=== PATIENT | male | born 1940 | race Caucasian/White ===

== ENCOUNTER → 2021-01-11 14:00 | Outpatient (CLI) | payer MEDICARE, SELFPAY ==
[2021-01-11 14:35] LABS: Chloride 104 mmol/L (98-107)
[2021-01-11 14:36] LABS: Potassium 4.8 mmoL/L (3.5-5.1); Sodium 139 mmol/L (136-145)
[2021-01-11 14:38] LABS: Blood Urea Nitrogen 13 mg/dl (9-20); Estimated Glomerular Filt Rate 81 ml/min (>60); GFR (African American) 98 ML/MIN (>60)
[2021-01-11 14:39] LABS: Alanine Aminotransferase 22 U/L (12-78); Albumin Level 3.8 g/dl (3.5-5.0); Albumin/Globulin Ratio 1.5 (1.1-1.8); Alkaline Phosphatase 86 U/L (38-126); Anion Gap 11.8 mEq/L (5-15); Aspartate Amino Transferase 26 U/L (17-59); Bilirubin,Total 0.4 mg/dl (0.2-1.3); Calcium 9.1 mg/dl (8.4-10.2); Carbon Dioxide 28 mmol/L (22.0-30.0); Chol/HDL Ratio 2.3 (1-3.5); Cholesterol 136 mg/dl (140-200); Globulin 2.6 g/dL (1.3-3.2); Glucose 73 mg/dl (74-100); HDL Cholesterol 58 mg/dl (40-60); Total Protein,Serum 6.4 g/dl (6.3-8.2); Triglycerides 132 mg/dl (30-150); VLDL Cholesterol 26 mg/dL (0-40)
[2021-01-11 14:56] LABS: Direct LDL Cholesterol 49.86 mg/dL (100-129)
[2021-01-11 21:39] LABS: Prostate Specific Ag Screen 2.4 ng/ml (0.0-4.0)
== END ==
PROVIDERS: Visit Provider Family Medicine
DX: I10 Essential (primary) hypertension (principal); Z12.5 Encounter for screening for malignant neoplasm of prostate; E78.5 Hyperlipidemia, unspecified
CPT/HCPCS: 80053; 80061; G0103

== ENCOUNTER → 2023-01-29 12:22 | Outpatient (CLI) | payer MEDICARE, SELFPAY ==
[2023-01-29 19:05] LABS: Alanine Aminotransferase 30 U/L (12-78); Albumin/Globulin Ratio 1.4 (1.1-1.8); Alkaline Phosphatase 110 U/L (38-126); Aspartate Amino Transferase 37 U/L (17-59); Bilirubin,Total 0.3 mg/dl (0.2-1.3); Blood Urea Nitrogen 18 mg/dl (9-20); Calcium 8.7 mg/dl (8.4-10.2); Carbon Dioxide 25 mmol/L (22.0-30.0); Chloride 106 mmol/L (98-107); Chol/HDL Ratio 3.3 (1-3.5); Cholesterol 163 mg/dl (140-200); Estimated Glomerular Filt Rate 64 ml/min (>60); GFR (African American) 78 ML/MIN (>60); Globulin 2.8 g/dL (1.3-3.2); Glucose 88 mg/dl (74-100); HDL Cholesterol 49 mg/dl (40-60); Sodium 139 mmol/L (136-145); Total Protein,Serum 6.8 g/dl (6.3-8.2); Triglycerides 258 mg/dl (30-150); VLDL Cholesterol 52 mg/dL (0-40)
[2023-01-29 19:16] LABS: Direct LDL Cholesterol 73.91 mg/dL (100-129)
[2023-01-29 19:36] LABS: Prostate Specific Ag Screen 2.3 ng/ml (0.0-4.0)
== END ==
PROVIDERS: PCP Family Medicine; Visit Provider Family Medicine
DX: E78.5 Hyperlipidemia, unspecified (principal); I10 Essential (primary) hypertension; Z12.5 Encounter for screening for malignant neoplasm of prostate
CPT/HCPCS: 80053; 80061; G0103

== ENCOUNTER 2023-09-13 11:32 | Outpatient (CLI) | payer MEDICARE, SELFPAY ==
--- NOTE | 2023-09-13 11:35 | XR_ITS ---
FINAL REPORT CLINICAL HISTORY: SOB FINDINGS: 2 views of the chest were obtained . The heart is normal in size. The mediastinum is within normal limits. The lungs are hyperexpanded consistent with COPD. There is mild bibasilar atelectasis.. There is no pneumothorax. Osseous structures are unremarkable. IMPRESSION: COPD with mild bibasilar atelectasis. Reviewed, Interpreted and Dictated by Stanford Grigsby III, MD Transcribed by Leticia Hale Authenticated and [facility]
== END 2023-09-13 23:59 | disposition home or self-care (01) ==
LOC: RAD 11:34
PROVIDERS: PCP Family Medicine; Visit Provider Internal Medicine Pulmonary Disease
DX: R09.02 Hypoxemia (principal)
CPT/HCPCS: 71046

== ENCOUNTER 2023-10-02 08:51 | Outpatient (CLI) | payer MEDICARE, SELFPAY ==
--- NOTE | 2023-10-02 08:52 | CT_ITS ---
FINAL REPORT TECHNIQUE: Axial images were obtained from the lung apex to the mid abdomen by computed tomography. Coronal reformatted images were obtained. This study was performed with techniques to keep radiation doses as low as reasonably achievable, (ALARA). Individualized dose reduction techniques using automated exposure control or adjustment of mA and/or kV according to the patient''s size were employed. CLINICAL HISTORY: SOB COMPARISON: None FINDINGS: There is advanced emphysema. Scattered scarring is noted. There is no acute lung disease. Incidental note is made of a left lower lobe nodule on image 49 measuring 6 mm. No pleural or pericardial effusion is seen. No adenopathy is present. There is soft tissue asymmetry in the left piriform sinus. Recommend correlation with direct visualization. This could be related to cervical esophageal effacing the piriform sinus. IMPRESSION: No findings to account for patient's symptoms. 6 mm left lower lobe nodule. 6-month follow-up recommended. Soft tissue asymmetry left piriform sinus. Recommend correlation with direct visualization. Reviewed, Interpreted and Dictated by Jesus Nolasco MD Transcribed by Rowena Harley Authenticated and [facility]
[2023-10-02] MEDS: ALBUTEROL 0.083% 2.5 MG/3 ML NEB IH (10:26)
--- NOTE | 2023-10-02 10:26 | PC.NURSE ---
PFT complete weaned to Pre and Post Spirometry due to PT unable to complete a full loop efficiently, Pt gave best effort he is capable of. Albuterol 0.083% given via HHN, per written protocol, Pt tolerated tx well. 6 Minute Walk test completed.
== END 2023-10-02 23:59 | disposition home or self-care (01) ==
LOC: RAD 08:52
PROVIDERS: PCP Family Medicine; Visit Provider Internal Medicine Pulmonary Disease
DX: R91.8 Other nonspecific abnormal finding of lung field (principal); R07.89 Other chest pain; J44.1 Chronic obstructive pulmonary disease with (acute) exacerbation; R09.02 Hypoxemia; Z87.891 Personal history of nicotine dependence; R06.09 Other forms of dyspnea
CPT/HCPCS: 71250; 94060; 94618; J7613

== ENCOUNTER 2023-11-09 12:50 | Outpatient (CLI) | payer MEDICARE, SELFPAY ==
--- NOTE | 2023-11-09 12:50 | CT_ITS ---
FINAL REPORT TECHNIQUE: Thin section axial CT images with coronal and sagittal reformats were performed through the neck. This study was performed with techniques to keep radiation doses as low as reasonably achievable (ALARA). Individualized dose reduction techniques using automated exposure control or adjustment of mA and/or kV according to the patient''s size were employed. CLINICAL HISTORY: recurrent sinus infections, nasal congestion FINDINGS: There is abnormal loss of height throughout the cervical discs with prominent anterior osteophyte formation at C5-6. The paranasal sinuses are well aerated. No air-fluid levels are identified. There is dense vascular calcification of the carotid bifurcation. There are moderate changes of centrilobular emphysema. IMPRESSION: Degenerative disc disease as above. Reviewed, Interpreted and Dictated by Larry Camacho MD Transcribed by Jenny Chavez Authenticated and [facility]
== END 2023-11-09 23:59 | disposition home or self-care (01) ==
LOC: RAD 12:50
PROVIDERS: PCP Family Medicine; Visit Provider Nurse Practitioner
DX: J34.89 Other specified disorders of nose and nasal sinuses (principal); J32.9 Chronic sinusitis, unspecified; Z87.891 Personal history of nicotine dependence
CPT/HCPCS: 70490

== ENCOUNTER 2024-05-08 10:59 | Outpatient (CLI) | payer MEDICARE, SELFPAY ==
--- NOTE | 2024-05-08 11:12 | XR_ITS ---
FINAL REPORT TECHNIQUE: Chest PA & Lateral CLINICAL HISTORY: SOB COMPARISON: 09/13/2023 FINDINGS: 2 views of the chest were performed. The heart size is normal. The mediastinum is within normal limits. The lungs are hyperinflated. Chronic changes are noted at the bases. There are no pleural effusions. There is no pneumothorax. There appears to be a new 6.0 x 4.5 cm mass in the posterior right hemithorax, best seen on the lateral view. IMPRESSION: New right hemithorax mass. Recommend infused thoracic CT for further evaluation. Reviewed, Interpreted and Dictated by Larry Camacho MD Transcribed by Bernie Doe Authenticated and [facility]
== END 2024-05-08 23:59 | disposition home or self-care (01) ==
LOC: RAD 11:01
PROVIDERS: PCP Family Medicine; Visit Provider Internal Medicine Pulmonary Disease
DX: R06.02 Shortness of breath (principal)
CPT/HCPCS: 71046

== ENCOUNTER 2024-05-12 12:00 | Outpatient (CLI) | payer MEDICARE, SELFPAY ==
--- NOTE | 2024-05-12 12:01 | CT_ITS ---
FINAL REPORT TECHNIQUE: Axial images were obtained through the chest without contrast. Coronal and sagittal images were obtained and reviewed. This study was performed with techniques to keep radiation doses as low as reasonably achievable, (ALARA). Individualized dose reduction techniques using automated exposure control or adjustment of mA and/or kV according to the patient's size were employed. CLINICAL HISTORY: Pulm normal chest x-ray concerning for lung mass COMPARISON: Chest x-ray 05/08/[address] chest 10/01/2024 FINDINGS: There are few small scattered mediastinal lymph nodes. The heart size is normal. There is no pericardial or pleural effusion. Limited images of the upper abdomen demonstrate benign-appearing cysts in both kidneys. Right cyst measures 6.4 cm in greatest dimension. There is a new mass in the superior segment of the right lower lobe measuring 5.1 x 4.4 cm. There may be a few air bronchograms of the periphery of the mass. No other mass identified. There are moderate changes of centrilobular emphysema. IMPRESSION: Mass superior segment right lower lobe, new from prior. This could be inflammatory or neoplastic. PET-CT and/or tissue sampling recommended. Reviewed, Interpreted and Dictated by Larry Camacho MD Transcribed by Rowena Harley Authenticated and [facility]
== END 2024-05-12 23:59 | disposition home or self-care (01) ==
LOC: RAD 12:01
PROVIDERS: PCP Family Medicine; Visit Provider Internal Medicine Pulmonary Disease
DX: R91.8 Other nonspecific abnormal finding of lung field (principal)
CPT/HCPCS: 71250

== ENCOUNTER 2024-05-20 07:10 | Outpatient (CLI) | payer MEDICARE, SELFPAY ==
[2024-05-20] VITALS (13 sets, daily range): BP systolic 110–154; BP diastolic 55–84; PULSE 54–69; RESP 16–20; TEMP 36.6; O2SAT 91–98
--- NOTE | 2024-05-20 07:11 | CT_ITS ---
FINAL REPORT CLINICAL HISTORY: Lung Mass - RLL FINDINGS: CT GUIDED LUNG CORE BIOPSY. HISTORY: Right lower lobe mass ATTENDING PHYSICIAN: Dr. Nolasco PHYSICIAN LUMBER SALES SUPERVISOR: Delvis Jesus PA-C PROCEDURE: After informed consent was obtained and a timeout was performed, the patient was prepped and draped in usual sterile fashion over the posterior chest. Utilizing local anesthesia and sterile technique with a coaxial system, access to lesion was obtained under direct CT guidance. A total of 3 separate 18-gauge core biopsies were obtained. Post biopsy films demonstrate a small postprocedural pneumothorax. The patient received moderate procedural sedation. The patient tolerated the procedure well and left the department in good condition. PROCEDURAL SEDATION: 2 mg of IV Versed and 50 mcg of Fentanyl were administered. Continuous vital sign monitoring was used. An RN was present during the sedation process. Overall sedation time was 30 minutes. IMPRESSION: Status post CT guided core biopsy of right lower lobe mass without immediate significant complication. Films reviewed , interpreted and dictated by Dr. Nolasco. Transcribed by Delvis Villalta PA-C. Reviewed, Interpreted and Dictated by Jesus Nolasco MD Transcribed by KIM Jennings Authenticated and [facility]
[2024-05-20 07:48] LABS: Basophils % 0.3 % (0.1-2.0); Eosinophils # 0.2 K/mm3 (0.0-0.4); Eosinophils % 2.3 % (0.1-12.0); Hematocrit 40.8 % (42.0-52.0); Hemoglobin 13.2 g/dL (14.1-18.0); Lymphocytes # 1.9 K/mm3 (0.7-4.5); Lymphocytes % 21.3 % (10-50); Mean Corpuscular HGB Conc 32.4 g/dL (31.8-35.4); Mean Corpuscular Hemoglobin 29.2 pg (27.0-31.2); Mean Corpuscular Volume 90.3 fl (80-94); Monocytes # 1.2 K/mm3 (0.1-1.0); Monocytes % 13.6 % (1.7-9.3); Neutrophils # 5.5 K/mm3 (1.8-7.8); Neutrophils % 61.6 % (37.0-80.0); Platelet Count 274 K/mm3 (142-424); Red Blood Count 4.52 M/mm3 (4.60-6.20)
[2024-05-20 08:01] LABS: INR 0.85 (0.9-1.1); Prothrombin Time 9.5 seconds (9.2-12.1)
--- NOTE | 2024-05-20 08:47 | XR_ITS ---
FINAL REPORT CLINICAL HISTORY: POST BIOPSY COMPARISON: 05/08/2024 FINDINGS: Mild right basilar atelectasis is noted. The known right lung mass is not readily apparent on this portable view. There is no evidence of effusion or pneumothorax. Mediastinum is unremarkable. Heart size is normal. IMPRESSION: No pneumothorax postbiopsy. Reviewed, Interpreted and Dictated by Jesus Nolasco MD Transcribed by Rowena Harley Authenticated and [facility]
--- NOTE | 2024-05-20 11:53 | XR_ITS ---
FINAL REPORT CLINICAL HISTORY: 2HR FILM POST LUNG BX, shortness of breath COMPARISON: Chest x-ray 2 hours prior FINDINGS: There is no evidence of right-sided pneumothorax following right lung biopsy. The known right lung mass not evident on chest radiography. There is no evidence of pleural effusion. IMPRESSION: No evidence of pneumothorax. Reviewed, Interpreted and Dictated by Jesus Nolasco MD Transcribed by Bernie Doe Authenticated and [facility]
== END 2024-05-20 12:31 | disposition home or self-care (01) ==
PROVIDERS: PCP Family Medicine; Visit Provider Internal Medicine Pulmonary Disease
DX: R91.1 Solitary pulmonary nodule (principal)
CPT/HCPCS: 71045; 77012; 85025; 85610; 88305; 88312; 94762; J2250; J3010

== ENCOUNTER 2024-06-27 09:59 | Day surgery (SDC) | payer MEDICARE, SELFPAY ==
[2024-06-27 10:09] VITALS: BP 137/65; PULSE 78; RESP 22; TEMP 36.2; O2SAT 94; BMI 33.0
[2024-06-27] MEDS: 0.9 % SODIUM CHLORIDE 500 ML 25 ML IV (10:32)
[2024-06-27 10:35] VITALS: BP 145/75; PULSE 74; RESP 18; TEMP 36.4; O2SAT 93
--- NOTE | 2024-06-27 10:36 | HMH.PROCNOTE ---
[facility] Procedure Note Date: 06/27/24 Time: 10:37 Procedure Note:: Chart review: The patient is here for evaluation of intermittent bouts of gross hematuria. He is status post a prior TUR prostate. He says that he is happy how he urinates at home. He is on Proscar and Flomax. He had a CT scan on 07/01 that suggested a bladder mass. He has bilateral renal cysts at 8.5 cm. He has severe right renal atrophy. He also has a 2 cm right adrenal mass. Preop diagnosis: Hematuria Postop diagnosis: Hematuria; prostatic urethritis; erythematous patch right lateral bladder wall Operative note: The patient was brought to the cystoscopy suite. He is prepped and draped using a 6 standard technique. He underwent flexible cystoscopy. The anterior urethra is unremarkable. The posterior urethra from the level of the verumontanum has erythematous changes and tends to be hemorrhagic to touch. At the bladder neck the patient has had prior TUR prostate that remains open. The patient's bladder has a somewhat raised patch on the right lateral bladder wall. I hold somewhat concerning for bladder lesion right lateral wall but a raised area that may need biopsy considerations. For hematuria he might need retrogrades as well and/or uretersocopy. I will consult urology. We just do not want to miss carcinoma. I will submit a urine cytology today. He very well may need fulguration of the prostatic urethra because that seems to be a bleeding source. He is already on Proscar. I am going to recommend consultation at to see if the biopsy or fulguration of the posterior urethra is warranted..
== END 2024-06-27 10:53 | disposition home or self-care (01) ==
PROVIDERS: PCP Family Medicine; Visit Provider Urology
PROC: 0TJB8ZZ Inspection of Bladder, Via Natural or Artificial Opening Endoscopic (ICD-10-PCS; CPT 52000; principal; 2024-06-27 11:15)
DX: N34.2 Other urethritis (principal); L53.9 Erythematous condition, unspecified; R31.0 Gross hematuria
CPT/HCPCS: 52000

== ENCOUNTER 2024-08-19 10:41 | Outpatient (CLI) | payer MEDICARE, SELFPAY ==
--- OUTSIDE RECORDS SUMMARY | 2024-08-19 10:44 | XMS_ITS | Data Portability ---
Author Organization [place] - [facility] - [facility] Address [address] [place] [id number] Assessment Encounter Date Assessment Date Assessment LastModified by Organization Details LastModified Time 02/01/2022 02/01/2022 Patient Educatio n was printed, I have reviewed the Past Medical, Family, and Social Histories along with ROS and all orders in today's record, and have noted any changes. Medications, charts and records reviewed in full today. . Blood pressure 108/60, heart rate 59, weight 211.6 lb. . PFT: 01/2022 revealed severe obstruction with marked improvement post bronchodilators. LAST ECHO: 06/2021 LVEF of 60% to 70%. LAST ISCHEMIC EVAL: None on file. LAST HEART CATH: 06/2021 mild diffuse coronary artery disease. LAST LDL: None on file. Followed by PCP. LAST CNI: 06/2021 bilateral 1% to 39% ICA stenosis. PAST LHC: None on file. . Plan: Offered pulmonology referral. Offered electrophysiology referral. After discussion of potential benefits of subspecialty referral, the patient and his daughter wished to declined at this time. 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 EKG at follow-up. Follow-up in 3 to 4 months. . -Continue other current medications. -Continue aggressive risk factor modification. -Recommend LDL less than 70. -Encouraged regular exercise and activity. . . . . This note was dictated using Platogo software. If something is unclear, or does not make sense, please do not hesitate to contact our office at [phone] for clarification. . Not available 02/01/2022 14:30:18 05/29/2022 05/29/2022 Patient Educatio n was printed, I have reviewed the Past Medical, Family, and Social Histories along with ROS and all orders in today's record, and have noted any changes. Medications, charts and records reviewed in full today. . Blood pressure 130/62, heart rate 71, weight 223 lb. EKG today reveals sinus rhythm with a rate of 71, low voltage throughout, possible chronic pulmonary pattern, abnormal EKG. . PFT: 01/2022 revealed severe obstruction with marked improvement post bronchodilators. LAST ECHO: 06/2021 LVEF of 60% to 70%. LAST ISCHEMIC EVAL: None on file. LAST HEART CATH: 06/2021 mild diffuse coronary artery disease. LAST LDL: None on file. Followed by PCP. LAST CNI: 06/2021 bilateral 1% to 39% ICA stenosis. PAST LHC: None on file. . Plan: Restart Plavix. Recommend laboratory studies in the next few weeks. Monitor CBC. No other changes from a cardiovascular standpoint. EKG at follow-up. Follow-up in 3 to 4 months. . -Continue other current medications. -Continue aggressive risk factor modification. -Recommend LDL less than 70. -Encouraged regular exercise and activity. . . . . This note was dictated using Platogo software. If something is unclear, or does not make sense, please do not hesitate to contact our office at [phone] for clarification. . Not available 05/29/2022 15:52:26 Plan of Treatment Reminders Order Date Submit Date Provider Last Modified By Organization Details Last Modified Time Details Appointments None recorded. Lab T4, free, serum 2021 022 [email or web address] 1 [facility] (Centralized Scheduling), [place] [place], [address], 10:48:15 TSH, serum or plasma 2021 022 [email or web address] 1 [facility] (Centralized Scheduling), [place], [address], 10/05/202 2 10:48:16 CMP, serum or plasma 2021 022 ZAK Jenkins (Centralized Scheduling), [address] [place] [address] [place], [address], 2 15:37:51 Referral None recorded. Procedures None recorded. Surgeries None recorded. Imaging electrocard [facility]ogram 2022 023 [email or web address], [address] [place] [address] [address], [place], [address], 3 14:29:09 PFT, complete 2021 022 [email or web address] 1 [facility] (Centralized Scheduling), [place], [address], 2 10:48:28 CT, chest, w/o contrast 2021 022 [email or web address] 1 [facility] (Centralized Scheduling), [facility] [place] [address] [place], [address], 2 10:48:28 electrocard iogram [email or web address], [address] [place] [address] [address], [place], [address], 2 13:55:51 Medication Orders amiodarone 200 mg tablet 2021 [email or web address], [address], 2 11:11:21 Patient TargetsNo targets recorded. Patient InstructionsNo instructions recorded. Reason for Referral None Reported. Results Created Date Observation Date Name Description Value Unit Range Abnormal Flag Note LastModifiedBy Organization Detail LastModifiedTime 01/10/20 22 01/09/2022 COMP METAB OLIC PANEL note See Note Order ing Provi amy: Delbert Padilla is ENDOSCOPE TECHNICIAN Not Available [address] [place], [address], 01/09/2022 15:37:51 01/10/20 22 01/09/2022 COMP METAB OLIC PANEL sodium 138 mmol/ L 136-14 5 normal Not Available [address] , [place], [address], 01/09/2022 15:37:51 01/10/20 22 01/09/2022 COMP METAB OLIC PANEL potassium 4.8 mmol/ L 3.5-5. 1 normal Not Available [address] Tianna Rose, [place], [address], 01/09/2022 15:37:51 01/10/20 22 01/09/2022 COMP METAB OLIC PANEL chloride 104 mmol/ L 98-107 normal Not Available [address] Tianna Rose, [place], [address], 01/09/2022 15:37:51 01/10/20 22 01/09/2022 COMP METAB OLIC PANEL carbon dioxide 25 mmol/ L 24-33 normal Not Available [address] Tianna Rose, [place], [address], 01/09/2022 15:37:51 01/10/20 22 01/09/2022 COMP METAB OLIC PANEL anion gap 13.8 mmol/ L 10-20 normal Not Available [address] Tianna Rose, [place], [address], 01/09/2022 15:37:51 01/10/20 22 01/09/2022 COMP METAB OLIC PANEL glucose 86 mg/dL 70-99 normal Not Available [address] Tianna Rose, [place], [address], 01/09/2022 15:37:51 01/10/20 22 01/09/2022 COMP METAB OLIC PANEL blood urea nitrogen 21 mg/dL 7-18 high Not Available [address] , [place], [address], 01/09/2022 15:37:51 01/10/20 22 01/09/2022 COMP METAB OLIC PANEL creatinine 1.19 mg/dL 0.70-1 .30 normal Not Available [address] , [place], [address], 01/09/2022 15:37:51 01/10/20 22 01/09/2022 COMP METAB OLIC PANEL BUN/creatini ne ratio 17 12-20 normal Not Available [address] , [place], [address], 01/09/2022 15:37:51 01/10/20 22 01/09/2022 COMP METAB OLIC PANEL total protein 6.3 g/dL 6.4-8. 2 low Not Available [address] Tianna Rose, [place], [address], 01/09/2022 15:37:51 01/10/20 22 01/09/2022 COMP METAB OLIC PANEL albumin 3.0 g/dL 3.4-5. 0 low Not Available [address] , [place], [address], 01/09/2022 15:37:51 01/10/20 22 01/09/2022 COMP METAB OLIC PANEL globulin 3.3 g/dL 1.5-4. 0 normal Not Available [address] , [place], [address], 01/09/2022 15:37:51 01/10/20 22 01/09/2022 COMP METAB OLIC PANEL albumin/glob ulin ratio 0.9 0.5-2. 0 normal Not Available [address] , [place], [address], 01/09/2022 15:37:51 01/10/20 22 01/09/2022 COMP METAB OLIC PANEL calcium 8.3 mg/dL 8.5-10 .1 low Not Available [address] , [place], [address], 01/09/2022 15:37:51 01/10/20 22 01/09/2022 COMP METAB OLIC PANEL osmolality serum calculated 277 mOsm/ kg 272-28 8 normal Not Available [address] , [place], [address], 01/09/2022 15:37:51 01/10/2001/09/2022 COMP METAB OLIC PANEL glom filtr rate (estimated) 59 mL/mi n >60 low Not Available [address] [place], [address], 01/09/2022 15:37:51 01/10/20 22 01/09/2022 COMP METAB OLIC PANEL GFR est (if -amer ican) > 60 mL/mi n >60 normal Not Available [address] , [place], [address], 01/09/2022 15:37:51 01/10/20 22 01/09/2022 COMP METAB OLIC PANEL bilirubin total 0.2 mg/dL 0.2-1. 0 normal Use of this assay is not recom charlee d for patie nts under going treat ment with Eltro mbopa g due to the poten tial for false ly eleva germán resul ts. Not Available [address] [place], [address], 01/09/2022 15:37:51 01/10/20 22 01/09/2022 COMP METAB OLIC PANEL SGOT/AST 15 U/L 15-37 normal Not Available [address] , [place], [address], 01/09/2022 15:37:51 01/10/20 22 01/09/2022 COMP METAB OLIC PANEL SGPT/ALT 25 U/L 16-63 normal Not Available [address] , [place], [address], 01/09/2022 15:37:51 01/10/20 22 01/09/2022 COMP METAB OLIC PANEL alkaline phosphatase total 108 U/L 46-116 normal Not Available [address] , [place], [address], 01/09/2022 15:37:51 01/10/20 22 01/09/2022 COMP METAB OLIC PANEL performing lab see note - [facility] R [address] [facility] [address] Not Available [address] , [place], [address], 01/09/2022 15:37:51 01/10/20 22 01/09/2022 THYRO ID PANEL W/TSH note See Note Order ing Provi amy: Delbert Padilla is ENDOSCOPE TECHNICIAN Not Available [address] , [place], [address], 01/09/2022 15:37:51 01/10/20 22 01/09/2022 THYRO ID PANEL W/TSH T4 free 1.24 NG/dL 0.76-1 .46 normal This test may be affec germán by high level s of bioti n, found in some presc ripti on and over- the-c ounte r suppl ement s. [facility], patie nts glenys luna disco ntinu e bioti n 3 days befor e testi ng. Resul ts obtai ryan after recen t bioti n inges tion glenys luna be inter prete d with cauti on. Not Available [address] , [place], [address], 01/09/2022 15:37:51 10/03/20 22 01/09/2022 THYRO ID PANEL W/TSH thyroid stimulating hormone 2.02 uIU/m L 0.36-3 .74 normal This test may be affec germán by high level s of bioti n, found in some [facility] ripti on and over- the-c ounte r suppl ement s. [facility], patie nts shoul d disco ntinu e bioti n 3 days befor e testi ng. Resul ts obtai ryan after recen t bioti n inges tion shoul d be inter prete d with cauti on. Not Available [address] , [place], [address], 01/09/2022 15:37:51 01/10/2001/09/2022 THYRO ID PANEL W/TSH performing lab see note - [facility] [address] [facility] [address] Not Available [address] , [place], [address], 01/09/2022 15:37:51 12/29/19 elect rocar diogr am No observ ation record ed. [email or web address] [address], [place], [address], 12/28/2021 10:08:38 05/29/19 23 elect rocar diogr am No observ ation record ed. [email or web address] [address], [place], [address], 05/29/2022 12:55:00 05/29/19 23 05/29/2022 elect rocar diogr am No observ ation record ed. [email or web address] Not Available 2022 12:56:00 Result Notes None recorded. Problems Name Problem SNOMED Code Status Onset Date Resolution Date Notes Provider Name and Address Organization Details Recorded Time Essential hypertension 63158610 Active 2021 PINEDA Jacome - [place] [facility] & [place] 2 10:21:35 Coronary atherosclerosi s 185380515 Active 2021 Ester lynn null, [place] - [facility] - [place] & [place] 2 10:21:35 Ventricular tachycardia 28135671 Active 2021 Ester lynn null, [place] - [facility] [place] [facility] [place] 2 10:21:35 Bilateral stenosis of carotid arteries 490330092 Active 2021 Ester lynn null, [place] - [facility] [place] [facility] [place] 2 10:21:35 Hyperlipidemia 04803510 Active 2021 Ester lynn null, [place] - [facility] - [place] & [place] 2 10:21:35 Problem Notes None recorded. Procedures Surgical History Date Name Laterality Status Provider Name and Address Organization Details Recorded Time 022 Cardiac Catheterization completed Beverley Sal[place] - [facility] - [place] & [place] 09/26/2022 10:54:11 Colonoscopy completed Talya Blunt [place] - L [facility] - [place] & [place] 05/29/2022 12:54:29 prostatectomy completed Ester Valentin [place] - [facility] - [place] & [place] 12/28/2021 10:22:14 Imaging Results Imaging Date Name Status LastModified by Organization Details LastModified Time 12/28/2021 electrocardiogram completed [email or web address] [address], [place], [address], 12/28/2021 10:08:38 05/29/2022 electrocardiogram completed [email or web address] Mv [address], [place], [address], 05/29/2022 12:55:00 05/29/2022 electrocardiogram completed [email or web address] Informa tion not available 05/29/2022 12:56:00 Procedure Notes None recorded. Medical Equipment None Reported. Allergies Allergen ID Allergen Name Allergen Category Reaction Reaction Severity Criticality Documentation Date Start Date Code Code System Note Provider Name and Address Organization Details Recorded Time 67567 Product containin g penicilli n (product) medicatio n Not available Not available Not available 05/28/2022 04943 8001 SNOMED Ester Samara lynn null, [place] - [facility] & [place] 3 19:00:46 Medications Name Sig Start Date Stop Date Status Note LastModified by Organization Details LastModified Time atorvastati n 20 mg tablet TAKE ONE (1) TABLET BY MOUTH EVERY DAY active Not Available Not Available No t Available amiodarone 200 mg tablet Take 0.5 tablets every day by oral route for 30 days. 2021 active SW Not Available Not Available Not Avai lable clopidogrel 75 mg tablet TAKE 1 TABLET BY MOUTH EVERY DAY active Not Available Not Available No t Available aspirin 81 mg tablet,mary yed release 1 tablet Orally Once a day for 90 days active SW Not Available Not Available No t Available metoprolol succinate ER 25 mg tablet,exte nded release 24 hr TAKE ONE (1) TABLET BY MOUTH EVERY DAY 2023 active Not Available Not Available Not Avai lable Ventolin HFA 90 mcg/actuati on aerosol inhaler TWO (2) PUFF INHALED FOUR TIMES A DAY NEEDED FOR SHORTNESS OF BREATH OR WHEEZING 12/28 completed Not Available Not Available Not Available amlodipine 10 mg-benazepr il 20 mg capsule TAKE 1 CAPSULE BY MOUTH EVERY DAY active Not Available Not Available No t Available ezetimibe 10 mg tablet TAKE 1 TABLET BY MOUTH EVERY DAY active Not Available Not Available No t Available dutasteride 0.5 mg-tamsulos in ER 0.4 mg capsule ext.release 24hr mphas TAKE 1 CAPSULE BY MOUTH EVERY DAY active Not Available Not Available No t Available Vitals Date Recorded Body height Body weight Oxygen saturation Oxygen saturation in Arterial blood by Pulse oximetry Heart rate Systolic blood pressure Diastolic blood pressure Provider Name and Address Organization Details Last Updated DateTime 2 162.56 cm 33914.4 4 g 92 % 92 % 61 /min 122 mm[Hg] 82 mm[Hg] Ester lynn [place] - [facility] & [place] 2 10:19:12 Date Recorded Body height Body mass index (BMI) Body weight Oxygen saturation Oxygen saturation in Arterial blood by Pulse oximetry Heart rate Systolic blood pressure Diastolic blood pressure Provider Name and Address Organization Details Last Updated DateTime 3 175.26 cm 32.9 kg/m2 978779. 1 g 93 % 93 % 71 /min 130 mm[Hg] 62 mm[Hg] Talya SUNG [facility] & [place] 3 12:53:19 Date Recorded Body height Body mass index (BMI) Body weight Oxygen saturation Oxygen saturation in Arterial blood by Pulse oximetry Heart rate Systolic blood pressure Diastolic blood pressure Provider Name and Address Organization Details Last Updated DateTime 2 162.56 cm 36.3 kg/m2 16702.1 5 g 93 % 93 % 59 /min 108 mm[Hg] 60 mm[Hg] Ester Pascual leah [facility] & [place] 2 15:44:18 Social History Question Answer Notes LastModified by [employer] Details LastModified Time Tobacco Smoking Status Former Smoker Talya Blunt [facility] & [place] 05/29/2022 12:54:17 What Is Your Level Of Caffeine Consumption? None [email or web address] Information not available 12/28/2021 Sex: Unknown Functional Status Question Answer Note LastModified by [employer] Details LastModified Time Do you use any illicit or recreational drugs? No [email or web address] Information not available 12/28/2021 What is your level of alcohol consumption? None [email or web address] Information not available 12/28/2021 Mental Status None recorded. Family History Relationship Description Onset Age of this Age Resolved Age Notes LastModified by Organization Details LastModified Time Father No current problems or disability [email or web address] Not available 0 12/28/2021 10:21:47 Mother No current problems or disability [email or web address] Not available 0 12/28/2021 10:21:47 Medical History Condition Response Coronary Artery Disease Y Hyperlipidemia Y Hypertension Y High Cholesterol Y Past Encounters Encounter ID Performer Location Encounter Start Date Encounter Closed Date Diagnosis/Indication Diagnosis SNOMED-CT Code Diagnosis ICD10 Code Diagnosis Note [id number] Liang Vidal MD [address] [place] [id number] 12/28/2021 09:14:51 12/28/2021 09:48:17 Coronary atherosclerosis 106558106 I25.10 Essential hypertension 14204313 I10 Patient Education was printed, I have reviewed the Past Medical, Family, and Social Histories along with ROS and all orders in today's record, and have noted any changes.Me dications, charts and records reviewed in full today. EKG today reveals sinus rhythm with first-degr ee AV block, rate of 61 beats per minute, poor R-wave progressio n, nonspecifi c T-wave abnormalit y, abnormal EKG. LAST ECHO: 06/2021 LVEF of 60% to 70%. LAST ISCHEMIC EVAL: None on file. LAST HEART CATH: 06/2021 mild diffuse coronary artery disease. LAST LDL: None on file. Followed by PCP. LAST CNI: 06/2021 bilateral 1% to 39% ICA stenosis.* * PAST LHC: None on file..Plan :It is unlikely that the patient's amiodarone therapy has caused significan t structural pulmonary changes due to the relatively recent addition of this medication . It is far more likely that the patient's shortness of breath is a consequenc e of long-term tobacco abuse. We will decrease the patient's amiodarone 100 mg once daily. We will screen for pulmonary fibrosis as well as perform laboratory studies and pulmonary function test.Pulmo nary function test.Labor atory studies.Hi gh-resolut ion CT chest.Decr ease amiodarone 100 mg once daily.Foll ow-up in 4 to 5 weeks.-Con tinue other current medication s.-Continu e aggressive risk factor modificati on.-Recomm end LDL less than 70.-Encour aged regular exercise and activity.. .Ru Chisholm APRN, am scribing for, and in the presence of, Liang Vidal MD...Liang Chisholm M.D. performed the services as described in this documentat ion, as scribed by Ru Younger APRN in my presence, and it is both accurate and complete.. .This note was dictated using Platogo software. If something is unclear, or does not make sense, please do not hesitate to contact our office at [phone] for clarificat ion.. 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 [id number] RU YOUNGER NP, S [address] [place] [address] 6 02/01/2022 13:14:50 02/01/2022 14:24:29 Coronary atherosclerosis 678668961 I25.10 Essential hypertension 82173364 I10 Hyperlipidemia 80397125 E78.5 Ventricula r tachycardia 13251551 I47.20 Bilateral stenosis of carotid arteries 799660883 I65.23 Long-term current use of amiodarone 7818639975 04493 Z79.899 Dyspnea on exertion 6084 5006 R06.09 Tobacco de pendence syndrome 24844743 F17.200 [id number] Liang Vidal MD [address] [place] [address] 6 05/29/2022 08:20:08 05/29/2022 09:16:37 Coronary atherosclerosis 513683972 I25.10 Essential hypertension 75718038 I10 Hyperlipidemia 86820114 E78.5 Ventricula r tachycardia 17163753 I47.20 Bilateral stenosis of carotid arteries 237733910 I65.23 Long-term current use of amiodarone 5528866599 94837 Z79.899 Dyspnea on exertion 6084 5006 R06.09 Tobacco de pendence syndrome 53767660 F17.200 Health Concerns Section Related Observation LastModified by Organization Detai ls LastModified Time None Recorded Concern Status LastModified by Organization Details LastModified Time None Recorded Advance Directives Directive None Recorded Payers Insurance Date Sequence Insurance Name Policy Number Policy Baron Covered Member ID Baron Member ID Guarantor Name 09/26/2022 1 [employer] (MEDICARE REPLACEMENT/A DVANTAGE - PPO) Celestino Lundy [id number] Celestino Lundy Notes Date Note Type Note Provider Name and Address Organization Details Recorded Time 12/28/2021 text/html Celestino is an 81-y ear-old male who is seen today in follow-up. The patient has a history significant for paroxysmal ventricular tachycardia, hypertension, hyperlipidemia, coronary artery disease, carotid artery stenosis. The patient reports that he has had an apparent worsening of his shortness of breath with an increase in frequency, now occurring with less exertion. The patient's family physician is concerned that this may be related to his amiodarone. No other cardiovascular or cardiopulmonary complaints. RU YOUNGER NP, S [address] [place] [address],[address], [place], [address], [facility] 12/28/2021 13:10:44 02/01/2022 text/html Celestino is an 81-y ear-old male who is seen today in follow-up. The patient has a history significant for paroxysmal ventricular tachycardia, hypertension, hyperlipidemia, coronary artery disease, carotid artery stenosis.Since our last visit, the patient had pulmonary function testing which revealed severe obstruction with marked improvement post bronchodilators. The patient indicates that his breathing has improved substantially. The patient has an albuterol inhaler from his primary care provider. The patient had his amiodarone decreased from 200 mg once daily to 100 mg once daily at our last visit. The patient reports that overall he is feeling much better. No other complaints. The patient was unable to get his CT of the chest as he had a CT of the chest earlier this year. RU YOUNGER NP, S [address] [place] [address],[address], [place], [address], [facility] & [place] 02/01/2022 16:05:31 05/29/2022 text/html Celestino is an 81-y ear-old male who is seen today in follow-up. The patient has a history significant for paroxysmal ventricular tachycardia, hypertension, hyperlipidemia, coronary artery disease, carotid artery stenosis.Since our last visit, the patient reports that he has been doing well. The patient did have two colonoscopies with polypectomies on multiple polyps over the last month. The patient had some bleeding was taken off Plavix. The patient is no longer taking aspirin. The patient was told by his dry cell tester that he can start Plavix again today. The patient has no cardiovascular or cardiopulmonary complaints. RU YOUNGER NP, S [address] [place] [address],[address], [place], [address], [place] - [facility] - [place] & [place] 05/29/2022 15:53:27
--- NOTE | 2024-08-19 11:00 | CT_ITS ---
PROCEDURE INFORMATION: Exam: CT Chest Without Contrast; Diagnostic Exam date and time: 08/19/2024 10:44 AM Age: 83 years old Clinical indication: Condition or disease; Lung condition and disease; Other: Mass; Additional info: 3-month follow-up TECHNIQUE: Imaging protocol: Diagnostic computed tomography of the chest without contrast. Radiation optimization: All CT scans at this facility use at least one of these dose optimization techniques: automated exposure control; mA and/or kV adjustment per patient size (includes targeted exams where dose is matched to clinical indication); or iterative reconstruction. COMPARISON: CT CHEST WO CON 05/12/2024 12:01 PM FINDINGS: Lungs: There is significant decrease in size of mass within the superior segment right lower lobe favoring benign inflammatory etiology. There is sessile shape. Consolidation remaining at this area whichr in the sagittal plane measures 3 x 1 cm. There are scattered upper lobe emphysematous changes and mild bibasilar interstitial lung changes, stable. There is also some scattered linear atelectasis at the lung bases unchanged. Pleural spaces: Unremarkable. No pneumothorax. No pleural effusion. Heart: Heart is not significantly enlarged. There are moderate calcifications of the coronary arteries. No significant pericardial effusion. Lymph nodes: Scattered small mediastinal lymph nodes unchanged and likely benign by size criteria. Vasculature: There are diffuse atherosclerotic changes throughout the thoracic aorta. There is no aortic aneurysm. Kidneys: Multiple bilateral renal cysts partially visualized redemonstrated. Bones/joints: Multilevel bridging anterolateral endplate osteophytes throughout the thoracic spine redemonstrated than 80 secondary to DISH or ankylosing spondylitis. No acute bony abnormalities detected. Soft tissues: Mild bilateral gynecomastia unchanged. IMPRESSION: Significant decrease in size of right lower lobe lung mass now measuring 3 x 1 cm presumed inflammatory nature. Recommend additional three-month follow-up study continued surveillance.
== END 2024-08-19 23:59 | disposition home or self-care (01) ==
LOC: RAD 10:42
PROVIDERS: PCP Family Medicine; Visit Provider Internal Medicine Pulmonary Disease
DX: R91.8 Other nonspecific abnormal finding of lung field (principal)
CPT/HCPCS: 71250

== ENCOUNTER 2024-10-13 13:19 | Outpatient (CLI) | payer MEDICARE, SELFPAY ==
--- OUTSIDE RECORDS SUMMARY | 2024-08-11 11:15 | XMS_ITS | Encounter Summary ---
Author Organization Healthcare Address [address] [place] [address] Care Team Providers Care Kiln Transfer Operator Name Role Phone Ronny Belle MD Primary Care Provider Reason for Referral * (Routine) - Incomplete Specialty Diagnoses / Procedures Referred By Contarlin t Referred To Contact Diagnoses Prostate mass Procedures Cysto- Urology Ben Harman MD [address] [address] Phone: tel: fax: Referral ID Status Reason Start Date Expiration Date V isits Requested Visits Authorized [id number] Incomplete 08/11/2024 02/10/2026 1 1 Reason for Visit * Reason Comments Advice Only Encounter Details Date Type Department Care Team ([facility] [address] Contact Info) Description 08/11/2024 11:15 AM EDT Consult Medical Office Building Urology [address], [address] [place] [address] Ben Harman MD [id number] [place] [address] Prostate mass (Primary Dx) Social History Tobacco Use Types Packs/Day Years Used Date Smoking Tobacco: Former Cigarettes Smokeless Tobacco: Never Tobacco Cessation:Counseling Given: Not Answered Alcohol Use Standard Drinks/Week Comments Never 0 (1 standard drink = 0.6 oz pur e alcohol) PHQ-2 Answer Date Recorded Patient Health Questionnaire-2 Score 0 08/11/2024 CAGE ASSESSMENT Answer Date Recorded Cage unable to access Not on file 08/22/2024 Cage max number of drinks Not on file 2024 Cage Beverages a week Not on file 08/22/2024 Have you ever felt you should CUT down on your d rinking? 0 08/22/2024 Have you been ANNOYED by people criticizing your drinking? 0 08/22/2024 Have you felt GUILTY about your drinking? 0 08/22/2024 Have you had a drink first t hreminio in the morning (EYE-LAP MACHINE OPERATOR) to steady your nerves or to get rid of a hangover? 0 08/22/2024 CAGE Questionnaire Score 0 025 Sex and Gender Information Value Date Recorded Sex Assigned at Male 08/22/2024 8:21 AM EDT Legal Sex Male 2:04 PM EDT Gender Identity Not on file Sexual Orientation Not on file documented as of this encounter Last Filed Vital Signs Vital Sign Reading Time Taken Comments Blood Pressure 124/63 08/11/2024 10:38 AM EDT Pulse 73 08/11/2024 10:38 AM EDT Temperature - - Respiratory Rate - - Oxygen Saturation 91% 08/11/2024 10:38 AM EDT Inhaled Oxygen Concentration - - Weight 108 kg (238 lb 1.6 oz) 08/11/2024 10:38 A M EDT Height 177.8 cm (5' 10 ) 08/11/2024 10:38 AM EDT Body Mass Index 34.16 08/11/2024 10:38 AM EDT documented in this encounter Functional Status * Over the past 2 weeks, how often have you been bothered by any of the following problems? Question Answer Date of Assessment Author Little interest or pleasure in doing things Not at all 08/11/2024 10:46 AM EDT Susan Arreola Feeling down, depressed, or hopeless Not at all 08/11/2024 10:46 AM EDT Susan Arreola Patient Health Questionnaire -2 Score 0 08/11/2024 10:46 AM EDT Susan Arreola * Calculated C-SSRS Risk Score (Lifetime/Recent) Answer Date of Assessment Author No Risk Indicated 08/23/2024 6:00 AM EDT Jeffrey Alcazar * Question Answer Date of Assessment Author 1. Wish to be (Past 1 Month) No 025 6:00 AM EDT Micha Alcazar 2. Non-Specific Active Suici joyce Thoughts (Past 1 Month) No 08/23/2024 6:00 AM EDT Micha Alcazar 6. Suicidal Behavior (Lifetime) No 6:00 AM EDT Micha Alcazar documented as of this encounter Miscellaneous Notes * Progress Notes - Windy Zuniga MD - 08/11/2024 11:15 AM EDTAssociated Order(s): Cysto- Urology Post-Procedure Diagnose(s): Prostate mass Urology Consult Note Assessment and Plan: Celestino Lundy is a 83yo male with enlarged prostate s/p TURP (2000) who presents today with CT findings concerning for bladder mass, right adrenal mass, bilateral renal cysts discovered on CT imaging after versus hematuria. Patient had a cystoscopy by an outside urologist Dr. Chavez, which are risks concern for bladder tumor. 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 The patient is having obstructive lower urinary tract symptoms and hematuria. We will proceed to the operating room for TURP and histologic evaluation. The patient has bilateral simple appearing multifocal renal cysts as well as small adrenal adenomas with no obvious functional component based on symptomatology. Windy Zuniga MD General surgery preliminary PGY [address] Ben Harman Chief Complaint: CT findings of bladder mass, R adrenal mass, bilateral renal cysts Referring Provider: Dr. Chavez History of Present Illness: Celestino Lundy is a 83yo male who presents for evaluation of bladder mass, R adrenal mass, bilateral renal cysts seen on imaging. Patient states that in June of this year he had sudden onset of gross hematuria. Patient states that his hematuria lasted for a couple of days, was seen by his primary carephysician who ordered a CT scan. This demonstrated a bladder mass, right adrenal mass, bilateral renal cyst for which she was referred here. Patient denies any other symptoms. He states that if it were not for the hematuria he would have no idea that this was occurring. Patient denies any dysuria, incontinence, increased frequency, flank or abdominal pain. Patient states that Dr. Chavez performeda cystoscopy in clinic in June 2024 which he was concerned about a potential bladder tumor. I personally reviewed and updated the patient's past medical, surgical, social, and family histories Pertinent medical history includes HTN, HLD, enlarged prostate s/p TURP (2000). Pertinent surgicalhistory includes TURP 2000. The patient's last colonoscopy was in 2022 during which multiple polypswere resected. The patient states that he has had multiple family members including his mother, father, sister from cancer of unknown etiology. [facility] Review of Systems: A complete 14 point ROS was performed and reviewed- please see HPI and scanned/signed intake form. Medical History[1] Surgical History[2] Family History[3] Social History Socioeconomic History Marital status: Spouse name: Not on file Number of children: Not on file Years of education: Not on file Highest education level: Not on file Occupational History Not on file Tobacco Use Smoking status: Former Types: Cigarettes Smokeless tobacco: Never Vaping Use Vaping status: Never Used Substance and Sexual Activity Alcohol use: Never Drug use: Never Sexual activity: Not on file Other Topics Concern Not on file Social History Narrative Not on file Social Drivers of Health Financial Resource Strain: Not on file Food Insecurity: Not on file Transportation Needs: Not on file Physical Activity: Not on file Stress: Not on file Social Connections: Not on file Intimate Partner Violence: Not on file Housing Stability: Not on file Current Medications[4] Allergies[5] Physical Exam: GEN: NAD EYES: EOMI Ears/Nose/Mouth/Throat: No obvious drainage per ears or nose CV: well perfused, pulse regular PULM: No audible wheezing or stridor, non-labored respirations ABD: soft, NT, ND : No CVA tenderness, bladder not palpable, normal appearing circumcised penis with no lesions, bilateral testes palpable without masses MS: normal ROM of UEs Skin: No obvious rashes or open sores Neuro: CN 2-12 grossly intact Psych: Answered questions appropriately with normal affect Heme/Lymph/Immunologic: No obvious bruises or sites of spontaneous bleeding Records Review: I personally reviewed I personally reviewed outside institution and internal imaging studies, imaging reports, labs, and provider notes as noted below and in the assessment and plan. Patient ID: Celestino Lundy is a 83 y.o. male. No diagnosis found. Cysto- Urology Date/Time: 08/11/2024 2:08 PM Performed by: Ben Harman MD Authorized by: Ben Harman MD Procedure discussed: discussed risks, benefits and alternatives Tank Builder Supervisor present: yes Timeout: timeout called immediately prior to procedure Prep: patient was prepped and draped in usual sterile fashion Procedure Details Cystoscope type: flexible Cystoscopy route: transurethral Irrigation used: saline Urethra Urethra: normal Prostate Prostate comment: Large partially necrotic mass extending from the bladder neck asymmetrically, possible median lobe Bladder Bladder comment: Diffusely trabeculated with multifocal diverticuli. No concerning erythematous or papillary lesions Post-Procedure Details Outcome: patient tolerated procedure well with no complications Post-procedure interventions: post-procedure instructions given Disposition: discharged home in satisfactory condition [1] Past Medical History: Diagnosis Date High cholesterol Hypertension [2] Past Surgical History: Procedure Laterality Date PROSTATE SURGERY [3] History reviewed. No pertinent family history. [4] Current Outpatient Medications Medication Sig Dispense Refill amLODIPine-benazepril (Lotrel) 10-20 MG capsule Take 1 capsule by mouth daily. atorvastatin (Lipitor) 20 MG tablet Take 1 tablet by mouth. Dutasteride-Tamsulosin HCl 0.5-0.4 MG capsule Take 1 capsule by mouth daily. ezetimibe (Zetia) 10 MG tablet Take 1 tablet by mouth. Trelegy Ellipta 200-62.5-25 MCG/ACT aerosol powder inhale one (1) puff daily Current Facility-Administered Medications Medication Dose Route Frequency Provider Last Rate Last Admin lidocaine (Uro-Jet) 2 % gel - Pyxis Override Pull [5] Allergies Allergen Reactions Penicillins Swelling Cosigned by Ben Harman MD at 08/28/2024 3:03 PM EDT Associated attestation - Ben Harman MD - 08/28/2024 3:03 PM EDT I saw and evaluated the patient with the resident/fellow. I discussed the case with the resident/fellow and agree with the findings and plan as documented. and I was present for the entirety of the procedure(s). documented in this encounter Plan of Treatment Upcoming Encounters Date Type Department Care Team (Late st Contact Info) Description 12/09/2024 1:40 PM EDT Office Visit [facility] [address] [place] [address] Carrie James PA [address] [place] [address] documented as of this encounter Procedures Procedure Name Priority Date/Time Associated Diagnosis Comments CYSTO- UROLOGY Routine 08/11/2024 2:08 PM EDT Prostate mass documented in this encounter Results * CYSTO- UROLOGY (08/11/2024 2:08 PM EDT) Narrative Ben Harman MD - 08/11/2024 2:08 PM EDT Ben Harman MD 08/28/2024 3:03 PM Cysto- Urology Date/Time: 08/11/2024 2:08 PM Performed by: Ben Harman MD Authorized by: Ben Harman MD Procedure discussed: discussed risks, benefits and alternatives Tank Builder Supervisor present: yes Timeout: timeout called immediately prior to procedure Prep: patient was prepped and draped in usual sterile fashion Procedure Details Cystoscope type: flexible Cystoscopy route: transurethral Irrigation used: saline Urethra Urethra: normal Prostate Prostate comment: Large partially necrotic mass extending from the bladder neck asymmetrically, possible median lobe Bladder Bladder comment: Diffusely trabeculated with multifocal diverticuli. No concerning erythematous or papillary lesions Post-Procedure Details Outcome: patient tolerated procedure well with no complications Post-procedure interventions: post-procedure instructions given Disposition: discharged home in satisfactory condition us Ben Harman MD UROLOGY ORDERABLES Final Re sult documented in this encounter Visit Diagnoses Diagnosis Prostate mass- Primary Unspecified disorder of prostate documented in this encounter Additional Health Concerns Assessment Noted Time A fall risk assessment has been complete d for the patient 08/11/2024 10:45 AM EDT A Body Mass Index follow-up plan has been documented for the patient 08/11/2024 2:10 PM EDT documented as of this encounter Care Teams Kiln Transfer Operator Relationship Specialty Start Date End Date Ronny Belle MD [id number] PCP - General 07/01/24 documented as of this encounter
--- OUTSIDE RECORDS SUMMARY | 2024-08-21 23:48 | XMS_ITS | Encounter Summary ---
Author Organization Healthcare Address [address] [place] [address] Care Team Providers Care Parts Fabricator Name Role Phone Ronny Belle MD Primary Care Provider [phone] Reason for Visit * Reason Comments Hematuria * Auth/Cert (Routine) Specialty Diagnoses / Procedures Referred By Contac t Referred To Contact Diagnoses Urinary retention Acute UTI (urinary tract infection) Hematuria, unspecified type Gross hematuria Ben Harman MD [address] [facility] [address] [place] [address] Phone: tel: fax: [facility]patient [address] [place] [address] Phone: tel: Referral ID Status Reason Start Date Expiration Date Visits Re quested Visits Authorized [id number] 1 1 Encounter Details Date Type Department Care Team (Late st Contact Info) Description 08/21/2024 11:48 PM EDT - 08/23/2024 4:02 PM EDT Hospital Encounter [facility] [address] [place] [address] Jay Salvador MD [address] [place] [address] Luciano Amador MD [address] [place] [address] Kyaw Malik MD [address] [place] [address] Ben Harman MD [address] [place] [id number] Hematuria, unspecified type (Primary Dx); Urinary retention; Acute UTI (urinary tract infection) Discharge Disposition: Home or Self Care Social History Tobacco Use Types Packs/Day Years Used Date Smoking Tobacco: Former Cigarettes Smokeless Tobacco: Never Alcohol Use Standard Drinks/Week Comments Never 0 (1 standard drink = 0.6 oz pur e alcohol) PHQ-2 Answer Date Recorded Patient Health Questionnaire-2 Score 0 09/02/2024 CAGE ASSESSMENT Answer Date Recorded Cage unable [...] drink first t herminio in the morning ([employer] SAL[employer]ERSON) to steady your nerves or to get [...] Sign Reading Time Taken Comments Blood Pressure 158/82 08/23/2024 11:47 AM EDT Pulse 65 08/23/2024 11:47 AM EDT Temperature 36.6 C (97.9 F) 08/23/2024 11:47 AM EDT Respiratory Rate 16 08/23/2024 7:21 AM EDT Oxygen Saturation 95% 08/23/2024 11:47 AM EDT Inhaled Oxygen Concentration - - Weight 108 kg (238 lb 1.6 oz) 08/23/2024 5:00 AM EDT Height 175.3 cm (5' 9 ) 08/22/2024 7:56 PM EDT Body Mass Index 35.16 08/22/2024 7:56 PM EDT documented in this encounter Functional Status * Calculated C-SSRS Risk Score (Lifetime/Recent) Answer [...] Micha Alcazar documented as of this encounter Discharge Instructions * Discharge Instructions* Figueroa Dobbs MD - 08/22/2024 10:59 AM EDT Medications: - You should take 500mg Tylenol every 6 hours for mild - moderate pain. You may take up to 1000mg every 6 hours but do not take more than 4000mg in a day. - You have been prescribed a short course of antibiotics. Please ensure that you complete this course. - You may resume your previous medications unless otherwise instructed. Nutrition: - You may resume your normal diet as tolerated, focusing on liquids to keep yourself hydrated. Activity: - You may resume your normal activity as tolerated. Catheter: - You have been discharged with a seals catheter. Please keep careful attention to location of seals catheter and avoid any inadvertent tugging on catheter. Catheter to remain in place until 08/25/24 at which point it can be removed at home. If seals catheter stops draining, please contact us. Potential Issues: - It is normal to have some blood in the urine after the procedure. Drink plenty of water and it should clear up. Contact the office if you are passing large clots or unable to urinate. - Call the office if you have a fever greater than 101 F - Call the office if you have severe abdominal discomfort, nausea and vomiting, or feeling unwell Follow Up: - You will be contacted by by Dr. Harman to discuss the pathology results and coordinate further follow up. Questions or Concerns and Appointments (physicians work at both clinics so confirm your location ahead of your appointment) [facility] Urology Department Clinic at [facility] [address], [address], [address] [place] [address] Clinic After Hours [facility] Urology Clinic [address] [place] [address] Clinic After Hours [facility] Multidisciplinary Urology Clinic [address] [place] [address] Clinic documented in this encounter Medications at Time of Discharge acetaminophen (Tylenol) 325 MG tablet Take 2 tablets by mouth every 6 hours as needed for headaches, pain or fever. Under [place] law, monthly prescriptions (30 days) can be refilled at 25 days and three-month prescriptions (90 days) at 80 days. Please contact the insurance company with questions if refills are denied. 100 tablet 08/23/2024 albuterol 108 (90 Base) MCG/ACT inhaler 2 puffs as needed for shortness of breath or wheezing. 09/13/2023 amLODIPine-benaz epril (Lotrel) 10-20 MG capsule Take 1 capsule by mouth daily. atorvastatin (Lipitor) 20 MG tablet Take 1 tablet by mouth. Dutasteride-Tams ulosin HCl 0.5-0.4 MG capsule Take 1 capsule by mouth daily. ezetimibe (Zetia) 10 MG tablet Take 1 tablet by mouth. Trelegy Ellipta 200-62.5-25 MCG/ACT aerosol powder inhale one (1) puff daily 07/21/2024 sulfamethoxazole -trimethoprim (Bactrim DS) 800-160 MG tabletIndication s:Acute UTI (urinary tract infection) Take 1 tablet by mouth 2 times a day for 4 days. 8 tablet 08/23/2024 5 documented as of this encounter Miscellaneous Notes * Shahzad Mills, RN - 08/23/2024 2:17 PM EDT Images from the original note were not included. [id number] Transurethral Resection of the Prostate (TURP): Home Recovery Take it easy for the first month or so while you heal after transurethral resection of the prostate. During the first few weeks, you may feel burning when you pass urine. You may also feel like you have to urinate often. These sensations will go away. If your urine becomes bright red, it means thatthe treated area is bleeding. This may happen on and off for a month or so after a TURP. If this occurs, rest and drink plenty of fluids until the bleeding stops. While you are healing To help prevent problems during the first month after your surgery, follow these tips: ?? Drink plenty of fluids. ?? Don't do strenuous exercise. ?? Don?t lift anything over 10 pounds. ?? Don't have sex. ?? Don't strain at passing stool. If you are constipated, take stool softeners or laxatives for a few days. ?? Talk with your healthcare provider about when you can return to work. ?? Ask your healthcare provider when you can start driving again. ?? Don?t sit for more than 60 minutes without getting up. ?? Check with your healthcare provider before taking vvlz-led-hmulqsf pain relievers. These includeaspirin, ibuprofen, and naproxen. Follow-up care You will visit your healthcare provider to make sure you are healing without problems. If tests were done on your prostate tissue your healthcare provider will discuss the results with you. When to call your healthcare provider Call your healthcare provider right away if any of the following occur: ?? You?re not able to urinate, or notice a decrease in urine flow ?? You have a fever of 100.4??F ( 38??C) or higher, or as directed by your healthcare provider ?? You have severe pain that is not relieved by prescription pain medicine ?? You have bleeding that doesn?t stop within 12 hours ?? You have bleeding with clots, or blood plugs up the catheter. (A little blood in the urine is normal.) ?? The catheter falls out Getting back to sex BPH and its treatments rarely cause problems with sex. Even if you have retrograde ejaculation, your erection or orgasm shouldn?t feel any different than it used to. Retrograde ejaculation can resultin infertility, as the semen will not come out of the penis. If you notice any problems with sex, talk to your healthcare provider. Help may be available. Trouble controlling your urine Some men will have trouble controlling their urine (urinary incontinence) after this surgery. This may last for a few days, weeks, or months, but it will improve with time. You may also pass your urine more often (urinary frequency), like you did before the surgery. This will also improve as you start to heal. Last Reviewed Date: 2022 00:00:00 ?? [id number] [employer]. All rights reserved. This information is not intended as a substitute for professional medical care. Always follow your healthcare professional's instructions. * [facility] - Shahzad Barrett RN - 08/23/2024 2:17 PM EDT Images from the original note were not included. 564 When your loved one has a urinary catheter What you need to know We have inserted a small tube into your loved one?s bladder. This is called a urinary catheter or ?Seals? catheter. The tube collects urine and drains it into a bag. This catheter is an important part of your loved one?s treatment. But the catheter can also be a way for infection to enter the body. The risk of infection is higher when the catheter is left in for more than three days. If your loved one?s catheter has been in place for more than two days, ask the doctor or nurse when it will be removed. How you can help prevent infection Your loved one?s health care providers will take steps to prevent infection. Here are some ways youcan help. Don?t be afraid to speak up! ?? Make sure doctors and nurses wash their hands before and after they touch the catheter. They should also wear gloves. ?? Ask the nurse if the area around the catheter was cleaned during your loved one?s daily bath. ?? Tell the nurse if there is a kink in the catheter tube. ?? Make sure the drainage bag is hanging below the level of the patient but not touching the floor. ?? Remind the nurse to empty the catheter bag before the patient is moved to other parts of the hospital. To learn about how catheters and urinary tract infections, speak with your loved one?s nurse or doctor. * Discharge Summary - Figueroa Dobbs MD - 08/23/2024 12:38 PM EDT Hospitalization Admit Date/Time: 08/21/2024 11:48 PM Admitting Attending: Ben Harman Discharge Date: 08/23/2024 Discharge Attending Physician: Ben Harman MD PCP name and Address: Ronny Belle MD [address] [place] [address] Referring provider name and address: No referring provider defined for this encounter. Chief Concern, Brief History of Present Illness, and Hospital Course Celestino Lundy is a 83 y.o. male with PMH of hypertension and hyperlipidemia who presented to on 08/21/24 with gross hematuria and passage of clots. Patient had elevated postvoid residual at presentation and urinalysis with blood and leukocytes, positive bacteria, nitrite positive concerning for UTI.Bedside cystoscopy was performed to place a 22 Fr Roz 3-way catheter over a wire into the patient's bladder. He was started on CBI after irrigation of clots from the bladder. He continued to have significant hematuria and elected to proceed to the OR for further evaluation and management. Patient was taken to the operating on 08/22/2024 for Transurethral resection of prostate. The patient tolerated the procedure well and was subsequently extubated and transferred to the PACU/ for recovery. After recovery, the patient was transferred to the floor. The patient's hospital course was uncomplicated and it was felt that the patient had reached maximal benefit from hospitalization. They were deemed appropriate for discharge to home. On the day of discharge the patient's pain was controlled on oral medications, they were ambulating, passing flatus, and tolerating oral intake. The patient was discharged on 08/23/24 to home and will be called by Dr. Harman to discuss his pathology and coordinate follow up. The patient will remove his seals catheter at home on Sunday08/25/24. Surgeries and Procedures Procedures performed in this encounter Procedures Case Request Operating Room: TURBT, TURP, USING BIPOLAR CAUTERY PROBE, WITH SALINE IRRIGATION TURBT, TURP, USING BIPOLAR CAUTERY PROBE, WITH SALINE IRRIGATION (N/A) Medication List .. acetaminophen 325 MG tablet Commonly known as: Tylenol Take 2 tablets by mouth every 6 hours as needed for headaches, pain or fever. Under [place] law, monthly prescriptions (30 days) can be refilled at 25 days and three-month prescriptions (90 days) at80 days. Please contact the insurance company with questions if refills are denied. amLODIPine-benazepril 10-20 MG capsule Commonly known as: Lotrel Take 1 capsule by mouth daily. atorvastatin 20 MG tablet Commonly known as: Lipitor Take 1 tablet by mouth. Dutasteride-Tamsulosin HCl 0.5-0.4 MG capsule Take 1 capsule by mouth daily. ezetimibe 10 MG tablet Commonly known as: Zetia Take 1 tablet by mouth. sulfamethoxazole-trimethoprim 800-160 MG tablet Commonly known as: Bactrim DS Take 1 tablet by mouth 2 times a day for 4 days. Trelegy Ellipta 200-62.5-25 MCG/ACT aerosol powder Generic drug: Zddbknhuydz-Rprqorgkq-Agxdsy inhale one (1) puff daily Where to Get Your Medications These medications were sent to [facility] - [place], [place] - [address] [facility] [address] acetaminophen 325 MG tablet sulfamethoxazole-trimethoprim 800-160 MG tablet Discharge Diagnosis Medical Problems Active and Resolved Hospital Problems Hospital Hematuria Urinary retention * (Principal) Gross hematuria Post Discharge Instructions Medications: - You should take 500mg Tylenol every 6 hours for mild - moderate pain. You may take up to 1000mg every 6 hours but do not take more than 4000mg in a day. - You have been prescribed a short course of antibiotics. Please ensure that you complete this course. - You may resume your previous medications unless otherwise instructed. Nutrition: - You may resume your normal diet as tolerated, focusing on liquids to keep yourself hydrated. Activity: - You may resume your normal activity as tolerated. Catheter: - You have been discharged with a seals catheter. Please keep careful attention to location of seals catheter and avoid any inadvertent tugging on catheter. Catheter to remain in place until 08/25/24 at which point it can be removed at home. If seals catheter stops draining, please contact us. Potential Issues: - It is normal to have some blood in the urine after the procedure. Drink plenty of water and it should clear up. Contact the office if you are passing large clots or unable to urinate. - Call the office if you have a fever greater than 101 F - Call the office if you have severe abdominal discomfort, nausea and vomiting, or feeling unwell Follow Up: - You will be contacted by by Dr. Harman to discuss the pathology results and coordinate further follow up. Questions or Concerns and Appointments (physicians work at both clinics so confirm your location ahead of your appointment) [facility] Urology Department Clinic at [facility] [address], [facility] [place] [address] Clinic After Hours [facility] Building Urology Clinic [address] [facility] [place] [address] Clinic After Hours [facility] Multidisciplinary Urology Clinic [address] [facility] 1st [place] [address] Clinic Outpatient Follow-Up Future Appointments Date Time Provider Department Center 08/27/2024 11:00 AM PRE-ADMISS[facility] TESTING - [facility] Test Results Pending At Discharge Pending Labs Order Current Status Surgical Pathology Exam In process Pertinent Physical Exam At Time of Discharge GEN: NAD HEENT: NCAT, EOMI RESP: Equal bilateral chest rise, normal work of breathing CV: RRR, appears well perfused ABD: Soft, nontender, nondistended : seals catheter in place, draining pink tinged urine EXT: No gross deformities MSK: Full ROM in BL UE NEURO: No focal deficits, AOx3 PSYCH: Normal mood and affect Discharge Disposition/Condition Disposition: Home Condition: Stable (s/sx potential problems absent or manageable) I spent >30 minutes of patient care and instruction time in preparation for this discharge. Cosigned by Hugo León MD at 08/24/2024 9:50 AM EDT * Hospital Course - Figueroa Dobbs MD - 08/23/2024 12:15 PM EDT Celestino Lundy is a 83 y.o. male with PMH of hypertension and hyperlipidemia who presented to on 08/21/24 with gross hematuria and passage of clots. Patient had elevated postvoid residual at presentation and urinalysis with blood and leukocytes, positive bacteria, nitrite positive concerning for UTI.Bedside cystoscopy was performed to place a 22 Fr Roz 3-way catheter over a wire into the patient's bladder. He was started on CBI after irrigation of clots from the bladder. He continued to have significant hematuria and elected to proceed to the OR for further evaluation and management. Patient was taken to the operating on 08/22/2024 for Transurethral resection of prostate. The patient tolerated the procedure well and was subsequently extubated and transferred to the PACU/ for recovery. After recovery, the patient was transferred to the floor. The patient's hospital course was uncomplicated and it was felt that the patient had reached maximal benefit from hospitalization. They were deemed appropriate for discharge to home. On the day of discharge the patient's pain was controlled on oral medications, they were ambulating, passing flatus, and tolerating oral intake. The patient was discharged on 08/23/24 to home and will be called by Dr. Harman to discuss his pathology and coordinate follow up. The patient will remove his seals catheter at home on Sunday08/25/24. * Care Plan - Micha Alcazar - 08/23/2024 5:47 AM EDT Problem: Adult Inpatient Plan of Care Goal: Plan of Care Review Outcome: Ongoing, Progressing Flowsheets (Taken 08/23/2024 0546) Progress: improving Outcome Evaluation: Participated in ADLs and walked Plan of Care Reviewed With: patient Goal: Patient-Specific Goal (Individualized) Outcome: Ongoing, Progressing Goal: Absence of Hospital-Acquired Illness or Injury Outcome: Ongoing, Progressing Goal: Optimal Comfort and Wellbeing Outcome: Ongoing, Progressing Goal: Readiness for Transition of Care Outcome: Ongoing, Progressing Problem: Infection Goal: Absence of Infection Signs and Symptoms Outcome: Ongoing, Progressing * Anesthesia PACU Signout - Naida Zacarias DO - 08/22/2024 3:17 PM EDT Patient: Celestino Lundy Anesthesia Type: general Vitals Value Taken Time BP 149/79 08/22/24 15:00 Temp 36.9 ??C (98.4 ??F) 08/22/24 14:00 Pulse 75 08/22/24 15:16 Resp 18 08/22/24 15:16 SpO2 94 % 08/22/24 15:16 Vitals shown include unfiled device data. Anesthesia PACU Signout Patient location during evaluation: PACU Patient participation: complete - patient participated Level of consciousness: baseline and awake Pain management: adequate (pain score 0-3) Airway patency: natural airway Hydration status: stable PONV: none Cardiovascular status: hemodynamically stable and blood pressure returned to baseline Respiratory status: spontaneous ventilation, unassisted, nonlabored ventilation and nasal cannula (2L) Comments: Disposition: extended recovery in the PACU Cosigned by Lang Gore MD at 08/22/2024 6:29 PM EDT Associated attestation - Lang Gore MD - 08/22/2024 6:29 PM EDT Agree with above assessment and evaluation from resident/REAL ESTATE RENTAL AGENT. * Op Note - Ben Harman MD - 08/22/2024 12:36 PM EDT PATIENT NAME: Celestino Lundy : 1940 DATE OF SURGERY: 08/22/24 PROCEDURES PERFORMED: Transurethral resection of prostate PREOPERATIVE DIAGNOSIS: BPH and gross hematuria POSTOPERATIVE DIAGNOSIS: Same SURGEON: Ben Harman MD URBAN PLANNER SURGEON(S): Luciano Patricia DO INTRAOPERATIVE FINDINGS: 1) Cystoscopy revealed bleeding from the prostatic urethra with a small posterior mucosal tear, as well as massive prostatic regrowth. Bilateral ureteral orifices in orthotopic position 2) Prostate had massive regrowth with several large obstructing nodules. These areas were resected from the bladder neck to just proximal to the verumontanum from the 4 o'clock position to the 8 o'clock position. 3) Appropriate hemostasis achieved at the conclusion of the case. 4) Bilateral ureteral orifices and verumontanum were noted throughout case and spared INDICATIONS: Celestino Lundy is a 83 y.o. male with pmhx HTN and HLD who presents to ED with gross hematuria and passage of clots. He has a necrotic bladder neck mass seen on cystoscopy 08/11 and is scheduled for TURP on 09/[address] Harman. We initially placed a hematuria catheter and irrigated out his clots. He continued to have significant hematuria, so after discussion he elected to proceed with TURP. ANESTHESIA: General COMPLICATIONS: None DRAINS: 24 Fr 2-way seals catheter SPECIMEN: Prostate chips EBL: 100cc PROCEDURE IN DETAIL: After informed consent was obtained, the patient was brought into the surgical suite. The patient was placed in supine position and general anesthesia was administered. The patient was then placed inthe dorsal lithotomy position. They were then prepped and draped in the usual and sterile fashion. A preoperative timeout was performed verifying the correct patient, procedure, and administration ofpreoperative antibiotics prior to the start of the case. The 26 O[place]i resectoscope was inserted into the patient's bladder per urethra. Cystoscopy revealeda mildly trabeculated bladder with some clots in the bladder. Clots were evacuated with a Tumey syringe. There was massive regrowth of his prostate with visual obstruction. Bilateral ureteral orifices were noted in their correct orthotopic position. There were no bladder masses. A thick bipolar prostate loop was then attached to the Aprmar working element. Resection began atthe median lobe. This was taken down from the bladder neck to level just proximal to the verumontanum. We resected from the 8 o'clock position to the 4 o'clock position from the bladder neck to the level just proximal to the verumontanum. The prostate chips were then evacuated using a UroVac. Electrocautery was used to fulgurate any residual areas of bleeding. Appropriate hemostasis was noted. The bladder neck was inspected from the level of the verumontanum and was noted to be widely patent. The bilateral ureteral orifices and verumontanum were noted at the conclusion of the case to be spared. A [address] catheter was then advanced in the patient's bladder. Return of light pink effluent confirmed appropriate position. 30 cc of sterile water was used to inflate the balloon and the catheter was connected to a drainage bag and secured to the patient's thigh. The patient tolerated the procedure well. POSTOPERATIVE PLAN: - The patient will be taken to PACU for recovery and be admitted to the urology service overnight - Tentative plan for discharge tomorrow if urine continues to drain well - Patient will remove his catheter at home on Sunday, 08/25 Kvng Patricia DO PGY-3, Department of Urology Pager: [phone] * Progress Notes - Anthony Mohr DO - 08/22/2024 11:22 AM EDT Images from the original note were not included. ED TRANSFER OF CARE NOTE Due to continued bleeding despite continuous bladder irrigation, patient will be admitted to Urology to go to the OR for clot evac, TURP, and TURBT. Patient has remained afebrile, hemodynamically stable, in no acute distress. Ultimately, this patient Was admitted (Admission) The primary encounter diagnosis was Hematuria, unspecified type. Diagnoses of Urinary retention and Acute UTI (urinary tract infection) were also pertinent to this visit.. Patient believed to require admission for the listed diagnoses. The urology service was consulted for admission andwas agreeable to admit to Acute Floor (Med/Surg). ED Prescriptions Medication Sig Dispense Start Date End Date Auth. Provider cefpodoxime (Vantin) 200 MG tablet Take 1 tablet by mouth 2 times a day for 10 days. 20 tablet 08/22/2024 09/01/2024 Anthony Mohr DO Discharge Instructions Please take cefpodoxime as instructed. Disposition Admit Provider Care Team: YOVANNY HARDIN ADULT [[id number]] Are they the primary team?: Yes [1] - Anthony Mohr DO Cosigned by Kyaw Malik MD at 08/22/2024 1:43 PM EDT Associated attestation - Kyaw Malik MD - 08/22/2024 1:43 PM EDT I saw and evaluated the patient with the resident/fellow. I discussed the case with the resident/fellow and agree with the findings and plan as documented. * Significant Event - Luciano Patricia DO - 08/22/2024 11:20 AM EDT Patient continues to have significant hematuria. After discussion of his options, he agree to proceed to OR today for TURBT and TURP. - No other significant change in HPI - Risks and benefits were discussed with the patient including but not limited to bleeding, infection, damage to surrounding structures, need for further procedures, anesthesia risks, blood clot, embolism, stroke, and heart attack. - Patient verbally expressed agreement. E-consent obtained and placed in the patient's chart - NPO since midnight Kvng Patricia DO PGY-3, Department of Urology Pager: [phone] * H&P - FaniAnthony, DO - 08/22/2024 8:05 AM EDT Images from the original note were not included. Chief Concern & History Of Present Illness Celestino Lundy is a 83 y.o. male presenting with hematuria. 83 y.o. male with pmhx HTN and HLD who presented to ED with gross hematuria and passage of clots. He states hematuria started yesterday morning and began passing a couple quarter sized clots. He was worried because blood was not clearing upso he came to ED to be evaluated. He is still urinating. Bladder scan initially in 600s mL and PVR was 365mL. He is not currently uncomfortable. He denies any fevers, chills, nausea, or vomiting. He was recently seen in clinic with Dr. 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 He is scheduled for a TURP on 09/12 with urology. Urology was consulted in the emergency department. No acute intervention on their end. They are recommending antibiotics for presumed UTI. Patientreceived ceftriaxone in the emergency department. With Urology at bedside, they introduced a 17 fr cystoscope into the patient's urethral meatus. There was significant blood in the urethra. They wereable to negotiate the scope into the patient's bladder where some clots were noted. They advanced asensor wire into the bladder and advanced a 22 [place] Roz three-way catheter over the wire with return of bloody urine. They irrigated with 1.5 L of sterile water with return of approximately 150 cc of clot. At the conclusion of irrigation, the patient's urine was clear. He was started on a slowdrip CBI. ED observation consulted. The plan will be to wean the CBI as able. Anticipated discharge today with antibiotics. Past Medical History He has a past medical history of High cholesterol and Hypertension. Surgical History He has a past surgical history that includes Prostate surgery. Family History Family History[1] Social History He reports that he has quit smoking. His smoking use included cigarettes. He has never used smokeless tobacco. He reports that he does not drink alcohol and does not use drugs. Occupational History Occupational history[2] Employer: No address on file. Travel History Relevant International Travel History: Travel Screening Question Response Have you been in contact with someone who was sick? No / Unsure Do you have any of the following new or worsening symptoms? None of these Have you traveled internationally or domestically in the last month? No Travel History Travel since 07/23/24 No documented travel since 07/23/24 VACCINE/DOSE Flu Tetanus Pneumovax Shingles Allergies Penicillins Medications Current Medications[3] Review of Systems Physical Exam Constitutional: General: He is not in acute distress. HENT: Head: Normocephalic. Comments: No facial swelling Mouth/Throat: Mouth: Mucous membranes are moist. Pharynx: Oropharynx is clear. Cardiovascular: Rate and Rhythm: Normal rate. Pulmonary: Effort: Pulmonary effort is normal. No respiratory distress. Breath sounds: Normal air entry. Comments: Speaking full sentences. Symmetric chest rise Abdominal: General: There is no distension. Genitourinary: Comments: CBI in place. Gross hematuria noted. Musculoskeletal: General: No deformity. Normal range of motion. Cervical back: Normal range of motion. Comments: Atraumatic, moves all extremities spontaneously Neurological: Mental Status: He is alert. Mental status is at baseline. Comments: Awake Psychiatric: Behavior: Behavior normal. Last Recorded Vitals Blood pressure 134/69, pulse 71, temperature 36.6 ??C (97.9 ??F), temperature source Oral, resp. rate 16, weight 108 kg (238 lb), SpO2 93%. Relevant Results UA shows large amounts of blood, large amounts of leukocytes, positive nitrites, and bacteria CT abdomen IMPRESSION: 1. Vascular structures are unremarkable. 2. Increased clot burden within the bladder. No evidence of active arterial extravasation. 3. Severe prostatomegaly. Cystoscopy could be considered for further evaluation for known necrotic bladder neck mass. Assessment/Plan Active Problems: There are no active Hospital Problems. Gross hematuria, UTI -received ceftriaxone, send home on oral antibiotics -wean CBI as able, urology following -likely discharge today pending urology recommendations Medically Ready for Discharge:Anticipated Today [1] No family history on file. [2] [3] No current facility-administered medications for this encounter. Current Outpatient Medications Medication Sig Dispense Refill amLODIPine-benazepril (Lotrel) 10-20 MG capsule Take 1 capsule by mouth daily. atorvastatin (Lipitor) 20 MG tablet Take 1 tablet by mouth. Dutasteride-Tamsulosin HCl 0.5-0.4 MG capsule Take 1 capsule by mouth daily. ezetimibe (Zetia) 10 MG tablet Take 1 tablet by mouth. Trelegy Ellipta 200-62.5-25 MCG/ACT aerosol powder inhale one (1) puff daily Cosigned by Kyaw Malik MD at 08/22/2024 10:09 AM EDT Associated attestation - Kyaw Malik MD - 08/22/2024 10:09 AM EDT I saw and evaluated the patient with the resident/fellow. I discussed the case with the resident/fellow and agree with the findings and plan as documented. I personally spent a total of 31 minutes on this encounter. This time includes face to face with patient, counseling, and discussion and/or coordination of care. * Significant Event - Luciano Patricia DO - 08/22/2024 7:43 AM EDT At bedside, after consent was obtained, I prepped and draped the patient in the usual sterile fashion. A 17 fr cystoscope was introduced into the patient's urethral meatus. There was significant blood in the urethra. I was able to negotiate the scope into the patient's bladder where some clots werenoted. I advanced a sensor wire into the bladder and advanced a 22 [place] Roz three-way catheter over the wire with return of bloody urine. I irrigated with 1.5 L of sterile water with return of approximately 150 cc of clot. At the conclusion of irrigation, the patient's urine was clear. He was started on a slow drip CBI. Recommendations: - Wean CBI as able - Observe in the ED for a few hours, likely discharge later today Kvng Patricia DO PGY-3, Department of Urology Pager: [phone] * ED Notes - Rodriguez Ferrer - 08/22/2024 4:42 AM EDT Assumed care of pt at this time. Pt is AAOX4, on CCM, VS stable and WNL. Pt denies pain at this time. Urinal placed at bedside, explained plan of care. All questions answered. Side rails up x2, call light within reach. No needs expressed/identified at this time. Family member at [facility]. Rodriguez Ferrer 08/22/24 0452 * ED Notes - Maria Victoria Wong MD - 08/22/2024 4:11 AM EDT 49/urology Maria Victoria Wong MD Resident 08/22/24 0411 * Consults - Tre Maldonado MD - 08/22/2024 2:55 AM EDTAssociated Order(s): Consult to Urology Consult to Urology Consult performed by: Tre Maldonado MD Consult ordered by: Jay Salvador MD Reason for consult: hematuria concern for clot retention [facility] Urology Consult Note 08/22/24 Service Requesting Consultation: Emergency Medicine CC: hematuria concern for clot retention HPI: Celestino Lundy is a 83 y.o. male with pmhx HTN and HLD who presents to ED with gross hematuria and passage of clots. He states hematuria started yesterday morning and began passing a couple quarter sized clots. He was worried because blood was not clearing up so he came to ED to be evaluated. He is still urinating. Bladder scan initially in 600s mL and PVR was 365mL. HE is not currently uncomfortable. He denies any fevers, chills, nausea, or vomiting. He was recently seen in clinic with Dr. 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 He is scheduled for a TURP on 09/12. Past Medical History: reviewed Medical History[1] Past Surgical History: reviewed Surgical History[2] Family History: reviewed Family History[3] Social History: reviewed Social History[4] Outpatient Medications: Current Outpatient Medications Medication Instructions amLODIPine-benazepril (Lotrel) 10-20 MG capsule 1 capsule, Daily atorvastatin (LIPITOR) 20 mg Dutasteride-Tamsulosin HCl 0.5-0.4 MG capsule 1 capsule, Daily ezetimibe (ZETIA) 10 mg Trelegy Ellipta 200-62.5-25 MCG/ACT aerosol powder inhale one (1) puff daily ROS: Review of Systems All other systems reviewed and are negative. PHYSICAL EXAM: Temp: [36.4 ??C (97.5 ??F)-36.6 ??C (97.8 ??F)] 36.6 ??C (97.8 ??F) Heart Rate: [67-77] 67 Resp: [18-19] 19 BP: (130-153)/(64-69) 130/64 SpO2: [88 %-94 %] 94 % GEN: NAD HEENT: NCAT, EOMI RESP: Equal bilateral chest rise, normal work of breathing, NC in place CV: Regular rate, appears well perfused ABD: Nondistended : no suprapubic tenderness to palpation. Bladder not readily palpable but patient has large body habitus. EXT: No gross deformities MSK: Full ROM in BL UE NEURO: No focal deficits, alert and oriented PSYCH: Normal mood and affect LABS: Results from last 7 days Lab Units 08/22/24 0126 WBC 10*3/uL 9.33 HEMOGLOBIN g/dL 12.9* HEMATOCRIT % 40.1 PLATELETS 10*3/uL 352 Results from last 7 days Lab Units 08/22/24 0126 SODIUM mmol/L 142 POTASSIUM mmol/L 4.2 CHLORIDE mmol/L 107 CO2 mmol/L 21* BUN mg/dL 18 CREATININE mg/dL 1.27* EGFR mL/min/1.73m*2 56.1 GLUCOSE mg/dL 93 CALCIUM mg/dL 9.2 Results from last 7 days Lab Units 08/22/24 0141 COLOR UA Red SPEC GRAV U 1.015 PH UA 6.5 PROTEIN UR mg/dL >=300* GLUCOSE UA mg/dL 100* KETONES UA mg/dL 15* LEUKOCYTES UA Large* NITRITE UA Positive* RBC, URINE /HPF >50* WBC, URINE /HPF Unable to estimate due to obscuring RBC's (UNERBC) SQUAMOUS /HPF Unable to estimate due to obscuring RBC's (UNERBC) BACTERIA UR HPF Present Imaging: I have personally reviewed the imaging below: No new relevant imaging for review Hospital Problem List: Active Problems: There are no active Hospital Problems. Assessment: Celestino Lundy is a 83 y.o. male with pmhx HTN and HLD who presents to ED with gross hematuria and passage of clots. He has a necrotic bladder neck mass seen on cystoscopy 08/11 and is scheduled for TURP on 09/[address] Harman. He is able to void and bladder scan dropped to 365mL from 600s. He is AF and HDS. WBC stable 9.3. Hgb stable 12.9. creatinine 1.27, unknown baseline. UA with glucose, bilirubin, ketones, protein, blood, leukocytes, Bacteria present and nitrite positive confounded by hematuria but concern for possible UTI. I had a discussion with the patient about placing a catheter drain bladder and irrigate clot. He states he feels ok right now and would like ot avoid a catheter. I offered observation with serial PVRs to ensure he is emptying bladder. However, ED provider did not feel this was appropriate and suggested patient be discharged with return precautions rather than observation. As a compromise they will be obtaining a CTA a/p and repeat PVR with next void.If PVR remains elevated plan to anchor seals. Plan: - no acute urologic intervention - f/u CT scan - f/u PVR - recommend antibiotics for presumed UTI - encourage hydration - urology available for questions and concerns. Please notify urology supervisor train operations of PVRs. Tre Maldonado MD [1] Past Medical History: Diagnosis Date High cholesterol Hypertension [2] Past Surgical History: Procedure Laterality Date PROSTATE SURGERY [3] No family history on file. [4] Social History Tobacco Use Smoking status: Former Types: Cigarettes Smokeless tobacco: Never Vaping Use Vaping status: Never Used Substance Use Topics Alcohol use: Never Drug use: Never Cosigned by Belen Kaplan MD at 08/22/2024 1:48 PM EDT * ED Provider Notes - Maria Victoria Wong MD - 08/21/2024 11:27 PM EDT - HPI Chief Complaint Patient presents with Hematuria HPI Patient is an 83-year-old with past medical history significant for necrotizing bladder tumor presents to the emergency department with difficulty urinating. Patient developed large red clots today with worsening difficulty peeing. Is scheduled to have a TURP in September. No fevers or chills. No discomfort of the abdomen. No blood thinners Patient History Medical History[1] Surgical History[2] Family History[3] Social History[4] Allergies: Allergies[5] Physical Exam ED Triage Vitals [08/21/24 2332] Temp Heart Rate Resp BP 36.4 ??C (97.5 ??F) 77 18 (!) 153/69 SpO2 Temp Source Heart Rate Source Patient Position (!) 88 % Oral Monitor Sitting BP Location FiO2 (%) Right arm -- Physical Exam Vitals and nursing note reviewed. Constitutional: General: He is not in acute distress. HENT: Head: Normocephalic. Right Ear: External ear normal. Left Ear: External ear normal. Nose: Nose normal. Mouth/Throat: Mouth: Mucous membranes are moist. Eyes: Extraocular Movements: Extraocular movements intact. Conjunctiva/sclera: Conjunctivae normal. Cardiovascular: Rate and Rhythm: Normal rate and regular rhythm. Pulses: Normal pulses. Pulmonary: Effort: Pulmonary effort is normal. No respiratory distress. Abdominal: General: Abdomen is flat. There is no distension. Tenderness: There is abdominal tenderness (suprapubic). There is no right CVA tenderness or left CVA tenderness. Musculoskeletal: General: No deformity. Cervical back: Normal range of motion. Skin: General: Skin is warm and dry. Capillary Refill: Capillary refill takes less than 2 seconds. Coloration: Skin is not jaundiced or pale. Neurological: General: No focal deficit present. Mental Status: He is alert and oriented to person, place, and time. EASI ?? Total Score: 0 Maria Isabel Coma Scale Score: 15 ED Course & MDM - Assessment: 83 y.o. male presents to ED with complaint of hematuria. It should be noted that the chronic conditions includes bladder mass, which currently is not at goal therapy. This complicates the clinical picture because it Comorbidities: may be exacerbating symptoms Upon presentation patient is hemodynamically stable saturating appropriately on room air afebrile in no acute distress. Differential Diagnosis: Malignancy bladder outlet obstruction acute urinary retention hydronephrosis pyelonephritis urinary tract infection urolithiasis In order to fully explore the differential diagnosis the following treatments and tests were ordered: ED Medication Administration from 08/21/2024 2327 to 08/22/2024 0417 Date/Time Order Dose Route Action 08/22/2024 0258 EDT cefTRIAXone (Rocephin) 2 g in sodium chloride 0.9% 100 mL IVPB (vial adapter required) 2 g Intravenous New Bag 08/22/2024 0407 EDT cefTRIAXone (Rocephin) 2 g in sodium chloride 0.9% 100 mL IVPB (vial adapter required) 0 g Intravenous Stopped 08/22/2024 0410 EDT lactated Ringer's infusion 1,000 mL 1,000 mL Intravenous New Bag All Other Orders Ordered Status Ordering Provider 08/22/24 0301 Urine Culture Once In process MARIA VICTORIA WONG 08/22/24 0301 SEND SAURAV MESSAGE Once Final result MARIA VICTORIA WONG 08/22/24 0220 Consult to Urology Once Specialty: Urology Provider: (Not yet assigned) Completed MARIA VICTORIA WONG 08/22/24 0202 Urinalysis Microscopic Examination Once Final result MARIA VICTORIA WONG 08/22/24 011 Hepatitis C Antibody - ED Once Final result MARIA VICTORIA WONG 08/22/24 011 ED Protocol - HIV 1/2 Antibody/Antigen Screen Once Final result MARIA VICTORIA WONG 08/22/24 011 ED HIV 1/2 Antibody/Antigen Screen w/Reflex to HIV 1/2 Differentiation PROCEDURE ONCE Final result MARIA VICTORIA WONG 08/22/24112 CBC w/diff STAT Final result MARIA VICTORIA WONG 08/22/24112 CMP STAT Final result MARIA VICTORIA WONG 08/22/24112 Type and screen Start now Final result MARIA VICTORIA WONG 08/22/24 011 PT-INR STAT Final result MARIA VICTORIA WONG 08/22/24 011 Urinalysis with reflex microscopic AND reflex culture (IF UTI SUSPECTED) STAT Final result MARIA VICTORIA WONG 08/22/24 011 Bladder scan Once Comments: Post void residual Acknowledged MARIA VICTORIA WONG 08/22/[address] Angio Abdomen Pelvis Once Acknowledged MARIA VICTORIA WONG 08/22/24 011 Urinalysis with reflex microscopic (Culture NOT Included) PROCEDURE ONCE Final result MARIA VICTORIA WONG 08/22/24 011 Urine Fischer Panel PROCEDURE ONCE Final result MARIA VICTORIA WONG ED Course as of 08/22/24 0652 SunAugust 22, 2024 0419 Nitrite, Urine(!): Positive We will treat with ceftriaxone for urinary tract infection no flank pain [ROBIN] 0420 I had a interactive conversation with Urology with recommendations pending at transfer of care[ROBIN] 0555 CT Angio Abdomen Pelvis Significant clot burden within the bladder [ROBIN] ED Course User Index [ROBIN] Maria Victoria Wong MD Clinical Impressions as of 08/22/24 0652 Hematuria, unspecified type Social Determinates of Health Risks (including Economic Stability, Education and level of understanding, Healthcare access and quality and concerning social factors): Social factors impacting patient's psychosocial well-being Ultimately, this patient was was signed out to the [facility] (Signed Out) Patient care assumed by [facility] [facility], Martínez, at shift change, tentative plan at the time of sign-out was fu Urology recs. ED Prescriptions None - [1] Past Medical History: Diagnosis Date High cholesterol Hypertension [2] Past Surgical History: Procedure Laterality Date PROSTATE SURGERY [3] No family history on file. [4] Tobacco Use Smoking status: Former Types: Cigarettes Smokeless tobacco: Never Vaping Use Vaping status: Never Used Substance Use Topics Alcohol use: Never Drug use: Never [5] Allergies Allergen Reactions Penicillins Swelling Maria Victoria Wong MD Resident 08/22/24 06 Cosigned by Jay Salvador MD at 08/26/2024 11:21 PM EDT Associated attestation - Jay Salvador MD - 08/26/2024 11:21 PM EDT I saw and evaluated the patient with the resident/fellow. I discussed the case with the resident/fellow and agree with the findings and plan as documented. * ED Triage Notes - Shahnaz Rodney RN - 08/21/2024 11:27 PM EDT Pt c/o hematuria x 1 day. Pt states he is scheduled for prostate surgery in September * Progress Notes - Chris Soliz MD - 08/21/2024 11:27 PM EDT I received sign-out and accepted care of this patient from the departing resident physician. Pleasesee the primary providers??? note for complete elements of the history, physical exam, and ED course. Illness Severity: Stable Patient Summary: Celestino Lundy is a 83 y.o. male with a PMHx of Medical History[1] presented to the ED with Hematuria. Most recent vital signs: Visit Vitals BP 134/69 (BP Location: Left arm, Patient Position: Lying) Pulse 71 Temp 36.6 ??C (97.9 ??F) (Oral) Resp 16 Wt 108 kg (238 lb) SpO2 93% BMI 34.15 kg/m?? Smoking Status Former BSA 2.31 m?? Room/Bed: 49/49 Brief Hx: Hx bladder outlet tumor. UTI. Urinary retention (275 ml) and gross hematuria. MDM: Approximately 6:45 AM, I assumed care of this patient from the previous resident on service. Upon my assumption of care patient is stable, workup was reviewed by me and thus far remarkable as noted in ED course below. Urology eval/recs was/were pending. ED Course as of 08/22/24 0805 SunAugust 22, 2024 0419 Nitrite, Urine(!): Positive We will treat with ceftriaxone for urinary tract infection no flank pain [ROBIN] 0420 I had a interactive conversation with Urology with recommendations pending at transfer of care[ROBIN] 0555 CT Angio Abdomen Pelvis Significant clot burden within the bladder [ROBIN] 0804 Urology stated that they placed a Seals catheter and we would like to re- evaluate the patient after the 1st surgical case this morning. Stated that he would be appropriate for discharge with scheduled TURP after a recheck. Patient was ultimately placed in ED observation status pending recheck by Urology [AC] ED Course User Index [AC] Chris Soliz MD [ROBIN] Maria Victoria Wong MD Clinical Impressions as of 08/22/24 0805 Hematuria, unspecified type Urinary retention Placed in ED OBS. The following procedures were performed: Procedures The following providers were documented as assigned to this patient during this visit: Sincerely, Jay Salvador MD Dejohn, Jodi M, MD Chavez, Andrew R, MD Sign Off Checklist Clinical Impression: Complete ED Disposition: ED OBS [1] Past Medical History: Diagnosis Date ??? High cholesterol ??? Hypertension Cosigned by Luciano Amador MD at 08/22/2024 8:49 AM EDT Associated attestation - Luciano Amador MD - 08/22/2024 8:49 AM EDT I saw and evaluated the patient with the resident/fellow. I discussed the case with the resident/fellow and agree with the findings and plan as documented. documented in this encounter Plan of Treatment Upcoming Encounters Date Type Department Care Team (Late st Contact Info) Description 12/09/2024 1:40 PM EDT Office Visit [facility] [address] [place] [address] Carrie James PA [address] [place] [address] documented as of this encounter Procedures Procedure Name Priority Date/Time Associated Diagnosis Comments CBC W/O DIFFERENTIAL Pending Discharge 08/23/2024 4:12 AM EDT BASIC METABOLIC PANEL, PLASMA Pending Discharge 08/23/2024 4:12 AM EDT SURGICAL PATHOLOGY EXAM Routine 08/22/2024 1:41 PM EDT Hematuria, unspecified type Urinary retention TURBT, USING BIPOLAR CAUTERY PROBE, WITH SALINE IRRIGATION 08/22/2024 11:58 AM EDT Hematuria, unspecified type Urinary retention CT ANGIO ABDOMEN PELVIS STAT 08/22/2024 5:12 AM EDT SEND SAURAV MESSAGE STAT 08/22/2024 1: 41 AM EDT URINALYSIS WITH REFLEX MICROSCOPIC AND CULTURE STAT 08/22/2024 1:41 AM EDT URINE FISCHER PANEL STAT 08/22/2024 1:41 AM EDT URINALYSIS MICROSCOPIC FOR UA REFLEX STAT 08/22/2024 1:41 AM EDT URINALYSIS WITH REFLEX MICROSCOPIC STAT 08/22/2024 1:41 AM EDT URINE CULTURE STAT 08/22/2024 1:41 AM EDT ED HIV 1/2 ANTIBODY/ANTIGEN SCREEN WITH REFLEX TO HIV I/II DIFFERENTIATION STAT 08/22/2024 1:26 AM EDT ED PROTOCOL HIV 1/2 ANTIBODY/ANTIGEN SCREEN W/REFLEX TO HIV 1/2 ANTIBODY DIFFERENTIATION STAT 08/22/2024 1:26 AM EDT HEPATITIS C ANTIBODY - ED W/REFLEX TO HCV QUANT PCR STAT 08/22/2024 1:26 AM EDT PROTHROMBIN TIME(PT) / INR STAT 08/22/2024 1:26 AM EDT CBC WITH AUTO DIFFERENTIAL STAT 08/22/2024 1:26 AM EDT TYPE AND SCREEN STAT 08/22/2024 1:26 AM EDT COMPREHENSIVE METABOLIC PANEL, PLASMA STAT 08/22/2024 1:26 AM EDT documented in this encounter Results * (ABNORMAL) CBC W/O Differential (08/23/2024 4:12 AM EDT) WBC Count 11.72(H) 3.70 - 10.30 10*3/uL LAB HEMATOLOGY METHOD 08/23/2024 4:[address] [facility] RBC Count 4.13(L) 4.60 - 6.10 10*6/uL LAB HEMATOLOGY METHOD 08/23/2024 4:[address] [facility] HGB 12.1(L) 13.7 - 17.5 g/dL LAB HEMATOLOGY METHOD 08/23/2024 4:[address] [facility] HCT 37.0(L) 40.0 - 51.0 % LAB HEMATOLOGY METHOD 08/23/2024 4:[address] [facility] Platelet Count 365 155 - 369 10*3/uL LAB HEMATOLOGY METHOD 08/23/2024 4:[address] [facility] MCV 90 79 - 98 fL LAB HEMATOLOGY METHOD 08/23/2024 4:[address] [facility] MCH 29.3 26.0 - 32.0 pg LAB HEMATOLOGY METHOD 08/23/2024 4:[address] [facility] MCHC 32.7 30.7 - 35.5 g/dL LAB HEMATOLOGY METHOD 08/23/2024 4:[address] [facility] RDW 14.9(H) 11.5 - 14.5 % LAB HEMATOLOGY METHOD 08/23/2024 4:[address] [facility] MPV 9.8 8.8 - 12.5 fL LAB HEMATOLOGY METHOD 08/23/2024 4:[address] [facility] nRBC 0.0 <=0.0 per 100 WBCs LAB HEMATOLOGY METHOD 08/23/2024 4:[address] [facility] Blood Venous blood specimen / Unknown Venipuncture / Unknown 08/23/2024 4:12 AM EDT 08/23/2024 4:21 AM EDT us Ben Harman MD LAB BLOOD ORDERABLES Final Result [facility] [address] [place] [address] * (ABNORMAL) Basic Metabolic Panel, Plasma (08/23/2024 4:12 AM EDT) Glucose, Plasma 105(H) 74 - 99 mg/dL 08/23/2024 4:[address] [facility] BUN, Plasma 13 8 - 23 mg/dL 08/23/2024 4:[address] [facility] Creatinine, Plasma 1.13 0.70 - 1.20 mg/dL 08/23/2024 4:[address] [facility] BUN/Creatinine Ratio 12 08/23/2024 4:[address] [facility] Sodium, Plasma 139 136 - 145 mmol/L 08/23/2024 4:[address] [facility] Potassium, Plasma 4.7 3.6 - 4.9 mmol/L 08/23/2024 4:[address] [facility] Chloride, Plasma 107 97 - 107 mmol/L 08/23/2024 4:[address] [facility] CO2, Plasma 21(L) 22 - 29 mmol/L 08/23/2024 4:[address] [facility] Anion Gap 11 6 - 16 mmol/L 08/23/2024 4:[address] [facility] Total Calcium, Plasma 8.5(L) 8.9 - 10.2 mg/dL 08/23/2024 4:[address] [facility] eGFRcr 64.5 mL/min/1.7 3m*2 08/23/2024 4:[address] [facility] Comment:Reported eGFRcr in m L/min/1.73m2 is based the CKD-EPI 2020 equation that does not use a race coefficient. Blood Venous blood specimen / Unknown Venipuncture / Unknown 08/23/2024 4:12 AM EDT 08/23/2024 4:22 AM EDT us Ben Harman MD LAB BLOOD ORDERABLES Final Result [facility] [address] [place] [address] * Surgical Pathology Exam (08/22/2024 1:41 PM EDT) Case Report Surgical Pathology Case: [id number] Authorizing Provider: Ben Harman MD Collected: 08/22/2024 1341 Ordering Location: [facility] Received: 08/22/2024 1431 Pathologist: Bola Harrison MD Specimen: Prostate, Prostate Chips 08/26/2024 1:[address] 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 at 1343 EDT Clinical Information Hematuria, unspecified type [R31.9] Urinary retention [R33.9] 08/26/2024 1:[address] [facility] Gross Description A. PROSTATE CHIPS Received in formalin labeled prostate chips are multiple pieces of pink-cherry soft tissue admixed with red-brown hemorrhagic material measuring 9.0 x 6.0 x 0.8 cm in aggregate and weighing 23.8 g. Measurement Operator sections are submitted in cassettes A1-A8. Cold Time: 10m Ciarra Gallegos 08/26/2024 1:[address] [facility] Note: A resident was involved in the service. I attest I examined the relevant preparations for the specimens and confirmed the diagnosis or interpretation. 08/26/2024 1:[address] [facility] Tissue Prostate / Unknown 08/22/2024 1:41 PM EDT 08/22/2024 2:31 PM EDT Comment:Pre-op diagnosis: Hematuria, unspecified type [R31.9] Urinary retention [R33.9] us Ben Harman MD LAB PATHOLOGY ORDERABLES Fi nal Result [facility] [address] [place] [address] * CT Angio Abdomen Pelvis (08/22/2024 5:12 AM EDT) Anatomical Region Laterality Modality Abdomen, Pelvis Computed Tomogra phy Impressions 08/22/2024 5:49 AM EDT 1. Vascular structures are unremarkable. 2. Increased clot burden within the bladder. No evidence of active arterial extravasation. 3. Severe prostatomegaly. Cystoscopy could be considered for further evaluation for known necrotic bladder neck mass. CRITICAL RESULT: No. COMMUNICATION: Per this written report. Preliminary report signed by Alan Carvalho MD on 08/22/2024 5:46 AM By electronically signing this report, I, the attending physician, attest that I have personally reviewed the images/data for the above examination(s) and agree with the final edited report. Drafted by Alan Carvalho MD on 08/22/2024 5:26 AM Final report signed by Nya Johnson MD on 08/22/2024 5:49 AM Narrative 08/22/2024 5:49 AM EDT CLINICAL INDICATION: bleeding bladder mass, assess for arterial extravasation TECHNIQUE: Imaging of the abdomen and pelvis was performed, from lower chest through pubic symphysis, using spiral technique, following administration of IV contrast, Omnipaque 350, 100 mL according to the CTA Abdomen/Pelvis protocol. Reformatted images in the coronal, sagittal, and oblique planes were generated from the axial data set to facilitate diagnostic accuracy. In addition, 3D images were created and reviewed. Total DLP (Dose-Length Product): 2324.11 mGy.cm. Please note: The reported value represents the total of one or more individual components during the CT acquisition on this date and at this time, and as such, the same value may appear in more than one CT report depending on the interpreting/reporting physicians. COMPARISON: Outside CT abdomen pelvis 06/09/2024 FINDINGS: Vessels: The abdominal aorta and its major branches demonstrate severe atherosclerotic calcifications. Lung Bases: Bibasilar atelectasis or scarring. Cyst within the right lower lobe. Mitral annular calcifications. Liver/Gallbladder/Biliary System: Unchanged subcentimeter hepatic hypoattenuating foci, too small to characterize. Normal Gallbladder. No intra- or extra-hepatic biliary ductal dilatation. Spleen: The spleen enhances homogeneously. Pancreas: The pancreas enhances homogeneously. Adrenals: Unchanged bilateral adrenal nodules. Kidneys: End-stage right multicystic kidney. Multicystic left kidney. The kidneys demonstrate symmetric nephrogram and excretion. No renal or ureteral calculi. No hydronephrosis. Bowel/Mesentery: Small hiatal hernia. Duodenal diverticulum. The small bowel loops are not dilated. The large bowel loops are not dilated. The appendix is visualized and normal. Diverticulosis without evidence of acute diverticulitis. Lymph Nodes: No lymphadenopathy within the abdomen or pelvis. Fluid Survey: No free fluid in the abdomen. No free fluid in the pelvis. Pelvis: Severe prostatomegaly. Diverticulum from the left side of the dome of the bladder is not significantly changed. Increased amount of hyperattenuating material within the latter, possibly representing clot. No evidence of active arterial extravasation. Body Wall: No acute findings. Bones: No acute fracture within the abdomen or pelvis. Procedure Note Nya Johnson MD - 08/22/2024 CLINICAL INDICATION: bleeding bladder mass, assess for arterial extravasation TECHNIQUE: Imaging of the abdomen and pelvis was performed, from lower chest throughpubic symphysis, using spiral technique, following administration of IVcontrast, Omnipaque 350, 100 mL according to the CTA Abdomen/Pelvisprotocol. Reformatted images in the coronal, sagittal, and oblique planeswere generated from the axial data set to facilitate diagnostic accuracy.In addition, 3D images were created and reviewed. Total DLP (Dose-Length Product): 2324.11 mGy.cm. Please note: The reportedvalue represents the total of one or more individual components during theCT acquisition on this date and at this time, and as such, the same valuemay appear in more than one CT report depending on theinterpreting/reporting physicians. COMPARISON: Outside CT abdomen pelvis 06/09/2024 FINDINGS: Vessels: The abdominal aorta and its major branches demonstrate severeatherosclerotic calcifications. Lung Bases: Bibasilar atelectasis or scarring. Cyst within the right lowerlobe. Mitral annular calcifications. Liver/Gallbladder/Biliary System: Unchanged subcentimeter hepatichypoattenuating foci, too small to characterize. Normal Gallbladder. Nointra- or extra-hepatic biliary ductal dilatation. Spleen: The spleen enhances homogeneously. Pancreas: The pancreas enhances homogeneously. Adrenals: Unchanged bilateral adrenal nodules. Kidneys: End-stage right multicystic kidney. Multicystic left kidney. Thekidneys demonstrate symmetric nephrogram and excretion. No renal orureteral calculi. No hydronephrosis. Bowel/Mesentery: Small hiatal hernia. Duodenal diverticulum. The smallbowel loops are not dilated. The large bowel loops are not dilated. Theappendix is visualized and normal. Diverticulosis without evidence ofacute diverticulitis. Lymph Nodes: No lymphadenopathy within the abdomen or pelvis. Fluid Survey: No free fluid in the abdomen. No free fluid in the pelvis. Pelvis: Severe prostatomegaly. Diverticulum from the left side of the domeof the bladder is not significantly changed. Increased amount ofhyperattenuating material within the latter, possibly representing clot.No evidence of active arterial extravasation. Body Wall: No acute findings. Bones: No acute fracture within the abdomen or pelvis. IMPRESSION: 1. Vascular structures are unremarkable. 2. Increased clot burden within the bladder. No evidence of activearterial extravasation. 3. Severe prostatomegaly. Cystoscopy could be considered for furtherevaluation for known necrotic bladder neck mass. CRITICAL RESULT: No. COMMUNICATION: Per this written report. Preliminary report signed by Alan Carvalho MD on 08/22/2024 5:46 AM By electronically signing this report, I, the attending physician, attestthat I have personally reviewed the images/data for the aboveexamination(s) and agree with the final edited report. Drafted by Alan Carvalho MD on 08/22/2024 5:26 AM Final report signed by Nya Johnson MD on 08/22/2024 5:49 AM us Jay Salvador MD IMG CT PROCEDURES Final Resul t * SEND SAURAV MESSAGE (08/22/2024 1:41 AM EDT) Urine Urine specimen obtained by clean catch procedure / Unknown Non-blood Collection / Unknown 08/22/2024 1:41 AM EDT 08/22/2024 1:58 AM EDT us Jay Salvador MD LAB URINE ORDERABLES Final Re sult Performing Organization Address [facility] [place] [address] * (ABNORMAL) Urine Culture (08/22/2024 1:41 AM EDT) Culture <10,000 CFU/mL Staphylococcus coagulase negative(A) 08/23/2024 8:[address] [facility] Urine Urine specimen obtained by clean catch procedure / Unknown Non-blood Collection / Unknown 08/22/2024 1:41 AM EDT 08/22/2024 1:58 AM EDT us Jay Salvador MD LAB MICROBIOLOGY - GENERAL OR DERABLES Final Result Performing Organization Address City/[facility] [place] [address] * Urinalysis Microscopic Examination (08/22/2024 1:41 AM EDT) Urine Urine specimen obtained by clean catch procedure / Unknown Non-blood Collection / Unknown 08/22/2024 1:41 AM EDT 08/22/2024 1:52 AM EDT Result Thuy Salvador MD LAB URINE ORDERABLES Final Re sult Performing Organization Address City/[facility] Co de Phone Number [facility] [address] [place] [address] * Urine Fischer Panel (08/22/2024 1:41 AM EDT) Extra Sent for Culture 08/22/2024 3:[address] [facility] Urine Urine specimen obtained by clean catch procedure / Unknown Non-blood Collection / Unknown 08/22/2024 1:41 AM EDT 08/22/2024 1:58 AM EDT us Jay Salvador MD LAB URINE ORDERABLES Final Re sult [facility] [address] [place] [address] * (ABNORMAL) Urinalysis with reflex microscopic (Culture NOT Included) (08/22/2024 1:41 AM EDT) Color, Urine Red LAB URINALYSIS - AUTOMATED METHOD 08/22/2024 2:[address] [facility] Clarity, Urine Cloudy LAB URINALYSIS - AUTOMATED METHOD 08/22/2024 2:[address] [facility] Spec Rush, Urine 1.015 1.005 - 1.030 LAB URINALYSIS - AUTOMATED METHOD 08/22/2024 2:[address] [facility] pH, Urine 6.5 5.0 - 8.0 LAB URINALYSIS - AUTOMATED METHOD 08/22/2024 2:[address] [facility] Protein, Urine >=300(A) Negative mg/dL LAB URINALYSIS - AUTOMATED METHOD 08/22/2024 2:[address] [facility] Glucose, Urine 100(A) Negative mg/dL LAB URINALYSIS - AUTOMATED METHOD 08/22/2024 2:[address] [facility] Ketones, Urine 15(A) Negative mg/dL LAB URINALYSIS - AUTOMATED METHOD 08/22/2024 2:[address] [facility] Blood, Urine Large(A) Negative LAB URINALYSIS - AUTOMATED METHOD 08/22/2024 2:[address] [facility] Bilirubin, Urine Large(A) Negative LAB URINALYSIS - AUTOMATED METHOD 08/22/2024 2:[address] [facility] Urobilinogen, Urine >=8.0(A) 0.2 to 1.0 mg/dL LAB URINALYSIS - AUTOMATED METHOD 08/22/2024 2:[address] [facility] Leukocytes, Urine Large(A) Negative LAB URINALYSIS - AUTOMATED METHOD 08/22/2024 2:[address] [facility] Nitrite, Urine Positive(A) Negative LAB URINALYSIS - AUTOMATED METHOD 08/22/2024 2:[address] [facility] RBC, Urine >50(A) 0 to 3 /HPF 08/22/2024 2:[address] [facility] Comment:This result was prev iously suppressed from the chart. WBC, Urine Unable to estimate due to obscuring RBC's (UNERBC) 0 to 5 /HPF 08/22/2024 2:[address] [facility] Comment:This result was prev iously suppressed from the chart. Squamous Epithelial Cells Unable to estimate due to obscuring RBC's (UNERBC) 0 to 5 /HPF 08/22/2024 2:[address] [facility] Comment:This result was prev iously suppressed from the chart. Hyaline Casts Unable to estimate due to obscuring RBC's (UNERBC) 0 to 5 /LPF 08/22/2024 2:[address] [facility] Comment:This result was prev iously suppressed from the chart. Bacteria, Urine Present Negative 08/22/2024 2:[address] [facility] Comment:This result was prev iously suppressed from the chart. Urine Urine specimen obtained by clean catch procedure / Unknown Non-blood Collection / Unknown 08/22/2024 1:41 AM EDT 08/22/2024 1:[address] [facility] - 08/22/2024 2:37 AM EDT Urinalysis dipstick results may be inaccurate due to specimen color or an interfering substance in the specimen. Performed by manual method us Jay Salvador MD LAB URINE ORDERABLES Final Re sult [facility] [address] [place] [address] * ED HIV 1/2 Antibody/Antigen Screen w/Reflex to HIV 1/2 Differentiation (08/22/2024 1:26 AM EDT) HIV 1 & 2 Antibody/Antigen Screen Non Reactive Non Reactive 08/22/2024 2:[address] [facility] Comment:Screening for HIV 1 & 2 antibodies, and P24 antigen is NONREACTIVE. No confirmatory testing is required. Blood Venous blood specimen / Unknown Venipuncture / Unknown 08/22/2024 1:26 AM EDT 08/22/2024 1:34 AM EDT us Jay Salvador MD LAB BLOOD ORDERABLES Final Re sult Performing Organization Address [facility] Co de Phone Number [facility] [address] [place] [address] * Hepatitis C Antibody - ED (08/22/2024 1:26 AM EDT) Pathologist [facility] Hepatitis C Antibody Negative Negative 08/22/2024 2:[address] [facility] Blood Venous blood specimen / Unknown Venipuncture / Unknown 08/22/2024 1:26 AM EDT 08/22/2024 1:34 AM EDT us Jay Salvador MD LAB BLOOD ORDERABLES Final Re sult Performing Organization Address [facility] de Phone Number [facility] [address] [place] [address] * PT-INR (08/22/2024 1:26 AM EDT) Pathologist [facility] Prothrombin Time 12.8 12.0 - 14.3 sec 08/22/2024 1:[address] [facility] INR 1.0 0.9 - 1.1 08/22/2024 1:[address] [facility] Blood Venous blood specimen / Unknown Venipuncture / Unknown 08/22/2024 1:26 AM EDT 08/22/2024 1:[address] [facility] - 08/22/2024 1:58 AM EDT OPTIMAL INR RANGES FOR PATIENT ON ORAL ANTICOAGULANT THERAPY Prevention of venous thromboembolism INR 2.0 to 3.0 In patients with heart disease: Atrial fibrillation INR 2.0 to 3.0 Valvular heart disease INR 2.0 to 3.0 Tissue heart valves INR 2.0 to 3.0 Mechanical prosthetic valves INR 2.5 to 3.5 Prevention of recurrent GA INR 2.5 to 3.5 us Jay Salvador MD LAB BLOOD ORDERABLES Final Re sult Performing Organization Address City/[facility]/ZIP Co de Phone Number [facility] [address] [place] [address] * Type and screen (08/22/2024 1:26 AM EDT) ABO/Rh O Positive 08/22/2024 1:13 AM EDT BLOOD BANK Antibody Screen Negative 08/22/2024 1:13 AM EDT BLOOD BANK Specimen Expiration 08/25/2024 23:59 08/22/2024 1:13 AM EDT BLOOD BANK Blood Venous blood specimen / Unknown Venipuncture / Unknown 08/22/2024 1:26 AM EDT 08/22/2024 1:29 AM EDT us Jay Salvador MD LAB BLOOD BANK TEST ORDERABLE S Final Result Performing Organization Address [facility] Co de Phone Number BLOOD BANK [address] [place] [address], * (ABNORMAL) CMP (08/22/2024 1:26 AM EDT) Glucose, Plasma 93 74 - 99 mg/dL 08/22/2024 2:[address] [facility] BUN, Plasma 18 8 - 23 mg/dL 08/22/2024 2:[address] [facility] Creatinine, Plasma 1.27(H) 0.70 - 1.20 mg/dL 08/22/2024 2:[address] [facility] BUN/Creatinine Ratio 14 08/22/2024 2:[address] [facility] Sodium, Plasma 142 136 - 145 mmol/L 08/22/2024 2:[address] [facility] Potassium, Plasma 4.2 3.6 - 4.9 mmol/L 08/22/2024 2:[address] [facility] Chloride, Plasma 107 97 - 107 mmol/L 08/22/2024 2:[address] [facility] CO2, Plasma 21(L) 22 - 29 mmol/L 08/22/2024 2:[address] [facility] Anion Gap 14 6 - 16 mmol/L 08/22/2024 2:[address] [facility] Total Calcium, Plasma 9.2 8.9 - 10.2 mg/dL 08/22/2024 2:[address] [facility] Total Protein 6.7 6.3 - 7.9 g/dL 08/22/2024 2:[address] [facility] Albumin, Plasma 3.8 3.5 - 5.2 g/dL 08/22/2024 2:[address] [facility] AST, Plasma 21 10 - 50 U/L 08/22/2024 2:[address] [facility] ALT, Plasma 19 10 - 50 U/L 08/22/2024 2:[address] [facility] Alkaline Phosphatase, Plasma 91 40 - 115 U/L 08/22/2024 2:[address] [facility] Total Bilirubin, Plasma 0.3 0.2 - 1.1 mg/dL 08/22/2024 2:[address] [facility] eGFRcr 56.1 mL/min/1.7 3m*2 08/22/2024 2:[address] [facility] Comment:Reported eGFRcr in m L/min/1.73m2 is based the CKD-EPI 2020 equation that does not use a race coefficient. Blood Venous blood specimen / Unknown Venipuncture / Unknown 08/22/2024 1:26 AM EDT 08/22/2024 1:33 AM EDT us Jay Salvador MD LAB BLOOD ORDERABLES Final Re sult [facility] [address] [place] [address] * (ABNORMAL) CBC w/diff (08/22/2024 1:26 AM EDT) WBC Count 9.33 3.70 - 10.30 10*3/uL LAB HEMATOLOGY METHOD 08/22/2024 1:[address] [facility] RBC Count 4.39(L) 4.60 - 6.10 10*6/uL LAB HEMATOLOGY METHOD 08/22/2024 1:[address] [facility] HGB 12.9(L) 13.7 - 17.5 g/dL LAB HEMATOLOGY METHOD 08/22/2024 1:[address] [facility] HCT 40.1 40.0 - 51.0 % LAB HEMATOLOGY METHOD 08/22/2024 1:[address] [facility] Platelet Count 352 155 - 369 10*3/uL LAB HEMATOLOGY METHOD 08/22/2024 1:[address] [facility] MCV 91 79 - 98 fL LAB HEMATOLOGY METHOD 08/22/2024 1:[address] [facility] MCH 29.4 26.0 - 32.0 pg LAB HEMATOLOGY METHOD 08/22/2024 1:[address] [facility] MCHC 32.2 30.7 - 35.5 g/dL LAB HEMATOLOGY METHOD 08/22/2024 1:[address] [facility] RDW 15.0(H) 11.5 - 14.5 % LAB HEMATOLOGY METHOD 08/22/2024 1:[address] [facility] MPV 9.9 8.8 - 12.5 fL LAB HEMATOLOGY METHOD 08/22/2024 1:[address] [facility] nRBC 0.0 <=0.0 per 100 WBCs LAB HEMATOLOGY METHOD 08/22/2024 1:[address] [facility] Differential Type Automated LAB HEMATOLOGY METHOD 08/22/2024 1:[address] [facility] Neutrophils % 66 % LAB HEMATOLOGY METHOD 08/22/2024 1:[address] [facility] Lymphocytes % 21 % LAB HEMATOLOGY METHOD 08/22/2024 1:[address] [facility] Monocytes % 11 % LAB HEMATOLOGY METHOD 08/22/2024 1:[address] [facility] Eosinophils % 1 % LAB HEMATOLOGY METHOD 08/22/2024 1:[address] [facility] Basophils % 0 % LAB HEMATOLOGY METHOD 08/22/2024 1:[address] [facility] Immature Granulocytes % 1 % LAB HEMATOLOGY METHOD 08/22/2024 1:[address] [facility] Neutrophils Absolute 6.13(H) 1.60 - 6.10 10*3/uL LAB HEMATOLOGY METHOD 08/22/2024 1:[address] [facility] Lymphocytes Absolute 1.97 1.20 - 3.90 10*3/uL LAB HEMATOLOGY METHOD 08/22/2024 1:[address] [facility] Monocytes Absolute 1.01(H) 0.30 - 0.90 10*3/uL LAB HEMATOLOGY METHOD 08/22/2024 1:[address] [facility] Eosinophils Absolute 0.12 0.00 - 0.50 10*3/uL LAB HEMATOLOGY METHOD 08/22/2024 1:[address] [facility] Basophils Absolute 0.04 0.00 - 0.10 10*3/uL LAB HEMATOLOGY METHOD 08/22/2024 1:[address] [facility] Immature Granulocytes Absolute 0.06 0.00 - 0.06 10*3/uL LAB HEMATOLOGY METHOD 08/22/2024 1:[address] [facility] Blood Venous blood specimen / Unknown Venipuncture / Unknown 08/22/2024 1:26 AM EDT 08/22/2024 1:33 AM EDT Narrative [facility] - 08/22/2024 1:35 AM EDT Therapeutic decision making should be based on absolute values, rather than percentages. Jay Salvador MD LAB BLOOD ORDERABLES Final Re sult [facility] [address] [place] [address] documented in this encounter Visit Diagnoses Diagnosis Gross hematuria- Primary Hematuria, unspecified type Urinary retention Unspecified retention of urine Acute UTI (urinary tract infection) Hematuria Hematuria, unspecified Urinary retention Unspecified retention of urine documented in this encounter Admitting Diagnoses Diagnosis Hematuria Hematuria, unspecified Urinary retention Unspecified retention of urine Gross hematuria documented in this encounter Administered Medications Inactive Administered Medications - up to 3 most recent administrations Medication Order MAR Action Action Date Dose Rate Site acetaminophen (Tylenol) tablet 650 mg 650 mg, Oral, Every 6 hours PRN, Starting on Sun08/22/24 at 1619, Until 08/23/24 at 1802, Routine, Recovery(Phase II-Outpatient)/On Unit(Inpatient), mild pain, moderate pain atorvastatin (Lipitor) tablet 20 mg 20 mg, Oral, Daily, First dose on Sun08/22/24 at 1715, Until Discontinued, Recovery(Phase II-Outpatient)/On Unit(Inpatient) Given 08/23/2024 9:08 AM EDT 20 mg Given 08/22/2024 5:00 PM EDT 20 mg cefTRIAXone (Rocephin) 2 g in sodium chloride 0.9% 100 mL IVPB (vial adapter required) 2 g, Intravenous, Once, 1 dose, On Sun08/22/24 at 0220, STAT New Bag 08/22/2024 2:58 AM EDT 2 g 220 m L/hr cefTRIAXone (Rocephin) 2 g in sodium chloride 0.9% 100 mL IVPB (vial adapter required) 2 g, Intravenous, Every 24 hours, First dose on Sun08/23/24 at 0200, Until Discontinued, Routine New Bag 08/23/2024 1:05 AM EDT 2 g 220 mL/hr docusate sodium (Colace) capsule 100 mg 100 mg, Oral, 2 times daily, First dose on Sun08/22/24 at 2100, Until Discontinued, Routine, Recovery(Phase II-Outpatient)/On Unit(Inpatient) Given 08/23/2024 9:08 AM EDT 100 mg Given 08/22/2024 8:46 PM EDT 100 mg finasteride (Proscar) tablet 5 mg 5 mg, Oral, Daily, First dose on Sun08/22/24 at 1715, Until Discontinued, Routine, Recovery(Phase II-Outpatient)/On Unit(Inpatient) Given 08/23/2024 9:08 AM EDT 5 mg Given 08/22/2024 5:00 PM EDT 5 mg gentamicin (Garamycin) 440 mg in sodium chloride 0.9 % 100 mL IVPB 440 mg (rounded from 435 mg = 5 mg/kg 87 kg Adjusted weight), Intravenous, Once, 1 dose, On Sun08/22/24 at 1215, Routine, Holding - Preprocedure New Bag 08/22/2024 11:41 AM EDT 440 mg 242 mL/hr heparin (porcine) injection 5,000 Units 5,000 Units, Subcutaneous, Every 8 hours scheduled, First dose on Sun08/22/24 at 1800, Until Discontinued, Routine, Recovery(Phase II-Outpatient)/On Unit(Inpatient)Indication s:Prophylaxis of Venous Thromboembolism Given 08/23/2024 5:15 AM EDT 5,000 Units Left Lower Abdomen Given 08/22/2024 5:00 PM EDT 5,000 Units R ight Upper Abdomen ibuprofen tablet 400 mg 400 mg, Oral, Every 6 hours PRN, Starting on Sun08/22/24 at 1619, Until 08/23/24 at 1802, Routine, Recovery(Phase II-Outpatient)/On Unit(Inpatient), mild pain iohexol (OMNIPaque) 350 MG/ML injection 200 mL 200 mL, Intravenous, Once in imaging, 1 dose, Starting on Sun08/22/24 at 0426, Until Sun08/22/24 at 0457, Routine, Imaging Protocol Orders Given 08/22/2024 4:57 AM EDT 100 mL lactated Ringer's infusion 1,000 mL 1,000 mL, Intravenous, Once, 1 dose, On Sun08/22/24 at 0305, STAT New Bag 08/22/2024 4:10 AM EDT 1,000 mL lactated Ringer's infusion 75 mL/hr, Intravenous, Once, 1 dose, On Sun08/22/24 at 1215, Routine New Bag 08/22/2024 11:41 AM EDT 75 mL/hr 75 mL/hr lactated Ringer's infusion 84 mL/hr, Intravenous, Continuous, Starting on Sun08/22/24 at 1715, Until Sun08/23/24 at 0821, Routine New Bag 08/22/2024 4:40 PM EDT 84 mL/hr 84 mL/ hr mometasone-formoterol (Dulera 200) 200-5 MCG/ACT inhaler 2 puff 2 puff, Inhalation, 2 times daily, First dose on Sun08/22/24 at 2100, Until Discontinued, Recovery(Phase II-Outpatient)/On Unit(Inpatient) Given 08/23/2024 9:07 AM EDT 2 puffs Given 08/22/2024 9:23 PM EDT 2 puffs mupirocin (Bactroban) 2 % ointment 1 Application Each Nostril, 2 times daily, 10 doses, First dose on Sun08/22/24 at 2100, Last dose on Sun08/27/24 at 0900, Routine Given 08/23/2024 9:07 AM EDT 1 Application Given 08/22/2024 8:46 PM EDT 1 Application ondansetron (Zofran) injection 4 mg 4 mg, Intravenous, Every 6 hours PRN, Starting on Sun08/22/24 at 1619, Until 08/23/24 at 1802, Routine, Recovery(Phase II-Outpatient)/On Unit(Inpatient), nausea, vomiting oxyCODONE (Roxicodone) immediate release tablet 5 mg 5 mg, Oral, Once as needed, 2 doses, Starting on Sun08/22/24 at 1416, Until Sun08/22/24 at 1947, Routine, Recovery (Phase I only), pain score of 3-5 out of 10 Given 08/22/2024 2:45 PM EDT 5 mg Povidone-Iodine 5 % swab solution 1 Application Nasal, Once, 1 dose, On Sun08/22/24 at 1215, Routine Given 08/22/2024 11:40 AM EDT 1 Application sodium chloride 0.9 % flush 10 mL 10 mL, Intravenous, Every 12 hours, First dose on Sun08/22/24 at 1215, Until Discontinued, Routine, Holding - Preprocedure Given 08/22/2024 11:41 AM EDT 10 mL sodium chloride 0.9 % flush 10 mL 10 mL, Intravenous, Every 12 hours, First dose on Sun08/22/24 at 1715, Until Discontinued, Routine, Recovery(Phase II-Outpatient)/On Unit(Inpatient) sodium chloride 0.9 % flush 10 mL 10 mL, Intravenous, As needed, Starting on Sun08/22/24 at 1617, Until 08/23/24 at 1802, Routine, Recovery(Phase II-Outpatient)/On Unit(Inpatient), line care tamsulosin (Flomax) 24 hr capsule 0.4 mg 0.4 mg, Oral, Nightly, First dose on Sun08/22/24 at 2100, Until Discontinued, Routine, Recovery(Phase II-Outpatient)/On Unit(Inpatient) Given 08/22/2024 8:46 PM EDT 0.4 mg Tiotropium Rosholt Monohydrate (Spiriva Respimat) 2.5 MCG/ACT inhaler 2 puff 2 puff, Inhalation, Daily, First dose on Sun08/22/24 at 1715, Until Discontinued, Recovery(Phase II-Outpatient)/On Unit(Inpatient) Given 08/23/2024 9:15 AM EDT 2 puffs Given 08/22/2024 6:39 PM EDT 2 puffs documented in this encounter Active and Recently Administered Medications Times are shown in EDT. Scheduled Medication Order 08/21/2024 08/22/2024 08/23/2024 atorvastatin (Lipitor) tablet 20 mg 20 mg, Oral, Daily, First dose on Sun08/22/24 at 1715, Until Discontinued, Recovery(Phase II-Outpatient)/On Unit(Inpatient) 1700 (Given - Provider: Stephania Elaine, RN) 0908 (Given - Provider: Shahzad Barrett, ABI) cefTRIAXone (Rocephin) 2 g in sodium chloride 0.9% 100 mL IVPB (vial adapter required) (COMPLETED) 2 g, Intravenous, Once, 1 dose, On Sun08/22/24 at 0220, STAT 0258 (New Bag - Provider: Lilia Romano RN)0407 (Stopped - Provider: Zayda Alexander RN) cefTRIAXone (Rocephin) 2 g in sodium chloride 0.9% 100 mL IVPB (vial adapter required) 2 g, Intravenous, Every 24 hours, First dose on Sun08/23/24 at 0200, Until Discontinued, Routine 0105 (New Bag - Prov ider: Micha Alcazar) docusate sodium (Colace) capsule 100 mg 100 mg, Oral, 2 times daily, First dose on Sun08/22/24 at 2100, Until Discontinued, Routine, Recovery(Phase II-Outpatient)/On Unit(Inpatient) 2045 (Given - Provider: Micha Alcazar) 0908 (Given - Provider: Shahzad Barrett RN) finasteride (Proscar) tablet 5 mg 5 mg, Oral, Daily, First dose on Sun08/22/24 at 1715, Until Discontinued, Routine, Recovery(Phase II-Outpatient)/On Unit(Inpatient) 1700 (Given - Provider: Stephania Elaine RN) 0908 (Given - Provider: Shahzad Barrett RN) gentamicin (Garamycin) 440 mg in sodium chloride 0.9 % 100 mL IVPB (COMPLETED) 440 mg (rounded from 435 mg = 5 mg/kg 87 kg Adjusted weight), Intravenous, Once, 1 dose, On Sun08/22/24 at 1215, Routine, Holding - Preprocedure 1141 (New Bag - Provider: Chanell Denise, ABI) heparin (porcine) injection 5,000 Units 5,000 Units, Subcutaneous, Every 8 hours scheduled, First dose on Sun08/22/24 at 1800, Until Discontinued, Routine, Recovery(Phase II-Outpatient)/On Unit(Inpatient) 1700 (Given - Provider: Stephania Elaine RN) 0515 (Given - Provider: Micha Alcazar)1420 (Not Given - Provider: Shahzad Barrett RN - Reason: Patient/family refused) iohexol (OMNIPaque) 350 MG/ML injection 200 mL (COMPLETED) 200 mL, Intravenous, Once in imaging, 1 dose, Starting on Sun08/22/24 at 0426, Until Sun08/22/24 at 0457, Routine, Imaging Protocol Orders 0457 (Given - Provider: Billy Wiley) lactated Ringer's infusion 1,000 mL (COMPLETED) 1,000 mL, Intravenous, Once, 1 dose, On Sun08/22/24 at 0305, STAT 0410 (New Bag - Provider: Zayda Alexander RN)0440 (Stopped - Provider: Rodriguez Ferrer) lactated Ringer's infusion (COMPLETED) 75 mL/hr, Intravenous, Once, 1 dose, On Sun08/22/24 at 1215, Routine 1141 (New Bag - Provider: Chanell Denise RN) mometasone-formoterol (Dulera 200) 200-5 MCG/ACT inhaler 2 puff(Linked Group 1) 2 puff, Inhalation, 2 times daily, First dose on Sun08/22/24 at 2100, Until Discontinued, Recovery(Phase II-Outpatient)/On Unit(Inpatient) 2122 (Given - Provider: Micha Alcazar) 0907 (Given - Provider: Shahzad Barrett, ABI) mupirocin (Bactroban) 2 % ointment 1 Application Each Nostril, 2 times daily, 10 doses, First dose on Sun08/22/24 at 2100, Last dose on Sun08/27/24 at 0900, Routine 204 (Given - Provider: Micha Alcazar) 0907 (Given - Provider: Shahzad Barrett, ABI) Povidone-Iodine 5 % swab solution 1 Application (COMPLETED) Nasal, Once, 1 dose, On Sun08/22/24 at 1215, Routine 1140 (Given - Provider: Chanell Denise, ABI) sodium chloride 0.9 % flush 10 mL (CANCELED)(Linked Group 2) 10 mL, Intravenous, Every 12 hours, First dose on Sun08/22/24 at 1215, Until Discontinued, Routine, Holding - Preprocedure 1141 (Given - Provider: Chanell Denise, RN) sodium chloride 0.9 % flush 10 mL(Linked Group 3) 10 mL, Intravenous, Every 12 hours, First dose on Sun08/22/24 at 1715, Until Discontinued, Routine, Recovery(Phase II-Outpatient)/On Unit(Inpatient) 171 (Canceled Entry - Provider: Automatic Discharge Provider - Comment: Automatically canceled at discontinue of medication order) 0523 (Not Given - Provider: Micha Alcazar - Reason: Order parameters not met - Comment: IVF infusing)1715 (Canceled Entry - Provider: Automatic Discharge Provider - Comment: Automatically canceled at discontinue of medication order) tamsulosin (Flomax) 24 hr capsule 0.4 mg 0.4 mg, Oral, Nightly, First dose on Sun08/22/24 at 2100, Until Discontinued, Routine, Recovery(Phase II-Outpatient)/On Unit(Inpatient) 2045 (Given - Provider: Micha Alcazar) Tiotropium Rosholt Monohydrate (Spiriva Respimat) 2.5 MCG/ACT inhaler 2 puff(Linked Group 1) 2 puff, Inhalation, Daily, First dose on Sun08/22/24 at 1715, Until Discontinued, Recovery(Phase II-Outpatient)/On Unit(Inpatient) 1839 (Given - Provider: Elissa King, RN) 0915 (Given - Provider: Shahzad Barrett RN) Continuous Medication Order 08/21/2024 08/22/2024 08/23/2024 lactated Ringer's infusion (CANCELED) 84 mL/hr, Intravenous, Continuous, Starting on Sun08/22/24 at 1715, Until 08/23/24 at 0821, Routine 1640 (New Bag - Provider: Stephania Elaine, ABI) PRN Medication Order 08/21/2024 08/22/2024 08/23/2024 acetaminophen (Tylenol) tablet 650 mg 650 mg, Oral, Every 6 hours PRN, Starting on Sun08/22/24 at 1619, Until 08/23/24 at 1802, Routine, Recovery(Phase II-Outpatient)/On Unit(Inpatient), mild pain, moderate pain ibuprofen tablet 400 mg 400 mg, Oral, Every 6 hours PRN, Starting on Sun08/22/24 at 1619, Until 08/23/24 at 1802, Routine, Recovery(Phase II-Outpatient)/On Unit(Inpatient), mild pain ondansetron (Zofran) injection 4 mg 4 mg, Intravenous, Every 6 hours PRN, Starting on Sun08/22/24 at 1619, Until 08/23/24 at 1802, Routine, Recovery(Phase II-Outpatient)/On Unit(Inpatient), nausea, vomiting oxyCODONE (Roxicodone) immediate release tablet 5 mg (CANCELED)(Linked Group 4) 5 mg, Oral, Once as needed, 2 doses, Starting on Sun08/22/24 at 1416, Until Sun08/22/24 at 1947, Routine, Recovery (Phase I only), pain score of 3-5 out of 10 1445 (Given - Provider: Stephania Elaine RN) sodium chloride 0.9 % flush 10 mL(Linked Group 3) 10 mL, Intravenous, As needed, Starting on Sun08/22/24 at 1617, Until 08/23/24 at 1802, Routine, Recovery(Phase II-Outpatient)/On Unit(Inpatient), line care Linked Groups Order Group 1: Tiotropium Rosholt Monohydrate (Spiriva Respimat) 2.5 MCG/ACT inhaler 2 puffJump to med 2 puff, Inhalation, Daily, First dose on Sun08/22/24 at 1715, Until Discontinued, Recovery(Phase II-Outpatient)/On Unit(Inpatient) And mometasone-formoterol (Dulera 200) 200-5 MCG/ACT inhaler 2 puffJump to med 2 puff, Inhalation, 2 times daily, First dose on Sun08/22/24 at 2100, Until Discontinued, Recovery(Phase II-Outpatient)/On Unit(Inpatient) Group 2: Insert peripheral IV (CANCELED) Once, On Sun08/22/24 at 1127, For 1 occurrence, Holding - Preprocedure And Saline lock IV (CANCELED) Once, On Sun08/22/24 at 1127, For 1 occurrence, Holding - Preprocedure And sodium chloride 0.9 % flush 10 mL (CANCELED)Jump to med 10 mL, Intravenous, Every 12 hours, First dose on Sun08/22/24 at 1215, Until Discontinued, Routine, Holding - Preprocedure And sodium chloride 0.9 % flush 10 mL (CANCELED) 10 mL, Intravenous, As needed, Starting on Sun08/22/24 at 1126, Until Sun08/22/24 at 1947, Routine, Holding - Preprocedure, line care Group 3: Insert peripheral IV (CANCELED) Once, On Sun08/22/24 at 1618, For 1 occurrence, Recovery(Phase II-Outpatient)/On Unit(Inpatient) And Saline lock IV (CANCELED) Once, On Sun08/22/24 at 1618, For 1 occurrence, Recovery(Phase II-Outpatient)/On Unit(Inpatient) And sodium chloride 0.9 % flush 10 mLJump to med 10 mL, Intravenous, Every 12 hours, First dose on Sun08/22/24 at 1715, Until Discontinued, Routine, Recovery(Phase II-Outpatient)/On Unit(Inpatient) And sodium chloride 0.9 % flush 10 mLJump to med 10 mL, Intravenous, As needed, Starting on Sun08/22/24 at 1617, Until Sun08/23/24 at 1802, Routine, Recovery(Phase II-Outpatient)/On Unit(Inpatient), line care Group 4: oxyCODONE (Roxicodone) immediate release tablet 5 mg (CANCELED)Jump to med 5 mg, Oral, Once as needed, 2 doses, Starting on Sun08/22/24 at 1416, Until Sun08/22/24 at 1947, Routine, Recovery (Phase I only), pain score of 3-5 out of 10 Or oxyCODONE (Roxicodone) immediate release tablet 10 mg (CANCELED) 10 mg, Oral, Once as needed, 2 doses, Starting on Sun08/22/24 at 1416, Until Sun08/22/24 at 1947, Routine, Recovery (Phase I only), pain score of 6-8 out of 10 documented in this encounter Additional Health Concerns Assessment Noted Time A fall risk assessment has been complete d for the patient 08/11/2024 10:45 AM EDT A Body Mass Index follow-up plan has been documented for the patient 08/23/2024 2:19 PM EDT documented as of this encounter Care Teams [employer] Relationship Specialty Start Date End Date Ronny Belle MD [address] [place] [address] PCP - General 07/01/24 documented as of this encounter
--- OUTSIDE RECORDS SUMMARY | 2024-08-22 11:42 | XMS_ITS | Encounter Summary ---
Author Organization Healthcare Address [address] [place] [address] Care Team Providers Care Transportation Department Head Name Role Phone Ronny Belle MD Primary Care Provider [phone] Reason for Visit * Reason Comments Hematuria * Auth/Cert (Routine) Specialty Diagnoses / Procedures Referred By Contac t Referred To Contact Diagnoses Urinary retention Acute UTI (urinary tract infection) Hematuria, unspecified type Gross hematuria Ben Harman MD [address] [address] Phone: tel: fax: [facility] A Inpatient [address] [place] [address] Phone: tel: Referral ID Status Reason Start Date Expiration Date Visits Re quested Visits Authorized [id number] 1 1 Encounter Details Date Type Department Care Team (Late st Contact Info) Description 08/22/2024 11:42 AM EDT - 08/22/2024 1:32 PM EDT Surgery [facility] A OPERATING ROOM [address] [place] [id number] Ben Harman MD [address] [address] TURBT, TURP, USING BIPOLAR CAUTERY PROBE, WITH SALINE IRRIGATION Surgery Details Date/Time Status Location OR Service Patient Class Case Cl ass Case Type Trauma Case? 08/22/2024 11:42 AM Posted [facility] OR 2OR [facility] Emergency B-Urgent: to be done within 4 hours Panel 1 Procedure LRB Anes Op Region Wound Class Comments TURBT, TURP, USING BIPOLAR CAUTERY PROBE, WITH SALINE IRRIGATION N/A General Ureter Class II/ Clean Contaminated Surgeon Surgeon Role Service Panel Ben Harman MD Primary Urology 1 Luciano Patricia DO Resident - Assisting 1 documented in this encounter Social History Tobacco Use Types Packs/Day Years [...] drink first t herminio in the morning (EYE-REMOTE SENSING ENGINEER) to steady your nerves or to get [...] Sign Reading Time Taken Comments Blood Pressure 149/77 08/22/2024 11:31 AM EDT Pulse 83 08/22/2024 11:31 AM EDT Temperature 36.7 C (98 F) 08/22/2024 11:31 AM EDT Respiratory Rate 18 08/22/2024 11:31 AM EDT Oxygen Saturation 91% 08/22/2024 11:31 AM EDT Inhaled Oxygen Concentration - - Weight 108 kg (238 lb) 08/22/2024 11:27 AM EDT Height - - Body Mass Index 35.16 08/22/2024 7:56 PM EDT documented in this encounter Functional Status * Calculated C-SSRS Risk Score (Lifetime/Recent) Answer Date of Assessment Author No Risk Indicated 08/22/2024 12:01 AM EDT Zayda Calixto, RN * Question Answer Date of Assessment Author 1. Wish to be (Past 1 Month) No 025 12:01 AM EDT Zayda Alexander, RN 2. Non-Specific Active Suici joyce Thoughts (Past 1 Month) No 08/22/2024 12:01 AM EDT Makenzie Alexander, RN 6. Suicidal Behavior (Lifetime) No 12:01 AM EDT Zayda Alexander, RN documented as of this encounter Discharge Instructions [...] confirm your location ahead of your appointment) [facility] Urology Department Clinic at [place] [address] [facility], 2nd Floor, [facility], [address] [place] [address] Clinic After Hours [facility] [address] [place] [address] Clinic After Hours [facility] Multidisciplinary Urology Clinic [address]st [place] [address] Clinic documented in this encounter Medications at Time of Discharge acetaminophen (Tylenol) 325 MG tablet Take 2 tablets by mouth every 6 hours as needed for headaches, pain or fever. Under [place] law, monthly prescriptions (30 days) can be [...] day for 4 days. 8 tablet 08/23/2024 documented as of this encounter Miscellaneous Notes * Shahzad Mills, ABI - 08/23/2024 2:17 PM EDT Images from the original note were not included. [id number] Transurethral Resection of the Prostate (TURP): Home [...] Check with your healthcare provider before taking nbkp-unn-kqfaoim pain relievers. These includeaspirin, ibuprofen, and naproxen. [...] heal. Last Reviewed Date: 2022 00:00:00 ?? [id number] [employer]. All rights reserved. This information is not intended as a substitute for professional medical care. Always follow your healthcare professional's instructions. * Christa DerasLILIAN - Shahzad Barrett RN - 08/23/2024 2:17 [...] PCP name and Address: Ronny Belle MD [address] [place] [address] Referring provider name and address: No referring [...] needed for headaches, pain or fever. Under [place] law, monthly prescriptions (30 days) can be [...] Ellipta 200-62.5-25 MCG/ACT aerosol powder Generic drug: Hlvnytoodpf-Gettbhiuq-Xqzeda inhale one (1) puff daily Where to Get Your Medications These medications were sent to [facility] - [place], [place] - [address] [facility] [address] [facility] [address] acetaminophen 325 MG tablet sulfamethoxazole-trimethoprim 800-160 MG [...] confirm your location ahead of your appointment) [facility] Urology Department Clinic [facility] [address] [facility], 2nd Floor, [place] [address], [address] [place] [address] Clinic After Hours [facility] 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 * Op Note - Ben Harman MD - 08/22/2024 12:36 PM EDT PATIENT NAME: Celestino Lundy : 1940 DATE OF SURGERY: 08/22/24 PROCEDURES PERFORMED: Transurethral resection of prostate PREOPERATIVE DIAGNOSIS: BPH and gross hematuria POSTOPERATIVE DIAGNOSIS: Same SURGEON: Ben Harman MD MATHEMATICS FACULTY MEMBER SURGEON(S): Luciano Patricia DO INTRAOPERATIVE FINDINGS: 1) [...] the start of the case. The 26 Lithuanian resectoscope was inserted into the patient's bladder [...] Patricia DO PGY-3, Department of Urology Pager: [phone] * Progress Notes - Anthony Mohr DO [...] 08/22/2024 1:43 PM EDT Associated attestation - Kywa Malik MD - 08/22/2024 1:43 PM EDT [...] Patricia DO PGY-3, Department of Urology Pager: [phone] * H&P - Anthony Mohr DO - 08/22/2024 8:05 AM EDT Images [...] into the bladder and advanced a 22 Lithuanian Roz three-way catheter over the wire with return of bloody urine. They irrigated with 1.5 L of sterile water with return of approximately 150 cc of clot. At the conclusion of irrigation, the patient's urine was clear. He was started on a slow drip CBI. ED observation consulted. The plan will [...] into the bladder and advanced a 22 Lithuanian Roz three-way catheter over the wire with [...] Patricia DO PGY-3, Department of Urology Pager: [phone] * ED Notes - Rodriguez Ferrer - 08/22/2024 4:42 AM EDT Assumed care of pt at this time. Pt is AAOX4, on CCM, VS stable and WNL. Pt denies pain at this time. Urinal placed at bedside, explained plan of care. All questions answered. Side rails up x2, call light within reach. No needs expressed/identified at this time. Family member at [facility]. Rodriguez Ferrer 08/22/24 0452 * ED Notes - Maria Victoria Wong MD - 08/22/2024 4:11 AM EDT 49/urology Maria Victoria Wong MD Resident 08/22/24 0411 * Consults - Tre Maldonado MD - 08/22/2024 2:55 AM EDTAssociated Order(s): Consult to Urology Consult to Urology Consult performed by: Tre Maldonado MD Consult ordered by: Jay Salvador MD Reason for consult: hematuria concern for clot retention [facility] Urology Consult Note 08/22/24 Service [...] for questions and concerns. Please notify urology chain person of PVRs. Tre Maldonado MD [1] Past [...] and time. EASI ?? Total Score: 0 [place]pton Coma Scale Score: 15 ED Course & [...] w/diff STAT Final result MARIA VICTORIA WONG 08/22/24 011 CMP STAT Final result MARIA VICTORIA WONG 08/22/24112 Type and screen Start now Final result MARIA VICTORIA WONG 08/22/24112 PT-INR STAT Final result MARIA VICTORIA WONG 05/112 Urinalysis with reflex microscopic AND reflex culture [...] patient was was signed out to the oncoming provider (Signed Out) Patient care assumed by oncoming provider, Martínez, at shift change, tentative plan [...] Swelling Maria Victoria Wong MD Resident 08/22/24 0653 Cosigned by Jay Salvador MD at 08/26/2024 [...] Description 12/09/2024 1:40 PM EDT Office Visit [facility] Urology [address], [address]nd [place] [address] Carrie James PA [address] [place] [address] documented as of this encounter Procedures Procedure [...] CBC W/O Differential (08/23/2024 4:12 AM EDT) [facility] Signature WBC Count 11.72(H) 3.70 - 10.30 10*3/uL LAB HEMATOLOGY METHOD 08/23/2024 4:32 AM EDT [facility] RBC Count 4.13(L) 4.60 - 6.10 10*6/uL LAB HEMATOLOGY METHOD 08/23/2024 4:32 AM EDT [facility] HGB 12.1(L) 13.7 - 17.5 g/dL LAB HEMATOLOGY METHOD 08/23/2024 4:32 AM EDT [facility] HCT 37.0(L) 40.0 - 51.0 % LAB HEMATOLOGY METHOD 08/23/2024 4:32 AM EDT [facility] Platelet Count 365 155 - 369 10*3/uL LAB HEMATOLOGY METHOD 08/23/2024 4:32 AM EDT [facility] MCV 90 79 - 98 fL LAB HEMATOLOGY METHOD 08/23/2024 4:32 AM EDT [facility] MCH 29.3 26.0 - 32.0 pg LAB HEMATOLOGY METHOD 08/23/2024 4:32 AM EDT [facility] MCHC 32.7 30.7 - 35.5 g/dL LAB HEMATOLOGY METHOD 08/23/2024 4:32 AM EDT [facility] RDW 14.9(H) 11.5 - 14.5 % LAB HEMATOLOGY METHOD 08/23/2024 4:32 AM EDT [facility] MPV 9.8 8.8 - 12.5 fL LAB HEMATOLOGY METHOD 08/23/2024 4:32 AM EDT [facility] nRBC 0.0 <=0.0 per 100 WBCs LAB HEMATOLOGY METHOD 08/23/2024 4:32 AM EDT [facility] Blood Venous blood specimen / Unknown Venipuncture / Unknown 08/23/2024 4:12 AM EDT 08/23/2024 4:21 AM EDT us Ben Harman MD LAB BLOOD ORDERABLES Final Result [facility] [address] [place] [address] * (ABNORMAL) Basic Metabolic Panel, Plasma (08/23/2024 4:12 AM EDT) Glucose, Plasma 105(H) 74 - 99 mg/dL 08/23/2024 4:52 AM EDT [facility] BUN, Plasma 13 8 - 23 mg/dL 08/23/2024 4:52 AM EDT [facility] Creatinine, Plasma 1.13 0.70 - 1.20 mg/dL 08/23/2024 4:52 AM EDT [facility] BUN/Creatinine Ratio 12 08/23/2024 4:52 AM EDT [facility] Sodium, Plasma 139 136 - 145 mmol/L 08/23/2024 4:52 AM EDT [facility] Potassium, Plasma 4.7 3.6 - 4.9 mmol/L 08/23/2024 4:52 AM EDT [facility] Chloride, Plasma 107 97 - 107 mmol/L 08/23/2024 4:52 AM EDT [facility] CO2, Plasma 21(L) 22 - 29 mmol/L 08/23/2024 4:52 AM EDT [facility] Anion Gap 11 6 - 16 mmol/L 08/23/2024 4:52 AM EDT [facility] Total Calcium, Plasma 8.5(L) 8.9 - 10.2 mg/dL 08/23/2024 4:52 AM EDT [facility] eGFRcr 64.5 mL/min/1.7 3m*2 08/23/2024 4:52 AM EDT [facility] Comment:Reported eGFRcr in m L/min/1.73m2 is based the CKD-EPI 2020 equation that does not use a race coefficient. Blood Venous blood specimen / Unknown Venipuncture / Unknown 08/23/2024 4:12 AM EDT 08/23/2024 4:22 AM EDT us Ben Harman MD LAB BLOOD ORDERABLES Final Result Performing Organization Address City/[facility]/ZIP Co de Phone Number [facility] [address] [place] [address] * Surgical Pathology Exam (08/22/2024 1:41 PM EDT) Case Report Surgical Pathology Case: [id number] Authorizing Provider: Ben Harman MD Collected: 08/22/2024 1341 Ordering Location: [facility] OPERATING ROOM Received: 08/22/2024 1431 Pathologist: Bola Harrison MD Specimen: Prostate, Prostate Chips 08/26/2024 1:43 PM EDT [facility] Final Diagnosis PROSTATE, TRANSURETHRAL RESECTION OF PROSTATE: - PROSTATIC STROMAL AND GLANDULAR HYPERPLASIA - ACUTE PROSTATITIS 08/26/2024 1:43 PM EDT [facility] at 1343 EDT Clinical Information Hematuria, unspecified type [R31.9] Urinary retention [R33.9] 08/26/2024 1:43 PM EDT [facility] Gross Description A. PROSTATE CHIPS Received in formalin labeled prostate chips are multiple pieces of pink-cherry soft tissue admixed with red-brown hemorrhagic material measuring 9.0 x 6.0 x 0.8 cm in aggregate and weighing 23.8 g. Blasting Cap Assembler sections are submitted in cassettes A1-A8. Cold Time: 10m Ciarra Gallegos 08/26/2024 1:43 PM EDT [facility] Note: A resident was involved in the service. I attest I examined the relevant preparations for the specimens and confirmed the diagnosis or interpretation. 08/26/2024 1:43 PM EDT [facility] Tissue Prostate / Unknown 08/22/2024 1:41 PM EDT 08/22/2024 2:31 PM EDT Comment:Pre-op diagnosis: Hematuria, unspecified type [R31.9] Urinary retention [R33.9] us Ben Harman MD LAB PATHOLOGY ORDERABLES Fi nal Result Performing Organization Address City/[facility]/ZIP Co de Phone Number [facility] [address] [place] [address] * CT Angio Abdomen Pelvis (08/22/2024 5:12 [...] Nya Johnson MD on 08/22/2024 5:49 AM Jay Salvador MD IMG CT PROCEDURES Final Resul t * SEND SAURAV MESSAGE (08/22/2024 1:41 AM EDT) Urine Urine specimen obtained by clean catch procedure / Unknown Non-blood Collection / Unknown 08/22/2024 1:41 AM EDT 08/22/2024 1:58 AM EDT us Jay Salvador MD LAB URINE ORDERABLES Final Re sult Performing Organization Address [facility] Co de Phone Number [facility] [address] [place] [address] * (ABNORMAL) Urine Culture (08/22/2024 1:41 AM EDT) Culture <10,000 CFU/mL Staphylococcus coagulase negative(A) 08/23/2024 8:16 AM EDT [facility] Urine Urine specimen obtained by clean catch procedure / Unknown Non-blood Collection / Unknown 08/22/2024 1:41 AM EDT 08/22/2024 1:58 AM EDT us Jay Salvador MD LAB MICROBIOLOGY - GENERAL OR DERABLES Final Result Performing Organization Address [facility] [place] [address] * Urinalysis Microscopic Examination (08/22/2024 1:41 AM EDT) Urine Urine specimen obtained by clean catch procedure / Unknown Non-blood Collection / Unknown 08/22/2024 1:41 AM EDT 08/22/2024 1:52 AM EDT us Jay Salvador MD LAB URINE ORDERABLES Final Re sult Performing Organization Address [facility] [place] [address] * Urine Fischer Panel (08/22/2024 1:41 AM EDT) Extra Sent for Culture 08/22/2024 3:01 AM EDT [facility] Urine Urine specimen obtained by clean catch procedure / Unknown Non-blood Collection / Unknown 08/22/2024 1:41 AM EDT 08/22/2024 1:58 AM EDT us Jay Salvador MD LAB URINE ORDERABLES Final Re sult Performing Organization Address [facility] Co de Phone Number [facility] [address] [place] [address] * (ABNORMAL) Urinalysis with reflex microscopic (Culture NOT Included) (08/22/2024 1:41 AM EDT) Color, Urine Red LAB URINALYSIS - AUTOMATED METHOD 08/22/2024 2:37 AM EDT [facility] Clarity, Urine Cloudy LAB URINALYSIS - AUTOMATED METHOD 08/22/2024 2:37 AM EDT [facility] Spec [place], Urine 1.015 1.005 - 1.030 LAB URINALYSIS - AUTOMATED METHOD 08/22/2024 2:37 AM EDT [facility] pH, Urine 6.5 5.0 - 8.0 LAB URINALYSIS - AUTOMATED METHOD 08/22/2024 2:37 AM T [facility] Protein, Urine >=300(A) Negative mg/dL LAB URINALYSIS - AUTOMATED METHOD 08/22/2024 2:37 AM EDT [facility] Glucose, Urine 100(A) Negative mg/dL LAB URINALYSIS - AUTOMATED METHOD 08/22/2024 2:37 AM EDT [facility] Ketones, Urine 15(A) Negative mg/dL LAB URINALYSIS - AUTOMATED METHOD 08/22/2024 2:37 AM EDT [facility] Blood, Urine Large(A) Negative LAB URINALYSIS - AUTOMATED METHOD 08/22/2024 2:37 AM EDT [facility] Bilirubin, Urine Large(A) Negative LAB URINALYSIS - AUTOMATED METHOD 08/22/2024 2:37 AM EDT [facility] Urobilinogen, Urine >=8.0(A) 0.2 to 1.0 mg/dL LAB URINALYSIS - AUTOMATED METHOD 08/22/2024 2:37 AM EDT [facility] Leukocytes, Urine Large(A) Negative LAB URINALYSIS - AUTOMATED METHOD 08/22/2024 2:37 AM EDT [facility] Nitrite, Urine Positive(A) Negative LAB URINALYSIS - AUTOMATED METHOD 08/22/2024 2:37 AM EDT [facility] RBC, Urine >50(A) 0 to 3 /HPF 08/22/2024 2:37 AM EDT [facility] Comment:This result was prev iously suppressed from the chart. WBC, Urine Unable to estimate due to obscuring RBC's (UNERBC) 0 to 5 /HPF 08/22/2024 2:37 AM EDT [facility] Comment:This result was prev iously suppressed from the chart. Squamous Epithelial Cells Unable to estimate due to obscuring RBC's (UNERBC) 0 to 5 /HPF 08/22/2024 2:37 AM EDT [facility] Comment:This result was prev iously suppressed from the chart. Hyaline Casts Unable to estimate due to obscuring RBC's (UNERBC) 0 to 5 /LPF 08/22/2024 2:37 AM EDT [facility] Comment:This result was prev iously suppressed from the chart. Bacteria, Urine Present Negative 08/22/2024 2:37 AM EDT [facility] Comment:This result was prev iously suppressed from the chart. Urine Urine specimen obtained by clean catch procedure / Unknown Non-blood Collection / Unknown 08/22/2024 1:41 AM EDT 08/22/2024 1:52 AM EDT Narrative [facility] - 08/22/2024 2:37 AM EDT Urinalysis dipstick results may be inaccurate due to specimen color or an interfering substance in the specimen. Performed by manual method us Jya Salvador MD LAB URINE ORDERABLES Final Re sult [facility] [address] [place] [address] * ED HIV 1/2 Antibody/Antigen Screen w/Reflex to HIV 1/2 Differentiation (08/22/2024 1:26 AM EDT) HIV 1 & 2 Antibody/Antigen Screen Non Reactive Non Reactive 08/22/2024 2:15 AM EDT [facility] Comment:Screening for HIV 1 & 2 antibodies, and P24 antigen is NONREACTIVE. No confirmatory testing is required. Blood Venous blood specimen / Unknown Venipuncture / Unknown 08/22/2024 1:26 AM EDT 08/22/2024 1:34 AM EDT us Jay Salvador MD LAB BLOOD [place] [address] * Hepatitis C Antibody - ED (08/22/2024 1:26 AM EDT) Pathologist [facility] Hepatitis C Antibody Negative Negative 08/22/2024 2:15 AM EDT [facility] Blood Venous blood specimen / Unknown Venipuncture / Unknown 08/22/2024 1:26 AM EDT 08/22/2024 1:34 AM EDT us Jay Salvador MD LAB BLOOD ORDERABLES Final Re sult Performing Organization Address [facility] [place] [address] * PT-INR (08/22/2024 1:26 AM EDT) Pathologist [facility] Prothrombin Time 12.8 12.0 - 14.3 sec 08/22/2024 1:58 AM EDT [facility] INR 1.0 0.9 - 1.1 08/22/2024 1:58 AM EDT [facility] Blood Venous blood specimen / Unknown Venipuncture / Unknown 08/22/2024 1:26 AM EDT 08/22/2024 1:33 AM EDT Narrative [facility] - 08/22/2024 1:58 AM EDT OPTIMAL INR RANGES FOR PATIENT ON ORAL ANTICOAGULANT THERAPY Prevention of venous thromboembolism INR 2.0 to 3.0 In patients with heart disease: Atrial fibrillation INR 2.0 to 3.0 Valvular heart disease INR 2.0 to 3.0 Tissue heart valves INR 2.0 to 3.0 Mechanical prosthetic valves INR 2.5 to 3.5 Prevention of recurrent ME INR 2.5 to 3.5 us Jay Salvador MD LAB BLOOD ORDERABLES Final Re sult Performing Organization Address City/[facility]/[place] [address] * Type and screen (08/22/2024 1:26 AM [...] BLOOD BANK TEST ORDERABLE S Final Result BLOOD BANK [address] [place] [address], * (ABNORMAL) CMP (08/22/2024 1:26 AM EDT) Glucose, Plasma 93 74 - 99 mg/dL 08/22/2024 2:07 AM EDT [facility] BUN, Plasma 18 8 - 23 mg/dL 08/22/2024 2:07 AM EDT [facility] Creatinine, Plasma 1.27(H) 0.70 - 1.20 mg/dL 08/22/2024 2:07 AM EDT [facility] BUN/Creatinine Ratio 14 08/22/2024 2:07 AM EDT [facility] Sodium, Plasma 142 136 - 145 mmol/L 08/22/2024 2:07 AM EDT [facility] Potassium, Plasma 4.2 3.6 - 4.9 mmol/L 08/22/2024 2:07 AM EDT [facility] Chloride, Plasma 107 97 - 107 mmol/L 08/22/2024 2:07 AM EDT [facility] CO2, Plasma 21(L) 22 - 29 mmol/L 08/22/2024 2:07 AM EDT [facility] Anion Gap 14 6 - 16 mmol/L 08/22/2024 2:07 AM EDT [facility] Total Calcium, Plasma 9.2 8.9 - 10.2 mg/dL 08/22/2024 2:07 AM EDT [facility] Total Protein 6.7 6.3 - 7.9 g/dL 08/22/2024 2:07 AM EDT [facility] Albumin, Plasma 3.8 3.5 - 5.2 g/dL 08/22/2024 2:07 AM EDT [facility] AST, Plasma 21 10 - 50 U/L 08/22/2024 2:07 AM EDT [facility] ALT, Plasma 19 10 - 50 U/L 08/22/2024 2:07 AM EDT [facility] Alkaline Phosphatase, Plasma 91 40 - 115 U/L 08/22/2024 2:07 AM EDT [facility] Total Bilirubin, Plasma 0.3 0.2 - 1.1 mg/dL 08/22/2024 2:07 AM EDT [facility] eGFRcr 56.1 mL/min/1.7 3m*2 08/22/2024 2:07 AM EDT [facility] Comment:Reported eGFRcr in m L/min/1.73m2 is based the CKD-EPI 2020 equation that does not use a race coefficient. Blood Venous blood specimen / Unknown Venipuncture / Unknown 08/22/2024 1:26 AM EDT 08/22/2024 1:33 AM EDT us Jay Salvador MD LAB BLOOD ORDERABLES Final Re sult [facility] [address] [place] [address] * (ABNORMAL) CBC w/diff (08/22/2024 1:26 AM EDT) WBC Count 9.33 3.70 - 10.30 10*3/uL LAB HEMATOLOGY METHOD 08/22/2024 1:35 AM EDT [facility] RBC Count 4.39(L) 4.60 - 6.10 10*6/uL LAB HEMATOLOGY METHOD 08/22/2024 1:35 AM EDT [facility] HGB 12.9(L) 13.7 - 17.5 g/dL LAB HEMATOLOGY METHOD 08/22/2024 1:35 AM EDT [facility] HCT 40.1 40.0 - 51.0 % LAB HEMATOLOGY METHOD 08/22/2024 1:35 AM EDT [facility] Platelet Count 352 155 - 369 10*3/uL LAB HEMATOLOGY METHOD 08/22/2024 1:35 AM EDT [facility] MCV 91 79 - 98 fL LAB HEMATOLOGY METHOD 08/22/2024 1:35 AM EDT [facility] MCH 29.4 26.0 - 32.0 pg LAB HEMATOLOGY METHOD 08/22/2024 1:35 AM EDT [facility] MCHC 32.2 30.7 - 35.5 g/dL LAB HEMATOLOGY METHOD 08/22/2024 1:35 AM EDT [facility] RDW 15.0(H) 11.5 - 14.5 % LAB HEMATOLOGY METHOD 08/22/2024 1:35 AM EDT [facility] MPV 9.9 8.8 - 12.5 fL LAB HEMATOLOGY METHOD 08/22/2024 1:35 AM EDT [facility] nRBC 0.0 <=0.0 per 100 WBCs LAB HEMATOLOGY METHOD 08/22/2024 1:35 AM EDT [facility] Differential Type Automated LAB HEMATOLOGY METHOD 08/22/2024 1:35 AM EDT [facility] Neutrophils % 66 % LAB HEMATOLOGY METHOD 08/22/2024 1:35 AM EDT [facility] Lymphocytes % 21 % LAB HEMATOLOGY METHOD 08/22/2024 1:35 AM EDT [facility] Monocytes % 11 % LAB HEMATOLOGY METHOD 08/22/2024 1:35 AM EDT [facility] Eosinophils % 1 % LAB HEMATOLOGY METHOD 08/22/2024 1:35 AM EDT [facility] Basophils % 0 % LAB HEMATOLOGY METHOD 08/22/2024 1:35 AM EDT [facility] Immature Granulocytes % 1 % LAB HEMATOLOGY METHOD 08/22/2024 1:35 AM EDT [facility] Neutrophils Absolute 6.13(H) 1.60 - 6.10 10*3/uL LAB HEMATOLOGY METHOD 08/22/2024 1:35 AM EDT [facility] Lymphocytes Absolute 1.97 1.20 - 3.90 10*3/uL LAB HEMATOLOGY METHOD 08/22/2024 1:35 AM EDT [facility] Monocytes Absolute 1.01(H) 0.30 - 0.90 10*3/uL LAB HEMATOLOGY METHOD 08/22/2024 1:35 AM EDT [facility] Eosinophils Absolute 0.12 0.00 - 0.50 10*3/uL LAB HEMATOLOGY METHOD 08/22/2024 1:35 AM EDT [facility] Basophils Absolute 0.04 0.00 - 0.10 10*3/uL LAB HEMATOLOGY METHOD 08/22/2024 1:35 AM EDT [facility] Immature Granulocytes Absolute 0.06 0.00 - 0.06 10*3/uL LAB HEMATOLOGY METHOD 08/22/2024 1:35 AM EDT [facility] Blood Venous blood specimen / Unknown Venipuncture / Unknown 08/22/2024 1:26 AM EDT 08/22/2024 1:33 AM EDT N[facility]ative [facility] - 08/22/2024 1:35 AM EDT Therapeutic decision making should be based on absolute values, rather than percentages. us Jay Salvador MD LAB BLOOD ORDERABLES Final Re sult [facility] [address] [place] [address] documented in this encounter Visit Diagnoses Diagnosis Hematuria, unspecified type Urinary retention Unspecified retention of urine Acute UTI (urinary tract infection) Hematuria Hematuria, unspecified Urinary retention Unspecified retention of urine Hematuria, unspecified type Urinary retention Unspecified retention of urine documented [...] at 1715, Until 08/23/24 at 0821, Routine New Bag 08/22/2024 4:40 [...] 08/22/2024 8:46 PM EDT 0.4 mg Tiotropium [place] Monohydrate (Spiriva Respimat) 2.5 MCG/ACT inhaler 2 [...] Elaine, RN) 0908 (Given - Provider: Shahzad Barrett RN) cefTRIAXone (Rocephin) 2 g in sodium [...] 0105 (New Bag - Prov ider: Micha Ottoniel) docusate sodium (Colace) capsule 100 mg 100 mg, Oral, 2 times daily, First dose on Sun08/22/24 at 2100, Until Discontinued, Routine, Recovery(Phase II-Outpatient)/On Unit(Inpatient) 204 (Given - Provider: Micha Ottoniel) 0908 (Given - Provider: Shahzad Barrett, ABI) finasteride (Proscar) tablet 5 mg 5 mg, Oral, Daily, First dose on Sun08/22/24 at 1715, Until Discontinued, Routine, Recovery(Phase II-Outpatient)/On Unit(Inpatient) 1700 (Given - Provider: Stephania Elaine, ABI) 0908 (Given - Provider: Shahzad Barrett RN) gentamicin (Garamycin) 440 mg in sodium chloride 0.9 % 100 mL IVPB (COMPLETED) 440 mg (rounded from 435 mg = 5 mg/kg 87 kg Adjusted weight), Intravenous, Once, 1 dose, On Sun08/22/24 at 1215, Routine, Holding - Preprocedure 1141 (New Bag - Provider: Chanell Denise RN) heparin (porcine) injection 5,000 Units 5,000 Units, Subcutaneous, Every 8 hours scheduled, First dose on Sun08/22/24 at 1800, Until Discontinued, Routine, Recovery(Phase II-Outpatient)/On Unit(Inpatient) 1700 (Given - Provider: Stephania Elaine RN) 0515 (Given - Provider: Micha Alcazar)1420 (Not Given - Provider: Shahzad Barrett, ABI - Reason: Patient/family refused) iohexol (OMNIPaque) 350 [...] Routine 1141 (New Bag - Provider: Chanell Denise, ABI) mometasone-formoterol (Dulera 200) 200-5 MCG/ACT inhaler 2 [...] Micha Alcazar) 0907 (Given - Provider: Shahzad Barrett RN) Povidone-Iodine 5 % swab solution 1 Application (COMPLETED) Nasal, Once, 1 dose, On Sun08/22/24 at 1215, Routine 1140 (Given - Provider: Chanell Denise RN) sodium chloride 0.9 % flush 10 mL (CANCELED)(Linked Group 2) 10 mL, Intravenous, Every 12 hours, First dose on Sun08/22/24 at 1215, Until Discontinued, Routine, Holding - Preprocedure 1141 (Given - Provider: Chanell Denise, ABI) sodium chloride 0.9 % flush 10 mL(Linked [...] 2100, Until Discontinued, Routine, Recovery(Phase II-Outpatient)/On Unit(Inpatient) 2046 (Given - Provider: Micha Alcazar) Tiotropium [place] Monohydrate (Spiriva Respimat) 2.5 MCG/ACT inhaler 2 puff(Linked Group 1) 2 puff, Inhalation, Daily, First dose on Sun08/22/24 at 1715, Until Discontinued, Recovery(Phase II-Outpatient)/On Unit(Inpatient) 1839 (Given - Provider: Elissa King, ABI) 0915 (Given - Provider: Shahzad Barrett RN) [...] care Linked Groups Order Group 1: Tiotropium [place] Monohydrate (Spiriva Respimat) 2.5 MCG/ACT inhaler 2 [...] documented as of this encounter Care Teams Transportation Department Head Relationship Specialty Start Date End Date Ronny Belle MD [facility] [place] [address] PCP - General 07/01/24 documented as of this encounter
--- OUTSIDE RECORDS SUMMARY | 2024-08-22 12:09 | XMS_ITS | Encounter Summary ---
Author Organization [facility] Address [address] [place] [address] Care Team Providers Care Equine Pharmacology Technician Name Role Phone Ronny Belle MD Primary Care Provider [phone] Reason for Visit * Auth/Cert (Routine) Specialty Diagnoses / Procedures Referred By Contac t Referred To Contact Diagnoses Urinary retention Acute UTI (urinary tract infection) Hematuria, unspecified type Gross hematuria Ben Harman MD [address] [facility] [address] [place] [address] Phone: tel: fax: PAV A Inpatient [address] [place] [address] Phone: tel: Referral ID Status Reason Start Date Expiration Date Visits Re quested Visits Authorized [id number] 1 1 Encounter Details Date Type Department Care Team (Late st Contact Info) Description 08/22/2024 12:09 PM EDT Anesthesia Event PAV A OPERATING ROOM [address] [place] [address] Jordan Reaves DO [address] [place] [address] Mamadou Donohue CRNA [address] [place] [address] Anesthesia Record Procedure Summary Procedure [...] No change to dentition. ; Placed by: CUSTOMER LIAISON; Removal Date: 08/22/24; Removal Time: 1351 08/22/24 [...] drink first t herminio in the morning (EYE-SERVICE CLERK) to steady your nerves or to get [...] and Staff Patient location during procedure: OR CUSTOMER LIAISON: Mamadou Donohue CRNA Performed: CUSTOMER LIAISON Patient Condition Indications for airway management: anesthesia [...] CAUTERY PROBE, WITH SALINE IRRIGATION (Ureter) Location: [facility] Surgeons: Ben Harman [...] ABG No results found for: PHART , QTU8CXA , PO2ART , SO2ART , BEART , ZAY8OTS , HCTART , SODIUMART , POTASSIUMART , POCTCL , POCGLU , IONCALART , LACTATE Lab Results Component Value Date NA 142 08/22/2024 EKG No results found for this or any previous visit (from the past 4464 hours). ECHO No echocardiogram results found for the past 12 months PFTs No results found for: SPF4GNQ , RCK5OWGL , NBY3RSC , FVCPRED Anesthesia Evaluation Physical Exam Airway Mallampati: II Mouth opening: normal TM distance: >3 FB Neck ROM: full Cardiovascular Rhythm: regular Rate: normal Dental (+) edentulous Pulmonary Breath sounds clear to auscultation Neurological Skin Musculoskeletal Extremities Anesthesia Plan ASA 3 - emergent Plan was reviewed with: CUSTOMER LIAISON Anesthesia technique(s) discussed with the patient/family: general [...] Description 12/09/2024 1:40 PM EDT Office Visit [facility] Urology [address] [place] [address] Carrie James PA [address] [place] [address] documented as of this encounter Procedures Procedure Name Priority Date/Time Associated Diagnosis Comments PB ANESTHESIA PLACEHOLDER Routine 08/22/2024 12:25 PM EDT UT AN ELECTIVE ENDOTRACHEAL AIRWAY Routine 08/22/2024 12:25 PM EDT documented in this encounter Results * UT AN ELECTIVE ENDOTRACHEAL AIRWAY, PB ANESTHESIA PLACEHOLDER (08/22/2024 12:25 PM EDT) Narrative Mamadou Donohue CRNA - 08/22/2024 12:25 PM EDT Mamadou Donohue CRNA 08/22/2024 12:40 PM Airway Date/Time: 08/22/2024 12:25 PM Reason: elective Airway not difficult General Information and Staff Patient location during procedure: OR CUSTOMER LIAISON: Mamadou Donohue CRNA Performed: CUSTOMER LIAISON Patient Condition Indications for airway management: anesthesia [...] documented as of this encounter Care Teams Equine Pharmacology Technician Relationship Specialty Start Date End Date Ronny Belle MD [address] [place] [address] PCP - General 07/01/24 documented as of this encounter
--- OUTSIDE RECORDS SUMMARY | 2024-08-26 11:00 | XMS_ITS | Encounter Summary ---
Author Organization Healthcare Address [address] [place] [address] Care Team Providers Care Supervisor Grower Name Role Phone Ronny Belle MD Primary Care Provider [phone] Reason for Visit * Reason Comments urine retention Encounter Details Date Type Department Care Team (Latest Contact Info) Description 08/26/2024 11:00 AM EDT Clinical Support [facility] [address], [address] [place] [address] Robyn Ferguson, RN Urine retention [...] drink first t herminio in the morning (EYE-FERRY ENGINEER) to steady your nerves or to [...] portions of the procedure(s) and immediately available [facility] services the entire duration. See resident note for details. documented in this encounter Plan of Treatment Upcoming Encounters Date Type Department Care Team (Late st Contact Info) Description 12/09/2024 1:40 PM EDT Office Visit [facility] [address], [address] [place] [address] Carrie James PA [address] [place] [address] documented as of this encounter Procedures Procedure [...] documented as of this encounter Care Teams Supervisor Grower Relationship Specialty Start Date End Date Ronny Belle MD [address] [place] [address] PCP - General 07/01/24 documented as of this encounter
--- OUTSIDE RECORDS SUMMARY | 2024-09-02 13:30 | XMS_ITS | Encounter Summary ---
Author Organization Healthcare Address [address] [place] [address] Care Team Providers Care Psychologist Clinical Name Role Phone Ronny Belle MD Primary Care Provider [phone] Reason for Visit * Reason Comments void trial Encounter Details Date Type Department Care Team (Latest Contact Info) Description 09/02/2024 1:30 PM EDT Clinical Support [facility] [address], [address] [place] [address] Robyn Ferguson, RN Urinary retention [R33.9] (Primary Dx) Social History Tobacco Use Types Packs/Day Years Used Date Smoking Tobacco: Former Cigarettes 3 67 1 5 - 2021 Smokeless Tobacco: Never Alcohol Use Standard Drinks/Week [...] drink first t herminio in the morning (EYE-OVEN BAKER) to steady your nerves or to get [...] Sign Reading Time Taken Comments Blood Pressure 136/67 09/02/2024 1:46 PM EDT Pulse 69 09/02/2024 1:36 PM EDT Temperature 36.6 C (97.8 F) 09/02/2024 1:36 PM EDT Respiratory Rate - - Oxygen Saturation 93% 09/02/2024 1:36 PM EDT Inhaled Oxygen Concentration - - Weight 105 kg (231 lb 0.7 oz) 09/02/2024 1:36 PM EDT Height - - Body Mass Index 34.12 08/22/2024 7:56 PM EDT documented in this encounter Functional Status * Over the past 2 weeks, how often have you been bothered by any of the following problems? Question Answer Date of Assessment Author Little interest or pleasure in doing things Not at all 09/02/2024 1:40 PM EDT Robyn Ferguson RN Feeling down, depressed, or hopeless Not at all 09/02/2024 1:40 PM EDT Robyn Ferguson RN Patient Health Questionnaire -2 Score 0 09/02/2024 1:40 PM EDT Robyn Ferguson RN documented as of this encounter Miscellaneous Notes * Progress Notes - Robyn Ferguson RN - 09/02/2024 1:30 PM EDT Celestino Lundy presents to clinic today with daughter for voiding trial. Patient had TURP/TURBT w/ Dr. Harman 08/22/24. Patient developed urinary retention after removing catheter at home as instructed on 08/25/24. Catheter was reinserted in the clinic 08/26/24. Procedure: Voiding trial and catheter removal procedures were discussed with the patient and daughter as well as possibility for catheter replacement if unable to void. Patient verbalized understanding and gaveverbal consent for the procedure. Utilizing the 16 Fr latex coude catheter already in place, sterile water was slowly instilled into the bladder using a tipped syringe. The patient stated a strong urge to urinate after 420 mL had been instilled. The seals catheter was removed after deflating the seals balloon of 25 ml of clear fluid. The patient stood up and successfully voided 410 mL of clear, orange urine into urinal . Plan: The patient verbalized understanding to go to the Emergency Department if unable to void within 12 hours after the appointment. Patient was instructed to call the clinic with any questions or concerns at [phone]. documented in this encounter Plan of Treatment Upcoming Encounters Date Type Department Care Team (Late st Contact Info) Description 12/09/2024 1:40 PM EDT Office Visit [facility] [address], [address] [place] [address] Carrie James PA [address] [place] [address] documented as of this encounter Visit Diagnoses Diagnosis Urinary retention [R33.9]- Primary Unspecified retention of urine documented in this encounter Additional Health Concerns Assessment Noted Time A fall risk assessment has been complete d for the patient 09/02/2024 1:40 PM EDT A Body Mass Index follow-up plan has been documented for the patient 09/02/2024 3:48 PM EDT documented as of this encounter Care Teams Psychologist Clinical Relationship Specialty Start Date End Date Ronny Belle MD [facility] [place] [address] PCP - General 07/01/24 documented as of this encounter
--- OUTSIDE RECORDS SUMMARY | 2024-10-13 13:21 | XMS_ITS | Encounter Summary ---
Author Organization Healthcare Address [address] [place] [address] Care Team Providers Care Generation Manager Name Role Phone Ronny Belle MD Primary Care Provider [phone] Encounter Details Date Type Department Care Team (Latest Contact Info) Description 08/21/2024 Travel Social History Tobacco Use Types Packs/Day Years [...] drink first t herminio in the morning (EYE-ADOLESCENT COORDINATOR) to steady your nerves or to get rid of a hangover? 0 08/22/2024 CAGE Questionnaire Score 0 025 Sex and Gender Information Value Date Recorded Sex Assigned at Male 08/22/2024 8:21 AM EDT Legal Sex Male 2:04 PM EDT Gender Identity Not on file Sexual Orientation Not on file documented as of this encounter Plan of Treatment Upcoming Encounters Date Type Department Care Team (Late Contact Info) Description 12/09/2024 1:40 PM EDT Office Visit [facility] [address], [address] [place] [address] Carrie James PA [address] [place] [address] documented as of this encounter Visit Diagnoses Not on filedocumented in this encounter Additional Health Concerns Assessment Noted Time A fall risk assessment has been complete d for the patient 08/11/2024 10:45 AM EDT A Body Mass Index follow-up plan has been documented for the patient 08/23/2024 2:19 PM EDT documented as of this encounter Care Teams Generation Manager Relationship Specialty Start Date End Date Ronny Belle MD [facility] [place] [address] PCP - General 07/01/24 documented as of this encounter
--- OUTSIDE RECORDS SUMMARY | 2024-10-13 13:21 | XMS_ITS | Clinical Summary ---
Author Organization [facility] Address [address] [place] [address] Care Team Providers Care Architecture Manager Name Role Phone Ronny Belle MD Primary Care Provider [phone] Allergies Active Allergy Reactions Criticality Noted Date Comments Penicillins 05/18/2022 Medications ezetimibe (ZETIA) 10 MG tablet Take 10 mg by mouth daily Active atorvastatin (LIPITOR) 20 MG tablet Take 20 mg by mouth daily Active dutasteride-mcdaniel sulosin 0.5-0.4 MG CAPS Take by mouth daily Active amLODIPine-toby zepril (LOTREL) 10-20 MG per capsule Take 1 capsule by mouth daily Active amiodarone (CORDARONE) 200 MG tablet Take 200 mg by mouth daily Active Metoprolol Succinate 25 MG CS24 Take by mouth daily Active clopidogrel (PLAVIX) 75 MG tablet Take 75 mg by mouth daily Active Family History Medical History Relation Name Comments Diabetes Father Cancer Mother lung Relation Name Status Comments Father Mother Social History Tobacco Use Types Packs/Day Years Used Date Smoking Tobacco: Former Cigarettes Q uit: 05/10/2021 Smokeless Tobacco: Never Tobacco Cessation:Counseling Given: Not Answered Alcohol Use Standard Drinks/Week Comments Not Currently 0 (1 standard drink = 0.6 oz pur e alcohol) Sex and Gender Information Value Date Recorded Sex Assigned at Not on file Legal Sex Male 9:34 AM EST Gender Identity Not on file Sexual Orientation Not on file Last Filed Vital Signs Vital Sign Reading Time Taken Comments Blood Pressure 140/66 05/23/2022 2:13 PM EST Pulse 56 05/23/2022 2:13 PM EST Temperature 36.1 C (97 F) 05/23/2022 1:53 PM EST Respiratory Rate 15 05/23/2022 2:13 PM EST Oxygen Saturation 96% 05/23/2022 2:13 PM EST Inhaled Oxygen Concentration - - Weight 97.5 kg (215 lb) 05/18/2022 9:45 AM EST Height 175.3 cm (5' 9 ) 05/18/2022 9:45 AM EST Body Mass Index 31.75 05/18/2022 9:45 AM EST Plan of Treatment Health Maintenance Due Date Last Done Comments DTaP/Tdap/Td vaccine (1 - Tdap) 10/29/1959 Respiratory Syncytial Virus (RSV) or age 60 yrs+ (1 - 1-dose 75+ series) 10/29/2015 COVID-19 Vaccine (2023-2 5 season) 2023 Flu vaccine (#1) 11/07/2024 Polio vaccine Aged Out No longer elig ible based on patient's age to complete this topic Insurance MEDICARE Care Teams Architecture Manager Relationship Specialty Start Date End Date Ronny Belle MD [address] [place] [address] PCP - General Family Medicine 04/27/22
--- OUTSIDE RECORDS SUMMARY | 2024-10-13 13:21 | XMS_ITS | Clinical Summary ---
Author Organization [facility] Address [address] [place] [address] Care Team Providers Care Engineering Design Supervisor Name Role Phone Ronny Belle MD Primary Care Provider [phone] Allergies No known active allergies Social History Tobacco Use Types Packs/Day Years Used Date Smoking Tobacco: Former Cigarettes Q uit: 08/2021 Smokeless Tobacco: Never Tobacco Cessation:Counseling Given: Not Answered Alcohol Use Standard Drinks/Week Comments Never 0 (1 standard drink = 0.6 oz pur e alcohol) Sex and Gender Information Value Date Recorded Sex Assigned at Not on file Legal Sex Male 5:34 PM EST Gender Identity Not on file Sexual Orientation Not on file Last Filed Vital Signs Vital Sign Reading Time Taken Comments Blood Pressure 123/70 04/13/2022 1:00 PM EST Pulse 69 04/13/2022 1:00 PM EST Temperature 36.8 C (98.2 F) 04/13/2022 9:53 AM EST Respiratory Rate 17 04/13/2022 1:00 PM EST Oxygen Saturation 94% 04/13/2022 1:00 PM EST Inhaled Oxygen Concentration - - Weight - - Height - - Body Mass Index - - Plan of Treatment Health Maintenance Due Date Last Done Comments Lipid Screening 1958 Tetanus Vaccination (Every 10 Years) 1958 Pneumococcal Vaccine: 50+ Years (1 of 1 - PCV) 991 Zoster-RZV(Shingrix) (1 of 2) 1990 Fall Risk Assessment 2005 RSV Vaccines (1 - 1-dose 75+ series) 10/29/2015 COVID-19 Vaccine ( season) 2023 Advance Care Planning 04/09/2024 Depression Screening 04/09/2024 Influenza Vaccination (#1) 2024 Insurance [employer] MEDICARE Care Teams Engineering Design Supervisor Relationship Specialty Start Date End Date Ronny Belle MD [address] [place], [place] [id number] PCP - General Family Medicine 04/13/22
--- OUTSIDE RECORDS SUMMARY | 2024-10-13 13:21 | XMS_ITS | Encounter Summary ---
Author Organization Healthcare Address [address] [place] [address] Care Team Providers Care Wheel Grinder Name Role Phone Ronny Belle MD Primary Care Provider [phone] Encounter Details Date Type Department Care Team ([facility] st Contact Info) Description 08/22/2024 Orders Only External Location [address] [place] [address] Provider, External Social History Tobacco Use Types Packs/Day Years [...] drink first t herminio in the morning (EYE-WARHEAD MAINTENANCE SPECIALIST) to steady your nerves or to get [...] Micha Alcazar documented as of this encounter Plan of Treatment Upcoming Encounters Date Type Department Care Team (Late st Contact Info) Description 12/09/2024 1:40 PM EDT Office Visit [facility] [address], [address] [place] [address] Carrie James PA [address] [place] [address] documented as of this encounter Procedures Procedure Name Priority Date/Time Associated Diagnosis Comments POC ULTRASOUND 08/22/2024 documented in this encounter Results * POC Imaging (08/22/2024) Anatomical Region Laterality Modality Pelvis Other 08/22/2024 us External Provider IMG POINT OF CARE ULTRASOUND F inal Result documented in this encounter Visit Diagnoses Not on filedocumented in this encounter Additional Health Concerns Assessment Noted Time A fall risk assessment has been complete d for the patient 08/11/2024 10:45 AM EDT A Body Mass Index follow-up plan has been documented for the patient 08/23/2024 2:19 PM EDT documented as of this encounter Care Teams Wheel Grinder Relationship Specialty Start Date End Date Ronny Belle MD [facility] [place] [address] PCP - General 07/01/24 documented as of this encounter
--- NOTE | 2024-10-13 13:22 | XR_ITS ---
FINAL REPORT TECHNIQUE: Chest PA & Lateral CLINICAL HISTORY: BLE edema, cough COMPARISON: 05/20/2024 FINDINGS: 2 views of the chest were performed. The heart size is normal. The mediastinum is within normal limits. There is scarring noted at the lung bases. The lungs are better inflated than on previous exam. There are no new infiltrates. There are no pleural effusions. There is no pneumothorax. The bony thorax appears intact. IMPRESSION: Improvement in inflammation, no new infiltrate identified. Reviewed, Interpreted and Dictated by Larry Camacho MD Transcribed by Bernie Doe Authenticated and [facility]
--- OUTSIDE RECORDS SUMMARY | 2024-10-13 13:22 | XMS_ITS | Encounter Summary ---
Author Organization Healthcare Address [address] [place] [address] Care Team Providers Care Warranty Coordinator Name Role Phone Ronny Belle MD Primary Care Provider [phone] Encounter Details Date Type Department Care Team (Late st Contact Info) Description 09/04/2024 Results Follow-Up [facility] [address] [place] [address] Ben Harman MD [address] [place] [address] Social History Tobacco Use Types Packs/Day Years Used Date Smoking Tobacco: Former Cigarettes 3 67 1 955 - 2021 Smokeless Tobacco: Never Alcohol Use [...] drink first t herminio in the morning (EYE-INTERACTIVE GRAPHIC DESIGNER) to steady your nerves or to get rid of a hangover? 0 08/22/2024 CAGE Questionnaire Score 0 025 Sex and Gender Information Value Date Recorded Sex Assigned at Male 08/22/2024 8:21 AM EDT Legal Sex Male 2:04 PM EDT Gender Identity Not on file Sexual Orientation Not on file documented as of this encounter Miscellaneous Notes * Telephone Encounter - Ben Harman MD - 09/04/2024 1:21 PM EDT Images from the original note were not included. I spoke to the patient's daughter. He has successfully passed a voiding trial. He follows closely with Dr. Chavez. He will follow up with us as needed Surgical Pathology Exam: [id number] Order: [id number] Status: Final result Dx: Hematuria, unspecified type; Urinary ... 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 documented in this encounter Plan of Treatment Upcoming Encounters Date Type Department Care Team (Late st Contact Info) Description 12/09/2024 1:40 PM EDT Office Visit [facility] [address] [place] [address] Carrie James PA [address] [place] [address] documented as of this encounter Visit Diagnoses Not on filedocumented in this encounter Additional Health Concerns Assessment Noted Time A fall risk assessment has been complete d for the patient 09/02/2024 1:40 PM EDT A Body Mass Index follow-up plan has been documented for the patient 09/02/2024 3:48 PM EDT documented as of this encounter Care Teams Warranty Coordinator Relationship Specialty Start Date End Date Ronny Belle MD [address] [place] [address] PCP - General 07/01/24 documented as of this encounter
--- OUTSIDE RECORDS SUMMARY | 2024-10-13 13:22 | XMS_ITS | Encounter Summary ---
Author Organization Healthcare Address [address] [place] [address] Care Team Providers Care Oyster Culturist Name Role Phone Ronny Belle MD Primary Care Provider [phone] Encounter Details Date Type Department Care Team (Latest Contact Info) Description 08/26/2024 Travel Social History Tobacco Use Types Packs/Day Years Used Date Smoking Tobacco: Former Cigarettes 3 67 9 299 - 2021 Smokeless Tobacco: Never Alcohol Use [...] drink first t herminio in the morning (EYE-AUTOMATION CONTROLS ENGINEER) to steady your nerves or to [...] Description 12/09/2024 1:40 PM EDT Office Visit [facility] [address], [address] [place] [address] Carrie James PA [address] [place] [address] documented as of this encounter Visit Diagnoses Not on filedocumented in this encounter Additional Health Concerns Assessment Noted Time A fall risk assessment has been complete d for the patient 08/11/2024 10:45 AM EDT A Body Mass Index follow-up plan has been documented for the patient 08/23/2024 2:19 PM EDT documented as of this encounter Care Teams Oyster Culturist Relationship Specialty Start Date End Date Ronny Belle MD [address] [place] [address] PCP - General 07/01/24 documented as of this encounter
--- OUTSIDE RECORDS SUMMARY | 2024-10-13 13:22 | XMS_ITS | Encounter Summary ---
Author Organization Healthcare Address [address] [place] [address] Care Team Providers Care Outbound Telemarketer Name Role Phone Ronny Belle MD Primary Care Provider Encounter Details Date Type Department Care Team (Latest Contact Info) Description 08/22/2024 Travel Social History Tobacco Use Types Packs/Day [...] drink first t herminio in the morning (EYE-DIESEL ENGINE INSPECTOR) to steady your nerves or to get [...] of Assessment Author No Risk Indicated 08/22/2024 10:00 PM EDT Elena Alcazar * Question Answer Date of Assessment Author 1. Wish to be (Past 1 Month) No 025 10:00 PM EDT Micha Alcazar 2. Non-Specific Active Suici joyce Thoughts (Past 1 Month) No 08/22/2024 10:00 PM EDT Micha Alcazar 6. Suicidal Behavior (Lifetime) No 10:00 PM EDT Micha Alcazar documented as of this encounter Plan of Treatment Upcoming Encounters Date Type Department Care Team (Late st Contact Info) Description 12/09/2024 1:40 PM EDT Office Visit [facility] [address], [address] [place] [address] Carrie James PA [address] [place] [address] documented as of this encounter Visit Diagnoses Not on filedocumented in this encounter Additional Health Concerns Assessment Noted Time A fall risk assessment has been complete d for the patient 08/11/2024 10:45 AM EDT A Body Mass Index follow-up plan has been documented for the patient 08/23/2024 2:19 PM EDT documented as of this encounter Care Teams Outbound Telemarketer Relationship Specialty Start Date End Date Ronny Belle MD [facility] [place] [address] PCP - General 07/01/24 documented as of this encounter
--- OUTSIDE RECORDS SUMMARY | 2024-10-13 13:22 | XMS_ITS | Clinical Summary ---
Author Organization Healthcare Address [address] [place] [address] Care Team Providers Care Circulation Tender Name Role Phone Ronny Belle MD Primary Care Provider [phone] Allergies Active Allergy Reactions Criticality Noted Date Comments Penicillins Swelling High 07/06/2021 Medications Dutasteride-Ta msulosin HCl 0.5-0.4 MG capsule Take 1 capsule by mouth daily. Active amLODIPine-velia azepril (Lotrel) 10-20 MG capsule Take 1 capsule by mouth daily. Active atorvastatin (Lipitor) 20 MG tablet Take 1 tablet by mouth. Active ezetimibe (Zetia) 10 MG tablet Take 1 tablet by mouth. Active Trelegy Ellipta 200-62.5-25 MCG/ACT aerosol powder inhale one (1) puff daily 5 Active acetaminophen (Tylenol) 325 MG tablet Take 2 tablets by mouth every 6 hours as needed for headaches, pain or fever. Under [facility] law, monthly prescriptions (30 days) can be refilled at 25 days and three-month prescriptions (90 days) at 80 days. Please contact the insurance company with questions if refills are denied. 100 tablet 5 Active albuterol 108 (90 Base) MCG/ACT inhaler 2 puffs as needed for shortness of breath or wheezing. 4 Active Active Problems Problem Noted Date Diagnosed Date Gross hematuria 08/22/2024 Hematuria 08/21/2024 Urinary retention 08/21/2024 Prostate mass 08/11/2024 Encounters Date Type Department Care Team Description 09/04/2024 Results Follow-Up [facility] Urology [address] [place] [address] Ben Harman MD 09/02/2024 1:30 PM EDT Clinical Support [facility] Urology [address], [facility] [place] [address] Robyn Ferguson RN Urinary retention [R33.9] (Primary Dx) 09/02/2024 Travel 08/26/2024 11:00 AM EDT Clinical Support [facility] Urology [address], [facility] [place] [address] Robyn Ferguson RN Urine retention (Primary Dx) 08/26/2024 Travel 08/26/2024 Telephone [facility] Urology 0 [facility], [address] [place] [phone] Ben Harman MD 08/22/2024 12:09 PM EDT Anesthesia Event [facility] [address] [place] [address] Jordan Reaves DO Gordon, Mark W, OFE 08/22/2024 11:42 AM EDT - 08/22/2024 1:32 PM EDT Surgery [facility] [address] [place] [phone] Ben Harman MD TURBT, TURP, USING BIPOLAR CAUTERY PROBE, WITH SALINE IRRIGATION 08/22/2024 Travel 08/22/2024 Orders Only External Location [address] [place] [address] Provider, External 08/21/2024 11:48 PM EDT - 08/23/2024 4:02 PM EDT Hospital Encounter [facility] Inpatient [address] [place] [address] Jay Salvador MD Belcher, Christopher N, MD Desai, Sameer M, MD Hensley, Patrick J, MD Hematuria, unspecified type (Primary Dx); Urinary retention; Acute UTI (urinary tract infection) Discharge Disposition: Home or Self Care 08/21/2024 Travel 08/12/2024 Telephone [facility] Urology [address], [address] [place] [address] Ben Harman MD 08/11/2024 11:15 AM EDT Consult Medical Office Building Urology [address] [facility], [address] [place] [address] Ben Harman MD Prostate mass (Primary Dx) 08/11/2024 Telephone [facility] Pre-op Clinic [address], [address] [place] [address] Hugo Menchaca MD 08/11/2024 Travel from Last 3 Months Social History Tobacco Use Types Packs/Day Years Used Date Smoking Tobacco: Former Cigarettes 3 67 1 5 - 2021 Smokeless Tobacco: Never Tobacco Cessation:Counseling [...] drink first t herminio in the morning (EYE-SCREEN PRINTER) to steady your nerves or to get [...] F) 09/02/2024 1:36 PM EDT Respiratory Rate 16 08/23/2024 7:21 AM EDT Oxygen Saturation 93% 09/02/2024 1:36 PM EDT Inhaled Oxygen Concentration - - Weight 105 kg (231 lb 0.7 oz) 09/02/2024 1:36 PM EDT Height 175.3 cm (5' 9 ) 08/22/2024 7:56 PM EDT Body Mass Index 34.12 08/22/2024 7:56 PM EDT Plan of Treatment Upcoming Encounters Date Type Department Care Team (Late st Contact Info) Description 12/09/2024 1:40 PM EDT Office Visit [facility] Urology [address], [address] [place] [address] Carrie James PA [address] [place] [address] Health Maintenance Due Date Last Done Comments [facility]-Medicare Annual Wellness (AWV) 1940 [facility]-/Child/Adol SDOH Screenings 1940 [facility]- SDOH Screenings 1958 [facility]-Adult SDOH Screenings 1958 [facility]-DTaP,Tdap,and Td Vaccines (1 - Tdap) 10/29/1959 [facility]-Pneumococcal Vaccine: 50+ Years (1 of 1 - PCV) 1990 [facility]-Zoster Vaccines (1 of 2) 1990 [facility]-RSV Vaccine: 60+ Years or (1 - 1-dose 75+ series) 10/29/2015 [id number] Vaccine ( - season) 2023 01/25/2022, 02/09/2021, 07/01/2020, Additional history exists [facility]-Influenza Vaccine (#1) 2024 [facility]-Depression Screening 09/02/2025 09/02/2024 [facility]-Obesity Intervention Completed 025, 08/21/2024, 08/21/2024, Additional history exists HPV Vaccines Aged Out No longer eligi ble based on patient's age to complete this topic [facility]-HIB Vaccines Aged Out No longer e ligible based on patient's age to complete this topic [facility]-Hepatitis A Vaccines Aged Out No longer eligible based on patient's age to complete this topic [facility]-IPV Vaccines Aged Out No longer e ligible based on patient's age to complete this topic [facility]-Rotavirus Vaccines Aged Out No lo nger eligible based on patient's age to complete this topic Procedures Procedure Name Priority Date/Time Associated Diagnosis Comments POC US BLADDER SCAN FOR VOLUME Routine 08/26/2024 11:15 AM EDT Urine retention CBC W/O DIFFERENTIAL Pending Discharge 08/23/2024 4:12 AM EDT BASIC METABOLIC PANEL, PLASMA Pending Discharge 08/23/2024 4:12 AM EDT SURGICAL PATHOLOGY EXAM Routine 08/22/2024 1:41 PM EDT Hematuria, unspecified type Urinary retention PB ANESTHESIA PLACEHOLDER Routine 08/22/2024 12:25 PM EDT IN AN ELECTIVE ENDOTRACHEAL AIRWAY Routine 08/22/2024 12:25 PM EDT TURBT, USING BIPOLAR CAUTERY PROBE, WITH SALINE IRRIGATION 08/22/2024 11:58 AM EDT Hematuria, unspecified type Urinary retention CT ANGIO ABDOMEN PELVIS STAT 08/22/2024 5:12 AM EDT SEND SAURAV MESSAGE STAT 08/22/2024 1: 41 AM EDT URINALYSIS MICROSCOPIC FOR UA REFLEX STAT 08/22/2024 1:41 AM EDT URINE FISCHER PANEL STAT 08/22/2024 1:41 AM EDT URINALYSIS WITH REFLEX MICROSCOPIC STAT 08/22/2024 1:41 AM EDT URINALYSIS WITH REFLEX MICROSCOPIC AND CULTURE STAT 08/22/2024 1:41 AM EDT URINE CULTURE [...] / INR STAT 08/22/2024 1:26 AM EDT TYPE AND SCREEN STAT 08/22/2024 1:26 AM EDT COMPREHENSIVE METABOLIC PANEL, PLASMA STAT 08/22/2024 1:26 AM EDT CBC WITH AUTO DIFFERENTIAL STAT 08/22/2024 1:26 AM EDT POC ULTRASOUND 08/22/2024 [facility]- UROLOGY Routine 08/11/2024 2:08 PM EDT Prostate mass from Last 3 Months Results * POC US Bladder Volume (08/26/2024 11:15 AM EDT) Pathologist [facility] Urine, Volume 616 mL IMAGING Anatomical Region Laterality Modality Other Carrie ALVAREZ IMG POINT OF CARE ULTRASOUN D Final Result * (ABNORMAL) CBC W/O Differential (08/23/2024 4:12 AM EDT) WBC Count 11.72(H) 3.70 - 10.30 10*3/uL LAB HEMATOLOGY METHOD 08/23/2024 4:32 AM EDT [facility] RBC Count 4.13(L) 4.60 - 6.10 10*6/uL LAB HEMATOLOGY METHOD 08/23/2024 4:32 AM EDT [facility] HGB 12.1(L) 13.7 - 17.5 g/dL LAB HEMATOLOGY METHOD 08/23/2024 4:32 AM EDT [facility] HCT 37.0(L) 40.0 - 51.0 % LAB HEMATOLOGY METHOD 08/23/2024 4:32 AM EDT [facility] Platelet Count 365 155 - 369 10*3/uL LAB HEMATOLOGY METHOD 08/23/2024 4:32 AM EDT [facility] MCV 90 79 - 98 fL LAB HEMATOLOGY METHOD 08/23/2024 4:32 AM EDT [facility] MCH 29.3 26.0 - 32.0 pg LAB HEMATOLOGY METHOD 08/23/2024 4:32 AM EDT [facility] MCHC 32.7 30.7 - 35.5 g/dL LAB HEMATOLOGY METHOD 08/23/2024 4:32 AM EDT [facility] RDW 14.9(H) 11.5 - 14.5 % LAB HEMATOLOGY METHOD 08/23/2024 4:32 AM EDT [facility] MPV 9.8 8.8 - 12.5 fL LAB HEMATOLOGY METHOD 08/23/2024 4:32 AM EDT [facility] nRBC 0.0 <=0.0 per 100 WBCs LAB HEMATOLOGY METHOD 08/23/2024 4:32 AM EDT [facility] Blood Venous blood specimen / Unknown Venipuncture / Unknown 08/23/2024 4:12 AM EDT 08/23/2024 4:21 AM EDT us Ben Harman MD LAB BLOOD ORDERABLES Final Result Performing Organization Address City/State/[facility] Co de Phone Number [facility] [address] [place] [address] * (ABNORMAL) Basic Metabolic Panel, Plasma (08/23/2024 4:12 AM EDT) Glucose, Plasma 105(H) 74 - 99 mg/dL 08/23/2024 4:52 AM EDT [facility] BUN, Plasma 13 8 - 23 mg/dL 08/23/2024 4:52 AM EDT [facility] Creatinine, Plasma 1.13 0.70 - 1.20 mg/dL 08/23/2024 4:52 AM EDT [facility] BUN/Creatinine Ratio 12 08/23/2024 4:52 AM EDT [facility] Sodium, Plasma 139 136 - 145 mmol/L 08/23/2024 4:52 AM EDT [facility] Potassium, Plasma 4.7 3.6 - 4.9 mmol/L 08/23/2024 4:52 AM EDT [facility] Chloride, Plasma 107 97 - 107 mmol/L 08/23/2024 4:52 AM EDT [facility] CO2, Plasma 21(L) 22 - 29 mmol/L 08/23/2024 4:52 AM EDT [facility] Anion Gap 11 6 - 16 mmol/L 08/23/2024 4:52 AM EDT [facility] Total Calcium, Plasma 8.5(L) 8.9 - 10.2 mg/dL 08/23/2024 4:52 AM EDT [facility] eGFRcr 64.5 mL/min/1.7 3m*2 08/23/2024 4:52 AM EDT [facility] Comment:Reported eGFRcr in m L/min/1.73m2 is based the CKD-EPI 2020 equation that does not use a race coefficient. Blood Venous blood specimen / Unknown Venipuncture / Unknown 08/23/2024 4:12 AM EDT 08/23/2024 4:22 AM EDT us Ben Harman MD LAB BLOOD ORDERABLES Final Result [facility] [address] [place] [address] * Surgical Pathology Exam (08/22/2024 1:41 PM EDT) Case Report Surgical Pathology Case: [id number] Authorizing Provider: Ben Harman MD Collected: 08/22/2024 1341 Ordering Location: [facility] A OPERATING ROOM Received: 08/22/2024 1431 Pathologist: Bola Harrison MD Specimen: Prostate, Prostate Chips 08/26/2024 1:43 PM EDT [facility] Final Diagnosis PROSTATE, TRANSURETHRAL RESECTION OF PROSTATE: - 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 PROSTATE CHIPS Received in formalin labeled prostate chips are multiple pieces of pink-cherry soft tissue admixed with red-brown hemorrhagic material measuring 9.0 x 6.0 x 0.8 cm in aggregate and weighing 23.8 g. Quality Assurance Monitor sections are submitted in cassettes A1-A8. Cold Time: 10m Ciarra Aayush Rosy 08/26/2024 1:43 PM EDT [facility] Note: A resident was involved in the service. I attest I examined the relevant preparations for the specimens and confirmed the diagnosis or interpretation. 08/26/2024 1:43 PM EDT [facility] Tissue Prostate / Unknown 08/22/2024 1:41 PM EDT 08/22/2024 2:31 PM EDT Comment:Pre-op diagnosis: Hematuria, unspecified type [R31.9] Urinary retention [R33.9] us Ben Harman MD LAB PATHOLOGY ORDERABLES Fi nal Result [facility] [address] [place] [address] * IN AN ELECTIVE ENDOTRACHEAL AIRWAY, PB ANESTHESIA PLACEHOLDER (08/22/2024 12:25 PM EDT) Narrative Mamdaou Donohue CRNA - 08/22/2024 12:25 PM EDT Mamadou Donohue CRNA 08/22/2024 12:40 PM Airway Date/Time: 08/22/2024 12:25 PM Reason: elective Airway not difficult General Information and Staff Patient location during procedure: OR POST ANESTHESIA ROOM NURSE: Mamadou Donohue CRNA Performed: POST ANESTHESIA ROOM NURSE Patient Condition Indications for airway management: anesthesia [...] Additional Comments Atraumatic. No change to dentition. us Jordan Kash Jelly PERERA ANESTHESIA ORDERABLES Final Result * CT Angio Abdomen Pelvis (08/22/2024 5:12 [...] ORDERABLES Final Re sult Performing Organization Address [facility] Co de Phone Number [facility] [address] [place] [address] * Urine Fischer Panel (08/22/2024 1:41 AM EDT) Extra Sent for Culture 08/22/2024 3:01 AM EDT [facility] Urine Urine specimen obtained by clean catch procedure / Unknown Non-blood Collection / Unknown 08/22/2024 1:41 AM EDT 08/22/2024 1:58 AM EDT us Jay Salvador MD LAB URINE ORDERABLES Final Re sult Performing Organization Address [facility] Co de Phone Number [facility] [address] [place] [address] * Urinalysis Microscopic Examination (08/22/2024 1:41 AM EDT) Urine Urine specimen obtained by clean catch procedure / Unknown Non-blood Collection / Unknown 08/22/2024 1:41 AM EDT 08/22/2024 1:52 AM EDT us Jay Salvador MD LAB URINE ORDERABLES Final Re sult Performing Organization Address [facility] de Phone Number [facility] [address] [place] [address] * (ABNORMAL) Urinalysis with reflex microscopic (Culture NOT Included) (08/22/2024 1:41 AM EDT) Color, Urine Red LAB URINALYSIS - AUTOMATED METHOD 08/22/2024 2:37 AM EDT [facility] Clarity, Urine Cloudy LAB URINALYSIS - AUTOMATED METHOD 08/22/2024 2:37 AM EDT [facility] Spec [place], Urine 1.015 1.005 - 1.030 LAB URINALYSIS - AUTOMATED METHOD 08/22/2024 2:37 AM EDT [facility] pH, Urine 6.5 5.0 - 8.0 LAB URINALYSIS - AUTOMATED METHOD 08/22/2024 2:37 AM EDT [facility] Protein, Urine >=300(A) Negative mg/dL LAB URINALYSIS - AUTOMATED METHOD 08/22/2024 2:37 AM EDT [facility] Glucose, Urine 100(A) Negative mg/dL LAB URINALYSIS - AUTOMATED METHOD 08/22/2024 2:37 AM EDT [facility] Ketones, Urine 15(A) Negative mg/dL LAB URINALYSIS - AUTOMATED METHOD 08/22/2024 2:37 AM EDT [facility] Blood, Urine Large(A) Negative LAB URINALYSIS - AUTOMATED METHOD 08/22/2024 2:37 AM EDT [facility] Bilirubin, Urine Large(A) Negative LAB URINALYSIS - AUTOMATED METHOD 08/22/2024 2:37 AM EDT [facility] Urobilinogen, Urine >=8.0(A) 0.2 to 1.0 mg/dL LAB URINALYSIS - AUTOMATED METHOD 08/22/2024 2:37 AM EDT [facility] Leukocytes, Urine Large(A) Negative LAB URINALYSIS - AUTOMATED METHOD 08/22/2024 2:37 AM EDT [facility] Nitrite, Urine Positive(A) Negative LAB URINALYSIS - AUTOMATED METHOD 08/22/2024 2:37 AM EDT [facility] RBC, Urine >50(A) 0 to 3 /HPF 08/22/2024 2:37 AM EDT [facility] Comment:This result was prev iously suppressed from the chart. WBC, Urine Unable to estimate due to obscuring RBC's (UNERBC) 0 to 5 /HPF 08/22/2024 2:37 AM EDT [facility] Comment:This result was prev iously suppressed from the chart. Squamous Epithelial Cells Unable to estimate due to obscuring RBC's (UNERBC) 0 to 5 /HPF 08/22/2024 2:37 AM EDT [facility] Comment:This result was prev iously suppressed from the chart. Hyaline Casts Unable to estimate due to obscuring RBC's (UNERBC) 0 to 5 /LPF 08/22/2024 2:37 AM EDT [facility] Comment:This result was prev iously suppressed from the chart. Bacteria, Urine Present Negative 08/22/2024 2:37 AM EDT [facility] Comment:This result was prev iously suppressed from the chart. Urine Urine specimen obtained by clean catch procedure / Unknown Non-blood Collection / Unknown 08/22/2024 1:41 AM EDT 08/22/2024 1:52 AM EDT Narrative [facility] - 08/22/2024 2:37 AM EDT Urinalysis dipstick results may be inaccurate due to specimen color or an interfering substance in the specimen. Performed by manual method us Jay Salvador MD LAB URINE ORDERABLES Final Re sult Performing Organization Address City/[facility]/ZIP Co de Phone Number [facility] [address] [place] [address] * (ABNORMAL) Urine Culture (08/22/2024 1:41 AM EDT) Pathologist [facility] Culture <10,000 CFU/mL Staphylococcus coagulase negative(A) 08/23/2024 8:16 AM EDT [facility] Urine Urine specimen obtained by clean catch procedure / Unknown Non-blood Collection / Unknown 08/22/2024 1:41 AM EDT 08/22/2024 1:58 AM EDT us Jay Salvador MD LAB MICROBIOLOGY - GENERAL OR DERABLES Final Result Performing Organization Address [facility]/ZIP Co de Phone Number [facility] [address] [place] [address] * ED HIV 1/2 Antibody/Antigen Screen w/Reflex to HIV 1/2 Differentiation (08/22/2024 1:26 AM EDT) HIV 1 & 2 Antibody/Antigen Screen Non Reactive Non Reactive 08/22/2024 2:15 AM EDT [facility] Comment:Screening for HIV 1 & 2 antibodies, and P24 antigen is NONREACTIVE. No confirmatory testing is required. Blood Venous blood specimen / Unknown Venipuncture / Unknown 08/22/2024 1:26 AM EDT 08/22/2024 1:34 AM EDT us Jay Salvador MD LAB BLOOD ORDERABLES Final Re sult Performing Organization Address [facility] Co de Phone Number [facility] [address] [place] [address] * Hepatitis C Antibody - ED (08/22/2024 1:26 AM EDT) Hepatitis C Antibody Negative Negative 08/22/2024 2:15 AM EDT [facility] Blood Venous blood specimen / Unknown Venipuncture / Unknown 08/22/2024 1:26 AM EDT 08/22/2024 1:34 AM EDT Jay Salvador MD LAB BLOOD ORDERABLES Final Re sult Performing Organization Address [facility] de Phone Number [facility] [address] [place] [address] * PT-INR (08/22/2024 1:26 AM EDT) Pathologist [facility] Prothrombin Time 12.8 12.0 - 14.3 sec 08/22/2024 1:58 AM EDT [facility] INR 1.0 0.9 - 1.1 08/22/2024 1:58 AM EDT [facility] Blood Venous blood specimen / Unknown Venipuncture / Unknown 08/22/2024 1:26 AM EDT 08/22/2024 1:33 AM EDT Narrative [facility] - 08/22/2024 1:58 AM EDT OPTIMAL INR RANGES FOR PATIENT ON ORAL ANTICOAGULANT THERAPY Prevention of venous thromboembolism INR 2.0 to 3.0 In patients with heart disease: Atrial fibrillation INR 2.0 to 3.0 Valvular heart disease INR 2.0 to 3.0 Tissue heart valves INR 2.0 to 3.0 Mechanical prosthetic valves INR 2.5 to 3.5 Prevention of recurrent IL INR 2.5 to 3.5 us Jay Salvador MD LAB BLOOD ORDERABLES Final Re sult [facility] [address] [place] [address] * (ABNORMAL) CBC w/diff (08/22/2024 1:26 AM EDT) WBC Count 9.33 3.70 - 10.30 10*3/uL LAB HEMATOLOGY METHOD 08/22/2024 1:35 AM EDT [facility] RBC Count 4.39(L) 4.60 - 6.10 10*6/uL LAB HEMATOLOGY METHOD 08/22/2024 1:35 AM EDT [facility] HGB 12.9(L) 13.7 - 17.5 g/dL LAB HEMATOLOGY METHOD 08/22/2024 1:35 AM EDT [facility] HCT 40.1 40.0 - 51.0 % LAB HEMATOLOGY METHOD 08/22/2024 1:35 AM EDT [facility] Platelet Count 352 155 - 369 10*3/uL LAB HEMATOLOGY METHOD 08/22/2024 1:35 AM EDT [facility] MCV 91 79 - 98 fL LAB HEMATOLOGY METHOD 08/22/2024 1:35 AM EDT [facility] MCH 29.4 26.0 - 32.0 pg LAB HEMATOLOGY METHOD 08/22/2024 1:35 AM EDT [facility] MCHC 32.2 30.7 - 35.5 g/dL LAB HEMATOLOGY METHOD 08/22/2024 1:35 AM EDT [facility] RDW 15.0(H) 11.5 - 14.5 % LAB HEMATOLOGY METHOD 08/22/2024 1:35 AM EDT [facility] MPV 9.9 8.8 - 12.5 fL LAB HEMATOLOGY METHOD 08/22/2024 1:35 AM EDT [facility] nRBC 0.0 <=0.0 per 100 WBCs LAB HEMATOLOGY METHOD 08/22/2024 1:35 AM EDT [facility] Differential Type Automated LAB HEMATOLOGY METHOD 08/22/2024 1:35 AM EDT [facility] Neutrophils % 66 % LAB HEMATOLOGY METHOD 08/22/2024 1:35 AM EDT [facility] Lymphocytes % 21 % LAB HEMATOLOGY METHOD 08/22/2024 1:35 AM EDT [facility] Monocytes % 11 % LAB HEMATOLOGY METHOD 08/22/2024 1:35 AM EDT [facility] Eosinophils % 1 % LAB HEMATOLOGY METHOD 08/22/2024 1:35 AM EDT [facility] Basophils % 0 % LAB HEMATOLOGY METHOD 08/22/2024 1:35 AM EDT [facility] Immature Granulocytes % 1 % LAB HEMATOLOGY METHOD 08/22/2024 1:35 AM EDT [facility] Neutrophils Absolute 6.13(H) 1.60 - 6.10 10*3/uL LAB HEMATOLOGY METHOD 08/22/2024 1:35 AM EDT [facility] Lymphocytes Absolute 1.97 1.20 - 3.90 10*3/uL LAB HEMATOLOGY METHOD 08/22/2024 1:35 AM EDT [facility] Monocytes Absolute 1.01(H) 0.30 - 0.90 10*3/uL LAB HEMATOLOGY METHOD 08/22/2024 1:35 AM EDT [facility] Eosinophils Absolute 0.12 0.00 - 0.50 10*3/uL LAB HEMATOLOGY METHOD 08/22/2024 1:35 AM EDT [facility] Basophils Absolute 0.04 0.00 - 0.10 10*3/uL LAB HEMATOLOGY METHOD 08/22/2024 1:35 AM EDT [facility] Immature Granulocytes Absolute 0.06 0.00 - 0.06 10*3/uL LAB HEMATOLOGY METHOD 08/22/2024 1:35 AM EDT [facility] Blood Venous blood specimen / Unknown Venipuncture / Unknown 08/22/2024 1:26 AM EDT 08/22/2024 1:33 AM EDT [facility] - 08/22/2024 1:35 AM EDT Therapeutic decision making should be based on absolute values, rather than percentages. us Jay Salvador MD LAB BLOOD ORDERABLES Final Re sult [facility] [address] [place] [address] * Type and screen (08/22/2024 1:26 AM [...] ORDERABLE S Final Result BLOOD BANK [address] [place] [address], [place] * (ABNORMAL) CMP (08/22/2024 1:26 AM EDT) Glucose, Plasma 93 74 - 99 mg/dL 08/22/2024 2:07 AM EDT [facility] BUN, Plasma 18 8 - 23 mg/dL 08/22/2024 2:07 AM EDT [facility] Creatinine, Plasma 1.27(H) 0.70 - 1.20 mg/dL 08/22/2024 2:07 AM EDT [facility] BUN/Creatinine Ratio 14 08/22/2024 2:07 AM EDT [facility] Sodium, Plasma 142 136 - 145 mmol/L 08/22/2024 2:07 AM EDT [facility] Potassium, Plasma 4.2 3.6 - 4.9 mmol/L 08/22/2024 2:07 AM EDT [facility] Chloride, Plasma 107 97 - 107 mmol/L 08/22/2024 2:07 AM EDT [facility] CO2, Plasma 21(L) 22 - 29 mmol/L 08/22/2024 2:07 AM EDT [facility] Anion Gap 14 6 - 16 mmol/L 08/22/2024 2:07 AM EDT [facility] Total Calcium, Plasma 9.2 8.9 - 10.2 mg/dL 08/22/2024 2:07 AM EDT [facility] Total Protein 6.7 6.3 - 7.9 g/dL 08/22/2024 2:07 AM EDT [facility] Albumin, Plasma 3.8 3.5 - 5.2 g/dL 08/22/2024 2:07 AM EDT [facility] AST, Plasma 21 10 - 50 U/L 08/22/2024 2:07 AM EDT [facility] ALT, Plasma 19 10 - 50 U/L 08/22/2024 2:07 AM EDT [facility] Alkaline Phosphatase, Plasma 91 40 - 115 U/L 08/22/2024 2:07 AM EDT [facility] Total Bilirubin, Plasma 0.3 0.2 - 1.1 mg/dL 08/22/2024 2:07 AM EDT [facility] eGFRcr 56.1 mL/min/1.7 3m*2 08/22/2024 2:07 AM EDT [facility] Comment:Reported eGFRcr in m L/min/1.73m2 is based the CKD-EPI 2020 equation that does not use a race coefficient. Blood Venous blood specimen / Unknown Venipuncture / Unknown 08/22/2024 1:26 AM EDT 08/22/2024 1:33 AM EDT us Jay Salvador MD LAB BLOOD ORDERABLES Final Re sult [facility] [address] [place] [address] * POC Imaging (08/22/2024) Anatomical Region Laterality Modality Pelvis Other 08/22/2024 us External Provider IMG POINT OF CARE ULTRASOUND F inal Result * [facility]- UROLOGY (08/11/2024 2:08 PM EDT) Narrative Ben Harman MD - 08/11/2024 2:08 PM EDT Ben Harman MD 08/28/2024 3:03 PM Cysto- Urology Date/Time: 08/11/2024 2:08 PM Performed by: Ben Harman MD Authorized by: Ben Harman MD Procedure discussed: discussed risks, benefits and alternatives Drill Operator present: yes Timeout: timeout called immediately prior [...] given Disposition: discharged home in satisfactory condition Ben Harman MD UROLOGY ORDERABLES Final Re sult from Last 3 Months Insurance [employer] MEDICARE Advance Directives * Full Code (Latest Code Status on File) Date Activated Date Inactivated Comments 08/22/2024 4:19 PM 08/23/2024 6:07 PM Question Answer Comments I have reviewed the capacity from the link above and, if needed, have updated to appropriate status: Yes Care Teams Circulation Tender Relationship Specialty Start Date End Date Ronny Belle MD [address] [place] [id number] PCP - General 07/01/24
--- OUTSIDE RECORDS SUMMARY | 2024-10-13 13:22 | XMS_ITS | Clinical Summary ---
Author Organization [facility] [place] [address] Care Team Providers Care Hand Plug Shaper Name Role Phone Unavailable Primary Care Provider Unavailabl e Social History Tobacco Use Types Packs/Day Years Used Date Smoking Tobacco: Never Assessed Sex and Gender Information Value Date Recorded Sex Assigned at Not on file Legal Sex Male 3:41 AM EDT Gender Identity Not on file Sexual Orientation Not on file Plan of Treatment Health Maintenance Due Date Last Done Comments Annual Wellness Exam 10/29/1943 DTaP/TDaP/Td (1 - Tdap) 10/29/1959 Pneumococcal Vaccine 50+ (1 of 1 - PCV) 1990 Zoster (1 of 2) 1990 RSV or 60+ (1 - 1-d ose 75+ series) 10/29/2015 COVID-19 Vaccine ( - 2023-2 5 season) 2023 Influenza Vaccine (#1) 2024 Hepatitis B Vaccine Aged Out No longe r eligible based on patient's age to complete this topic Meningococcal B Vaccine Aged Out No l onger eligible based on patient's age to complete this topic
--- OUTSIDE RECORDS SUMMARY | 2024-10-13 13:22 | XMS_ITS | Encounter Summary ---
Author Organization Healthcare Address [address] [place] [address] Care Team Providers Care Coremaker Experimental Name Role Phone Ronny Belle MD Primary Care Provider [phone] Encounter Details Date Type Department Care Team (Late st Contact Info) Description 08/26/2024 Telephone [facility] [address] [place] [address] Ben Harman MD [address] [place] [address] Social History Tobacco Use Types [...] drink first t herminio in the morning (EYE-PROPERTY DISPOSAL OFFICER) to steady your nerves or to get rid of a hangover? 0 08/22/2024 CAGE Questionnaire Score 0 05/16/2 025 Sex and Gender Information Value Date Recorded Sex Assigned at Male 08/22/2024 8:21 AM EDT Legal Sex Male 2:04 PM EDT Gender Identity Not on file Sexual Orientation Not on file documented as of this encounter Functional Status * Over the [...] encounter Miscellaneous Notes * Telephone Encounter - Robyn Ferguson RN - 08/26/2024 8:26 AM EDT Patient had TURBT/TURP w/ Dr. Harman 08/22/24. Spoke with patient's daughter, Lia, who states patient removed catheter 08/25/24 as instructed per discharge notes but has only urinated small amounts since then, voiding about every 30 minutes, despite drinking plenty of fluids. Patient denies blood in the urine, feeling uncomfortably full of urine, or noting any distension to abdomen. Spoke w/ APPs in the clinic who recommended patient be evaluated either in the clinic or at a local ED. Daughterstates she would like to bring patient in to be evaluated in the clinic. Nurse visit added for 1100. Address for [facility] parking garage and instructions for how to get to the clinic from the garage provided. documented in this encounter Plan of Treatment Upcoming Encounters Date Type Department Care Team (Late st Contact Info) Description 12/09/2024 1:40 PM EDT Office Visit [facility] Urology [address] [place] [address] Carrie James PA [address] [place] [address] documented as of this encounter Visit Diagnoses Not on filedocumented in this encounter Additional Health Concerns Assessment Noted Time A fall risk assessment has been complete d for the patient 08/11/2024 10:45 AM EDT A Body Mass Index follow-up plan has been documented for the patient 08/23/2024 2:19 PM EDT documented as of this encounter Care Teams Coremaker Experimental Relationship Specialty Start Date End Date Ronny Belle MD [address] [place] [address] PCP - General 07/01/24 documented as of this encounter
--- OUTSIDE RECORDS SUMMARY | 2024-10-13 13:22 | XMS_ITS | Encounter Summary ---
Author Organization Healthcare Address [address] [place] [address] Care Team Providers Care Frame Coverer Name Role Phone Ronny Belle MD Primary Care Provider [phone] Encounter Details Date Type Department Care Team (Late st Contact Info) Description 06/09/2024 Orders Only External Location [address] [place] [address] Provider, External Social History Tobacco Use Types [...] Description 12/09/2024 1:40 PM EDT Office Visit [facility] [address] [place] [address] Carrie James PA [address] [place] [address] documented as of this encounter Procedures Procedure Name Priority Date/Time Associated Diagnosis Comments CT ABDOMEN OUTSIDE IMAGES 06/09/2024 5:56 PM EST documented in this encounter Results * CT ABDOMEN OUTSIDE IMAGES (06/09/2024 5:56 PM EST) Anatomical Region Laterality Modality Computed Tomogra phy 06/09/2024 5:56 PM EST us External Provider IMG CT PROCEDURES Final Result documented in this encounter Visit Diagnoses Not on filedocumented in this encounter Care Teams Frame Coverer Relationship Specialty Start Date End Date Ronny Belle MD [facility] [place] [address] PCP - General 07/01/24 documented as of this encounter
--- OUTSIDE RECORDS SUMMARY | 2024-10-13 13:22 | XMS_ITS | Encounter Summary ---
Author Organization Healthcare Address [address] [place] [address] Care Team Providers Care Blood Bank Calendar Control Clerk Name Role Phone Ronny Belle MD Primary Care Provider [phone] Encounter Details Date Type Department Care Team (Latest Contact Info) Description 09/02/2024 Travel Social History Tobacco Use Types Packs/Day Years Used Date Smoking Tobacco: Former Cigarettes 3 [phone] - 2021 Smokeless Tobacco: Never Alcohol Use [...] drink first t herminio in the morning (EYE-PRINTED CIRCUIT BOARDS LAMINATOR) to steady your nerves or to get [...] Ferguson RN documented as of this encounter Plan of Treatment Upcoming Encounters Date Type Department Care Team (Late st Contact Info) Description 12/09/2024 1:40 PM EDT Office Visit [facility] [address] [place] [address] Carrie James PA [address] [place] [address] documented as of this encounter Visit Diagnoses Not on filedocumented in this encounter Additional Health Concerns Assessment Noted Time A fall risk assessment has been complete d for the patient 09/02/2024 1:40 PM EDT A Body Mass Index follow-up plan has been documented for the patient 09/02/2024 3:48 PM EDT documented as of this encounter Care Teams Blood Bank Calendar Control Clerk Relationship Specialty Start Date End Date Ronny Belle MD [address] [place] [address] PCP - General 07/01/24 documented as of this encounter
[2024-10-13 13:53] LABS: Hematocrit 35.5 % (42.0-52.0); Hemoglobin 11.3 g/dL (14.1-18.0); Immature Granulocytes % 1.3 %; Mean Corpuscular HGB Conc 31.8 g/dL (31.8-35.4); Mean Corpuscular Hemoglobin 28.8 pg (27.0-31.2); Mean Corpuscular Volume 90.6 fl (80-94); Nucleated Red Blood Cells % 0 %; Platelet Count 456 K/mm3 (142-424); Red Blood Count 3.92 M/mm3 (4.60-6.20); Red Cell Distribution Width-SD 48.1 fL; White Blood Count 13.6 K/mm3 (4.8-10.8)
[2024-10-13 14:29] LABS: Alanine Aminotransferase 50 U/L (12-78); Albumin Level 3.2 g/dl (3.5-5.0); Albumin/Globulin Ratio 1.1 (1.1-1.8); Alkaline Phosphatase 97 U/L (38-126); Anion Gap 18.2 mEq/L (5-15); Aspartate Amino Transferase 63 U/L (17-59); Bilirubin,Total 0.3 mg/dl (0.2-1.3); Blood Urea Nitrogen 23 mg/dl (9-20); Calcium 8.5 mg/dl (8.4-10.2); Carbon Dioxide 24 mmol/L (22.0-30.0); Chloride 99 mmol/L (98-107); Creatinine,Serum 1.40 mg/dl (0.66-1.25); Estimated Glomerular Filt Rate 48 ml/min (>60); GFR (African American) 59 ML/MIN (>60); Globulin 2.8 g/dL (1.3-3.2); Glucose 119 mg/dl (74-100); Potassium 5.2 mmoL/L (3.5-5.1); Sodium 136 mmol/L (136-145); Total Protein,Serum 6.0 g/dl (6.3-8.2)
[2024-10-13 14:38] LABS: NT Pro Brain Natriuretic Pep. 589 pg/mL (0-450)
== END 2024-10-13 23:59 | disposition home or self-care (01) ==
LOC: LAB 13:20
PROVIDERS: PCP Nurse Practitioner; Visit Provider Nurse Practitioner
DX: R60.0 Localized edema (principal); R05.9 Cough, unspecified; M79.89 Other specified soft tissue disorders
CPT/HCPCS: 36415; 71046; 80053; 83880; 85025; 87086

== ENCOUNTER 2024-10-16 09:21 | Observation (INO) | payer MEDICARE, SELFPAY ==
--- OUTSIDE RECORDS SUMMARY | 2024-08-11 11:15 | XMS_ITS | Encounter Summary ---
Author Organization Healthcare Address [address] [place] [address] Care Team Providers Care Curator Of Photography And Prints Name Role Phone Ronny Belle MD Primary Care Provider Reason for Referral * (Routine) - Incomplete Specialty Diagnoses / Procedures Referred By Contarlin t Referred To Contact Diagnoses Prostate mass Procedures Cysto- Urology Ben Harman MD [address] [address] Phone: tel: fax: Referral ID Status Reason Start Date Expiration Date V isits Requested Visits Authorized [id number] Incomplete 08/11/2024 02/10/2026 1 1 Reason for Visit * Reason Comments Advice Only Encounter Details Date Type Department Care Team ([facility] Contact Info) Description 08/11/2024 11:15 AM EDT Consult Medical Office Building Urology [address], [address] [place] [address] Ben Harman MD [id number] [place] [address] Prostate mass (Primary Dx) Social [...] Have you had a drink first t herminio in the morning (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 [facility] Review of Systems: A complete 14 point [...] Procedure discussed: discussed risks, benefits and alternatives District Attorney present: yes Timeout: timeout called immediately prior [...] Description 12/09/2024 1:40 PM EDT Office Visit [facility] [address] [place] [address] Carrie James PA [address] [place] [address] documented as of this encounter [...] Procedure discussed: discussed risks, benefits and alternatives District Attorney present: yes Timeout: timeout called immediately prior [...] documented as of this encounter Care Teams Curator Of Photography And Prints Relationship Specialty Start Date End Date Ronny Belle MD [id number] PCP - General 07/01/24 documented as of this encounter
--- OUTSIDE RECORDS SUMMARY | 2024-08-21 23:48 | XMS_ITS | Encounter Summary ---
Author Organization Healthcare Address [address] [place] [address] Care Team Providers Care Manager Regional Sales Name Role Phone Ronny Belle MD Primary Care Provider [phone] Reason for Visit * Reason Comments Hematuria * Auth/Cert (Routine) Specialty Diagnoses / Procedures Referred By Contac t Referred To Contact Diagnoses Urinary retention Acute UTI (urinary tract infection) Hematuria, unspecified type Gross hematuria Ben Harman MD [address] [facility] [address] [place] [address] Phone: tel: fax: [facility] [address] [place] [address] Phone: tel: Referral ID Status Reason Start Date Expiration Date Visits Re quested Visits Authorized [id number] 1 1 Encounter Details Date Type Department Care Team (Late st Contact Info) Description 08/21/2024 11:48 PM EDT - 08/23/2024 4:02 PM EDT Hospital Encounter [facility] [address] [place] [address] Jay Salvador MD [address] [place] [address] Luciano Amador MD [address] [place] [address] Kyaw Malik MD [address] [place] [address] Ben Harman MD [address] [facility] [place] [id number] Hematuria, unspecified type (Primary Dx); Urinary retention; [...] drink first t herminio in the morning (EYE-ACCOUNTS PAYABLE COORDINATOR) to steady your nerves or to get [...] 1 Month) No 08/23/2024 6:00 AM EDT Mciha Alcazar 6. Suicidal Behavior (Lifetime) No 6:00 [...] confirm your location ahead of your appointment) [facility] Urology Department Clinic at [facility] [address], [address], [address] [place] [address] Clinic After Hours [facility] Medical Office Building Urology Clinic [address] [place] [address] Clinic After Hours [facility] Multidisciplinary Urology Clinic [address] 1st [place] [address] Clinic documented in this encounter Medications at Time of Discharge acetaminophen (Tylenol) 325 MG tablet Take 2 tablets by mouth every 6 hours as needed for headaches, pain or fever. Under [place] law, monthly prescriptions (30 days) can be [...] from the original note were not included. [id number] Transurethral Resection of the Prostate (TURP): Home [...] Check with your healthcare provider before taking evud-ihn-yranbzs pain relievers. These includeaspirin, ibuprofen, and naproxen. [...] heal. Last Reviewed Date: 2022 00:00:00 ?? [id number] [employer]. All rights reserved. This information is not intended as a substitute for professional medical care. Always follow your healthcare professional's instructions. * [facility] Shahzad Barrett RN - 08/23/2024 2:17 [...] PCP name and Address: Ronny Belle MD [address] [place] [address] Referring provider name and address: No referring [...] needed for headaches, pain or fever. Under [place] law, monthly prescriptions (30 days) can be [...] Ellipta 200-62.5-25 MCG/ACT aerosol powder Generic drug: Cbecntafhiq-Gbrulxkxg-Lqqjtw inhale one (1) puff daily Where to Get Your Medications These medications were sent to [facility] [place], [place] - [address] [facility] [address] acetaminophen 325 MG tablet sulfamethoxazole-trimethoprim 800-160 MG [...] confirm your location ahead of your appointment) [facility] Urology Department Clinic at [facility] [address] [facility] [address] [facility] [place] [address] Clinic After Hours [facility] Medical Office Building Urology Clinic [address] [facility] [place] [address] Clinic After Hours [facility] Multidisciplinary Urology Clinic [address] [facility] 1st [place] [address] Clinic Outpatient Follow-Up Future Appointments Date Time Provider Department Center 08/27/2024 11:00 AM [facility] Test Results Pending At Discharge Pending [...] Agree with above assessment and evaluation from resident/SHOE SPRAYER. * Op Note - Ben Harman MD - 08/22/2024 12:36 PM EDT PATIENT NAME: Celestino Lundy : 1940 DATE OF SURGERY: 08/22/24 PROCEDURES PERFORMED: Transurethral resection of prostate PREOPERATIVE DIAGNOSIS: BPH and gross hematuria POSTOPERATIVE DIAGNOSIS: Same SURGEON: Ben Harman MD SCCM ADMINISTRATOR SURGEON(S): Luciano Patricia DO INTRAOPERATIVE FINDINGS: 1) [...] the start of the case. The 26 Austrian resectoscope was inserted into the patient's bladder per urethra. Cystoscopy revealeda mildly trabeculated bladder with some clots in the bladder. Clots were evacuated with a Tumey syringe. There was massive regrowth of his prostate with visual obstruction. Bilateral ureteral orifices were noted in their correct orthotopic position. There were no bladder masses. A thick bipolar prostate loop was then attached to the Parmar working element. Resection began atthe median lobe. [...] Patricia DO PGY-3, Department of Urology Pager: [phone] * Progress Notes - Anthony Mohr DO [...] Patricia DO PGY-3, Department of Urology Pager: [phone] * H&P - FaniAnthony, DO - 08/22/2024 [...] into the bladder and advanced a 22 Austrian Roz three-way catheter over the wire with [...] into the bladder and advanced a 22 Austrian Roz three-way catheter over the wire with [...] Patricia DO PGY-3, Department of Urology Pager: [phone] * ED Notes - Rodriguez Ferrer - 08/22/2024 4:42 AM EDT Assumed care of pt at this time. Pt is AAOX4, on CCM, VS stable and WNL. Pt denies pain at this time. Urinal placed at bedside, explained plan of care. All questions answered. Side rails up x2, call light within reach. No needs expressed/identified at this time. Family member at [facility]. Rodriguez Ferrer 08/22/24 0452 * ED Notes - Maria Victoria Wong MD - 08/22/2024 4:11 AM EDT 49/urology Maria Victoria Wong MD Resident 08/22/24 0411 * Consults - Tre Maldonado MD - 08/22/2024 2:55 AM EDTAssociated Order(s): Consult to Urology Consult to Urology Consult performed by: Tre Maldonado MD Consult ordered by: Jay Salvador MD Reason for consult: hematuria concern for clot retention [facility] Urology Consult Note 08/22/24 Service Requesting [...] for questions and concerns. Please notify urology truer pinion and wheel of PVRs. Tre Maldonado MD [1] Past [...] and time. EASI ?? Total Score: 0 [place] Coma Scale Score: 15 ED Course & [...] patient was was signed out to the [facility] (Signed Out) Patient care assumed by [facility], Martínez, at shift change, tentative plan [...] Description 12/09/2024 1:40 PM EDT Office Visit [facility] Urology [address] [place] [address] Carrie James PA [address] [place] [address] documented as of this encounter [...] LAB HEMATOLOGY METHOD 08/23/2024 4:32 AM EDT [facility] RBC Count 4.13(L) 4.60 - 6.10 10*6/uL LAB HEMATOLOGY METHOD 08/23/2024 4:32 AM EDT [facility] HGB 12.1(L) 13.7 - 17.5 g/dL LAB HEMATOLOGY METHOD 08/23/2024 4:32 AM EDT [facility] HCT 37.0(L) 40.0 - 51.0 % LAB HEMATOLOGY METHOD 08/23/2024 4:32 AM EDT [facility] Platelet Count 365 155 - 369 10*3/uL LAB HEMATOLOGY METHOD 08/23/2024 4:32 AM EDT [facility] MCV 90 79 - 98 fL LAB HEMATOLOGY METHOD 08/23/2024 4:32 AM EDT [facility] MCH 29.3 26.0 - 32.0 pg LAB HEMATOLOGY METHOD 08/23/2024 4:32 AM EDT [facility] MCHC 32.7 30.7 - 35.5 g/dL LAB HEMATOLOGY METHOD 08/23/2024 4:32 AM EDT [facility] RDW 14.9(H) 11.5 - 14.5 % LAB HEMATOLOGY METHOD 08/23/2024 4:32 AM EDT [facility] MPV 9.8 8.8 - 12.5 fL LAB HEMATOLOGY METHOD 08/23/2024 4:32 AM EDT [facility] nRBC 0.0 <=0.0 per 100 WBCs LAB HEMATOLOGY METHOD 08/23/2024 4:32 AM EDT [facility] Blood Venous blood specimen / Unknown Venipuncture / Unknown 08/23/2024 4:12 AM EDT 08/23/2024 4:21 AM EDT us Ben Harman MD LAB BLOOD ORDERABLES Final Result [facility] [address] [place] [address] * (ABNORMAL) Basic Metabolic Panel, Plasma (08/23/2024 4:12 AM EDT) Glucose, Plasma 105(H) 74 - 99 mg/dL 08/23/2024 4:52 AM EDT [facility] BUN, Plasma 13 8 - 23 mg/dL 08/23/2024 4:52 AM EDT [facility] Creatinine, Plasma 1.13 0.70 - 1.20 mg/dL 08/23/2024 4:52 AM EDT [facility] BUN/Creatinine Ratio 12 08/23/2024 4:52 AM EDT [facility] Sodium, Plasma 139 136 - 145 mmol/L 08/23/2024 4:52 AM EDT [facility] Potassium, Plasma 4.7 3.6 - 4.9 mmol/L 08/23/2024 4:52 AM EDT [facility] Chloride, Plasma 107 97 - 107 mmol/L 08/23/2024 4:52 AM EDT [facility] CO2, Plasma 21(L) 22 - 29 mmol/L 08/23/2024 4:52 AM EDT [facility] Anion Gap 11 6 - 16 mmol/L 08/23/2024 4:52 AM EDT [facility] Total Calcium, Plasma 8.5(L) 8.9 - 10.2 mg/dL 08/23/2024 4:52 AM EDT [facility] eGFRcr 64.5 mL/min/1.7 3m*2 08/23/2024 4:52 AM EDT [facility] Comment:Reported eGFRcr in m L/min/1.73m2 is based the CKD-EPI 2020 equation that does not use a race coefficient. Blood Venous blood specimen / Unknown Venipuncture / Unknown 08/23/2024 4:12 AM EDT 08/23/2024 4:22 AM EDT us Ben Harman MD LAB BLOOD ORDERABLES Final Result [facility] [address] [place] [address] * Surgical Pathology Exam (08/22/2024 1:41 PM EDT) Case Report Surgical Pathology Case: [id number] Authorizing Provider: Ben Harman MD Collected: 08/22/2024 1341 Ordering Location: [facility] OPERATING ROOM Received: 08/22/2024 1431 Pathologist: Bola Harrison MD Specimen: Prostate, Prostate Chips 08/26/2024 1:43 PM EDT [facility] Final Diagnosis PROSTATE, TRANSURETHRAL RESECTION OF PROSTATE: - PROSTATIC STROMAL AND GLANDULAR HYPERPLASIA - ACUTE PROSTATITIS 08/26/2024 1:43 PM EDT [facility] at 1343 EDT Clinical Information Hematuria, unspecified type [R31.9] Urinary retention [R33.9] 08/26/2024 1:43 PM EDT [facility] Gross Description A. PROSTATE CHIPS Received in formalin labeled prostate chips are multiple pieces of pink-cherry soft tissue admixed with red-brown hemorrhagic material measuring 9.0 x 6.0 x 0.8 cm in aggregate and weighing 23.8 g. Technical Operations Specialist sections are submitted in cassettes A1-A8. Cold Time: 10m Ciarra Gallegos 08/26/2024 1:43 PM EDT [facility] Note: A resident was involved in the service. I attest I examined the relevant preparations for the specimens and confirmed the diagnosis or interpretation. 08/26/2024 1:43 PM EDT [facility] Tissue Prostate / Unknown 08/22/2024 1:41 PM EDT 08/22/2024 2:31 PM EDT Comment:Pre-op diagnosis: Hematuria, unspecified type [R31.9] Urinary retention [R33.9] us Ben Harman MD LAB PATHOLOGY ORDERABLES Fi nal Result [facility] [address] [place] [address] * CT Angio Abdomen Pelvis (08/22/2024 5:12 [...] ORDERABLES Final Re sult Performing Organization Address [facility] [place] [address] * (ABNORMAL) Urine Culture (08/22/2024 1:41 AM EDT) Culture <10,000 CFU/mL Staphylococcus coagulase negative(A) 08/23/2024 8:16 AM EDT [facility] Urine Urine specimen obtained by clean catch procedure / Unknown Non-blood Collection / Unknown 08/22/2024 1:41 AM EDT 08/22/2024 1:58 AM EDT us Jay Salvador MD LAB MICROBIOLOGY - GENERAL OR DERABLES Final Result Performing Organization Address City/[facility] [place] [address] * Urinalysis Microscopic Examination (08/22/2024 1:41 AM EDT) Urine Urine specimen obtained by clean catch procedure / Unknown Non-blood Collection / Unknown 08/22/2024 1:41 AM EDT 08/22/2024 1:52 AM EDT Result Thuy Salvador MD LAB URINE ORDERABLES Final Re sult Performing Organization Address City/[facility] Co de Phone Number [facility] [address] [place] [address] * Urine Fischer Panel (08/22/2024 1:41 AM EDT) Extra Sent for Culture 08/22/2024 3:[address] [facility] Urine Urine specimen obtained by clean catch procedure / Unknown Non-blood Collection / Unknown 08/22/2024 1:41 AM EDT 08/22/2024 1:58 AM EDT us Jay Salvador MD LAB URINE ORDERABLES Final Re sult [facility] [address] [place] [address] * (ABNORMAL) Urinalysis with reflex microscopic (Culture NOT Included) (08/22/2024 1:41 AM EDT) Color, Urine Red LAB URINALYSIS - AUTOMATED METHOD 08/22/2024 2:37 AM EDT [facility] Clarity, Urine Cloudy LAB URINALYSIS - AUTOMATED METHOD 08/22/2024 2:37 AM EDT [facility] Spec [facility], Urine 1.015 1.005 - 1.030 LAB URINALYSIS - AUTOMATED METHOD 08/22/2024 2:37 AM EDT [facility] pH, Urine 6.5 5.0 - 8.0 LAB URINALYSIS - AUTOMATED METHOD 08/22/2024 2:37 AM EDT [facility] Protein, Urine >=300(A) Negative mg/dL LAB URINALYSIS - AUTOMATED METHOD 08/22/2024 2:37 AM EDT [facility] Glucose, Urine 100(A) Negative mg/dL LAB URINALYSIS - AUTOMATED METHOD 08/22/2024 2:37 AM EDT [facility] Ketones, Urine 15(A) Negative mg/dL LAB URINALYSIS - AUTOMATED METHOD 08/22/2024 2:37 AM EDT [facility] Blood, Urine Large(A) Negative LAB URINALYSIS - AUTOMATED METHOD 08/22/2024 2:37 AM EDT [facility] Bilirubin, Urine Large(A) Negative LAB URINALYSIS - AUTOMATED METHOD 08/22/2024 2:37 AM EDT [facility] Urobilinogen, Urine >=8.0(A) 0.2 to 1.0 mg/dL LAB URINALYSIS - AUTOMATED METHOD 08/22/2024 2:37 AM EDT [facility] Leukocytes, Urine Large(A) Negative LAB URINALYSIS - AUTOMATED METHOD 08/22/2024 2:37 AM EDT [facility] Nitrite, Urine Positive(A) Negative LAB URINALYSIS - AUTOMATED METHOD 08/22/2024 2:37 AM EDT [facility] RBC, Urine >50(A) 0 to 3 /HPF 08/22/2024 2:37 AM EDT [facility] Comment:This result was prev iously suppressed from the chart. WBC, Urine Unable to estimate due to obscuring RBC's (UNERBC) 0 to 5 /HPF 08/22/2024 2:37 AM EDT [facility] Comment:This result was prev iously suppressed from the chart. Squamous Epithelial Cells Unable to estimate due to obscuring RBC's (UNERBC) 0 to 5 /HPF 08/22/2024 2:37 AM EDT [facility] Comment:This result was prev iously suppressed from the chart. Hyaline Casts Unable to estimate due to obscuring RBC's (UNERBC) 0 to 5 /LPF 08/22/2024 2:37 AM EDT [facility] Comment:This result was prev iously suppressed from the chart. Bacteria, Urine Present Negative 08/22/2024 2:37 AM EDT [facility] Comment:This result was prev iously suppressed from the chart. Urine Urine specimen obtained by clean catch procedure / Unknown Non-blood Collection / Unknown 08/22/2024 1:41 AM EDT 08/22/2024 1:52 AM EDT Narrative [facility] - 08/22/2024 2:37 AM EDT Urinalysis dipstick results may be inaccurate due to specimen color or an interfering substance in the specimen. Performed by manual method us Jay Salvador MD LAB URINE ORDERABLES Final Re sult [facility] [address] [place] [address] * ED HIV 1/2 Antibody/Antigen Screen w/Reflex to HIV 1/2 Differentiation (08/22/2024 1:26 AM EDT) HIV 1 & 2 Antibody/Antigen Screen Non Reactive Non Reactive 08/22/2024 2:15 AM EDT [facility] Comment:Screening for HIV 1 & 2 antibodies, and P24 antigen is NONREACTIVE. No confirmatory testing is required. Blood Venous blood specimen / Unknown Venipuncture / Unknown 08/22/2024 1:26 AM EDT 08/22/2024 1:34 AM EDT us Jay Salvador MD LAB BLOOD ORDERABLES Final Re sult Performing Organization Address [facility] Co de Phone Number [facility] [address] [place] [address] * Hepatitis C Antibody - ED (08/22/2024 1:26 AM EDT) Pathologist [facility] Hepatitis C Antibody Negative Negative 08/22/2024 2:[address] [facility] Blood Venous blood specimen / Unknown Venipuncture / Unknown 08/22/2024 1:26 AM EDT 08/22/2024 1:34 AM EDT us Jay Salvador MD LAB BLOOD ORDERABLES Final Re sult Performing Organization Address [facility] de Phone Number [facility] [address] [place] [address] * PT-INR (08/22/2024 1:26 AM EDT) Pathologist [facility] Prothrombin Time 12.8 12.0 - 14.3 sec 08/22/2024 1:58 AM EDT [facility] INR 1.0 0.9 - 1.1 08/22/2024 1:58 AM EDT [facility] Blood Venous blood specimen / Unknown Venipuncture / Unknown 08/22/2024 1:26 AM EDT 08/22/2024 1:33 AM EDT Narrative [facility] - 08/22/2024 1:58 AM EDT OPTIMAL INR RANGES FOR PATIENT ON ORAL ANTICOAGULANT THERAPY Prevention of venous thromboembolism INR 2.0 to 3.0 In patients with heart disease: Atrial fibrillation INR 2.0 to 3.0 Valvular heart disease INR 2.0 to 3.0 Tissue heart valves INR 2.0 to 3.0 Mechanical prosthetic valves INR 2.5 to 3.5 Prevention of recurrent LA INR 2.5 to 3.5 us Jay Salvador MD LAB BLOOD ORDERABLES Final Re sult Performing Organization Address City/[facility]/ZIP Co de Phone Number [facility] [address] [place] [address] * Type and screen (08/22/2024 1:26 AM [...] ORDERABLE S Final Result Performing Organization Address [facility] Co de Phone Number BLOOD BANK [address] [place] [address], * (ABNORMAL) CMP (08/22/2024 1:26 AM EDT) Glucose, Plasma 93 74 - 99 mg/dL 08/22/2024 2:07 AM EDT [facility] BUN, Plasma 18 8 - 23 mg/dL 08/22/2024 2:07 AM EDT [facility] Creatinine, Plasma 1.27(H) 0.70 - 1.20 mg/dL 08/22/2024 2:07 AM EDT [facility] BUN/Creatinine Ratio 14 08/22/2024 2:07 AM EDT [facility] Sodium, Plasma 142 136 - 145 mmol/L 08/22/2024 2:07 AM EDT [facility] Potassium, Plasma 4.2 3.6 - 4.9 mmol/L 08/22/2024 2:07 AM EDT [facility] Chloride, Plasma 107 97 - 107 mmol/L 08/22/2024 2:07 AM EDT [facility] CO2, Plasma 21(L) 22 - 29 mmol/L 08/22/2024 2:07 AM EDT [facility] Anion Gap 14 6 - 16 mmol/L 08/22/2024 2:07 AM EDT [facility] Total Calcium, Plasma 9.2 8.9 - 10.2 mg/dL 08/22/2024 2:07 AM EDT [facility] Total Protein 6.7 6.3 - 7.9 g/dL 08/22/2024 2:07 AM EDT [facility] Albumin, Plasma 3.8 3.5 - 5.2 g/dL 08/22/2024 2:07 AM EDT [facility] AST, Plasma 21 10 - 50 U/L 08/22/2024 2:07 AM EDT [facility] ALT, Plasma 19 10 - 50 U/L 08/22/2024 2:07 AM EDT [facility] Alkaline Phosphatase, Plasma 91 40 - 115 U/L 08/22/2024 2:07 AM EDT [facility] Total Bilirubin, Plasma 0.3 0.2 - 1.1 mg/dL 08/22/2024 2:07 AM EDT [facility] eGFRcr 56.1 mL/min/1.7 3m*2 08/22/2024 2:07 AM EDT [facility] Comment:Reported eGFRcr in m L/min/1.73m2 is based the CKD-EPI 2020 equation that does not use a race coefficient. Blood Venous blood specimen / Unknown Venipuncture / Unknown 08/22/2024 1:26 AM EDT 08/22/2024 1:33 AM EDT us Jay Salvador MD LAB BLOOD ORDERABLES Final Re sult [facility] [address] [place] [address] * (ABNORMAL) CBC w/diff (08/22/2024 1:26 AM EDT) WBC Count 9.33 3.70 - 10.30 10*3/uL LAB HEMATOLOGY METHOD 08/22/2024 1:35 AM EDT [facility] RBC Count 4.39(L) 4.60 - 6.10 10*6/uL LAB HEMATOLOGY METHOD 08/22/2024 1:35 AM EDT [facility] HGB 12.9(L) 13.7 - 17.5 g/dL LAB HEMATOLOGY METHOD 08/22/2024 1:35 AM EDT [facility] HCT 40.1 40.0 - 51.0 % LAB HEMATOLOGY METHOD 08/22/2024 1:35 AM EDT [facility] Platelet Count 352 155 - 369 10*3/uL LAB HEMATOLOGY METHOD 08/22/2024 1:35 AM EDT [facility] MCV 91 79 - 98 fL LAB HEMATOLOGY METHOD 08/22/2024 1:35 AM EDT [facility] MCH 29.4 26.0 - 32.0 pg LAB HEMATOLOGY METHOD 08/22/2024 1:35 AM EDT [facility] MCHC 32.2 30.7 - 35.5 g/dL LAB HEMATOLOGY METHOD 08/22/2024 1:35 AM EDT [facility] RDW 15.0(H) 11.5 - 14.5 % LAB HEMATOLOGY METHOD 08/22/2024 1:35 AM EDT [facility] MPV 9.9 8.8 - 12.5 fL LAB HEMATOLOGY METHOD 08/22/2024 1:35 AM EDT [facility] nRBC 0.0 <=0.0 per 100 WBCs LAB HEMATOLOGY METHOD 08/22/2024 1:35 AM EDT [facility] Differential Type Automated LAB HEMATOLOGY METHOD 08/22/2024 1:35 AM EDT [facility] Neutrophils % 66 % LAB HEMATOLOGY METHOD 08/22/2024 1:35 AM EDT [facility] Lymphocytes % 21 % LAB HEMATOLOGY METHOD 08/22/2024 1:35 AM EDT [facility] Monocytes % 11 % LAB HEMATOLOGY METHOD 08/22/2024 1:35 AM EDT [facility] Eosinophils % 1 % LAB HEMATOLOGY METHOD 08/22/2024 1:35 AM EDT [facility] Basophils % 0 % LAB HEMATOLOGY METHOD 08/22/2024 1:35 AM EDT [facility] Immature Granulocytes % 1 % LAB HEMATOLOGY METHOD 08/22/2024 1:35 AM EDT [facility] Neutrophils Absolute 6.13(H) 1.60 - 6.10 10*3/uL LAB HEMATOLOGY METHOD 08/22/2024 1:35 AM EDT [facility] Lymphocytes Absolute 1.97 1.20 - 3.90 10*3/uL LAB HEMATOLOGY METHOD 08/22/2024 1:35 AM EDT [facility] Monocytes Absolute 1.01(H) 0.30 - 0.90 10*3/uL LAB HEMATOLOGY METHOD 08/22/2024 1:35 AM EDT [facility] Eosinophils Absolute 0.12 0.00 - 0.50 10*3/uL LAB HEMATOLOGY METHOD 08/22/2024 1:35 AM EDT [facility] Basophils Absolute 0.04 0.00 - 0.10 10*3/uL LAB HEMATOLOGY METHOD 08/22/2024 1:35 AM EDT [facility] Immature Granulocytes Absolute 0.06 0.00 - 0.06 10*3/uL LAB HEMATOLOGY METHOD 08/22/2024 1:35 AM EDT [facility] Blood Venous blood specimen / Unknown Venipuncture / Unknown 08/22/2024 1:26 AM EDT 08/22/2024 1:33 AM EDT Narrative [facility] - 08/22/2024 1:35 AM EDT Therapeutic decision making should be based on absolute values, rather than percentages. Jay Salvador MD LAB BLOOD ORDERABLES Final Re sult [facility] [address] [place] [address] documented in this encounter Visit Diagnoses Diagnosis [...] 08/22/2024 8:46 PM EDT 0.4 mg Tiotropium [place] Monohydrate (Spiriva Respimat) 2.5 MCG/ACT inhaler 2 [...] 2045 (Given - Provider: Micha Alcazar) Tiotropium [place] Monohydrate (Spiriva Respimat) 2.5 MCG/ACT inhaler 2 [...] care Linked Groups Order Group 1: Tiotropium [place] Monohydrate (Spiriva Respimat) 2.5 MCG/ACT inhaler 2 [...] documented as of this encounter Care Teams Manager Regional Sales Relationship Specialty Start Date End Date Ronny Belle MD [address] [place] [address] PCP - General 07/01/24 documented as of this encounter
--- OUTSIDE RECORDS SUMMARY | 2024-08-22 11:42 | XMS_ITS | Encounter Summary ---
Author Organization Healthcare Address [address] [place] [address] Care Team Providers Care Employment And Claims Aide Name Role Phone Ronny Belle MD Primary Care Provider [phone] Reason for Visit * Reason Comments Hematuria * Auth/Cert (Routine) Specialty Diagnoses / Procedures Referred By Contac t Referred To Contact Diagnoses Urinary retention Acute UTI (urinary tract infection) Hematuria, unspecified type Gross hematuria Ben Harman MD [address] ([place]: [place]) [address] [address] Phone: tel: fax: PAV A Inpatient [address] [place] [address] Phone: tel: Referral ID Status Reason Start Date Expiration Date Visits Re quested Visits Authorized [id number] 1 1 Encounter Details Date Type Department Care Team (Late st Contact Info) Description 08/22/2024 11:42 AM EDT - 08/22/2024 1:32 PM EDT Surgery [facility] A OPERATING ROOM [address] [place] [id number] Ben Harman MD [address] ([place]: [place]) [address] [address] TURBT, TURP, USING BIPOLAR CAUTERY [...] drink first t herminio in the morning (EYE-TEST DRIVER) to steady your nerves or to get [...] confirm your location ahead of your appointment) [facility] Urology Department Clinic at [place] [address] [address], [facility], [address] [place] [address] Clinic After Hours [facility] Medical Office Building Urology Clinic [address] [place] [address] Clinic After Hours [facility] Multidisciplinary Urology Clinic [address]st [place] [address] Clinic documented in this encounter Medications at Time of Discharge acetaminophen (Tylenol) 325 MG tablet Take 2 tablets by mouth every 6 hours as needed for headaches, pain or fever. Under [place] law, monthly prescriptions (30 days) can be [...] from the original note were not included. [id number] Transurethral Resection of the Prostate (TURP): Home [...] Check with your healthcare provider before taking dbpn-vrc-davrplq pain relievers. These includeaspirin, ibuprofen, and naproxen. [...] heal. Last Reviewed Date: 2022 00:00:00 ?? [id number] [employer]. All rights reserved. This information is not [...] PCP name and Address: Ronny Belle MD [address] [place] [address] Referring provider name and address: No referring [...] needed for headaches, pain or fever. Under [place] law, monthly prescriptions (30 days) can be [...] Ellipta 200-62.5-25 MCG/ACT aerosol powder Generic drug: Qlvygisacgi-Ipetqeouq-Przfse inhale one (1) puff daily Where to Get Your Medications These medications were sent to [facility] [place], [place] - [address] [facility] [address] acetaminophen 325 MG tablet sulfamethoxazole-trimethoprim 800-160 MG [...] confirm your location ahead of your appointment) [facility] Urology Department Clinic [facility] [address], [place], [address] [place] [address] Clinic After Hours [facility] Medical Office Building Urology Clinic [address] [place] [address] Clinic After Hours [facility] Multidisciplinary Urology Clinic [address] [facility] 1st [place] [address] Clinic Outpatient Follow-Up Future Appointments Date Time Provider Department Center 08/27/2024 11:00 AM PRE-ADMISSION TESTING [facility] - [place] [facility] Results Pending At Discharge [...] Agree with above assessment and evaluation from resident/DROP HAMMER MECHANIC. * Op Note - Ben Harman MD - 08/22/2024 12:36 PM EDT PATIENT NAME: Celestino Lundy : 1940 DATE OF SURGERY: 08/22/24 PROCEDURES PERFORMED: Transurethral resection of prostate PREOPERATIVE DIAGNOSIS: BPH and gross hematuria POSTOPERATIVE DIAGNOSIS: Same SURGEON: Ben Harman MD CUSHION FORMER SURGEON(S): Luciano Patricia DO INTRAOPERATIVE FINDINGS: 1) [...] the start of the case. The 26 Icelandic resectoscope was inserted into the patient's bladder [...] Patricia DO PGY-3, Department of Urology Pager: [phone] * Progress Notes - Anthony Mohr DO [...] Patricia DO PGY-3, Department of Urology Pager: [phone] * H&P - Anthony Mohr DO - [...] into the bladder and advanced a 22 Icelandic Roz three-way catheter over the wire with [...] into the bladder and advanced a 22 Icelandic Roz three-way catheter over the wire with [...] Patricia DO PGY-3, Department of Urology Pager: [phone] * ED Notes - Rodriguez Ferrer - 08/22/2024 4:42 AM EDT Assumed care of pt at this time. Pt is AAOX4, on CCM, VS stable and WNL. Pt denies pain at this time. Urinal placed at bedside, explained plan of care. All questions answered. Side rails up x2, call light within reach. No needs expressed/identified at this time. Family member at [facility]. Rodriguez Ferrer 08/22/24 0452 * ED Notes - Maria Victoria Wong MD - 08/22/2024 4:11 AM EDT 49/urology Maria Victoria Wong MD Resident 08/22/24 0411 * Consults - Tre Maldonado MD - 08/22/2024 2:55 AM EDTAssociated Order(s): Consult to Urology Consult to Urology Consult performed by: Tre Maldonado MD Consult ordered by: Jay Salvador MD Reason for consult: hematuria concern for clot retention [facility] Urology Consult Note 08/22/24 Service Requesting [...] for questions and concerns. Please notify urology environmental issues instructor of PVRs. Tre Maldonado MD [1] Past [...] and time. EASI ?? Total Score: 0 [place] Coma Scale Score: 15 ED Course & [...] Description 12/09/2024 1:40 PM EDT Office Visit [facility] Urology [address], [address] [place] [address] Carrie James PA [address] [place] [address] documented as of this encounter Procedures Procedure [...] CBC W/O Differential (08/23/2024 4:12 AM EDT) [facility] Signature WBC Count 11.72(H) 3.70 - 10.30 10*3/uL LAB HEMATOLOGY METHOD 08/23/2024 4:32 AM EDT [facility] RBC Count 4.13(L) 4.60 - 6.10 10*6/uL LAB HEMATOLOGY METHOD 08/23/2024 4:32 AM EDT [facility] HGB 12.1(L) 13.7 - 17.5 g/dL LAB HEMATOLOGY METHOD 08/23/2024 4:32 AM EDT [facility] HCT 37.0(L) 40.0 - 51.0 % LAB HEMATOLOGY METHOD 08/23/2024 4:32 AM EDT [facility] Platelet Count 365 155 - 369 10*3/uL LAB HEMATOLOGY METHOD 08/23/2024 4:32 AM EDT [facility] MCV 90 79 - 98 fL LAB HEMATOLOGY METHOD 08/23/2024 4:32 AM EDT [facility] MCH 29.3 26.0 - 32.0 pg LAB HEMATOLOGY METHOD 08/23/2024 4:32 AM EDT [facility] MCHC 32.7 30.7 - 35.5 g/dL LAB HEMATOLOGY METHOD 08/23/2024 4:32 AM EDT [facility] RDW 14.9(H) 11.5 - 14.5 % LAB HEMATOLOGY METHOD 08/23/2024 4:32 AM EDT [facility] MPV 9.8 8.8 - 12.5 fL LAB HEMATOLOGY METHOD 08/23/2024 4:32 AM EDT [facility] nRBC 0.0 <=0.0 per 100 WBCs LAB HEMATOLOGY METHOD 08/23/2024 4:32 AM EDT [facility] Blood Venous blood specimen / Unknown Venipuncture / Unknown 08/23/2024 4:12 AM EDT 08/23/2024 4:21 AM EDT us Ben Harman MD LAB BLOOD ORDERABLES Final Result [facility] [address] [place] [address] * (ABNORMAL) Basic Metabolic Panel, Plasma (08/23/2024 4:12 AM EDT) Glucose, Plasma 105(H) 74 - 99 mg/dL 08/23/2024 4:52 AM EDT [facility] BUN, Plasma 13 8 - 23 mg/dL 08/23/2024 4:52 AM EDT [facility] Creatinine, Plasma 1.13 0.70 - 1.20 mg/dL 08/23/2024 4:52 AM EDT [facility] BUN/Creatinine Ratio 12 08/23/2024 4:52 AM EDT [facility] Sodium, Plasma 139 136 - 145 mmol/L 08/23/2024 4:52 AM EDT [facility] Potassium, Plasma 4.7 3.6 - 4.9 mmol/L 08/23/2024 4:52 AM EDT [facility] Chloride, Plasma 107 97 - 107 mmol/L 08/23/2024 4:52 AM EDT [facility] CO2, Plasma 21(L) 22 - 29 mmol/L 08/23/2024 4:52 AM EDT [facility] Anion Gap 11 6 - 16 mmol/L 08/23/2024 4:52 AM EDT [facility] Total Calcium, Plasma 8.5(L) 8.9 - 10.2 mg/dL 08/23/2024 4:52 AM EDT [facility] eGFRcr 64.5 mL/min/1.7 3m*2 08/23/2024 4:52 AM EDT [facility] Comment:Reported eGFRcr in m L/min/1.73m2 is based the CKD-EPI 2020 equation that does not use a race coefficient. Blood Venous blood specimen / Unknown Venipuncture / Unknown 08/23/2024 4:12 AM EDT 08/23/2024 4:22 AM EDT us Ben Harman MD LAB BLOOD ORDERABLES Final Result Performing Organization Address City/[facility]/ZIP Co de Phone Number [facility] [address] [place] [address] * Surgical Pathology Exam (08/22/2024 1:41 PM EDT) Case Report Surgical Pathology Case: [id number] Authorizing Provider: Ben Harman MD Collected: 08/22/2024 1341 Ordering Location: [facility] A OPERATING ROOM Received: 08/22/2024 1431 Pathologist: Bola Harrison MD Specimen: Prostate, Prostate Chips 08/26/2024 1:43 PM EDT [facility] Final Diagnosis PROSTATE, TRANSURETHRAL RESECTION OF PROSTATE: - PROSTATIC STROMAL AND GLANDULAR HYPERPLASIA - ACUTE PROSTATITIS 08/26/2024 1:43 PM EDT [facility] at 1343 EDT Clinical Information Hematuria, unspecified type [R31.9] Urinary retention [R33.9] 08/26/2024 1:43 PM EDT [facility] Gross Description A. PROSTATE CHIPS Received in formalin labeled prostate chips are multiple pieces of pink-cherry soft tissue admixed with red-brown hemorrhagic material measuring 9.0 x 6.0 x 0.8 cm in aggregate and weighing 23.8 g. Warehouser sections are submitted in cassettes A1-A8. Cold Time: 10m Ciarra Gallegos 08/26/2024 1:43 PM EDT [facility] Note: A resident was involved in the service. I attest I examined the relevant preparations for the specimens and confirmed the diagnosis or interpretation. 08/26/2024 1:43 PM EDT [facility] Tissue Prostate / Unknown 08/22/2024 1:41 PM EDT 08/22/2024 2:31 PM EDT Comment:Pre-op diagnosis: Hematuria, unspecified type [R31.9] Urinary retention [R33.9] us Ben Harman MD LAB PATHOLOGY ORDERABLES Fi nal Result Performing Organization Address City/[facility]/ZIP Co de Phone Number [facility] [address] [place] [address] * CT Angio Abdomen Pelvis (08/22/2024 5:12 [...] ORDERABLES Final Re sult Performing Organization Address [facility] Co de Phone Number [facility] [address] [place] [address] * (ABNORMAL) Urine Culture (08/22/2024 1:41 AM EDT) Culture <10,000 CFU/mL Staphylococcus coagulase negative(A) 08/23/2024 8:16 AM EDT [facility] Urine Urine specimen obtained by clean catch procedure / Unknown Non-blood Collection / Unknown 08/22/2024 1:41 AM EDT 08/22/2024 1:58 AM EDT us Jay Salvador MD LAB MICROBIOLOGY - GENERAL OR DERABLES Final Result Performing Organization Address [facility] [place] [address] * Urinalysis Microscopic Examination (08/22/2024 1:41 AM EDT) Urine Urine specimen obtained by clean catch procedure / Unknown Non-blood Collection / Unknown 08/22/2024 1:41 AM EDT 08/22/2024 1:52 AM EDT us Jay Salvador MD LAB URINE ORDERABLES Final Re sult Performing Organization Address [facility] [place] [address] * Urine Fischer Panel (08/22/2024 1:41 AM EDT) Extra Sent for Culture 08/22/2024 3:01 AM EDT [facility] Urine Urine specimen obtained by clean catch procedure / Unknown Non-blood Collection / Unknown 08/22/2024 1:41 AM EDT 08/22/2024 1:58 AM EDT us Jay Salvador MD LAB URINE ORDERABLES Final Re sult Performing Organization Address [facility] Co de Phone Number [facility] [address] [place] [address] * (ABNORMAL) Urinalysis with reflex microscopic (Culture NOT Included) (08/22/2024 1:41 AM EDT) Color, Urine Red LAB URINALYSIS - AUTOMATED METHOD 08/22/2024 2:37 AM EDT [facility] Clarity, Urine Cloudy LAB URINALYSIS - AUTOMATED METHOD 08/22/2024 2:37 AM EDT [facility] Spec [place], Urine 1.015 1.005 - 1.030 LAB URINALYSIS - AUTOMATED METHOD 08/22/2024 2:37 AM EDT [facility] pH, Urine 6.5 5.0 - 8.0 LAB URINALYSIS - AUTOMATED METHOD 08/22/2024 2:37 AM T [facility] Protein, Urine >=300(A) Negative mg/dL LAB URINALYSIS - AUTOMATED METHOD 08/22/2024 2:37 AM EDT [facility] Glucose, Urine 100(A) Negative mg/dL LAB URINALYSIS - AUTOMATED METHOD 08/22/2024 2:37 AM EDT [facility] Ketones, Urine 15(A) Negative mg/dL LAB URINALYSIS - AUTOMATED METHOD 08/22/2024 2:37 AM EDT [facility] Blood, Urine Large(A) Negative LAB URINALYSIS - AUTOMATED METHOD 08/22/2024 2:37 AM EDT [facility] Bilirubin, Urine Large(A) Negative LAB URINALYSIS - AUTOMATED METHOD 08/22/2024 2:37 AM EDT [facility] Urobilinogen, Urine >=8.0(A) 0.2 to 1.0 mg/dL LAB URINALYSIS - AUTOMATED METHOD 08/22/2024 2:37 AM EDT [facility] Leukocytes, Urine Large(A) Negative LAB URINALYSIS - AUTOMATED METHOD 08/22/2024 2:37 AM EDT [facility] Nitrite, Urine Positive(A) Negative LAB URINALYSIS - AUTOMATED METHOD 08/22/2024 2:37 AM EDT [facility] RBC, Urine >50(A) 0 to 3 /HPF 08/22/2024 2:37 AM EDT [facility] Comment:This result was prev iously suppressed from the chart. WBC, Urine Unable to estimate due to obscuring RBC's (UNERBC) 0 to 5 /HPF 08/22/2024 2:37 AM EDT [facility] Comment:This result was prev iously suppressed from the chart. Squamous Epithelial Cells Unable to estimate due to obscuring RBC's (UNERBC) 0 to 5 /HPF 08/22/2024 2:37 AM EDT [facility] Comment:This result was prev iously suppressed from the chart. Hyaline Casts Unable to estimate due to obscuring RBC's (UNERBC) 0 to 5 /LPF 08/22/2024 2:37 AM EDT [facility] Comment:This result was prev iously suppressed from the chart. Bacteria, Urine Present Negative 08/22/2024 2:37 AM EDT [facility] Comment:This result was prev iously suppressed from the chart. Urine Urine specimen obtained by clean catch procedure / Unknown Non-blood Collection / Unknown 08/22/2024 1:41 AM EDT 08/22/2024 1:52 AM EDT Narrative [facility] - 08/22/2024 2:37 AM EDT Urinalysis dipstick results may be inaccurate due to specimen color or an interfering substance in the specimen. Performed by manual method us Jay Salvador MD LAB URINE ORDERABLES Final Re sult [facility] [address] [place] [address] * ED HIV 1/2 Antibody/Antigen Screen w/Reflex to HIV 1/2 Differentiation (08/22/2024 1:26 AM EDT) HIV 1 & 2 Antibody/Antigen Screen Non Reactive Non Reactive 08/22/2024 2:15 AM EDT [facility] Comment:Screening for HIV 1 & 2 antibodies, and P24 antigen is NONREACTIVE. No confirmatory testing is required. Blood Venous blood specimen / Unknown Venipuncture / Unknown 08/22/2024 1:26 AM EDT 08/22/2024 1:34 AM EDT us Jay Salvador MD LAB BLOOD [place] [address] * Hepatitis C Antibody - ED (08/22/2024 1:26 AM EDT) Pathologist [facility] [place] Hepatitis C Antibody Negative Negative 08/22/2024 2:15 AM EDT [facility] Blood Venous blood specimen / Unknown Venipuncture / Unknown 08/22/2024 1:26 AM EDT 08/22/2024 1:34 AM EDT us Jay Salvador MD LAB BLOOD ORDERABLES Final Re sult Performing Organization Address [facility] [place] [address] * PT-INR (08/22/2024 1:26 AM EDT) Pathologist [facility] Prothrombin Time 12.8 12.0 - 14.3 sec 08/22/2024 1:58 AM EDT [facility] INR 1.0 0.9 - 1.1 08/22/2024 1:58 AM EDT [facility] Blood Venous blood specimen / Unknown Venipuncture / Unknown 08/22/2024 1:26 AM EDT 08/22/2024 1:33 AM EDT Narrative [facility] - 08/22/2024 1:58 AM [...] ORDERABLES Final Re sult Performing Organization Address City/[facility]/[place] [address] * Type and screen (08/22/2024 1:26 AM [...] ORDERABLE S Final Result BLOOD BANK [address] [place] [address], * (ABNORMAL) CMP (08/22/2024 1:26 AM EDT) Glucose, Plasma 93 74 - 99 mg/dL 08/22/2024 2:07 AM EDT [facility] BUN, Plasma 18 8 - 23 mg/dL 08/22/2024 2:07 AM EDT [facility] Creatinine, Plasma 1.27(H) 0.70 - 1.20 mg/dL 08/22/2024 2:07 AM EDT [facility] BUN/Creatinine Ratio 14 08/22/2024 2:07 AM EDT [facility] Sodium, Plasma 142 136 - 145 mmol/L 08/22/2024 2:07 AM EDT [facility] Potassium, Plasma 4.2 3.6 - 4.9 mmol/L 08/22/2024 2:07 AM EDT [facility] Chloride, Plasma 107 97 - 107 mmol/L 08/22/2024 2:07 AM EDT [facility] CO2, Plasma 21(L) 22 - 29 mmol/L 08/22/2024 2:07 AM EDT [facility] Anion Gap 14 6 - 16 mmol/L 08/22/2024 2:07 AM EDT [facility] Total Calcium, Plasma 9.2 8.9 - 10.2 mg/dL 08/22/2024 2:07 AM EDT [facility] Total Protein 6.7 6.3 - 7.9 g/dL 08/22/2024 2:07 AM EDT [facility] Albumin, Plasma 3.8 3.5 - 5.2 g/dL 08/22/2024 2:07 AM EDT [facility] AST, Plasma 21 10 - 50 U/L 08/22/2024 2:07 AM EDT [facility] ALT, Plasma 19 10 - 50 U/L 08/22/2024 2:07 AM EDT [facility] Alkaline Phosphatase, Plasma 91 40 - 115 U/L 08/22/2024 2:07 AM EDT [facility] Total Bilirubin, Plasma 0.3 0.2 - 1.1 mg/dL 08/22/2024 2:07 AM EDT [facility] eGFRcr 56.1 mL/min/1.7 3m*2 08/22/2024 2:07 AM EDT [facility] Comment:Reported eGFRcr in m L/min/1.73m2 is based the CKD-EPI 2020 equation that does not use a race coefficient. Blood Venous blood specimen / Unknown Venipuncture / Unknown 08/22/2024 1:26 AM EDT 08/22/2024 1:33 AM EDT us Jay Salvador MD LAB BLOOD ORDERABLES Final Re sult [facility] [address] [place] [address] * (ABNORMAL) CBC w/diff (08/22/2024 1:26 AM EDT) WBC Count 9.33 3.70 - 10.30 10*3/uL LAB HEMATOLOGY METHOD 08/22/2024 1:35 AM EDT [facility] RBC Count 4.39(L) 4.60 - 6.10 10*6/uL LAB HEMATOLOGY METHOD 08/22/2024 1:35 AM EDT [facility] HGB 12.9(L) 13.7 - 17.5 g/dL LAB HEMATOLOGY METHOD 08/22/2024 1:35 AM EDT [facility] HCT 40.1 40.0 - 51.0 % LAB HEMATOLOGY METHOD 08/22/2024 1:35 AM EDT [facility] Platelet Count 352 155 - 369 10*3/uL LAB HEMATOLOGY METHOD 08/22/2024 1:35 AM EDT [facility] MCV 91 79 - 98 fL LAB HEMATOLOGY METHOD 08/22/2024 1:35 AM EDT [facility] MCH 29.4 26.0 - 32.0 pg LAB HEMATOLOGY METHOD 08/22/2024 1:35 AM EDT [facility] MCHC 32.2 30.7 - 35.5 g/dL LAB HEMATOLOGY METHOD 08/22/2024 1:35 AM EDT [facility] RDW 15.0(H) 11.5 - 14.5 % LAB HEMATOLOGY METHOD 08/22/2024 1:35 AM EDT [facility] MPV 9.9 8.8 - 12.5 fL LAB HEMATOLOGY METHOD 08/22/2024 1:35 AM EDT [facility] nRBC 0.0 <=0.0 per 100 WBCs LAB HEMATOLOGY METHOD 08/22/2024 1:35 AM EDT [facility] Differential Type Automated LAB HEMATOLOGY METHOD 08/22/2024 1:35 AM EDT [facility] Neutrophils % 66 % LAB HEMATOLOGY METHOD 08/22/2024 1:35 AM EDT [facility] Lymphocytes % 21 % LAB HEMATOLOGY METHOD 08/22/2024 1:35 AM EDT [facility] Monocytes % 11 % LAB HEMATOLOGY METHOD 08/22/2024 1:35 AM EDT [facility] Eosinophils % 1 % LAB HEMATOLOGY METHOD 08/22/2024 1:35 AM EDT [facility] Basophils % 0 % LAB HEMATOLOGY METHOD 08/22/2024 1:35 AM EDT [facility] Immature Granulocytes % 1 % LAB HEMATOLOGY METHOD 08/22/2024 1:35 AM EDT [facility] Neutrophils Absolute 6.13(H) 1.60 - 6.10 10*3/uL LAB HEMATOLOGY METHOD 08/22/2024 1:35 AM EDT [facility] Lymphocytes Absolute 1.97 1.20 - 3.90 10*3/uL LAB HEMATOLOGY METHOD 08/22/2024 1:35 AM EDT [facility] Monocytes Absolute 1.01(H) 0.30 - 0.90 10*3/uL LAB HEMATOLOGY METHOD 08/22/2024 1:35 AM EDT [facility] Eosinophils Absolute 0.12 0.00 - 0.50 10*3/uL LAB HEMATOLOGY METHOD 08/22/2024 1:35 AM EDT [facility] Basophils Absolute 0.04 0.00 - 0.10 10*3/uL LAB HEMATOLOGY METHOD 08/22/2024 1:35 AM EDT [facility] Immature Granulocytes Absolute 0.06 0.00 - 0.06 10*3/uL LAB HEMATOLOGY METHOD 08/22/2024 1:35 AM EDT [facility] Blood Venous blood specimen / Unknown Venipuncture / Unknown 08/22/2024 1:26 AM EDT 08/22/2024 1:33 AM EDT Narrative [facility] - 08/22/2024 1:35 AM EDT Therapeutic decision making should be based on absolute values, rather than percentages. us Jay Salvador MD LAB BLOOD ORDERABLES Final Re sult [facility] [address] [place] [address] documented in this encounter Visit Diagnoses Diagnosis [...] 08/22/2024 8:46 PM EDT 0.4 mg Tiotropium [place] Monohydrate (Spiriva Respimat) 2.5 MCG/ACT inhaler 2 [...] 2046 (Given - Provider: Micha Alcazar) Tiotropium [place] Monohydrate (Spiriva Respimat) 2.5 MCG/ACT inhaler 2 [...] care Linked Groups Order Group 1: Tiotropium [place] Monohydrate (Spiriva Respimat) 2.5 MCG/ACT inhaler 2 [...] documented as of this encounter Care Teams Employment And Claims Aide Relationship Specialty Start Date End Date Ronny Belle MD [facility] [place] [address] PCP - General 07/01/24 documented as of this encounter
--- OUTSIDE RECORDS SUMMARY | 2024-08-22 12:09 | XMS_ITS | Encounter Summary ---
Author Organization [facility] Address [address] [place] [address] Care Team Providers Care Janitorial Assistant Name Role Phone Ronny Belle MD Primary Care Provider [phone] Reason for Visit * Auth/Cert (Routine) Specialty Diagnoses / Procedures Referred By Contac t Referred To Contact Diagnoses Urinary retention Acute UTI (urinary tract infection) Hematuria, unspecified type Gross hematuria Ben Harman MD [address] [facility] [address] [place] [address] Phone: tel: fax: PAV A Inpatient [address] [place] [address] Phone: tel: Referral ID Status Reason Start Date Expiration Date Visits Re quested Visits Authorized [id number] 1 1 Encounter Details Date Type Department Care Team (Late st Contact Info) Description 08/22/2024 12:09 PM EDT Anesthesia Event PAV A OPERATING ROOM [address] [place] [address] Jordan Reaves DO [address] [place] [address] Mamadou Donohue CRNA [address] [place] [address] Anesthesia Record Procedure Summary Procedure Name Responsible Anesthesiologist Anesthesia Start Time Anesthesia Stop Time TURBT, TURP, USING BIPOLAR CAUTERY PROBE, WITH SALINE IRRIGATION (Ureter) Jordan Reaves DO 08/22/24 1209 08/22/24 1404 Events Date Time Event Comment 08/22/2024 1146 1209 An Start The patient was reevaluated immediately before sedation and remains eligible for anesthesia plan. 1213 An Start Data 1213 In Room 1223 An Induction The patient was reevaluated immediately before moderate or deep sedation use and before anesthesia induction. 1225 An Intubation 1226 Anesthesia Ready 1236 Proc Start 1348 Proc Fin 1351 An Extubation 1354 an stop data 1355 Out of Room 1402 Handoff to Receiving I compl eted my handoff to the receiving clinician during which we: 1. Identified the patient 2. Identified the responsible provider 3. Reviewed the pertinent medical history 4. Discussed the surgical course 5. Reviewed intra-op anesthesia management and issues during anesthesia 6. Set expectations for post-procedure period 7. Allowed opportunity for questions and acknowledgement of understanding. 1404 An Stop Meds Name Total fentaNYL (Sublimaze) injection 50 mcg/mL 150 mcg lidocaine PF (Xylocaine-MPF) 2% 80 mg propofol (Diprivan) injection 10 mg/mL 2 00 mg rocuronium (ZeMuron) injection 10 mg/mL 60 mg dexamethasone (Decadron) injection 4 mg/ mL 4 mg ondansetron (Zofran) injection 2 mg/mL 4 mg sugammadex (Bridion) injection 100 mg/mL 100 mg lactated Ringer's infusion 1,100 mL * Agents Name O2 N2O Air Sevoflurane Desflurane Inspired Desflurane Inspired Sevoflurane N2O Inspired N2O * Blood No blood administrations on file. Lines, Drains, and Airways Type Details Placement Removal Urethral Catheter Placement Date: 08/22/24; Placement Time: 07; Inserted by: Urology; Existing LDA Placed by: Other (Comment) ( Urology); Type: Non-latex (3-way seals); Balloon Size: 10 mL 08/22/24 0705 by Hugo Cameron RN Peripheral IV Placement Date: 08/22/24; Placement Time: 113; Catheter Size: 20 G; Orientation: Right, Lateral; Location: Wrist; Inserted by: Laurita phan; Removal Date: 08/23/24; Removal Time: 133; Removal Reason: Discharge 08/22/24 1138 by Chanell Denise RN 08/23/24 133 by Shahzad Barrett RN ETT Placement Date: 08/22/24; Placement Time: 1225 (created via procedure documentation); Mask Ventilation: 2; Technique: Direct laryngoscopy; Type: ETT - single; Single Lumen Tube Size: 7.5 mm; Cuffed: Yes; Laryngoscope: Lisseth; Blade Size: 4; Location: Oral; Grade View: Grade I; Insertion Attempts: 1; Placement Verification: Auscultation, Capnometry; Airway Comments: Atraumatic. No change to dentition. ; Placed by: TIRE BALANCER; Removal Date: 08/22/24; Removal Time: 1351 08/22/24 1225 by Mamadou Donohue CRNA 08/22/24 1351 by Mamadou Donohue CRNA documented in this encounter Social History Tobacco [...] drink first t herminio in the morning (EYE-RADIO BOARD OPERATOR ANNOUNCER) to steady your nerves or to get rid of a hangover? 0 08/22/2024 CAGE Questionnaire Score 0 025 Sex and Gender Information Value Date Recorded Sex Assigned at Male 08/22/2024 8:21 AM EDT Legal Sex Male 2:04 PM EDT Gender Identity Not on file Sexual Orientation Not on file documented as of this encounter Functional Status * Calculated C-SSRS Risk Score (Lifetime/Recent) Answer Date of Assessment Author No Risk Indicated 08/23/2024 6:00 AM EDT Jeffrey Alcazar * Question Answer Date of Assessment Author 1. Wish to be (Past 1 Month) No 025 6:00 AM EDT Ottoniel, Malerie 2. Non-Specific Active Suici joyce Thoughts (Past 1 Month) No 08/23/2024 6:00 AM EDT Ray Alcazarrie 6. Suicidal Behavior (Lifetime) No 6:00 AM EDT Micha Alcazar documented as of this encounter Miscellaneous Notes * Anesthesia Postprocedure Evaluation - Mamadou Donohue CRNA - 08/22/2024 2:09 PM EDT Patient: Celestino Lundy Anesthesia Type: general Vitals Value Taken Time BP 140/71 08/22/24 14:05 Temp 36.9 ??C (98.4 ??F) 08/22/24 14:00 Pulse 85 08/22/24 14:08 Resp 17 08/22/24 14:08 SpO2 92 % 08/22/24 14:08 Vitals shown include unfiled device data. Anesthesia Post Evaluation Patient location during evaluation: PACU Patient participation: complete - patient participated Level of consciousness: awake Pain management: adequate (pain score 0-3) Airway patency: natural airway Cardiovascular status: acceptable and hemodynamically stable Respiratory status: acceptable, face mask, nonlabored ventilation, spontaneous ventilation and unassisted Hydration status: stable Nausea/Vomiting: No No notable events documented. * Anesthesia Procedure Notes - Mamadou Donohue CRNA - 08/22/2024 12:39 PM EDT Associated Order(s): Airway Airway Date/Time: 08/22/2024 12:25 PM Reason: elective Airway not difficult General Information and Staff Patient location during procedure: OR TIRE BALANCER: Mamadou Donohue CRNA Performed: TIRE BALANCER Patient Condition Indications for airway management: anesthesia Patient position: sniffing Final Airway Details Final airway type: endotracheal airway Successful airway: ETT Cuffed: yes Successful intubation technique: direct laryngoscopy Adjuncts used in placement: intubating stylet Endotracheal tube insertion site: oral Blade: Lisseth Blade size: #4 ETT size (mm): 7.5 Cormack-Lehane Classification: grade I - full view of glottis Placement verified by: chest auscultation and capnometry Cuff volume (mL): 7 Measured from: lips ETT to lips (cm): 23 Additional Comments Atraumatic. No change to dentition. * Anesthesia Preprocedure Evaluation - Jordan Reaves DO - 08/22/2024 11:44 AM EDT Patient: Celestino Lundy Procedure Information Date/Time: 08/22/24 1142 Procedure: TURBT, TURP, USING BIPOLAR CAUTERY PROBE, WITH SALINE IRRIGATION (Ureter) Location: [facility] Surgeons: Ben Harman MD No anesthesia staff entered. HPI Celestino Lundy is a 83 y.o. male who presents for TURBT, TURP, USING BIPOLAR CAUTERY PROBE, WITH SALINEIRRIGATION (N/A) in setting of new onset hematuria. PMH significant for HTN, HLD, CKD (Cr-1.27/eGFR-56) and prostate mass. Allergies to PCN-swelling. Most recent HCT-40.7. Denies any pre-syncope/dizziness, palpitations, chest pain, dyspnea. Prior anesthetics without apparent complications. NPO to solids >8 hours, clears >2 hours. ALLERGIES Allergies[1] NPO STATUS AIRWAY HISTORY Medical History[2] MEDICATIONS Outpatient Prescriptions Prior to Admission[3] Current Outpatient Medications Medication Instructions ??? amLODIPine-benazepril (Lotrel) 10-20 MG capsule 1 capsule, Daily ??? atorvastatin (LIPITOR) 20 mg ??? cefpodoxime (VANTIN) 200 mg, Oral, 2 times daily ??? Dutasteride-Tamsulosin HCl 0.5-0.4 MG capsule 1 capsule, Daily ??? ezetimibe (ZETIA) 10 mg ??? Trelegy Ellipta 200-62.5-25 MCG/ACT aerosol powder inhale one (1) puff daily Scheduled ??? gentamicin, 5 mg/kg (Adjusted), Intravenous, Once ??? Insert peripheral IV, , , Once AND Saline lock IV, , , Once AND sodium chloride, 10 mL,Intravenous, q12h AND sodium chloride, 10 mL, Intravenous, PRN PRNs PRN medications: lidocaine, Insert peripheral IV AND Saline lock IV AND sodium chloride AND sodium chloride SURGICAL HX: Surgical History[4] FUNCTIONAL CAPACITY SOCIAL HX: Social History[5] OBJECTIVE DATA LABS Type and Screen ABO/Rh Date Value Ref Range Status 08/22/2024 O Positive Final COVID No results found for: SARSCOV2 Lab Results Component Value Date WBC 9.33 08/22/2024 HGB 12.9 (L) 08/22/2024 HCT 40.1 08/22/2024 MCV 91 08/22/2024 PLT 352 08/22/2024 Lab Results Component Value Date GLUCOSE 93 08/22/2024 CALCIUM 9.2 08/22/2024 NA 142 08/22/2024 K 4.2 08/22/2024 CO2 21 (L) 08/22/2024 CL 107 08/22/2024 BUN 18 08/22/2024 CREATININE 1.27 (H) 08/22/2024 Results from last 7 days Lab Units 08/22/24 0126 INR 1.0 Diabetic Labs No results found for: HGBA1C No results found for: HGBA1C , PGLU ABG No results found for: PHART , IUZ4EEE , PO2ART , SO2ART , BEART , WGD6DBB , HCTART , SODIUMART , POTASSIUMART , POCTCL , POCGLU , IONCALART , LACTATE Lab Results Component Value Date NA 142 08/22/2024 EKG No results found for this or any previous visit (from the past 4464 hours). ECHO No echocardiogram results found for the past 12 months PFTs No results found for: FTZ4DHN , QXL6BAXN , PHO0TOF , FVCPRED Anesthesia Evaluation Physical Exam Airway Mallampati: II Mouth opening: normal TM distance: >3 FB Neck ROM: full Cardiovascular Rhythm: regular Rate: normal Dental (+) edentulous Pulmonary Breath sounds clear to auscultation Neurological Skin Musculoskeletal Extremities Anesthesia Plan ASA 3 - emergent Plan was reviewed with: TIRE BALANCER Anesthesia technique(s) discussed with the patient/family: general Anesthesia plan agreed upon was: general Anesthetic plan and risks discussed with patient. Use of blood products discussed with patient who consented to blood products. Additional Equipment Requests [1] Allergies Allergen Reactions ??? Penicillins Swelling [2] Past Medical History: Diagnosis Date ??? High cholesterol ??? Hypertension [3] Medications Prior to Admission Medication Sig Dispense Refill Last Dose/Taking ??? amLODIPine-benazepril (Lotrel) 10-20 MG capsule Take 1 capsule by mouth daily. ??? atorvastatin (Lipitor) 20 MG tablet Take 1 tablet by mouth. ??? Dutasteride-Tamsulosin HCl 0.5-0.4 MG capsule Take 1 capsule by mouth daily. ??? ezetimibe (Zetia) 10 MG tablet Take 1 tablet by mouth. ??? Trelegy Ellipta 200-62.5-25 MCG/ACT aerosol powder inhale one (1) puff daily [4] Past Surgical History: Procedure Laterality Date ??? PROSTATE SURGERY [5] Social History Tobacco Use ??? Smoking status: Former Types: Cigarettes ??? Smokeless tobacco: Never Vaping Use ??? Vaping status: Never Used Substance Use Topics ??? Alcohol use: Never ??? Drug use: Never documented in this encounter Plan of Treatment Upcoming Encounters Date Type Department Care Team (Late st Contact Info) Description 12/09/2024 1:40 PM EDT Office Visit [facility] Urology [address] [place] [address] Carrie James PA [address] [place] [address] documented as of this encounter Procedures Procedure Name Priority Date/Time Associated Diagnosis Comments PB ANESTHESIA PLACEHOLDER Routine 08/22/2024 12:25 PM EDT ME AN ELECTIVE ENDOTRACHEAL AIRWAY Routine 08/22/2024 12:25 PM EDT documented in this encounter Results * ME AN ELECTIVE ENDOTRACHEAL AIRWAY, PB ANESTHESIA PLACEHOLDER (08/22/2024 12:25 PM EDT) Narrative Mamadou Donohue CRNA - 08/22/2024 12:25 PM EDT Mamadou Donohue CRNA 08/22/2024 12:40 PM Airway Date/Time: 08/22/2024 12:25 PM Reason: elective Airway not difficult General Information and Staff Patient location during procedure: OR TIRE BALANCER: Mamadou Donohue CRNA Performed: TIRE BALANCER Patient Condition Indications for airway management: anesthesia Patient position: sniffing Final Airway Details Final airway type: endotracheal airway Successful airway: ETT Cuffed: yes Successful intubation technique: direct laryngoscopy Adjuncts used in placement: intubating stylet Endotracheal tube insertion site: oral Blade: Lisseth Blade size: #4 ETT size (mm): 7.5 Cormack-Lehane Classification: grade I - full view of glottis Placement verified by: chest auscultation and capnometry Cuff volume (mL): 7 Measured from: lips ETT to lips (cm): 23 Additional Comments Atraumatic. No change to dentition. Jordan Reaves DO ANESTHESIA ORDERABLES Final Result documented in this encounter Visit Diagnoses Not on filedocumented in this encounter Administered Medications Inactive Administered Medications - up to 3 most recent administrations Medication Order MAR Action Action Date Dose Rate Site dexamethasone (Decadron) injection Intravenous, As needed, Starting on Sun08/22/24 at 1229, Until Sun08/22/24 at 1409, Routine, Anesthesia Intraprocedure Given 08/22/2024 12:29 PM EDT 4 mg fentaNYL (Sublimaze) injection Intravenous, As needed, Starting on Sun08/22/24 at 1223, Until Sun08/22/24 at 1409, Routine, Anesthesia Intraprocedure Given 08/22/2024 1:15 PM EDT 50 mcg Given 08/22/2024 12:40 PM EDT 50 mcg Given 08/22/2024 12:23 PM EDT 50 mcg lactated Ringer's infusion Intravenous, Continuous PRN, Starting on Sun08/22/24 at 1208, Until Sun08/22/24 at 1409, Routine New Bag 08/22/2024 1:46 PM EDT New Bag 08/22/2024 12:08 PM EDT lidocaine PF (Xylocaine) 2 % injection Intravenous, As needed, Starting on Sun08/22/24 at 1223, Until Sun08/22/24 at 1409, Routine, Anesthesia Intraprocedure Given 08/22/2024 12:23 PM EDT 80 mg ondansetron (Zofran) injection Intravenous, As needed, Starting on Sun08/22/24 at 1235, Until Sun08/22/24 at 1409, Routine, Anesthesia Intraprocedure Given 08/22/2024 12:35 PM EDT 4 mg propofol (Diprivan) injection Intravenous, As needed, Starting on Sun08/22/24 at 1223, Until Sun08/22/24 at 1409, Routine, Anesthesia Intraprocedure Given 08/22/2024 1:01 PM EDT 50 mg Given 08/22/2024 12:25 PM EDT 20 mg Given 08/22/2024 12:24 PM EDT 30 mg rocuronium (ZeMuron) injection Intravenous, As needed, Starting on Sun08/22/24 at 1223, Until Sun08/22/24 at 1409, Routine, Anesthesia Intraprocedure Given 08/22/2024 1:31 PM EDT 10 mg Given 08/22/2024 12:23 PM EDT 50 mg sugammadex (Bridion) 100 MG/ML injection Intravenous, As needed, Starting on Sun08/22/24 at 1349, Until Sun08/22/24 at 1409, Routine, Anesthesia Intraprocedure Given 08/22/2024 1:49 PM EDT 100 mg documented in this encounter Additional Health Concerns Assessment Noted Time A fall risk assessment has been complete d for the patient 08/11/2024 10:45 AM EDT A Body Mass Index follow-up plan has been documented for the patient 08/23/2024 2:19 PM EDT documented as of this encounter Care Teams Janitorial Assistant Relationship Specialty Start Date End Date Ronny Belle MD [address] [place] [address] PCP - General 07/01/24 documented as of this encounter
--- OUTSIDE RECORDS SUMMARY | 2024-08-26 11:00 | XMS_ITS | Encounter Summary ---
Author Organization [facility] Address [address] [place] [address] Care Team Providers Care Case Liner Name Role Phone Ronny Belle MD Primary Care Provider Reason for Visit * Reason Comments urine retention Encounter Details Date Type Department Care Team (Latest Contact Info) Description 08/26/2024 11:00 AM EDT Clinical Support [facility] Urology [address] [place] [address] Robyn Ferguson, RN Urine retention (Primary Dx) Social History Tobacco Use Types Packs/Day Years Used Date Smoking Tobacco: Former Cigarettes 3 67 1 955 - 2021 Smokeless Tobacco: Never Tobacco Cessation:Counseling Given: Not [...] drink first t herminio in the morning (EYE-BOTTOM PRECIPITATOR OPERATOR) to steady your nerves or to [...] Sign Reading Time Taken Comments Blood Pressure 126/66 08/26/2024 11:12 AM EDT Pulse 89 08/26/2024 11:12 AM EDT Temperature 36.4 C (97.6 F) 08/26/2024 11:12 AM EDT Respiratory Rate - - Oxygen Saturation 94% 08/26/2024 11:12 AM EDT Inhaled Oxygen Concentration - - Weight 107 kg (235 lb 14.3 oz) 08/26/2024 11:12 AM EDT Height - - Body Mass Index 34.84 08/22/2024 7:56 PM EDT documented in this encounter Miscellaneous Notes * Progress Notes - Robyn Ferguson RN - 08/26/2024 11:00 AM EDT Mr. Lundy presents to clinic today with daughter, Lia, due to trouble urinating. Patient had a TURBT and TURP with Dr. Harman 08/22/24. Patient reports voiding small amounts about every 30 minutes. Denies seeing any blood or clots in the urine. PVR in clinic today was 616 mL. Spoke with Carrie James PA-C who stated okay to place catheter due to urinary retention. Discussed catheter placement with patient and daughter. Verbal consent wasgiven for the procedure. Patient was prepped with chlorhexidine and lidocaine gel per JUN. Attempted to insert 16 Fr latex coude seals catheter using sterile technique but did not obtain urine return. Catheter was removed. Notified Carrie James PA-C who prepped patient with chlorhexidine and lidocaine gel per JUN. Carrie James PA-C inserted a 16 Fr latex seals catheter using sterile technique and inflated the seals balloon with 8 mL sterile water without resistance. No urine return was noted. Patient denied di scomfort. Catheter was flushed with 20 mL sterile water without return of urine. Seals catheter wassecured to left upper thigh using an adhesive securement device and leg bag was attached to catheter. Patient was assisted to a sitting position, stood and walked around but no urine return was noted. Carrie James PA-C was notified and contacted Dr. Harman. Dr. Harman deflated the catheter balloon, advanced the catheter further into the bladder and filled the seals catheter balloon with 20 mL sterile water. Immediate return of 875 mL dark yellow, cloudy urine was noted. Seals was attached to leg bag and secured to left upper thigh using a velcro leg strap. Patient and daughter were educated on how to change leg bag to overnight bag and how to adjust velcro leg strap. Patient was educated on importance of cleaning around catheter insertion site daily with soap and water. Patient will return 09/02/24 at 1330 for nurse visit for voiding trial and possible catheter replacement or CIC teaching if patient does not pass voiding trial. Patient advised to contact clinic if catheter stops draining or with questions/concerns. Cosigned by Carrie James PA at 08/27/2024 1:14 PM EDT Associated attestation - Carrie James PA - 08/27/2024 1:14 PM EDT I was present during all critical and doan portions of the procedure(s) and immediately available woman's hospital services the entire duration. See resident note for details. documented in this encounter Plan of Treatment Upcoming Encounters Date Type Department Care Team (Late st Contact Info) Description 12/09/2024 1:40 PM EDT Office Visit [facility] Urology [address] [place] [address] Carrie James PA [address] [place] [address] documented as of this encounter Procedures Procedure Name Priority Date/Time Associated Diagnosis Comments POC US BLADDER SCAN FOR VOLUME Routine 08/26/2024 11:15 AM EDT Urine retention documented in this encounter Results * POC US Bladder Volume (08/26/2024 11:15 AM EDT) Urine, Volume 616 mL IMAGING Anatomical Region Laterality Modality Other Carrie ALVAREZ IMG POINT OF CARE ULTRASOUN D Final Result documented in this encounter Visit Diagnoses Diagnosis Urine retention- Primary Unspecified retention of urine documented in this encounter Administered Medications Inactive Administered Medications - up to 3 most recent administrations Medication Order MAR Action Action Date Dose Rate Site lidocaine (Uro-Jet) 2 % gel Urethral, Once, 1 dose, On Sun08/26/24 at 1230, RoutineIndications:Urine retention Given 08/26/2024 11:31 AM EDT 1 Application lidocaine (Uro-Jet) 2 % gel Urethral, Once, 1 dose, On Sun08/26/24 at 1315, RoutineIndications:Urine retention Given by Other 08/26/2024 12:15 PM EDT 1 Application documented in this encounter Additional Health Concerns Assessment Noted Time A fall risk assessment has been complete d for the patient 08/11/2024 10:45 AM EDT A Body Mass Index follow-up plan has been documented for the patient 08/23/2024 2:19 PM EDT documented as of this encounter Care Teams Case Liner Relationship Specialty Start Date End Date Ronny Belle MD [address] [place] [address] PCP - General 07/01/24 documented as of this encounter
--- OUTSIDE RECORDS SUMMARY | 2024-09-02 13:30 | XMS_ITS | Encounter Summary ---
Author Organization Healthcare Address [address] [place] [address] Care Team Providers Care Division Field Inspector Name Role Phone Ronny Belle MD Primary Care Provider [phone] Reason for Visit * Reason Comments void trial Encounter Details Date Type Department Care Team (Latest Contact Info) Description 09/02/2024 1:30 PM EDT Clinical Support [facility] [address], [address] [place] [address] Robyn Ferguson, RN Urinary retention [...] drink first t herminio in the morning (EYE-SALES SUPPORT ADMINISTRATOR) to steady your nerves or to get [...] clinic with any questions or concerns at [phone]. documented in this encounter Plan of Treatment Upcoming Encounters Date Type Department Care Team (Late st Contact Info) Description 12/09/2024 1:40 PM EDT Office Visit [facility] [address], [address] [place] [address] Carrie James PA [address] [place] [address] documented as of this encounter [...] documented as of this encounter Care Teams Division Field Inspector Relationship Specialty Start Date End Date Ronny eBlle MD [facility] [place] [address] PCP - General 07/01/24 documented as of this encounter
[2024-10-16] VITALS (29 sets, daily range): BP systolic 115–160; BP diastolic 53–122; PULSE 86–100; RESP 12–22; TEMP 37.1–37.6; O2SAT 88–95; BMI 30.7; BMI 32.4
--- NOTE | 2024-10-16 09:32 | PC.NURSE ---
ER at ; family at
[2024-10-16 09:37] LABS: Coronavirus 19, PCR Not Detected (NotDetected); Influenza A, PCR Not Detected (NotDetected); Influenza B, PCR Not Detected (NotDetected)
--- NOTE | 2024-10-16 09:38 | HMH.EDGENADL ---
Discharge Plan Disposition Patient Disposition: Admitted Clinical Impressions Clinical Impression: Weakness Discharge ED Provider: Hiren Glez General Adult HPI General Chief complaint: Weakness Stated complaint: fever, body aches, fluid in legs. Time Seen by Provider: 10/16/24 09:25 History of Present Illness HPI narrative: This is an 83-year-old male patient, with past medical history of COPD, hypertension, hyperlipidemia, BPH, who was presented to the emergency department today for evaluation of diffuse bodyaches, joint pain, and subjective fevers. The patient states that over the last couple of weeks he has had a significant accumulation of bilateral lower extremity edema. Since the onset of the symptoms he has had progressively worsening joint pain and diffuse bodyaches and he has now not been able to walk for the last several days. In addition to that the patient states that he woke up this morning and has had a new onset cough with production of phlegm. Last night before bed his daughter measured his temperature and found that it was elevated between 100-100.1 F. His daughter states that they went to a clinic yesterday and had blood work done that showed evidence of infection and the patient was prescribed cefdinir and his Lasix was increased to help improve his lower extremity edema. He is set to have an outpatient echocardiogram tomorrow. He does not particularly report chest pain or shortness of breath. He is not having abdominal pain. He is producing bowel movements normally, has not experienced hematochezia, no melena, no nausea, vomiting, or hematemesis. Related Data Home Medications ?Medication ?Instructions ?Recorded ?Confirmed albuterol sulfate 90 mcg/actuation 2 puff inhalation QIDP PRN 10/16/24 10/16/24 aerosol inhaler shortness of breath or wheezing amlodipine 10 mg-benazepril 20 mg 1 cap PO DAILY 10/16/24 10/16/24 capsule atorvastatin 20 mg tablet 20 mg PO DAILY 10/16/24 10/16/24 dutasteride 0.5 mg-tamsulosin ER 1 cap PO DAILY 10/16/24 10/16/24 0.4 mg capsule ext.release 24hr mphas ezetimibe 10 mg tablet 10 mg PO DAILY 10/16/24 10/16/24 furosemide 40 mg tablet (Lasix) 40 mg PO DAILYP PRN edema 10/16/24 10/16/24 Previous Rx's ?Medication ?Instructions ?Recorded fluticasone fur. 200 mcg-umeclid 1 inh inhalation DAILY #60 ea 06/24/24 62.5 mcg-vilant 25 mcg inhalat.powder (Trelegy Ellipta) cefdinir 300 mg capsule 300 mg PO BID #20 caps 10/13/24 Allergies Allergy/AdvReac Type Severity Reaction Status Date / Time Penicillins AdvReac Severe Other Verified 10/13/24 11:47 [facility] Disclaimer: The information contained in this section may have been updated after the patient was seen, as this information can be updated by other users. Medical History Organizing pneumonia COPD mixed type Lung mass Lung nodule Sinusitis Pyriform sinus mass History of smoking 30 or more pack years Chest pain, atypical Murmur, cardiac Normal coronary angiogram HLD (hyperlipidemia) Essential hypertension BPH (benign prostatic hyperplasia) Surgical History History of cystoscopy History of transurethral resection of prostate Family History Other Cancer Diabetes Social History Smoking Status: Former smoker tobacco type: cigarettes packs per day: 2 alcohol intake: never substance use type: denies use current occupational status: retired Travel in the last 8 weeks?: None household members: spouse housing: house Have you lived/traveled outside US in past 30 days?: No Contact w/someone who lives/traveled outside US past 30 days?: No Exposure to someone with infectious disease in past 14 days?: No Do you have a fever (greater than 100.4 F or 38 C)?: Yes Have you tested positive for COVID-19?: No Exposed to someone with COVID-19 in past 14 days?: No Do you have a sore throat?: No Do you have a cough?: No Do you have any weakness?: No Do you have any diarrhea?: No Are you experiencing any unusual bleeding?: No Do you have any muscle aches/pain?: Yes Do you have any abdominal pain?: No Are you experiencing loss of taste or smell?: No Other Medical History Have you received the Flu Vaccine for this season: No Have you received the Pneumonia Vaccine: No ROS Obtained: Yes Systems reviewed as appropriate & no additional complaints except as documented Physical Exam General General appearance: alert and in no apparent distress Head Head exam: atraumatic and normocephalic Eye Eye exam: Present normal appearance and PERRL ENT ENT exam: Present normal exam and normal oropharynx Neck Neck exam: Present normal inspection and full ROM Chest Chest inspection: Present normal inspection Respiratory Respiratory exam: Present normal lung sounds bilaterally Cardiovascular Cardiovascular exam: Present regular rate and normal rhythm Abdominal Exam Abdominal exam: Present soft and distention Extremities Exam Extremities exam: Present normal inspection and full ROM Neurological Exam Neurological exam: Present alert and oriented X3 Skin Skin exam: Present warm and dry Medical Decision Making Medical Records Screening: Per USPSTF and CDC recommendations, given the prevalence of disease in our region, it is our hospital?s policy to screen for HIV and viral Hepatitis for all patients aged 18 and over and those with ongoing risk factors. Bigg Inquiry Pt receiving controlled substance: No Bigg was queried for this patient: No Vital Signs: 10/16/24 09:37 10/16/24 09:44 10/16/24 09:51 Temperature 99.2 F 99.2 F Temperature Source Oral Oral Pulse Rate 96 H Pulse Rate [Right] 96 H Respiratory Rate 13 13 Blood Pressure 153/122 H Blood Pressure [Right Arm] 153/122 H Blood Pressure Mean Blood Pressure Mean [Right Arm] 132 Blood Pressure Source Automatic Cuff Blood Pressure Source [Right Arm] Automatic Cuff Blood Pressure Position Supine Blood Pressure Position [Right Arm] Supine 02 Sat by Pulse Oximetry 93 L 93 L 93 L Oxygen Delivery Method Room Air Room Air Room Air Oxygen Flow Rate (LPM) 10/16/24 10:00 10/16/24 10:15 10/16/24 10:30 Temperature Temperature Source Pulse Rate 100 H 100 H 97 H Pulse Rate [Right] Respiratory Rate 20 20 20 Blood Pressure 158/89 H 160/85 H 130/78 Blood Pressure [Right Arm] Blood Pressure Mean 97 92 89 Blood Pressure Mean [Right Arm] Blood Pressure Source Blood Pressure Source [Right Arm] Blood Pressure Position Blood Pressure Position [Right Arm] 02 Sat by Pulse Oximetry 94 L 94 L 93 L Oxygen Delivery Method Nasal Cannula Nasal Cannula Nasal Cannula Oxygen Flow Rate (LPM) 2 2 2 10/16/24 11:13 10/16/24 11:16 10/16/24 11:30 Temperature 99.7 F H Temperature Source Oral Pulse Rate 92 H 89 Pulse Rate [Right] Respiratory Rate 20 20 Blood Pressure 121/60 115/58 L Blood Pressure [Right Arm] Blood Pressure Mean 80 78 Blood Pressure Mean [Right Arm] Blood Pressure Source Blood Pressure Source [Right Arm] Blood Pressure Position Blood Pressure Position [Right Arm] 02 Sat by Pulse Oximetry 95 95 Oxygen Delivery Method Nasal Cannula Nasal Cannula Oxygen Flow Rate (LPM) 2 2 10/16/24 11:45 10/16/24 12:00 10/16/24 12:15 Temperature Temperature Source Pulse Rate 91 H 91 H Pulse Rate [Right] Respiratory Rate 18 14 Blood Pressure 124/61 129/56 L 120/68 Blood Pressure [Right Arm] Blood Pressure Mean 78 82 Blood Pressure Mean [Right Arm] Blood Pressure Source Blood Pressure Source [Right Arm] Blood Pressure Position Blood Pressure Position [Right Arm] 02 Sat by Pulse Oximetry 94 L 93 L Oxygen Delivery Method Nasal Cannula Oxygen Flow Rate (LPM) 2 10/16/24 12:30 10/16/24 12:45 10/16/24 13:01 Temperature Temperature Source Pulse Rate 95 H 91 H 93 H Pulse Rate [Right] Respiratory Rate 19 12 22 Blood Pressure 125/72 126/53 L 118/61 Blood Pressure [Right Arm] Blood Pressure Mean Blood Pressure Mean [Right Arm] Blood Pressure Source Blood Pressure Source [Right Arm] Blood Pressure Position Blood Pressure Position [Right Arm] 02 Sat by Pulse Oximetry 93 L 93 L 93 L Oxygen Delivery Method Oxygen Flow Rate (LPM) 10/16/24 13:15 10/16/24 13:30 10/16/24 13:46 Temperature Temperature Source Pulse Rate 92 H 95 H 91 H Pulse Rate [Right] Respiratory Rate 19 17 16 Blood Pressure 125/71 129/57 L 127/65 Blood Pressure [Right Arm] Blood Pressure Mean Blood Pressure Mean [Right Arm] Blood Pressure Source Blood Pressure Source [Right Arm] Blood Pressure Position Blood Pressure Position [Right Arm] 02 Sat by Pulse Oximetry 92 L 92 L 92 L Oxygen Delivery Method Oxygen Flow Rate (LPM) 10/16/24 14:00 10/16/24 14:15 10/16/24 14:30 Temperature Temperature Source Pulse Rate 95 H 89 92 H Pulse Rate [Right] Respiratory Rate 14 17 17 Blood Pressure 125/58 L 124/66 117/64 Blood Pressure [Right Arm] Blood Pressure Mean Blood Pressure Mean [Right Arm] Blood Pressure Source Blood Pressure Source [Right Arm] Blood Pressure Position Blood Pressure Position [Right Arm] 02 Sat by Pulse Oximetry 92 L 93 L 93 L Oxygen Delivery Method Oxygen Flow Rate (LPM) 10/16/24 14:45 10/16/24 15:01 10/16/24 15:15 Temperature Temperature Source Pulse Rate 89 89 87 Pulse Rate [Right] Respiratory Rate 16 18 16 Blood Pressure 127/65 132/72 128/62 Blood Pressure [Right Arm] Blood Pressure Mean Blood Pressure Mean [Right Arm] Blood Pressure Source Blood Pressure Source [Right Arm] Blood Pressure Position Blood Pressure Position [Right Arm] 02 Sat by Pulse Oximetry 93 L 93 L 94 L Oxygen Delivery Method Oxygen Flow Rate (LPM) 10/16/24 15:30 10/16/24 15:45 10/16/24 15:59 Temperature 99.4 F Temperature Source Pulse Rate 89 86 86 Pulse Rate [Right] Respiratory Rate 16 15 20 Blood Pressure 131/66 124/68 124/68 Blood Pressure [Right Arm] Blood Pressure Mean Blood Pressure Mean [Right Arm] Blood Pressure Source Blood Pressure Source [Right Arm] Blood Pressure Position Blood Pressure Position [Right Arm] 02 Sat by Pulse Oximetry 94 L 94 L Oxygen Delivery Method Oxygen Flow Rate (LPM) Lab Data Lab Results 10/16/24 09:29: Chlamy pneumoniae PCR Not detected, Adenovirus (PCR) Not detected, B. pertussis DNA (PCR) Not detected, Coronavirus OC43 (PCR) Not detected, Coronavirus HKU1 (PCR) Not detected, Coronavirus 229E (PCR) Not detected, SARS-CoV-2 (PCR) Not detected 10/16/24 09:29: SARS-CoV-2 (PCR) Not detected 10/16/24 09:29: SARS-CoV-2 (PCR) Not detected, Coronavirus NL63 (PCR) Not detected, Human Metapneumovir PCR Not detected, Influenza A (H1) PCR Not detected, Influ A (H1N1/09) PCR Not detected, Influenza A (H3) PCR Not detected, Influenza Type A (PCR) Not detected 10/16/24 09:29: Influenza Type A (PCR) Not detected, Influenza A Untype (PCR) Not detected, Influenza Type B (PCR) Not detected 10/16/24 09:29: Influenza Type B (PCR) Not detected 10/16/24 09:29: Influenza Type B (PCR) Not detected, M. pneumoniae (PCR) Not detected, Parainfluenza 1 (PCR) Not detected, Parainfluenza 2 (PCR) Not detected, Parainfluenza 3 (PCR) Not detected, Parainfluenza 4 (PCR) Not detected, RSV (PCR) Not detected 10/16/24 09:29: RSV (PCR) Not detected, Rhinovirus (PCR) Not detected, Entero/Rhino (PCR) Not detected 10/16/24 09:39: VBG pH 7.41, VBG pCO2 40.4, VBG pO2 49.9 H, VBG HCO3 25.1, VBG Total CO2 26.3, VBG O2 Saturation 84.2 H, VBG Base Excess 0.5, VBG Lactic Acid 2.3 H 10/16/24 09:40: WBC 14.2 H, RBC 3.96 L, Hgb 11.4 L, Hct 35.8 L, MCV 90.4, MCH 28.8, MCHC 31.8, RDW 14.6, Plt Count 563 H, MPV 9.0, Neut % (Auto) 80.2 H, Lymph % (Auto) 8.9 L, [place] % (Auto) 8.9, Eos % (Auto) 0.6, Baso % (Auto) 0.3, Neut # (Auto) 11.4 H, Lymph # (Auto) 1.3, [place] # (Auto) 1.3 H, Eos # (Auto) 0.1, Baso # (Auto) 0.0, Total Counted 100, Neutrophils % (Manual) 81 H, Lymphocytes % (Manual) 12, Monocytes % (Manual) 6, Eosinophils % (Manual) 1, Platelet Estimate Moderate increase, RBC Morphology Normal, Sodium 136, Potassium 4.9, Chloride 96 L, Carbon Dioxide 30, Anion Gap 14.9, BUN 25 H, Creatinine 1.30 H, Estimated Creat Clear 61, Estimated GFR 53 L, Est GFR ( Amer) 64, Glucose 102 H, Calcium 9.0, Total Bilirubin 0.4, AST 59, ALT 60, Alkaline Phosphatase 96, Total Creatine Kinase 34 L, Troponin I < 0.01, C-Reactive Protein 196.1 H, NT-Pro-B Natriuret Pep 522 H, Total Protein 7.4, Albumin 3.7, Globulin 3.7 H, Albumin/Globulin Ratio 1.0 L, Lipase 63, HCV Ab YEFRI w/Rflx PCR Qn Negative, HIV Ag/Ab Combo Qual Negative 10/16/24 10:27: Urine Color Yellow, Urine Appearance Slightly cloudy, Urine pH 6.0, Ur Specific Hope 1.015, Urine Protein Trace, Urine Glucose (UA) Negative, Urine Ketones Negative, Urine Blood Trace-i, Urine Nitrate Negative, Urine Bilirubin Negative, Urine Urobilinogen 0.2, Ur Leukocyte Esterase 2+ A, Urine RBC 3-5, Urine WBC Tntc, Ur Squamous Epith Cells Occasional, Urine Bacteria 1+ 10/16/24 12:48: Troponin I < 0.01 10/16/24 14:00: Lactate 0.8 10/16/24 14:24: ESR > 140 H 10/16/24 09:40 10/16/24 09:40 Orders (Tests/Meds): ED MEDICATIONS Generic Name Dose Route Start Last Admin Trade Name Freq PRN Reason Stop Dose Admin Ceftriaxone Sodium 1 gm/ 50 mls @ 100 mls/hr 10/17/24 09:00 Sodium Chloride IV 10/27/24 08:59 Q24H FRAN Discontinued Medications Generic Name Dose Route Start Last Admin Trade Name Freq PRN Reason Stop Dose Admin Ceftriaxone Sodium 1 gm/ 50 mls @ 100 mls/hr 10/16/24 14:30 Sodium Chloride IV 10/16/24 14:59 ONCE ONE Iopamidol 80 ml 10/16/24 10:49 10/16/24 10:52 Iopamidol-370 (76%);100ml Bottle IV 10/16/24 10:50 80 ml ONCE ONE Administration Iopamidol 80 ml 10/16/24 10:59 10/16/24 11:02 Iopamidol-370 (76%);100ml Bottle IV 10/16/24 11:00 80 ml ONCE ONE Administration Morphine Sulfate 2 mg 10/16/24 09:41 10/16/24 10:11 Morphine 2mg/Ml Syringe IV 10/16/24 09:42 2 mg ONCE ONE Administration Ondansetron HCl 4 mg 10/16/24 09:41 10/16/24 10:11 Ondansetron 4mg/2ml Vial IV 10/16/24 09:42 4 mg ONCE ONE Administration Sodium Chloride 40 ml 10/16/24 10:49 10/16/24 10:52 0.9 % Sodium Chloride 50 Ml Vial IV 10/16/24 10:50 40 ml ONCE ONE Administration Sodium Chloride 10 ml 10/16/24 10:49 10/16/24 10:52 Sodium Chloride 0.9% 10ml Syr (Rad Only) IV 10/16/24 10:50 10 ml ONCE ONE Administration Sodium Chloride 40 ml 10/16/24 10:59 10/16/24 11:02 0.9 % Sodium Chloride 50 Ml Vial IV 10/16/24 11:00 40 ml ONCE ONE Administration ORDERS Category Date Time Status CT abdomen pelvis w con Stat Cat Scan 10/16/24 10:[address] angio chest PE protocol Stat Cat Scan 10/16/24 10:09 Completed POCUS Point of Care (ER Only) Stat Exams 10/16/24 09:42 Completed Portable CXR [XR chest portable] Stat Exams 10/16/24 09:41 Completed BNP [NT Pro Brain Natriuretic Pep.] Stat Lab 10/16/24 09:40 Completed CBC Man Diff [Complete Blood Count Man Dif] Stat Lab 10/16/24 09:40 Completed CK [Creatine Kinase] Stat Lab 10/16/24 09:40 Completed CMP [Comprehensive Metabolic Panel] Stat Lab 10/16/24 09:40 Completed CRP [C-Reactive Protein] Stat Lab 10/16/24 09:40 Completed ESR [Erythrocyte Sedimentation Rate] Stat Lab 10/16/24 14:24 Completed HIV Combo Stat Lab 10/16/24 09:40 Completed Hepatitis C Ab Qual. W/ RFX Stat Lab 10/16/24 09:40 Completed Lactic Acid Follow Up (RFLX 1) Stat Lab 10/16/24 14:00 Completed Lipase Stat Lab 10/16/24 09:40 Completed Mini Respiratory Panel Stat Lab 10/16/24 09:29 Completed Rapid PCR Covid and Flu A/B Stat Lab 10/16/24 09:29 Completed Troponin I Q3H Lab 10/16/24 12:48 Completed Troponin I Q3H Lab 10/16/24 15:45 Ordered Troponin I Stat Lab 10/16/24 09:40 Completed Urinalysis and Microscopic Stat Lab 10/16/24 10:27 Completed Blood Culture Stat Micro 10/16/24 10:21 Received Urine Culture Stat Micro 10/16/24 10:27 Received VBG [Venous Blood Gas] Stat RT 10/16/24 09:39 Completed ECG Data Tracing #1: I reviewed this ECG and interpreted as documented below: EKG personally interpreted by me demonstrates normal sinus rhythm with a rate of 94 bpm, normal axis, WA prolongation consistent with first-degree AV block, narrow QRS, no QTc prolongation. No ST elevation or depression. No overt signs of ischemia or arrhythmia. There is a wandering baseline present secondary to the patient's tachypnea. Medical Decision Narrative: In summary, this is an 83-year-old male patient who is presenting to the emergency department today for fevers observed at home last night with new onset cough with production of phlegm in addition to diffuse bodyaches and joint pain. Comorbidities include hypertension, hyperlipidemia, BPH, and history of COPD. The patient does not have any documented echocardiograms on file so it is unclear whether he has an existing history of heart failure. On initial evaluation of the patient he was sitting upright in no acute distress and was nontoxic in appearance. He is hemodynamically stable, saturating well on room air, and is neurologically intact. The patient on examination is tachypneic. He is moving air well bilaterally. I do not appreciate any crackles or rhonchi on exam. His radial pulses are symmetric. He does have significant bilateral pitting edema present. His abdomen is distended and is firm to palpation. He does not demonstrate any evidence of tenderness on exam, however I do not feel that his abdominal exam is reliable. Differential includes COPD exacerbation, viral syndrome, lobar pneumonia, pulmonary edema, heart failure, intra-abdominal abscess, diverticulitis, cholecystitis, urinary tract infection, bacteremia, among others. Given the fact that this patient does not have a pre-existing history of heart failure on file and he is tachypneic with evidence of volume overload I do feel that it is prudent to rule out a pulmonary embolism. We will assess for this further with a CT PE study. In addition to this given his unreliable abdominal exam we will obtain a CT scan of his abdomen pelvis with contrast. We will proceed with hematologic labs. Hematologic labs personally interpreted by me demonstrate a leukocytosis with a white blood cell count of 14.2. This is increased from his last blood draw on the seventh which showed a leukocytosis of 13. Patient is anemic but this is stable from prior. COVID and flu swabs are negative. VBG demonstrates a relative alkalosis with a pCO2 of 40. This is likely secondary to the patient's tachypnea. CMP is largely unremarkable. Troponin is undetectably low. BNP is elevated at 522. No other significant derangements. While the patient was in the emergency department I did perform a bedside POCUS assessment of his heart and lungs. I do not appreciate any pleural effusions. There is B-lines present consistent with pulmonary edema in his bilateral lung arias. His ejection fraction as estimated by the endpoint septal separation is estimated to be normal. His RV to LV ratio is less than 1. No pericardial effusion noted. CTA of the chest was personally interpreted by me and I do not identify any saddle pulmonary embolus. Official radiology read is in agreement and states that there is no evidence of pulmonary embolus. They also state that there is a previous masslike infiltrate in the right lower lobe that is markedly decreased in size. CT scan of the abdomen and pelvis shows redemonstrated bilateral renal cysts as well as a mass in the urinary bladder. Otherwise there is no acute findings. My overall impression of this patient's presentation is that he likely has a viral syndrome and is now experiencing significant muscle weakness and bodyaches and pain. I am not reassured by the fact that he is unable to walk independently on his own whereas he was able to do this a week ago. Therefore I have had an interactive discussion with the internal medicine service who has agreed to evaluate the patient in the emergency department. After our discussion of their evaluation they have agreed to admit the patient to their service and accept primary responsibility of the patient moved for. Critical Care Critical Care Time Critical Care Time: No
--- NOTE | 2024-10-16 09:41 | XR_ITS ---
FINAL REPORT CLINICAL HISTORY: Increased work of breathing COMPARISON: 10/13/2024 FINDINGS: CHEST SINGLE VIEW: Mild cardiomegaly is present. The mediastinum is normal. There is no focal infiltrate or edema. Scarring is present at the lung bases bilaterally. There are no pleural effusions. There is no pneumothorax. There is no osseous abnormality. IMPRESSION: No acute cardiopulmonary process Reviewed, Interpreted and Dictated by Larry Camacho MD Transcribed by Izabela Chavez Authenticated and [facility]
--- NOTE | 2024-10-16 09:45 | PC.NURSE ---
respiratory notified of vbg
[2024-10-16 09:46] LABS: Hematocrit 35.8 % (42.0-52.0); Hemoglobin 11.4 g/dL (14.1-18.0); Mean Corpuscular HGB Conc 31.8 g/dL (31.8-35.4); Mean Corpuscular Hemoglobin 28.8 pg (27.0-31.2); Mean Corpuscular Volume 90.4 fl (80-94); Platelet Count 563 K/mm3 (142-424); Red Blood Count 3.96 M/mm3 (4.60-6.20); White Blood Count 14.2 K/mm3 (4.8-10.8)
--- NOTE | 2024-10-16 09:46 | PC.NURSE ---
XR AT BEDSIDE
--- NOTE | 2024-10-16 09:46 | PC.NURSE ---
DR RODRÍGUEZ AT BEDSIDE
--- OUTSIDE RECORDS SUMMARY | 2024-10-16 09:52 | XMS_ITS | Encounter Summary ---
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 MANAGER) to steady your nerves or to get [...] Description 12/09/2024 1:40 PM EDT Office Visit [facility] [address] [place] [address] Carrie James PA [address] [place] [address] documented as of this encounter Visit Diagnoses Not on filedocumented in this encounter Additional Health Concerns Assessment Noted Time A fall risk assessment has been complete d for the patient 08/11/2024 10:45 AM EDT A Body Mass Index follow-up plan has been documented for the patient 08/23/2024 2:19 PM EDT documented as of this encounter Care Teams Ada Accommodation Consultant Relationship Specialty Start Date End Date Ronny Belle MD [facility] [place] [address] PCP - General 07/01/24 documented as of this encounter
--- OUTSIDE RECORDS SUMMARY | 2024-10-16 09:52 | XMS_ITS | Encounter Summary ---
Author Organization Healthcare Address [address] [place] [address] Care Team Providers Care Coal Bagger Name Role Phone Ronny Belle MD Primary Care Provider [phone] Encounter Details Date Type Department Care Team (Late st Contact Info) Description 08/26/2024 Telephone [facility] [address] [place] [address] Ben Harman MD [address] [place] [address] Social History Tobacco Use Types [...] drink first t herminio in the morning (EYE-NURSE LDR) to steady your nerves or to get [...] Nurse visit added for 1100. Address for [facility] parking garage and instructions for how to get to the clinic from the garage provided. documented in this encounter Plan of Treatment Upcoming Encounters Date Type Department Care Team (Late st Contact Info) Description 12/09/2024 1:40 PM EDT Office Visit [facility] [address] [place] [address] Carrie James PA [address] [place] [address] documented as of this encounter Visit Diagnoses Not on filedocumented in this encounter Additional Health Concerns Assessment Noted Time A fall risk assessment has been complete d for the patient 08/11/2024 10:45 AM EDT A Body Mass Index follow-up plan has been documented for the patient 08/23/2024 2:19 PM EDT documented as of this encounter Care Teams Coal Bagger Relationship Specialty Start Date End Date Ronny Belle MD [address] [place] [address] PCP - General 07/01/24 documented as of this encounter
--- OUTSIDE RECORDS SUMMARY | 2024-10-16 09:52 | XMS_ITS | Encounter Summary ---
Author Organization Healthcare Address [address] [place] [address] Care Team Providers Care Welder And Fitter Name Role Phone Ronny Belle MD Primary Care Provider [phone] Encounter Details Date Type Department Care Team (Late st Contact Info) Description 09/04/2024 Results Follow-Up [facility] [address] [place] [address] Ben Harman MD [address] [place] [address] Social History Tobacco Use Types [...] drink first t herminio in the morning ([employer]) to steady your nerves or to get [...] with us as needed Surgical Pathology Exam: [id number] Order: [id number] Status: Final result Dx: Hematuria, unspecified type; Urinary ... 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 documented in this encounter Plan of Treatment Upcoming Encounters Date Type Department Care Team (Late st Contact Info) Description 12/09/2024 1:40 PM EDT Office Visit [facility] [address] [place] [address] Carrie James PA [address] [place] [address] documented as of this encounter Visit Diagnoses Not on filedocumented in this encounter Additional Health Concerns Assessment Noted Time A fall risk assessment has been complete d for the patient 09/02/2024 1:40 PM EDT A Body Mass Index follow-up plan has been documented for the patient 09/02/2024 3:48 PM EDT documented as of this encounter Care Teams Welder And Fitter Relationship Specialty Start Date End Date Ronny Belle MD [address] [place] [address] PCP - General 07/01/24 documented as of this encounter
--- OUTSIDE RECORDS SUMMARY | 2024-10-16 09:52 | XMS_ITS | Clinical Summary ---
Author Organization Healthcare Address [address] [place] [address] Care Team Providers Care Gun Examiner Name Role Phone Ronny Belle MD Primary Care Provider Allergies Active Allergy Reactions Criticality Noted Date [...] needed for headaches, pain or fever. [facility], monthly prescriptions (30 days) can be [...] Department Care Team Description 09/04/2024 Results Follow-Up [facility] Urology [address], [address] [place] [address] Ben Harman MD 09/02/2024 1:30 PM EDT Clinical Support [facility] Urology [address], [facility] [place] [address] Robyn Ferguson RN Urinary retention [R33.9] (Primary Dx) 09/02/2024 Travel 08/26/2024 11:00 AM EDT Clinical Support [facility] Urology [address], [place] [address] Robyn Ferguson RN Urine retention (Primary Dx) 08/26/2024 Travel 08/26/2024 Telephone [facility] Urology 0 [facility], [address] [place] [phone] Ben Harman MD 08/22/2024 12:09 PM EDT Anesthesia Event [facility] O[facility]ATING RO[facility] [address] [place] [address] Jordan Reaves DO Gordon, Mark W, OFE 08/22/2024 11:42 AM EDT - 08/22/2024 1:32 PM EDT Surgery [facility] [address] [place] [phone] Ben Harman MD TURBT, TURP, USING BIPOLAR CAUTERY PROBE, WITH SALINE IRRIGATION 08/22/2024 Travel 08/22/2024 Orders Only External Location [address] [place] [address] Provider, External 08/21/2024 11:48 PM EDT - 08/23/2024 4:02 PM EDT Hospital Encounter [facility] Inpatient [address] [place] [address] Jay Salvador MD Belcher, Christopher N, MD Desai, Sameer M, MD Hensley, Patrick J, MD Hematuria, unspecified type (Primary Dx); Urinary retention; Acute UTI (urinary tract infection) Discharge Disposition: Home or Self Care 08/21/2024 Travel 08/12/2024 Telephone [facility] Urology [address], [address] [place] [address] Ben Harman MD 08/11/2024 11:15 AM EDT Consult Medical Office Building Urology [address] [facility], [address] [place] [address] Ben Harman MD Prostate mass (Primary Dx) 08/11/2024 Telephone [facility] Pre-op Clinic [address], [address] [place] [address] Hugo Mnechaca MD 08/11/2024 Travel from Last 3 Months [...] drink first t herminio in the morning (EYE-SALT GRINDER) to steady your nerves or to get [...] Description 12/09/2024 1:40 PM EDT Office Visit [facility] [address], [address] [place] [address] Carrie James PA [address] [place] [address] Health Maintenance Due Date Last Done Comments [facility]-Medicare Annual Wellness (AWV) 1940 [facility]-/Child/Adol SDOH Screenings 1940 [facility]- SDOH Screenings 1958 [facility]-Adult SDOH Screenings 1958 [facility]-DTaP,Tdap,and Td Vaccines (1 - Tdap) 10/29/1959 [facility]-Pneumococcal Vaccine: 50+ Years (1 of 1 - PCV) 1990 [facility]-Zoster Vaccines (1 of 2) 1990 [facility]-RSV Vaccine: 60+ Years or (1 - 1-dose 75+ series) 10/29/2015 [id number] Vaccine ( - season) 2023 01/25/2022, 02/09/2021, [...] ANESTHESIA PLACEHOLDER Routine 08/22/2024 12:25 PM EDT OK AN ELECTIVE ENDOTRACHEAL AIRWAY Routine 08/22/2024 12:25 [...] Bladder Volume (08/26/2024 11:15 AM EDT) Pathologist [facility] Urine, Volume 616 mL IMAGING Anatomical Region Laterality Modality Other Carrie ALVAREZ IMG POINT OF CARE ULTRASOUN D Final Result * (ABNORMAL) CBC W/O Differential (08/23/2024 4:12 AM EDT) WBC Count 11.72(H) 3.70 - 10.30 10*3/uL LAB HEMATOLOGY METHOD 08/23/2024 4:32 AM EDT [facility] RBC Count 4.13(L) 4.60 - 6.10 10*6/uL LAB HEMATOLOGY METHOD 08/23/2024 4:32 AM EDT [facility] HGB 12.1(L) 13.7 - 17.5 g/dL LAB HEMATOLOGY METHOD 08/23/2024 4:32 AM EDT [facility] HCT 37.0(L) 40.0 - 51.0 % LAB HEMATOLOGY METHOD 08/23/2024 4:32 AM EDT [facility] Platelet Count 365 155 - 369 10*3/uL LAB HEMATOLOGY METHOD 08/23/2024 4:32 AM EDT [facility] MCV 90 79 - 98 fL LAB HEMATOLOGY METHOD 08/23/2024 4:32 AM EDT [facility] MCH 29.3 26.0 - 32.0 pg LAB HEMATOLOGY METHOD 08/23/2024 4:32 AM EDT [facility] MCHC 32.7 30.7 - 35.5 g/dL LAB HEMATOLOGY METHOD 08/23/2024 4:32 AM EDT [facility] RDW 14.9(H) 11.5 - 14.5 % LAB HEMATOLOGY METHOD 08/23/2024 4:32 AM EDT [facility] MPV 9.8 8.8 - 12.5 fL LAB HEMATOLOGY METHOD 08/23/2024 4:32 AM EDT [facility] nRBC 0.0 <=0.0 per 100 WBCs LAB HEMATOLOGY METHOD 08/23/2024 4:32 AM EDT [facility] Blood Venous blood specimen / Unknown Venipuncture / Unknown 08/23/2024 4:12 AM EDT 08/23/2024 4:21 AM EDT us Ben Harman MD LAB BLOOD ORDERABLES Final Result Performing Organization Address City/State/[facility] Co de Phone Number [facility] [address] [place] [address] * (ABNORMAL) Basic Metabolic Panel, Plasma (08/23/2024 4:12 AM EDT) Glucose, Plasma 105(H) 74 - 99 mg/dL 08/23/2024 4:52 AM EDT [facility] BUN, Plasma 13 8 - 23 mg/dL 08/23/2024 4:52 AM EDT [facility] Creatinine, Plasma 1.13 0.70 - 1.20 mg/dL 08/23/2024 4:52 AM EDT [facility] BUN/Creatinine Ratio 12 08/23/2024 4:52 AM EDT [facility] Sodium, Plasma 139 136 - 145 mmol/L 08/23/2024 4:52 AM EDT [facility] Potassium, Plasma 4.7 3.6 - 4.9 mmol/L 08/23/2024 4:52 AM EDT [facility] Chloride, Plasma 107 97 - 107 mmol/L 08/23/2024 4:52 AM EDT [facility] CO2, Plasma 21(L) 22 - 29 mmol/L 08/23/2024 4:52 AM EDT [facility] Anion Gap 11 6 - 16 mmol/L 08/23/2024 4:52 AM EDT [facility] Total Calcium, Plasma 8.5(L) 8.9 - 10.2 mg/dL 08/23/2024 4:52 AM EDT [facility] eGFRcr 64.5 mL/min/1.7 3m*2 08/23/2024 4:52 AM EDT [facility] Comment:Reported eGFRcr in m L/min/1.73m2 is based the CKD-EPI 2020 equation that does not use a race coefficient. Blood Venous blood specimen / Unknown Venipuncture / Unknown 08/23/2024 4:12 AM EDT 08/23/2024 4:22 AM EDT us Ben Harman MD LAB BLOOD ORDERABLES Final Result [facility] [address] [place] [address] * Surgical Pathology Exam (08/22/2024 1:41 PM EDT) Case Report Surgical Pathology Case: [id number] Authorizing Provider: Ben Harman MD Collected: 08/22/2024 1341 Ordering Location: [facility] A OPERATING ROOM Received: 08/22/2024 1431 Pathologist: Bola Harrison MD Specimen: Prostate, Prostate Chips 08/26/2024 1:43 PM EDT [facility] Final Diagnosis PROSTATE, TRANSURETHRAL RESECTION OF PROSTATE: - 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 PROSTATE CHIPS Received in formalin labeled prostate chips are multiple pieces of pink-cherry soft tissue admixed with red-brown hemorrhagic material measuring 9.0 x 6.0 x 0.8 cm in aggregate and weighing 23.8 g. Player Piano Technician sections are submitted in cassettes [id number]. Cold Time: 10m Ciarra Aayush Rosy 08/26/2024 1:43 PM EDT [facility] Note: A resident was involved in the service. I attest I examined the relevant preparations for the specimens and confirmed the diagnosis or interpretation. 08/26/2024 1:43 PM EDT [facility] Tissue Prostate / Unknown 08/22/2024 1:41 PM EDT 08/22/2024 2:31 PM EDT Comment:Pre-op diagnosis: Hematuria, unspecified type [R31.9] Urinary retention [R33.9] us Ben Harman MD LAB PATHOLOGY ORDERABLES Fi nal Result [facility] [address] [place] [address] * OK AN ELECTIVE ENDOTRACHEAL AIRWAY, PB ANESTHESIA PLACEHOLDER (08/22/2024 12:25 PM EDT) Narrative Mamadou Donohue CRNA - 08/22/2024 12:25 PM EDT Mamadou Donohue CRNA 08/22/2024 12:40 PM Airway Date/Time: 08/22/2024 12:25 PM Reason: elective Airway not difficult General Information and Staff Patient location during procedure: OR GARNISHMENT SPECIALIST: Mamadou Donohue CRNA Performed: GARNISHMENT SPECIALIST Patient Condition Indications for airway management: anesthesia [...] ORDERABLES Final Re sult Performing Organization Address [facility] [address] [facility] Co de Phone Number [facility] [address] [place] [address] * Urine Fischer Panel (08/22/2024 1:41 AM EDT) Extra Sent for Culture 08/22/2024 3:01 AM EDT [facility] Urine Urine specimen obtained by clean catch procedure / Unknown Non-blood Collection / Unknown 08/22/2024 1:41 AM EDT 08/22/2024 1:58 AM EDT us Jay Salvador MD LAB URINE ORDERABLES Final Re sult Performing Organization Address [facility] Co de Phone Number [facility] [address] [place] [address] * Urinalysis Microscopic Examination (08/22/2024 1:41 AM EDT) Urine Urine specimen obtained by clean catch procedure / Unknown Non-blood Collection / Unknown 08/22/2024 1:41 AM EDT 08/22/2024 1:52 AM EDT us Jay Salvador MD LAB URINE ORDERABLES Final Re sult Performing Organization Address [facility] de Phone Number [facility] [address] [place] [address] * (ABNORMAL) Urinalysis with reflex microscopic (Culture NOT Included) (08/22/2024 1:41 AM EDT) Color, Urine Red LAB URINALYSIS - AUTOMATED METHOD 08/22/2024 2:37 AM EDT [facility] Clarity, Urine Cloudy LAB URINALYSIS - AUTOMATED METHOD 08/22/2024 2:37 AM EDT [facility] Spec [place], Urine 1.015 1.005 - 1.030 LAB URINALYSIS - AUTOMATED METHOD 08/22/2024 2:37 AM EDT [facility] pH, Urine 6.5 5.0 - 8.0 LAB URINALYSIS - AUTOMATED METHOD 08/22/2024 2:37 AM EDT [facility] Protein, Urine >=300(A) Negative mg/dL LAB URINALYSIS - AUTOMATED METHOD 08/22/2024 2:37 AM EDT [facility] Glucose, Urine 100(A) Negative mg/dL LAB URINALYSIS - AUTOMATED METHOD 08/22/2024 2:37 AM EDT [facility] Ketones, Urine 15(A) Negative mg/dL LAB URINALYSIS - AUTOMATED METHOD 08/22/2024 2:37 AM EDT [facility] Blood, Urine Large(A) Negative LAB URINALYSIS - AUTOMATED METHOD 08/22/2024 2:37 AM EDT [facility] Bilirubin, Urine Large(A) Negative LAB URINALYSIS - AUTOMATED METHOD 08/22/2024 2:37 AM EDT [facility] Urobilinogen, Urine >=8.0(A) 0.2 to 1.0 mg/dL LAB URINALYSIS - AUTOMATED METHOD 08/22/2024 2:37 AM EDT [facility] Leukocytes, Urine Large(A) Negative LAB URINALYSIS - AUTOMATED METHOD 08/22/2024 2:37 AM EDT [facility] Nitrite, Urine Positive(A) Negative LAB URINALYSIS - AUTOMATED METHOD 08/22/2024 2:37 AM EDT [facility] RBC, Urine >50(A) 0 to 3 /HPF 08/22/2024 2:37 AM EDT [facility] Comment:This result was prev iously suppressed from the chart. WBC, Urine Unable to estimate due to obscuring RBC's (UNERBC) 0 to 5 /HPF 08/22/2024 2:37 AM EDT [facility] Comment:This result was prev iously suppressed from the chart. Squamous Epithelial Cells Unable to estimate due to obscuring RBC's (UNERBC) 0 to 5 /HPF 08/22/2024 2:37 AM EDT [facility] Comment:This result was prev iously suppressed from the chart. Hyaline Casts Unable to estimate due to obscuring RBC's (UNERBC) 0 to 5 /LPF 08/22/2024 2:37 AM EDT [facility] Comment:This result was prev iously suppressed from the chart. Bacteria, Urine Present Negative 08/22/2024 2:37 AM EDT [facility] Comment:This result was prev iously suppressed from the chart. Urine Urine specimen obtained by clean catch procedure / Unknown Non-blood Collection / Unknown 08/22/2024 1:41 AM EDT 08/22/2024 1:52 AM EDT Narrative [facility] - 08/22/2024 2:37 AM EDT Urinalysis dipstick results may be inaccurate due to specimen color or an interfering substance in the specimen. Performed by manual method us Jay Salvador MD LAB URINE ORDERABLES Final Re sult Performing Organization Address City/[facility] [address] [facility]/ZIP Co de Phone Number [facility] [address] [place] [address] * (ABNORMAL) Urine Culture (08/22/2024 1:41 AM EDT) Pathologist [facility] Culture <10,000 CFU/mL Staphylococcus coagulase negative(A) 08/23/2024 8:16 AM EDT [facility] Urine Urine specimen obtained by clean catch procedure / Unknown Non-blood Collection / Unknown 08/22/2024 1:41 AM EDT 08/22/2024 1:58 AM EDT us Jay Salvador MD LAB MICROBIOLOGY - GENERAL OR DERABLES Final Result Performing Organization Address [facility]/ZIP Co de Phone Number [facility] [address] [place] [address] * ED HIV 1/2 Antibody/Antigen Screen w/Reflex to HIV 1/2 Differentiation (08/22/2024 1:26 AM EDT) HIV 1 & 2 Antibody/Antigen Screen Non Reactive Non Reactive 08/22/2024 2:15 AM EDT [facility] Comment:Screening for HIV 1 & 2 antibodies, and P24 antigen is NONREACTIVE. No confirmatory testing is required. Blood Venous blood specimen / Unknown Venipuncture / Unknown 08/22/2024 1:26 AM EDT 08/22/2024 1:34 AM EDT us Jay Salvador MD LAB BLOOD ORDERABLES Final Re sult Performing Organization Address [facility] Co de Phone Number [facility] [address] [place] [address] * Hepatitis C Antibody - ED (08/22/2024 1:26 AM EDT) Hepatitis C Antibody Negative Negative 08/22/2024 2:15 AM EDT [facility] Blood Venous blood specimen / Unknown Venipuncture / Unknown 08/22/2024 1:26 AM EDT 08/22/2024 1:34 AM EDT Jay Salvador MD LAB BLOOD ORDERABLES Final Re sult Performing Organization Address [facility] de Phone Number [facility] [address] [place] [address] * PT-INR (08/22/2024 1:26 AM EDT) Pathologist [facility] Prothrombin Time 12.8 12.0 - 14.3 sec 08/22/2024 1:58 AM EDT [facility] INR 1.0 0.9 - 1.1 08/22/2024 1:58 AM EDT [facility] Blood Venous blood specimen / Unknown Venipuncture / Unknown 08/22/2024 1:26 AM EDT 08/22/2024 1:33 AM EDT Narrative [facility] - 08/22/2024 1:58 AM EDT OPTIMAL INR RANGES FOR PATIENT ON ORAL ANTICOAGULANT THERAPY Prevention of venous thromboembolism INR 2.0 to 3.0 In patients with heart disease: Atrial fibrillation INR 2.0 to 3.0 Valvular heart disease INR 2.0 to 3.0 Tissue heart valves INR 2.0 to 3.0 Mechanical prosthetic valves INR 2.5 to 3.5 Prevention of recurrent FL INR 2.5 to 3.5 us Jay Salvador MD LAB BLOOD ORDERABLES Final Re sult [facility] [address] [place] [address] * (ABNORMAL) CBC w/diff (08/22/2024 1:26 AM EDT) WBC Count 9.33 3.70 - 10.30 10*3/uL LAB HEMATOLOGY METHOD 08/22/2024 1:35 AM EDT [facility] RBC Count 4.39(L) 4.60 - 6.10 10*6/uL LAB HEMATOLOGY METHOD 08/22/2024 1:35 AM EDT [facility] HGB 12.9(L) 13.7 - 17.5 g/dL LAB HEMATOLOGY METHOD 08/22/2024 1:35 AM EDT [facility] HCT 40.1 40.0 - 51.0 % LAB HEMATOLOGY METHOD 08/22/2024 1:35 AM EDT [facility] Platelet Count 352 155 - 369 10*3/uL LAB HEMATOLOGY METHOD 08/22/2024 1:35 AM EDT [facility] MCV 91 79 - 98 fL LAB HEMATOLOGY METHOD 08/22/2024 1:35 AM EDT [facility] MCH 29.4 26.0 - 32.0 pg LAB HEMATOLOGY METHOD 08/22/2024 1:35 AM EDT [facility] MCHC 32.2 30.7 - 35.5 g/dL LAB HEMATOLOGY METHOD 08/22/2024 1:35 AM EDT [facility] RDW 15.0(H) 11.5 - 14.5 % LAB HEMATOLOGY METHOD 08/22/2024 1:35 AM EDT [facility] MPV 9.9 8.8 - 12.5 fL LAB HEMATOLOGY METHOD 08/22/2024 1:35 AM EDT [facility] nRBC 0.0 <=0.0 per 100 WBCs LAB HEMATOLOGY METHOD 08/22/2024 1:35 AM EDT [facility] Differential Type Automated LAB HEMATOLOGY METHOD 08/22/2024 1:35 AM EDT [facility] Neutrophils % 66 % LAB HEMATOLOGY METHOD 08/22/2024 1:35 AM EDT [facility] Lymphocytes % 21 % LAB HEMATOLOGY METHOD 08/22/2024 1:35 AM EDT [facility] Monocytes % 11 % LAB HEMATOLOGY METHOD 08/22/2024 1:35 AM EDT [facility] Eosinophils % 1 % LAB HEMATOLOGY METHOD 08/22/2024 1:35 AM EDT [facility] Basophils % 0 % LAB HEMATOLOGY METHOD 08/22/2024 1:35 AM EDT [facility] Immature Granulocytes % 1 % LAB HEMATOLOGY METHOD 08/22/2024 1:35 AM EDT [facility] Neutrophils Absolute 6.13(H) 1.60 - 6.10 10*3/uL LAB HEMATOLOGY METHOD 08/22/2024 1:35 AM EDT [facility] Lymphocytes Absolute 1.97 1.20 - 3.90 10*3/uL LAB HEMATOLOGY METHOD 08/22/2024 1:35 AM EDT [facility] Monocytes Absolute 1.01(H) 0.30 - 0.90 10*3/uL LAB HEMATOLOGY METHOD 08/22/2024 1:35 AM EDT [facility] Eosinophils Absolute 0.12 0.00 - 0.50 10*3/uL LAB HEMATOLOGY METHOD 08/22/2024 1:35 AM EDT [facility] Basophils Absolute 0.04 0.00 - 0.10 10*3/uL LAB HEMATOLOGY METHOD 08/22/2024 1:35 AM EDT [facility] Immature Granulocytes Absolute 0.06 0.00 - 0.06 10*3/uL LAB HEMATOLOGY METHOD 08/22/2024 1:35 AM EDT [facility] Blood Venous blood specimen / Unknown Venipuncture / Unknown 08/22/2024 1:26 AM EDT 08/22/2024 1:33 AM EDT [facility] - 08/22/2024 1:35 AM EDT Therapeutic decision making should be based on absolute values, rather than percentages. us Jay Salvador MD LAB BLOOD ORDERABLES Final Re sult [facility] [address] [place] [address] * Type and screen (08/22/2024 1:26 AM [...] Final Result BLOOD BANK [address] [place] [address], [place] * (ABNORMAL) CMP (08/22/2024 1:26 AM EDT) Glucose, Plasma 93 74 - 99 mg/dL 08/22/2024 2:07 AM EDT [facility] BUN, Plasma 18 8 - 23 mg/dL 08/22/2024 2:07 AM EDT [facility] Creatinine, Plasma 1.27(H) 0.70 - 1.20 mg/dL 08/22/2024 2:07 AM EDT [facility] BUN/Creatinine Ratio 14 08/22/2024 2:07 AM EDT [facility] Sodium, Plasma 142 136 - 145 mmol/L 08/22/2024 2:07 AM EDT [facility] Potassium, Plasma 4.2 3.6 - 4.9 mmol/L 08/22/2024 2:07 AM EDT [facility] Chloride, Plasma 107 97 - 107 mmol/L 08/22/2024 2:07 AM EDT [facility] CO2, Plasma 21(L) 22 - 29 mmol/L 08/22/2024 2:07 AM EDT [facility] Anion Gap 14 6 - 16 mmol/L 08/22/2024 2:07 AM EDT [facility] Total Calcium, Plasma 9.2 8.9 - 10.2 mg/dL 08/22/2024 2:07 AM EDT [facility] Total Protein 6.7 6.3 - 7.9 g/dL 08/22/2024 2:07 AM EDT [facility] Albumin, Plasma 3.8 3.5 - 5.2 g/dL 08/22/2024 2:07 AM EDT [facility] AST, Plasma 21 10 - 50 U/L 08/22/2024 2:07 AM EDT [facility] ALT, Plasma 19 10 - 50 U/L 08/22/2024 2:07 AM EDT [facility] Alkaline Phosphatase, Plasma 91 40 - 115 U/L 08/22/2024 2:07 AM EDT [facility] Total Bilirubin, Plasma 0.3 0.2 - 1.1 mg/dL 08/22/2024 2:07 AM EDT [facility] eGFRcr 56.1 mL/min/1.7 3m*2 08/22/2024 2:07 AM EDT [facility] Comment:Reported eGFRcr in m L/min/1.73m2 is based the CKD-EPI 2020 equation that does not use a race coefficient. Blood Venous blood specimen / Unknown Venipuncture / Unknown 08/22/2024 1:26 AM EDT 08/22/2024 1:33 AM EDT us Jay Salvador MD LAB BLOOD ORDERABLES Final Re sult [facility] [address] [place] [address] * POC Imaging (08/22/2024) Anatomical Region Laterality Modality Pelvis Other 08/22/2024 us External Provider IMG POINT OF CARE ULTRASOUND F inal Result * CYSTO- UROLOGY (08/11/2024 2:08 PM EDT) Narrative Ben Harman MD - 08/11/2024 2:08 PM EDT Ben Harman MD 08/28/2024 3:03 PM Cysto- Urology Date/Time: 08/11/2024 2:08 PM Performed by: Bne Harman MD Authorized by: Ben Harman MD Procedure discussed: discussed risks, benefits and alternatives Qual Field Manager present: yes Timeout: timeout called immediately prior [...] updated to appropriate status: Yes Care Teams Gun Examiner Relationship Specialty Start Date End Date Ronny Belle MD [address] [place] [id number] PCP - General 07/01/24
--- OUTSIDE RECORDS SUMMARY | 2024-10-16 09:52 | XMS_ITS | Encounter Summary ---
Author Organization Healthcare Address [address] [place] [address] Care Team Providers Care Director Of Development And Marketing Name Role Phone Ronny Belle MD Primary Care Provider [phone] Encounter Details Date Type Department Care Team (Late st Contact Info) Description 06/09/2024 Orders Only External Location [address] [place] [address] Provider, External Social History Tobacco Use Types [...] Office Visit [facility] [address] [place] [address] Carrie James PA [address] [place] [address] documented as of this encounter Procedures Procedure [...] on filedocumented in this encounter Care Teams Director Of Development And Marketing Relationship Specialty Start Date End Date Ronny Belle MD [facility] [place] [address] PCP - General 07/01/24 documented as of this encounter
--- OUTSIDE RECORDS SUMMARY | 2024-10-16 09:52 | XMS_ITS | Clinical Summary ---
Author Organization [facility] [place] [address] Care Team Providers Care Ingredient Specialist Name Role Phone Unavailable Primary Care Provider [...]
--- OUTSIDE RECORDS SUMMARY | 2024-10-16 09:52 | XMS_ITS | Encounter Summary ---
Author Organization Healthcare Address [address] [place] [address] Care Team Providers Care Pharmacy Benefit Manager Name Role Phone Ronny Belle MD Primary Care Provider [phone] Encounter Details Date Type Department Care Team [...] drink first t herminio in the morning (EYE-REHAB AIDE) to steady your nerves or to get [...] Description 12/09/2024 1:40 PM EDT Office Visit [facility] [address] [place] [address] Carrie James PA [address] [place] [address] documented as of this encounter Visit Diagnoses Not on filedocumented in this encounter Additional Health Concerns Assessment Noted Time A fall risk assessment has been complete d for the patient 08/11/2024 10:45 AM EDT A Body Mass Index follow-up plan has been documented for the patient 08/23/2024 2:19 PM EDT documented as of this encounter Care Teams Pharmacy Benefit Manager Relationship Specialty Start Date End Date Ronny Belle MD [facility] [place] [address] PCP - General 07/01/24 documented as of this encounter
--- OUTSIDE RECORDS SUMMARY | 2024-10-16 09:52 | XMS_ITS | Encounter Summary ---
Author Organization Healthcare Address [address] [place] [address] Care Team Providers Care Pulley Mortiser Operator Name Role Phone Ronny Belle MD Primary Care Provider [phone] Encounter Details Date Type Department Care Team (Latest Contact Info) Description 09/02/2024 Travel Social History Tobacco Use Types Packs/Day Years Used Date Smoking Tobacco: Former Cigarettes [phone] - 2021 Smokeless Tobacco: Never Alcohol Use [...] drink first t herminio in the morning (EYE-CUFF CUTTER) to steady your nerves or to get [...] Description 12/09/2024 1:40 PM EDT Office Visit [facility] [address] [place] [address] Carrie James PA [address] [place] [address] documented as of this encounter Visit Diagnoses Not on filedocumented in this encounter Additional Health Concerns Assessment Noted Time A fall risk assessment has been complete d for the patient 09/02/2024 1:40 PM EDT A Body Mass Index follow-up plan has been documented for the patient 09/02/2024 3:48 PM EDT documented as of this encounter Care Teams Pulley Mortiser Operator Relationship Specialty Start Date End Date Ronny Belle MD [address] [place] [address] PCP - General 07/01/24 documented as of this encounter
--- OUTSIDE RECORDS SUMMARY | 2024-10-16 09:52 | XMS_ITS | Encounter Summary ---
Author Organization Healthcare Address [address] [place] [address] Care Team Providers Care Community Health Program Representative Name Role Phone Ronny Belle MD Primary Care Provider Encounter Details Date Type Department Care Team ([facility] st Contact Info) Description 08/22/2024 Orders Only External Location [address] [place] [address] Provider, External Social History Tobacco Use Types [...] drink first t herminio in the morning (EYE-ROUSTABOUT HAND) to steady your nerves or to get [...] Description 12/09/2024 1:40 PM EDT Office Visit [facility] [address] [place] [address] Carrie James PA [address] [place] [address] documented as of this encounter [...] documented as of this encounter Care Teams Community Health Program Representative Relationship Specialty Start Date End Date Ronny Belle MD [facility] [place] [address] PCP - General 07/01/24 documented as of this encounter
--- OUTSIDE RECORDS SUMMARY | 2024-10-16 09:52 | XMS_ITS | Clinical Summary ---
Author Organization [facility] Address [address] [place] [address] Care Team Providers Care Pharmacovigilance Scientist Name Role Phone Ronny Belle MD Primary Care Provider [phone] Allergies No known active allergies Social History [...] (#1) 2024 Insurance [employer] MEDICARE Care Teams Pharmacovigilance Scientist Relationship Specialty Start Date End Date Ronny Belle MD [address] [place], [place] [id number] PCP - General Family Medicine 04/13/22
--- OUTSIDE RECORDS SUMMARY | 2024-10-16 09:52 | XMS_ITS | Clinical Summary ---
Author Organization [facility] Address [address] [place] [address] Care Team Providers Care Detailer School Photographs Name Role Phone Ronny Belle MD Primary Care Provider [phone] Allergies Active Allergy Reactions Criticality Noted Date [...] complete this topic Insurance MEDICARE Care Teams Detailer School Photographs Relationship Specialty Start Date End Date Ronny Belle MD [address] [place] [address] PCP - General Family Medicine 04/27/22
--- OUTSIDE RECORDS SUMMARY | 2024-10-16 09:52 | XMS_ITS | Encounter Summary ---
Author Organization Healthcare Address [address] [place] [address] Care Team Providers Care Locomotive Engineer Diesel Name Role Phone Ronny Belle MD Primary Care Provider [phone] Encounter Details Date Type Department Care Team (Latest Contact Info) Description 08/26/2024 Travel Social History Tobacco Use Types Packs/Day Years Used Date Smoking Tobacco: Former Cigarettes 3 [phone] - 2021 Smokeless Tobacco: Never Alcohol Use [...] drink first t herminio in the morning (EYE-CUSTOMER SUPPORT ANALYST) to steady your nerves or to get [...] Description 12/09/2024 1:40 PM EDT Office Visit [facility] [address] [place] [address] Carrie James PA [address] [place] [address] documented as of this encounter Visit Diagnoses Not on filedocumented in this encounter Additional Health Concerns Assessment Noted Time A fall risk assessment has been complete d for the patient 08/11/2024 10:45 AM EDT A Body Mass Index follow-up plan has been documented for the patient 08/23/2024 2:19 PM EDT documented as of this encounter Care Teams Locomotive Engineer Diesel Relationship Specialty Start Date End Date Ronny Belle MD [address] [place] [address] PCP - General 07/01/24 documented as of this encounter
[2024-10-16 09:53] LABS: Lactate Venous 2.3 mmol/L (0.4-2.0); VBG HCO3 25.1 mmol/L (23-30); VBG PCO2 40.4 mmol/L (35-51); VBG PH 7.41 mmol/L (7.31-7.41); VBG PO2 49.9 mmol/L (28-40)
[2024-10-16 10:02] LABS: Alanine Aminotransferase 60 U/L (12-78); Albumin Level 3.7 g/dl (3.5-5.0); Albumin/Globulin Ratio 1.0 (1.1-1.8); Alkaline Phosphatase 96 U/L (38-126); Anion Gap 14.9 mEq/L (5-15); Aspartate Amino Transferase 59 U/L (17-59); Bilirubin,Total 0.4 mg/dl (0.2-1.3); Blood Urea Nitrogen 25 mg/dl (9-20); Calcium 9.0 mg/dl (8.4-10.2); Carbon Dioxide 30 mmol/L (22.0-30.0); Chloride 96 mmol/L (98-107); Creatine Kinase 34 U/L (55-170); Creatinine Clearance Estimated 61 mL/min (50-200); Creatinine,Serum 1.30 mg/dl (0.66-1.25); Estimated Glomerular Filt Rate 53 ml/min (>60); GFR (African American) 64 ML/MIN (>60); Globulin 3.7 g/dL (1.3-3.2); Glucose 102 mg/dl (74-100); Lipase 63 U/L (23-300); Potassium 4.9 mmoL/L (3.5-5.1); Sodium 136 mmol/L (136-145); Total Protein,Serum 7.4 g/dl (6.3-8.2)
--- NOTE | 2024-10-16 10:09 | CT_ITS ---
FINAL REPORT TECHNIQUE: The patient was injected with IV contrast. Axial images were obtained through the chest in a PE protocol. 3-D reconstruction images were also performed. Individualized dose reduction techniques using automated exposure control or adjustment of the MA and/or KV according to patient's size were employed. CLINICAL HISTORY: Tachypnea, Tachycardia COMPARISON: 05/12/2024 FINDINGS: Mediastinal vasculature is adequately opacified. No pulmonary artery filling defects are identified to suggest PE. There is no aortic dissection. There is no axillary adenopathy. There are a few small mediastinal nodes identified, stable in appearance. The heart size is normal. There is no pericardial or pleural effusion. Limited images of the upper abdomen are unremarkable. Moderate changes of centrilobular emphysema are present. The previously noted rounded masslike infiltrate in the right lower lobe has markedly decreased in size since the prior CT of 05/12/2024, best seen on coronal images #99 through 103 of series 1009. There is a small 5 mm nodule in the anterior left lower lobe, best seen on image #76 of series 12, which also appear stable when compared to the prior exam. Scar is present in the lung bases. There are multiple large benign-appearing renal cysts in the kidneys, the largest in the left upper pole. The right kidney appears atrophic. IMPRESSION: No pulmonary embolus identified. Previous masslike infiltrate in the right lower lobe has markedly decreased in size since the prior examination as described. The 5 mm nodule in the anterior left lower lobe is stable in appearance when compared to the prior exam. Reviewed, Interpreted and Dictated by Larry Camacho MD Transcribed by Izabela Chavez Authenticated and [facility]
--- NOTE | 2024-10-16 10:09 | CT_ITS ---
FINAL REPORT TECHNIQUE: After the administration of oral and intravenous contrast, axial images were obtained through the abdomen and pelvis by computed tomography. The study was performed with techniques to keep radiation dose as low as reasonably achievable, (ALARA). Individual dose reduction techniques using automated exposure control or adjustment of mA and/or kV according to the patient's size were employed. CLINICAL HISTORY: Abdominal distention COMPARISON: None FINDINGS: Abdomen: Scarring is present in the lung bases bilaterally. The liver is normal in appearance. The gallbladder is distended. Note is made of a periampullary duodenal diverticulum. There is a nodule in the right adrenal gland measuring 1.9 cm in size, best seen on image #32 of series 3, indeterminate in etiology. There are multiple bilateral renal cysts, the largest on the left measuring 9.3 cm in size, with diffuse atrophy present in the right kidney. The spleen and pancreas are unremarkable in appearance. No upper abdominal mass or adenopathy is noted. Pelvis: There is a mass in the urinary bladder, measuring 3.7 cm in diameter, paracentral and to the right. No pelvic free fluid is identified. Dense vascular calcifications are noted in the abdominal aorta and iliac vessels. IMPRESSION: Mass in the urinary bladder, 3.7 cm in diameter, paracentral and to the right. Multiple bilateral renal cysts are present, the largest on the left measuring 9.3 cm in size, with diffuse atrophy present in the right kidney. Reviewed, Interpreted and Dictated by Larry Camacho MD Transcribed by Izabela Chavez Authenticated and [facility]
[2024-10-16] MEDS: ONDANSETRON 4MG/2ML VIAL 4 MG IV (10:11)
[2024-10-16] MEDS: MORPHINE 2MG/ML SYRINGE 2 MG IV (10:11)
[2024-10-16 10:13] LABS: NT Pro Brain Natriuretic Pep. 522 pg/mL (0-450)
[2024-10-16 10:14] LABS: Troponin I < 0.01 ng/ml (0.00-0.034)
[2024-10-16 10:27] LABS: Coronavirus 19, PCR Not Detected (NotDetected); Influenza A, PCR Not Detected (NotDetected); Influenza B, PCR Not Detected (NotDetected)
[2024-10-16 10:34] LABS: Bilirubin,Urine Negative (Negative); Color,Urine YELLOW (Yellow); Glucose,Urine (UA) Negative (Negative); Ketones,Urine Negative (Negative); Leukocyte Esterase,Urine 2+ (Negative); Microscopic, Urine URINE MICROSCOPIC (MICROSCOPIC); PH,Urine 6.0 (5.0-8.5); Protein,Urine TRACE (Negative); Specific Gravity, Urine 1.015 (1.005-1.030); Urobilinogen,Urine 0.2 EU/dl (0.2)
[2024-10-16 10:36] LABS: Total Cells Counted 100
[2024-10-16 10:37] LABS: RBC Morphology Normal
--- NOTE | 2024-10-16 10:39 | PC.NURSE ---
repositioned pt in bed. he reports being more comfortable @ this time
[2024-10-16 10:49] LABS: Bacteria,Urine 1+ /lpf; WBC,Urine TNTC #/hpf (0-3)
[2024-10-16 10:52] LABS: Squamous Epithelial Cell,Urine Occasional #/hpf (0-5)
[2024-10-16] MEDS: SODIUM CHLORIDE 0.9% 10ML SYR (RAD ONLY) 10 ML IV (10:52)
[2024-10-16] MEDS: 0.9 % SODIUM CHLORIDE 50 ML VIAL 40 ML IV ×2 (10:52→11:02)
[2024-10-16] MEDS: IOPAMIDOL-370 (76%);100ML BOTTLE 80 ML IV ×2 (10:52→11:02)
--- NOTE | 2024-10-16 12:50 | PC.NURSE ---
Collected and sent Trop to lab.
[2024-10-16 13:11] LABS: Hepatitis C Ab Qual. W/ RFX NEGATIVE (Negative)
[2024-10-16 13:24] LABS: Troponin I < 0.01 ng/ml (0.00-0.034)
[2024-10-16 13:53] LABS: Reflex Lactic Add Lactic Reflex
--- NOTE | 2024-10-16 14:16 | PC.NURSE ---
PHOTOVOLTAIC INSTALLER NOTIFIED OF ADMISSION
[2024-10-16 14:20] LABS: Lactic Acid Follow Up (RFLX 1) 0.8 mmol/L (0.7-2.1)
--- NOTE | 2024-10-16 14:25 | PC.NURSE ---
Attempted to call report. Nurse has not been assigned to the pt at this time and will call back.
--- NOTE | 2024-10-16 14:57 | HMH.PHAINT1 ---
Pharmacy Intervention Comments: MEDICATION RECONCILIATION COMPLETED ON PATIENT USING EXTERNAL FILL HISTORY FROM PHARMACY AND LIST FROM PCP OFFICE. -YURY FALK, KHRISD
--- NOTE | 2024-10-16 15:01 | PC.NURSE ---
Attempted to call report.
--- NOTE | 2024-10-16 15:18 | PC.NURSE ---
report called to Stella
[2024-10-16 15:22] LABS: C-Reactive Protein 196.1 mg/L (0-4)
[2024-10-16 16:18] LABS: Adenovirus,PCR Not Detected (NotDetected); Chlamydophila Pneumoniae, PCR Not Detected (NotDetected); Coronavirus 19, PCR Not Detected (NotDetected); Coronovirus HKU1,PCR Not Detected (NotDetected); Influenza A, PCR Not Detected (NotDetected); Influenza AH1, 2009 Not Detected (NotDetected); Influenza AH1, PCR Not Detected (NotDetected); Influenza AH3,PCR Not Detected (NotDetected); Influenza B, PCR Not Detected (NotDetected); Mycoplasma Pneumoniae, PCR Not Detected (NotDetected); Parainfluenza 1, PCR Not Detected (NotDetected); Parainfluenza 2, PCR Not Detected (NotDetected); Parainfluenza 3, PCR Not Detected (NotDetected); Parainfluenza 4, PCR Not Detected (NotDetected)
[2024-10-16] MEDS: CEFTRIAXONE 1 GM 1 GM in 0.9 % SODIUM CHLORIDE 50 ML IV (16:58)
--- NOTE | 2024-10-16 17:33 | EXP.HP ---
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 Patient states he is unable to walk due to weakness, and also endorses diffuse muscle aches and joint pain. No known sick contacts. Denies fever/chills, chest pain, shortness of breath. Pursed lip breathing is baseline per patient. Workup in the ED significant for WBC 14.2. UA very grossly abnormal. Of note, patient apparently has undergone recent prostate surgery for suspected enlarged prostate. Postoperative complication included blood clot in his bladder requiring Fabian catheterization which has since been removed. CT abdomen/pelvis shows bladder mass 3.7 cm in diameter, but patient is making urine. Case discussed with ED provider and she was made to admit patient for physical deconditioning, UTI. [facility] Disclaimer: The information contained in this section may have been updated after the patient was seen, as this information can be updated by other users. Medical History Organizing pneumonia COPD mixed type Lung mass Lung nodule Sinusitis Pyriform sinus mass History of smoking 30 or more pack years Chest pain, atypical Murmur, cardiac Normal coronary angiogram HLD (hyperlipidemia) Essential hypertension BPH (benign prostatic hyperplasia) Surgical History History of cystoscopy History of transurethral resection of prostate Family History Other Cancer Diabetes Social History Smoking Status: Former smoker tobacco type: cigarettes packs per day: 2 alcohol intake: never substance use type: denies use current occupational status: retired Travel in the last 8 weeks?: None household members: spouse housing: house Have you lived/traveled outside US in past 30 days?: No Contact w/someone who lives/traveled outside US past 30 days?: No Exposure to someone with infectious disease in past 14 days?: No Do you have a fever (greater than 100.4 F or 38 C)?: Yes Have you tested positive for COVID-19?: No Exposed to someone with COVID-19 in past 14 days?: No Do you have a sore throat?: No Do you have a cough?: No Do you have any weakness?: No Do you have any diarrhea?: No Are you experiencing any unusual bleeding?: No Do you have any muscle aches/pain?: Yes Do you have any abdominal pain?: No Are you experiencing loss of taste or smell?: No Other Medical History Have you received the Flu Vaccine for this season: No Have you received the Pneumonia Vaccine: No Meds Home Medications and Allergies Home Medications ?Medication ?Instructions ?Recorded ?Confirmed ?Type fluticasone fur. 200 mcg-umeclid 1 inh inhalation DAILY #60 ea 06/24/24 10/16/24 Rx 62.5 mcg-vilant 25 mcg inhalat.powder (Trelegy Ellipta) cefdinir 300 mg capsule 300 mg PO BID #20 caps 10/13/24 10/16/24 Rx albuterol sulfate 90 mcg/actuation 2 puff inhalation QIDP PRN 10/16/24 10/16/24 History aerosol inhaler shortness of breath or wheezing amlodipine 10 mg-benazepril 20 mg 1 cap PO DAILY 10/16/24 10/16/24 History capsule atorvastatin 20 mg tablet 20 mg PO DAILY 10/16/24 10/16/24 History dutasteride 0.5 mg-tamsulosin ER 1 cap PO DAILY 10/16/24 10/16/24 History 0.4 mg capsule ext.release 24hr mphas ezetimibe 10 mg tablet 10 mg PO DAILY 10/16/24 10/16/24 History furosemide 40 mg tablet (Lasix) 40 mg PO DAILYP PRN edema 10/16/24 10/16/24 History New Prescriptions to Start Prescriptions: Allergies Allergy/AdvReac Type Severity Reaction Status Date / Time Penicillins AdvReac Severe Other Verified 10/13/24 11:47 Exam Data for Last 24 hours Vital signs and Labs for Last 24 Hours: Temp Pulse Resp BP Pulse Ox O2 Del Method O2 Flow Rate 99.2 F 87 16 121/67 92 L Nasal Cannula 2 10/16/24 16:12 10/16/24 16:12 10/16/24 16:12 10/16/24 16:12 10/16/24 16:12 10/16/24 16:12 10/16/24 16:12 Laboratory Results - last 24 hr 10/16/24 09:29: Chlamy pneumoniae PCR Not detected, Adenovirus (PCR) Not detected, B. pertussis DNA (PCR) Not detected, Coronavirus OC43 (PCR) Not detected, Coronavirus HKU1 (PCR) Not detected, Coronavirus 229E (PCR) Not detected, SARS-CoV-2 (PCR) Not detected 10/16/24 09:29: SARS-CoV-2 (PCR) Not detected 10/16/24 09:: SARS-CoV-2 (PCR) Not detected, Coronavirus NL63 (PCR) Not detected, Human Metapneumovir PCR Not detected, Influenza A (H1) PCR Not detected, Influ A (H1N1/09) PCR Not detected, Influenza A (H3) PCR Not detected, Influenza Type A (PCR) Not detected 10/16/24 09:29: Influenza Type A (PCR) Not detected, Influenza A Untype (PCR) Not detected, Influenza Type B (PCR) Not detected 10/16/24 09:: Influenza Type B (PCR) Not detected 10/16/24 09:29: Influenza Type B (PCR) Not detected, M. pneumoniae (PCR) Not detected, Parainfluenza 1 (PCR) Not detected, Parainfluenza 2 (PCR) Not detected, Parainfluenza 3 (PCR) Not detected, Parainfluenza 4 (PCR) Not detected, RSV (PCR) Not detected 10/16/24 09:29: RSV (PCR) Not detected, Rhinovirus (PCR) Not detected, Entero/Rhino (PCR) Not detected 10/16/24 09:39: VBG pH 7.41, VBG pCO2 40.4, VBG pO2 49.9 H, VBG HCO3 25.1, VBG Total CO2 26.3, VBG O2 Saturation 84.2 H, VBG Base Excess 0.5, VBG Lactic Acid 2.3 H 10/16/24 09:40: WBC 14.2 H, RBC 3.96 L, Hgb 11.4 L, Hct 35.8 L, MCV 90.4, MCH 28.8, MCHC 31.8, RDW 14.6, Plt Count 563 H, MPV 9.0, Neut % (Auto) 80.2 H, Lymph % (Auto) 8.9 L, [place] % (Auto) 8.9, Eos % (Auto) 0.6, Baso % (Auto) 0.3, Neut # (Auto) 11.4 H, Lymph # (Auto) 1.3, [place] # (Auto) 1.3 H, Eos # (Auto) 0.1, Baso # (Auto) 0.0, Total Counted 100, Neutrophils % (Manual) 81 H, Lymphocytes % (Manual) 12, Monocytes % (Manual) 6, Eosinophils % (Manual) 1, Platelet Estimate Moderate increase, RBC Morphology Normal, Sodium 136, Potassium 4.9, Chloride 96 L, Carbon Dioxide 30, Anion Gap 14.9, BUN 25 H, Creatinine 1.30 H, Estimated Creat Clear 61, Estimated GFR 53 L, Est GFR ( Amer) 64, Glucose 102 H, Calcium 9.0, Total Bilirubin 0.4, AST 59, ALT 60, Alkaline Phosphatase 96, Total Creatine Kinase 34 L, Troponin I < 0.01, C-Reactive Protein 196.1 H, NT-Pro-B Natriuret Pep 522 H, Total Protein 7.4, Albumin 3.7, Globulin 3.7 H, Albumin/Globulin Ratio 1.0 L, Lipase 63, HCV Ab YEFRI w/Rflx PCR Qn Negative, HIV Ag/Ab Combo Qual Negative 10/16/24 10:27: Urine Color Yellow, Urine Appearance Slightly cloudy, Urine pH 6.0, Ur Specific [place] 1.015, Urine Protein Trace, Urine Glucose (UA) Negative, Urine Ketones Negative, Urine Blood Trace-i, Urine Nitrate Negative, Urine Bilirubin Negative, Urine Urobilinogen 0.2, Ur Leukocyte Esterase 2+ A, Urine RBC 3-5, Urine WBC Tntc, Ur Squamous Epith Cells Occasional, Urine Bacteria 1+ 10/16/24 12:48: Troponin I < 0.01 10/16/24 14:00: Lactate 0.8 10/16/24 14:24: ESR > 140 H I & O for Last 24 hours: Intake & Output 10/13/24 10/14/24 10/15/24 10/16/24 23:59 23:59 23:59 23:59 Output Total 400 / 400 Balance -400 / -400 Weight 105.233 kg Constitutional Constitutional: no acute distress *Routine HEENT Exam Head: Present normocephalic Eye: Present EOMI and PERRL ENT: Present mucous membranes moist *Routine Neck Exam Neck: Present supple; Absent lymphadenopathy *Routine Respiratory Exam Respiratory: Present CTA bilaterally *Routine Cardiovascular Exam Cardiovascular: Present RRR *Routine Abdominal Exam Abdominal: Present soft and normoactive bowel sounds; Absent tenderness *Routine Rectal Exam Rectal:: deferred *Routine Genitalia Exam Genitalia:: deferred *Routine Extremities Exam Extremities: Present edema; Absent cyanosis or clubbing *Routine Skin Exam Skin: Present warm; Absent rash *Routine Neurological Exam Neurological: Present alert and oriented X3 Assessment and Plan *Assessment and plan (1) Bladder mass: Status: Acute Category: Medical Code(s): N32.89 - Other specified disorders of bladder (2) UTI (urinary tract infection): Status: Acute Category: Medical Code(s): N39.0 - Urinary tract infection, site not specified Plan Celestino Lundy is a 83-year-old male with a medical history significant for 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 Patient states he is unable to walk due to weakness, and also endorses diffuse muscle aches and joint pain. No known sick contacts. Denies fever/chills, chest pain, shortness of breath. Pursed lip breathing is baseline per patient. Workup in the ED significant for WBC 14.2. UA very grossly abnormal. Of note, patient apparently has undergone recent prostate surgery for suspected enlarged prostate. Postoperative complication included blood clot in his bladder requiring Fabian catheterization which has since been removed. CT abdomen/pelvis shows bladder mass 3.7 cm in diameter, but patient is making urine. Case discussed with ED provider and she was made to admit patient for physical deconditioning, UTI. #Physical deconditioning #UTI #Bladder mass/blood clot ? Presented with progressive physical deconditioning, inability to walk. Found to have UA grossly abnormal. ? CT abdomen/pelvis does show bladder mass with 3.7 cm diameter, and per daughter patient had a blood clot in his bladder after his prostate surgery recently. Patient is making urine however. ? Starting levofloxacin, patient had been taking cefdinir outpatient and allergic to penicillins. Initially treated with IV ceftriaxone here. ? Follow-up blood, urine cultures. ? Patient will need to follow-up with urology closely upon discharge. ? Continue home tamsulosin/dutasteride. ? PT/OT consulted, pending further recommendations. #COPD ? Currently stable. Pursed lip breathing is normal for patient. Continue home Trelegy. #Hypertension ? Continue home amlodipine, benazepril. Full code DVT prophylaxis: Lovenox 40 mg
[2024-10-16 17:53] LABS: Troponin I < 0.01 ng/ml (0.00-0.034)
--- NOTE | 2024-10-16 18:15 | PC.NURSE ---
Pt new admit from ED. Pt A&Ox4. Vital signs stable tolerating baseline O2 2L NC. IV abx infused per JUN. Bolus to be given per JUN. Pt has +2 edema on BLE. Pt with generalized weakness. Bed alarm in place. Pt resting comfortably with no further needs voiced at this time. Call light within reach
[2024-10-16] MEDS: LACTATED RINGERS 1000ML 1,000 ML 500 ML IV (18:29)
[2024-10-16] MEDS: LEVOFLOXACIN/D5W 750 MG/150 ML 750 MG/150 ML PIGGYBACK 100 MG IV (20:07)
[2024-10-17] VITALS: BP 120/57; PULSE 86; RESP 22; TEMP 36.9; O2SAT 92
[2024-10-17 04:00] VITALS: BP 127/64; PULSE 82; RESP 19; TEMP 36.6; O2SAT 92; BMI 33.0
[2024-10-17 06:23] LABS: Nucleated Red Blood Cells % 0 %; Platelet Count 505 K/mm3 (142-424)
[2024-10-17 06:34] LABS: Hematocrit 30.7 % (42.0-52.0); Immature Granulocytes % 1.4 %; Mean Corpuscular HGB Conc 31.6 g/dL (31.8-35.4); Mean Corpuscular Hemoglobin 28.4 pg (27.0-31.2); Mean Corpuscular Volume 89.8 fl (80-94); Red Blood Count 3.42 M/mm3 (4.60-6.20); Red Cell Distribution Width-SD 48.5 fL; White Blood Count 13.9 K/mm3 (4.8-10.8)
[2024-10-17 06:38] LABS: Hemoglobin 9.7 g/dL (14.1-18.0)
[2024-10-17 06:45] LABS: Alanine Aminotransferase 43 U/L (12-78); Albumin Level 3.1 g/dl (3.5-5.0); Albumin/Globulin Ratio 1.0 (1.1-1.8); Alkaline Phosphatase 82 U/L (38-126); Anion Gap 15.7 mEq/L (5-15); Aspartate Amino Transferase 40 U/L (17-59); Bilirubin,Total 0.3 mg/dl (0.2-1.3); Blood Urea Nitrogen 24 mg/dl (9-20); Calcium 8.6 mg/dl (8.4-10.2); Carbon Dioxide 26 mmol/L (22.0-30.0); Chloride 97 mmol/L (98-107); Creatinine Clearance Estimated 57 mL/min (50-200); Creatinine,Serum 1.50 mg/dl (0.66-1.25); Estimated Glomerular Filt Rate 45 ml/min (>60); GFR (African American) 54 ML/MIN (>60); Globulin 3.2 g/dL (1.3-3.2); Glucose 94 mg/dl (74-100); Potassium 4.7 mmoL/L (3.5-5.1); Sodium 134 mmol/L (136-145); Total Protein,Serum 6.3 g/dl (6.3-8.2)
[2024-10-17 07:29] LABS: Total Cells Counted 100
[2024-10-17 07:30] LABS: Hypochromasia 2+
[2024-10-17 08:00] VITALS: BP 139/78; PULSE 88; RESP 22; TEMP 36.9; O2SAT 90
--- NOTE | 2024-10-17 08:13 | HMH.PTEV ---
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 Patient states he is unable to walk due to weakness, and also endorses diffuse muscle aches and joint pain. No known sick contacts. Denies fever/chills, chest pain, shortness of breath. Pursed lip breathing is baseline per patient. Workup in the ED significant for WBC 14.2. UA very grossly abnormal. Of note, patient apparently has undergone recent prostate surgery for suspected enlarged prostate. Postoperative complication included blood clot in his bladder requiring Fabian catheterization which has since been removed. CT abdomen/pelvis shows bladder mass 3. 7 cm in diameter, but patient is making urine. Case discussed with ED provider and she was made to admit patient for physical deconditioning, UTI. Subjective Subjective Pt's daughter present in room and assisted with hx taking. PLOF: IND with all mobility without AD use. Going to the gym 3x a week. Still driving. No falls reported. About a week ago, pt experienced significant joint pain and has been unable to walk from the pain. HOME: Lives alone in a single-story home with 0 ELIO. Daughter has been staying with him. [facility] How much help from another person do you currently need... Turning from your A lot back to your side while in a flat bed without using bedrails? Moving from lying on A lot back to sitting on the side of a flat bed without using bedrails? Moving to and from a A lot bed to a chair ( including a wheelchair)? Standing up from a A lot chair using your arms? (e.g., wheelchair, bedside chair) Walking in hospital A lot room? Climbing 3-5 steps A lot with a railing? Mobility Score 12 Mobility Level [facility] Mobility 4 Move to chair/commode Mobility Calculator Rehab PT IP Eval Objective Appearance Patient Behavior Appropriate,Cooperative Patient Orientation Person,Situation Difficulty following none instructions Speech Pattern Clear Ambulation Patient Able to No Ambulate Balance Ability to Arise Unable Transfers Bed Transfer Ability Maximum x 1 (75% assist) Rehab PT IP prob,goals,plan Problems Date of Evaluation: 10/17/24 PT IP Problems Bed Mobility,Transfers,Gait,Balance,Self care,Safety Rehab Potential Rehab Potential Good Plan PT Intervention Plan Bed Mobility,Transfers,Gait,Balance,Self care,Safety, Therapeutic Exercise Other Intervention 1-2 times Plan PT Plan Frequency Daily Duration LOS Discharge Goals Bed Transfer Ability Moderate x 1 (50% assist) Sit to Stand Chair Moderate x 1 (50% assist) Transfer Ability Discharge Plan PT Discharge Plan Initial PT evaluation performed. Pt presents below baseline in all functional mobility. Mobility assessment limited by pain with movement. Pt only able to perform a partial supine>sit EOB with Mod-Max A. Pt most appropriate for skilled inpatient rehabilitation upon d/c from [facility] to maximize safety with mobility, address deficits, and decrease caregiver burden. Pt would benefit from skilled acute care PT while at [facility] to prevent further functional decline. Eval Complexity Eval Charge Codes 13333 - Moderate Complexity PHYSICIAN CERTIFICATION: I certify the specified therapy services for Celestino Lundy are required, authorized, and reviewed every 30 days.
[2024-10-17] MEDS: FLUTICASONE/UMECLIDIN/VILANTER 200/62.5/25MCG INHALER 1 PUFF IH (08:29)
[2024-10-17 08:37] LABS: Procalcitonin 0.128 ng/mL (0.0-2.0)
[2024-10-17] MEDS: LISINOPRIL 20MG TABLET 20 MG PO (08:52)
[2024-10-17] MEDS: AMLODIPINE 10MG TABLET 10 MG PO (08:52)
[2024-10-17 09:53] LABS: C-Reactive Protein 202.3 mg/L (0-4)
--- NOTE | 2024-10-17 10:42 | HMH.OTEV ---
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 Patient states he is unable to walk due to weakness, and also endorses diffuse muscle aches and joint pain. No known sick contacts. Denies fever/chills, chest pain, shortness of breath. Pursed lip breathing is baseline per patient. Workup in the ED significant for WBC 14.2. UA very grossly abnormal. Of note, patient apparently has undergone recent prostate surgery for suspected enlarged prostate. Postoperative complication included blood clot in his bladder requiring Fabian catheterization which has since been removed. CT abdomen/pelvis shows bladder mass 3. 7 cm in diameter, but patient is making urine. Case discussed with ED provider and she was made to admit patient for physical deconditioning, UTI. Subjective Pt's daughter present in room and assisted with hx taking. PLOF: IND with all transfers without AD use. Going to the gym 3x a week. Still driving. No falls reported. About a week ago, pt experienced significant joint pain and has been unable to walk from the pain. Normally independent with all ADLs and IADLs. HOME: Lives alone in a single-story home with 0 ELIO. Daughter has been staying with him. Objective Patient Orientation Person,Place,Birthday Right Upper WFL Extremity Gross ROM Left Upper Extremity WFL Gross ROM Bed Mobility bed mobility-scooting,bed mobility - supine/sit Assist Level Maximum x 1 (75% assist) Rehab OT IP prob,goals,plan Problems Date of Evaluation: 10/17/24 OT IP Problems Bed Mobility,Transfers,Balance,Self care,Safety Rehab Potential Rehab Potential Good Equipment Needs Assistive Devices Rolling / Wheeled Walker Plan OT intervention Plan Bed Mobility,Transfers,Balance,Self care,Safety, Therapeutic Exercise OT Plan Frequency Daily Duration LOS Discharge Goals Bed Mobility Ability Assistance x1 Sit to Stand Chair Moderate x 1 (50% assist) Transfer Ability Chair Transfer Moderate x 1 (50% assist) Ability Chair Transfer Sit to/from Ambulatory Technique Chair Transfer Rolling Walker Assistive Devices Lower Body Dressing Moderate Assistance Ability Upper Body Dressing Minimal Assistance Ability Performing Toilet Moderate Assistance Hygiene Ability Overall Commode/ Moderate Assistance Toilet Transfer Ability Commode/Toilet Sit to/from Ambulatory Transfer Technique Discharge Plan OT Discharge Plan Pt will continue to be seen for OT services while at [facility]. Pt would benefit most from short term rehab at SNF following discharge from hospital at this time. If pt demonstrates significant improvement while at hospital he could possibly return home with 24/7 assistance from family and HH OT evaluation. Continued skilled therapy is important in order for patient to improve strength, safety, endurance, and ADL independence to reach PLOF. Eval Complexity Eval Charge Codes 08948 - Moderate Complexity PHYSICIAN CERTIFICATION: I certify the specified therapy services for Celestino Lundy are required, authorized, and reviewed every 30 days.
[2024-10-17 12:00] VITALS: BP 140/66; PULSE 91; RESP 20; TEMP 37.1; O2SAT 92
[2024-10-17 13:14] LABS: Uric Acid 5.1 mg/dl (3.5-8.5)
[2024-10-17] MEDS: METHYLPREDNISOLONE SOD SUCC 40MG VIAL 80 MG IV (13:16)
[2024-10-17] MEDS: FUROSEMIDE 40MG/4ML VIAL 40 MG IV (13:19)
[2024-10-17 16:00] VITALS: BP 121/64; PULSE 84; RESP 20; TEMP 37.1; O2SAT 92
--- NOTE | 2024-10-17 16:41 | CARE MANAGER ---
Addendum entered by Agustina Resendiz 10/20/24 10:42: Patient will discharge to [facility] SNF level of care today. Addendum entered by Agustina Resendiz 10/20/24 08:03: Per Radha ibarra/ Quinten Zhang patient has been approved SNF level of care. I have updated MD. Original Note: Spoke with patient today regarding discharge planning. Patient would benefit with SNF at discharge. He is agreeable to [facility] and [facility]. Referral was faxed to both and he has been offered a bed at [place] [facility]. Auth has been started with insurance.
--- NOTE | 2024-10-17 18:28 | EXP.PN ---
Subjective *Date: 10/17/24 *Time: 18:28 Interval history: Patient feels a lot better since starting antibiotics. Urine culture still pending. Given one-time dose of IV Solu-Medrol 80 mg, Lasix 40 mg. Follow-up response. Exam Data for Last 24 hours Vital signs and Labs for Last 24 Hours: Temp Pulse Resp BP Pulse Ox O2 Del Method O2 Flow Rate 98.7 F 84 20 121/64 92 L Nasal Cannula 2 10/17/24 16:00 10/17/24 16:00 10/17/24 16:00 10/17/24 16:00 10/17/24 16:00 10/17/24 17:00 10/17/24 17:00 Laboratory Results - last 24 hr 10/17/24 06:00: WBC 13.9 H, RBC 3.42 L, Hgb 9.7 L D, Hct 30.7 L, MCV 89.8, MCH 28.4, MCHC 31.6 L, RDW 14.7, Plt Count 505 H, MPV 9.2, Neut % (Auto) 73.6, Lymph % (Auto) 12.2, [place] % (Auto) 12.2 H, Eos % (Auto) 0.2, Baso % (Auto) 0.4, Neut # (Auto) 10.3 H, Lymph # (Auto) 1.7, [place] # (Auto) 1.7 H, Eos # (Auto) 0.0, Baso # (Auto) 0.1, Total Counted 100, Neutrophils % (Manual) 74, Lymphocytes % (Manual) 15, Monocytes % (Manual) 11 H, Platelet Estimate Slight increase, Hypochromasia 2+, ESR 120 H, Sodium 134 L, Potassium 4.7, Chloride 97 L, Carbon Dioxide 26, Anion Gap 15.7 H, BUN 24 H, Creatinine 1.50 H, Estimated Creat Clear 57, Estimated GFR 45 L, Est GFR ( Amer) 54 L, Glucose 94, Uric Acid 5.1, Calcium 8.6, Total Bilirubin 0.3, AST 40 D, ALT 43 D, Alkaline Phosphatase 82, C-Reactive Protein 202.3 H, Total Protein 6.3, Albumin 3.1 L D, Globulin 3.2, Albumin/Globulin Ratio 1.0 L, Procalcitonin 0.128 I & O for Last 24 hours: Intake & Output 10/14/24 10/15/24 10/16/24 10/17/24 23:59 23:59 23:59 23:59 Intake Total 920 / 920 1040 / 1040 Output Total 400 / 1000 2625 / 2625 Balance 520 / -80 -1585 / -1585 Weight 105.233 kg 107.093 kg Microbiology Reports for the Last 24 Hours: Microbiology 10/16/24 10:21 Blood Blood Culture - Preliminary NO GROWTH AFTER 24 HOURS 10/16/24 10:00 Blood Blood Culture - Preliminary NO GROWTH AFTER 24 HOURS Constitutional Constitutional: no acute distress and obese *Routine HEENT Exam Head: Present normocephalic Eye: Present EOMI and PERRL ENT: Present mucous membranes moist *Routine Neck Exam Neck: Present supple; Absent lymphadenopathy *Routine Respiratory Exam Respiratory: Present CTA bilaterally *Routine Cardiovascular Exam Cardiovascular: Present RRR *Routine Abdominal Exam Abdominal: Present soft and normoactive bowel sounds; Absent tenderness *Routine Extremities Exam Extremities: Present edema; Absent cyanosis or clubbing *Routine Skin Exam Skin: Present warm; Absent rash *Routine Neurological Exam Neurological: Present alert and oriented X3 Assessment and Plan *Assessment and plan (1) Bladder mass: Status: Acute Category: Medical Code(s): N32.89 - Other specified disorders of bladder (2) UTI (urinary tract infection): Status: Acute Category: Medical Code(s): N39.0 - Urinary tract infection, site not specified Plan Celestino Lundy is a 83-year-old male with a medical history significant for 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 Patient states he is unable to walk due to weakness, and also endorses diffuse muscle aches and joint pain. No known sick contacts. Denies fever/chills, chest pain, shortness of breath. Pursed lip breathing is baseline per patient. Workup in the ED significant for WBC 14.2. UA very grossly abnormal. Of note, patient apparently has undergone recent prostate surgery for suspected enlarged prostate. Postoperative complication included blood clot in his bladder requiring Fabian catheterization which has since been removed. CT abdomen/pelvis shows bladder mass 3.7 cm in diameter, but patient is making urine. Case discussed with ED provider and she was made to admit patient for physical deconditioning, UTI. #Physical deconditioning #UTI #Bladder mass/blood clot ? Presented with progressive physical deconditioning, inability to walk. Found to have UA grossly abnormal. ? CT abdomen/pelvis does show bladder mass with 3.7 cm diameter, and per daughter patient had a blood clot in his bladder after his prostate surgery recently. Patient is making urine however. ? Starting levofloxacin, patient had been taking cefdinir outpatient and allergic to penicillins. Initially treated with IV ceftriaxone here. ? Patient feels a lot better today. Muscle aches, joint pains also improved. Some suspicion for rheumatologic flare, follow-up uric acid. Will give one-time dose of IV Solu-Medrol 80 mg. ? Follow-up blood, urine cultures. ? Patient will need to follow-up with urology closely upon discharge. ? Continue home tamsulosin/dutasteride. ? PT/OT consulted, pending further recommendations. #COPD ? Currently stable. Pursed lip breathing is normal for patient. Continue home Trelegy. #Hypertension ? Continue home amlodipine, benazepril. Full code DVT prophylaxis: Lovenox 40 mg
[2024-10-17 20:00] VITALS: BP 120/69; PULSE 78; RESP 19; TEMP 36.5; O2SAT 92
[2024-10-17] MEDS: LEVOFLOXACIN/D5W 750 MG/150 ML 750 MG/150 ML PIGGYBACK 100 MG IV (21:07)
[2024-10-17] MEDS: TAMSULOSIN 0.4MG CAPSULE 0.4 MG PO (21:07)
[2024-10-17] MEDS: ATORVASTATIN 20MG TABLET 20 MG PO (21:07)
[2024-10-18] VITALS (8 sets, daily range): BP systolic 101–133; BP diastolic 32–68; PULSE 72–94; RESP 14–22; TEMP 36.4–36.8; O2SAT 93–96; BMI 32.8
--- NOTE | 2024-10-18 02:44 | PC.NURSE ---
Pt AOx4. Denies pain. Currently resting in bed with eyes open. Respirations even and unlabored. Bed is low, locked, and call light is in reach. Family member at bedside.
[2024-10-18] MEDS: FLUTICASONE/UMECLIDIN/VILANTER 200/62.5/25MCG INHALER 1 PUFF IH (05:18)
[2024-10-18 07:20] LABS: Hematocrit 34.9 % (42.0-52.0); Hemoglobin 11.0 g/dL (14.1-18.0); Immature Granulocytes % 1.1 %; Mean Corpuscular HGB Conc 31.5 g/dL (31.8-35.4); Mean Corpuscular Hemoglobin 27.8 pg (27.0-31.2); Mean Corpuscular Volume 88.1 fl (80-94); Nucleated Red Blood Cells % 0 %; Platelet Count 555 K/mm3 (142-424); Red Blood Count 3.96 M/mm3 (4.60-6.20); Red Cell Distribution Width-SD 46.5 fL; White Blood Count 11.4 K/mm3 (4.8-10.8)
[2024-10-18 07:40] LABS: Alanine Aminotransferase 49 U/L (12-78); Albumin Level 3.4 g/dl (3.5-5.0); Albumin/Globulin Ratio 1.0 (1.1-1.8); Alkaline Phosphatase 90 U/L (38-126); Anion Gap 18.4 mEq/L (5-15); Aspartate Amino Transferase 47 U/L (17-59); Bilirubin,Total 0.3 mg/dl (0.2-1.3); Blood Urea Nitrogen 35 mg/dl (9-20); Calcium 9.1 mg/dl (8.4-10.2); Carbon Dioxide 23 mmol/L (22.0-30.0); Chloride 98 mmol/L (98-107); Creatinine Clearance Estimated 56 mL/min (50-200); Creatinine,Serum 1.50 mg/dl (0.66-1.25); Estimated Glomerular Filt Rate 45 ml/min (>60); GFR (African American) 54 ML/MIN (>60); Globulin 3.3 g/dL (1.3-3.2); Glucose 133 mg/dl (74-100); Potassium 4.4 mmoL/L (3.5-5.1); Sodium 135 mmol/L (136-145); Total Protein,Serum 6.7 g/dl (6.3-8.2)
[2024-10-18] MEDS: LISINOPRIL 20MG TABLET 20 MG PO (08:38)
[2024-10-18] MEDS: AMLODIPINE 10MG TABLET 10 MG PO (08:38)
[2024-10-18 08:42] LABS: Procalcitonin 0.103 ng/mL (0.0-2.0)
[2024-10-18 09:39] LABS: C-Reactive Protein 145.6 mg/L (0-4)
[2024-10-18] MEDS: POLYETHYLENE GLYCOL 3350 17 GM PACKET PO (10:11)
--- NOTE | 2024-10-18 17:41 | EXP.PN ---
Subjective *Date: 10/18/24 *Time: 17:41 Interval history: Patient feels significantly better today, pending prior authorization to [facility]. Exam Data for Last 24 hours Vital signs and Labs for Last 24 Hours: Temp Pulse Resp BP Pulse Ox O2 Del Method O2 Flow Rate 97.8 F 82 22 109/57 L 94 L Nasal Cannula 2 10/18/24 16:00 10/18/24 16:00 10/18/24 16:00 10/18/24 16:00 10/18/24 16:00 10/18/24 16:09 10/18/24 16:09 Laboratory Results - last 24 hr 10/18/24 06:45: WBC 11.4 H, RBC 3.96 L, Hgb 11.0 L, Hct 34.9 L, MCV 88.1, MCH 27.8, MCHC 31.5 L, RDW 14.3, Plt Count 555 H, MPV 9.1, Neut % (Auto) 85.8 H, Lymph % (Auto) 8.3 L, [place] % (Auto) 4.7, Eos % (Auto) 0.0 L, Baso % (Auto) 0.1, Neut # (Auto) 9.8 H, Lymph # (Auto) 0.9, [place] # (Auto) 0.5, Eos # (Auto) 0.0, Baso # (Auto) 0.0, ESR 83 H, Sodium 135 L, Potassium 4.4, Chloride 98, Carbon Dioxide 23, Anion Gap 18.4 H, BUN 35 H D, Creatinine 1.50 H, Estimated Creat Clear 56, Estimated GFR 45 L, Est GFR ( Amer) 54 L, Glucose 133 H, Calcium 9.1, Total Bilirubin 0.3, AST 47, ALT 49, Alkaline Phosphatase 90, C-Reactive Protein 145.6 H, Total Protein 6.7, Albumin 3.4 L, Globulin 3.3 H, Albumin/Globulin Ratio 1.0 L, Procalcitonin 0.103 I & O for Last 24 hours: Intake & Output 10/15/24 10/16/24 10/17/24 10/18/24 23:59 23:59 23:59 23:59 Intake Total 920 / 920 1040 / 1190 550 / 550 Output Total 400 / 1000 2625 / 2625 1100 / 1100 Balance 520 / -80 -1585 / -1435 -550 / -550 Weight 105.233 kg 107.093 kg 106.594 kg Microbiology Reports for the Last 24 Hours: Microbiology 10/16/24 10:21 Blood Blood Culture - Preliminary NO GROWTH AFTER 48 HOURS 10/16/24 10:00 Blood Blood Culture - Preliminary NO GROWTH AFTER 48 HOURS 10/16/24 10:27 Urine,Clean Catch Urine Culture - Final No growth. Constitutional Constitutional: no acute distress and obese *Routine HEENT Exam Head: Present normocephalic Eye: Present EOMI and PERRL ENT: Present mucous membranes moist *Routine Neck Exam Neck: Present supple; Absent lymphadenopathy *Routine Respiratory Exam Respiratory: Present CTA bilaterally *Routine Cardiovascular Exam Cardiovascular: Present RRR *Routine Abdominal Exam Abdominal: Present soft and normoactive bowel sounds; Absent tenderness *Routine Extremities Exam Extremities: Present edema; Absent cyanosis or clubbing *Routine Skin Exam Skin: Present warm; Absent rash *Routine Neurological Exam Neurological: Present alert and oriented X3 Assessment and Plan *Assessment and plan (1) Bladder mass: Status: Acute Category: Medical Code(s): N32.89 - Other specified disorders of bladder (2) UTI (urinary tract infection): Status: Acute Category: Medical Code(s): N39.0 - Urinary tract infection, site not specified Plan Celestino Lundy is a 83-year-old male with a medical history significant for 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 Patient states he is unable to walk due to weakness, and also endorses diffuse muscle aches and joint pain. No known sick contacts. Denies fever/chills, chest pain, shortness of breath. Pursed lip breathing is baseline per patient. Workup in the ED significant for WBC 14.2. UA very grossly abnormal. Of note, patient apparently has undergone recent prostate surgery for suspected enlarged prostate. Postoperative complication included blood clot in his bladder requiring Fabian catheterization which has since been removed. CT abdomen/pelvis shows bladder mass 3.7 cm in diameter, but patient is making urine. Case discussed with ED provider and she was made to admit patient for physical deconditioning, UTI. #Physical deconditioning #UTI #Bladder mass/blood clot ? Presented with progressive physical deconditioning, inability to walk. Found to have UA grossly abnormal. ? CT abdomen/pelvis does show bladder mass with 3.7 cm diameter, and per daughter patient had a blood clot in his bladder after his prostate surgery recently. Patient is making urine however. ? Continue levofloxacin for total of 10 days, patient had been taking cefdinir outpatient and allergic to penicillins. Initially treated with IV ceftriaxone here. ? Patient feels a lot better today. Muscle aches, joint pains also significantly improved. Some suspicion for rheumatologic flare. Follow-up JOSE DANIEL panel. Uric acid normal. ? Urine culture normal, but in the setting of bladder blood clot we will continue antibiotics as above as patient is improving on this. WBC improved to 11.4 today. ESR, CRP significantly improving. ? Patient will need to follow-up with urology closely upon discharge. ? Continue home tamsulosin/dutasteride. ? PT/OT consulted, recommend SNF. Accepted to [facility], pending prior authorization from insurance. #Lower extremity edema, elevated BNP ? Patient has chronic lower extremity pitting edema 1+, BNP 522. ? Follow-up ECHO. ? Started Lasix 40 mg daily. #COPD ? Currently stable. Pursed lip breathing is normal for patient, 2 L. Continue home Trelegy. #Hypertension ? Continue home amlodipine, benazepril. Full code DVT prophylaxis: Lovenox 40 mg
[2024-10-18] MEDS: ATORVASTATIN 20MG TABLET 20 MG PO (20:33)
[2024-10-18] MEDS: TAMSULOSIN 0.4MG CAPSULE 0.4 MG PO (20:33)
[2024-10-19 04:00] VITALS: BP 132/92; PULSE 89; RESP 14; TEMP 36.4; O2SAT 94; BMI 32.3
--- NOTE | 2024-10-19 05:11 | PC.NURSE ---
Pt. is alert and orientated x 4. Pt. is on oxygen 2 liters per NC. Pt. denies any pain . Pt. sleeping off and on this shift, Pt. stated that he was feeling better. Pt. has voiced no needs or concerns thus far. Personal items and call call in reach.
[2024-10-19] MEDS: FLUTICASONE/UMECLIDIN/VILANTER 200/62.5/25MCG INHALER 1 PUFF IH (06:21)
[2024-10-19 07:09] LABS: Hematocrit 34.8 % (42.0-52.0); Hemoglobin 10.9 g/dL (14.1-18.0); Immature Granulocytes % 1.2 %; Mean Corpuscular HGB Conc 31.3 g/dL (31.8-35.4); Mean Corpuscular Hemoglobin 27.7 pg (27.0-31.2); Mean Corpuscular Volume 88.5 fl (80-94); Nucleated Red Blood Cells % 0 %; Platelet Count 668 K/mm3 (142-424); Red Blood Count 3.93 M/mm3 (4.60-6.20); Red Cell Distribution Width-SD 47.3 fL; White Blood Count 18.7 K/mm3 (4.8-10.8)
[2024-10-19 07:38] LABS: Alanine Aminotransferase 58 U/L (12-78); Albumin Level 3.2 g/dl (3.5-5.0); Albumin/Globulin Ratio 1.0 (1.1-1.8); Alkaline Phosphatase 86 U/L (38-126); Anion Gap 15.2 mEq/L (5-15); Aspartate Amino Transferase 54 U/L (17-59); Bilirubin,Total 0.3 mg/dl (0.2-1.3); Blood Urea Nitrogen 44 mg/dl (9-20); Calcium 8.2 mg/dl (8.4-10.2); Carbon Dioxide 25 mmol/L (22.0-30.0); Chloride 101 mmol/L (98-107); Creatinine Clearance Estimated 52 mL/min (50-200); Creatinine,Serum 1.60 mg/dl (0.66-1.25); Estimated Glomerular Filt Rate 41 ml/min (>60); GFR (African American) 50 ML/MIN (>60); Globulin 3.3 g/dL (1.3-3.2); Glucose 82 mg/dl (74-100); Potassium 4.2 mmoL/L (3.5-5.1); Sodium 137 mmol/L (136-145); Total Protein,Serum 6.5 g/dl (6.3-8.2)
[2024-10-19 08:00] VITALS: BP 126/61; PULSE 80; RESP 17; TEMP 36.7; O2SAT 91
[2024-10-19 08:27] LABS: C-Reactive Protein 60.9 mg/L (0-4)
[2024-10-19 08:32] LABS: Procalcitonin 0.091 ng/mL (0.0-2.0)
[2024-10-19 08:46] LABS: Total Cells Counted 100
[2024-10-19 08:47] LABS: RBC Morphology Normal
[2024-10-19] MEDS: LISINOPRIL 20MG TABLET 20 MG PO (09:34)
[2024-10-19] MEDS: POLYETHYLENE GLYCOL 3350 17 GM PACKET PO (09:34)
[2024-10-19] MEDS: AMLODIPINE 10MG TABLET 10 MG PO (09:34)
[2024-10-19] MEDS: FUROSEMIDE 40 MG TABLET PO (09:34)
[2024-10-19 12:00] VITALS: BP 139/68; PULSE 94; RESP 16; TEMP 36.6
[2024-10-19] MEDS: BISACODYL 5MG TABLET 10 MG PO (12:10)
[2024-10-19] MEDS: ACETAMINOPHEN 325MG TAB 650 MG PO ×2 (13:12→19:30)
--- NOTE | 2024-10-19 15:03 | PC.NURSE ---
Aox 4, up with assistance times one, emani in place, 02-2L NC, 20g L AC SL, echo ordered for the am, regular diet, awaiting insurance approval for [facility].
[2024-10-19] MEDS: GLYCERIN ADULT 3GM SUPP 3 GM RC (15:52)
[2024-10-19 16:00] VITALS: BP 114/60; PULSE 76; RESP 16; TEMP 36.6; O2SAT 92
--- NOTE | 2024-10-19 18:25 | P.PN_ITS ---
Subjective *Date: 10/19/24 *Time: 18:25 Interval history: Patient continues to improve, strength improved today. Sitting on bedside chair today. Does still require rehab. Pending prior authorization from insurance for placement. Exam Data for Last 24 hours Vital signs and Labs for Last 24 Hours: Temp Pulse Resp BP Pulse Ox O2 Del Method O2 Flow Rate 97.9 F 76 16 114/60 92 L Nasal Cannula 2 10/19/24 16:00 10/19/24 16:00 10/19/24 16:00 10/19/24 16:00 10/19/24 16:00 10/19/24 17:56 10/19/24 17:56 Laboratory Results - last 24 hr 10/17/24 06:00: JOSE DANIEL Comment Comment, ROBER-1 Antibody <0.2, SS-A Antibody <0.2, SS- B Antibody <0.2, Sm (James) Antibody <0.2, [employer] Antibody <0.2, Scl-70 Scleroderma Ab <0.2, Double Strand DNA Ab 4, Chromatin Antibody <0.2, Centromere B Antibody <0.2 10/19/24 06:35: WBC 18.7 H D, RBC 3.93 L, Hgb 10.9 L, Hct 34.8 L, MCV 88.5, MCH 27.7, MCHC 31.3 L, RDW 14.5, Plt Count 668 H, MPV 9.0, Neut % (Auto) 79.6, Lymph % (Auto) 10.2, [place] % (Auto) 8.7, Eos % (Auto) 0.1, Baso % (Auto) 0.2, Neut # (Auto) 14.9 H, Lymph # (Auto) 1.9, [place] # (Auto) 1.6 H, Eos # (Auto) 0.0, Baso # (Auto) 0.0, Total Counted 100, Neutrophils % (Manual) 83 H, Lymphocytes % (Manual) 12, Monocytes % (Manual) 5, Platelet Estimate Moderate increase, RBC Morphology Normal, ESR 79 H, Sodium 137, Potassium 4.2, Chloride 101, Carbon Dioxide 25, Anion Gap 15.2 H, BUN 44 H D, Creatinine 1.60 H, Estimated Creat Clear 52, Estimated GFR 41 L, Est GFR ( Amer) 50 L, Glucose 82 D, Calcium 8.2 L, Total Bilirubin 0.3, AST 54, ALT 58, Alkaline Phosphatase 86, C- Reactive Protein 60.9 H D, Total Protein 6.5, Albumin 3.2 L, Globulin 3.3 H, Albumin/Globulin Ratio 1.0 L, Procalcitonin 0.091 I & O for Last 24 hours: Intake & Output 10/16/24 10/17/24 10/18/24 10/19/24 23:59 23:59 23:59 23:59 Intake Total 920 / 920 1040 / 1190 790 / 790 630 / 630 Output Total 400 / 1000 2625 / 2625 1100 / 1100 950 / 950 Balance 520 / -80 -1585 / -1435 -310 / -310 -320 / -320 Weight 105.233 kg 107.093 kg 106.594 kg 105.007 kg Constitutional Constitutional: no acute distress *Routine HEENT Exam Head: Present normocephalic Eye: Present EOMI and PERRL ENT: Present mucous membranes moist *Routine Neck Exam Neck: Present supple; Absent lymphadenopathy *Routine Respiratory Exam Respiratory: Present CTA bilaterally *Routine Cardiovascular Exam Cardiovascular: Present RRR *Routine Abdominal Exam Abdominal: Present soft and normoactive bowel sounds; Absent tenderness *Routine Extremities Exam Extremities: Absent cyanosis, clubbing or edema *Routine Skin Exam Skin: Present warm; Absent rash *Routine Neurological Exam Neurological: Present alert and oriented X3 Assessment and Plan *Assessment and plan (1) Bladder mass: Status: Acute Category: Medical Code(s): N32.89 - Other specified disorders of bladder (2) UTI (urinary tract infection): Status: Acute Category: Medical Code(s): N39.0 - Urinary tract infection, site not specified Plan Celestino Lundy is a 83-year-old male with a medical history significant for 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 Patient states he is unable to walk due to weakness, and also endorses diffuse muscle aches and joint pain. No known sick contacts. Denies fever/chills, chest pain, shortness of breath. Pursed lip breathing is baseline per patient. Workup in the ED significant for WBC 14.2. UA very grossly abnormal. Of note, patient apparently has undergone recent prostate surgery for suspected enlarged prostate. Postoperative complication included blood clot in his bladder requiring Fabian catheterization which has since been removed. CT abdomen/pelvis shows bladder mass 3.7 cm in diameter, but patient is making urine. Case discussed with ED provider and she was made to admit patient for physical deconditioning, UTI. #Physical deconditioning #UTI #Bladder mass/blood clot ? Presented with progressive physical deconditioning, inability to walk. Found to have UA grossly abnormal. ? CT abdomen/pelvis does show bladder mass with 3.7 cm diameter, and per david mendieta patient had a blood clot in his bladder after his prostate surgery recently. Patient is making urine however. ? Continue levofloxacin for total of 10 days, patient had been taking cefdinir outpatient and allergic to penicillins. Initially treated with IV ceftriaxone here. ? Patient continues to feel better, but continues to have lower extremity weakness and requires assistance for ambulation. Muscle aches, joint pains also significantly improved. Some suspicion for rheumatologic flare. Follow-up JOSE DANIEL panel. Uric acid normal. ? Urine culture normal, but in the setting of bladder blood clot we will continue antibiotics as above as patient is improving on this ESR, CRP significantly improving. ? WBC bumped to 18.7 today, suspect due to steroids. Continue monitor. Follow- up CBC in the morning. ? Patient will need to follow-up with urology closely upon discharge. ? Continue home tamsulosin/dutasteride. ? PT/OT consulted, recommend SNF. Accepted to [facility], pending prior authorization from insurance. #Lower extremity edema, elevated BNP ? Patient has chronic lower extremity pitting edema 1+, BNP 522. ? Follow-up ECHO. ? Started Lasix 40 mg daily. #Constipation ? MiraLAX daily. Also ordered bisacodyl, lactulose, glycerin suppository today. Has not had a bowel movement since 1 week. #COPD ? Currently stable. Pursed lip breathing is normal for patient, 2 L. Continue home Trelegy. #Hypertension ? Continue home amlodipine, benazepril. Full code DVT prophylaxis: Lovenox 40 mg
[2024-10-19 20:00] VITALS: BP 111/60; PULSE 66; RESP 14; TEMP 36.8; O2SAT 93
[2024-10-19] MEDS: TAMSULOSIN 0.4MG CAPSULE 0.4 MG PO (20:49)
[2024-10-19] MEDS: ATORVASTATIN 20MG TABLET 20 MG PO (20:49)
[2024-10-20] VITALS: BP 116/53; PULSE 85; RESP 16; TEMP 36.8; O2SAT 96
[2024-10-20 04:00] VITALS: BP 114/58; PULSE 82; RESP 14; TEMP 36.8; O2SAT 95; BMI 39.2
--- NOTE | 2024-10-20 04:18 | PC.NURSE ---
Pt A&O x4. Pt is on 2L/NC. Pt has had no acute changes this shift. Pt medicated per JUN. Pt not voicing any concerns at this time. Pt resting w/ call light in reach. Plan of care ongoing.
--- NOTE | 2024-10-20 06:00 | CA_ITS ---
APPROVED REPORT EXAM: Comprehensive 2D, Doppler, and color-flow Echocardiogram Relocation Director: Mary Quinones CRT Ht: 5 ft 10 in Wt: 231lbs BSA: 2.22 BP: 121/67 mmHg Indications: Congestive Heart Failure, COPD, Hyperlipidemia, Hypertension/HDD, exsmoker M-Mode Dimensions RVDd 3.45 cm (0.9-2.6) LA Diam 3.74 cm (1.9-4.0) LVDd 4.18 cm (3.5-5.7) LVDs 2.34 cm (3.5-5.7) IVSd 2.04 cm (0.6-1.1) PWd 0.84 cm (0.6-1.1) EF (Teich) 75.70% FS 44.00% EDV (Teich) 77.70 mL TAPSE 2.69 (<1.7) ESV (Teich) 18.90 mL LV Diastology E Decel Time 220 (160-240 msec) E/A Ratio 0.5 MED A' 17.60 cm/s LAT A' 17.50 cm/s Aortic Valve BRIAN Index 1.15 cm2/m2 AoV Peak Elton. 301.0 (50-130 cm/s) AO Peak GR. 36.40 mmHg AO Mean GR. 19.20 (<5 mmHg) AO VTI 49.0 (18-25 cm) BRIAN (VTI) 2.60 (2.5-4.5 cm2) Mitral Valve MV E Max Elton. 69.0 (40-130 cm/s) MV A Velocity 137.0 (40-130 cm/s) E/A Ratio 0.50 MV PHT 64.0 ms Pulmonary Valve PV Peak Velocity 110.0 (50-150 cm/s) Tricuspid Valve TR P. Velocity 289.00 cm/s RAP Estimate 10.00 mmHg RVSP 43.30 mmHg Left Ventricle The left ventricle is normal size. The left ventricular systolic function is hyperdynamic. There is increased LV wall thickness. No regional wall motion abnormalities are noted. Transmitral Doppler flow pattern suggests impaired LV relaxation. LVEF is 70%. Right Ventricle The right ventricle is normal size. The right ventricular systolic function is normal. Atria The left atrium size is normal. The right atrium size is normal. There is no Doppler evidence of interatrial shunt. Aortic Valve The aortic valve is mildly thickened. Mild aortic stenosis is present. BRIAN by continuity equation is 1.8 cm2. Peak velocity 2.8 m/s. Mean AV gradient 17 mmHg. Max AV gradient 31 mmHg. Trace aortic regurgitation. Mitral Valve Mild mitral annular calcification. The mitral valve leaflets are mildly thickened. No evidence of mitral valve stenosis. Trace mitral regurgitation. Tricuspid Valve Tricuspid valve is grossly normal in structure and function. Trace tricuspid regurgitation. There is insufficient TR jet to estimate RVSP. Pulmonic Valve The pulmonary valve is normal in structure. Trace pulmonic regurgitation. Great Vessels The aortic root is normal in size. IVC is normal in size and collapses >50% with inspiration. Pericardium There is no pericardial effusion. Other Information Study Quality: Technically Difficult Conclusion Technically difficult study due to poor acoustic windows. Hyperdynamic LV systolic function (LVEF 70%). Mild (BRIAN by continuity equation is 1.8 cm2. Peak velocity 2.8 m/s. Mean AV gradient 17 mmHg. Max AV gradient 31 mmHg). Electronically signed by : Michelle Velazquez MD 10/20/2024 12:00:31
[2024-10-20] MEDS: FLUTICASONE/UMECLIDIN/VILANTER 200/62.5/25MCG INHALER 1 PUFF IH (06:22)
[2024-10-20 07:47] VITALS: BP 122/62; PULSE 94; RESP 21; TEMP 36.4; O2SAT 96
[2024-10-20 07:57] LABS: Hematocrit 37.7 % (42.0-52.0); Hemoglobin 11.8 g/dL (14.1-18.0); Immature Granulocytes % 2.0 %; Mean Corpuscular HGB Conc 31.3 g/dL (31.8-35.4); Mean Corpuscular Hemoglobin 28.0 pg (27.0-31.2); Mean Corpuscular Volume 89.5 fl (80-94); Nucleated Red Blood Cells % 0 %; Platelet Count 685 K/mm3 (142-424); Red Blood Count 4.21 M/mm3 (4.60-6.20); Red Cell Distribution Width-SD 48.4 fL; White Blood Count 14.6 K/mm3 (4.8-10.8)
[2024-10-20 08:10] LABS: Alanine Aminotransferase 49 U/L (12-78); Albumin Level 3.5 g/dl (3.5-5.0); Albumin/Globulin Ratio 1.0 (1.1-1.8); Alkaline Phosphatase 93 U/L (38-126); Anion Gap 17.2 mEq/L (5-15); Aspartate Amino Transferase 37 U/L (17-59); Bilirubin,Total 0.4 mg/dl (0.2-1.3); Blood Urea Nitrogen 35 mg/dl (9-20); Calcium 9.2 mg/dl (8.4-10.2); Carbon Dioxide 26 mmol/L (22.0-30.0); Chloride 98 mmol/L (98-107); Creatinine Clearance Estimated 72 mL/min (50-200); Creatinine,Serum 1.40 mg/dl (0.66-1.25); Estimated Glomerular Filt Rate 48 ml/min (>60); GFR (African American) 59 ML/MIN (>60); Globulin 3.5 g/dL (1.3-3.2); Glucose 113 mg/dl (74-100); Potassium 4.2 mmoL/L (3.5-5.1); Sodium 137 mmol/L (136-145); Total Protein,Serum 7.0 g/dl (6.3-8.2)
[2024-10-20] MEDS: AMLODIPINE 10MG TABLET 10 MG PO (08:47)
[2024-10-20] MEDS: LISINOPRIL 20MG TABLET 20 MG PO (08:47)
[2024-10-20] MEDS: FUROSEMIDE 40 MG TABLET PO (08:48)
[2024-10-20] MEDS: POLYETHYLENE GLYCOL 3350 17 GM PACKET PO (08:49)
--- NOTE | 2024-10-20 10:08 | EXP.DC.SUM ---
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 Patient states he is unable to walk due to weakness, and also endorses diffuse muscle aches and joint pain. No known sick contacts. Denies fever/chills, chest pain, shortness of breath. Pursed lip breathing is baseline per patient. Workup in the ED significant for WBC 14.2. UA very grossly abnormal. Of note, patient apparently has undergone recent prostate surgery for suspected enlarged prostate. Postoperative complication included blood clot in his bladder requiring Fabian catheterization which has since been removed. CT abdomen/pelvis shows bladder mass 3.7 cm in diameter, but patient is making urine. Case discussed with ED provider and she was made to admit patient for physical deconditioning, UTI. 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 Patient states he is unable to walk due to weakness, and also endorses diffuse muscle aches and joint pain. No known sick contacts. Denies fever/chills, chest pain, shortness of breath. Pursed lip breathing is baseline per patient. Workup in the ED significant for WBC 14.2. UA very grossly abnormal. Of note, patient apparently has undergone recent prostate surgery for suspected enlarged prostate. Postoperative complication included blood clot in his bladder requiring Fabian catheterization which has since been removed. CT abdomen/pelvis shows bladder mass 3.7 cm in diameter, but patient is making urine. Case discussed with ED provider and she was made to admit patient for physical deconditioning, UTI. #Physical deconditioning #UTI #Bladder mass/blood clot ? Presented with progressive physical deconditioning, inability to walk. Found to have UA grossly abnormal. ? CT abdomen/pelvis does show bladder mass with 3.7 cm diameter, and per daughter patient had a blood clot in his bladder after his prostate surgery recently. Patient is making urine however. ? Continue levofloxacin for total of 10 days, patient had been taking cefdinir outpatient and allergic to penicillins. Initially treated with IV ceftriaxone here. ? Clinically improved with IV levofloxacin, feeling better overall but continues to have lower extremity weakness (improving) and requires assistance for ambulation. Muscle aches, joint pains also significantly improved. Some suspicion for rheumatologic flare. Uric acid, JOSE DANIEL panel normal. ? Urine culture normal, but in the setting of bladder blood clot we will continue antibiotics as above as patient is improving on this ESR, CRP significantly improving. ? Patient will need to follow-up with urology closely upon discharge. Referred to Dr. Chavez. ? Continue home tamsulosin/dutasteride. ? PT/OT consulted, recommend SNF. Graciously accepted to [facility], will be discharged in stable condition. #Lower extremity edema, elevated BNP ? Patient has chronic lower extremity pitting edema 1+, BNP 522. ? Started Lasix 40 mg daily. ? Echo obtained, will follow-up on report. #Constipation ? Has had bowel movements with bowel regimen. Continue MiraLAX daily. #COPD ? Currently stable. Pursed lip breathing is normal for patient, 2 L. Continue home Trelegy. #Hypertension ? Continue home amlodipine, benazepril. Exam Data for Last 24 hours Vital signs and Labs for Last 24 Hours: Temp Pulse Resp BP Pulse Ox O2 Del Method O2 Flow Rate 97.6 F 94 H 21 122/62 96 Nasal Cannula 2 10/20/24 07:47 10/20/24 07:47 10/20/24 07:47 10/20/24 07:47 10/20/24 07:47 10/20/24 08:00 10/20/24 08:00 Laboratory Results - last 24 hr 10/17/24 06:00: JOSE DANIEL Comment Comment, ROBER-1 Antibody <0.2, SS-A Antibody <0.2, SS-B Antibody <0.2, Sm (James) Antibody <0.2, PORTAL DEVELOPER Antibody <0.2, Scl-70 Scleroderma Ab <0.2, Double Strand DNA Ab 4, Chromatin Antibody <0.2, Centromere B Antibody <0.2 10/20/24 07:43: WBC 14.6 H, RBC 4.21 L, Hgb 11.8 L, Hct 37.7 L, MCV 89.5, MCH 28.0, MCHC 31.3 L, RDW 14.7, Plt Count 685 H, MPV 8.9, Neut % (Auto) 76.3, Lymph % (Auto) 10.7, Mcleod % (Auto) 10.5 H, Eos % (Auto) 0.2, Baso % (Auto) 0.3, Neut # (Auto) 11.2 H, Lymph # (Auto) 1.6, Mcleod # (Auto) 1.5 H, Eos # (Auto) 0.0, Baso # (Auto) 0.0, Sodium 137, Potassium 4.2, Chloride 98, Carbon Dioxide 26, Anion Gap 17.2 H, BUN 35 H, Creatinine 1.40 H, Estimated Creat Clear 72, Estimated GFR 48 L, Est GFR ( Amer) 59, Glucose 113 H, Calcium 9.2, Total Bilirubin 0.4, AST 37 D, ALT 49, Alkaline Phosphatase 93, Total Protein 7.0, Albumin 3.5, Globulin 3.5 H, Albumin/Globulin Ratio 1.0 L I & O for Last 24 hours: Intake & Output 10/17/24 10/18/24 10/19/24 10/20/24 23:59 23:59 23:59 23:59 Intake Total 1040 / 1190 790 / 790 630 / 630 120 / 120 Output Total 2625 / 2625 1100 / 1100 1450 / 1450 450 / 450 Balance -1585 / -1435 -310 / -310 -820 / -820 -330 / -330 Weight 107.093 kg 106.594 kg 105.007 kg 127.006 kg Microbiology Reports for the Last 24 Hours: Microbiology 10/16/24 10:00 Blood Blood Culture - Preliminary NO GROWTH AFTER 4 DAYS Constitutional Constitutional: no acute distress and obese *Routine HEENT Exam Head: Present normocephalic Eye: Present EOMI and PERRL ENT: Present mucous membranes moist *Routine Neck Exam Neck: Present supple; Absent lymphadenopathy *Routine Respiratory Exam Respiratory: Present CTA bilaterally *Routine Cardiovascular Exam Cardiovascular: Present RRR *Routine Abdominal Exam Abdominal: Present soft and normoactive bowel sounds; Absent tenderness *Routine Extremities Exam Extremities: Absent cyanosis, clubbing or edema *Routine Skin Exam Skin: Present warm; Absent rash *Routine Neurological Exam Neurological: Present alert and oriented X3 Results Data Completed and Pending Labs on day of discharge: Labs from last 24 hours 10/20/24 10/17/24 07:43 06:00 WBC 14.6 H RBC 4.21 L Hgb 11.8 L Hct 37.7 L MCV 89.5 MCH 28.0 MCHC 31.3 L RDW 14.7 Plt Count 685 H MPV 8.9 Neut % (Auto) 76.3 Lymph % (Auto) 10.7 Mcleod % (Auto) 10.5 H Eos % (Auto) 0.2 Baso % (Auto) 0.3 Neut # (Auto) 11.2 H Lymph # (Auto) 1.6 Mcleod # (Auto) 1.5 H Eos # (Auto) 0.0 Baso # (Auto) 0.0 Sodium 137 Potassium 4.2 Chloride 98 Carbon Dioxide 26 Anion Gap 17.2 H BUN 35 H Creatinine 1.40 H Estimated Creat Clear 72 Estimated GFR 48 L Est GFR ( Amer) 59 Glucose 113 H Calcium 9.2 Total Bilirubin 0.4 AST 37 D ALT 49 Alkaline Phosphatase 93 Total Protein 7.0 Albumin 3.5 Globulin 3.5 H Albumin/Globulin Ratio 1.0 L JOSE DANIEL Comment Comment ROBER-1 Antibody <0.2 SS-A Antibody <0.2 SS-B Antibody <0.2 Sm (James) Antibody <0.2 PORTAL DEVELOPER Antibody <0.2 Scl-70 Scleroderma Ab <0.2 Double Strand DNA Ab 4 Chromatin Antibody <0.2 Centromere B Antibody <0.2 Preliminary micro results at discharge 10/16/24 10:00 Blood Culture - Preliminary Blood NO GROWTH AFTER 4 DAYS 10/16/24 10:21 Blood Culture - Preliminary Blood NO GROWTH AFTER 48 HOURS DS: Diagnosis Discharge Diagnosis (1) Bladder mass: Status: Acute Code(s): N32.89 - Other specified disorders of bladder (2) UTI (urinary tract infection): Status: Acute Code(s): N39.0 - Urinary tract infection, site not specified Meds Home Medications and Allergies Home Medications ?Medication ?Instructions ?Recorded ?Confirmed ?Type fluticasone fur. 200 mcg-umeclid 1 inh inhalation DAILY #60 ea 06/24/24 10/16/24 Rx 62.5 mcg-vilant 25 mcg inhalat.powder (Trelegy Ellipta) albuterol sulfate 90 mcg/actuation 2 puff inhalation QIDP PRN 10/16/24 10/16/24 History aerosol inhaler shortness of breath or wheezing amlodipine 10 mg-benazepril 20 mg 1 cap PO DAILY 10/16/24 10/16/24 History capsule atorvastatin 20 mg tablet 20 mg PO DAILY 10/16/24 10/16/24 History dutasteride 0.5 mg-tamsulosin ER 1 cap PO DAILY 10/16/24 10/16/24 History 0.4 mg capsule ext.release 24hr mphas ezetimibe 10 mg tablet 10 mg PO DAILY 10/16/24 10/16/24 History furosemide 40 mg tablet (Lasix) 40 mg PO DAILY 30 days #0 tabs 10/18/24 10/16/24 Rx levofloxacin 750 mg tablet 750 mg PO DAILY 8 days #8 tabs 10/18/24 Rx New Prescriptions to Start Prescriptions: Hugo Preciado Allergies Allergy/AdvReac Type Severity Reaction Status Date / Time Penicillins AdvReac Severe Other Verified 10/13/24 11:47 Discharge Plan Disposition Patient Disposition: er [facility] Condition: Fair Discharge Order Discharge Orders: Discharge Order (Routine); Ordered 10/20/24 Ordered By: Hugo Husain Follow up Plan Follow up with: Too Darby PA [Physician Transport Company Manager, Cardiology] - 1 week Referral Note: Suspected HF Hugo Chavez MD [Staff Physician, Urology] - 1 week Referral Note: Call the office to make a follow up appointment on Sunday. Problems: Bladder mass Prescriptions/Medication Reconciliation: New levofloxacin 750 mg Tablet 750 mg PO DAILY 8 Days Qty: 8 0RF Continued Trelegy Ellipta 200-62.5-25 mcg blister with device 1 inh inhalation DAILY Qty: 60 12RF atorvastatin 20 mg tablet 20 mg PO DAILY albuterol sulfate 90 mcg/actuation HFA aerosol inhaler 2 puff inhalation QIDP PRN (Reason: shortness of breath or wheezing) amlodipine-benazepril 10-20 mg capsule 1 cap PO DAILY ezetimibe 10 mg tablet 10 mg PO DAILY dutasteride-tamsulosin 0.5-0.4 mg capsule, ER multiphase 24 hr 1 cap PO DAILY Changed furosemide [Lasix] 40 mg tablet 40 mg PO DAILY 30 Days Qty: 0 0RF Discontinued cefdinir 300 mg capsule 300 mg PO BID Qty: 20 0RF Problem Reconciliation Problems Reviewed?: Yes Patient Discharge Instructions Patient Instructions: DI for Urinary Tract Infection (UTI), DI for Fatigue, Stop Light COPD, Stop Light Infection Print Language: Guamanian Providers Primary Care Provider: Ronny Belle Admit Provider: Hugo Husain Attending Provider: Hugo Husain
[2024-10-20 10:20] LABS: Magnesium 2.3 mg/dl (1.6-2.3)
== END 2024-10-20 11:41 ==
LOC: ER 10:40 → 2ND 14:26
PROVIDERS: Admitting Provider Student in an Organized Health Care Education/Training Program; Emergency Provider Student in an Organized Health Care Education/Training Program; PCP Family Medicine; Visit Provider Student in an Organized Health Care Education/Training Program
DX: N39.0 Urinary tract infection, site not specified (principal); N32.89 Other specified disorders of bladder; N28.1 Cyst of kidney, acquired; N26.1 Atrophy of kidney (terminal); R91.1 Solitary pulmonary nodule; R53.81 Other malaise; J44.9 Chronic obstructive pulmonary disease, unspecified; I10 Essential (primary) hypertension; E78.5 Hyperlipidemia, unspecified; R60.0 Localized edema; N40.0 Benign prostatic hyperplasia without lower urinary tract symptoms; R79.89 Other specified abnormal findings of blood chemistry; K59.00 Constipation, unspecified; E66.9 Obesity, unspecified; Z68.39 Body mass index [BMI] 39.0-39.9, adult; Z98.890 Other specified postprocedural states; Z87.891 Personal history of nicotine dependence; Z88.0 Allergy status to penicillin; Z79.899 Other long term (current) drug therapy
CPT/HCPCS: 0223U; 36415; 71045; 71275; 74177; 80053; 81001; 82550; 82803; 83605; 83690; 83735; 83880; 84145; 84484; 84550; 85007; 85014; 85018; 85025; 85027; 85048; 85049; 85651; 86140; 86225; 86235; 86803; 87040; 87086; 87389; 87631; 87633; 87636; 93306; 94640; 96361; 96365; 96375; 96376; 97162; 97166; 97530; 99285; G0378; J0696; J1650; J1938; J1956; J2270; J2405; J2919; J7120; Q9967

== ENCOUNTER 2024-11-03 16:00 | Outpatient (CLI) | payer MEDICARE, SELFPAY ==
--- OUTSIDE RECORDS SUMMARY | 2024-11-04 14:34 | XMS_ITS | Clinical Summary ---
Author Organization [facility] Address [address] [place] [address], [address] [place] [address] Care Team Providers Care Store Receiving Clerk Name Role Phone Ronny Belle MD Primary Care Provider [phone] Allergies Active Allergy Reactions Criticality Noted Date [...] complete this topic Insurance MEDICARE Care Teams Store Receiving Clerk Relationship Specialty Start Date End Date Ronny Belle MD [address] [place] [address] PCP - General Family Medicine 04/27/22
--- OUTSIDE RECORDS SUMMARY | 2024-11-04 14:34 | XMS_ITS | Encounter Summary ---
Author Organization Healthcare Address [address] [place] [address] Care Team Providers Care Business Objects Name Role Phone Ronny Belle MD Primary Care Provider [phone] Encounter Details Date Type Department Care Team (Late st Contact Info) Description 08/26/2024 Telephone [facility] [address] [place] [address] Ben Harman MD [address] [place] [address] Social History Tobacco Use Types [...] drink first t herminio in the morning (EYE-MOTOR AND CHASSIS INSPECTOR) to steady your nerves or to [...] Nurse visit added for 1100. Address for [facility] parking garage and instructions for how to get to the clinic from the garage provided. documented in this encounter Plan of Treatment Upcoming Encounters Date Type Department Care Team (Late st Contact Info) Description 12/09/2024 1:40 PM EDT Office Visit [facility] [address] [place] [address] Carrie James PA [address] [place] [address] documented as of this encounter Visit Diagnoses Not on filedocumented in this encounter Additional Health Concerns Assessment Noted Time A fall risk assessment has been complete d for the patient 08/11/2024 10:45 AM EDT A Body Mass Index follow-up plan has been documented for the patient 08/23/2024 2:19 PM EDT documented as of this encounter Care Teams Business Objects Relationship Specialty Start Date End Date Ronny Belle MD [address] [place] [address] PCP - General 07/01/24 documented as of this encounter
--- OUTSIDE RECORDS SUMMARY | 2024-11-04 14:34 | XMS_ITS | Clinical Summary ---
Author Organization [facility] Address [address] [place] [address] Care Team Providers Care Recovery Auditor Name Role Phone Ronny Belle MD Primary Care Provider [phone] Allergies No known active allergies Social History [...] (#1) 2024 Insurance [employer] MEDICARE Care Teams Recovery Auditor Relationship Specialty Start Date End Date Ronny Belle MD [address] [place], [place] [id number] PCP - General Family Medicine 04/13/22
--- OUTSIDE RECORDS SUMMARY | 2024-11-04 14:35 | XMS_ITS | Clinical Summary ---
Author Organization [facility] [place] [address] Care Team Providers Care Director [employer] Name Role Phone Unavailable Primary Care Provider [...]
--- OUTSIDE RECORDS SUMMARY | 2024-11-04 14:35 | XMS_ITS | Encounter Summary ---
Author Organization Healthcare Address [address] [place] [address] Care Team Providers Care Forestry Aid Technician Name Role Phone Ronny Belle MD Primary Care Provider [phone] Encounter Details Date Type Department Care Team (Late st Contact Info) Description 06/09/2024 Orders Only External Location [address] [place] [address] Provider, External Social History Tobacco Use Types [...] Office Visit [facility] [address] [place] [address] Carrie James PA [address] [place] [address] documented as of this encounter Procedures Procedure [...] on filedocumented in this encounter Care Teams Forestry Aid Technician Relationship Specialty Start Date End Date Ronny Belle MD [facility] [place] [address] PCP - General 07/01/24 documented as of this encounter
--- OUTSIDE RECORDS SUMMARY | 2024-11-04 14:35 | XMS_ITS | Clinical Summary ---
Author Organization Healthcare Address [address] [place] [address] Care Team Providers Care Clinical Nursing Professor Name Role Phone Ronny Belle MD Primary Care Provider [phone] Allergies Active Allergy Reactions Criticality Noted Date [...] needed for headaches, pain or fever. Under [employer] Waves[employer] joseph berea law, monthly prescriptions (30 days) can be [...] Department Care Team Description 09/04/2024 Results Follow-Up [facility] Urology [address], [address] [place] [address] Ben Harman MD 09/02/2024 1:30 PM EDT Clinical Support [facility] Urology [address], [facility] [place] [address] Robyn Ferguson RN Urinary retention [R33.9] (Primary Dx) 09/02/2024 Travel 08/26/2024 11:00 AM EDT Clinical Support [facility] Urology [address], [facility] [place] [address] Robyn Ferguson RN Urine retention (Primary Dx) 08/26/2024 Travel 08/26/2024 Telephone [facility] Urology 0 [facility], [address] [place] [phone] Ben Harman MD 08/22/2024 12:09 PM EDT Anesthesia Event [facility] OPERATING ROOM [address] [place] [address] Jordan Reaves DO Gordon, Mark W, OFE 08/22/2024 11:42 AM EDT - 08/22/2024 1:32 PM EDT Surgery [facility] OPERATING RO[facility] [address] [place] [phone] Ben Harman MD TURBT, TURP, USING BIPOLAR CAUTERY PROBE, WITH SALINE IRRIGATION 08/22/2024 Travel 08/22/2024 Orders Only External Location [address] [place] [address] Provider, External 08/21/2024 11:48 PM EDT - 08/23/2024 4:02 PM EDT Hospital Encounter [facility] A Inpatient [address] [place] [address] Jay Salvador MD Belcher, Christopher N, MD Desai, Sameer M, MD Hensley, Patrick J, MD Hematuria, unspecified type (Primary Dx); Urinary retention; Acute UTI (urinary tract infection) Discharge Disposition: Home or Self Care 08/21/2024 Travel 08/12/2024 Telephone [facility] Urology [address] [place] [address] Ben Harman MD 08/11/2024 11:15 AM EDT Consult Medical Office Building Urology [address], [address] [place] [address] Ben Harman MD Prostate mass (Primary Dx) 08/11/2024 Telephone [facility] Pre-op Clinic [address], [address] [place] [address] Hugo Menchaca MD 08/11/2024 Travel [...] drink first t herminio in the morning (EYE-COST CONTROL SUPERVISOR) to steady your nerves or to [...] Description 12/09/2024 1:40 PM EDT [facility] Visit [facility] [address], [address] [place] [address] Carrie James PA [address] [place] [address] Health Maintenance Due Date Last Done Comments [facility]-Medicare Annual Wellness (AWV) 1940 [facility]-/Child/Adol SDOH Screenings 1940 [facility]- SDOH Screenings 1958 [facility]-Adult SDOH Screenings 1958 [facility]-DTaP,Tdap,and Td Vaccines (1 - Tdap) 10/29/1959 [facility]-Pneumococcal Vaccine: 50+ Years (1 of 1 - PCV) 1990 [facility]-Zoster Vaccines (1 of 2) 1990 [facility]-RSV Vaccine: 60+ Years or (1 - 1-dose 75+ series) 10/29/2015 [id number] Vaccine ( - season) 2023 01/25/2022, 02/09/2021, [...] ANESTHESIA PLACEHOLDER Routine 08/22/2024 12:25 PM EDT MA AN ELECTIVE ENDOTRACHEAL AIRWAY Routine 08/22/2024 12:25 [...] Bladder Volume (08/26/2024 11:15 AM EDT) Pathologist [facility] Urine, Volume 616 mL IMAGING Anatomical Region Laterality Modality Other Carrie ALVAREZ IMG POINT OF CARE ULTRASOUN D Final Result * (ABNORMAL) CBC W/O Differential (08/23/2024 4:12 AM EDT) WBC Count 11.72(H) 3.70 - 10.30 10*3/uL LAB HEMATOLOGY METHOD 08/23/2024 4:32 AM EDT [facility] RBC Count 4.13(L) 4.60 - 6.10 10*6/uL LAB HEMATOLOGY METHOD 08/23/2024 4:32 AM EDT [facility] HGB 12.1(L) 13.7 - 17.5 g/dL LAB HEMATOLOGY METHOD 08/23/2024 4:32 AM EDT [facility] HCT 37.0(L) 40.0 - 51.0 % LAB HEMATOLOGY METHOD 08/23/2024 4:32 AM EDT [facility] Platelet Count 365 155 - 369 10*3/uL LAB HEMATOLOGY METHOD 08/23/2024 4:32 AM EDT [facility] MCV 90 79 - 98 fL LAB HEMATOLOGY METHOD 08/23/2024 4:32 AM EDT [facility] MCH 29.3 26.0 - 32.0 pg LAB HEMATOLOGY METHOD 08/23/2024 4:32 AM EDT [facility] MCHC 32.7 30.7 - 35.5 g/dL LAB HEMATOLOGY METHOD 08/23/2024 4:32 AM EDT [facility] RDW 14.9(H) 11.5 - 14.5 % LAB HEMATOLOGY METHOD 08/23/2024 4:32 AM EDT [facility] MPV 9.8 8.8 - 12.5 fL LAB HEMATOLOGY METHOD 08/23/2024 4:32 AM EDT [facility] nRBC 0.0 <=0.0 per 100 WBCs LAB HEMATOLOGY METHOD 08/23/2024 4:32 AM EDT [facility] Blood Venous blood specimen / Unknown Venipuncture / Unknown 08/23/2024 4:12 AM EDT 08/23/2024 4:21 AM EDT us Ben Harman MD LAB BLOOD ORDERABLES Final Result Performing Organization Address City/State/[facility] Co de Phone Number [facility] [address] [place] [address] * (ABNORMAL) Basic Metabolic Panel, Plasma (08/23/2024 4:12 AM EDT) Glucose, Plasma 105(H) 74 - 99 mg/dL 08/23/2024 4:52 AM EDT [facility] BUN, Plasma 13 8 - 23 mg/dL 08/23/2024 4:52 AM EDT [facility] Creatinine, Plasma 1.13 0.70 - 1.20 mg/dL 08/23/2024 4:52 AM EDT [facility] BUN/Creatinine Ratio 12 08/23/2024 4:52 AM EDT [facility] Sodium, Plasma 139 136 - 145 mmol/L 08/23/2024 4:52 AM EDT [facility] Potassium, Plasma 4.7 3.6 - 4.9 mmol/L 08/23/2024 4:52 AM EDT [facility] Chloride, Plasma 107 97 - 107 mmol/L 08/23/2024 4:52 AM EDT [facility] CO2, Plasma 21(L) 22 - 29 mmol/L 08/23/2024 4:52 AM EDT [facility] Anion Gap 11 6 - 16 mmol/L 08/23/2024 4:52 AM EDT [facility] Total Calcium, Plasma 8.5(L) 8.9 - 10.2 mg/dL 08/23/2024 4:52 AM EDT [facility] eGFRcr 64.5 mL/min/1.7 3m*2 08/23/2024 4:52 AM EDT [facility] Comment:Reported eGFRcr in m L/min/1.73m2 is based the CKD-EPI 2020 equation that does not use a race coefficient. Blood Venous blood specimen / Unknown Venipuncture / Unknown 08/23/2024 4:12 AM EDT 08/23/2024 4:22 AM EDT us Ben Harman MD LAB BLOOD ORDERABLES Final Result [facility] [address] [place] [address] * Surgical Pathology Exam (08/22/2024 1:41 PM EDT) Case Report Surgical Pathology Case: [id number] Authorizing Provider: Ben Harman MD Collected: 08/22/2024 1341 Ordering Location: [facility] A OPERATING ROOM Received: 08/22/2024 1431 Pathologist: Bola Harrison MD Specimen: Prostate, Prostate Chips 08/26/2024 1:43 PM EDT [facility] Final Diagnosis PROSTATE, TRANSURETHRAL RESECTION OF PROSTATE: - 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 PROSTATE CHIPS Received in formalin labeled prostate chips are multiple pieces of pink-cherry soft tissue admixed with red-brown hemorrhagic material measuring 9.0 x 6.0 x 0.8 cm in aggregate and weighing 23.8 g. Actor Understudy sections are submitted in cassettes A1-A8. Cold Time: 10m Ciarra Aayush Rosy 08/26/2024 1:43 PM EDT [facility] Note: A resident was involved in the service. I attest I examined the relevant preparations for the specimens and confirmed the diagnosis or interpretation. 08/26/2024 1:43 PM EDT [facility] Tissue Prostate / Unknown 08/22/2024 1:41 PM EDT 08/22/2024 2:31 PM EDT Comment:Pre-op diagnosis: Hematuria, unspecified type [R31.9] Urinary retention [R33.9] us Ben Harman MD LAB PATHOLOGY ORDERABLES Fi nal Result [facility] [address] [place] [address] * MA AN ELECTIVE ENDOTRACHEAL AIRWAY, PB ANESTHESIA PLACEHOLDER (08/22/2024 12:25 PM EDT) Narrative Mamadou Donohue CRNA - 08/22/2024 12:25 PM EDT Mamadou Donohue CRNA 08/22/2024 12:40 PM Airway Date/Time: 08/22/2024 12:25 PM Reason: elective Airway not difficult General Information and Staff Patient location during procedure: OR ASSOCIATE RELATIONS SPECIALIST: Mamadou Donohue CRNA Performed: ASSOCIATE RELATIONS SPECIALIST Patient Condition Indications for airway management: [...] Final Re sult Performing Organization Address [facility] Co de Phone Number [facility] [address] [place] [address] * Urine Fischer Panel (08/22/2024 1:41 AM EDT) Extra Sent for Culture 08/22/2024 3:[address] [facility] Urine Urine specimen obtained by clean catch procedure / Unknown Non-blood Collection / Unknown 08/22/2024 1:41 AM EDT 08/22/2024 1:58 AM EDT us Jay Salvador MD LAB URINE ORDERABLES Final Re sult Performing Organization Address [facility] Co de Phone Number [facility] [address] [place] [address] * Urinalysis Microscopic Examination (08/22/2024 1:41 AM EDT) Urine Urine specimen obtained by clean catch procedure / Unknown Non-blood Collection / Unknown 08/22/2024 1:41 AM EDT 08/22/2024 1:52 AM EDT us Jay Salvador MD LAB URINE ORDERABLES Final Re sult Performing Organization Address [facility] de Phone Number [facility] [address] [place] [address] * (ABNORMAL) Urinalysis with reflex microscopic (Culture NOT Included) (08/22/2024 1:41 AM EDT) Color, Urine Red LAB URINALYSIS - AUTOMATED METHOD 08/22/2024 2:37 AM EDT [facility] Clarity, Urine Cloudy LAB URINALYSIS - AUTOMATED METHOD 08/22/2024 2:37 AM EDT [facility] Spec [place], Urine 1.015 1.005 - 1.030 LAB URINALYSIS - AUTOMATED METHOD 08/22/2024 2:37 AM EDT [facility] pH, Urine 6.5 5.0 - 8.0 LAB URINALYSIS - AUTOMATED METHOD 08/22/2024 2:37 AM EDT [facility] Protein, Urine >=300(A) Negative mg/dL LAB URINALYSIS - AUTOMATED METHOD 08/22/2024 2:37 AM EDT [facility] Glucose, Urine 100(A) Negative mg/dL LAB URINALYSIS - AUTOMATED METHOD 08/22/2024 2:37 AM EDT [facility] Ketones, Urine 15(A) Negative mg/dL LAB URINALYSIS - AUTOMATED METHOD 08/22/2024 2:37 AM EDT [facility] Blood, Urine Large(A) Negative LAB URINALYSIS - AUTOMATED METHOD 08/22/2024 2:37 AM EDT [facility] Bilirubin, Urine Large(A) Negative LAB URINALYSIS - AUTOMATED METHOD 08/22/2024 2:37 AM EDT [facility] Urobilinogen, Urine >=8.0(A) 0.2 to 1.0 mg/dL LAB URINALYSIS - AUTOMATED METHOD 08/22/2024 2:37 AM EDT [facility] Leukocytes, Urine Large(A) Negative LAB URINALYSIS - AUTOMATED METHOD 08/22/2024 2:37 AM EDT [facility] Nitrite, Urine Positive(A) Negative LAB URINALYSIS - AUTOMATED METHOD 08/22/2024 2:37 AM EDT [facility] RBC, Urine >50(A) 0 to 3 /HPF 08/22/2024 2:37 AM EDT [facility] Comment:This result was prev iously suppressed from the chart. WBC, Urine Unable to estimate due to obscuring RBC's (UNERBC) 0 to 5 /HPF 08/22/2024 2:37 AM EDT [facility] Comment:This result was prev iously suppressed from the chart. Squamous Epithelial Cells Unable to estimate due to obscuring RBC's (UNERBC) 0 to 5 /HPF 08/22/2024 2:37 AM EDT [facility] Comment:This result was prev iously suppressed from the chart. Hyaline Casts Unable to estimate due to obscuring RBC's (UNERBC) 0 to 5 /LPF 08/22/2024 2:37 AM EDT [facility] Comment:This result was prev iously suppressed from the chart. Bacteria, Urine Present Negative 08/22/2024 2:37 AM EDT [facility] Comment:This result was prev iously suppressed from the chart. Urine Urine specimen obtained by clean catch procedure / Unknown Non-blood Collection / Unknown 08/22/2024 1:41 AM EDT 08/22/2024 1:52 AM EDT Narrative [facility] - 08/22/2024 2:37 AM EDT Urinalysis dipstick results may be inaccurate due to specimen color or an interfering substance in the specimen. Performed by manual method us Jay Salvador MD LAB URINE ORDERABLES Final Re sult Performing Organization Address City/[facility]/ZIP Co de Phone Number [facility] [address] [place] [address] * (ABNORMAL) Urine Culture (08/22/2024 1:41 AM EDT) Pathologist [facility] Culture <10,000 CFU/mL Staphylococcus coagulase negative(A) 08/23/2024 8:16 AM EDT [facility] Urine Urine specimen obtained by clean catch procedure / Unknown Non-blood Collection / Unknown 08/22/2024 1:41 AM EDT 08/22/2024 1:58 AM EDT us Jay Salvador MD LAB MICROBIOLOGY - GENERAL OR DERABLES Final Result Performing Organization Address [facility]/ZIP Co de Phone Number [facility] [address] [place] [address] * ED HIV 1/2 Antibody/Antigen Screen w/Reflex to HIV 1/2 Differentiation (08/22/2024 1:26 AM EDT) HIV 1 & 2 Antibody/Antigen Screen Non Reactive Non Reactive 08/22/2024 2:15 AM EDT [facility] Comment:Screening for HIV 1 & 2 antibodies, and P24 antigen is NONREACTIVE. No confirmatory testing is required. Blood Venous blood specimen / Unknown Venipuncture / Unknown 08/22/2024 1:26 AM EDT 08/22/2024 1:34 AM EDT us Jay Salvador MD LAB BLOOD ORDERABLES Final Re sult Performing Organization Address [facility] Co de Phone Number [facility] [address] [place] [address] * Hepatitis C Antibody - ED (08/22/2024 1:26 AM EDT) Hepatitis C Antibody Negative Negative 08/22/2024 2:15 AM EDT [facility] Blood Venous blood specimen / Unknown Venipuncture / Unknown 08/22/2024 1:26 AM EDT 08/22/2024 1:34 AM EDT Jay Salvador MD LAB BLOOD ORDERABLES Final Re sult Performing Organization Address [facility] de Phone Number [facility] [address] [place] [address] * PT-INR (08/22/2024 1:26 AM EDT) Pathologist [facility] Prothrombin Time 12.8 12.0 - 14.3 sec 08/22/2024 1:58 AM EDT [facility] INR 1.0 0.9 - 1.1 08/22/2024 1:58 AM EDT [facility] Blood Venous blood specimen / Unknown Venipuncture / Unknown 08/22/2024 1:26 AM EDT 08/22/2024 1:33 AM EDT Narrative [facility] - 08/22/2024 1:58 AM EDT OPTIMAL INR RANGES FOR PATIENT ON ORAL ANTICOAGULANT THERAPY Prevention of venous thromboembolism INR 2.0 to 3.0 In patients with heart disease: Atrial fibrillation INR 2.0 to 3.0 Valvular heart disease INR 2.0 to 3.0 Tissue heart valves INR 2.0 to 3.0 Mechanical prosthetic valves INR 2.5 to 3.5 Prevention of recurrent ID INR 2.5 to 3.5 us Jay Salvador MD LAB BLOOD ORDERABLES Final Re sult [facility] [address] [place] [address] * (ABNORMAL) CBC w/diff (08/22/2024 1:26 AM EDT) WBC Count 9.33 3.70 - 10.30 10*3/uL LAB HEMATOLOGY METHOD 08/22/2024 1:35 AM EDT [facility] RBC Count 4.39(L) 4.60 - 6.10 10*6/uL LAB HEMATOLOGY METHOD 08/22/2024 1:35 AM EDT [facility] HGB 12.9(L) 13.7 - 17.5 g/dL LAB HEMATOLOGY METHOD 08/22/2024 1:35 AM EDT [facility] HCT 40.1 40.0 - 51.0 % LAB HEMATOLOGY METHOD 08/22/2024 1:35 AM EDT [facility] Platelet Count 352 155 - 369 10*3/uL LAB HEMATOLOGY METHOD 08/22/2024 1:35 AM EDT [facility] MCV 91 79 - 98 fL LAB HEMATOLOGY METHOD 08/22/2024 1:35 AM EDT [facility] MCH 29.4 26.0 - 32.0 pg LAB HEMATOLOGY METHOD 08/22/2024 1:35 AM EDT [facility] MCHC 32.2 30.7 - 35.5 g/dL LAB HEMATOLOGY METHOD 08/22/2024 1:35 AM EDT [facility] RDW 15.0(H) 11.5 - 14.5 % LAB HEMATOLOGY METHOD 08/22/2024 1:35 AM EDT [facility] MPV 9.9 8.8 - 12.5 fL LAB HEMATOLOGY METHOD 08/22/2024 1:35 AM EDT [facility] nRBC 0.0 <=0.0 per 100 WBCs LAB HEMATOLOGY METHOD 08/22/2024 1:35 AM EDT [facility] Differential Type Automated LAB HEMATOLOGY METHOD 08/22/2024 1:35 AM EDT [facility] Neutrophils % 66 % LAB HEMATOLOGY METHOD 08/22/2024 1:35 AM EDT [facility] Lymphocytes % 21 % LAB HEMATOLOGY METHOD 08/22/2024 1:35 AM EDT [facility] Monocytes % 11 % LAB HEMATOLOGY METHOD 08/22/2024 1:35 AM EDT [facility] Eosinophils % 1 % LAB HEMATOLOGY METHOD 08/22/2024 1:35 AM EDT [facility] Basophils % 0 % LAB HEMATOLOGY METHOD 08/22/2024 1:35 AM EDT [facility] Immature Granulocytes % 1 % LAB HEMATOLOGY METHOD 08/22/2024 1:35 AM EDT [facility] Neutrophils Absolute 6.13(H) 1.60 - 6.10 10*3/uL LAB HEMATOLOGY METHOD 08/22/2024 1:35 AM EDT [facility] Lymphocytes Absolute 1.97 1.20 - 3.90 10*3/uL LAB HEMATOLOGY METHOD 08/22/2024 1:35 AM EDT [facility] Monocytes Absolute 1.01(H) 0.30 - 0.90 10*3/uL LAB HEMATOLOGY METHOD 08/22/2024 1:35 AM EDT [facility] Eosinophils Absolute 0.12 0.00 - 0.50 10*3/uL LAB HEMATOLOGY METHOD 08/22/2024 1:35 AM EDT [facility] Basophils Absolute 0.04 0.00 - 0.10 10*3/uL LAB HEMATOLOGY METHOD 08/22/2024 1:35 AM EDT [facility] Immature Granulocytes Absolute 0.06 0.00 - 0.06 10*3/uL LAB HEMATOLOGY METHOD 08/22/2024 1:35 AM EDT [facility] Blood Venous blood specimen / Unknown Venipuncture / Unknown 08/22/2024 1:26 AM EDT 08/22/2024 1:33 AM EDT [facility] - 08/22/2024 1:35 AM EDT Therapeutic decision making should be based on absolute values, rather than percentages. us Jay Salvador MD LAB BLOOD ORDERABLES Final Re sult [facility] [address] [place] [address] * Type and screen (08/22/2024 1:26 AM [...] S Final Result BLOOD BANK [address] [place] [address], [place] * (ABNORMAL) CMP (08/22/2024 1:26 AM EDT) Glucose, Plasma 93 74 - 99 mg/dL 08/22/2024 2:07 AM EDT [facility] BUN, Plasma 18 8 - 23 mg/dL 08/22/2024 2:07 AM EDT [facility] Creatinine, Plasma 1.27(H) 0.70 - 1.20 mg/dL 08/22/2024 2:07 AM EDT [facility] BUN/Creatinine Ratio 14 08/22/2024 2:07 AM EDT [facility] Sodium, Plasma 142 136 - 145 mmol/L 08/22/2024 2:07 AM EDT [facility] Potassium, Plasma 4.2 3.6 - 4.9 mmol/L 08/22/2024 2:07 AM EDT [facility] Chloride, Plasma 107 97 - 107 mmol/L 08/22/2024 2:07 AM EDT [facility] CO2, Plasma 21(L) 22 - 29 mmol/L 08/22/2024 2:07 AM EDT [facility] Anion Gap 14 6 - 16 mmol/L 08/22/2024 2:07 AM EDT [facility] Total Calcium, Plasma 9.2 8.9 - 10.2 mg/dL 08/22/2024 2:07 AM EDT [facility] Total Protein 6.7 6.3 - 7.9 g/dL 08/22/2024 2:07 AM EDT [facility] Albumin, Plasma 3.8 3.5 - 5.2 g/dL 08/22/2024 2:07 AM EDT [facility] AST, Plasma 21 10 - 50 U/L 08/22/2024 2:07 AM EDT [facility] ALT, Plasma 19 10 - 50 U/L 08/22/2024 2:07 AM EDT [facility] Alkaline Phosphatase, Plasma 91 40 - 115 U/L 08/22/2024 2:07 AM EDT [facility] Total Bilirubin, Plasma 0.3 0.2 - 1.1 mg/dL 08/22/2024 2:07 AM EDT [facility] eGFRcr 56.1 mL/min/1.7 3m*2 08/22/2024 2:07 AM EDT [facility] Comment:Reported eGFRcr in m L/min/1.73m2 is based the CKD-EPI 2020 equation that does not use a race coefficient. Blood Venous blood specimen / Unknown Venipuncture / Unknown 08/22/2024 1:26 AM EDT 08/22/2024 1:33 AM EDT us Jay Salvador MD LAB BLOOD ORDERABLES Final Re sult [facility] [address] [place] [address] * POC Imaging (08/22/2024) Anatomical Region Laterality [...] Procedure discussed: discussed risks, benefits and alternatives Veterinary Virologist present: yes Timeout: timeout called immediately prior [...] updated to appropriate status: Yes Care Teams Clinical Nursing Professor Relationship Specialty Start Date End Date Ronny Belle MD [address] [place] [id number] PCP - General 07/01/24
== END 2024-11-03 23:59 | disposition home or self-care (01) ==
LOC: LAB.DROPOF 11-04 14:33
PROVIDERS: PCP Family Medicine; Visit Provider Family Medicine
DX: N39.0 Urinary tract infection, site not specified (principal)
CPT/HCPCS: 87086

== ENCOUNTER 2024-11-27 10:47 | Outpatient (CLI) | payer MEDICARE, SELFPAY ==
--- OUTSIDE RECORDS SUMMARY | 2024-11-11 10:30 | XMS_ITS | Encounter Summary ---
Author Organization Healthcare Address [address] [place] [address] Care Team Providers Care Food Safety Field Specialist Name Role Phone Ronny Belle MD Primary Care Provider [phone] Carrie James Unavailable [phone] Reason for Visit * Reason Comments Urinary Retention UTI Encounter Details Date Type Department Care Team (Late st Contact Info) Description 11/11/2024 10:30 AM EDT Office Visit [place] [facility] [address] [place] [address] Carrie James PA [address] [place] [address] Urinary retention (Primary Dx); History [...] drink first t herminio in the morning (EYE-HEATING ELEMENT BUILDER) to steady your nerves or to get [...] Yellow POCT Urine Clarity Cloudy POCT Specific [place], Urine 1.005 - 1.030 1.025 POCT Protein, [...] is abnormal POC US Bladder Volume Order: [id number] Component Ref Range & Units 10 d [...] Description 12/09/2024 1:40 PM EDT Office Visit [place] [facility] [address] [place] [address] Carrie James PA [address] [place] [address] documented as of this encounter [...] Enterococcus faecalis(A) DEANN 11/13/2024 11:06 AM EDT [facility] Comment:This isolate has bee n identified using the FDA Approved woodpellets.comer [place] System Urine Urine specimen obtained by [...] LAB MICROBIOLOGY - GENERAL ORDERABLES Final Result [facility] [address] [place] [address] * (ABNORMAL) POCT URINALYSIS DIPSTICK (11/11/2024 10:11 AM EDT) POCT Urine Color Yellow 11/11/2024 10:13 AM EDT [facility] POCT Urine Clarity Cloudy 11/11/2024 10:13 AM EDT [facility] POCT Urine Glucose Negative Negative mg/dL 11/11/2024 10:13 AM EDT [facility] POCT Urine Bilirubin Negative Negative mg/dL 11/11/2024 10:13 AM EDT [facility] POCT Urine Ketones Negative Negative mg/dL 11/11/2024 10:13 AM EDT [facility] POCT Urine Specific [place] 1.025 1.005 - 1.030 11/11/2024 10:13 AM EDT [facility] POCT Urine Blood Small(A) Negative 11/11/2024 10:13 AM EDT [facility] POCT pH, Urine 5.5 5.0 - 8.0 11/11/2024 10:13 AM EDT [facility] POCT Protein, Urine 100(A) Negative mg/dL 11/11/2024 10:13 AM EDT [facility] POCT Urobilinogen, Urine 0.2 0.2, 1.0 EU/dL 11/11/2024 10:13 AM EDT [facility] POCT Nitrite, Urine Negative Negative 11/11/2024 10:13 AM EDT [facility] POCT Urine Leukocyte Esterase Moderate(A) Negative 11/11/2024 10:13 AM EDT [facility] Urine 11/11/2024 10:1 1 AM EDT 11/11/2024 10:13 AM EDT Carrie [facility] POINT OF CARE T EST DOCKED DEVICE UNSOLICITED RESULTS Final Result [facility] [address] [place], [place] * POC US Bladder Volume (11/11/2024) [...] documented as of this encounter Care Teams Food Safety Field Specialist Relationship Specialty Start Date End Date Ronny Belle MD [address] [place] [id number] PCP - General 07/01/24 Carrie James PA [address] [place] [address] Physician Beam Saw Operator Urology 11/11/24 documented as of this encounter
--- OUTSIDE RECORDS SUMMARY | 2024-11-27 10:52 | XMS_ITS | Encounter Summary ---
Author Organization Healthcare Address [address] [place] [address] Care Team Providers Care Fire Chief'S Aide Name Role Phone Ronny Belle MD Primary Care Provider [phone] Carrie James Unavailable [phone] Reason for Visit * Reason Onset Date Comments HCN Clinical Concern/Question 11/13/2024 Encounter Details Date Type Department Care Team (Late st Contact Info) Description 11/13/2024 Telephone [place] [facility] [address] [place] [address] Carrie James PA [address] [place] [address] HCN Clinical Concern/Question Social History Tobacco Use Types Packs/Day Years Used Date Smoking Tobacco: Former Cigarettes 3 67 1 955 - 2022 Smokeless Tobacco: Never Alcohol Use Standard Drinks/Week [...] drink first t herminio in the morning (EYE-METAL SPONGE MAKING MACHINE OPERATOR) to steady your nerves or to get rid of a hangover? 0 08/22/2024 CAGE Questionnaire Score 0 025 Sex and Gender Information Value Date Recorded Sex Assigned at Male 08/22/2024 8:21 AM EDT Legal Sex Male 2:04 PM EDT Gender Identity Not on file Sexual Orientation Not on file documented as of this encounter Miscellaneous Notes * Telephone Encounter - Isabella Velasquez - 11/14/2024 8:38 AM EDT Status Update Call #2 2nd call regarding the status of the initial request. Best contact number: [phone] (mobile) Optimal time of day to reach caller: ANYTIME Additional comments/information from caller: Pts daughter is calling back to see if they can get results from urine culture. Please advise Note: Please do not reply to this message. Follow-up communication and further actions as a result of this message need to be communicated with the patient directly, if the patient is not active onMyChart. If the patient is active on MyChart, they will receive notification of the communication/outcome via [employer]. * Telephone Encounter - David Novak - 11/13/2024 3:04 PM EDT Pt and pt daughter are wanting results from 11/11. Urine cx * Telephone Encounter - Tara Corral - 11/13/2024 3:01 PM EDT Clinical Concern/Question Reason for Call: pt daughter asking for lab results for patient Best contact number: Other: [phone] Optimal time of day to reach caller: ANYTIME Additional comments/information from caller: None Note: Please do not reply to this message. Follow-up communication and further actions as a result of this message need to be communicated with the patient directly, if the patient is not active onMyChart. If the patient is active on MyChart, they will receive notification of the communication/outcome via MyChart. documented in this encounter Plan of Treatment Upcoming Encounters Date Type Department Care Team (Late st Contact Info) Description 12/09/2024 1:40 PM EDT Office Visit [facility] [address] [place] [address] Carrie James PA [address] [place] [address] documented as of this encounter Visit Diagnoses Not on filedocumented in this encounter Additional Health Concerns Assessment Noted Time A fall risk assessment has been complete d for the patient 11/11/2024 10:02 AM EDT A Body Mass Index follow-up plan has been documented for the patient 11/21/2024 3:27 PM EDT documented as of this encounter Care Teams Fire Chief'S Aide Relationship Specialty Start Date End Date Ronny Belle MD [address] [place] [address] PCP - General 07/01/24 Carrie James PA [address] [place] [address] Physician Press Feeder Urology 11/11/24 documented as of this encounter
--- OUTSIDE RECORDS SUMMARY | 2024-11-27 10:52 | XMS_ITS | Encounter Summary ---
Author Organization Healthcare Address [address] [place] [address] Care Team Providers Care Building Coordinator Name Role Phone Ronny Belle MD Primary Care Provider [phone] Carrie James Unavailable [phone] Encounter Details Date Type Department Care Team (Late st Contact Info) Description 11/14/2024 Orders Only [facility] [address] [place] [address] Carrie James PA [address] [place] [address] Urinary tract infection with hematuria, site unspecified (Primary Dx) Social History Tobacco Use Types Packs/Day Years Used Date Smoking Tobacco: Former Cigarettes 3 67 1 535 - 202 Smokeless Tobacco: Never Alcohol Use Standard Drinks/Week [...] drink first t herminio in the morning (EYE-ASSISTANT TEACHER) to steady your nerves or to get [...] Description 12/09/2024 1:40 PM EDT Office Visit [place] [facility] [address] [place] [address] Carrie James PA [id number] [place] [phone] documented as of this encounter Visit Diagnoses Diagnosis Urinary tract infection with hematuria, site unspecified- Primary documented in this encounter Additional Health Concerns Assessment Noted Time A fall risk assessment has been complete d for the patient 11/11/2024 10:02 AM EDT A Body Mass Index follow-up plan has been documented for the patient 11/21/2024 3:27 PM EDT documented as of this encounter Care Teams Building Coordinator Relationship Specialty Start Date End Date Ronny Belle MD [address] [place] [address] PCP - General 07/01/24 Carrie James PA [address] [facility] [address] [place] [address] Physician Replenishment Analyst Urology 11/11/24 documented as of this encounter
--- OUTSIDE RECORDS SUMMARY | 2024-11-27 10:52 | XMS_ITS | Clinical Summary ---
Author Organization [facility] Address [address] [place] [address], [address] [place] [address] Care Team Providers Care Knot Tying Operator Name Role Phone Ronny Belle MD Primary Care Provider [phone] Allergies Active Allergy Reactions Criticality Noted Date [...] complete this topic Insurance MEDICARE Care Teams Knot Tying Operator Relationship Specialty Start Date End Date Ronny Belle MD [address] [place] [address] PCP - General Family Medicine 04/27/22
--- OUTSIDE RECORDS SUMMARY | 2024-11-27 10:52 | XMS_ITS | Encounter Summary ---
Author Organization Healthcare Address [address] [place] [address] Care Team Providers Care Import Export Coordinator Name Role Phone Ronny Belle MD Primary Care Provider [phone] Carrie James Unavailable [phone] Encounter Details Date Type Department Care Team (Late st Contact Info) Description 06/09/2024 Orders Only External Location [address] [place] [address] Provider, External Social History Tobacco Use Types [...] Office Visit [place] [facility] [address] [place] [address] Carrie James PA [address] [place] [address] documented as of this encounter Procedures Procedure [...] on filedocumented in this encounter Care Teams Import Export Coordinator Relationship Specialty Start Date End Date Ronny Belle MD [address] [place] [address] PCP - General 07/01/24 Carrie James PA [address] [facility] [address] [place] [address] Physician Brake Linings Coater Urology 11/11/24 documented as of this encounter
--- OUTSIDE RECORDS SUMMARY | 2024-11-27 10:52 | XMS_ITS | Encounter Summary ---
Author Organization Healthcare Address [address] [place] [address] Care Team Providers Care Night Patrol Inspector Name Role Phone Ronny Belle MD Primary Care Provider [phone] Carrie James Unavailable [phone] Reason for Visit * Reason Onset Date Comments HCN Clinical Concern/Question 11/06/2024 HCN Status Update Call #1 11/06/2024 Encounter Details Date Type Department Care Team (Late st Contact Info) Description 11/06/2024 Telephone [facility] [address], [address] [place] [address] Carrie James PA [address] [place] [address] HCN Clinical Concern/Question; HCN Status Update Call #1 Social History Tobacco Use Types Packs/Day Years [...] drink first t herminio in the morning (EYE-BUTTON BREAKER) to steady your nerves or to get rid of a hangover? 0 08/22/2024 CAGE Questionnaire Score 0 025 Sex and Gender Information Value Date Recorded Sex Assigned at Male 08/22/2024 8:21 AM EDT Legal Sex Male 2:04 PM EDT Gender Identity Not on file Sexual Orientation Not on file documented as of this encounter Miscellaneous Notes * Telephone Encounter - Idania Mari - 11/07/2024 8:14 AM EDT Status Update Call #1 1st call regarding the status of the initial request. Best contact number: [phone] Optimal time of day to reach caller: ANYTIME Additional comments/information from caller: Daughter calling back about appt Note: Please do not reply to this message. Follow-up communication and further actions as a result of this message need to be communicated with the patient directly, if the patient is not active onMyChart. If the patient is active on MyChart, they will receive notification of the communication/outcome via [employer]. * Telephone Encounter - Carol Briceno LPN - 11/06/2024 12:47 PM EDT Please advise. When do you want to see this patient? Saw Dr. Harman back in August of 2024. * Telephone Encounter - Arely Diaz - 11/06/2024 10:49 AM EDT Clinical Concern/Question Reason for Call: Patient's daughter(Lia) is calling he went to the ER and spent 5 days in the hospital and was told he has another blood clot in his bladder. They wanted to see about getting him inplease he is starting to hurt again and he is not putting out as much urine. Please call Lia backwith info. Thank you Best contact number: [phone] (mobile) Optimal time of day to reach caller: ANYTIME Additional comments/information from caller: None Note: Please do not reply to this message. Follow-up communication and further actions as a result of this message need to be communicated with the patient directly, if the patient is not active onMyChart. If the patient is active on MyChart, they will receive notification of the communication/outcome via [employer]. documented in this encounter Plan of Treatment Upcoming Encounters Date Type Department Care Team (Late st Contact Info) Description 12/09/2024 1:40 PM EDT Office Visit [facility] [address] [place] [address] Carrie James PA [address] [address] documented as of this encounter Visit Diagnoses Not on filedocumented in this encounter Additional Health Concerns Assessment Noted Time A fall risk assessment has been complete d for the patient 09/02/2024 1:40 PM EDT A Body Mass Index follow-up plan has been documented for the patient 09/02/2024 3:48 PM EDT documented as of this encounter Care Teams Night Patrol Inspector Relationship Specialty Start Date End Date Ronny Belle MD [facility] [place] [address] PCP - General 07/01/24 Carrie James PA [address] [address] Physician Lead Oracle Developer Urology 11/11/24 documented as of this encounter
--- OUTSIDE RECORDS SUMMARY | 2024-11-27 10:52 | XMS_ITS | Clinical Summary ---
Author Organization [facility] Address [address] [place] [address] Care Team Providers Care And Rescue Fire Fighter Crash Fire Name Role Phone Ronny Belle MD Primary Care Provider [phone] Allergies No known active allergies Social History [...] (#1) 2024 Insurance [employer] MEDICARE Care Teams And Rescue Fire Fighter Crash Fire Relationship Specialty Start Date End Date Ronny Belle MD [address] [place], [place] [id number] PCP - General Family Medicine 04/13/22
--- OUTSIDE RECORDS SUMMARY | 2024-11-27 10:52 | XMS_ITS | Encounter Summary ---
Author Organization Healthcare Address [address] [place] [address] Care Team Providers Care Media Analytics Manager Name Role Phone Ronny Belle MD Primary Care Provider [phone] Carrie James Unavailable [phone] Encounter Details Date Type Department Care Team (Late st Contact Info) Description 11/14/2024 Results Follow-Up [facility] Urology [address], [address] [place] [address] Carrie James PA [address] [place] [address] Social History Tobacco Use Types Packs/Day Years Used Date Smoking Tobacco: Former Cigarettes 3 67 1 955 - 202 Smokeless Tobacco: Never Alcohol Use [...] drink first t herminio in the morning (EYE-BOBBIN PRESSER) to steady your nerves or to get [...] Description 12/09/2024 1:40 PM EDT Office Visit [facility] [address] [place] [phone] Carrie James PA [address] [place] [address] documented as of this encounter Visit Diagnoses Not on filedocumented in this encounter Additional Health Concerns Assessment Noted Time A fall risk assessment has been complete d for the patient 11/11/2024 10:02 AM EDT A Body Mass Index follow-up plan has been documented for the patient 11/21/2024 3:27 PM EDT documented as of this encounter Care Teams Media Analytics Manager Relationship Specialty Start Date End Date Ronny Belle MD [address] [place] [address] PCP - General 07/01/24 Carrie James PA [address] [place] [phone] Physician Medical Practitioners Urology 11/11/24 documented as of this encounter
--- OUTSIDE RECORDS SUMMARY | 2024-11-27 10:52 | XMS_ITS | Encounter Summary ---
Author Organization [facility] Address [address] [place] [address] Care Team Providers Care Regulatory Internship Name Role Phone Ronny Belle MD Primary Care Provider [phone] Carrie James Unavailable [phone] Encounter Details Date Type Department Care Team (Latest Contact Info) Description 11/11/2024 Travel Social History Tobacco Use Types Packs/Day Years Used Date Smoking Tobacco: Former Cigarettes 3 67 7 651 - 2021 Smokeless Tobacco: Never Alcohol Use [...] drink first t herminio in the morning (EYE-TECHNOLOGY PROGRAM MANAGER) to steady your nerves or [...] rd, LPN documented as of this encounter Plan of Treatment Upcoming Encounters Date Type Department Care Team (Late st Contact Info) Description 12/09/2024 1:40 PM EDT Office Visit [facility] Urology [address], [address] [place] [address] Carrie James PA [id number] [place] [address] documented as of this encounter Visit Diagnoses Not on filedocumented in this encounter Additional Health Concerns Assessment Noted Time A fall risk assessment has been complete d for the patient 11/11/2024 10:02 AM EDT A Body Mass Index follow-up plan has been documented for the patient 11/21/2024 3:27 PM EDT documented as of this encounter Care Teams Regulatory Internship Relationship Specialty Start Date End Date Ronny Belle MD [facility] [place] [address] PCP - General 07/01/24 Carrie James PA [address] [place] [address] Physician Sales Person Urology 11/11/24 documented as of this encounter
--- OUTSIDE RECORDS SUMMARY | 2024-11-27 10:52 | XMS_ITS | Clinical Summary ---
Author Organization [facility] Address [address] [place] [address] Care Team Providers Care Nailing Machine Feeder Name Role Phone Ronny Belle MD Primary Care Provider [phone] Carrie James Unavailable [phone] Allergies Active Allergy Reactions Criticality Noted Date Comments Penicillins Swelling High 07/06/2021 Medications Dutasteride-Tai sulosin HCl 0.5-0.4 MG capsule Take 1 capsule by mouth daily. Active amLODIPine-toby zepril (Lotrel) 10-20 MG capsule Take 1 capsule by mouth daily. Active atorvastatin (Lipitor) 20 MG tablet Take 1 tablet by mouth. Active ezetimibe (Zetia) 10 MG tablet Take 1 tablet by mouth. Active Trelegy Ellipta 200-62.5-25 MCG/ACT aerosol powder inhale one (1) puff daily 07/22/19 25 Active acetaminophen (Tylenol) 325 MG tablet Take 2 tablets by mouth every 6 hours as needed for headaches, pain or fever. Under [place] law, monthly prescriptions (30 days) can be refilled at 25 days and three-month prescriptions (90 days) at 80 days. Please contact the insurance company with questions if refills are denied. 100 tablet 08/24/19 25 Active albuterol 108 (90 Base) MCG/ACT inhaler 2 puffs as needed for shortness of breath or wheezing. 09/13/19 24 Active furosemide (Lasix) 40 MG tablet Take 1 tablet by mouth daily. 11/04/19 25 Active levoFLOXacin (Levaquin) 750 MG tablet Take 1 tablet by mouth daily. 11/04/19 Active linezolid (Zyvox) 600 MG tabletIndicatio ns:Urinary tract infection with hematuria, site unspecified Take 1 tablet by mouth 2 times a day for 5 days. 10 tablet 11/15/19 025 Active Problems Problem Noted Date Diagnosed Date Gross hematuria 08/22/2024 Hematuria 08/21/2024 Urinary retention 08/21/2024 Prostate mass 08/11/2024 Encounters Date Type Department Care Team Description 11/14/2024 Results Follow-Up [facility] Urology [facility] [place] [address] [place] [phone] Carrie James PA 11/14/2024 Orders Only [address] [place] [address] [place] [phone] Carrie James PA Urinary tract infection with hematuria, site unspecified (Primary Dx) 11/13/[address] [phone] Carrie James PA HCN Clinical Concern/Question 11/11/2024 10:30 AM EDT Office Visit [address] [place] [address] [place] [phone] Carrie James PA Urinary retention (Primary Dx); History of UTI 11/11/2024 Travel 11/06/[address] [phone] Carrie James PA HCN Clinical Concern/Question; HCN Status Update Call #1 09/04/2024 Results Follow-Up [address] [place] [address] [place] [phone] Ben Harman MD 09/02/2024 1:30 PM EDT Clinical Support [address] [place] [address] [place] [phone] Robyn Ferguson RN Urinary retention [R33.9] (Primary Dx) 09/02/2024 Travel from Last 3 Months Social History Tobacco Use Types Packs/Day Years Used Date Smoking Tobacco: Former Cigarettes 3 67 1 - 2021 Smokeless Tobacco: Never Tobacco Cessation:Counseling [...] first t herminio in the morning (EYE-SENIOR AIR DIRECTOR) to steady your nerves or to get [...] Pulse 97 11/11/2024 9:59 AM EDT Temperature 36.6 C (97.8 F) 09/02/2024 1:36 PM EDT Respiratory Rate 16 11/11/2024 9:59 AM EDT Oxygen Saturation 92% 11/11/2024 9:59 AM EDT Inhaled Oxygen Concentration - - Weight 105 kg (231 lb) 11/11/2024 9:59 AM EDT Height 175.3 cm (5' 9 ) 11/11/2024 9:59 AM EDT Body Mass Index 34.11 11/11/2024 9:59 AM EDT Plan of Treatment Upcoming Encounters Date Type Department Care Team (Late st Contact Info) Description 12/09/2024 1:40 PM EDT Office Visit [facility] [address] [place] [address] Carrie James PA [address] [place] [address] Health Maintenance Due Date Last Done Comments [facility]-Medicare Annual Wellness (AWV) 1940 [facility]-/Child/Adol SDOH Screenings 1940 [facility]- SDOH Screenings 1958 [facility]-Adult SDOH Screenings 1958 [facility]-DTaP,Tdap,and Td Vaccines (1 - Tdap) 10/29/1959 [facility]-Pneumococcal Vaccine: 50+ Years (1 of 1 - PCV) 1990 [facility]-Zoster Vaccines (1 of 2) 1990 [facility]-RSV Vaccine: 60+ Years or (1 - 1-dose 75+ series) 10/29/2015 [id number] Vaccine ( season) 2023 01/25/2022, 02/09/2021, 07/01/2020, Additional history exists [facility]-Influenza Vaccine (#1) 2024 [facility]-Depression Screening 11/11/2025 11/11/2024 [facility]-Obesity Intervention Completed 025, 09/02/2024, 08/21/2024, Additional history exists HPV Vaccines Aged [...] SCAN FOR VOLUME Routine 11/11/2024 Urinary retention from Last 3 Months Results * (ABNORMAL) Urine Culture - Clinic Collect (11/11/2024 10:38 AM EDT) Culture 10,000 - 100,000 CFU/mL Enterococcus faecalis(A) DEANN 11/13/2024 11:06 AM EDT [facility] Comment:This isolate has bee n identified using the FDA Approved [place] System Urine Urine specimen obtained by [...] Enterococcus faecalis Vancomycin DEANN 1 ug/ml: Susceptible us Carrie [facility] MICROBIOLOGY - GENERAL ORDERABLES Final Result [facility] [address] [place] [address] * (ABNORMAL) POCT URINALYSIS DIPSTICK (11/11/2024 10:11 AM EDT) POCT Urine Color Yellow 11/11/2024 10:[address] [facility] POCT Urine Clarity Cloudy 11/11/2024 10:[address] [facility] POCT Urine Glucose Negative Negative mg/dL 11/11/2024 10:[address] [facility] POCT Urine Bilirubin Negative Negative mg/dL 11/11/2024 10:[address] [facility] POCT Urine Ketones Negative Negative mg/dL 11/11/2024 10:[address] [facility] POCT Urine Specific [place] 1.025 1.005 - 1.030 11/11/2024 10:[address] [facility] POCT Urine Blood Small(A) Negative 11/11/2024 10:[address] [facility] POCT pH, Urine 5.5 5.0 - 8.0 11/11/2024 10:[address] [facility] POCT Protein, Urine 100(A) Negative mg/dL 11/11/2024 10:[address] [facility] POCT Urobilinogen, Urine 0.2 0.2, 1.0 EU/dL 11/11/2024 10:[address] [facility] POCT Nitrite, Urine Negative Negative 11/11/2024 10:[address] [facility] POCT Urine Leukocyte Esterase Moderate(A) Negative 11/11/2024 10:[address] [facility] Urine 11/11/2024 10:1 1 AM EDT 11/11/2024 10:13 AM EDT us Carrie [facility] POINT OF CARE T EST DOCKED DEVICE UNSOLICITED RESULTS Final Result [facility] [address] [place], [place] * POC US Bladder Volume (11/11/2024) Urine, Volume 195 mL IMAGING Anatomical Region Laterality Modality Other Urine 11/11/2024 us Carrie [facility] POINT OF CARE ULTRASOUN D Final Result from Last 3 Months Insurance Advance Directives * Full Code (Latest Code Status on File) Date Activated Date Inactivated Comments 08/22/2024 4:19 PM 08/23/2024 6:07 PM Question Answer Comments I have reviewed the capacity from the link above and, if needed, have updated to appropriate status: Yes Care Teams Nailing Machine Feeder Relationship Specialty Start Date End Date Ronny Belle MD [facility] [place] [address] PCP - General 07/01/24 Carrie James PA [address] [facility] [address] [place] [address] Physician Community Health Educator Urology 11/11/24
--- OUTSIDE RECORDS SUMMARY | 2024-11-27 10:52 | XMS_ITS | Clinical Summary ---
Author Organization [facility] [place] [address] Care Team Providers Care Welding Lead Burner Name Role Phone Unavailable Primary Care Provider [...]
[2024-11-27 11:04] LABS: Hematocrit 30.1 % (42.0-52.0); Hemoglobin 9.0 g/dL (14.1-18.0); Immature Granulocytes % 0.5 %; Mean Corpuscular HGB Conc 29.9 g/dL (31.8-35.4); Mean Corpuscular Hemoglobin 26.0 pg (27.0-31.2); Mean Corpuscular Volume 87.0 fl (80-94); Nucleated Red Blood Cells % 0 %; Platelet Count 356 K/mm3 (142-424); Red Blood Count 3.46 M/mm3 (4.60-6.20); Red Cell Distribution Width-SD 50.1 fL; White Blood Count 11.2 K/mm3 (4.8-10.8)
[2024-11-27 11:39] LABS: Alanine Aminotransferase 18 U/L (12-78); Albumin Level 3.2 g/dl (3.5-5.0); Alkaline Phosphatase 95 U/L (38-126); Anion Gap 11.6 mEq/L (5-15); Aspartate Amino Transferase 20 U/L (17-59); Bilirubin,Direct 0.1 mg/dl (0.0-0.4); Bilirubin,Indirect 0.1 mg/dL (0.0-0.9); Bilirubin,Total 0.2 mg/dl (0.2-1.3); Bilirubin,Unconjugated 0.1 mg/dL (0.0-1.1); Blood Urea Nitrogen 20 mg/dl (9-20); Calcium 8.5 mg/dl (8.4-10.2); Carbon Dioxide 28 mmol/L (22.0-30.0); Chloride 104 mmol/L (98-107); Cholesterol 126 mg/dl (140-200); Creatinine,Serum 1.20 mg/dl (0.66-1.25); Estimated Glomerular Filt Rate 58 ml/min (>60); GFR (African American) 70 ML/MIN (>60); Glucose 80 mg/dl (74-100); HDL Cholesterol 46 mg/dl (40-60); Magnesium 2.0 mg/dl (1.6-2.3); Potassium 4.6 mmoL/L (3.5-5.1); Sodium 139 mmol/L (136-145); Total Protein,Serum 6.1 g/dl (6.3-8.2); Triglycerides 100 mg/dl (30-150)
[2024-11-27 11:56] LABS: Free T4 (Free Thyroxine) 1.45 ng/dl (0.78-2.19)
[2024-11-27 12:09] LABS: Thyroid Stimulating Hormone 1.80 uIU/mL (0.465-4.68)
== END 2024-11-27 23:59 | disposition home or self-care (01) ==
LOC: LAB 10:48
PROVIDERS: PCP Family Medicine; Visit Provider Nurse Practitioner Family
DX: E78.5 Hyperlipidemia, unspecified (principal); R06.02 Shortness of breath; I10 Essential (primary) hypertension
CPT/HCPCS: 36415; 80048; 80061; 80076; 83735; 84439; 84443; 85025

== ENCOUNTER 2024-12-08 11:57 | Observation (INO) | payer MEDICARE, SELFPAY ==
--- OUTSIDE RECORDS SUMMARY | 2024-11-11 10:30 | XMS_ITS | Encounter Summary ---
Author Organization Healthcare Address [address] [place] [address] Care Team Providers Care Data Security Coordinator Name Role Phone Ronny Belle MD Primary Care Provider [phone] Carrie James Unavailable [phone] Reason for Visit * Reason Comments Urinary Retention UTI Encounter Details Date Type Department Care Team (Late st Contact Info) Description 11/11/2024 10:30 AM EDT Office Visit [place] [facility] [address] [place] [address] Carrie James PA [address] [place] [address] Urinary retention (Primary Dx); History [...] drink first t herminio in the morning (EYE-COAL SAMPLER) to steady your nerves or to get [...] Yellow POCT Urine Clarity Cloudy POCT Specific [place], Urine 1.005 - 1.030 1.025 POCT Protein, [...] is abnormal POC US Bladder Volume Order: [id number] Component Ref Range & Units 10 d [...] Office Visit [place] [facility] [address] [place] [address] Carrie James PA [address] [place] [address] documented as of this encounter [...] Enterococcus faecalis(A) DEANN 11/13/2024 11:06 AM EDT [facility] Comment:This isolate has bee n identified using the FDA Approved SNAPin Softwareer [place] System Urine Urine specimen obtained by [...] LAB MICROBIOLOGY - GENERAL ORDERABLES Final Result [facility] [address] [place] [address] * (ABNORMAL) POCT URINALYSIS DIPSTICK (11/11/2024 10:11 AM EDT) POCT Urine Color Yellow 11/11/2024 10:13 AM EDT [facility] POCT Urine Clarity Cloudy 11/11/2024 10:13 AM EDT [facility] POCT Urine Glucose Negative Negative mg/dL 11/11/2024 10:13 AM EDT [facility] POCT Urine Bilirubin Negative Negative mg/dL 11/11/2024 10:13 AM EDT [facility] POCT Urine Ketones Negative Negative mg/dL 11/11/2024 10:13 AM EDT [facility] POCT Urine Specific [place] 1.025 1.005 - 1.030 11/11/2024 10:13 AM EDT [facility] POCT Urine Blood Small(A) Negative 11/11/2024 10:13 AM EDT [facility] POCT pH, Urine 5.5 5.0 - 8.0 11/11/2024 10:13 AM EDT [facility] POCT Protein, Urine 100(A) Negative mg/dL 11/11/2024 10:13 AM EDT [facility] POCT Urobilinogen, Urine 0.2 0.2, 1.0 EU/dL 11/11/2024 10:13 AM EDT [facility] POCT Nitrite, Urine Negative Negative 11/11/2024 10:13 AM EDT [facility] POCT Urine Leukocyte Esterase Moderate(A) Negative 11/11/2024 10:13 AM EDT [facility] Urine 11/11/2024 10:1 1 AM EDT 11/11/2024 10:13 AM EDT Carrie [facility] POINT OF CARE T EST DOCKED DEVICE UNSOLICITED RESULTS Final Result [facility] [address] [place], [place] * POC US Bladder Volume (11/11/2024) [...] documented as of this encounter Care Teams Data Security Coordinator Relationship Specialty Start Date End Date Ronny Belle MD [address] [place] [id number] PCP - General 07/01/24 Carrie James PA [address] [place] [address] Physician Wholesale Loan Processor Urology 11/11/24 documented as of this encounter
[2024-12-08] VITALS (15 sets, daily range): BP systolic 94–150; BP diastolic 53–123; PULSE 73–104; RESP 15–24; TEMP 36.7–38.4; O2SAT 92–98; BMI 32.1; BMI 31.3
--- NOTE | 2024-12-08 12:14 | PC.NURSE ---
Pt placed on 2L NC due to O2 being 86-88%, care handoff report given to maggie ALEX
[2024-12-08 12:16] LABS: Coronavirus 19, PCR Not Detected (NotDetected); Influenza A, PCR Not Detected (NotDetected); Influenza B, PCR Not Detected (NotDetected)
--- NOTE | 2024-12-08 12:28 | XR_ITS ---
PROCEDURE INFORMATION: Exam: XR Chest Exam date and time: 12/08/2024 12:48 PM Age: 84 years old Clinical indication: Fever TECHNIQUE: Imaging protocol: Radiologic exam of the chest. Views: 2 views. COMPARISON: CT ANGIO CHEST PE PROTOCOL 10/16/2024 10:50 AM FINDINGS: Lungs: Subtle patchy opacities medial right lower lobe. Lungs are otherwise clear. Pleural spaces: Unremarkable. No pleural effusion. No pneumothorax. Heart/Mediastinum: Cardiomegaly. Mediastinal contours unremarkable. Bones/joints: Unremarkable. IMPRESSION: 1. Subtle patchy opacities medial right lower lobe. Concerning for infectious (including atypical) versus inflammatory etiology. Recommend imaging follow-up to resolution. 2. Cardiomegaly.
--- OUTSIDE RECORDS SUMMARY | 2024-12-08 12:30 | XMS_ITS | Clinical Summary ---
Author Organization [facility] Address [address] [place] [address] Care Team Providers Care Manager Switch Name Role Phone Ronny Belle MD Primary Care Provider [phone] Allergies No known active allergies Social History [...] (#1) 2024 Insurance [employer] MEDICARE Care Teams Manager Switch Relationship Specialty Start Date End Date Ronny Belle MD [address] [place], [place] [id number] PCP - General Family Medicine 04/13/22
--- OUTSIDE RECORDS SUMMARY | 2024-12-08 12:30 | XMS_ITS | Clinical Summary ---
Author Organization [facility] Address [address] [place] [address], [address] [place] [address] Care Team Providers Care Facilities Manager Name Role Phone Ronny Belle MD Primary Care Provider [phone] Allergies Active Allergy Reactions Criticality Noted Date [...] complete this topic Insurance MEDICARE Care Teams Facilities Manager Relationship Specialty Start Date End Date Ronny Belle MD [address] [place] [address] PCP - General Family Medicine 04/27/22
--- OUTSIDE RECORDS SUMMARY | 2024-12-08 12:30 | XMS_ITS | Encounter Summary ---
Author Organization Healthcare Address [address] [place] [address] Care Team Providers Care Complex Manager Name Role Phone Ronny Belle MD Primary Care Provider [phone] Carrie James Unavailable [phone] Reason for Visit * Reason Onset Date Comments Confirmed [place] 12/05/2024 Encounter Details Date Type Department Care Team (Late st Contact Info) Description 12/05/2024 Telephone [place] [facility] [address] [place] [address] Carrie James PA [address] [place] [address] Confirmed [place] Social History Tobacco Use Types Packs/Day Years Used Date Smoking Tobacco: Former Cigarettes 3 67 1 359 - 2022 Smokeless Tobacco: Never Alcohol Use [...] drink first t herminio in the morning (EYE-FRONT ATTENDANT) to steady your nerves or to get rid of a hangover? 0 08/22/2024 CAGE Questionnaire Score 0 025 Sex and Gender Information Value Date Recorded Sex Assigned at Male 08/22/2024 8:21 AM EDT Legal Sex Male 2:04 PM EDT Gender Identity Not on file Sexual Orientation Not on file documented as of this encounter Miscellaneous Notes * Telephone Encounter - Naila Hoff - 12/05/2024 11:00 AM EDT Confirmed appt changes from 12/09 to 01/06 at 8:30 am with ES in the [facility] at [facility], , [facility] [address] documented in this encounter Plan of Treatment Upcoming Encounters Date Type Department Care Team (Late st Contact Info) Description 01/06/2025 8:30 AM EDT Office Visit [facility] Urology [address] [place] [address] Carrie James PA [facility] [address] [phone] documented as of this encounter Visit Diagnoses Not on filedocumented in this encounter Additional Health Concerns Assessment Noted Time A fall risk assessment has been complete d for the patient 11/11/2024 10:02 AM EDT A Body Mass Index follow-up plan has been documented for the patient 11/21/2024 3:27 PM EDT documented as of this encounter Care Teams Complex Manager Relationship Specialty Start Date End Date Ronny Belle MD [address] [place] [address] PCP - General 07/01/24 Carrie James PA [address] [place] [phone] Physician Certified Midwife Urology 11/11/24 documented as of this encounter
--- OUTSIDE RECORDS SUMMARY | 2024-12-08 12:30 | XMS_ITS | Encounter Summary ---
Author Organization [facility] Address [address] [place] [address] Care Team Providers Care Flyer Repairer Name Role Phone Ronny Belle MD Primary Care Provider [phone] Carrie James Unavailable [phone] Encounter Details Date Type Department Care Team (Latest Contact Info) Description 11/11/2024 Travel Social History Tobacco Use Types Packs/Day Years Used Date Smoking Tobacco: Former Cigarettes 3 67 9 165 - 2021 Smokeless Tobacco: Never Alcohol Use [...] drink first t herminio in the morning (EYE-DRAPERY INSTALLER) to steady your nerves or to get [...] Description 01/06/2025 8:30 AM EDT Office Visit [facility] Urology [address] [place] [address] Carrie James PA [id number] [place] [address] documented as of this encounter Visit Diagnoses Not on filedocumented in this encounter Additional Health Concerns Assessment Noted Time A fall risk assessment has been complete d for the patient 11/11/2024 10:02 AM EDT A Body Mass Index follow-up plan has been documented for the patient 11/21/2024 3:27 PM EDT documented as of this encounter Care Teams Flyer Repairer Relationship Specialty Start Date End Date Ronny Belle MD [facility] [place] [address] PCP - General 07/01/24 Carrie James PA [address] [place] [address] Physician Box Office Agent Urology 11/11/24 documented as of this encounter
--- OUTSIDE RECORDS SUMMARY | 2024-12-08 12:30 | XMS_ITS | Clinical Summary ---
Author Organization [facility] Address [address] [place] [address] Care Team Providers Care Inspector Pawnshop Detail Name Role Phone Ronny Belle MD Primary Care Provider [phone] Carrie James Unavailable [phone] Allergies Active Allergy Reactions Criticality Noted Date [...] needed for headaches, pain or fever. Under [place] law, monthly prescriptions (30 days) can be [...] Encounters Date Type Department Care Team Description 12/05/[address] [facility] [address] [place] [phone] Carrie James PA Confirmed Chanegs 11/14/2024 Results Follow-Up [facility] [address] [place] [phone] Carrie James PA 11/14/[address] [facility] [address] [place] [phone] Carrie James PA Urinary tract infection with hematuria, site unspecified (Primary Dx) 11/13/[address] [facility] [address] [place] [phone] Carrie James PA HCN Clinical Concern/Question 11/11/2024 10:30 AM EDT Office Visit [facility] [address] [place] [phone] Carrie James PA Urinary retention (Primary Dx); History of UTI 11/11/2024 Travel 11/06/[address] [facility] [address] [place] [phone] Carrie James PA HCN Clinical Concern/Question; HCN Status Update Call #1 from Last 3 Months Social History Tobacco [...] drink first t herminio in the morning (EYE-CMM OPERATOR) to steady your nerves or to [...] Description 01/06/2025 8:30 AM EDT Office Visit [facility] [address] [place] [address] Carrie James PA [address] [place] [address] Health Maintenance Due Date Last Done Comments [facility]-Medicare Annual Wellness (AWV) 1940 [facility]-/Child/Adol SDOH Screenings 1940 [facility]- SDOH Screenings 1958 [facility]-Adult SDOH Screenings 1958 [facility]-DTaP,Tdap,and Td Vaccines (1 - Tdap) 10/29/1959 [facility]-Pneumococcal Vaccine: 50+ Years (1 of 1 - PCV) 1990 [facility]-Zoster Vaccines (1 of 2) 1990 [facility]-RSV Vaccine: 60+ Years or (1 - 1-dose 75+ series) 10/29/2015 [id number] Vaccine ( - season) 2023 01/25/2022, 02/09/2021, [...] - Clinic Collect (11/11/2024 10:38 AM EDT) Pathologist [facility] Culture 10,000 - 100,000 CFU/mL Enterococcus faecalis(A) DEANN 11/13/2024 11:06 AM EDT [facility] Comment:This isolate has bee n identified using the FDA Approved [employer] [facility] [place] System Urine Urine specimen obtained by [...] LAB MICROBIOLOGY - GENERAL ORDERABLES Final Result [facility] [address] [place] [address] * (ABNORMAL) POCT URINALYSIS DIPSTICK (11/11/2024 10:11 AM EDT) Pathologist [facility] POCT Urine Color Yellow 11/11/2024 10:13 AM [...] [facility] POCT Urine Specific [place] 1.025 1.005 - 1.030 11/11/2024 10:13 AM EDT [facility] POCT Urine Blood Small(A) Negative 11/11/2024 10:13 AM EDT [facility] POCT pH, Urine 5.5 5.0 - 8.0 11/11/2024 10:13 AM EDT [facility] POCT Protein, Urine 100(A) Negative mg/dL 11/11/2024 10:13 AM EDT [facility] POCT Urobilinogen, Urine 0.2 0.2, 1.0 EU/dL 11/11/2024 10:13 AM EDT [facility] POCT Nitrite, Urine Negative Negative 11/11/2024 10:13 AM EDT [facility] POCT Urine Leukocyte Esterase Moderate(A) Negative 11/11/2024 10:13 AM EDT [facility] Urine 11/11/2024 10:1 1 AM EDT 11/11/2024 10:13 AM EDT Carrie ALVAREZ LAB POINT OF CARE T EST DOCKED DEVICE UNSOLICITED RESULTS Final Result [facility] [address], [place] * POC US Bladder Volume (11/11/2024) Urine, Volume 195 mL IMAGING Anatomical Region Laterality Modality Other Urine 11/11/2024 Carrie ALVAREZ IMG POINT OF CARE ULTRASOUN D Final Result from Last [address] [place] [address] [place] [address] MEDICARE Advance Directives * Full Code (Latest Code Status on File) Date Activated Date Inactivated Comments 08/22/2024 4:19 PM 08/23/2024 6:07 PM Question Answer Comments I have reviewed the capacity from the link above and, if needed, have updated to appropriate status: Yes Care Teams Inspector Pawnshop Detail Relationship Specialty Start Date End Date Ronny Belle MD [facility] [place] [address] PCP - General 07/01/24 Carrie James PA [address] [facility] [address] [place] [address] Physician Bridge Operator Urology 11/11/24
--- OUTSIDE RECORDS SUMMARY | 2024-12-08 12:30 | XMS_ITS | Encounter Summary ---
Author Organization Healthcare Address [address] [place] [address] Care Team Providers Care Marine Superintendent Name Role Phone Ronny Belle MD Primary Care Provider [phone] Carrie James Unavailable [phone] Encounter Details Date Type Department Care Team (Late st Contact Info) Description 11/14/2024 Results Follow-Up [facility]rology [address] [place] [address] Carrie James PA [address] [place] [address] Social History Tobacco Use Types [...] t herminio in the morning (EYE-ENTRY LEVEL BUSINESS ANALYST) to steady your nerves or to [...] Description 01/06/2025 8:30 AM EDT Office Visit [facility] [address] [place] [phone] Carrie James PA [address] [place] [address] documented as of this encounter Visit Diagnoses Not on filedocumented in this encounter Additional Health Concerns Assessment Noted Time A fall risk assessment has been complete d for the patient 11/11/2024 10:02 AM EDT A Body Mass Index follow-up plan has been documented for the patient 11/21/2024 3:27 PM EDT documented as of this encounter Care Teams Marine Superintendent Relationship Specialty Start Date End Date Ronny Belle MD [address] [place] [address] PCP - General 07/01/24 Carrie James PA [address] [place] [phone] Physician Millwright Helper Urology 11/11/24 documented as of this encounter
--- OUTSIDE RECORDS SUMMARY | 2024-12-08 12:30 | XMS_ITS | Encounter Summary ---
Author Organization Healthcare Address [address] [place] [address] Care Team Providers Care Data Designer Name Role Phone Ronny Belle MD Primary Care Provider [phone] Carrie James Unavailable [phone] Reason for Visit * Reason Onset Date Comments HCN Clinical Concern/Question 11/06/2024 HCN Status Update Call #1 11/06/2024 Encounter Details Date Type Department Care Team (Late st Contact Info) Description 11/06/2024 Telephone [facility] [address] [place] [address] Carrie James PA [address] [place] [address] HCN Clinical Concern/Question; HCN Status [...] drink first t herminio in the morning (EYE-WET CHEMISTRY ANALYST) to steady your nerves or to [...] of the initial request. Best contact number: [phone] Optimal time of day to reach caller: [...] will receive notification of the communication/outcome via [place] [employer]. * Telephone Encounter - Carol Briceno LPN [...] backwith info. Thank you Best contact number: [phone] (mobile) Optimal time of day to reach caller: ANYTIME Additional comments/information from caller: None Note: Please do not reply to this message. Follow-up communication and further actions as a result of this message need to be communicated with the patient directly, if the patient is not active onMyChart. If the patient is active on MyChart, they will receive notification of the communication/outcome via Seesaw. documented in this encounter Plan of Treatment Upcoming Encounters Date Type Department Care Team (Late st Contact Info) Description 01/06/2025 8:30 AM EDT Office Visit [facility] [address] [place] [address] Carrie James PA [address] [place] [address] documented as of this encounter Visit Diagnoses Not on filedocumented in this encounter Additional Health Concerns Assessment Noted Time A fall risk assessment has been complete d for the patient 09/02/2024 1:40 PM EDT A Body Mass Index follow-up plan has been documented for the patient 09/02/2024 3:48 PM EDT documented as of this encounter Care Teams Data Designer Relationship Specialty Start Date End Date Ronny Belle MD [address] [place] [address] PCP - General 07/01/24 Carrie James PA [id number] [place] [address] Physician Film Processor Urology 11/11/24 documented as of this encounter
--- OUTSIDE RECORDS SUMMARY | 2024-12-08 12:30 | XMS_ITS | Encounter Summary ---
Author Organization Healthcare Address [address] [place] [address] Care Team Providers Care News Director Name Role Phone Ronny Belle MD Primary Care Provider [phone] Carrie James Unavailable [phone] Encounter Details Date Type Department Care Team (Late st Contact Info) Description 06/09/2024 Orders Only External Location [address] [place] [address] Provider, External Social History Tobacco Use Types [...] Description 01/06/2025 8:30 AM EDT Office Visit [facility] [address] [place] [phone] Carrie James PA [address] [place] [address] documented as of this encounter Procedures Procedure [...] on filedocumented in this encounter Care Teams News Director Relationship Specialty Start Date End Date Ronny Belle MD [address] [place] [address] PCP - General 07/01/24 Carrie James PA [address] [facility] [address] [place] [address] Physician Publications Sales Representative Urology 11/11/24 documented as of this encounter
--- OUTSIDE RECORDS SUMMARY | 2024-12-08 12:30 | XMS_ITS | Clinical Summary ---
Author Organization [facility] [place] [address] Care Team Providers Care Log Buyer Name Role Phone Unavailable Primary Care Provider [...]
--- OUTSIDE RECORDS SUMMARY | 2024-12-08 12:30 | XMS_ITS | Encounter Summary ---
Author Organization Healthcare Address [address] [place] [address] Care Team Providers Care Construction Plumber Name Role Phone Ronny Belle MD Primary Care Provider Carrie James Unavailable [phone] Encounter Details Date Type Department Care Team (Late st Contact Info) Description 11/14/2024 Orders Only [facility]rology [address] [place] [address] Carrie James PA [address] [place] [address] Urinary tract infection with hematuria, site unspecified (Primary Dx) Social History Tobacco Use Types Packs/Day Years Used Date Smoking Tobacco: Former Cigarettes 3 67 1 725 - 2021 Smokeless Tobacco: Never Alcohol Use [...] drink first t herminio in the morning (EYE-TRAVEL MED SURG RN) to steady your nerves or to get [...] Description 01/06/2025 8:30 AM EDT Office Visit [facility] [address] [place] [address] Carrie James PA [id number] [place] [phone] documented as of this encounter Visit Diagnoses [...] documented as of this encounter Care Teams Construction Plumber Relationship Specialty Start Date End Date Ronny Belle MD [address] [place] [address] PCP - General 07/01/24 Carrie James PA [address] [facility] [address] [place] [address] Physician Integrated Marketing Specialist Urology 11/11/24 documented as of this encounter
--- OUTSIDE RECORDS SUMMARY | 2024-12-08 12:30 | XMS_ITS | Encounter Summary ---
Author Organization Healthcare Address [address] 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 Best contact number: [phone] (mobile) Optimal time of day to reach [...] will receive notification of the communication/outcome via twidox. * Telephone Encounter - David Novak - 11/13/2024 3:04 PM EDT Pt and pt daughter are wanting results from 11/11. Urine cx * Telephone Encounter - Tara Corral - 11/13/2024 3:01 PM EDT Clinical Concern/Question Reason for Call: pt daughter asking for lab results for patient Best contact number: Other: [phone] Optimal time of day to reach caller: [...] Description 01/06/2025 8:30 AM EDT Office Visit [facility] Urology [address] [place] [address] Carrie James PA [address] [place] [address] documented as of this encounter Visit Diagnoses Not on filedocumented in this encounter Additional Health Concerns Assessment Noted Time A fall risk assessment has been complete d for the patient 11/11/2024 10:02 AM EDT A Body Mass Index follow-up plan has been documented for the patient 11/21/2024 3:27 PM EDT documented as of this encounter Care Teams Tin Can Feeder Relationship Specialty Start Date End Date Ronny Belle MD [address] [place] [address] PCP - General 07/01/24 Carrie James PA [address] [place] [phone] Physician Contract Admin Urology 11/11/24 documented as of this encounter
[2024-12-08 12:35] LABS: Hematocrit 29.7 % (42.0-52.0); Hemoglobin 9.2 g/dL (14.1-18.0); Immature Granulocytes % 0.7 %; Mean Corpuscular HGB Conc 31.0 g/dL (31.8-35.4); Mean Corpuscular Hemoglobin 25.8 pg (27.0-31.2); Mean Corpuscular Volume 83.4 fl (80-94); Nucleated Red Blood Cells % 0 %; Platelet Count 518 K/mm3 (142-424); Red Blood Count 3.56 M/mm3 (4.60-6.20); Red Cell Distribution Width-SD 48.9 fL; White Blood Count 14.0 K/mm3 (4.8-10.8)
[2024-12-08 12:38] LABS: Albumin Level 3.7 g/dl (3.5-5.0); Chloride 102 mmol/L (98-107); Potassium 4.8 mmoL/L (3.5-5.1); Sodium 137 mmol/L (136-145)
[2024-12-08 12:40] LABS: Blood Urea Nitrogen 22 mg/dl (9-20); Creatinine Clearance Estimated 62 mL/min (50-200); Creatinine,Serum 1.30 mg/dl (0.66-1.25); Estimated Glomerular Filt Rate 53 ml/min (>60); GFR (African American) 64 ML/MIN (>60)
[2024-12-08 12:41] LABS: Alanine Aminotransferase 23 U/L (12-78); Albumin/Globulin Ratio 1.0 (1.1-1.8); Alkaline Phosphatase 96 U/L (38-126); Anion Gap 12.8 mEq/L (5-15); Aspartate Amino Transferase 34 U/L (17-59); Bilirubin,Total 0.6 mg/dl (0.2-1.3); Calcium 9.2 mg/dl (8.4-10.2); Carbon Dioxide 27 mmol/L (22.0-30.0); Globulin 3.7 g/dL (1.3-3.2); Glucose 118 mg/dl (74-100); Total Protein,Serum 7.4 g/dl (6.3-8.2)
[2024-12-08] MEDS: ACETAMINOPHEN 1,000MG/100ML VIAL 1000 MG IV (12:47)
[2024-12-08 12:50] LABS: NT Pro Brain Natriuretic Pep. 1070 pg/mL (0-450)
--- NOTE | 2024-12-08 12:51 | ED_ITS ---
<Statement entered by Faustino Gilbert MD - 12/08/24 20:33> I was consulted by the IRVIN, and we discussed the complexity of the problems being addressed. I approve the treatment and management plan for this patient's care in the emergency department, thus performing a substantive portion of the medical decision making. Faustino Gilbert MD Discharge Plan Disposition Patient Disposition: Admitted Clinical Impressions Clinical Impression: Sepsis, Acute UTI, Pneumonia Discharge ED Provider: Faustino Gilbert General Adult HPI General Chief complaint: PAIN Stated complaint: sore, pain all over Time Seen by Provider: 12/08/24 12:01 Mode of Arrival: Wheelchair Description of Symptoms (Recalled from ER Triage Doc. by RN): Pt presents for evaluation of generalized aching pain and chills x 1 day. History of Present Illness HPI narrative: Patient presents complaining of bodyaches. He reports that he did take some Pricila aspirin. Denies any abdominal pain, chest pain, shortness of breath, urinary complaints, bowel issues, cough, congestion. He reports that several weeks ago he was admitted for similar symptoms. 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 He reports that he did have follow-up with urology and had a procedure done. He reports he has had some issues emptying his bladder he feels. complaint: body aches Onset (ago): day(s) (yesterday ) Radiation: non-radiation Severity: moderate Quality: aching Consistency: constant Relieving factors: none Exacerbating factors: none Associated symptoms: negative chest pain, cough or shortness of breath Related Data Previous Rx's ?Medication ?Instructions ?Recorded albuterol sulfate 90 mcg/actuation 2 puff inhalation Q IDP PRN 11/03/24 aerosol inhaler shortness of breath or wheez ing #8.5 grams atorvastatin 20 mg tablet 20 mg PO DAILY #90 tabs 10/08 12/01 dutasteride 0.5 mg-tamsulosin ER 1 cap PO DAILY 90 day s #90 caps 11/03/24 0.4 mg capsule ext.release 24hr mphas ezetimibe 10 mg tablet 10 mg PO DAILY #90 tabs 10/08 12/01 fluticasone fur. 200 mcg-umeclid 1 inh inhalation CROW Y #60 ea 11/03/24 62.5 mcg-vilant 25 mcg inhalat.powder (Trelegy Ellipta) benazepril 40 mg tablet 40 mg PO DAILY #90 tabs 11/07 08/01 furosemide 40 mg tablet (Lasix) 40 mg PO DAILY 90 days #90 tabs 11/20/24 Allergies Allergy/AdvReac Type Severity Reaction Status Date / Time Penicillins AdvReac Severe Other Verified 11/20/24 10:09 [facility] Disclaimer: The information contained in this section may have been updated after the patient was seen, as this information can be updated by other users. Medical History (Updated 12/08/24 @ 13:53 by KIM Davenport) SOB (shortness of breath) on exertion Edema Organizing pneumonia COPD mixed type Lung mass Lung nodule Sinusitis Pyriform sinus mass History of smoking 30 or more pack years Chest pain, atypical Murmur, cardiac Normal coronary angiogram HLD (hyperlipidemia) Essential hypertension BPH (benign prostatic hyperplasia) Surgical History History of cystoscopy History of transurethral resection of prostate Family History Other Cancer Diabetes Social History Smoking Status: Never smoker alcohol intake: never substance use type: denies use current occupational status: retired Travel in the last 8 weeks?: None household members: spouse housing: house Have you lived/traveled outside [place] in past 30 days?: No Contact w/someone who lives/traveled outside [place] past 30 days?: No Exposure to someone with infectious disease in past 14 days?: No Do you have a fever (greater than 100.4 F or 38 C)?: No Have you tested positive for COVID-19?: No Exposed to someone with COVID-19 in past 14 days?: No Do you have a sore throat?: No Do you have a cough?: No Do you have any weakness?: No Do you have any diarrhea?: No Are you experiencing any unusual bleeding?: No Do you have any muscle aches/pain?: No Do you have any abdominal pain?: No Are you experiencing loss of taste or smell?: No Other Medical History Have you received the Flu Vaccine for this season: No Have you received the Pneumonia Vaccine: No ROS Obtained: Yes Systems reviewed as appropriate & no additional complaints except as documented Physical Exam General General appearance: alert and in no apparent distress Head Head exam: atraumatic and normocephalic Eye Eye exam: Present normal appearance and EOMI Chest Chest inspection: Present symmetric chest wall rise Respiratory Respiratory exam: Present normal lung sounds bilaterally; Absent wheezes or stridor Cardiovascular Cardiovascular exam: Present regular rate and normal rhythm; Absent systolic murmur Abdominal Exam Abdominal exam: Present soft; Absent distention, tenderness or guarding Extremities Exam Extremities exam: Present full ROM Neurological Exam Neurological exam: Present alert and oriented X3 Psychiatric Psychiatric exam: Present normal affect and normal mood Skin Skin exam: Present warm, dry and intact Medical Decision Making Medical Records Screening: Per USPSTF and CDC recommendations, given the prevalence of disease in our region, it is our hospital?s policy to screen for HIV and viral Hepatitis for all patients aged 18 and over and those with ongoing risk factors. Bigg Inquiry Pt receiving controlled substance: No Vital Signs: 12/08/24 12:01 12/08/24 12:15 12/08/24 12:31 Temperature 101.1 F H Temperature Source Temporal Artery Scan Pulse Rate 101 H 103 H Pulse Rate [Right] 104 H Respiratory Rate 24 17 Blood Pressure 150/83 H 146/123 H Blood Pressure [Right Arm] 131/59 L Blood Pressure Mean [Right Arm] 83 Blood Pressure Source [Right Arm] Automatic Cuff Blood Pressure Position [Right Arm] Sitting 02 Sat by Pulse Oximetry 93 L 97 92 L Oxygen Delivery Method Room Air Oxygen Flow Rate (LPM) 12/08/24 12:49 12/08/24 13:09 12/08/24 13:15 Temperature Temperature Source Pulse Rate 92 H 99 H 99 H Pulse Rate [Right] Respiratory Rate 17 20 18 Blood Pressure 138/77 117/58 L 99/57 L Blood Pressure [Right Arm] Blood Pressure Mean [Right Arm] Blood Pressure Source [Right Arm] Blood Pressure Position [Right Arm] 02 Sat by Pulse Oximetry 98 96 95 Oxygen Delivery Method Oxygen Flow Rate (LPM) 12/08/24 13:30 12/08/24 13:55 12/08/24 14:00 Temperature Temperature Source Pulse Rate 91 H 83 82 Pulse Rate [Right] Respiratory Rate 17 16 15 Blood Pressure 94/53 L 99/60 L 112/60 Blood Pressure [Right Arm] Blood Pressure Mean [Right Arm] Blood Pressure Source [Right Arm] Blood Pressure Position [Right Arm] 02 Sat by Pulse Oximetry 97 95 95 Oxygen Delivery Method Oxygen Flow Rate (LPM) 12/08/24 14:08 Temperature 98.1 F Temperature Source Pulse Rate 85 Pulse Rate [Right] Respiratory Rate 20 Blood Pressure 112/60 Blood Pressure [Right Arm] Blood Pressure Mean [Right Arm] Blood Pressure Source [Right Arm] Blood Pressure Position [Right Arm] 02 Sat by Pulse Oximetry Oxygen Delivery Method Nasal Cannula Oxygen Flow Rate (LPM) 2 Lab Data Lab Results 12/08/24 12:06: SARS-CoV-2 (PCR) Not detected, Influenza A Untype (PCR) Not detected, Influenza Type B (PCR) Not detected 12/08/24 12:25: WBC 14.0 H, RBC 3.56 L, Hgb 9.2 L, Hct 29.7 L, MCV 83.4, MCH 25.8 L, MCHC 31.0 L, RDW 16.1, Plt Count 518 H, MPV 8.9, Neut % (Auto) 79.6, Lymph % (Auto) 10.0, Hand % (Auto) 9.5 H, Eos % (Auto) 0.0 L, Baso % (Auto) 0.2, Neut # (Auto) 11.1 H, Lymph # (Auto) 1.4, Hand # (Auto) 1.3 H, Eos # (Auto) 0.0, Baso # (Auto) 0.0, Sodium 137, Potassium 4.8, Chloride 102, Carbon Dioxide 27, Anion Gap 12.8, BUN 22 H, Creatinine 1.30 H, Estimated Creat Clear 62, Estimated GFR 53 L, Est GFR ( Amer) 64, Glucose 118 H, Lactate 1.6, Calcium 9.2, Total Bilirubin 0.6, AST 34, ALT 23, Alkaline Phosphatase 96, NT-Pro-B Natriuret Pep 1070 H, Total Protein 7.4, Albumin 3.7, Globulin 3.7 H, Albumin/Globulin Ratio 1.0 L 12/08/24 12:40: Urine Color Yellow, Urine Appearance Cloudy, Urine pH 6.0, Ur Specific [place] 1.010, Urine Protein Negative, Urine Glucose (UA) Negative, Urine Ketones Negative, Urine Blood Trace-i, Urine Nitrate Negative, Urine Bilirubin Negative, Urine Urobilinogen 0.2, Ur Leukocyte Esterase 2+ A, Urine RBC Occasional, Urine WBC 50-100, Ur Squamous Epith Cells 3-5, Urine Bacteria 2+ 12/08/24 12:25 12/08/24 12:25 Orders (Tests/Meds): ED MEDICATIONS Generic Name Dose Route Start Last Admin Trade Name Blanco PRN Reason Stop Dose Admin Acetaminophen 650 mg 12/08/24 13:47 Acetaminophen 325mg Tab PO 01/07/25 13:46 Q4HP PRN Fever or Mild Pain (1-3) Ceftriaxone Sodium 1 gm/ 50 mls @ 100 mls/hr 12/08/24 12:45 12/08/24 13:34 Sodium Chloride IV 12/18/24 12:44 Infused Q24H FRAN Infusion Azithromycin 500 mg/ Sodium 250 mls @ 250 mls/hr 12/08/24 13:45 12/08/24 13:47 Chloride IV 12/18/24 13:44 250 mls/hr Q24H FRAN Administration Vancomycin/PEG/NADA/Lysine/Water 1.75 gm in 350 mls @ 175 mls/hr 12/08/24 14:00 12/08/24 13:55 Vancomycin 1.75gm/350ml (Peg) Premix IV 12/08/24 15:59 175 mls/hr ONCE ONE Administration Ondansetron HCl 4 mg 12/08/24 13:47 Ondansetron 4mg/2ml Vial IV 01/07/25 13:46 Q8HP PRN Nausea Discontinued Medications Generic Name Dose Route Start Last Admin Trade Name Blanco PRN Reason Stop Dose Admin Acetaminophen 1,000 mg 12/08/24 12:42 12/08/24 12:47 Acetaminophen 1,000mg/100ml Vial IV 12/08/24 12:43 1,000 mg ONCE ONE Administration Miscellaneous 1 each 12/08/24 13:41 12/08/24 13:46 Pharmacy Consult Request NOTAPPLIC 12/08/24 13:42 1 each CONSULT PHARMACY ONE Administration ORDERS Category Date Time Status XR chest 2V Stat Exams 12/08/24 12:28 Completed BNP [NT Pro Brain Natriuretic Pep.] Stat Lab 12/08/24 12:25 Completed Complete Blood Count Auto Diff AMLAB Lab 12/09/24 06:00 Ordered Complete Blood Count Auto Diff AMLAB Lab 12/10/24 06:00 Ordered Complete Blood Count Auto Diff AMLAB Lab 12/11/24 06:00 Ordered Complete Blood Count Auto Diff Stat Lab 12/08/24 12:25 Completed Comprehensive Metabolic Panel AMLAB Lab 12/09/24 06:00 Ordered Comprehensive Metabolic Panel AMLAB Lab 12/10/24 06:00 Ordered Comprehensive Metabolic Panel AMLAB Lab 12/11/24 06:00 Ordered Comprehensive Metabolic Panel Stat Lab 12/08/24 12:25 Completed Lactic Acid Stat Lab 12/08/24 12:25 Completed Magnesium AMLAB Lab 12/09/24 06:00 Ordered Rapid PCR Covid and Flu A/B Stat Lab 12/08/24 12:06 Completed Urinalysis and Microscopic Stat Lab 12/08/24 12:40 Completed Blood Culture Stat Micro 12/08/24 12:44 Ordered Urine Culture Stat Micro 12/08/24 12:40 Received Medical Decision Narrative: In summary patient is a 84-year-old male who presents the emergency department for evaluation of bodyaches. Patient is tachycardic, hypertensive upon arrival, febrile. Unremarkable physical exam. Differential diagnosis includes sepsis, viral respiratory illness, UTI, pneumonia. Initial workup will be conducted with hematologic labs, urinalysis, chest x-ray, COVID flu swab. Initial inventions include Tylenol, Rocephin. Patient appears volume overloaded with bilateral lower extremity edema, will hold on IV fluids at this time. Initial workup reviewed by me reveals anemia, slight elevation in creatinine, leukocytosis, UTI, pneumonia. Upon repeat evaluation patient is feeling much better after some Tylenol and antibiotics. Given this patient admitted to hospital for sepsis, UTI, pneumonia. Critical Care Critical Care Time Critical Care Time: No
[2024-12-08 12:54] LABS: Microscopic, Urine URINE MICROSCOPIC (MICROSCOPIC)
[2024-12-08 12:59] LABS: Bilirubin,Urine Negative (Negative); Color,Urine YELLOW (Yellow); Glucose,Urine (UA) Negative (Negative); Ketones,Urine Negative (Negative); Leukocyte Esterase,Urine 2+ (Negative); PH,Urine 6.0 (5.0-8.5); Protein,Urine Negative (Negative); Specific Gravity, Urine 1.010 (1.005-1.030); Urobilinogen,Urine 0.2 EU/dl (0.2)
[2024-12-08 13:15] LABS: Bacteria,Urine 2+ /lpf; RBC,Urine Occasional #/hpf (0-3); WBC,Urine 50-100 #/hpf (0-3)
--- NOTE | 2024-12-08 13:45 | PC.NURSE ---
Provider speaking w/ hospitalist about admission
[2024-12-08] MEDS: PHARMACY CONSULT REQUEST 1 EACH NOTAPPLIC (13:46)
[2024-12-08] MEDS: AZITHROMYCIN 500 MG in 0.9 % SODIUM CHLORIDE 250 ML 250 MG IV (13:47)
[2024-12-08] MEDS: VANCOMYCIN/WATER FOR INJ (PEG) 1.75 GM/350 ML PIGGYBACK IV (13:55)
--- NOTE | 2024-12-08 15:00 | EXP.PHA.CONS ---
Pharmacy Consult Date: 12/08/24 Time: 15:00 Referring provider: Godfrey ALMODOVAR Reason for Consult:: VANCOMYCIN DOSING Allergies Allergy/AdvReac Type Severity Reaction Status Date / Time Penicillins AdvReac Severe Other Verified 11/20/24 10:09 Home Medications ?Medication ?Instructions ?Recorded ?Confirmed ?Type albuterol sulfate 90 mcg/actuation 2 puff inhalation QIDP PRN 11/03/24 12/08/24 Rx aerosol inhaler shortness of breath or wheezing #8.5 grams atorvastatin 20 mg tablet 20 mg PO DAILY #90 tabs 11/03/24 12/08/24 Rx dutasteride 0.5 mg-tamsulosin ER 1 cap PO DAILY 90 days #90 caps 11/03/24 12/08/24 Rx 0.4 mg capsule ext.release 24hr mphas ezetimibe 10 mg tablet 10 mg PO DAILY #90 tabs 11/03/24 12/08/24 Rx fluticasone fur. 200 mcg-umeclid 1 inh inhalation DAILY #60 ea 11/03/24 12/08/24 Rx 62.5 mcg-vilant 25 mcg inhalat.powder (Trelegy Ellipta) benazepril 40 mg tablet 40 mg PO DAILY #90 tabs 11/20/24 12/08/24 Rx furosemide 40 mg tablet (Lasix) 40 mg PO DAILY 90 days #90 tabs 11/20/24 12/08/24 Rx New Prescriptions to Start Prescriptions: Height: 1.8 m Weight: 104.326 kg Laboratory Results:: Laboratory Results - last 24 hr 12/08/24 12:06: SARS-CoV-2 (PCR) Not detected, Influenza A Untype (PCR) Not detected, Influenza Type B (PCR) Not detected 12/08/24 12:25: WBC 14.0 H, RBC 3.56 L, Hgb 9.2 L, Hct 29.7 L, MCV 83.4, MCH 25.8 L, MCHC 31.0 L, RDW 16.1, Plt Count 518 H, MPV 8.9, Neut % (Auto) 79.6, Lymph % (Auto) 10.0, [place] % (Auto) 9.5 H, Eos % (Auto) 0.0 L, Baso % (Auto) 0.2, Neut # (Auto) 11.1 H, Lymph # (Auto) 1.4, [place] # (Auto) 1.3 H, Eos # (Auto) 0.0, Baso # (Auto) 0.0, Sodium 137, Potassium 4.8, Chloride 102, Carbon Dioxide 27, Anion Gap 12.8, BUN 22 H, Creatinine 1.30 H, Estimated Creat Clear 62, Estimated GFR 53 L, Est GFR ( Amer) 64, Glucose 118 H, Lactate 1.6, Calcium 9.2, Total Bilirubin 0.6, AST 34, ALT 23, Alkaline Phosphatase 96, NT-Pro-B Natriuret Pep 1070 H, Total Protein 7.4, Albumin 3.7, Globulin 3.7 H, Albumin/Globulin Ratio 1.0 L 12/08/24 12:40: Urine Color Yellow, Urine Appearance Cloudy, Urine pH 6.0, Ur Specific [place] 1.010, Urine Protein Negative, Urine Glucose (UA) Negative, Urine Ketones Negative, Urine Blood Trace-i, Urine Nitrate Negative, Urine Bilirubin Negative, Urine Urobilinogen 0.2, Ur Leukocyte Esterase 2+ A, Urine RBC Occasional, Urine WBC 50-100, Ur Squamous Epith Cells 3-5, Urine Bacteria 2+ Medical History: Medical History (Updated 12/08/24 @ 13:53 by IKM Davenport) SOB (shortness of breath) on exertion Edema Organizing pneumonia COPD mixed type Lung mass Lung nodule Sinusitis Pyriform sinus mass History of smoking 30 or more pack years Chest pain, atypical Murmur, cardiac Normal coronary angiogram HLD (hyperlipidemia) Essential hypertension BPH (benign prostatic hyperplasia) Assessment and Plan Assessment and plan all Dx Assessment and Plan for all problems:: Pharmacokinetic dosing service = Objective: Patient: Floor: Age: 84 yo Serum creatinine: 1.3 mg/dL Height: 71.0 Inches Weight (kg): 104.326 Assessment: IBW (kg): 75.30 Dosing wt(kg): 104.326 Estimated Creatinine clearance (ml/min): 45.1 CRCL method: Cockcroft and Gault using ibw(default). Drug selected: Vancomycin Loading dose (mg): 0 Vd (liters): 83.5 (factor used: 0.8 L/kg) Edgar (hr-1): 0.042 Half life (hrs): 16.50 Recommended dose: 1750 mg Interval: 24 hrs Infusion time (hrs): 2.0 Predicted peak (mcg/mL): 31.7 Predicted trough (mcg/mL): 12.58 Total body weight is being used for vancomycin dosing. Recommendations: Give Vancomycin 1750 mg q 24 hrs with an expected Cpeak of 31.7 mcg/ml and an expected Ctrough of 12.58 mcg/ml ----Vanco only - ignore for aminoglycosides----- CLvanco= 3.51 L/hr AUC 0-24 /DEANN Data: DEANN 0.5 mcg/mL: AUC/DEANN: 997.2 DEANN 1.0 mcg/mL: AUC/DEANN: 498.6 --------- DEANN 1.5 mcg/mL: AUC/DEANN: 332.4 DEANN 2.0 mcg/mL: AUC/DEANN: 249.3
--- NOTE | 2024-12-08 15:22 | P.HP_ITS ---
<Statement entered by Wilber Lezama MD - 12/08/24 15:47> Rounded on patient after nurse practitioner. Personally examined and interviewed patient. Agree with exam findings and care plan as documented. History of Present Illness *Admission Date: 12/08/24 *Reason for visit:: Sepsis, UTI, pneumonia *History of present illness: Mr. Lundy is an 84-year-old male who presented to the emergency department today with bodyaches, chills, fever x 3 days. He has a primary medical history of COPD with 2 L nasal cannula use as needed, hyperlipidemia, CAD, hypertension, HFpEF, BPH with TURP. Patient was recently admitted to [facility] after a TURP procedure and bladder cyst extraction. He was discharged home and subsequently ended up admitted to our facility with urinary tract infection, he was treated with 10 days of Levaquin and discharged to [facility] for rehabilitation. He has been back home for approximately 2 weeks and developed body aches, chills, fever over the last few days. Emergency department workup revealed leukocytosis of 14.0, UTI with 2+ leuk esterase WBC 50 to 100, elevated BNP at 1070 (appears to be above patient baseline), elevated creatinine at 1.3 (patient baseline). Patient was also febrile at 101.7. [facility] Disclaimer: The information contained in this section may have been updated after the patient was seen, as this information can be updated by other users. Medical History SOB (shortness of breath) on exertion Edema Organizing pneumonia COPD mixed type Lung mass Lung nodule Sinusitis Pyriform sinus mass History of smoking 30 or more pack years Chest pain, atypical Murmur, cardiac Normal coronary angiogram HLD (hyperlipidemia) Essential hypertension BPH (benign prostatic hyperplasia) Surgical History History of cystoscopy History of transurethral resection of prostate Family History (Updated 12/08/24 @ 14:47 by Betsy Jain RN) Other BPH (benign prostatic hyperplasia) COPD (chronic obstructive pulmonary disease) Cancer Diabetes Hyperlipidemia Hypertension Lung mass Social History (Updated 12/08/24 @ 14:50 by Betsy Jain RN) Smoking Status: Never smoker alcohol intake: never substance use type: denies use current occupational status: retired Travel in the last 8 weeks?: None household members: spouse housing: house Have you lived/traveled outside [place] in past 30 days?: No Contact w/someone who lives/traveled outside [place] past 30 days?: No Exposure to someone with infectious disease in past 14 days?: No Do you have a fever (greater than 100.4 F or 38 C)?: No Have you tested positive for COVID-19?: No Exposed to someone with COVID-19 in past 14 days?: No Do you have a sore throat?: No Do you have a cough?: No Do you have any weakness?: No Do you have any diarrhea?: No Are you experiencing any unusual bleeding?: No Do you have any muscle aches/pain?: No Do you have any abdominal pain?: No Are you experiencing loss of taste or smell?: No Other Medical History Have you received the Flu Vaccine for this season: No Have you received the Pneumonia Vaccine: No Review of Systems Constitutional Constitutional: Reports body ache(s), Reports chills, Reports fatigue, Reports fever(s), Denies frequent falls, Reports lethargy, Reports malaise and Reports weakness ENT Ears, Nose, Mouth, and Throat: Denies disequilibrium, Denies dizziness, Denies otalgia, Denies nasal congestion, Denies nasal discharge and Denies sinus pressure *Cardiovascular Cardiovascular: Denies chest pain, Reports dyspnea, Reports dyspnea on exertion, Reports pedal edema and Reports rapid heart rate *Respiratory Respiratory: Denies chest congestion, Reports cough, Reports dyspnea, Reports dyspnea on exertion, Denies excessive phlegm production and Denies wheezing *Gastrointestinal Gastrointestinal: Denies abdominal pain, Denies change in bowel habits, Denies constipation, Denies diarrhea and Denies vomiting *Genitourinary Genitourinary: Reports difficulty urinating, Denies dysuria, Denies hematuria, Denies oliguria, Reports urinary frequency, Denies urinary incontinence and Denies urinary urgency *Neurologic Neurologic: Denies confusion, Denies disequilibrium, Denies dizziness, Denies frequent falls and Reports weakness Psychiatric Psychiatric: Denies confusion Endocrine Endocrine: Reports fatigue Allergic/Immunologic Allergic/Immunologic: Denies wheezing Meds Home Medications and Allergies Home Medications ?Medication ?Instructions ?Recorded ?Confirmed ?Type albuterol sulfate 90 mcg/actuation 2 puff inhalation Q IDP PRN 11/03/24 12/08/24 Rx aerosol inhaler shortness of breath or wheez ing #8.5 grams atorvastatin 20 mg tablet 20 mg PO DAILY #90 tabs 10/0812/08/24 Rx dutasteride 0.5 mg-tamsulosin ER 1 cap PO DAILY 90 day s #90 caps 11/03/24 12/08/24 Rx 0.4 mg capsule ext.release 24hr mphas ezetimibe 10 mg tablet 10 mg PO DAILY #90 tabs 10/0812/08/24 Rx fluticasone fur. 200 mcg-umeclid 1 inh inhalation CROW Y #60 ea 11/03/24 12/08/24 Rx 62.5 mcg-vilant 25 mcg inhalat.powder (Trelegy Ellipta) benazepril 40 mg tablet 40 mg PO DAILY #90 tabs 11/0712/08/24 Rx furosemide 40 mg tablet (Lasix) 40 mg PO DAILY 90 days #90 tabs 11/20/24 12/08/24 Rx New Prescriptions to Start Prescriptions: Allergies Allergy/AdvReac Type Severity Reaction Status Date / Time Penicillins AdvReac Severe Other Verified 11/20/24 10:09 Exam Data for Last 24 hours Vital signs and Labs for Last 24 Hours: Temp Pulse Resp BP Pulse Ox O2 Del Method O2 Flow Rate 98.9 F 83 20 106/73 L 95 Nasal Cannula 2 12/08/24 15:05 12/08/24 15:05 12/08/24 15:05 12/08/24 15:05 12/08/24 15:05 12/08/24 15:05 12/08/24 15:05 Laboratory Results - last 24 hr 12/08/24 12:06: SARS-CoV-2 (PCR) Not detected, Influenza A Untype (PCR) Not detected, Influenza Type B (PCR) Not detected 12/08/24 12:25: WBC 14.0 H, RBC 3.56 L, Hgb 9.2 L, Hct 29.7 L, MCV 83.4, MCH 25.8 L, MCHC 31.0 L, RDW 16.1, Plt Count 518 H, MPV 8.9, Neut % (Auto) 79.6, Lymph % (Auto) 10.0, Harvey % (Auto) 9.5 H, Eos % (Auto) 0.0 L, Baso % (Auto) 0.2, Neut # (Auto) 11.1 H, Lymph # (Auto) 1.4, Harvey # (Auto) 1.3 H, Eos # (Auto) 0.0, Baso # (Auto) 0.0, Sodium 137, Potassium 4.8, Chloride 102, Carbon Dioxide 27, Anion Gap 12.8, BUN 22 H, Creatinine 1.30 H, Estimated Creat Clear 62, Estimated GFR 53 L, Est GFR ( Amer) 64, Glucose 118 H, Lactate 1.6, Calcium 9.2, Total Bilirubin 0.6, AST 34, ALT 23, Alkaline Phosphatase 96, NT-Pro-B Natriuret Pep 1070 H, Total Protein 7.4, Albumin 3.7, Globulin 3.7 H, Albumin/Globulin Ratio 1.0 L 12/08/24 12:40: Urine Color Yellow, Urine Appearance Cloudy, Urine pH 6.0, Ur Specific [place] 1.010, Urine Protein Negative, Urine Glucose (UA) Negative, Urine Ketones Negative, Urine Blood Trace-i, Urine Nitrate Negative, Urine Bilirubin Negative, Urine Urobilinogen 0.2, Ur Leukocyte Esterase 2+ A, Urine RBC Occasional, Urine WBC 50-100, Ur Squamous Epith Cells 3-5, Urine Bacteria 2+ I & O for Last 24 hours: Intake & Output 12/05/24 12/06/24 12/07/24 12/08/24 23:59 23:59 23:59 23:59 Intake Total 50 / 50 Balance 50 / 50 Weight 98.928 kg Constitutional Constitutional: no acute distress, obese and cooperative *Routine HEENT Exam Head: Present normocephalic Eye: Present EOMI ENT: Present mucous membranes moist *Routine Neck Exam Neck: Present supple and full ROM; Absent JVD or lymphadenopathy *Routine Respiratory Exam Respiratory: Present respiratory distress, crackles (Right base), normal respiratory effort, able to speak in complete sentences and symmetric chest movement; Absent wheezes *Routine Cardiovascular Exam Cardiovascular: Present RRR, Normal S1, Normal S2 and murmur *Routine Abdominal Exam Abdominal: Present soft, normoactive bowel sounds and obese; Absent tenderness or distended *Routine Rectal Exam Rectal:: deferred *Routine Genitalia Exam Genitalia:: deferred *Routine Extremities Exam Extremities: Present edema (Bilateral feet), full ROM, pulses intact and normal capillary refill; Absent clubbing or calf tenderness *Routine Skin Exam Skin: Present intact and dry; Absent erythema or rash *Routine Neurological Exam Neurological: Present alert, moving all extremities and normal speech Routine Psychiatric Exam Psychiatric: Present normal affect and normal thought process Assessment and Plan *Assessment and plan (1) Sepsis: Status: Acute Category: Medical Code(s): A41.9 - Sepsis, unspecified organism (2) Acute UTI: Status: Acute Category: Medical Code(s): N39.0 - Urinary tract infection, site not specified (3) Pneumonia: Status: Acute Category: Medical Code(s): J18.9 - Pneumonia, unspecified organism (4) SOB (shortness of breath) on exertion: Status: Acute Category: Medical Code(s): R06.02 - Shortness of breath (5) Edema: Status: Acute Qualifiers: Edema type: localized Qualified Code(s): R60.0 - Localized edema Category: Medical Code(s): R60.9 - Edema, unspecified (6) Weakness: Status: Acute Category: Medical Code(s): R53.1 - Weakness (7) Bladder mass: Status: Acute Category: Medical Code(s): N32.89 - Other specified disorders of bladder Plan Mr. Lundy is an 84-year-old male who presented to the emergency department today with bodyaches, chills, fever x 3 days. He has a primary medical history of COPD with 2 L nasal cannula use as needed, hyperlipidemia, CAD, hypertension, HFpEF, BPH with TURP. Patient was recently admitted to [facility] after a TURP procedure and bladder cyst extraction. He was discharged home and subsequently ended up admitted to our facility with urinary tract infection, he was treated with 10 days of Levaquin and discharged to [facility] for rehabilitation. He has been back home for approximately 2 weeks and developed body aches, chills, fever over the last few days. Emergency department workup revealed leukocytosis of 14.0, UTI with 2+ leuk esterase WBC 50 to 100, elevated BNP at 1070 (appears to be above patient baseline), elevated creatinine at 1.3 (patient baseline). Patient was also febrile at 101.7. Patient was given azithromycin and Rocephin IV, IV Tylenol in the emergency department. ED physician consulted hospital medicine for admission due to UTI, sepsis, pneumonia. I agreed to accept the patient, plan of care is as follows: #Sepsis #Acute UTI #Pneumonia ? Patient endorses fever, chills, body aches for approximately 3 days. Does deny painful urination, productive cough, nausea, vomiting, diarrhea. Patient received azithromycin 500 mg and Rocephin 1 g in the emergency department, will transition to azithromycin 500 mg IV every 24 hours and cefepime 2 g every 12 hours for pneumonia and UTI coverage. Will also initiate vancomycin dosed per pharmacy. ? Patient currently normotensive, nontachycardic, afebrile. Patient wearing baseline 2 L nasal cannula O2 saturation 95%. Continuous cardiac telemetry and pulse oximetry ordered. ? Postvoid residual ordered, strict I's and O's. Patient does endorse urinating frequently, patient currently takes Lasix 40 mg daily. ? Leukocytosis of 14.0, blood cultures and urine culture pending. ? Patient states he recently (October 2024) had TURP and bladder cyst removed at , awaiting records. Patient states at that time he did have a Fabian catheter for approximately 1 week. Will continue to monitor strict urine output. ? Sepsis bolus held at this time due to HFpEF and volume overload, continuing Lasix 40 mg daily at this time. ? Patient's abdomen/pelvis CT showed bladder mass in October 2024, patient does follow with Dr. Chavez at [facility] urology. ? CBC, CMP, magnesium ordered for the a.m. #Weakness #Shortness of breath ? PT/OT consulted for further evaluation of patient's generalized weakness. Patient states he is at baseline shortness of breath, pursed lips breathing. ? DuoNebs every 6 hours scheduled. Trelegy inhaler continue daily. Full code VTE?IPC's PT/OT consult?ambulate as tolerated Cardiac diet
[2024-12-08] MEDS: IPRATROPIUM/ALBUTEROL 3 ML NEB IH ×2 (18:10→23:22)
[2024-12-08] MEDS: PAT OWN MED ***ATORVASTATIN 20MG 20 MG PO (20:40)
[2024-12-08] MEDS: CEFEPIME HCL 2 GM in 0.9 % SODIUM CHLORIDE 100 ML IV (21:55)
[2024-12-09] VITALS (13 sets, daily range): BP systolic 117–137; BP diastolic 57–80; PULSE 75–103; RESP 10–22; TEMP 36.7–37.1; O2SAT 93–100; BMI 31.2
[2024-12-09 05:40] LABS: Alanine Aminotransferase 19 U/L (12-78); Albumin Level 3.1 g/dl (3.5-5.0); Albumin/Globulin Ratio 1.0 (1.1-1.8); Alkaline Phosphatase 81 U/L (38-126); Anion Gap 11.1 mEq/L (5-15); Aspartate Amino Transferase 28 U/L (17-59); Bilirubin,Total 0.4 mg/dl (0.2-1.3); Blood Urea Nitrogen 19 mg/dl (9-20); Calcium 8.7 mg/dl (8.4-10.2); Carbon Dioxide 24 mmol/L (22.0-30.0); Chloride 103 mmol/L (98-107); Creatinine Clearance Estimated 64 mL/min (50-200); Creatinine,Serum 1.20 mg/dl (0.66-1.25); Estimated Glomerular Filt Rate 58 ml/min (>60); GFR (African American) 70 ML/MIN (>60); Globulin 3.2 g/dL (1.3-3.2); Glucose 95 mg/dl (74-100); Magnesium 1.8 mg/dl (1.6-2.3); Potassium 4.1 mmoL/L (3.5-5.1); Sodium 134 mmol/L (136-145); Total Protein,Serum 6.3 g/dl (6.3-8.2)
[2024-12-09 05:41] LABS: Hematocrit 25.0 % (42.0-52.0); Immature Granulocytes % 0.5 %; Mean Corpuscular HGB Conc 31.6 g/dL (31.8-35.4); Mean Corpuscular Hemoglobin 26.1 pg (27.0-31.2); Mean Corpuscular Volume 82.5 fl (80-94); Nucleated Red Blood Cells % 0 %; Platelet Count 475 K/mm3 (142-424); Red Blood Count 3.03 M/mm3 (4.60-6.20); Red Cell Distribution Width-SD 48.8 fL; White Blood Count 11.1 K/mm3 (4.8-10.8)
--- NOTE | 2024-12-09 05:59 | PC.NURSE ---
Pt. was admitted yesterday for Sepsis, UTI, and Pneumonia. Pt. had a 3 day history of fever, chills, and body aches. Pt. has a TURP and bladder cyst removal done at in October and has not felt well since that time. C/o generalized weakness and more shortness of breath with exertion. Pt. is alert and orientated x 4. Pt. is on oxygen 2 liters per N/C. per his base line. Pt. getting IV antibiotics , tolerating well. Pt. slept off and on this shift. SCD's in place. Personal items and call call in reach. Bed in low and locked position. safety measures in place. Pt. needs PT/OT and case amnagement consults.
[2024-12-09 06:06] LABS: Hemoglobin 7.9 g/dL (14.1-18.0)
[2024-12-09] MEDS: VILANTEROL IH (06:10)
[2024-12-09] MEDS: FLUTICASONE FUROATE IH (06:10)
[2024-12-09] MEDS: IPRATROPIUM/ALBUTEROL 3 ML NEB IH ×4 (06:10→23:18)
[2024-12-09] MEDS: UMECLIDINIUM IH (06:10)
[2024-12-09] MEDS: FUROSEMIDE 40 MG TABLET PO (08:26)
[2024-12-09] MEDS: TAMSULOSIN PO (08:27)
[2024-12-09] MEDS: EZETIMIBE 10MG TABLET 10 MG PO (08:27)
[2024-12-09] MEDS: DUTASTERIDE PO (08:27)
[2024-12-09 08:36] LABS: Iron 22 ug/dL (49-181)
[2024-12-09 08:45] LABS: Total Iron Binding Capacity 246 ug/dL (261-462)
[2024-12-09 09:12] LABS: Ferritin 218 ng/ml (17.9-464)
[2024-12-09] MEDS: CEFEPIME HCL 2 GM in 0.9 % SODIUM CHLORIDE 100 ML IV ×2 (09:17→21:39)
[2024-12-09 09:26] LABS: Vitamin B12 230 pg/mL (239-931)
[2024-12-09] MEDS: VANCOMYCIN/WATER FOR INJ (PEG) 1.75 GM/350 ML PIGGYBACK IV (10:01)
--- NOTE | 2024-12-09 10:15 | SW/DCPLANNER ---
Addendum entered by Agustina Resendiz 12/12/24 11:17: I spoke w/ Keri Adams, patient and daughter (Che) today regarding discharge plans. Patient will discharge home w/ family assistance, return to [facility] for next 5 days for IV Dapto and to [facility] for outpatient PT services. Patient will discharge home today. Addendum entered by Agustina Resendiz 12/09/24 11:27: I spoke w/ patient's daughter (Che) at bedside. Che stated that after discussion between her and patient they prefer he return home and continue outpatient PT services at [facility]. Patient has all appropriate DME at home. I will continue to follow up w/ patient and assist w/ any needs/new orders. Per MD patient may discharge home tomorrow. Original Note: I spoke w/ this patient regarding plans once medically stable for discharge. PT/OT evaluated patient and recommended SNF level of care. Patient recently discharged from [facility] for a skilled stay. Patient stated that he prefers to return home, daughters to care for patient at home and be set up w/ home health services. Patient stated that his daughter will be to visit shortly and I could speak w/ her. I will follow up w/ patient and daughter once she is at bedside. Discharge date is unknown at this time.
--- NOTE | 2024-12-09 10:18 | P.PN_ITS ---
<Statement entered by Wilber Lezama MD - 12/09/24 16:52> Rounded on patient after nurse practitioner. Personally examined and interviewed patient. Agree with exam findings and care plan as documented. Subjective *Date: 12/09/24 *Time: 10:18 Interval history: Patient is doing well this morning, sitting up in bed finishing breakfast. Patient states that he had overall a good night, denies fevers, chills, body aches, pain. Obtaind records from which showed on 11/11/2024 he had a urine culture resistant to Levaquin, patient was sent in Zyvox p.o. Discussed with patient, he states he believes he did take the medication. Will continue to treat with empiric antibiotics at this time. Awaiting urine culture, blood culture. Medical Exam Vital signs and Labs for Last 24 Hours: Vital Signs Temp Pulse Pulse Resp BP BP Pulse Ox 12/09/24 08:44 12/09/24 08:00 97 H 12/09/24 08:00 12/09/24 07:50 98.7 F 103 H 19 131/65 93 L 12/09/24 06:54 12/09/24 06:13 87 12/09/24 06:13 88 12/09/24 06:13 100 12/09/24 05:00 12/09/24 04:00 98.3 F 86 22 125/77 97 12/09/24 04:00 75 12/09/24 03:00 12/09/24 01:00 12/09/24 00:00 80 12/09/24 00:00 98.6 F 94 H 18 126/57 L 95 12/08/24 23:45 76 12/08/24 23:00 12/08/24 21:00 12/08/24 20:00 20 97 12/08/24 20:00 98.6 F 77 20 130/71 97 12/08/24 18:46 76 12/08/24 18:25 12/08/24 17:00 12/08/24 15:58 98.4 F 73 18 112/56 L 97 12/08/24 15:05 98.9 F 83 20 106/73 L 95 12/08/24 15:00 12/08/24 14:08 98.1 F 85 20 112/60 12/08/24 14:01 12/08/24 14:00 82 15 112/60 95 12/08/24 13:55 83 16 99/60 L 95 12/08/24 13:30 91 H 17 94/53 L 97 12/08/24 13:15 99 H 18 99/57 L 95 12/08/24 13:09 99 H 20 117/58 L 96 12/08/24 12:49 92 H 17 138/77 98 12/08/24 12:31 103 H 146/123 H 92 L 12/08/24 12:15 101 H 17 150/83 H 97 12/08/24 12:01 101.1 F H 104 H 24 131/59 L 93 L O2 Del Method O2 Flow Rate 12/09/24 08:44 Nasal Cannula 2 12/09/24 08:00 12/09/24 08:00 Nasal Cannula 2 12/09/24 07:50 Nasal Cannula 2 12/09/24 06:54 Nasal Cannula 2 12/09/24 06:13 12/09/24 06:13 12/09/24 06:13 Nasal Cannula 2 12/09/24 05:00 Nasal Cannula 2 12/09/24 04:00 Nasal Cannula 2 12/09/24 04:00 12/09/24 03:00 Nasal Cannula 2 12/09/24 01:00 Nasal Cannula 2 12/09/24 00:00 12/09/24 00:00 Nasal Cannula 2 12/08/24 23:45 12/08/24 23:00 Nasal Cannula 2 12/08/24 21:00 Nasal Cannula 2 12/08/24 20:00 Nasal Cannula 2 12/08/24 20:00 Nasal Cannula 2 12/08/24 18:46 12/08/24 18:25 Nasal Cannula 2 12/08/24 17:00 Nasal Cannula 2 12/08/24 15:58 Nasal Cannula 2 12/08/24 15:05 Nasal Cannula 2 12/08/24 15:00 Nasal Cannula 2 12/08/24 14:08 Nasal Cannula 2 12/08/24 14:01 Nasal Cannula 12/08/24 14:00 12/08/24 13:55 12/08/24 13:30 12/08/24 13:15 12/08/24 13:09 12/08/24 12:49 12/08/24 12:31 12/08/24 12:15 12/08/24 12:01 Room Air Intake and Output 12/08/24 12/09/24 12/09/24 23:59 07:59 15:59 Intake Total 300 / 1190 590 / 690 100 / 690 Output Total 600 / 600 600 / 600 Balance -300 / 590 - 100 / 90 Intake: Intake, Oral Amount 200 / 440 590 / 590 Intake, Total IV Amount 100 / 750 100 / 100 Cefepime HCl 2 gm In 0.9 % 100 / 100 100 / 100 Sodium Chloride 100 ml @ 200 mls/hr IV Q12H [facility] Rx#:[id number] Output: Output, Urine Amount 600 / 600 600 / 600 Other: Number of Unmeasured Voids 0 Weight 99.11 kg Patient Weight 12/09/24 23:59 Weight 99.11 kg Laboratory Results - last 24 hr 12/08/24 12:06: SARS-CoV-2 (PCR) Not detected, Influenza A Untype (PCR) Not detected, Influenza Type B (PCR) Not detected 12/08/24 12:25: WBC 14.0 H, RBC 3.56 L, Hgb 9.2 L, Hct 29.7 L, MCV 83.4, MCH 25.8 L, MCHC 31.0 L, RDW 16.1, Plt Count 518 H, MPV 8.9, Neut % (Auto) 79.6, Lymph % (Auto) 10.0, [place] % (Auto) 9.5 H, Eos % (Auto) 0.0 L, Baso % (Auto) 0.2, Neut # (Auto) 11.1 H, Lymph # (Auto) 1.4, [place] # (Auto) 1.3 H, Eos # (Auto) 0.0, Baso # (Auto) 0.0, Sodium 137, Potassium 4.8, Chloride 102, Carbon Dioxide 27, Anion Gap 12.8, BUN 22 H, Creatinine 1.30 H, Estimated Creat Clear 62, Estimated GFR 53 L, Est GFR ( Amer) 64, Glucose 118 H, Lactate 1.6, Calcium 9.2, Total Bilirubin 0.6, AST 34, ALT 23, Alkaline Phosphatase 96, NT-Pro-B Natriuret Pep 1070 H, Total Protein 7.4, Albumin 3.7, Globulin 3.7 H, Albumin/Globulin Ratio 1.0 L 12/08/24 12:40: Urine Color Yellow, Urine Appearance Cloudy, Urine pH 6.0, Ur Specific [place] 1.010, Urine Protein Negative, Urine Glucose (UA) Negative, Urine Ketones Negative, Urine Blood Trace-i, Urine Nitrate Negative, Urine Bilirubin Negative, Urine Urobilinogen 0.2, Ur Leukocyte Esterase 2+ A, Urine RBC Occasional, Urine WBC 50-100, Ur Squamous Epith Cells 3-5, Urine Bacteria 2+ 12/09/24 05:06: Iron 22 L, TIBC 246 L, Iron Saturation 8.18507 L, Ferritin 218, Vitamin B12 230 L 12/09/24 05:09: WBC 11.1 H, RBC 3.03 L, Hgb 7.9 L D, Hct 25.0 L, MCV 82.5, MCH 26.1 L, MCHC 31.6 L, RDW 16.1, Plt Count 475 H, MPV 9.0, Neut % (Auto) 71.3, Lymph % (Auto) 15.4, [place] % (Auto) 12.2 H, Eos % (Auto) 0.3, Baso % (Auto) 0.3, Neut # (Auto) 7.9 H, Lymph # (Auto) 1.7, [place] # (Auto) 1.4 H, Eos # (Auto) 0.0, Baso # (Auto) 0.0, Sodium 134 L, Potassium 4.1, Chloride 103, Carbon Dioxide 24, Anion Gap 11.1, BUN 19, Creatinine 1.20, Estimated Creat Clear 64, Estimated GFR 58 L, Est GFR ( Amer) 70, Glucose 95, Calcium 8.7, Magnesium 1.8, Total Bilirubin 0.4, AST 28, ALT 19, Alkaline Phosphatase 81, Total Protein 6.3, Albumin 3.1 L D, Globulin 3.2, Albumin/Globulin Ratio 1.0 L I & O for Labs for Last 24 Hours: Intake & Output 12/06/24 12/07/24 12/08/24 12/09/24 23:59 23:59 23:59 23:59 Intake Total 950 / 1190 690 / 690 Output Total 600 / 600 600 / 600 Balance 350 / 590 90 / 90 Weight 98.928 kg 99.11 kg Constitutional: Present no acute distress and cooperative Head: Present atraumatic Eyes: Present as per HPI ENT: Present normal exam Neck: Present normal inspection and full ROM; Absent lymphadenopathy Respiratory: Present CTA bilaterally, normal respiratory effort, able to speak in complete sentences and symmetric chest movement; Absent wheezes or crackles Cardiac: Present Reg Rate and Rhythm and Audible Murmur GI: Present soft and normal bowel sounds; Absent distention or tenderness Rectal (male): Present deferred (male): Present deferred Extremities: Present normal inspection, full ROM, normal capillary refill and edema (Bilateral feet 1+); Absent tenderness Skin: Present intact and dry; Absent erythema or rash Neuro: Present alert, awake, oriented x 3 and moves all extremities Assessment and Plan *Assessment and plan (1) Sepsis: Status: Acute Category: Medical Code(s): A41.9 - Sepsis, unspecified organism (2) Acute UTI: Status: Acute Category: Medical Code(s): N39.0 - Urinary tract infection, site not specified (3) Pneumonia: Status: Acute Category: Medical Code(s): J18.9 - Pneumonia, unspecified organism (4) SOB (shortness of breath) on exertion: Status: Acute Category: Medical Code(s): R06.02 - Shortness of breath (5) Edema: Status: Acute Qualifiers: Edema type: localized Qualified Code(s): R60.0 - Localized edema Category: Medical Code(s): R60.9 - Edema, unspecified (6) Weakness: Status: Acute Category: Medical Code(s): R53.1 - Weakness (7) Bladder mass: Status: Acute Category: Medical Code(s): N32.89 - Other specified disorders of bladder (8) Iron deficiency anemia: Status: Acute Category: Medical Code(s): D50.9 - Iron deficiency anemia, unspecified Plan Mr. Lundy is an 84-year-old male who presented to the emergency department with bodyaches, chills, fever x 3 days. He has a primary medical history of COPD with 2 L nasal cannula use as needed, hyperlipidemia, CAD, hypertension, HFpEF, BPH with TURP. Patient was recently admitted to [facility] after a TURP procedure and bladder cyst extraction. He was discharged home and subsequently ended up admitted to our facility with urinary tract infection, he was treated with 10 days of Levaquin and discharged to [facility] for rehabilitation. He has been back home for approximately 2 weeks and developed body aches, chills, fever over the last few days. Emergency department workup revealed leukocytosis of 14.0, UTI with 2+ leuk esterase WBC 50 to 100, elevated BNP at 1070 (appears to be above patient baseline), elevated creatinine at 1.3 (patient baseline). Patient was also febrile at 101.7. Patient was given azithromycin and Rocephin IV, IV Tylenol in the emergency department. ED physician consulted hospital medicine for admission due to UTI, sepsis, pneumonia. I agreed to accept the patient, plan of care is as follows: #Sepsis #Acute UTI #Pneumonia ? Patient endorses fever, chills, body aches for approximately 3 days. Does deny painful urination, productive cough, nausea, vomiting, diarrhea. Patient received azithromycin 500 mg and Rocephin 1 g in the emergency department, will transition to azithromycin 500 mg IV every 24 hours and cefepime 2 g every 12 hours for pneumonia and UTI coverage. Will also initiate vancomycin dosed per pharmacy. ? Patient currently normotensive, nontachycardic, afebrile. Patient wearing baseline 2 L nasal cannula O2 saturation 95%. Continuous cardiac telemetry and pulse oximetry ordered. ? Postvoid residual less than 30 ml, strict I's and O's. Patient does endorse urinating frequently, patient currently takes Lasix 40 mg daily. ? Leukocytosis of 14.0 on admission, 11.1 today. Blood culture showed no growth after 24 hours, urine culture and sputum culture currently pending. ? Patient states he recently (October 2024) had TURP and bladder cyst removed at , records state he had a follow-up ointment on 11/11/2024 for which he tested positive for UTI, culture resistant to Levaquin. Patient was given Zyvox twice daily x 7 days. Discussed this with patient, he states he believes he did take that medication. ? Sepsis bolus held on admission due to HFpEF and volume overload, continuing Lasix 40 mg daily at this time. ? Patient's abdomen/pelvis CT showed bladder mass in October 2024, patient does follow with Dr. Chavez at [facility] urology. ? CBC, CMP, magnesium ordered for the a.m. #Weakness #Shortness of breath ? Patient's lungs CTA, denies shortness of breath today. Stable on 2 L nasal cannula at this time, 95%. ? PT/OT consulted for further evaluation of patient's generalized weakness, recommendation for SNF at discharge. Patient and daughter state that they would like him to come home, he has 24/ assistance. Patient states he is at baseline shortness of breath, pursed lips breathing. ? DuoNebs every 6 hours scheduled. Trelegy inhaler continue daily. #Iron deficient anemia ?CBC this morning reveals anemia, iron studies show low iron and iron saturation. May be related to recent Zyvox prescription, will continue to monitor. 1 time dose of Venofer IV given. Full code VTE?IPC's PT/OT consult?ambulate as tolerated Cardiac diet
[2024-12-09] MEDS: IRON SUCROSE COMPLEX 200 MG in 0.9 % SODIUM CHLORIDE 100 ML 220 MG IV (11:03)
--- NOTE | 2024-12-09 11:05 | HMH.OTEV ---
OT Inpatient Evaluation Rehab OT IP Evaluation Start: 12/08/24 13:57 Freq: ONCE Status: Active Protocol: Document 12/09/24 10:52 [facility] (Rec: 12/09/24 11:05 [facility] [id number]) Rehab OT IP Assessment Subjective History Pt oriented x 3 on arrival. Pt agreeable to engage in therapy evaluation. Pt admitted on 12/08/24 due to UTI and sepsis. History and physical: Mr. Lundy is an 84-year-old male who presented to the emergency department today with bodyaches, chills, fever x 3 days. He has a primary medical history of COPD with 2 L nasal cannula use as needed, hyperlipidemia, CAD, hypertension, HFpEF, BPH with TURP . Patient was recently admitted to [facility] after a TURP procedure and bladder cyst extraction. He was discharged home and subsequently ended up admitted to our facility with urinary tract infection, he was treated with 10 days of Levaquin and discharged to [facility] for rehabilitation. He has been back home for approximately 2 weeks and developed body aches, chills, fever over the last few days. Emergency department workup revealed leukocytosis of 14.0, UTI with 2+ leuk esterase WBC 50 to 100, elevated BNP at 1070 (appears to be above patient baseline), elevated creatinine at 1 .3 (patient baseline). Patient was also febrile at 101 .7 Subjective Prior to being in the hospital, pt lived at home alone. He does have 3 daughters that check on him daily. Pt claims he is normally independent with all ADLs. His daughters complete all IADLs. Pt does use oxygen as needed at home. Pt uses a rolling walker during functional transfers and is usually able to transfer short distances independently. Objective Patient Orientation Person,Place,Birthday Right Upper Min Limitation <25% Extremity Gross ROM Left Upper Extremity Min Limitation <25% Gross ROM Shoulder ROM Muscle Weakness Limitations Elbow ROM Muscle Weakness Limitations Wrist Limitations of Muscle Weakness Range of Motion Bed Mobility bed mobility-scooting,bed mobility - supine/sit Assist Level Minimal x 1 (25% assist) Transfer Training Sit/Stand Transfer Assist Level Minimal x 2 (25% assist) Lower Body Dressing Moderate Assistance Ability Rehab OT IP prob,goals,plan Problems Date of Evaluation: 12/09/24 OT IP Problems Bed Mobility,Transfers,Balance,Self care,Safety Rehab Potential Rehab Potential Good Equipment Needs Assistive Devices Rolling / Wheeled Walker Plan OT intervention Plan Bed Mobility,Transfers,Balance,Safety,Therapeutic Exercise OT Plan Frequency Daily Duration LOS Discharge Goals Bed Mobility Ability Standby Assistance Sit to Stand Chair Contact Guard/Hand Hold Transfer Ability Chair Transfer Contact Guard/Hand Hold Ability Chair Transfer Sit to/from Ambulatory Technique Chair Transfer Rolling Walker Assistive Devices Lower Body Dressing Minimal Assistance Ability Upper Body Dressing Standby Assistance Ability Performing Toilet Minimal Assistance Hygiene Ability Overall Commode/ Minimal Assistance Toilet Transfer Ability Commode/Toilet Sit to/from Ambulatory Transfer Technique Discharge Plan OT Discharge Plan Pt will continue to be seen for OT services while at [facility]. At this time, therapist does recommend short term rehab at SNF following discharge. Continued skilled therapy is important in order for patient to improve strength, safety, endurance, ADL independence, and functional transfers to reach PLOF. Eval Complexity Eval Charge Codes 84716 - Moderate Complexity PHYSICIAN CERTIFICATION: I certify the specified therapy services for Celestino Clos are required, authorized, and reviewed every 30 days.
[2024-12-09] MEDS: SODIUM CHLORIDE 3% 15ML NEB 3 ML IH (11:06)
--- NOTE | 2024-12-09 11:28 | HMH.PTEV ---
Physical Therapy Evaluation Rehab PT IP Evaluation Start: 12/08/24 13:57 Freq: ONCE Status: Active Protocol: Document 12/09/24 11:16 [facility] (Rec: 12/09/24 11:27 [facility] [id number]) Subjective/History History History Per H&P: Mr. Lundy is an 84-year-old male who presented to the emergency department today with bodyaches, chills, fever x 3 days. He has a primary medical history of COPD with 2 L nasal cannula use as needed, hyperlipidemia, CAD, hypertension, HFpEF, BPH with TURP . Patient was recently admitted to [facility] after a TURP procedure and bladder cyst extraction. He was discharged home and subsequently ended up admitted to our facility with urinary tract infection, he was treated with 10 days of Levaquin and discharged to [facility] for rehabilitation. He has been back home for approximately 2 weeks and developed body aches, chills, fever over the last few days. Emergency department workup revealed leukocytosis of 14.0, UTI with 2+ leuk esterase WBC 50 to 100, elevated BNP at 1070 (appears to be above patient baseline), elevated creatinine at 1 .3 (patient baseline). Patient was also febrile at 101 .7. Subjective Subjective Pt reports he lives alone in a single-story home with 1 ELIO. Pt has 3 daughters who check in on him daily. Pt normally IND with all mobility using a RW. Pt has only been ambulating short household distances. [facility] How much help from another person do you currently need... Turning from your A little back to your side while in a flat bed without using bedrails? Moving from lying on A little back to sitting on the side of a flat bed without using bedrails? Moving to and from a A little bed to a chair ( including a wheelchair)? Standing up from a A lot chair using your arms? (e.g., wheelchair, bedside chair) Walking in hospital A lot room? Climbing 3-5 steps A lot with a railing? Mobility Score 15 Mobility Level [place] Mobility 4 Move to chair/commode Mobility Calculator Rehab PT IP Eval Objective Appearance Patient Behavior Appropriate,Cooperative Patient Orientation Person,Place Difficulty following none instructions Speech Pattern Clear Ambulation Patient Able to No Ambulate Balance Ability to Arise Able, uses arms to help Sitting Balance Steady, safe Standing Balance Unsteady Dynamic Sitting Good Balance Ability Dynamic Standing Fair Balance Ability Transfers Bed Transfer Ability Minimal x 1 (25% assist) Sit to Stand Bed Minimal x 1 (25% assist) Transfer Ability Rehab PT IP prob,goals,plan Problems Date of Evaluation: 12/09/24 PT IP Problems Bed Mobility,Transfers,Gait,Balance,Self care,Safety Rehab Potential Rehab Potential Good Plan PT Intervention Plan Bed Mobility,Transfers,Gait,Balance,Self care,Safety, Therapeutic Exercise Other Intervention 1-2 times Plan PT Plan Frequency Daily Duration LOS Discharge Goals Bed Transfer Ability Independent Sit to Stand Chair Contact Guard/Hand Hold Transfer Ability Ambulation Assistive Rolling Walker Device Ambulation Distance 10 (feet) Discharge Plan PT Discharge Plan Initial physical therapy evaluation performed. Patient presents below baseline at this time in functional mobility, transfers, and strength. Pt not safe to return home at this time d/t current level of functional mobility. PT recommending inpatient rehabilitation facility (IRF) placement upon d/c from [facility]. Pt would benefit from skilled PT while at [facility] to prevent further functional decline and maximize safety with mobility. Eval Complexity Eval Charge Codes 37594 - Moderate Complexity PHYSICIAN CERTIFICATION: I certify the specified therapy services for Celestino Lundy are required, authorized, and reviewed every 30 days.
[2024-12-09] MEDS: AZITHROMYCIN 500 MG in 0.9 % SODIUM CHLORIDE 250 ML 250 MG IV (13:16)
--- NOTE | 2024-12-09 13:35 | HMH.PHAINT1 ---
Pharmacy Intervention Comments: MEDICATION RECONCILIATION COMPLETED ON PATIENT USING EXTERNAL FILL HISTORY FROM PHARMACY AND LIST FROM CARDIOLOGY OFFICE. -YURY FALK, KHRISD
--- NOTE | 2024-12-09 17:34 | PC.NURSE ---
Addendum entered by Kaycee Smith RN 12/09/24 18:35: ice pack applied to right finger Original Note: patient complained of right pinky finger pain and swelling, upon assessment the finger appeared to be swollen and red, patient had limited movement to finger when asked to wiggle it and complained of pain when touching the finger. notified.
--- NOTE | 2024-12-09 18:16 | PC.NURSE ---
pt resting in bed, 02@2L NC, right hand pain doc aware, call light in reach
[2024-12-09] MEDS: KETOROLAC 30MG/ML VIAL 30 MG IV (20:18)
[2024-12-09] MEDS: PAT OWN MED ***ATORVASTATIN 20MG 20 MG PO (20:18)
[2024-12-10] VITALS (13 sets, daily range): BP systolic 113–147; BP diastolic 58–70; PULSE 65–100; RESP 16–22; TEMP 36.6–37.3; O2SAT 94–97; BMI 31.3
--- NOTE | 2024-12-10 03:38 | PC.NURSE ---
Pt A&OX4. He has remained on 2L nasal cannula throughout the night. He has receive Iv abx. Purewick has remained in place. He did complain of pain in his right pinky finger and was medicated per MAR. No complaints at this time, call light within reach.
[2024-12-10 06:17] LABS: Hematocrit 26.1 % (42.0-52.0); Hemoglobin 7.9 g/dL (14.1-18.0); Immature Granulocytes % 0.9 %; Mean Corpuscular HGB Conc 30.3 g/dL (31.8-35.4); Mean Corpuscular Hemoglobin 25.2 pg (27.0-31.2); Mean Corpuscular Volume 83.1 fl (80-94); Nucleated Red Blood Cells % 0 %; Platelet Count 476 K/mm3 (142-424); Red Blood Count 3.14 M/mm3 (4.60-6.20); Red Cell Distribution Width-SD 50.0 fL; White Blood Count 10.4 K/mm3 (4.8-10.8)
[2024-12-10] MEDS: IPRATROPIUM/ALBUTEROL 3 ML NEB IH ×4 (06:18→23:02)
[2024-12-10 06:31] LABS: Alanine Aminotransferase 31 U/L (12-78); Albumin Level 3.1 g/dl (3.5-5.0); Albumin/Globulin Ratio 0.9 (1.1-1.8); Alkaline Phosphatase 84 U/L (38-126); Anion Gap 12.9 mEq/L (5-15); Aspartate Amino Transferase 40 U/L (17-59); Bilirubin,Total 0.2 mg/dl (0.2-1.3); Blood Urea Nitrogen 21 mg/dl (9-20); Calcium 8.8 mg/dl (8.4-10.2); Carbon Dioxide 26 mmol/L (22.0-30.0); Chloride 102 mmol/L (98-107); Creatinine Clearance Estimated 64 mL/min (50-200); Creatinine,Serum 1.20 mg/dl (0.66-1.25); Estimated Glomerular Filt Rate 58 ml/min (>60); GFR (African American) 70 ML/MIN (>60); Globulin 3.3 g/dL (1.3-3.2); Glucose 112 mg/dl (74-100); Potassium 3.9 mmoL/L (3.5-5.1); Sodium 137 mmol/L (136-145); Total Protein,Serum 6.4 g/dl (6.3-8.2)
[2024-12-10] MEDS: FUROSEMIDE 40 MG TABLET PO (08:29)
[2024-12-10] MEDS: EZETIMIBE 10MG TABLET 10 MG PO (08:30)
[2024-12-10] MEDS: DUTASTERIDE PO (08:30)
[2024-12-10] MEDS: TAMSULOSIN PO (08:30)
[2024-12-10] MEDS: VILANTEROL IH (09:14)
[2024-12-10] MEDS: FLUTICASONE FUROATE IH (09:14)
[2024-12-10] MEDS: UMECLIDINIUM IH (09:14)
[2024-12-10] MEDS: CEFEPIME HCL 2 GM in 0.9 % SODIUM CHLORIDE 100 ML IV ×2 (09:34→21:07)
--- NOTE | 2024-12-10 11:09 | P.PN_ITS ---
<Statement entered by Wilber Lezama MD - 12/10/24 14:36> Rounded on patient after nurse practitioner. Personally examined and interviewed patient. Agree with exam findings and care plan as documented. Subjective *Date: 12/10/24 *Time: 11:09 Interval history: Patient doing very well this morning, up to chair, daughter at bedside. States he feels much better after IV antibiotics. Urine culture results pending, urine culture results from [facility] on 11/11/2024 show E. Faecalis resistant to gentamicin, Levaquin, tetracycline. Discussed with patient and family awaiting urine culture results from current visit. They are agreeable. Will continue with IV antibiotics at this time. Medical Exam Vital signs and Labs for Last 24 Hours: Vital Signs Temp Pulse Pulse Resp BP Pulse Ox O2 Del Method 12/10/24 10:48 Nasal Cannula 12/10/24 09:00 Nasal Cannula 12/10/24 08:00 90 12/10/24 07:56 Nasal Cannula 12/10/24 07:47 97.8 F 92 H 22 143/65 H 96 Nasal Cannula 12/10/24 06:38 Nasal Cannula 12/10/24 06:20 97 Nasal Cannula 12/10/24 06:18 70 12/10/24 06:18 76 12/10/24 05:00 Nasal Cannula 12/10/24 04:00 98.3 F 81 16 124/67 97 Nasal Cannula 12/10/24 04:00 65 12/10/24 03:00 Nasal Cannula 12/10/24 01:00 Nasal Cannula 12/10/24 00:00 70 12/10/24 00:00 98.5 F 85 16 113/64 97 Nasal Cannula 12/09/24 23:18 82 12/09/24 23:00 86 12/09/24 23:00 Nasal Cannula 12/09/24 21:00 Nasal Cannula 12/09/24 20:00 90 12/09/24 20:00 Nasal Cannula 12/09/24 20:00 98.0 F 94 H 16 125/80 93 L Nasal Cannula 12/09/24 19:07 Nasal Cannula 12/09/24 19:07 89 12/09/24 19:06 85 12/09/24 18:19 Nasal Cannula 12/09/24 17:00 Room Air 12/09/24 16:00 100 H 12/09/24 16:00 98.1 F 85 22 117/78 94 L Nasal Cannula 12/09/24 15:00 Nasal Cannula 12/09/24 13:00 Nasal Cannula 12/09/24 12:00 94 H 12/09/24 12:00 98.7 F 96 H 21 137/70 95 Nasal Cannula 12/09/24 11:10 87 10 L 12/09/24 11:10 88 12/09/24 11:10 87 O2 Flow Rate 12/10/24 10:48 2 12/10/24 09:00 2 12/10/24 08:00 12/10/24 07:56 2 12/10/24 07:47 1.5 12/10/24 06:38 2 12/10/24 06:20 2 12/10/24 06:18 12/10/24 06:18 12/10/24 05:00 2 12/10/24 04:00 3 12/10/24 04:00 12/10/24 03:00 2 12/10/24 01:00 2 12/10/24 00:00 12/10/24 00:00 3 12/09/24 23:18 12/09/24 23:00 12/09/24 23:00 2 12/09/24 21:00 2 12/09/24 20:00 12/09/24 20:00 2 12/09/24 20:00 3 12/09/24 19:07 2 12/09/24 19:07 12/09/24 19:06 12/09/24 18:19 2 12/09/24 17:00 2 12/09/24 16:00 12/09/24 16:00 2 12/09/24 15:00 2 12/09/24 13:00 2 12/09/24 12:00 12/09/24 12:00 1.5 12/09/24 11:10 12/09/24 11:10 12/09/24 11:10 Intake and Output 12/09/24 12/10/24 12/10/24 23:59 07:59 15:59 Intake Total 520 / 2190 510 / 610 100 / 610 Output Total 800 / 2300 400 / 400 Balance -280 / -110 110 / 210 100 / 210 Intake: Intake, Oral Amount 420 / 1280 510 / 510 Intake, Total IV Amount 100 / 910 100 / 100 Cefepime HCl 2 gm In 0.9 % 100 / 200 100 / 100 Sodium Chloride 100 ml @ 200 mls/hr IV Q12H [facility] Rx#:[id number] Output: Output, Urine Amount 800 / 2300 400 / 400 Other: Number of Unmeasured Voids 0 Weight 99.337 kg Patient Weight 12/10/24 23:59 Weight 99.337 kg Laboratory Results - last 24 hr 12/10/24 05:42: WBC 10.4, RBC 3.14 L, Hgb 7.9 L, Hct 26.1 L, MCV 83.1, MCH 25.2 L, MCHC 30.3 L, RDW 16.4, Plt Count 476 H, MPV 9.2, Neut % (Auto) 73.4, Lymph % (Auto) 11.8, [place] % (Auto) 12.6 H, Eos % (Auto) 1.1, Baso % (Auto) 0.2, Neut # (Auto) 7.6, Lymph # (Auto) 1.2, [place] # (Auto) 1.3 H, Eos # (Auto) 0.1, Baso # (Auto) 0.0, Sodium 137, Potassium 3.9, Chloride 102, Carbon Dioxide 26, Anion Gap 12.9, BUN 21 H, Creatinine 1.20, Estimated Creat Clear 64, Estimated GFR 58 L, Est GFR ( Amer) 70, Glucose 112 H, Calcium 8.8, Total Bilirubin 0.2, AST 40 D, ALT 31 D, Alkaline Phosphatase 84, Total Protein 6.4, Albumin 3.1 L, Globulin 3.3 H, Albumin/Globulin Ratio 0.9 L I & O for Labs for Last 24 Hours: Intake & Output 12/07/24 12/08/24 12/09/24 12/10/24 23:59 23:59 23:59 23:59 Intake Total 950 / 1190 2040 / 2190 610 / 610 Output Total 600 / 600 2300 / 2300 400 / 400 Balance 350 / 590 -260 / -110 210 / 210 Weight 98.928 kg 99.11 kg 99.337 kg Microbiology Reports for the Last 24 Hours: Microbiology 12/08/24 12:40 Urine,Clean Catch Urine Culture - Final Multiple organisms, suggests contamination. 12/08/24 12:40 Blood Blood Culture - Preliminary NO GROWTH AFTER 24 HOURS 12/08/24 12:25 Blood Blood Culture - Preliminary NO GROWTH AFTER 24 HOURS 12/09/24 09:17 Sputum - Expectorated Sputum Gram Stain - Final Constitutional: Present no acute distress and cooperative Head: Present atraumatic Eyes: Present as per HPI ENT: Present normal exam Neck: Present normal inspection and full ROM; Absent lymphadenopathy Respiratory: Present CTA bilaterally, normal respiratory effort, able to speak in complete sentences and symmetric chest movement; Absent wheezes or crackles Cardiac: Present Reg Rate and Rhythm and Audible Murmur GI: Present soft and normal bowel sounds; Absent distention or tenderness Rectal (male): Present deferred (male): Present deferred Extremities: Present normal inspection, full ROM, normal capillary refill and edema (Trace bilateral feet); Absent tenderness Skin: Present intact and dry; Absent erythema or rash Neuro: Present alert, awake, oriented x 3 and moves all extremities Assessment and Plan *Assessment and plan (1) Sepsis: Status: Acute Category: Medical Code(s): A41.9 - Sepsis, unspecified organism (2) Acute UTI: Status: Acute Category: Medical Code(s): N39.0 - Urinary tract infection, site not specified (3) Pneumonia: Status: Acute Category: Medical Code(s): J18.9 - Pneumonia, unspecified organism (4) SOB (shortness of breath) on exertion: Status: Acute Category: Medical Code(s): R06.02 - Shortness of breath (5) Edema: Status: Acute Qualifiers: Edema type: localized Qualified Code(s): R60.0 - Localized edema Category: Medical Code(s): R60.9 - Edema, unspecified (6) Weakness: Status: Acute Category: Medical Code(s): R53.1 - Weakness (7) Bladder mass: Status: Acute Category: Medical Code(s): N32.89 - Other specified disorders of bladder (8) Iron deficiency anemia: Status: Acute Category: Medical Code(s): D50.9 - Iron deficiency anemia, unspecified Plan Mr. Lundy is an 84-year-old male who presented to the emergency department with bodyaches, chills, fever x 3 days. He has a primary medical history of COPD with 2 L nasal cannula use as needed, hyperlipidemia, CAD, hypertension, HFpEF, BPH with TURP. Patient was recently admitted to [facility] after a TURP procedure and bladder cyst extraction in August 2024. He was discharged home and subsequently ended up admitted to our facility with urinary tract infection, he was treated with 10 days of Levaquin and discharged to [facility] for rehabilitation. He has been back home for approximately 2 weeks and developed body aches, chills, fever over the last few days. Emergency department workup revealed leukocytosis of 14.0, UTI with 2+ leuk esterase WBC 50 to 100, elevated BNP at 1070 (appears to be above patient baseline), elevated creatinine at 1.3 (patient baseline). Patient was also febrile at 101.7. Patient was given azithromycin and Rocephin IV, IV Tylenol in the emergency department. ED physician consulted hospital medicine for admission due to UTI, sepsis, pneumonia. I agreed to accept the patient, plan of care is as follows: #Sepsis #Acute UTI #Pneumonia ? Patient endorses fever, chills, body aches for approximately 3 days prior to admission. Does deny painful urination, productive cough, nausea, vomiting, diarrhea. Patient received azithromycin 500 mg and Rocephin 1 g in the emergency department, transitioned to azithromycin 500 mg IV every 24 hours and cefepime 2 g every 12 hours for pneumonia and UTI coverage. Will also initiate vancomycin dosed per pharmacy. Continuing IV antibiotics. ? Patient continues to be normotensive, nontachycardic, afebrile. Patient wearing baseline 2 L nasal cannula O2 saturation 95%. Continuous cardiac telemetry and pulse oximetry ordered. ? Postvoid residual less than 30 ml, strict I's and O's. Patient does endorse urinating frequently, patient currently takes Lasix 40 mg daily. ? Leukocytosis of 14.0 on admission, 10.4 today. Blood culture showed no growth after 48 hours, urine culture and sputum culture currently pending. ? Patient states he recently (October 2024) had TURP and bladder cyst removed at , records state he had a follow-up ointment on 11/11/2024 for which he tested positive for UTI, culture resistant to Levaquin. Patient was given Zyvox twice daily x 7 days. Discussed this with patient, he states he believes he did take that medication. Discussed with patient need for possible PICC line placement with outpatient IV antibiotic infusion versus awaiting current culture results. Plans to continue to await current culture results, continue IV antibiotics inpatient, anticipate discharge tomorrow. ? Sepsis bolus held on admission due to HFpEF and volume overload, continuing Lasix 40 mg daily at this time. ? Patient's abdomen/pelvis CT showed bladder mass in October 2024, patient does follow with Dr. Chavez at [facility] urology. ? CBC, CMP, magnesium ordered for the a.m. #Weakness #Shortness of breath ? Patient's lungs CTA, denies shortness of breath, stable on 2 L. ? PT/OT consulted for further evaluation of patient's generalized weakness, recommendation for SNF at discharge. Patient and daughter state that they would like him to come home, he has 24/ assistance. Patient states he is at baseline shortness of breath, pursed lips breathing. ? DuoNebs every 6 hours scheduled. Trelegy inhaler continue daily. #Iron deficient anemia ?CBC this morning reveals anemia, iron studies show low iron and iron saturation. May be related to recent Zyvox prescription, will continue to monitor. 1 time dose of Venofer IV given. Hemoglobin stable at 7.9. Full code VTE?IPC's Ambulate as tolerated Cardiac diet
[2024-12-10] MEDS: VANCOMYCIN/WATER FOR INJ (PEG) 1.75 GM/350 ML PIGGYBACK IV (11:16)
[2024-12-10] MEDS: AZITHROMYCIN 500 MG in 0.9 % SODIUM CHLORIDE 250 ML 250 MG IV (13:12)
[2024-12-10] MEDS: ACETAMINOPHEN 325MG TAB 650 MG PO (16:44)
--- NOTE | 2024-12-10 18:15 | PC.NURSE ---
pt resting in bed, no complaints at this time, call light in reach
[2024-12-10] MEDS: PAT OWN MED ***ATORVASTATIN 20MG 20 MG PO (20:13)
[2024-12-11] VITALS (8 sets, daily range): BP systolic 124–175; BP diastolic 55–77; PULSE 82–100; RESP 16–26; TEMP 36.6–37.1; O2SAT 93–97; BMI 31.1
[2024-12-11] MEDS: IPRATROPIUM/ALBUTEROL 3 ML NEB IH ×2 (05:57→11:12)
[2024-12-11] MEDS: FLUTICASONE FUROATE IH (05:57)
[2024-12-11] MEDS: UMECLIDINIUM IH (05:57)
[2024-12-11] MEDS: VILANTEROL IH (05:57)
[2024-12-11 06:04] LABS: Hematocrit 24.4 % (42.0-52.0); Hemoglobin 7.4 g/dL (14.1-18.0); Immature Granulocytes % 0.4 %; Mean Corpuscular HGB Conc 30.3 g/dL (31.8-35.4); Mean Corpuscular Hemoglobin 25.1 pg (27.0-31.2); Mean Corpuscular Volume 82.7 fl (80-94); Nucleated Red Blood Cells % 0 %; Platelet Count 467 K/mm3 (142-424); Red Blood Count 2.95 M/mm3 (4.60-6.20); Red Cell Distribution Width-SD 49.7 fL; White Blood Count 11.1 K/mm3 (4.8-10.8)
[2024-12-11 06:24] LABS: Alanine Aminotransferase 34 U/L (12-78); Albumin Level 3.0 g/dl (3.5-5.0); Albumin/Globulin Ratio 0.9 (1.1-1.8); Alkaline Phosphatase 89 U/L (38-126); Anion Gap 12.1 mEq/L (5-15); Aspartate Amino Transferase 42 U/L (17-59); Blood Urea Nitrogen 19 mg/dl (9-20); Calcium 8.6 mg/dl (8.4-10.2); Carbon Dioxide 25 mmol/L (22.0-30.0); Chloride 102 mmol/L (98-107); Creatinine Clearance Estimated 70 mL/min (50-200); Creatinine,Serum 1.10 mg/dl (0.66-1.25); Estimated Glomerular Filt Rate 64 ml/min (>60); GFR (African American) 77 ML/MIN (>60); Globulin 3.3 g/dL (1.3-3.2); Glucose 100 mg/dl (74-100); Potassium 4.1 mmoL/L (3.5-5.1); Sodium 135 mmol/L (136-145); Total Protein,Serum 6.3 g/dl (6.3-8.2)
[2024-12-11 06:33] LABS: Bilirubin,Total 0.1 mg/dl (0.2-1.3)
[2024-12-11] MEDS: EZETIMIBE 10MG TABLET 10 MG PO (08:08)
[2024-12-11] MEDS: TAMSULOSIN PO (08:08)
[2024-12-11] MEDS: FUROSEMIDE 40 MG TABLET PO (08:08)
[2024-12-11] MEDS: DUTASTERIDE PO (08:08)
--- NOTE | 2024-12-11 08:40 | P.PN_ITS ---
Subjective *Date: 12/11/24 *Time: 08:40 Medical Exam Vital signs and Labs for Last 24 Hours: Vital Signs Temp Pulse Pulse Resp BP Pulse Ox O2 Del Method 12/11/24 08:00 94 H 12/11/24 08:00 Nasal Cannula 12/11/24 06:42 Nasal Cannula 12/11/24 05:58 87 12/11/24 05:58 87 12/11/24 05:58 95 Nasal Cannula 12/11/24 05:00 Nasal Cannula 12/11/24 04:00 90 12/11/24 04:00 97.8 F 95 H 26 H 124/55 L 93 L 12/11/24 03:00 Nasal Cannula 12/11/24 01:00 Nasal Cannula 12/11/24 00:00 90 12/11/24 00:00 98.8 F 100 H 18 127/65 94 L Nasal Cannula 12/10/24 23:02 77 12/10/24 23:02 84 12/10/24 23:02 97 Nasal Cannula 12/10/24 23:00 Nasal Cannula 12/10/24 21:00 Nasal Cannula 12/10/24 20:00 80 12/10/24 20:00 98.0 F 88 18 128/70 95 Nasal Cannula 12/10/24 19:48 12/10/24 18:43 87 12/10/24 18:43 86 12/10/24 18:43 96 Nasal Cannula 12/10/24 18:12 Nasal Cannula 12/10/24 17:00 Nasal Cannula 12/10/24 16:00 80 12/10/24 16:00 99.2 F 91 H 16 128/58 L 96 Nasal Cannula 12/10/24 15:00 Nasal Cannula 12/10/24 13:00 Nasal Cannula 12/10/24 12:47 94 H 12/10/24 12:47 93 H 12/10/24 12:00 100 H 12/10/24 11:50 98.7 F 86 18 147/65 H 94 L Nasal Cannula 12/10/24 10:48 Nasal Cannula 12/10/24 09:00 Nasal Cannula O2 Flow Rate 12/11/24 08:00 12/11/24 08:00 1 12/11/24 06:42 1 12/11/24 05:58 12/11/24 05:58 12/11/24 05:58 1.5 12/11/24 05:00 1.5 12/11/24 04:00 12/11/24 04:00 12/11/24 03:00 1.5 12/11/24 01:00 1.5 12/11/24 00:00 12/11/24 00:00 1.5 12/10/24 23:02 12/10/24 23:02 12/10/24 23:02 2 12/10/24 23:00 1.5 12/10/24 21:00 1.5 12/10/24 20:00 12/10/24 20:00 1.5 12/10/24 19:48 1.5 12/10/24 18:43 12/10/24 18:43 12/10/24 18:43 1.5 12/10/24 18:12 2 12/10/24 17:00 2 12/10/24 16:00 12/10/24 16:00 1.5 12/10/24 15:00 2 12/10/24 13:00 2 12/10/24 12:47 12/10/24 12:47 12/10/24 12:00 12/10/24 11:50 1.5 12/10/24 10:48 2 12/10/24 09:00 2 Intake and Output 12/10/24 12/11/24 12/11/24 23:59 07:59 15:59 Intake Total 420 / 1630 480 / 480 Output Total 900 / 1850 500 / 500 Balance -480 / -220 -500 / -20 480 / -20 Intake: Intake, Oral Amount 320 / 830 480 / 480 Intake, Total IV Amount 100 / 800 Cefepime HCl 2 gm In 0.9 % 100 / 200 Sodium Chloride 100 ml @ 200 mls/hr IV Q12H [facility] Rx#:[id number] Output: Output, Urine Amount 900 / 1850 500 / 500 Other: Number of Unmeasured Voids 0 0 Weight 98.838 kg Patient Weight 12/11/24 23:59 Weight 98.838 kg Laboratory Results - last 24 hr 12/11/24 05:40: WBC 11.1 H, RBC 2.95 L, Hgb 7.4 L, Hct 24.4 L, MCV 82.7, MCH 25.1 L, MCHC 30.3 L, RDW 16.4, Plt Count 467 H, MPV 9.1, Neut % (Auto) 76.5, Lymph % (Auto) 12.1, [place] % (Auto) 10.0 H, Eos % (Auto) 0.8, Baso % (Auto) 0.2, Neut # (Auto) 8.5 H, Lymph # (Auto) 1.4, [place] # (Auto) 1.1 H, Eos # (Auto) 0.1, Baso # (Auto) 0.0, Sodium 135 L, Potassium 4.1, Chloride 102, Carbon Dioxide 25, Anion Gap 12.1, BUN 19, Creatinine 1.10, Estimated Creat Clear 70, Estimated GFR 64, Est GFR ( Amer) 77, Glucose 100, Calcium 8.6, Total Bilirubin 0.1 L, AST 42, ALT 34, Alkaline Phosphatase 89, Total Protein 6.3, Albumin 3.0 L, Globulin 3.3 H, Albumin/Globulin Ratio 0.9 L I & O for Labs for Last 24 Hours: Intake & Output 12/08/24 12/09/24 12/10/24 12/11/24 23:59 23:59 23:59 23:59 Intake Total 950 / 1190 2040 / 2190 1630 / 1630 480 / 480 Output Total 600 / 600 2300 / 2300 1550 / 1850 500 / 500 Balance 350 / 590 -260 / -110 80 / -220 -20 / -20 Weight 98.928 kg 99.11 kg 99.337 kg 98.838 kg Microbiology Reports for the Last 24 Hours: Microbiology 12/08/24 12:40 Blood Blood Culture - Preliminary NO GROWTH AFTER 48 HOURS 12/08/24 12:25 Blood Blood Culture - Preliminary NO GROWTH AFTER 48 HOURS 12/08/24 12:40 Urine,Clean Catch Urine Culture - Preliminary The patient's infection will respond to the chosen ABx?: Yes Is the patient receiving the right drug, dose, and route?: Yes Could a more targeted ABx be ordered?: No (CULTURES PENDING, CONTINUE WITH CURRENT ABX.)
[2024-12-11] MEDS: AZITHROMYCIN 250MG TABLET 500 MG PO (09:11)
[2024-12-11 10:34] LABS: Vancomycin,Trough 8.0 ug/mL (5.0-10.0)
[2024-12-11] MEDS: CEFEPIME HCL 2 GM in 0.9 % SODIUM CHLORIDE 100 ML IV ×2 (10:39→21:09)
[2024-12-11] MEDS: POLYETHYLENE GLYCOL 3350 17 GM PACKET PO (10:39)
[2024-12-11] MEDS: DOCUSATE SODIUM 100 MG CAPSULE PO (10:39)
[2024-12-11] MEDS: IRON SUCROSE COMPLEX 300 MG in 0.9 % SODIUM CHLORIDE 250 ML 143.33 MG IV (11:26)
[2024-12-11] MEDS: LISINOPRIL 20MG TABLET 40 MG PO (13:25)
[2024-12-11] MEDS: VANCOMYCIN/WATER FOR INJ (PEG) 1.75 GM/350 ML PIGGYBACK IV (13:25)
--- NOTE | 2024-12-11 14:34 | P.PN_ITS ---
<Statement entered by Wilber Lezama MD - 12/11/24 14:55> Rounded on patient after nurse practitioner. Personally examined and interviewed patient. Agree with exam findings and care plan as documented. Subjective *Date: 12/11/24 *Time: 14:46 Interval history: Patient continues to do well, sitting up in chair, daughter at bedside. Discussed with patient the need for urine culture sensitivity for discharge. Urine culture shows >100,000 gram-positive cocci and >50,000 gram-positive cocci 2. Patient has previously been treated outpatient with Levaquin and Zyvox. Currently receiving cefepime, azithromycin, and vancomycin. Will continue plan of care at this time. Medical Exam Vital signs and Labs for Last 24 Hours: Vital Signs Temp Pulse Pulse Resp BP Pulse Ox O2 Del Method 12/11/24 13:00 Nasal Cannula 12/11/24 12:00 90 12/11/24 12:00 98.1 F 95 H 20 175/77 H 94 L Nasal Cannula 12/11/24 11:13 82 12/11/24 11:13 85 12/11/24 11:13 97 Nasal Cannula 12/11/24 11:00 Nasal Cannula 12/11/24 08:56 Nasal Cannula 12/11/24 08:00 98.5 F 85 16 129/57 L 95 Nasal Cannula 12/11/24 08:00 94 H 12/11/24 08:00 Nasal Cannula 12/11/24 06:42 Nasal Cannula 12/11/24 05:58 87 12/11/24 05:58 87 12/11/24 05:58 95 Nasal Cannula 12/11/24 05:00 Nasal Cannula 12/11/24 04:00 90 12/11/24 04:00 97.8 F 95 H 26 H 124/55 L 93 L 12/11/24 03:00 Nasal Cannula 12/11/24 01:00 Nasal Cannula 12/11/24 00:00 90 12/11/24 00:00 98.8 F 100 H 18 127/65 94 L Nasal Cannula 12/10/24 23:02 77 12/10/24 23:02 84 12/10/24 23:02 97 Nasal Cannula 12/10/24 23:00 Nasal Cannula 12/10/24 21:00 Nasal Cannula 12/10/24 20:00 80 12/10/24 20:00 98.0 F 88 18 128/70 95 Nasal Cannula 12/10/24 19:48 12/10/24 18:43 87 12/10/24 18:43 86 12/10/24 18:43 96 Nasal Cannula 12/10/24 18:12 Nasal Cannula 12/10/24 17:00 Nasal Cannula 12/10/24 16:00 80 12/10/24 16:00 99.2 F 91 H 16 128/58 L 96 Nasal Cannula 12/10/24 15:00 Nasal Cannula O2 Flow Rate 12/11/24 13:00 1 12/11/24 12:00 12/11/24 12:00 1 12/11/24 11:13 12/11/24 11:13 12/11/24 11:13 1 12/11/24 11:00 1 12/11/24 08:56 1 12/11/24 08:00 1 12/11/24 08:00 12/11/24 08:00 1 12/11/24 06:42 1 12/11/24 05:58 12/11/24 05:58 12/11/24 05:58 1.5 12/11/24 05:00 1.5 12/11/24 04:00 12/11/24 04:00 12/11/24 03:00 1.5 12/11/24 01:00 1.5 12/11/24 00:00 12/11/24 00:00 1.5 12/10/24 23:02 12/10/24 23:02 12/10/24 23:02 2 12/10/24 23:00 1.5 12/10/24 21:00 1.5 12/10/24 20:00 12/10/24 20:00 1.5 12/10/24 19:48 1.5 12/10/24 18:43 12/10/24 18:43 12/10/24 18:43 1.5 12/10/24 18:12 2 12/10/24 17:00 2 12/10/24 16:00 12/10/24 16:00 1.5 12/10/24 15:00 2 Intake and Output 12/10/24 12/11/24 12/11/24 23:59 07:59 15:59 Intake Total 420 / 1630 1325 / 1325 Output Total 900 / 1850 500 / 1300 800 / 1300 Balance -480 / -220 -500 / 25 525 / 25 Intake: Intake, Oral Amount 320 / 830 960 / 960 Intake, Total IV Amount 100 / 800 365 / 365 Cefepime HCl 2 gm In 0.9 % 100 / 200 100 / 100 Sodium Chloride 100 ml @ 200 mls/hr IV Q12H [facility] Rx#:[id number] Iron Sucrose Complex 300 mg In 265 / 265 0.9 % Sodium Chloride 250 ml @ 143.333 mls/hr IV ONCE ONE Rx#: [id number] Output: Output, Urine Amount 900 / 1850 500 / 1300 800 / 1300 Other: Number of Unmeasured Voids 0 0 0 Weight 98.838 kg 98.838 kg Patient Weight 12/11/24 23:59 Weight 98.838 kg Laboratory Results - last 24 hr 12/08/24 12:40: Urine Color Yellow, Urine Appearance Cloudy, Urine pH 6.0, Ur Specific [place] 1.010, Urine Protein Negative, Urine Glucose (UA) Negative, Urine Ketones Negative, Urine Blood Trace-i, Urine Nitrate Negative, Urine Bilirubin Negative, Urine Urobilinogen 0.2, Ur Leukocyte Esterase 2+ A, Urine RBC Occasional, Urine WBC 50-100, Ur Squamous Epith Cells 3-5, Urine Bacteria 2+ 12/11/24 05:40: WBC 11.1 H, RBC 2.95 L, Hgb 7.4 L, Hct 24.4 L, MCV 82.7, MCH 25.1 L, MCHC 30.3 L, RDW 16.4, Plt Count 467 H, MPV 9.1, Neut % (Auto) 76.5, Lymph % (Auto) 12.1, [place] % (Auto) 10.0 H, Eos % (Auto) 0.8, Baso % (Auto) 0.2, Neut # (Auto) 8.5 H, Lymph # (Auto) 1.4, [place] # (Auto) 1.1 H, Eos # (Auto) 0.1, Baso # (Auto) 0.0, Sodium 135 L, Potassium 4.1, Chloride 102, Carbon Dioxide 25, Anion Gap 12.1, BUN 19, Creatinine 1.10, Estimated Creat Clear 70, Estimated GFR 64, Est GFR ( Amer) 77, Glucose 100, Calcium 8.6, Total Bilirubin 0.1 L, AST 42, ALT 34, Alkaline Phosphatase 89, Total Protein 6.3, Albumin 3.0 L, Globulin 3.3 H, Albumin/Globulin Ratio 0.9 L 12/11/24 09:55: Vancomycin Trough 8.0 I & O for Labs for Last 24 Hours: Intake & Output 12/08/24 12/09/24 12/10/24 12/11/24 23:59 23:59 23:59 23:59 Intake Total 950 / 1190 2040 / 2190 1630 / 1630 1325 / 1325 Output Total 600 / 600 2300 / 2300 1550 / 1850 1300 / 1300 Balance 350 / 590 -260 / -110 80 / -220 Weight 98.928 kg 99.11 kg 99.337 kg 98.838 kg Microbiology Reports for the Last 24 Hours: Microbiology 12/08/24 12:40 Urine,Clean Catch Urine Culture - Preliminary Gram Positive Cocci Gram Positive Cocci#2 12/09/24 09:17 Sputum - Expectorated Sputum Gram Stain - Final 12/09/24 09:17 Sputum - Expectorated Sputum Sputum Culture - Final 12/08/24 12:40 Blood Blood Culture - Preliminary NO GROWTH AFTER 48 HOURS 12/08/24 12:25 Blood Blood Culture - Preliminary NO GROWTH AFTER 48 HOURS Constitutional: Present no acute distress and cooperative Head: Present atraumatic Eyes: Present as per HPI ENT: Present normal exam Neck: Present normal inspection and full ROM; Absent lymphadenopathy Respiratory: Present CTA bilaterally, normal respiratory effort, able to speak in complete sentences and symmetric chest movement; Absent wheezes or crackles Cardiac: Present Reg Rate and Rhythm and Audible Murmur GI: Present soft and normal bowel sounds; Absent distention or tenderness Rectal (male): Present deferred (male): Present deferred Extremities: Present normal inspection, full ROM, normal capillary refill and edema (Trace bilateral feet); Absent tenderness Skin: Present intact and dry; Absent erythema or rash Neuro: Present alert, awake, oriented x 3 and moves all extremities Assessment and Plan *Assessment and plan (1) Sepsis: Status: Acute Category: Medical Code(s): A41.9 - Sepsis, unspecified organism (2) Acute UTI: Status: Acute Category: Medical Code(s): N39.0 - Urinary tract infection, site not specified (3) Pneumonia: Status: Acute Category: Medical Code(s): J18.9 - Pneumonia, unspecified organism (4) SOB (shortness of breath) on exertion: Status: Acute Category: Medical Code(s): R06.02 - Shortness of breath (5) Edema: Status: Acute Qualifiers: Edema type: localized Qualified Code(s): R60.0 - Localized edema Category: Medical Code(s): R60.9 - Edema, unspecified (6) Weakness: Status: Acute Category: Medical Code(s): R53.1 - Weakness (7) Bladder mass: Status: Acute Category: Medical Code(s): N32.89 - Other specified disorders of bladder (8) Iron deficiency anemia: Status: Acute Category: Medical Code(s): D50.9 - Iron deficiency anemia, unspecified Plan Mr. Lundy is an 84-year-old male who initially presented to the emergency department with bodyaches, chills, fever x 3 days. He has a primary medical history of COPD with 2 L nasal cannula use as needed, hyperlipidemia, CAD, hypertension, HFpEF, BPH with TURP. Patient was recently admitted to [facility] after a TURP procedure and bladder cyst extraction in August 2024. He was discharged home and subsequently ended up admitted to our facility with urinary tract infection, he was treated with 10 days of Levaquin and discharged to [facility] for rehabilitation. He has been back home for approximately 2 weeks and developed body aches, chills, fever over the last few days. Emergency department workup revealed leukocytosis of 14.0, UTI with 2+ leuk esterase WBC 50 to 100, elevated BNP at 1070 (appears to be above patient baseline), elevated creatinine at 1.3 (patient baseline). Patient was also febrile at 101.7. Patient was given azithromycin and Rocephin IV, IV Tylenol in the emergency department. ED physician consulted hospital medicine for admission due to UTI, sepsis, pneumonia. I agreed to accept the patient, plan of care is as follows: #Sepsis #Acute UTI #Pneumonia ? Patient endorses fever, chills, body aches for approximately 3 days prior to admission. Does deny painful urination, productive cough, nausea, vomiting, diarrhea. Patient received azithromycin 500 mg and Rocephin 1 g in the emergency department, transitioned to azithromycin 500 mg every 24 hours and cefepime 2 g every 12 hours for pneumonia and UTI coverage. Will also initiate vancomycin dosed per pharmacy. Continuing IV antibiotics. ? Patient continues to be normotensive, nontachycardic, afebrile. Patient wearing baseline 2 L nasal cannula O2 saturation 95%. Continuous cardiac telemetry and pulse oximetry ordered. ? Continue Lasix 40 mg IV daily, postvoid residual measured unremarkable. ? Leukocytosis of 14.0 on admission, today. Blood culture showed no growth after 48 hours, urine culture shows multiple gram-positive cocci. Waiting for speciation and sensitivities. ? Patient states he recently (October 2024) had TURP and bladder cyst removed at , records state he had a follow-up ointment on 11/11/2024 for which he tested positive for UTI, culture resistant to Levaquin. Patient was given Zyvox twice daily x 7 days. Discussed this with patient, he states he believes he did take that medication. Pending urine culture results and sensitivities, patient anticipated discharge tomorrow. Patient currently necessitating inpatient IV antibiotics at this time. ? Sepsis bolus held on admission due to HFpEF and volume overload, continuing Lasix 40 mg daily at this time. ? Patient's abdomen/pelvis CT showed bladder mass in October 2024, patient does follow with Dr. Chavez at [facility] urology. ? CBC, CMP, magnesium ordered for the a.m. #Weakness #Shortness of breath ? Patient's lungs CTA, denies shortness of breath, stable on 1 to 2 L. ? PT/OT consulted for further evaluation of patient's generalized weakness, recommendation for SNF at discharge. Patient and daughter state that they would like him to come home, he has 24/7 assistance. Patient states he is at baseline shortness of breath, pursed lips breathing. ? DuoNebs every 6 hours as needed. Trelegy inhaler continue daily. #Iron deficient anemia ?CBC this morning reveals anemia, iron studies show low iron and iron saturation. May be related to recent Zyvox prescription, will continue to monitor. One-time dose of Venofer 200 mg IV given, repeat IV Venofer 300 mg given today. Hemoglobin stable at 7.4. Full code VTE?[facility]'s Ambulate as tolerated Cardiac diet
--- NOTE | 2024-12-11 16:57 | PC.NURSE ---
pt resting supine in bed at this time with son at bedside. abx given per jun. pt tolerating 1L NC with sats >90%. purewick remains in place. awaiting urine culture results. family updated on POC. no complaints of pain. no needs at this time. call light within reach.
[2024-12-11] MEDS: PAT OWN MED ***ATORVASTATIN 20MG 20 MG PO (21:09)
[2024-12-12] VITALS: BP 143/73; PULSE 85; PULSE 90; RESP 16; TEMP 37.7; O2SAT 97
[2024-12-12] MEDS: KETOROLAC 30MG/ML VIAL 30 MG IV (02:03)
[2024-12-12 04:00] VITALS: BP 124/65; PULSE 80; PULSE 84; RESP 18; TEMP 37.1; O2SAT 96; BMI 30.9
[2024-12-12 06:03] VITALS: O2SAT 93
[2024-12-12] MEDS: FLUTICASONE FUROATE IH (06:03)
[2024-12-12] MEDS: UMECLIDINIUM IH (06:03)
[2024-12-12] MEDS: VILANTEROL IH (06:03)
[2024-12-12 06:23] LABS: Alanine Aminotransferase 40 U/L (12-78); Albumin Level 3.0 g/dl (3.5-5.0); Albumin/Globulin Ratio 0.9 (1.1-1.8); Alkaline Phosphatase 90 U/L (38-126); Anion Gap 11.1 mEq/L (5-15); Aspartate Amino Transferase 44 U/L (17-59); Bilirubin,Total 0.3 mg/dl (0.2-1.3); Blood Urea Nitrogen 18 mg/dl (9-20); Calcium 8.6 mg/dl (8.4-10.2); Carbon Dioxide 24 mmol/L (22.0-30.0); Chloride 103 mmol/L (98-107); Creatinine Clearance Estimated 69 mL/min (50-200); Creatinine,Serum 1.10 mg/dl (0.66-1.25); Estimated Glomerular Filt Rate 64 ml/min (>60); GFR (African American) 77 ML/MIN (>60); Globulin 3.2 g/dL (1.3-3.2); Glucose 97 mg/dl (74-100); Potassium 4.1 mmoL/L (3.5-5.1); Sodium 134 mmol/L (136-145); Total Protein,Serum 6.2 g/dl (6.3-8.2)
[2024-12-12 06:35] LABS: Hematocrit 25.7 % (42.0-52.0); Hemoglobin 7.8 g/dL (14.1-18.0); Immature Granulocytes % 0.9 %; Mean Corpuscular HGB Conc 30.4 g/dL (31.8-35.4); Mean Corpuscular Hemoglobin 25.2 pg (27.0-31.2); Mean Corpuscular Volume 83.2 fl (80-94); Nucleated Red Blood Cells % 0 %; Platelet Count 493 K/mm3 (142-424); Red Blood Count 3.09 M/mm3 (4.60-6.20); Red Cell Distribution Width-SD 50.0 fL; White Blood Count 11.9 K/mm3 (4.8-10.8)
--- NOTE | 2024-12-12 07:43 | PC.NURSE ---
Culture results forwarded to hospitalist.
[2024-12-12] MEDS: VANCOMYCIN/WATER FOR INJ (PEG) 1.75 GM/350 ML PIGGYBACK IV (07:45)
[2024-12-12 08:00] VITALS: BP 124/62; PULSE 78; PULSE 80; RESP 18; TEMP 36.8; O2SAT 95
[2024-12-12] MEDS: EZETIMIBE 10MG TABLET 10 MG PO (08:34)
[2024-12-12] MEDS: DOCUSATE SODIUM 100 MG CAPSULE PO (08:34)
[2024-12-12] MEDS: LISINOPRIL 20MG TABLET 40 MG PO (08:34)
[2024-12-12] MEDS: FUROSEMIDE 40 MG TABLET PO (08:34)
[2024-12-12] MEDS: AZITHROMYCIN 250MG TABLET 500 MG PO (08:34)
[2024-12-12] MEDS: TAMSULOSIN PO (08:35)
[2024-12-12] MEDS: POLYETHYLENE GLYCOL 3350 17 GM PACKET PO (08:35)
[2024-12-12] MEDS: DUTASTERIDE PO (08:35)
--- NOTE | 2024-12-12 10:36 | P.DS_ITS ---
General Admission date:: 12/08/24 Discharge date: 12/12/24 HPI HPI HPI: Mr. Lundy is an 84-year-old male who presented to the emergency department today with bodyaches, chills, fever x 3 days. He has a primary medical history of COPD with 2 L nasal cannula use as needed, hyperlipidemia, CAD, hypertension, HFpEF, BPH with TURP. Patient was recently admitted to [facility] after a TURP procedure and bladder cyst extraction. He was discharged home and subsequently ended up admitted to our facility with urinary tract infection, he was treated with 10 days of Levaquin and discharged to [facility] for rehabilitation. He has been back home for approximately 2 weeks and developed body aches, chills, fever over the last few days. Emergency department workup revealed leukocytosis of 14.0, UTI with 2+ leuk esterase WBC 50 to 100, elevated BNP at 1070 (appears to be above patient baseline), elevated creatinine at 1.3 (patient baseline). Patient was also febrile at 101.7. Hospital Course Hospital Course Hospital Course: Mr. Lundy is an 84-year-old male who initially presented to the emergency department with bodyaches, chills, fever x 3 days. He has a primary medical history of COPD with 2 L nasal [id number] use as needed, hyperlipidemia, CAD, hypertension, HFpEF, BPH with TURP. Patient was recently admitted to [facility] after a TURP procedure and bladder cyst extraction in August 2024. He was discharged home and subsequently ended up admitted to our facility with urinary tract infection, he was treated with 10 days of Levaquin and discharged to [facility] for rehabilitation. He has been back home for approximately 2 weeks and developed body aches, chills, fever over the last few days. Emergency department workup revealed leukocytosis of 14.0, UTI with 2+ leuk esterase WBC 50 to 100, elevated BNP at 1070 (appears to be above patient baseline), elevated creatinine at 1.3 (patient baseline). Patient was also febrile at 101.7. Patient was given azithromycin and Rocephin IV, IV Tylenol in the emergency department. ED physician consulted hospital medicine for admission due to UTI, sepsis, pneumonia. I agreed to accept the patient, plan of care is as follows: #Sepsis #Acute UTI #Pneumonia ? Patient endorses fever, chills, body aches for approximately 3 days prior to admission. Does deny painful urination, productive cough, nausea, vomiting, diarrhea. - Patient received 5-day course of azithromycin 500 mg and cefepime 2 g every 12 hours x 4 days. Patient also received vancomycin dosed per pharmacy during admission, will complete additional 5-day course of daptomycin IV outpatient. ? Patient normotensive, nontachycardic, afebrile during admission. Patient wearing baseline 2 L nasal cannula O2 saturation 95%, patient to be discharged, baseline 2 L O2. ? Leukocytosis of 14.0 on admission, 11.9 today. Blood culture showed no growth after 72 hours, urine culture E faecalis sensitive to daptomycin. Patient failed Levaquin and Zyvox orally outpatient prior to this admission. ? Sepsis bolus held on admission due to HFpEF and volume overload, continuing Lasix 40 mg daily. ? Patient's abdomen/pelvis CT showed bladder mass in October 2024, patient does follow with Dr. Chavez at [facility] urology. #Weakness #Shortness of breath ? Patient's lungs CTA, denies shortness of breath, stable on 1 to 2 L. ? PT/OT consulted for further evaluation of patient's generalized weakness, recommendation for SNF at discharge. Patient and daughter state that they would like him to come home, he has 30/10 assistance. Patient states he is at baseline shortness of breath, pursed lips breathing. ? Trelegy inhaler continue daily. #Iron deficient anemia ? CBC this morning reveals anemia, iron studies show low iron and iron saturation. May be related to recent Zyvox prescription, will continue to monitor. One-time dose of Venofer 200 mg IV given, repeat IV Venofer 300 mg given today. Hemoglobin stable at discharge 7.8. ? Patient discharged home on oral iron supplement and vitamin B12 supplement. Total time spent on discharge 39 minutes in counseling, documentation, chart review, and direct care with patient. Exam Data for Last 24 hours Vital signs and Labs for Last 24 Hours: Temp Pulse Resp BP Pulse Ox O2 Del Method O2 Flow Rate 97.8 F 92 H 22 143/65 H 96 Nasal Cannula 2 12/10/24 07:47 12/10/24 07:47 12/10/24 07:47 12/10/24 07:47 12/10/24 07:47 12/10/24 07:56 12/10/24 07:56 Laboratory Results - last 24 hr 12/09/24 05:06: Ferritin 218, Vitamin B12 230 L 12/10/24 05:42: WBC 10.4, RBC 3.14 L, Hgb 7.9 L, Hct 26.1 L, MCV 83.1, MCH 25.2 L, MCHC 30.3 L, RDW 16.4, Plt Count 476 H, MPV 9.2, Neut % (Auto) 73.4, Lymph % (Auto) 11.8, [place] % (Auto) 12.6 H, Eos % (Auto) 1.1, Baso % (Auto) 0.2, Neut # (Auto) 7.6, Lymph # (Auto) 1.2, [place] # (Auto) 1.3 H, Eos # (Auto) 0.1, Baso # (Auto) 0.0, Sodium 137, Potassium 3.9, Chloride 102, Carbon Dioxide 26, Anion Gap 12.9, BUN 21 H, Creatinine 1.20, Estimated Creat Clear 64, Estimated GFR 58 L, Est GFR ( Amer) 70, Glucose 112 H, Calcium 8.8, Total Bilirubin 0.2, AST 40 D, ALT 31 D, Alkaline Phosphatase 84, Total Protein 6.4, Albumin 3.1 L, Globulin 3.3 H, Albumin/Globulin Ratio 0.9 L I & O for Last 24 hours: Intake & Output 12/07/24 12/08/24 12/09/24 12/10/24 23:59 23:59 23:59 23:59 Intake Total 950 / 1190 2040 / 2190 510 / 510 Output Total 600 / 600 2300 / 2300 400 / 400 Balance 350 / 590 -260 / -110 110 / 110 Weight 98.928 kg 99.11 kg 99.337 kg Microbiology Reports for the Last 24 Hours: Microbiology 12/08/24 12:40 Blood Blood Culture - Preliminary NO GROWTH AFTER 24 HOURS 12/08/24 12:25 Blood Blood Culture - Preliminary NO GROWTH AFTER 24 HOURS 12/09/24 09:17 Sputum - Expectorated Sputum Gram Stain - Final Constitutional Constitutional: no acute distress and obese *Routine HEENT Exam Head: Present normocephalic Eye: Present EOMI and PERRL ENT: Present mucous membranes moist *Routine Neck Exam Neck: Present supple; Absent lymphadenopathy *Routine Respiratory Exam Respiratory: Present CTA bilaterally *Routine Cardiovascular Exam Cardiovascular: Present RRR *Routine Abdominal Exam Abdominal: Present soft and normoactive bowel sounds; Absent tenderness *Routine Extremities Exam Extremities: Absent cyanosis, clubbing or edema *Routine Skin Exam Skin: Present warm; Absent rash *Routine Neurological Exam Neurological: Present alert and oriented X3 Results Data Completed and Pending Labs on day of discharge: Labs from last 24 hours 12/10/24 12/09/24 05:42 05:06 WBC 10.4 RBC 3.14 L Hgb 7.9 L Hct 26.1 L MCV 83.1 MCH 25.2 L MCHC 30.3 L RDW 16.4 Plt Count 476 H MPV 9.2 Neut % (Auto) 73.4 Lymph % (Auto) 11.8 [place] % (Auto) 12.6 H Eos % (Auto) 1.1 Baso % (Auto) 0.2 Neut # (Auto) 7.6 Lymph # (Auto) 1.2 [place] # (Auto) 1.3 H Eos # (Auto) 0.1 Baso # (Auto) 0.0 Sodium 137 Potassium 3.9 Chloride 102 Carbon Dioxide 26 Anion Gap 12.9 BUN 21 H Creatinine 1.20 Estimated Creat Clear 64 Estimated GFR 58 L Est GFR ( Amer) 70 Glucose 112 H Calcium 8.8 Ferritin 218 Total Bilirubin 0.2 AST 40 D ALT 31 D Alkaline Phosphatase 84 Total Protein 6.4 Albumin 3.1 L Globulin 3.3 H Albumin/Globulin Ratio 0.9 L Vitamin B12 230 L Preliminary micro results at discharge 12/08/24 12:40 Blood Culture - Preliminary Blood NO GROWTH AFTER 24 HOURS 12/08/24 12:25 Blood Culture - Preliminary Blood NO GROWTH AFTER 24 HOURS DS: Diagnosis Discharge Diagnosis (1) Sepsis: Status: Acute Code(s): A41.9 - Sepsis, unspecified organism (2) Acute UTI: Status: Acute Code(s): N39.0 - Urinary tract infection, site not specified (3) Pneumonia: Status: Acute Code(s): J18.9 - Pneumonia, unspecified organism (4) SOB (shortness of breath) on exertion: Status: Acute Code(s): R06.02 - Shortness of breath (5) Bladder mass: Status: Acute Code(s): N32.89 - Other specified disorders of bladder (6) Iron deficiency anemia: Status: Acute Code(s): D50.9 - Iron deficiency anemia, unspecified Meds Home Medications and Allergies Home Medications ?Medication ?Instructions ?Recorded ?Confirmed ?Type albuterol sulfate 90 mcg/actuation 2 puff inhalation Q IDP PRN 11/03/24 12/16/24 Rx aerosol inhaler shortness of breath or wheez ing #8.5 grams atorvastatin 20 mg tablet 20 mg PO DAILY #90 tabs 10/0812/16/24 Rx dutasteride 0.5 mg-tamsulosin ER 1 cap PO DAILY 90 day s #90 caps 11/03/24 12/16/24 Rx 0.4 mg capsule ext.release 24hr mphas ezetimibe 10 mg tablet 10 mg PO DAILY #90 tabs 10/0812/16/24 Rx fluticasone fur. 200 mcg-umeclid 1 inh inhalation CROW Y #60 ea 11/03/24 12/16/24 Rx 62.5 mcg-vilant 25 mcg inhalat.powder (Trelegy Ellipta) benazepril 40 mg tablet 40 mg PO DAILY #90 tabs 11/0712/16/24 Rx furosemide 40 mg tablet (Lasix) 40 mg PO DAILY 90 days #90 tabs 11/20/24 12/16/24 Rx cyanocobalamin (vitamin B-12) 1,000 mcg PO DAILY #30 t abs 12/12/24 12/16/24 Rx 1,000 mcg tablet (Vitamin B-12) ferrous sulfate 325 mg (65 mg 325 mg PO DAILY #30 tabs 12/12/24 12/16/24 Rx iron) tablet (Iron (ferrous sulfate)) polyethylene glycol 3350 17 17 g PO DAILY #119 grams 0 12/12/24 12/16/24 Rx gram/dose oral powder (Miralax) New Prescriptions to Start Prescriptions: cyanocobalamin (vitamin B-12) [Vitamin B-12] Ailin Adams ferrous sulfate [Iron (ferrous sulfate)] Ailin Adams polyethylene glycol 3350 [Miralax] Ailin Adams Allergies Allergy/AdvReac Type Severity Reaction Status Date / Time Penicillins AdvReac Severe Other Verified 12/16/24 11:06 Discharge Plan Disposition Patient Disposition: Home, Self-Care Condition: Fair Follow up Plan Follow up with: Aev Darby APRN [Nurse Practitioner, Cardiology] - 12/15/24 1:00 pm Jose Luis Rios DO [Staff Physician, Family Practice] - 12/17/24 1:00 pm Prescriptions/Medication Reconciliation: New cyanocobalamin (vitamin B-12) [Vitamin B-12] 1,000 mcg tablet 1,000 mcg PO DAILY Qty: 30 0RF ferrous sulfate [Iron (ferrous sulfate)] 325 mg (65 mg iron) tablet 325 mg PO DAILY Qty: 30 0RF polyethylene glycol 3350 [Miralax] 17 gram/dose powder 17 g PO DAILY Qty: 119 0RF Continued albuterol sulfate 90 mcg/actuation HFA aerosol inhaler 2 puff inhalation QIDP PRN (Reason: shortness of breath or wheezing) Qty: 8.5 10RF atorvastatin 20 mg tablet 20 mg PO DAILY Qty: 90 0RF dutasteride-tamsulosin 0.5-0.4 mg capsule, ER multiphase 24 hr 1 cap PO DAILY 90 Days Qty: 90 1RF ezetimibe 10 mg tablet 10 mg PO DAILY Qty: 90 0RF Trelegy Ellipta 200-62.5-25 mcg blister with device 1 inh inhalation DAILY Qty: 60 12RF benazepril 40 mg tablet 40 mg PO DAILY Qty: 90 3RF furosemide [Lasix] 40 mg tablet 40 mg PO DAILY 90 Days Qty: 90 3RF Problem Reconciliation Problems Reviewed?: Yes Patient Discharge Instructions ACTIVITY: Continue current activity and Ambulate as tolerated DIET: continue same diet Patient Instructions: Heart-Healthy Diet, DI for Pneumonia -- Adult, DI for Urinary Tract Infection (UTI), DI for Sepsis -- Adult, Stop Light Pneumonia, Stop Light Infection Print Language: [place] Providers Primary Care Provider: Ronny Belle Admit Provider: Hugo Husain Attending Provider: Hugo Husain
[2024-12-12 11:52] VITALS: BP 131/57; PULSE 87; RESP 18; TEMP 36.4; O2SAT 96
[2024-12-12 12:00] VITALS: PULSE 90
--- NOTE | 2024-12-15 10:01 | SW/DCPLANNER ---
Spoke with patient on the phone. Patient stated that he is still weak and not feeling well. Patient was in infusions when i spoke with him. Patient stated that he is aware of his upcoming appointments. Patient stated that he was able to get his new medicine picked up from clinic pharmacy. Patient stated that he doesnt have any concerns or questions at this time. Elfego Sena
== END 2024-12-12 13:14 | disposition home or self-care (01) ==
LOC: ER 13:53 → 2ND 13:56
PROVIDERS: Internal Medicine Adolescent Medicine; Physician Assistant; Admitting Provider Student in an Organized Health Care Education/Training Program; Emergency Provider Student in an Organized Health Care Education/Training Program; PCP Family Medicine; Visit Provider Student in an Organized Health Care Education/Training Program
DX: A41.9 Sepsis, unspecified organism (principal); N39.0 Urinary tract infection, site not specified; J18.9 Pneumonia, unspecified organism; R60.0 Localized edema; N32.89 Other specified disorders of bladder; D50.9 Iron deficiency anemia, unspecified; N40.0 Benign prostatic hyperplasia without lower urinary tract symptoms; J44.9 Chronic obstructive pulmonary disease, unspecified; E78.5 Hyperlipidemia, unspecified; I25.10 Atherosclerotic heart disease of native coronary artery without angina pectoris; I11.0 Hypertensive heart disease with heart failure; I50.30 Unspecified diastolic (congestive) heart failure; E66.9 Obesity, unspecified; Z68.30 Body mass index [BMI] 30.0-30.9, adult; Z90.79 Acquired absence of other genital organ(s); Z87.891 Personal history of nicotine dependence; Z88.0 Allergy status to penicillin; Z79.899 Other long term (current) drug therapy; Z79.51 Long term (current) use of inhaled steroids
CPT/HCPCS: 96365; 96366 ×5; 96367 ×2; 96375 ×2; 96376; 36415; 51798; 71046; 80053; 80202; 81001; 82607; 82728; 83540; 83550; 83605; 83735; 83880; 85025; 87040; 87070; 87086; 87088; 87186; 87205; 87636; 89220; 94640; 94761; 97110; 97162; 97166; 97530; 99285; G0378; J0131; J0456; J0692; J0696; J1756; J1885; J3375; J7050

== ENCOUNTER 2024-12-13 10:06 | Outpatient (CLI) | payer MEDICARE, SELFPAY ==
--- OUTSIDE RECORDS SUMMARY | 2024-11-11 10:30 | XMS_ITS | Encounter Summary ---
Author Organization Healthcare Address [address] [place] [address] Care Team Providers Care Hr Generalist Name Role Phone Ronny Belle MD Primary Care Provider [phone] Carrie James Unavailable [phone] Reason for Visit * Reason Comments Urinary Retention UTI Encounter Details Date Type Department Care Team (Late st Contact Info) Description 11/11/2024 10:30 AM EDT Office Visit [place] [facility] [address] [place] [address] Carrie James PA [address] [place] [address] Urinary retention (Primary Dx); History [...] drink first t herminio in the morning (EYE-CASH VAN SALESPERSON) to steady your nerves or to [...] Yellow POCT Urine Clarity Cloudy POCT Specific [place], Urine 1.005 - 1.030 1.025 POCT Protein, [...] is abnormal POC US Bladder Volume Order: [id number] Component Ref Range & Units 10 d [...] Office Visit [place] [facility] [address] [place] [address] Carrie James PA [address] [place] [address] documented as of this encounter [...] Enterococcus faecalis(A) DEANN 11/13/2024 11:06 AM EDT [facility] Comment:This isolate has bee n identified using the FDA Approved [place] System Urine Urine specimen obtained by [...] DEANN >4 ug/ml: Resistant Enterococcus faecalis Linezolid DENAN <=1 ug/ml: Susceptible Enterococcus faecalis Penicillin G [...] LAB MICROBIOLOGY - GENERAL ORDERABLES Final Result [facility] [address] [place] [address] * (ABNORMAL) POCT URINALYSIS DIPSTICK (11/11/2024 10:11 AM EDT) POCT Urine Color Yellow 11/11/2024 10:13 AM EDT [facility] POCT Urine Clarity Cloudy 11/11/2024 10:13 AM EDT [facility] POCT Urine Glucose Negative Negative mg/dL 11/11/2024 10:13 AM EDT [facility] POCT Urine Bilirubin Negative Negative mg/dL 11/11/2024 10:13 AM EDT [facility] POCT Urine Ketones Negative Negative mg/dL 11/11/2024 10:13 AM EDT [facility] POCT Urine Specific [place] 1.025 1.005 - 1.030 11/11/2024 10:13 AM EDT [facility] POCT Urine Blood Small(A) Negative 11/11/2024 10:13 AM EDT [facility] POCT pH, Urine 5.5 5.0 - 8.0 11/11/2024 10:13 AM EDT [facility] POCT Protein, Urine 100(A) Negative mg/dL 11/11/2024 10:13 AM EDT [facility] POCT Urobilinogen, Urine 0.2 0.2, 1.0 EU/dL 11/11/2024 10:13 AM EDT [facility] POCT Nitrite, Urine Negative Negative 11/11/2024 10:13 AM EDT [facility] POCT Urine Leukocyte Esterase Moderate(A) Negative 11/11/2024 10:13 AM EDT [facility] Urine 11/11/2024 10:1 1 AM EDT 11/11/2024 10:13 AM EDT Carrie [facility] POINT OF CARE T EST DOCKED DEVICE UNSOLICITED RESULTS Final Result [facility] [address] [place], [place] * POC US Bladder Volume (11/11/2024) [...] documented as of this encounter Care Teams Hr Generalist Relationship Specialty Start Date End Date Ronny Belle MD [address] [place] [id number] PCP - General 07/01/24 Carrie James PA [address] [place] [address] Physician Counseling Case Manager Urology 11/11/24 documented as of this encounter
--- OUTSIDE RECORDS SUMMARY | 2024-12-13 10:10 | XMS_ITS | Encounter Summary ---
Author Organization Healthcare Address [address] [place] [address] Care Team Providers Care Certification Officer Name Role Phone Ronny Belle MD Primary Care Provider [phone] Carrie James Unavailable [phone] Reason for Visit * Reason Onset Date Comments HCN Clinical Concern/Question 11/06/2024 HCN Status Update Call #1 11/06/2024 Encounter Details Date Type Department Care Team (Late st Contact Info) Description 11/06/2024 Telephone [facility] [address], [address] [place] [address] Carrie James PA [address] [place] [address] HCN Clinical Concern/Question; HCN Status [...] drink first t herminio in the morning (EYE-RIBBON CUTTER) to steady your nerves or to [...] of the initial request. Best contact number: [phone] Optimal time of day to reach caller: [...] will receive notification of the communication/outcome via [employer]. * Telephone Encounter - Carol Briceno LPN [...] backwith info. Thank you Best contact number: [phone] (mobile) Optimal time of day to reach caller: ANYTIME Additional comments/information from caller: None Note: Please do not reply to this message. Follow-up communication and further actions as a result of this message need to be communicated with the patient directly, if the patient is not active onMyChart. If the patient is active on MyChart, they will receive notification of the communication/outcome via [employer] documented in this encounter Plan of Treatment Upcoming Encounters Date Type Department Care Team (Late st Contact Info) Description 01/06/2025 8:30 AM EDT Office Visit [facility] [address] [place] [address] Carrie James PA [address] [place] [address] documented as of this encounter Visit Diagnoses Not on filedocumented in this encounter Additional Health Concerns Assessment Noted Time A fall risk assessment has been complete d for the patient 09/02/2024 1:40 PM EDT A Body Mass Index follow-up plan has been documented for the patient 09/02/2024 3:48 PM EDT documented as of this encounter Care Teams Certification Officer Relationship Specialty Start Date End Date Ronny Belle MD [address] [place] [address] PCP - General 07/01/24 Carrie James PA [id number] [place] [address] Physician Project Builder Urology 11/11/24 documented as of this encounter
--- OUTSIDE RECORDS SUMMARY | 2024-12-13 10:10 | XMS_ITS | Encounter Summary ---
Author Organization Healthcare Address [address] [place] [address] Care Team Providers Care Syrup Filterer Name Role Phone Ronny Belle MD Primary Care Provider [phone] Carrie James Unavailable Reason for Visit * Reason Onset Date Comments HCN Clinical Concern/Question 11/13/2024 Encounter Details Date Type Department Care Team (Late st Contact Info) Description 11/13/2024 Telephone [facility] [address] [place] [address] Carrie James PA [address] [place] [address] HCN Clinical Concern/Question Social History [...] drink first t herminio in the morning (EYE-HOTEL OFFICE MANAGER) to steady your nerves or to [...] of the initial request. Best contact number: [phone] (mobile) Optimal time of day to reach [...] will receive notification of the communication/outcome via [employer]. * Telephone Encounter - David Novak - 11/13/2024 3:04 PM EDT Pt and pt daughter are wanting results from 11/11. Urine cx * Telephone Encounter - Tara Corral - 11/13/2024 3:01 PM EDT Clinical Concern/Question Reason for Call: pt daughter asking for lab results for patient Best contact number: Other: [phone] Optimal time of day to reach caller: [...] Description 01/06/2025 8:30 AM EDT Office Visit [facility] [address] [place] [address] Carrie James PA [address] [place] [address] documented as of this encounter Visit Diagnoses Not on filedocumented in this encounter Additional Health Concerns Assessment Noted Time A fall risk assessment has been complete d for the patient 11/11/2024 10:02 AM EDT A Body Mass Index follow-up plan has been documented for the patient 11/21/2024 3:27 PM EDT documented as of this encounter Care Teams Syrup Filterer Relationship Specialty Start Date End Date Ronny Belle MD [address] [place] [address] PCP - General 07/01/24 Carrie James PA [address] [place] [address] Physician Radio Assembler Urology 11/11/24 documented as of this encounter
--- OUTSIDE RECORDS SUMMARY | 2024-12-13 10:10 | XMS_ITS | Clinical Summary ---
Author Organization [facility] [place] [address] Care Team Providers Care Patients Transporter Name Role Phone Unavailable Primary Care Provider [...] COVID-19 Vaccine ( - 2023-2 5 season) 2024 Influenza Vaccine (#1) 2024 Hepatitis B Vaccine Aged Out No longe r eligible based on patient's age to complete this topic Meningococcal B Vaccine Aged Out No l onger eligible based on patient's age to complete this topic
--- OUTSIDE RECORDS SUMMARY | 2024-12-13 10:10 | XMS_ITS | Encounter Summary ---
Author Organization Healthcare Address [address] [place] [address] Care Team Providers Care Spooling Supervisor Name Role Phone Ronny Belle MD Primary Care Provider [phone] Carrie James Unavailable [phone] Encounter Details Date Type Department Care Team (Late st Contact Info) Description 11/14/2024 Orders Only [facility] Urology [address], [address] [place] [address] Carrie James PA [address] [place] [address] Urinary tract infection with hematuria, site unspecified (Primary Dx) Social History Tobacco Use Types Packs/Day Years Used Date Smoking Tobacco: Former Cigarettes 3 67 1 335 - 2021 Smokeless Tobacco: Never Alcohol Use [...] drink first t herminio in the morning (EYE-ASSET PROTECTION AGENT) to steady your nerves or to get [...] Description 01/06/2025 8:30 AM EDT Office Visit [facility] [address] [place] [address] Carrie James PA [id number] [place] [address] documented as of this encounter Visit Diagnoses [...] documented as of this encounter Care Teams Spooling Supervisor Relationship Specialty Start Date End Date Ronny Belle MD [address] [place] [address] PCP - General 07/01/24 Carrie James PA [address] [facility] [address] [place] [address] Physician Director Of Intercollegiate Athletics Urology 11/11/24 documented as of this encounter
--- OUTSIDE RECORDS SUMMARY | 2024-12-13 10:10 | XMS_ITS | Clinical Summary ---
Author Organization [facility] Address [address] [place] [address], [address] [place] [address] Care Team Providers Care Monogram Machine Operator Name Role Phone Ronny Belle MD Primary Care Provider [phone] Allergies Active Allergy Reactions Criticality Noted Date [...] complete this topic Insurance MEDICARE Care Teams Monogram Machine Operator Relationship Specialty Start Date End Date Ronny Belle MD [address] [place] [address] PCP - General Family Medicine 04/27/22
--- OUTSIDE RECORDS SUMMARY | 2024-12-13 10:10 | XMS_ITS | Encounter Summary ---
Author Organization [facility] Address [address] [place] [address] Care Team Providers Care Weights And Measures Sealer Name Role Phone Ronny Belle MD Primary Care Provider [phone] Carrie James Unavailable [phone] Encounter Details Date Type Department Care Team (Latest Contact Info) Description 11/11/2024 Travel Social History Tobacco Use Types Packs/Day Years Used Date Smoking Tobacco: Former Cigarettes 3 67 4 271 - 2021 Smokeless Tobacco: Never Alcohol Use [...] drink first t herminio in the morning (EYE-INFORMATICA DEVELOPER) to steady your nerves or to get [...] Description 01/06/2025 8:30 AM EDT Office Visit [facility] Urology [address], [address] [place] [address] Carrie James PA [id number] [place] [address] documented as of this encounter Visit Diagnoses Not on filedocumented in this encounter Additional Health Concerns Assessment Noted Time A fall risk assessment has been complete d for the patient 11/11/2024 10:02 AM EDT A Body Mass Index follow-up plan has been documented for the patient 11/21/2024 3:27 PM EDT documented as of this encounter Care Teams Weights And Measures Sealer Relationship Specialty Start Date End Date Ronny Belle MD [facility] [place] [address] PCP - General 07/01/24 Carrie James PA [address] [place] [address] Physician Clam Grower Urology 11/11/24 documented as of this encounter
--- OUTSIDE RECORDS SUMMARY | 2024-12-13 10:10 | XMS_ITS | Encounter Summary ---
Author Organization Healthcare Address [address] [place] [address] Care Team Providers Care Mobile Application Engineer Name Role Phone Ronny Belle MD Primary Care Provider [phone] Carrie James Unavailable [phone] Reason for Visit * Reason Onset Date Comments Confirmed Chanegs 12/05/2024 Encounter Details Date Type Department Care Team (Late st Contact Info) Description 12/05/2024 Telephone [facility] [address] [place] [address] Carrie James PA [address] [place] [address] Confirmed [place] Social History Tobacco Use Types Packs/Day Years Used Date Smoking Tobacco: Former Cigarettes 3 67 1 001 - 2022 Smokeless Tobacco: Never Alcohol Use [...] drink first t herminio in the morning (EYE-SANITARIAN) to steady your nerves or to get [...] at 8:30 am with ES in the [facility] at 0 [facility], , [facility] [address] documented in this encounter Plan of Treatment Upcoming Encounters Date Type Department Care Team (Late st Contact Info) Description 01/06/2025 8:30 AM EDT Office Visit [facility] [address], [address] [place] [address] Carrie James PA [facility] [address] [address] documented as of this encounter Visit Diagnoses Not on filedocumented in this encounter Additional Health Concerns Assessment Noted Time A fall risk assessment has been complete d for the patient 11/11/2024 10:02 AM EDT A Body Mass Index follow-up plan has been documented for the patient 11/21/2024 3:27 PM EDT documented as of this encounter Care Teams Mobile Application Engineer Relationship Specialty Start Date End Date Ronny Belle MD [address] [place] [address] PCP - General 07/01/24 Carrie James PA [address] [place] [address] Physician Palliative Care Nurse Urology 11/11/24 documented as of this encounter
--- OUTSIDE RECORDS SUMMARY | 2024-12-13 10:10 | XMS_ITS | Encounter Summary ---
Author Organization Healthcare Address [address] [place] [address] Care Team Providers Care Braiding Machine Operator Name Role Phone Ronny Belle MD Primary Care Provider [phone] Carrie James Unavailable [phone] Encounter Details Date Type Department Care Team (Late st Contact Info) Description 11/14/2024 Results Follow-Up [facility] Urology [address] [place] [address] Carrie James PA [address] [place] [address] Social History Tobacco Use [...] drink first t herminio in the morning (EYE-WASTE MACHINE OFFBEARER) to steady your nerves or to get [...] Description 01/06/2025 8:30 AM EDT Office Visit [facility] [address] [place] [address] Carrie James PA [address] [place] [address] documented as of this encounter Visit Diagnoses Not on filedocumented in this encounter Additional Health Concerns Assessment Noted Time A fall risk assessment has been complete d for the patient 11/11/2024 10:02 AM EDT A Body Mass Index follow-up plan has been documented for the patient 11/21/2024 3:27 PM EDT documented as of this encounter Care Teams Braiding Machine Operator Relationship Specialty Start Date End Date Ronny Belle MD [address] [place] [address] PCP - General 07/01/24 Carrie James PA [address] [place] [address] Physician Molding Machine Operator Helper Urology 11/11/24 documented as of this encounter
--- OUTSIDE RECORDS SUMMARY | 2024-12-13 10:10 | XMS_ITS | Clinical Summary ---
Author Organization [facility] Address [address] [place] [address] Care Team Providers Care Motor Vehicle Or Caravan Salesperson Name Role Phone Ronny Belle MD Primary Care Provider [phone] Carrie James Unavailable [phone] Allergies Active Allergy Reactions Criticality Noted Date [...] needed for headaches, pain or fever. Under [place] law, monthly prescriptions (30 days) can be [...] Type Department Care Team Description 12/05/2024 Telephone [facility] Urology [address] [place] [address] Carrie James PA Confirmed Chanegs 11/14/2024 Results Follow-Up [facility] [address] [place] [address] Carrie James PA 11/14/2024 Orders Only [facility] [address] [place] [address] Carrie James PA Urinary tract infection with hematuria, site unspecified (Primary Dx) 11/13/2024 Telephone [facility] [address] [place] [address] Carrie James PA HCN Clinical Concern/Question 11/11/2024 10:30 AM EDT Office Visit [facility] [address] [place] [address] Carrie James PA Urinary retention (Primary Dx); History of UTI 11/11/2024 Travel 11/06/2024 Telephone [facility] [address] [place] [address] Carrie James PA HCN Clinical Concern/Question; [...] drink first t herminio in the morning (EYE-LINTER TENDER) to steady your nerves or to get [...] Description 01/06/2025 8:30 AM EDT Office Visit [facility] [address] [place] [address] Carrie James PA [address] [place] [address] Health Maintenance Due Date Last Done Comments [facility]-Medicare Annual Wellness (AWV) 1940 [facility]-/Child/Adol SDOH Screenings 1940 [facility]- SDOH Screenings 1958 [facility]-Adult SDOH Screenings 1958 [facility]-DTaP,Tdap,and Td Vaccines (1 - Tdap) 10/29/1959 [facility]-Pneumococcal Vaccine: 50+ Years (1 of 1 - PCV) 1990 [facility]-Zoster Vaccines (1 of 2) 1990 [facility]-RSV Vaccine: 60+ Years or (1 - 1-dose 75+ series) 10/29/2015 [id number] Vaccine (2024- season) 2024 01/25/2022, 02/09/2021, 07/01/2020, Additional history exists [facility]-Influenza [...] Clinic Collect (11/11/2024 10:38 AM EDT) Pathologist [facility] Culture 10,000 - 100,000 CFU/mL Enterococcus faecalis(A) DEANN 11/13/2024 11:06 AM EDT [facility] Comment:This isolate has bee n identified using the FDA Approved [employer] [place] System Urine Urine specimen obtained by [...] LAB MICROBIOLOGY - GENERAL ORDERABLES Final Result [facility] [address] [place] [address] * (ABNORMAL) POCT URINALYSIS DIPSTICK (11/11/2024 10:11 AM EDT) Pathologist [facility] POCT Urine Color Yellow 11/11/2024 10:13 AM EDT [facility] POCT Urine Clarity Cloudy 11/11/2024 10:13 AM EDT [facility] POCT Urine Glucose Negative Negative mg/dL 11/11/2024 10:13 AM EDT [facility] POCT Urine Bilirubin Negative Negative mg/dL 11/11/2024 10:13 AM EDT [facility] POCT Urine Ketones Negative Negative mg/dL 11/11/2024 10:13 AM EDT [facility] POCT Urine Specific [place] 1.025 1.005 - 1.030 11/11/2024 10:13 AM EDT [facility] POCT Urine Blood Small(A) Negative 11/11/2024 10:13 AM EDT [facility] POCT pH, Urine 5.5 5.0 - 8.0 11/11/2024 10:13 AM EDT [facility] POCT Protein, Urine 100(A) Negative mg/dL 11/11/2024 10:13 AM EDT [facility] POCT Urobilinogen, Urine 0.2 0.2, 1.0 EU/dL 11/11/2024 10:13 AM EDT [facility] POCT Nitrite, Urine Negative Negative 11/11/2024 10:13 AM EDT [facility] POCT Urine Leukocyte Esterase Moderate(A) Negative 11/11/2024 10:13 AM EDT [facility] Urine 11/11/2024 10:1 1 AM EDT 11/11/2024 10:13 AM EDT Carrie ALVAREZ LAB POINT OF CARE T EST DOCKED DEVICE UNSOLICITED RESULTS Final Result [facility] [address], [place] * POC US Bladder Volume (11/11/2024) Urine, Volume 195 mL IMAGING Anatomical Region Laterality Modality Other Urine 11/11/2024 Carrie ALVAREZ IMG POINT OF CARE ULTRASOUN D Final Result from Last [address] [place] [address] MEDICARE Advance Directives * Full Code (Latest Code Status on File) Date Activated Date Inactivated Comments 08/22/2024 4:19 PM 08/23/2024 6:07 PM Question Answer Comments I have reviewed the capacity from the link above and, if needed, have updated to appropriate status: Yes Care Teams Motor Vehicle Or Caravan Salesperson Relationship Specialty Start Date End Date Ronny Belle MD [facility] [place] [address] PCP - General 07/01/24 Carrie James PA [address] [facility] [address] [place] [address] Physician Analyst Market Intelligence Urology 11/11/24
--- OUTSIDE RECORDS SUMMARY | 2024-12-13 10:10 | XMS_ITS | Clinical Summary ---
Author Organization [facility] Address [address] [place] [address] Care Team Providers Care District Ranger Name Role Phone Ronny Belle MD Primary Care Provider [phone] Allergies No known active allergies Social History [...] Vaccines (1 - 1-dose 75+ series) 10/29/2015 Advance Care Planning 04/09/2024 Depression Screening 04/09/2024 COVID-19 Vaccine (2023- season) 2024 Influenza Vaccination (#1) 2024 Insurance MEDICARE Care Teams District Ranger Relationship Specialty Start Date End Date Ronny Belle MD [address] [place], [place] [id number] PCP - General Family Medicine 04/13/22
--- OUTSIDE RECORDS SUMMARY | 2024-12-13 10:11 | XMS_ITS | Encounter Summary ---
Author Organization Healthcare Address [address] [place] [address] Care Team Providers Care Electronics Instructor Name Role Phone Ronny Belle MD Primary Care Provider [phone] Carrie James Unavailable [phone] Encounter Details Date Type Department Care Team (Late st Contact Info) Description 06/09/2024 Orders Only External Location [address] [place] [address] Provider, External Social History Tobacco Use Types [...] Description 01/06/2025 8:30 AM EDT Office Visit [facility] [address] [place] [phone] Carrie James PA [address] [place] [address] documented as of this encounter Procedures Procedure [...] on filedocumented in this encounter Care Teams Electronics Instructor Relationship Specialty Start Date End Date Ronny Belle MD [address] [place] [address] PCP - General 07/01/24 Carrie James PA [address] [facility] [address] [place] [address] Physician Sleep Lab Technician Urology 11/11/24 documented as of this encounter
[2024-12-13 10:20] VITALS: BMI 30.9
[2024-12-13] MEDS: SODIUM CHLORIDE 0.9% 10ML FLUSH SYRINGE 10 ML IV (11:04)
[2024-12-13] MEDS: DAPTOmycin 500 MG in 0.9 % SODIUM CHLORIDE 50 ML 100 MG IV (11:10)
== END 2024-12-13 11:50 | disposition home or self-care (01) ==
LOC: INF 10:09
PROVIDERS: PCP Family Medicine
DX: N39.0 Urinary tract infection, site not specified (principal)
CPT/HCPCS: 96365; J0878

== ENCOUNTER 2024-12-14 09:52 | Outpatient (CLI) | payer MEDICARE, SELFPAY ==
--- OUTSIDE RECORDS SUMMARY | 2024-11-11 10:30 | XMS_ITS | Encounter Summary ---
Author Organization Healthcare Address [address] [place] [address] Care Team Providers Care Financial Services Officer Name Role Phone Ronny Belle MD Primary Care Provider [phone] Carrie James Unavailable [phone] Reason for Visit * Reason Comments Urinary Retention UTI Encounter Details Date Type Department Care Team (Late st Contact Info) Description 11/11/2024 10:30 AM EDT Office Visit [facility] [address], [address] [place] [address] Carrie James PA [address] [place] [address] Urinary retention (Primary Dx); History [...] drink first t herminio in the morning (EYE-DIRECTOR PRODUCT DEVELOPMENT) to steady your nerves or to get [...] Yellow POCT Urine Clarity Cloudy POCT Specific [place], Urine 1.005 - 1.030 1.025 POCT Protein, [...] is abnormal POC US Bladder Volume Order: [id number] Component Ref Range & Units 10 d [...] Office Visit [place] [facility] [address] [place] [address] Carrie James PA [address] [place] [address] documented as of this encounter [...] Enterococcus faecalis(A) DEANN 11/13/2024 11:06 AM EDT [facility] Comment:This isolate has bee n identified using the FDA Approved [place] System Urine Urine specimen obtained by [...] LAB MICROBIOLOGY - GENERAL ORDERABLES Final Result [facility] [address] [place] [address] * (ABNORMAL) POCT URINALYSIS DIPSTICK (11/11/2024 10:11 AM EDT) POCT Urine Color Yellow 11/11/2024 10:13 AM EDT [facility] POCT Urine Clarity Cloudy 11/11/2024 10:13 AM EDT [facility] POCT Urine Glucose Negative Negative mg/dL 11/11/2024 10:13 AM EDT [facility] POCT Urine Bilirubin Negative Negative mg/dL 11/11/2024 10:13 AM EDT [facility] POCT Urine Ketones Negative Negative mg/dL 11/11/2024 10:13 AM EDT [facility] POCT Urine Specific [place] 1.025 1.005 - 1.030 11/11/2024 10:13 AM EDT [facility] POCT Urine Blood Small(A) Negative 11/11/2024 10:13 AM EDT [facility] POCT pH, Urine 5.5 5.0 - 8.0 11/11/2024 10:13 AM EDT [facility] POCT Protein, Urine 100(A) Negative mg/dL 11/11/2024 10:13 AM EDT [facility] POCT Urobilinogen, Urine 0.2 0.2, 1.0 EU/dL 11/11/2024 10:13 AM EDT [facility] POCT Nitrite, Urine Negative Negative 11/11/2024 10:13 AM EDT [facility] POCT Urine Leukocyte Esterase Moderate(A) Negative 11/11/2024 10:13 AM EDT [facility] Urine 11/11/2024 10:1 1 AM EDT 11/11/2024 10:13 AM EDT [facility] POINT OF CARE T EST DOCKED DEVICE UNSOLICITED RESULTS Final Result [facility] [address] [place], [place] * POC US Bladder Volume (11/11/2024) [...] documented as of this encounter Care Teams Financial Services Officer Relationship Specialty Start Date End Date Ronny Belle MD [address] [place] [id number] PCP - General 07/01/24 Carrie James PA [address] [place] [address] Physician Annual Giving Officer Urology 11/11/24 documented as of this encounter
--- OUTSIDE RECORDS SUMMARY | 2024-12-14 09:56 | XMS_ITS | Clinical Summary ---
Author Organization [facility] [place] [address] Care Team Providers Care Meat Selector Name Role Phone Unavailable Primary Care Provider [...]
--- OUTSIDE RECORDS SUMMARY | 2024-12-14 09:56 | XMS_ITS | Clinical Summary ---
Author Organization [facility] Address [address] [place] [address], [address] [place] [address] Care Team Providers Care Software Engineer Mobile Name Role Phone Ronny Belle MD Primary Care Provider [phone] Allergies Active Allergy Reactions Criticality Noted Date [...] complete this topic Insurance MEDICARE Care Teams Software Engineer Mobile Relationship Specialty Start Date End Date Ronny Belle MD [address] [place] [address] PCP - General Family Medicine 04/27/22
--- OUTSIDE RECORDS SUMMARY | 2024-12-14 09:56 | XMS_ITS | Clinical Summary ---
Author Organization [facility] Address [address] [place] [address] Care Team Providers Care Buffet Runner Name Role Phone Ronny Belle MD Primary Care Provider [phone] Allergies No known active allergies Social History [...] Vaccination (#1) 2024 Insurance MEDICARE Care Teams Buffet Runner Relationship Specialty Start Date End Date Ronny Belle MD [address] [place], [place] [id number] PCP - General Family Medicine 04/13/22
--- OUTSIDE RECORDS SUMMARY | 2024-12-14 09:56 | XMS_ITS | Clinical Summary ---
Author Organization [facility] Address [address] [place] [address] Care Team Providers Care Pediatric Speech Therapist Name Role Phone Ronny Belle MD Primary Care Provider [phone] Carrie James Unavailable [phone] Allergies Active Allergy Reactions Criticality Noted Date [...] needed for headaches, pain or fever. Under [place] law, monthly prescriptions (30 days) can be [...] Type Department Care Team Description 12/05/2024 Telephone [facility] [address] [place] [phone] Carrie James PA Confirmed Chanegs 11/14/2024 Results Follow-Up [facility] [address] [place] [phone] Carrie James PA 11/14/2024 Orders Only [facility] [address] [place] [phone] Carrie James PA Urinary tract infection with hematuria, site unspecified (Primary Dx) 11/13/2024 Telephone [facility] [address] [place] [phone] Carrie James PA HCN Clinical Concern/Question 11/11/2024 10:30 AM EDT Office Visit [facility] [address] [place] [phone] Carrie James PA Urinary retention (Primary Dx); History of UTI 11/11/2024 Travel 11/06/2024 Telephone [facility] [address] [place] [phone] Carrie James PA HCN Clinical Concern/Question; [...] drink first t herminio in the morning (EYE-RUBBER GOODS ASSEMBLER) to steady your nerves or to get [...] Office Visit [facility] [address] [place] [address] Carrie James PA [address] [place] [address] Health Maintenance Due Date Last Done Comments [facility]-Medicare Annual Wellness (AWV) 1940 [facility]-/Child/Adol SDOH Screenings 1940 [facility]- SDOH Screenings 1958 [facility]-Adult SDOH Screenings 1958 [facility]-DTaP,Tdap,and Td Vaccines (1 - Tdap) 10/29/1959 [facility]-Pneumococcal Vaccine: 50+ Years (1 of 1 - PCV) 1990 [facility]-Zoster Vaccines (1 of 2) 1990 [facility]-RSV Vaccine: 60+ Years or (1 - 1-dose 75+ series) 10/29/2015 [id number] Vaccine (2024- season) 2024 01/25/2022, 02/09/2021, 07/01/2020, [...] Enterococcus faecalis(A) DEANN 11/13/2024 11:06 AM EDT [facility] Comment:This isolate has bee n identified using the FDA Approved [employer] Grouper [place] System Urine Urine specimen obtained by [...] LAB MICROBIOLOGY - GENERAL ORDERABLES Final Result [facility] [address] [place] [address] * (ABNORMAL) POCT URINALYSIS DIPSTICK (11/11/2024 10:11 [...] EDT [facility] POCT Urine Specific [place] 1.025 1.005 - 1.030 11/11/2024 10:13 AM EDT [facility] POCT Urine Blood Small(A) Negative 11/11/2024 10:13 AM EDT [facility] POCT pH, Urine 5.5 5.0 - 8.0 11/11/2024 10:13 AM EDT [facility] POCT Protein, Urine 100(A) Negative mg/dL 11/11/2024 10:13 AM EDT [facility] POCT Urobilinogen, Urine 0.2 0.2, 1.0 EU/dL 11/11/2024 10:13 AM EDT [facility] POCT Nitrite, Urine Negative Negative 11/11/2024 10:13 AM EDT [facility] POCT Urine Leukocyte Esterase Moderate(A) Negative 11/11/2024 10:13 AM EDT [facility] Urine 11/11/2024 10:1 1 AM EDT 11/11/2024 10:13 AM EDT Carrie ALVAREZ LAB POINT OF CARE T EST DOCKED DEVICE UNSOLICITED RESULTS Final Result [facility] [address], [place] * POC US Bladder Volume (11/11/2024) Urine, Volume 195 mL IMAGING Anatomical Region Laterality Modality Other Urine 11/11/2024 Carrie ALVAREZ IMG POINT OF CARE ULTRASOUN D Final Result from Last [address] [place] [address] [place] [address] MEDICARE Advance Directives * Full Code (Latest Code Status on File) Date Activated Date Inactivated Comments 08/22/2024 4:19 PM 08/23/2024 6:07 PM Question Answer Comments I have reviewed the capacity from the link above and, if needed, have updated to appropriate status: Yes Care Teams Pediatric Speech Therapist Relationship Specialty Start Date End Date Ronny Belle MD [facility] [place] [address] PCP - General 07/01/24 Carrie James PA [address] [facility] [address] [place] [address] Physician Powder Worker Urology 11/11/24
--- OUTSIDE RECORDS SUMMARY | 2024-12-14 09:56 | XMS_ITS | Encounter Summary ---
Author Organization [facility] Address [address] [place] [address] Care Team Providers Care Battery Vent Plug Inserter Name Role Phone Ronny Belle MD Primary Care Provider [phone] Carrie James Unavailable Reason for Visit * Reason Onset Date Comments HCN Clinical Concern/Question 11/06/2024 HCN Status Update Call #1 11/06/2024 Encounter Details Date Type Department Care Team (Late st Contact Info) Description 11/06/2024 Telephone [facility] [address] [place] [address] Carrie James PA [address] [place] [address] HCN Clinical Concern/Question; HCN Status [...] drink first t herminio in the morning (EYE-RADIATION MONITOR) to steady your nerves or to get [...] of the initial request. Best contact number: [phone] Optimal time of day to reach caller: [...] will receive notification of the communication/outcome via [employer]. * Telephone Encounter - Carol Briceno LPN [...] backwith info. Thank you Best contact number: [phone] (mobile) Optimal time of day to reach caller: ANYTIME Additional comments/information from caller: None Note: Please do not reply to this message. Follow-up communication and further actions as a result of this message need to be communicated with the patient directly, if the patient is not active onMyChart. If the patient is active on MyChart, they will receive notification of the communication/outcome via [employer]. documented in this encounter Plan of Treatment Upcoming Encounters Date Type Department Care Team (Late st Contact Info) Description 01/06/2025 8:30 AM EDT Office Visit [facility] [address] [place] [address] Carrie James PA [address] [place] [address] documented as of this encounter Visit Diagnoses Not on filedocumented in this encounter Additional Health Concerns Assessment Noted Time A fall risk assessment has been complete d for the patient 09/02/2024 1:40 PM EDT A Body Mass Index follow-up plan has been documented for the patient 09/02/2024 3:48 PM EDT documented as of this encounter Care Teams Battery Vent Plug Inserter Relationship Specialty Start Date End Date Ronny Belle MD [address] [place] [address] PCP - General 07/01/24 Carrie James PA [id number] [place] [address] Physician Automobile Brakes Bonder Urology 11/11/24 documented as of this encounter
--- OUTSIDE RECORDS SUMMARY | 2024-12-14 09:56 | XMS_ITS | Encounter Summary ---
Author Organization [facility] Address [address] [place] [address] Care Team Providers Care Event Producer Name Role Phone Ronny Belle MD Primary Care Provider [phone] Carrie James Unavailable [phone] Reason for Visit * Reason Onset Date Comments Confirmed Chanegs 12/05/2024 Encounter Details Date Type Department Care Team (Late st Contact Info) Description 12/05/2024 Telephone [facility] [address], [address] [place] [address] Carrie James PA [address] [place] [address] Confirmed Baylee Social History Tobacco Use Types Packs/Day Years Used Date Smoking Tobacco: Former Cigarettes 3 67 1 394 - 2022 Smokeless Tobacco: Never Alcohol Use [...] drink first t herminio in the morning (EYE-PATTERN HANGER) to steady your nerves or to get [...] at 8:30 am with ES in the [facility], , [facility] [address] documented in this encounter Plan of Treatment Upcoming Encounters Date Type Department Care Team (Late st Contact Info) Description 01/06/2025 8:30 AM EDT Office Visit [facility] [address] [place] [address] Carrie James PA [facility] [address] [address] documented as of this encounter Visit Diagnoses Not on filedocumented in this encounter Additional Health Concerns Assessment Noted Time A fall risk assessment has been complete d for the patient 11/11/2024 10:02 AM EDT A Body Mass Index follow-up plan has been documented for the patient 11/21/2024 3:27 PM EDT documented as of this encounter Care Teams Event Producer Relationship Specialty Start Date End Date Ronny Belle MD [address] [place] [address] PCP - General 07/01/24 Carrie James PA [address] [place] [address] Physician Materials And Processes Manager Urology 11/11/24 documented as of this encounter
--- OUTSIDE RECORDS SUMMARY | 2024-12-14 09:57 | XMS_ITS | Encounter Summary ---
Author Organization [facility] Address [address] [place] [address] Care Team Providers Care Conservation Technician Name Role Phone Ronny Belle MD Primary Care Provider [phone] Carrie James Unavailable [phone] Encounter Details Date Type Department Care Team (Late st Contact Info) Description 06/09/2024 Orders Only External Location [address] [place] [address] Provider, External Social History Tobacco Use Types [...] Description 01/06/2025 8:30 AM EDT Office Visit [facility] [address] [place] [phone] Carrie James PA [address] [place] [address] documented as of this encounter Procedures Procedure [...] on filedocumented in this encounter Care Teams Conservation Technician Relationship Specialty Start Date End Date Ronny Belle MD [address] [place] [address] PCP - General 07/01/24 Carrie James PA [address] [facility] [address] [place] [address] Physician Pipe Fitter Ammonia Urology 11/11/24 documented as of this encounter
--- OUTSIDE RECORDS SUMMARY | 2024-12-14 09:57 | XMS_ITS | Encounter Summary ---
Author Organization [facility] Address [address] [place] [address] Care Team Providers Care Federal Aid Coordinator Name Role Phone Ronny Belle MD Primary Care Provider [phone] Carrie James Unavailable [phone] Encounter Details Date Type Department Care Team (Late st Contact Info) Description 11/14/2024 Results Follow-Up [facility] [address] [place] [address] Carrie James PA [address] [place] [address] Social History Tobacco Use [...] drink first t herminio in the morning (EYE-BALANCER SCALE) to steady your nerves or to get [...] Description 01/06/2025 8:30 AM EDT Office Visit [facility] [address] [place] [address] Carrie James PA [address] [place] [address] documented as of this encounter Visit Diagnoses Not on filedocumented in this encounter Additional Health Concerns Assessment Noted Time A fall risk assessment has been complete d for the patient 11/11/2024 10:02 AM EDT A Body Mass Index follow-up plan has been documented for the patient 11/21/2024 3:27 PM EDT documented as of this encounter Care Teams Federal Aid Coordinator Relationship Specialty Start Date End Date Ronny Belle MD [address] [place] [address] PCP - General 07/01/24 Carrie James PA [address] [place] [address] Physician Mold Loft Worker Urology 11/11/24 documented as of this encounter
--- OUTSIDE RECORDS SUMMARY | 2024-12-14 09:57 | XMS_ITS | Encounter Summary ---
Author Organization [facility] Address [address] [place] [address] Care Team Providers Care Rn Chemical Dependency Name Role Phone Ronny Belle MD Primary Care Provider [phone] Carrie James Unavailable [phone] Encounter Details Date Type Department Care Team (Latest Contact Info) Description 11/11/2024 Travel Social History Tobacco Use Types Packs/Day Years Used Date Smoking Tobacco: Former Cigarettes 3 67 1 363 - 2021 Smokeless Tobacco: Never Alcohol Use [...] drink first t herminio in the morning (EYE-SPEAR FISHER) to steady your nerves or to get [...] Description 01/06/2025 8:30 AM EDT Office Visit [facility] [address] [place] [address] Carrie James PA [id number] [place] [address] documented as of this encounter Visit Diagnoses Not on filedocumented in this encounter Additional Health Concerns Assessment Noted Time A fall risk assessment has been complete d for the patient 11/11/2024 10:02 AM EDT A Body Mass Index follow-up plan has been documented for the patient 11/21/2024 3:27 PM EDT documented as of this encounter Care Teams Rn Chemical Dependency Relationship Specialty Start Date End Date Ronny Belle MD [facility] [place] [address] PCP - General 07/01/24 Carrie James PA [address] [place] [address] Physician Tungsten Refiner Urology 11/11/24 documented as of this encounter
--- OUTSIDE RECORDS SUMMARY | 2024-12-14 09:57 | XMS_ITS | Encounter Summary ---
Author Organization [facility] Address [address] [place] [address] Care Team Providers Care Ventilating Equipment Installer Name Role Phone Ronny Belle MD Primary Care Provider [phone] Carrie James Unavailable [phone] Encounter Details Date Type Department Care Team (Late st Contact Info) Description 11/14/2024 Orders Only [facility] [address] [place] [address] Carrie James PA [address] [place] [address] Urinary tract infection with hematuria, site unspecified (Primary Dx) Social History Tobacco Use Types Packs/Day Years Used Date Smoking Tobacco: Former Cigarettes 3 67 1 755 - 202 Smokeless Tobacco: Never Alcohol Use [...] drink first t herminio in the morning (EYE-SHIFT PRODUCTION ASSOCIATE) to steady your nerves or to get [...] Office Visit [facility] [address] [place] [address] Carrie James PA [address] [place] [address] documented as of this encounter Visit Diagnoses [...] documented as of this encounter Care Teams Ventilating Equipment Installer Relationship Specialty Start Date End Date Ronny Belle MD [address] [place] [address] PCP - General 07/01/24 Carrie James PA [address] [facility] [address] [place] [address] Physician Hand Potter Urology 11/11/24 documented as of this encounter
--- OUTSIDE RECORDS SUMMARY | 2024-12-14 09:57 | XMS_ITS | Encounter Summary ---
Author Organization [facility] Address [address] [place] [address] Care Team Providers Care Nursery Technician Name Role Phone Ronny Belle MD Primary Care Provider Carrie James Unavailable [phone] Reason for Visit * Reason Onset Date Comments HCN Clinical Concern/Question 11/13/2024 Encounter Details Date Type Department Care Team (Late st Contact Info) Description 11/13/2024 Telephone [facility] [address] [place] [address] Carrie James PA [address] [place] [address] HCN Clinical Concern/Question Social History [...] drink first t herminio in the morning (EYE-BLISTER PACK OPERATOR) to steady your nerves or to [...] of the initial request. Best contact number: [phone] (mobile) Optimal time of day to reach [...] will receive notification of the communication/outcome via [employer]. * Telephone Encounter - David Novak - 11/13/2024 3:04 PM EDT Pt and pt daughter are wanting results from 11/11. Urine cx * Telephone Encounter - Tara Corral - 11/13/2024 3:01 PM EDT Clinical Concern/Question Reason for Call: pt daughter asking for lab results for patient Best contact number: Other: [phone] Optimal time of day to reach caller: [...] Description 01/06/2025 8:30 AM EDT Office Visit [facility]rology [address] [place] [address] Carrie James PA [address] [place] [address] documented as of this encounter Visit Diagnoses Not on filedocumented in this encounter Additional Health Concerns Assessment Noted Time A fall risk assessment has been complete d for the patient 11/11/2024 10:02 AM EDT A Body Mass Index follow-up plan has been documented for the patient 11/21/2024 3:27 PM EDT documented as of this encounter Care Teams Nursery Technician Relationship Specialty Start Date End Date Ronny Belle MD [address] [place] [address] PCP - General 07/01/24 Carrie James PA [address] [place] [address] Physician Licensed Insurance Sales Agent Urology 11/11/24 documented as of this encounter
[2024-12-14 10:08] VITALS: BMI 30.9
[2024-12-14] MEDS: DAPTOmycin 500 MG in 0.9 % SODIUM CHLORIDE 50 ML 100 MG IV (10:20)
[2024-12-14] MEDS: SODIUM CHLORIDE 0.9% 10ML FLUSH SYRINGE 10 ML IV (10:20)
--- NOTE | 2024-12-14 11:08 | PC.NURSE ---
Pt requested to leave IV in. I spoke w/Dr Husain who state it was ok to leave in. IV was wrapped w/coban and covered w/sleeve
== END 2024-12-14 11:00 | disposition home or self-care (01) ==
LOC: INF 09:55
PROVIDERS: PCP Family Medicine
DX: N39.0 Urinary tract infection, site not specified (principal)
CPT/HCPCS: 96365; J0878

== ENCOUNTER 2024-12-15 10:02 | Outpatient (CLI) | payer MEDICARE, SELFPAY ==
--- OUTSIDE RECORDS SUMMARY | 2024-11-11 10:30 | XMS_ITS | Encounter Summary ---
Author Organization Healthcare Address [address] [place] [address] Care Team Providers Care License Clerk Name Role Phone Ronny Belle MD Primary Care Provider [phone] Carrie James Unavailable [phone] Reason for Visit * Reason Comments Urinary Retention UTI Encounter Details Date Type Department Care Team (Late st Contact Info) Description 11/11/2024 10:30 AM EDT Office Visit [place] [facility] [address] [place] [address] Carrie James PA [address] [place] [address] Urinary retention (Primary Dx); History [...] drink first t herminio in the morning (EYE-ROUND CORNER CUTTER OPERATOR) to steady your nerves or to [...] 10:30 AM EDT Subjective Patient ID: Celestino Lnudy is a 84 y.o. male. Chief Complaint [...] Yellow POCT Urine Clarity Cloudy POCT Specific [place], Urine 1.005 - 1.030 1.025 POCT Protein, [...] is abnormal POC US Bladder Volume Order: [id number] Component Ref Range & Units 10 d [...] Office Visit [place] [facility] [address] [place] [address] Carrie James PA [address] [place] [address] documented as of this encounter [...] Enterococcus faecalis(A) DEANN 11/13/2024 11:06 AM EDT [facility] Comment:This isolate has bee n identified using the FDA Approved i2i Logicer [place] System Urine Urine specimen obtained by [...] LAB MICROBIOLOGY - GENERAL ORDERABLES Final Result [facility] [address] [place] [address] * (ABNORMAL) POCT URINALYSIS DIPSTICK (11/11/2024 10:11 AM EDT) POCT Urine Color Yellow 11/11/2024 10:13 AM EDT [facility] POCT Urine Clarity Cloudy 11/11/2024 10:13 AM EDT [facility] POCT Urine Glucose Negative Negative mg/dL 11/11/2024 10:13 AM EDT [facility] POCT Urine Bilirubin Negative Negative mg/dL 11/11/2024 10:13 AM EDT [facility] POCT Urine Ketones Negative Negative mg/dL 11/11/2024 10:13 AM EDT [facility] POCT Urine Specific [place] 1.025 1.005 - 1.030 11/11/2024 10:13 AM EDT [facility] POCT Urine Blood Small(A) Negative 11/11/2024 10:13 AM EDT [facility] POCT pH, Urine 5.5 5.0 - 8.0 11/11/2024 10:13 AM EDT [facility] POCT Protein, Urine 100(A) Negative mg/dL 11/11/2024 10:13 AM EDT [facility] POCT Urobilinogen, Urine 0.2 0.2, 1.0 EU/dL 11/11/2024 10:13 AM EDT [facility] POCT Nitrite, Urine Negative Negative 11/11/2024 10:13 AM EDT [facility] POCT Urine Leukocyte Esterase Moderate(A) Negative 11/11/2024 10:13 AM EDT [facility] Urine 11/11/2024 10:1 1 AM EDT 11/11/2024 10:13 AM EDT Carrie [facility] POINT OF CARE T EST DOCKED DEVICE UNSOLICITED RESULTS Final Result [facility] [address] [place], [place] * POC US Bladder Volume (11/11/2024) [...] documented as of this encounter Care Teams License Clerk Relationship Specialty Start Date End Date Ronny Belle MD [address] [place] [id number] PCP - General 07/01/24 Carrie James PA [address] [place] [address] Physician Marine Mammal Trainer Urology 11/11/24 documented as of this encounter
--- OUTSIDE RECORDS SUMMARY | 2024-12-15 10:05 | XMS_ITS | Encounter Summary ---
Author Organization [facility] Address [address] [place] [address] Care Team Providers Care Insurance Administrative Assistant Name Role Phone Ronny Belle MD Primary Care Provider [phone] Carrie James Unavailable [phone] Reason for Visit * Reason Onset Date Comments Confirmed Chanegs 12/05/2024 Encounter Details Date Type Department Care Team (Late st Contact Info) Description 12/05/2024 Telephone [facility] [address] [place] [address] Carrie James PA [address] [place] [address] Confirmed Baylee Social History Tobacco Use Types Packs/Day Years Used Date Smoking Tobacco: Former Cigarettes 3 67 1 323 - 2022 Smokeless Tobacco: Never Alcohol Use [...] drink first t herminio in the morning (EYE-PRODUCTION REPAIRER) to steady your nerves or to get [...] at 8:30 am with ES in the [facility] at 0 [facility], , [facility] [address] documented in this encounter Plan of Treatment Upcoming Encounters Date Type Department Care Team (Late st Contact Info) Description 01/06/2025 8:30 AM EDT Office Visit [facility]rology [address] [place] [address] Carrie James PA [facility] [address] [address] documented as of this encounter Visit Diagnoses Not on filedocumented in this encounter Additional Health Concerns Assessment Noted Time A fall risk assessment has been complete d for the patient 11/11/2024 10:02 AM EDT A Body Mass Index follow-up plan has been documented for the patient 11/21/2024 3:27 PM EDT documented as of this encounter Care Teams Insurance Administrative Assistant Relationship Specialty Start Date End Date Ronny Belle MD [address] [place] [address] PCP - General 07/01/24 Carrie James PA [address] [place] [address] Physician [place] Urology 11/11/24 documented as of this encounter
--- OUTSIDE RECORDS SUMMARY | 2024-12-15 10:05 | XMS_ITS | Clinical Summary ---
Author Organization [facility] Address [address] [place] [address] Care Team Providers Care Dry Molder Name Role Phone Ronny Belle MD Primary Care Provider [phone] Carrie James Unavailable [phone] Allergies Active Allergy Reactions Criticality Noted Date [...] needed for headaches, pain or fever. Under [place] law, monthly prescriptions (30 days) can be [...] Type Department Care Team Description 12/05/2024 Telephone [facility] [address] [place] [address] Carrie James PA Confirmed Chanegs 11/14/2024 Results Follow-Up [facility] [address] [place] [address] Carrie James PA 11/14/2024 Orders Only [facility] [address] [place] [address] Carrie James PA Urinary tract infection with hematuria, site unspecified (Primary Dx) 11/13/2024 Telephone [facility] [address] [place] [address] Carrie James PA HCN Clinical Concern/Question 11/11/2024 10:30 AM EDT Office Visit [facility] [address] [place] [address] Carrie James PA Urinary retention (Primary Dx); History of UTI 11/11/2024 Travel 11/06/2024 Telephone [facility] [address] [place] [address] Carrie James PA HCN Clinical Concern/Question; [...] drink first t herminio in the morning (EYE-MECHANICAL OPERATOR) to steady your nerves or to [...] Description 01/06/2025 8:30 AM EDT Office Visit [facility] [address] [place] [address] Carrie James PA [address] [place] [address] Health Maintenance Due Date Last Done Comments [facility]-Medicare Annual Wellness (AWV) 1940 [facility]-/Child/Adol SDOH Screenings 1940 [facility]- SDOH Screenings 1958 [facility]-Adult SDOH Screenings 1958 [facility]-DTaP,Tdap,and Td Vaccines (1 - Tdap) 10/29/1959 [facility]-Pneumococcal Vaccine: 50+ Years (1 of 1 - PCV) 1990 [facility]-Zoster Vaccines (1 of 2) 1990 [facility]-RSV Vaccine: 60+ Years or (1 - 1-dose 75+ series) 10/29/2015 [id number] Vaccine (2024- season) 2024 01/25/2022, 02/09/2021, 07/01/2020, [...] Clinic Collect (11/11/2024 10:38 AM EDT) Pathologist [facility] Culture 10,000 - 100,000 CFU/mL Enterococcus faecalis(A) DEANN 11/13/2024 11:06 AM EDT [facility] Comment:This isolate has bee n identified using the FDA Approved [employer] [place] System Urine Urine specimen obtained by [...] LAB MICROBIOLOGY - GENERAL ORDERABLES Final Result [facility] [address] [place] [address] * (ABNORMAL) POCT URINALYSIS DIPSTICK (11/11/2024 10:11 AM EDT) Pathologist [facility] POCT Urine Color Yellow 11/11/2024 10:13 AM EDT [facility] POCT Urine Clarity Cloudy 11/11/2024 10:13 AM EDT [facility] POCT Urine Glucose Negative Negative mg/dL 11/11/2024 10:13 AM EDT [facility] POCT Urine Bilirubin Negative Negative mg/dL 11/11/2024 10:13 AM EDT [facility] POCT Urine Ketones Negative Negative mg/dL 11/11/2024 10:13 AM EDT [facility] POCT Urine Specific Connelly 1.025 1.005 - 1.030 11/11/2024 10:13 AM EDT [facility] POCT Urine Blood Small(A) Negative 11/11/2024 10:13 AM EDT [facility] POCT pH, Urine 5.5 5.0 - 8.0 11/11/2024 10:13 AM EDT [facility] POCT Protein, Urine 100(A) Negative mg/dL 11/11/2024 10:13 AM EDT [facility] POCT Urobilinogen, Urine 0.2 0.2, 1.0 EU/dL 11/11/2024 10:13 AM EDT [facility] POCT Nitrite, Urine Negative Negative 11/11/2024 10:13 AM EDT [facility] POCT Urine Leukocyte Esterase Moderate(A) Negative 11/11/2024 10:13 AM EDT [facility] Urine 11/11/2024 10:1 1 AM EDT 11/11/2024 10:13 AM EDT Carrie ALVAREZ LAB POINT OF CARE T EST DOCKED DEVICE UNSOLICITED RESULTS Final Result [facility] [address], [place] * POC US Bladder Volume (11/11/2024) Urine, Volume 195 mL IMAGING Anatomical Region Laterality Modality Other Urine 11/11/2024 Carrie ALVAREZ IMG POINT OF CARE ULTRASOUN D Final Result from Last [address] [place] [address] [place] [id number] MEDICARE Advance Directives * Full Code (Latest Code Status on File) Date Activated Date Inactivated Comments 08/22/2024 4:19 PM 08/23/2024 6:07 PM Question Answer Comments I have reviewed the capacity from the link above and, if needed, have updated to appropriate status: Yes Care Teams Dry Molder Relationship Specialty Start Date End Date Ronny Belle MD [facility] [place] [address] PCP - General 07/01/24 Carrie James PA [address] [facility] [address] [place] [address] Physician E M Assembler Urology 11/11/24
--- OUTSIDE RECORDS SUMMARY | 2024-12-15 10:05 | XMS_ITS | Clinical Summary ---
Author Organization [facility] Address [address] [place] [address] Care Team Providers Care Pneumatic Tube Repairer Name Role Phone Ronny Belle MD Primary Care Provider [phone] Allergies No known active allergies Social History [...] Vaccination (#1) 2024 Insurance MEDICARE Care Teams Pneumatic Tube Repairer Relationship Specialty Start Date End Date Ronny Belle MD [address] [place], [place] [id number] PCP - General Family Medicine 04/13/22
--- OUTSIDE RECORDS SUMMARY | 2024-12-15 10:05 | XMS_ITS | Encounter Summary ---
Author Organization Healthcare Address [address] [place] [address] Care Team Providers Care Door To Door Salesperson Name Role Phone Ronny Belle MD Primary Care Provider [phone] Carrie James Unavailable [phone] Reason for Visit * Reason Onset Date Comments HCN Clinical Concern/Question 11/06/2024 HCN Status Update Call #1 11/06/2024 Encounter Details Date Type Department Care Team (Late st Contact Info) Description 11/06/2024 Telephone [facility] [address] [place] [address] Carrie James PA [address] [place] [address] HCN Clinical Concern/Question; HCN Status [...] drink first t herminio in the morning (EYE-SOCIAL WORK ADMINISTRATOR) to steady your nerves or to [...] of the initial request. Best contact number: [phone] Optimal time of day to reach caller: [...] will receive notification of the communication/outcome via Harry [employer] Davidhart. * Telephone Encounter - Carol Briceno LPN [...] backwith info. Thank you Best contact number: [phone] (mobile) Optimal time of day to reach caller: ANYTIME Additional comments/information from caller: None Note: Please do not reply to this message. Follow-up communication and further actions as a result of this message need to be communicated with the patient directly, if the patient is not active onMyChart. If the patient is active on MyChart, they will receive notification of the communication/outcome via [email or web address]@. documented in this encounter Plan of Treatment Upcoming Encounters Date Type Department Care Team (Late st Contact Info) Description 01/06/2025 8:30 AM EDT Office Visit [facility] [address] [place] [address] Carrie James PA [address] [place] [address] documented as of this encounter Visit Diagnoses Not on filedocumented in this encounter Additional Health Concerns Assessment Noted Time A fall risk assessment has been complete d for the patient 09/02/2024 1:40 PM EDT A Body Mass Index follow-up plan has been documented for the patient 09/02/2024 3:48 PM EDT documented as of this encounter Care Teams Door To Door Salesperson Relationship Specialty Start Date End Date Ronny Belle MD [address] [place] [address] PCP - General 07/01/24 Carrie James PA [id number] [place] [address] Physician Admission Discharge Rn Urology 11/11/24 documented as of this encounter
--- OUTSIDE RECORDS SUMMARY | 2024-12-15 10:05 | XMS_ITS | Clinical Summary ---
Author Organization [facility] [place] [address] Care Team Providers Care Pick And Shovel Man Name Role Phone Unavailable Primary Care Provider [...]
--- OUTSIDE RECORDS SUMMARY | 2024-12-15 10:05 | XMS_ITS | Clinical Summary ---
Author Organization [facility] Address [address] [place] [address], [address] [place] [address] Care Team Providers Care Baked And Graphite Inspector Name Role Phone Ronny Belle MD Primary Care Provider [phone] Allergies Active Allergy Reactions Criticality Noted Date [...] complete this topic Insurance MEDICARE Care Teams Baked And Graphite Inspector Relationship Specialty Start Date End Date Ronny Belle MD [address] [place] [address] PCP - General Family Medicine 04/27/22
--- OUTSIDE RECORDS SUMMARY | 2024-12-15 10:06 | XMS_ITS | Encounter Summary ---
Author Organization Healthcare Address [address] [place] [address] Care Team Providers Care Adjustment Supervisor Name Role Phone Ronny Belle MD Primary Care Provider [phone] Carrie James Unavailable [phone] Encounter Details Date Type Department Care Team (Late st Contact Info) Description 11/14/2024 Results Follow-Up [facility] Urology [address] [place] [address] Carrie James PA [address] [place] [address] Social History Tobacco Use Types [...] drink first t herminio in the morning (EYE-CODING QUALITY ANALYST) to steady your nerves or to [...] Description 01/06/2025 8:30 AM EDT Office Visit [facility] [address] [place] [address] Carrie James PA [address] [place] [address] documented as of this encounter Visit Diagnoses Not on filedocumented in this encounter Additional Health Concerns Assessment Noted Time A fall risk assessment has been complete d for the patient 11/11/2024 10:02 AM EDT A Body Mass Index follow-up plan has been documented for the patient 11/21/2024 3:27 PM EDT documented as of this encounter Care Teams Adjustment Supervisor Relationship Specialty Start Date End Date Ronny Belle MD [address] [place] [address] PCP - General 07/01/24 Carrie James PA [address] [place] [address] Physician Production Estimator Urology 11/11/24 documented as of this encounter
--- OUTSIDE RECORDS SUMMARY | 2024-12-15 10:06 | XMS_ITS | Encounter Summary ---
Author Organization [facility] Address [address] [place] [address] Care Team Providers Care Import/Export Specialist Name Role Phone Ronny Belle MD Primary Care Provider [phone] Carrie James Unavailable [phone] Encounter Details Date Type Department Care Team (Latest Contact Info) Description 11/11/2024 Travel Social History Tobacco Use Types Packs/Day Years Used Date Smoking Tobacco: Former Cigarettes 3 67 2 463 - 2021 Smokeless Tobacco: Never Alcohol Use [...] drink first t herminio in the morning (EYE-EMERGENCY MEDCL EMT) to steady your nerves or to get [...] Description 01/06/2025 8:30 AM EDT Office Visit [facility] [address] [place] [address] Carrie James PA [id number] [place] [address] documented as of this encounter Visit Diagnoses Not on filedocumented in this encounter Additional Health Concerns Assessment Noted Time A fall risk assessment has been complete d for the patient 11/11/2024 10:02 AM EDT A Body Mass Index follow-up plan has been documented for the patient 11/21/2024 3:27 PM EDT documented as of this encounter Care Teams Import/Export Specialist Relationship Specialty Start Date End Date Ronny Belle MD [facility] [place] [address] PCP - General 07/01/24 Carrie James PA [address] [place] [address] Physician Head Of Loss Prevention Urology 11/11/24 documented as of this encounter
--- OUTSIDE RECORDS SUMMARY | 2024-12-15 10:06 | XMS_ITS | Encounter Summary ---
Author Organization Healthcare Address [address] [place] [address] Care Team Providers Care Blood And Plasma Laboratory Assistant Name Role Phone Ronny Belle MD Primary Care Provider [phone] Carrie James Unavailable [phone] Reason for Visit * Reason Onset Date Comments HCN Clinical Concern/Question 11/13/2024 Encounter Details Date Type Department Care Team (Late st Contact Info) Description 11/13/2024 Telephone [facility] [address] [place] [address] Carrie James PA [address] [place] [address] HCN Clinical Concern/Question Social History [...] drink first t herminio in the morning (EYE-ORDNANCE TRUCK INSTALLATION SUPERVISOR) to steady your nerves or to [...] of the initial request. Best contact number: [phone] (mobile) Optimal time of day to reach [...] will receive notification of the communication/outcome via Pigafe. * Telephone Encounter - David Novak - 11/13/2024 3:04 PM EDT Pt and pt daughter are wanting results from 11/11. Urine cx * Telephone Encounter - Tara Corral - 11/13/2024 3:01 PM EDT Clinical Concern/Question Reason for Call: pt daughter asking for lab results for patient Best contact number: Other: [phone] Optimal time of day to reach caller: [...] 01/06/2025 8:30 AM EDT Office Visit [facility] Urology [address] [place] [address] Carrie James PA [address] [place] [address] documented as of this encounter Visit Diagnoses Not on filedocumented in this encounter Additional Health Concerns Assessment Noted Time A fall risk assessment has been complete d for the patient 11/11/2024 10:02 AM EDT A Body Mass Index follow-up plan has been documented for the patient 11/21/2024 3:27 PM EDT documented as of this encounter Care Teams Blood And Plasma Laboratory Assistant Relationship Specialty Start Date End Date Ronny Belle MD [address] [place] [address] PCP - General 07/01/24 Carrie James PA [address] [place] [address] Physician Talent Acquisition Consultant Urology 11/11/24 documented as of this encounter
--- OUTSIDE RECORDS SUMMARY | 2024-12-15 10:06 | XMS_ITS | Encounter Summary ---
Author Organization Healthcare Address [address] [place] [address] Care Team Providers Care Military Personnel Specialist Name Role Phone Ronny Belle MD Primary Care Provider [phone] Carrie James Unavailable [phone] Encounter Details Date Type Department Care Team (Late st Contact Info) Description 11/14/2024 Orders Only [facility]rology [address] [place] [address] Carrie James PA [address] [place] [address] Urinary tract infection with hematuria, site unspecified (Primary Dx) Social History Tobacco Use Types Packs/Day Years Used Date Smoking Tobacco: Former Cigarettes 3 67 1 275 - 202 Smokeless Tobacco: Never Alcohol Use [...] drink first t herminio in the morning (EYE-PHOTOCOMPOSING KEYBOARD OPERATOR) to steady your nerves or to [...] Description 01/06/2025 8:30 AM EDT Office Visit [facility] [address] [place] [address] Carrie James PA [id number] [place] [address] documented as of this encounter Visit Diagnoses [...] documented as of this encounter Care Teams Military Personnel Specialist Relationship Specialty Start Date End Date Ronny Belle MD [address] [place] [address] PCP - General 07/01/24 Carrie James PA [address] [facility] [address] [place] [address] Physician Cardiology Technician Urology 11/11/24 documented as of this encounter
--- OUTSIDE RECORDS SUMMARY | 2024-12-15 10:06 | XMS_ITS | Encounter Summary ---
Author Organization Healthcare Address [address] [place] [address] Care Team Providers Care Captain Fishing Vessel Name Role Phone Ronny Belle MD Primary Care Provider [phone] Carrie James Unavailable [phone] Encounter Details Date Type Department Care Team (Late st Contact Info) Description 06/09/2024 Orders Only External Location [address] [place] [address] Provider, External Social History Tobacco Use Types [...] Description 01/06/2025 8:30 AM EDT Office Visit [facility] [address] [place] [phone] Carrie James PA [address] [place] [address] documented as of this encounter Procedures Procedure [...] on filedocumented in this encounter Care Teams Captain Fishing Vessel Relationship Specialty Start Date End Date Ronny Belle MD [address] [place] [address] PCP - General 07/01/24 Carrie James PA [address] [facility] [address] [place] [address] Physician Peoplesoft Developer Urology 11/11/24 documented as of this encounter
[2024-12-15] MEDS: SODIUM CHLORIDE 0.9% 10ML FLUSH SYRINGE 10 ML IV (10:22)
[2024-12-15 10:23] VITALS: BP 127/53; PULSE 89; RESP 16; TEMP 36.8; O2SAT 96
[2024-12-15] MEDS: DAPTOmycin 500 MG in 0.9 % SODIUM CHLORIDE 50 ML 100 MG IV (10:23)
[2024-12-15 10:55] VITALS: BP 121/68; PULSE 85; RESP 16; TEMP 36.8; O2SAT 97
== END 2024-12-15 11:00 | disposition home or self-care (01) ==
LOC: INF 10:04
PROVIDERS: PCP Family Medicine
DX: N39.0 Urinary tract infection, site not specified (principal)
CPT/HCPCS: 96365; J0878

== ENCOUNTER 2024-12-16 10:13 | Outpatient (CLI) | payer MEDICARE, SELFPAY ==
--- OUTSIDE RECORDS SUMMARY | 2024-11-11 10:30 | XMS_ITS | Encounter Summary ---
Author Organization Healthcare Address [address] [place] [address] Care Team Providers Care Cheesemaking Laborer Name Role Phone Ronny Belle MD Primary Care Provider [phone] Carrie James Unavailable [phone] Reason for Visit * Reason Comments Urinary Retention UTI Encounter Details Date Type Department Care Team (Late st Contact Info) Description 11/11/2024 10:30 AM EDT Office Visit [facility] [address], [address] [place] [address] Carrie James PA [address] [place] [address] Urinary retention (Primary Dx); History of UTI Social History Tobacco Use Types Packs/Day Years Used Date Smoking Tobacco: Former Cigarettes 3 67 1 955 - 202 Smokeless Tobacco: Never Tobacco Cessation:Counseling Given: Not Answered Alcohol Use Standard Drinks/Week Comments Never 0 (1 standard drink = 0.6 oz pur e alcohol) PHQ-2 Answer Date Recorded Patient Health Questionnaire-2 Score 2 11/11/2024 CAGE ASSESSMENT Answer Date Recorded Cage unable [...] drink first t herminio in the morning (EYE-LAUNDRY TECH) to steady your nerves or to get [...] Sign Reading Time Taken Comments Blood Pressure 99/61 11/11/2024 9:59 AM EDT Pulse 97 11/11/2024 9:59 AM EDT Temperature - - Respiratory Rate 16 11/11/2024 9:59 AM EDT Oxygen Saturation 92% 11/11/2024 9:59 AM EDT Inhaled Oxygen Concentration - - Weight 105 kg (231 lb) 11/11/2024 9:59 AM EDT Height 175.3 cm (5' 9 ) 11/11/2024 9:59 AM EDT Body Mass Index 34.11 11/11/2024 9:59 AM EDT documented in this encounter Functional Status * Over the past 2 weeks, how often have you been bothered by any of the following problems? Question Answer Date of Assessment Author Little interest or pleasure in doing things Several days 11/11/2024 10:01 AM EDT William Briceno LPN Feeling down, depressed, or hopeless Several days 11/11/2024 10:01 AM EDT Carol Briceno LPN Patient Health Questionnaire-2 Score 2 11/11/2024 10:01 AM EDT Aakash Briceno LPN * How difficult have these problems made it for you to do your work, take care of things at home, or get along with other people? Answer Date of Assessment Author Somewhat difficult 11/11/2024 10:[address], LPN documented as of this encounter Miscellaneous Notes * Progress Notes - Carrie James PA - 11/11/2024 10:30 AM EDT Subjective Patient ID: Celestino Lundy is a 84 y.o. male. Chief Complaint Patient presents with Urinary Retention UTI HPI 84yoM with history of BPH and gross hematuria who underwent TURP with Dr Harman 08/22/24. Patient developed urinary retention after removing catheter at home as instructed on 08/25/24. Catheter was reinserted in the clinic 08/26/24. He then had a successful voiding trial 09/02/24 - Patient follows up today, reports recent hospitalization at OSH with malaise, weakness and UTI. He has completed course of oral abx and concerned he may still have infection He has not had any flank pain or fevers, reports urine to be clear. Latest Reference Range & Units 11/11/24 10:11 POCT Urine Color Yellow POCT Urine Clarity Cloudy POCT Specific [place], Urine 1.005 - 1.030 1.025 POCT Protein, Urine Negative mg/dL 100 ! POCT pH, Urine 5.0 - 8.0 5.5 POCT Glucose Urine Negative mg/dL Negative POCT Bilirubin, Urine Negative mg/dL Negative POCT Ketones, Urine Negative mg/dL Negative POCT Blood, Urine Negative Small ! POCT Urobilinogen, Urine 0.2, 1.0 EU/dL 0.2 POCT Leukocyte Esterase, Urine Negative Moderate ! POCT Nitrite, Urine Negative Negative !: Data is abnormal POC US Bladder Volume Order: [id number] Component Ref Range & Units 10 d ago 2 mo ago Urine, Volume mL 195 616 Objective Physical Exam Constitutional: Appearance: Normal appearance. Pulmonary: Effort: Pulmonary effort is normal. Neurological: Mental Status: He is alert and oriented to person, place, and time. Psychiatric: Mood and Affect: Mood normal. Behavior: Behavior normal. Thought Content: Thought content normal. Celestino was seen today for urinary retention and uti. Diagnoses and all orders for this visit: Urinary retention (Primary) Comments: -PVR is acceptable today, as compared to PVR prior to TURP -continue dutasteride/tamsulosin Orders: - POC US Bladder Volume - Urine Culture - Clinic Collect History of UTI Comments: Just completed Levaquin -repeat urine culture today to assure clearance of UTI -request outside hospital admission records Other orders - POCT URINALYSIS DIPSTICK documented in this encounter Plan of Treatment Upcoming Encounters Date Type Department Care Team (Late st Contact Info) Description 01/06/2025 8:30 AM EDT Office Visit [place] [facility] [address] [place] [address] Carrie James PA [address] [place] [address] documented as of this encounter Procedures Procedure Name Priority Date/Time Associated Diagnosis Comments URINE CULTURE Routine 11/11/2024 10:38 AM EDT Urinary retention POCT URINALYSIS DIPSTICK Routine 11/11/2024 10:11 AM EDT POC US BLADDER SCAN FOR VOLUME Routine 11/11/2024 Urinary retention documented in this encounter Results * (ABNORMAL) Urine Culture - Clinic Collect (11/11/2024 10:38 AM EDT) Culture 10,000 - 100,000 CFU/mL Enterococcus faecalis(A) DEANN 11/13/2024 11:06 AM EDT [facility] Comment:This isolate has bee n identified using the FDA Approved Shoptimiseer [place] System Urine Urine specimen obtained by clean catch procedure / Unknown Non-blood Collection / Unknown 11/11/2024 10:38 AM EDT 11/11/2024 11:14 AM EDT Narrative Organism Antibiotic Method Susceptibility Enterococcus faecalis Ampicillin DEANN 1 ug/ml: Susceptible Enterococcus faecalis Daptomycin DEANN <=1 ug/ml: Susceptible Enterococcus faecalis Gentamicin Synergy , 500 UG/ML DEANN >500 ug/ml: Resistant Comment:Synergy of a minoglycoside with Penicillin is NOT likely. Serious Enterococcal infections require combine therapy with high dose Ampicillin or Vancomycin plus Gentamicin or Streptomycin. Enterococcus faecalis Levofloxacin DEANN >4 ug/ml: Resistant Enterococcus faecalis Linezolid DEANN <=1 ug/ml: Susceptible Enterococcus faecalis Penicillin G DEANN 8 ug/ml: Susceptible Enterococcus faecalis Streptomycin Syner gy, 1000 UG/ML DEANN <=1,000 ug/ml: Susceptible Comment:Synergy of a minoglycoside with Penicillin is likely. Serious Enterococcal infections require combined therapy with high dose Ampicillin or Vancomycin plus Gentamicin or Streptomycin. Enterococcus faecalis Tetracycline DEANN >8 ug/ml: Resistant Enterococcus faecalis Vancomycin DEANN 1 ug/ml: Susceptible Carrie ALVARE[facility] MICROBIOLOGY - GENERAL ORDERABLES Final Result [facility] [address] [place] [address] * (ABNORMAL) POCT URINALYSIS DIPSTICK (11/11/2024 10:11 AM EDT) POCT Urine Color Yellow 11/11/2024 10:13 AM EDT [facility] POCT Urine Clarity Cloudy 11/11/2024 10:13 AM EDT [facility] POCT Urine Glucose Negative Negative mg/dL 11/11/2024 10:13 AM EDT [facility] POCT Urine Bilirubin Negative Negative mg/dL 11/11/2024 10:13 AM EDT [facility] POCT Urine Ketones Negative Negative mg/dL 11/11/2024 10:13 AM EDT [facility]OLOG[facility] POCT Urine Specific [place] 1.025 1.005 - 1.030 11/11/2024 10:13 AM EDT [facility]OLOG[facility] POCT Urine Blood Small(A) Negative 11/11/2024 10:13 AM EDT [facility] POCT pH, Urine 5.5 5.0 - 8.0 11/11/2024 10:13 AM EDT [facility] POCT Protein, Urine 100(A) Negative mg/dL 11/11/2024 10:13 AM EDT [facility] POCT Urobilinogen, Urine 0.2 0.2, 1.0 EU/dL 11/11/2024 10:13 AM EDT [facility] POCT Nitrite, Urine Negative Negative 11/11/2024 10:13 AM EDT [facility] POCT Urine Leukocyte Esterase Moderate(A) Negative 11/11/2024 10:13 AM EDT [facility] Urine 11/11/2024 10:1 1 AM EDT 11/11/2024 10:13 AM EDT Carrie ALVARE[facility] POINT OF CARE T EST DOCKED DEVICE UNSOLICITED RESULTS Final Result [facility] UROLOGY [address] [place], [place] * POC US Bladder Volume (11/11/2024) Urine, Volume 195 mL IMAGING Anatomical Region Laterality Modality Other Urine 11/11/2024 Carrie ALVAREZ IMG POINT OF CARE ULTRASOUN D Final Result documented in this encounter Visit Diagnoses Diagnosis Urinary retention- Primary Unspecified retention of urine History of UTI documented in this encounter Additional Health Concerns Assessment Noted Time A fall risk assessment has been complete d for the patient 11/11/2024 10:02 AM EDT A Body Mass Index follow-up plan has been documented for the patient 11/21/2024 3:27 PM EDT documented as of this encounter Care Teams Cheesemaking Laborer Relationship Specialty Start Date End Date Ronny Belle MD [address] [place] [place] [id number] PCP - General 07/01/24 Carrie James PA [address] [place] [address] Physician Interdisciplinary Professor Urology 11/11/24 documented as of this encounter
--- OUTSIDE RECORDS SUMMARY | 2024-12-16 10:22 | XMS_ITS | Encounter Summary ---
Author Organization Healthcare Address [address] [place] [address] Care Team Providers Care Cabin Worker Name Role Phone Ronny Belle MD Primary Care Provider [phone] Carrie James Unavailable [phone] Encounter Details Date Type Department Care Team (Late st Contact Info) Description 11/14/2024 Results Follow-Up [facility]rology [address] [place] [address] Carrie James PA [address] [place] [address] Social History Tobacco Use [...] drink first t herminio in the morning (EYE-FINANCIAL REP) to steady your nerves or to get [...] Description 01/06/2025 8:30 AM EDT Office Visit [place] [facility] [address] [place] [address] Carrie James PA [address] [place] [address] documented as of this encounter Visit Diagnoses Not on filedocumented in this encounter Additional Health Concerns Assessment Noted Time A fall risk assessment has been complete d for the patient 11/11/2024 10:02 AM EDT A Body Mass Index follow-up plan has been documented for the patient 11/21/2024 3:27 PM EDT documented as of this encounter Care Teams Cabin Worker Relationship Specialty Start Date End Date Ronny Belle MD [address] [place] [address] PCP - General 07/01/24 Carrie James PA [address] [place] [address] Physician Well Head Pumper Urology 11/11/24 documented as of this encounter
--- OUTSIDE RECORDS SUMMARY | 2024-12-16 10:22 | XMS_ITS | Clinical Summary ---
Author Organization [facility] Address [address] [place] [address], [address] [place] [address] Care Team Providers Care Prospect Manager Name Role Phone Ronny Belle MD Primary Care Provider [phone] Allergies Active Allergy Reactions Criticality Noted Date [...] complete this topic Insurance MEDICARE Care Teams Prospect Manager Relationship Specialty Start Date End Date Ronny Belle MD [address] [place] [address] PCP - General Family Medicine 04/27/22
--- OUTSIDE RECORDS SUMMARY | 2024-12-16 10:22 | XMS_ITS | Encounter Summary ---
Author Organization Healthcare Address [address] [place] [address] Care Team Providers Care Social Work Job Titles Name Role Phone Ronny Belle MD Primary Care Provider [phone] Carrie James Unavailable [phone] Encounter Details Date Type Department Care Team (Late st Contact Info) Description 11/14/2024 Orders Only [facility] [address] [place] [address] Carrie James PA [address] [place] [address] Urinary tract infection with hematuria, site unspecified (Primary Dx) Social History Tobacco Use Types Packs/Day Years Used Date Smoking Tobacco: Former Cigarettes 3 67 1 325 - 202 Smokeless Tobacco: Never Alcohol Use [...] drink first t herminio in the morning (EYE-GEAR MACHINE OPERATOR GENERAL) to steady your nerves or to get [...] Description 01/06/2025 8:30 AM EDT Office Visit [facility] [address] [place] [address] Carrie James PA [id number] [place] [address] documented as of this encounter Visit Diagnoses [...] documented as of this encounter Care Teams Social Work Job Titles Relationship Specialty Start Date End Date Ronny Belle MD [address] [place] [address] PCP - General 07/01/24 Carrie James PA [address] [facility] [address] [place] [address] Physician Quality Improvement Manager Urology 11/11/24 documented as of this encounter
--- OUTSIDE RECORDS SUMMARY | 2024-12-16 10:22 | XMS_ITS | Encounter Summary ---
Author Organization Healthcare Address [address] [place] [address] Care Team Providers Care Industrial Tech Instructor Name Role Phone Ronny Belle MD Primary Care Provider [phone] Carrie James Unavailable [phone] Reason for Visit * Reason Onset Date Comments HCN Clinical Concern/Question 11/13/2024 Encounter Details Date Type Department Care Team (Late st Contact Info) Description 11/13/2024 Telephone [facility] [address] [place] [address] Carrie James PA [address] [place] [address] HCN Clinical Concern/Question Social History [...] drink first t herminio in the morning (EYE-TIN CAN LABORER) to steady your nerves or to get [...] of the initial request. Best contact number: [phone] (mobile) Optimal time of day to reach [...] will receive notification of the communication/outcome via Fit with Friends. * Telephone Encounter - David Novak - 11/13/2024 3:04 PM EDT Pt and pt daughter are wanting results from 11/11. Urine cx * Telephone Encounter - Tara Corral - 11/13/2024 3:01 PM EDT Clinical Concern/Question Reason for Call: pt daughter asking for lab results for patient Best contact number: Other: [phone] Optimal time of day to reach caller: [...] Description 01/06/2025 8:30 AM EDT Office Visit [facility] Urology [address] [place] [address] Carrie James PA [address] [place] [address] documented as of this encounter Visit Diagnoses Not on filedocumented in this encounter Additional Health Concerns Assessment Noted Time A fall risk assessment has been complete d for the patient 11/11/2024 10:02 AM EDT A Body Mass Index follow-up plan has been documented for the patient 11/21/2024 3:27 PM EDT documented as of this encounter Care Teams Industrial Tech Instructor Relationship Specialty Start Date End Date Ronny Belle MD [address] [place] [address] PCP - General 07/01/24 Carrie James PA [address] [place] [address] Physician Lead Recreation Assistant Urology 11/11/24 documented as of this encounter
--- OUTSIDE RECORDS SUMMARY | 2024-12-16 10:22 | XMS_ITS | Clinical Summary ---
Author Organization [facility] Address [address] [place] [address] Care Team Providers Care Printing Agent Name Role Phone Ronny Belle MD Primary Care Provider Allergies No known active allergies Social History [...] Vaccination (#1) 2024 Insurance MEDICARE Care Teams Printing Agent Relationship Specialty Start Date End Date Ronny Belle MD [address] [place], [place] [id number] PCP - General Family Medicine 04/13/22
--- OUTSIDE RECORDS SUMMARY | 2024-12-16 10:23 | XMS_ITS | Encounter Summary ---
Author Organization Healthcare Address [address] [place] [address] Care Team Providers Care Hepatology Physician Name Role Phone Ronny Belle MD Primary Care Provider [phone] Carrie James Unavailable [phone] Reason for Visit * Reason Onset Date Comments HCN Clinical Concern/Question 11/06/2024 HCN Status Update Call #1 11/06/2024 Encounter Details Date Type Department Care Team (Late st Contact Info) Description 11/06/2024 Telephone [place] [facility] [address] [place] [address] Carrie James PA [address] [place] [address] HCN Clinical Concern/Question; HCN Status [...] drink first t herminio in the morning (EYE-PATCHER BOWLING BALL) to steady your nerves or to get [...] of the initial request. Best contact number: [phone] Optimal time of day to reach caller: [...] will receive notification of the communication/outcome via [employer]. * Telephone Encounter - Carol Briceno LPN [...] backwith info. Thank you Best contact number: [phone] (mobile) Optimal time of day to reach caller: ANYTIME Additional comments/information from caller: None Note: Please do not reply to this message. Follow-up communication and further actions as a result of this message need to be communicated with the patient directly, if the patient is not active onMyChart. If the patient is active on MyChart, they will receive notification of the communication/outcome via [employer]. documented in this encounter Plan of Treatment Upcoming Encounters Date Type Department Care Team (Late st Contact Info) Description 01/06/2025 8:30 AM EDT Office Visit [place] [facility] [address] [place] [address] Carrie James PA [address] [place] [address] documented as of this encounter Visit Diagnoses Not on filedocumented in this encounter Additional Health Concerns Assessment Noted Time A fall risk assessment has been complete d for the patient 09/02/2024 1:40 PM EDT A Body Mass Index follow-up plan has been documented for the patient 09/02/2024 3:48 PM EDT documented as of this encounter Care Teams Hepatology Physician Relationship Specialty Start Date End Date Ronny Belle MD [address] [place] [address] PCP - General 07/01/24 Carrie James PA [id number] [place] [address] Physician Locksmith Apprentice Urology 11/11/24 documented as of this encounter
--- OUTSIDE RECORDS SUMMARY | 2024-12-16 10:23 | XMS_ITS | Encounter Summary ---
Author Organization Healthcare Address [address] [place] [address] Care Team Providers Care Tin Tie Machine Operator Automatic Name Role Phone Ronny Belle MD Primary Care Provider [phone] Carrie James Unavailable [phone] Reason for Visit * Reason Onset Date Comments Confirmed Chanegs 12/05/2024 Encounter Details Date Type Department Care Team (Late st Contact Info) Description 12/05/2024 Telephone [place] [facility] [address] [place] [address] Carrie James PA [address] [place] [address] Confirmed [place] Social History Tobacco Use Types Packs/Day Years Used Date Smoking Tobacco: Former Cigarettes 3 67 1 654 - 2022 Smokeless Tobacco: Never Alcohol Use [...] drink first t herminio in the morning (EYE-HEARING AND SPEECH ASSISTANT) to steady your nerves or to get [...] at 8:30 am with ES in the [facility] at [facility], , [facility] [address] documented in this encounter Plan of Treatment Upcoming Encounters Date Type Department Care Team (Late st Contact Info) Description 01/06/2025 8:30 AM EDT Office Visit [facility] Urology [address] [place] [address] Carrie James PA [facility] [address] [address] documented as of this encounter Visit Diagnoses Not on filedocumented in this encounter Additional Health Concerns Assessment Noted Time A fall risk assessment has been complete d for the patient 11/11/2024 10:02 AM EDT A Body Mass Index follow-up plan has been documented for the patient 11/21/2024 3:27 PM EDT documented as of this encounter Care Teams Tin Tie Machine Operator Automatic Relationship Specialty Start Date End Date Ronny Belle MD [address] [place] [address] PCP - General 07/01/24 Carrie James PA [address] [place] [address] Physician Packager Machine Urology 11/11/24 documented as of this encounter
--- OUTSIDE RECORDS SUMMARY | 2024-12-16 10:23 | XMS_ITS | Encounter Summary ---
Author Organization Healthcare Address [address] [place] [address] Care Team Providers Care Carder Blankets Name Role Phone Ronny Belle MD Primary Care Provider [phone] Carrie James Unavailable [phone] Encounter Details Date Type Department Care Team (Late st Contact Info) Description 06/09/2024 Orders Only External Location [address] [place] [address] Provider, External Social History Tobacco Use Types [...] Office Visit [place] [facility] [address] [place] [address] Carrie James PA [address] [place] [address] documented as of this encounter Procedures Procedure [...] on filedocumented in this encounter Care Teams Carder Blankets Relationship Specialty Start Date End Date Ronny Belle MD [address] [place] [address] PCP - General 07/01/24 Carrie James PA [address] [facility] [address] [place] [address] Physician Registry Nurse Urology 11/11/24 documented as of this encounter
--- OUTSIDE RECORDS SUMMARY | 2024-12-16 10:23 | XMS_ITS | Clinical Summary ---
Author Organization [facility] [place] [address] Care Team Providers Care Used Car Salesperson Name Role Phone Unavailable Primary Care Provider [...]
--- OUTSIDE RECORDS SUMMARY | 2024-12-16 10:23 | XMS_ITS | Clinical Summary ---
Author Organization [facility] Address [address] [place] [address] Care Team Providers Care Health Educator Name Role Phone Ronny Belle MD Primary Care Provider [phone] Carrie James Unavailable [phone] Allergies Active Allergy Reactions Criticality Noted Date [...] needed for headaches, pain or fever. Under [place] law, monthly prescriptions (30 days) can be [...] Type Department Care Team Description 12/05/2024 Telephone [facility] Urology [address] [place] [address] Carrie James PA Confirmed Chanegs 11/14/2024 Results Follow-Up [facility] Urology [address] [place] [address] Carrie James PA 11/14/2024 Orders Only [facility] Urology [address] [place] [address] Carrie James PA Urinary tract infection with hematuria, site unspecified (Primary Dx) 11/13/2024 Telephone [facility] Urology [address] [place] [address] Carrie James PA HCN Clinical Concern/Question 11/11/2024 10:30 AM EDT Office Visit [facility] Urology [address] [place] [address] Carrie James PA Urinary retention (Primary Dx); History of UTI 11/11/2024 Travel 11/06/2024 Telephone [facility] Urology [address] [place] [address] Carrie James PA HCN Clinical Concern/Question; [...] drink first t herminio in the morning (EYE-MEETING FACILITATOR) to steady your nerves or to get [...] Description 01/06/2025 8:30 AM EDT Office Visit [place] [facility] [address] [place] [address] Carrie James PA [address] [place] [address] Health Maintenance Due Date Last Done Comments [facility]-Medicare Annual Wellness (AWV) 1940 [facility]-/Child/Adol SDOH Screenings 1940 [facility]- SDOH Screenings 1958 [facility]-Adult SDOH Screenings 1958 [facility]-DTaP,Tdap,and Td Vaccines (1 - Tdap) 10/29/1959 [facility]-Pneumococcal Vaccine: 50+ Years (1 of 1 - PCV) 1990 [facility]-Zoster Vaccines (1 of 2) 1990 [facility]-RSV Vaccine: 60+ Years or (1 - 1-dose 75+ series) 10/29/2015 [id number] Vaccine (2024- season) 2024 01/25/2022, 02/09/2021, 07/01/2020, [...] Clinic Collect (11/11/2024 10:38 AM EDT) Pathologist [facility] Culture 10,000 - 100,000 CFU/mL Enterococcus faecalis(A) DEANN 11/13/2024 11:06 AM EDT [facility] Comment:This isolate has bee n identified using the FDA Approved VisualOner CA System Urine Urine specimen obtained by [...] Final Result [facility] [address] [place] [address] * (ABNORMAL) POCT URINALYSIS DIPSTICK (11/11/2024 10:11 AM EDT) Pathologist [facility] POCT Urine Color Yellow 11/11/2024 10:13 AM EDT [facility] POCT Urine Clarity Cloudy 11/11/2024 10:13 AM EDT [facility] POCT Urine Glucose Negative Negative mg/dL 11/11/2024 10:13 AM EDT [facility] POCT Urine Bilirubin Negative Negative mg/dL 11/11/2024 10:13 AM EDT [facility] POCT Urine Ketones Negative Negative mg/dL 11/11/2024 10:13 AM EDT [facility] POCT Urine Specific [place] 1.025 1.005 - 1.030 11/11/2024 10:13 AM EDT [facility] POCT Urine Blood Small(A) Negative 11/11/2024 10:13 AM EDT [facility] POCT pH, Urine 5.5 5.0 - 8.0 11/11/2024 10:13 AM EDT [facility] POCT Protein, Urine 100(A) Negative mg/dL 11/11/2024 10:13 AM EDT [facility] POCT Urobilinogen, Urine 0.2 0.2, 1.0 EU/dL 11/11/2024 10:13 AM EDT [facility] POCT Nitrite, Urine Negative Negative 11/11/2024 10:13 AM EDT [facility] POCT Urine Leukocyte Esterase Moderate(A) Negative 11/11/2024 10:13 AM EDT [facility] Urine 11/11/2024 10:1 1 AM EDT 11/11/2024 10:13 AM EDT Carrie ALVARE[facility] LAB POINT OF CARE T EST DOCKED DEVICE UNSOLICITED RESULTS Final Result [facility] [address], [place] * POC US Bladder Volume (11/11/2024) Urine, Volume 195 mL IMAGING Anatomical Region Laterality Modality Other Urine 11/11/2024 Carrie ALVAREZ IMG POINT OF CARE ULTRASOUN D Final Result from Last [address] [place] [address] [place] [address] MEDICARE Advance Directives * Full Code (Latest Code Status on File) Date Activated Date Inactivated Comments 08/22/2024 4:19 PM 08/23/2024 6:07 PM Question Answer Comments I have reviewed the capacity from the link above and, if needed, have updated to appropriate status: Yes Care Teams Health Educator Relationship Specialty Start Date End Date Ronny Belle MD [facility] [place] [address] PCP - General 07/01/24 Carrie James PA [address] [facility] [address] [place] [address] Physician Hat Braider Urology 11/11/24
--- OUTSIDE RECORDS SUMMARY | 2024-12-16 10:23 | XMS_ITS | Encounter Summary ---
Author Organization [facility] Address [address] [place] [address] Care Team Providers Care Personal Attendant Name Role Phone Ronny Belle MD Primary Care Provider [phone] Carrie James Unavailable [phone] Encounter Details Date Type Department Care Team (Latest Contact Info) Description 11/11/2024 Travel Social History Tobacco Use Types Packs/Day Years Used Date Smoking Tobacco: Former Cigarettes 3 67 3 039 - 2021 Smokeless Tobacco: Never Alcohol Use [...] drink first t herminio in the morning (EYE-ACCOUNTING OFFICER) to steady your nerves or to [...] Several days 11/11/2024 10:01 AM EDT William Briecno LPN Feeling down, depressed, or hopeless Several [...] Description 01/06/2025 8:30 AM EDT Office Visit [facility] Urology [address] [place] [address] Carrie James PA [id number] [place] [address] documented as of this encounter Visit Diagnoses Not on filedocumented in this encounter Additional Health Concerns Assessment Noted Time A fall risk assessment has been complete d for the patient 11/11/2024 10:02 AM EDT A Body Mass Index follow-up plan has been documented for the patient 11/21/2024 3:27 PM EDT documented as of this encounter Care Teams Personal Attendant Relationship Specialty Start Date End Date Ronny Belle MD [facility] [place] [address] PCP - General 07/01/24 Carrie James PA [address] [place] [address] Physician Trains Dispatcher Supervisor Urology 11/11/24 documented as of this encounter
[2024-12-16 10:43] VITALS: BP 168/72; PULSE 89; RESP 20; TEMP 37.2; O2SAT 96
[2024-12-16] MEDS: DAPTOmycin 500 MG in 0.9 % SODIUM CHLORIDE 50 ML 100 MG IV (10:43)
[2024-12-16] MEDS: SODIUM CHLORIDE 0.9% 10ML FLUSH SYRINGE 10 ML IV (10:43)
[2024-12-16 11:25] VITALS: BP 155/79; PULSE 88; RESP 20; O2SAT 97
== END 2024-12-16 11:25 | disposition home or self-care (01) ==
LOC: INF 10:13
PROVIDERS: PCP Family Medicine
DX: N39.0 Urinary tract infection, site not specified (principal)
CPT/HCPCS: 96365; J0878

== ENCOUNTER 2024-12-17 09:50 | Outpatient (CLI) | payer MEDICARE, SELFPAY ==
--- OUTSIDE RECORDS SUMMARY | 2024-11-11 10:30 | XMS_ITS | Encounter Summary ---
Author Organization Healthcare Address [address] [place] [address] Care Team Providers Care Solutions Sales Consultant Name Role Phone Ronny Belle MD Primary Care Provider [phone] Carrie James Unavailable [phone] Reason for Visit * Reason Comments Urinary Retention UTI Encounter Details Date Type Department Care Team (Late st Contact Info) Description 11/11/2024 10:30 AM EDT Office Visit [place] [facility] [address] [place] [address] Carrie James PA [address] [place] [address] Urinary retention (Primary Dx); History [...] drink first t herminio in the morning (EYE-ENTRY LEVEL BUYER) to steady your nerves or to get [...] Yellow POCT Urine Clarity Cloudy POCT Specific [place], Urine 1.005 - 1.030 1.025 POCT Protein, [...] is abnormal POC US Bladder Volume Order: [id number] Component Ref Range & Units 10 d [...] Office Visit [place] [facility] [address] [place] [address] Carrie James PA [address] [place] [address] documented as of this encounter [...] Enterococcus faecalis(A) DEANN 11/13/2024 11:06 AM EDT [facility] Comment:This isolate has bee n identified using the FDA Approved Proxim Wirelesser [place] System Urine Urine specimen obtained by [...] LAB MICROBIOLOGY - GENERAL ORDERABLES Final Result [facility] [address] [place] [address] * (ABNORMAL) POCT URINALYSIS DIPSTICK (11/11/2024 10:11 AM EDT) POCT Urine Color Yellow 11/11/2024 10:[address] [facility] POCT Urine Clarity Cloudy 11/11/2024 10:[address] [facility] POCT Urine Glucose Negative Negative mg/dL 11/11/2024 10:[address] [facility] POCT Urine Bilirubin Negative Negative mg/dL 11/11/2024 10:[address] [facility] POCT Urine Ketones Negative Negative mg/dL 11/11/2024 10:[address] [facility] POCT Urine Specific [place] 1.025 1.005 - 1.030 11/11/2024 10:[address] [facility] POCT Urine Blood Small(A) Negative 11/11/2024 10:[address] [facility] POCT pH, Urine 5.5 5.0 - 8.0 11/11/2024 10:[address] [facility] POCT Protein, Urine 100(A) Negative mg/dL 11/11/2024 10:[address] [facility] POCT Urobilinogen, Urine 0.2 0.2, 1.0 EU/dL 11/11/2024 10:[address] [facility] POCT Nitrite, Urine Negative Negative 11/11/2024 10:[address] [facility] POCT Urine Leukocyte Esterase Moderate(A) Negative 11/11/2024 10:[address] [facility] Urine 11/11/2024 10:1 1 AM EDT 11/11/2024 10:13 AM EDT Carrie ALVARE[facility] POINT OF CARE T EST DOCKED DEVICE UNSOLICITED RESULTS Final Result [facility] [address] [place], [place] * POC US Bladder Volume (11/11/2024) [...] documented as of this encounter Care Teams Solutions Sales Consultant Relationship Specialty Start Date End Date Ronny Belle MD [address] [place] [id number] PCP - General 07/01/24 Carrie James PA [address] [place] [address] Physician Media Planner Urology 11/11/24 documented as of this encounter
--- OUTSIDE RECORDS SUMMARY | 2024-12-19 09:53 | XMS_ITS | Encounter Summary ---
Author Organization [facility] Address [address] [place] [address] Care Team Providers Care Spanish Interpreter Name Role Phone Ronny Belle MD Primary Care Provider [phone] Carrie James Unavailable [phone] Encounter Details Date Type Department Care Team (Latest Contact Info) Description 11/11/2024 Travel Social History Tobacco Use Types Packs/Day Years Used Date Smoking Tobacco: Former Cigarettes 3 67 3 706 - 2021 Smokeless Tobacco: Never Alcohol Use [...] drink first t herminio in the morning (EYE-DAIRY POWDER MIXER OPERATOR) to steady your nerves or to [...] [facility] [address] [place] [address] Carrie James PA [id number] [place] [address] documented as of this encounter Visit Diagnoses Not on filedocumented in this encounter Additional Health Concerns Assessment Noted Time A fall risk assessment has been complete d for the patient 11/11/2024 10:02 AM EDT A Body Mass Index follow-up plan has been documented for the patient 11/21/2024 3:27 PM EDT documented as of this encounter Care Teams Spanish Interpreter Relationship Specialty Start Date End Date Ronny Belle MD [facility] [place] [address] PCP - General 07/01/24 Carrie James PA [address] [place] [address] Physician Camp Nurse Urology 11/11/24 documented as of this encounter
--- OUTSIDE RECORDS SUMMARY | 2024-12-19 09:53 | XMS_ITS | Encounter Summary ---
Author Organization Healthcare Address [address] [place] [address] Care Team Providers Care Hydroblaster Name Role Phone Ronny Belle MD Primary Care Provider [phone] Carrie James Unavailable [phone] Encounter Details Date Type Department Care Team (Late st Contact Info) Description 11/14/2024 Results Follow-Up [facility] Urology [address] [place] [address] Carrie James PA [address] [place] [address] Social History Tobacco Use Types [...] drink first t herminio in the morning (EYE-POLISHER HAND) to steady your nerves or to [...] Description 01/06/2025 8:30 AM EDT Office Visit [facility] [address], [address] [place] [address] Carrie James PA [address] [place] [address] documented as of this encounter Visit Diagnoses Not on filedocumented in this encounter Additional Health Concerns Assessment Noted Time A fall risk assessment has been complete d for the patient 11/11/2024 10:02 AM EDT A Body Mass Index follow-up plan has been documented for the patient 11/21/2024 3:27 PM EDT documented as of this encounter Care Teams Hydroblaster Relationship Specialty Start Date End Date Ronny Belle MD [address] [place] [address] PCP - General 07/01/24 Carrie James PA [address] [place] [address] Physician Director Of Consumer Marketing Urology 11/11/24 documented as of this encounter
--- OUTSIDE RECORDS SUMMARY | 2024-12-19 09:53 | XMS_ITS | Encounter Summary ---
Author Organization Healthcare Address [address] [place] [address] Care Team Providers Care Regional Clinical Research Associate Name Role Phone Ronny Belle MD Primary Care Provider [phone] Carrie James Unavailable [phone] Reason for Visit * Reason Onset Date Comments HCN Clinical Concern/Question 11/13/2024 Encounter Details Date Type Department Care Team (Late st Contact Info) Description 11/13/2024 Telephone [place] [facility] [address] [place] [address] Carrie James PA [address] [place] [address] HCN Clinical Concern/Question Social History [...] drink first t herminio in the morning (EYE-THEATRICAL PERFORMER) to steady your nerves or to get [...] of the initial request. Best contact number: [phone] (mobile) Optimal time of day to reach [...] will receive notification of the communication/outcome via [employer]. * Telephone Encounter - David Novak - 11/13/2024 3:04 PM EDT Pt and pt daughter are wanting results from 11/11. Urine cx * Telephone Encounter - Tara Corarl - 11/13/2024 3:01 PM EDT Clinical Concern/Question Reason for Call: pt daughter asking for lab results for patient Best contact number: Other: [phone] Optimal time of day to reach caller: [...] Description 01/06/2025 8:30 AM EDT Office Visit [facility] Urology [address] [place] [address] Carrie James PA [address] [place] [address] documented as of this encounter Visit Diagnoses Not on filedocumented in this encounter Additional Health Concerns Assessment Noted Time A fall risk assessment has been complete d for the patient 11/11/2024 10:02 AM EDT A Body Mass Index follow-up plan has been documented for the patient 11/21/2024 3:27 PM EDT documented as of this encounter Care Teams Regional Clinical Research Associate Relationship Specialty Start Date End Date Ronny Belle MD [address] [place] [address] PCP - General 07/01/24 Carrie James PA [address] [place] [address] Physician Heat Treater Head Urology 11/11/24 documented as of this encounter
--- OUTSIDE RECORDS SUMMARY | 2024-12-19 09:53 | XMS_ITS | Encounter Summary ---
Author Organization Healthcare Address [address] [place] [address] Care Team Providers Care Hydraulic Tester Name Role Phone Ronny Belle MD Primary Care Provider [phone] Carrie James Unavailable [phone] Encounter Details Date Type Department Care Team (Late st Contact Info) Description 06/09/2024 Orders Only External Location [address] [place] [address] Provider, External Social History Tobacco Use Types [...] Description 01/06/2025 8:30 AM EDT Office Visit [place] [facility] [address] [place] [address] Carrie James PA [address] [place] [address] documented as of this encounter Procedures Procedure [...] on filedocumented in this encounter Care Teams Hydraulic Tester Relationship Specialty Start Date End Date Ronny Belle MD [address] [place] [address] PCP - General 07/01/24 Carrie James PA [address] [place] [address] [place] [address] Physician Security Officer Supervisor Urology 11/11/24 documented as of this encounter
--- OUTSIDE RECORDS SUMMARY | 2024-12-19 09:53 | XMS_ITS | Clinical Summary ---
Author Organization [facility] Address [address] [place] [address], [address] [place] [address] Care Team Providers Care Adjustment Examiner Name Role Phone Ronny Belle MD Primary Care Provider [phone] Allergies Active Allergy Reactions Criticality Noted Date [...] yrs+ (1 - 1-dose 75+ series) 10/29/2015 Flu vaccine (#1) 11/07/2024 COVID-19 Vaccine ( - 2023-2 5 season) 2024 Polio vaccine Aged Out No longer elig ible based on patient's age to complete this topic Insurance MEDICARE Care Teams Adjustment Examiner Relationship Specialty Start Date End Date Ronny Belle MD [address] [place] [address] PCP - General Family Medicine 04/27/22
--- OUTSIDE RECORDS SUMMARY | 2024-12-19 09:53 | XMS_ITS | Encounter Summary ---
Author Organization Healthcare Address [address] [place] [address] Care Team Providers Care Call Center Specialist Name Role Phone Ronny Belle MD Primary Care Provider [phone] Carrie James Unavailable [phone] Reason for Visit * Reason Onset Date Comments Confirmed Chanegs 12/05/2024 Encounter Details Date Type Department Care Team (Late st Contact Info) Description 12/05/2024 Telephone [facility] [address] [place] [address] Carrie James PA [address] [place] [address] Confirmed Baylee Social History Tobacco Use Types Packs/Day Years Used Date Smoking Tobacco: Former Cigarettes 3 67 1 623 - 2022 Smokeless Tobacco: Never Alcohol Use [...] drink first t herminio in the morning (EYE-DEVELOPMENT TEAM LEAD) to steady your nerves or to get [...] at 8:30 am with ES in the [facility] at 0 [facility], , [facility] [address] documented in this encounter Plan of Treatment Upcoming Encounters Date Type Department Care Team (Late st Contact Info) Description 01/06/2025 8:30 AM EDT Office Visit [facility] Urology [address] [place] [address] Carrie James PA [facility] [address] [address] documented as of this encounter Visit Diagnoses Not on filedocumented in this encounter Additional Health Concerns Assessment Noted Time A fall risk assessment has been complete d for the patient 11/11/2024 10:02 AM EDT A Body Mass Index follow-up plan has been documented for the patient 11/21/2024 3:27 PM EDT documented as of this encounter Care Teams Call Center Specialist Relationship Specialty Start Date End Date Ronny Belle MD [address] [place] [address] PCP - General 07/01/24 Carrei James PA [address] [place] [address] Physician Architectural Renderer Urology 11/11/24 documented as of this encounter
--- OUTSIDE RECORDS SUMMARY | 2024-12-19 09:53 | XMS_ITS | Encounter Summary ---
Author Organization Healthcare Address [address] [place] [address] Care Team Providers Care Dado Operator Name Role Phone Ronny Belle MD Primary Care Provider [phone] Carrie James Unavailable [phone] Encounter Details Date Type Department Care Team (Late st Contact Info) Description 11/14/2024 Orders Only [facility] Urology [address] [place] [address] Carrie Jamse PA [address] [place] [address] Urinary tract infection with hematuria, site unspecified (Primary Dx) Social History Tobacco Use Types Packs/Day Years Used Date Smoking Tobacco: Former Cigarettes 3 67 1 475 - 202 Smokeless Tobacco: Never Alcohol Use [...] drink first t herminio in the morning (EYE-CEMENT STORAGE WORKER) to steady your nerves or to get [...] Office Visit [facility] [address] [place] [address] Carrie James PA [id number] [place] [address] documented as of this encounter Visit Diagnoses [...] documented as of this encounter Care Teams Dado Operator Relationship Specialty Start Date End Date Ronny Belle MD [address] [place] [address] PCP - General 07/01/24 Carrie James PA [address] [facility] [address] [place] [address] Physician Coding Director Urology 11/11/24 documented as of this encounter
--- OUTSIDE RECORDS SUMMARY | 2024-12-19 09:53 | XMS_ITS | Clinical Summary ---
Author Organization [facility] [place] [address] Care Team Providers Care Outpatient Phlebotomist Name Role Phone Unavailable Primary Care Provider [...]
--- OUTSIDE RECORDS SUMMARY | 2024-12-19 09:53 | XMS_ITS | Clinical Summary ---
Author Organization [facility] Address [address] [place] [address] Care Team Providers Care Sole Blacker Name Role Phone Ronny Belle MD Primary Care Provider [phone] Allergies No known active allergies Social History [...] Vaccination (#1) 2024 Insurance MEDICARE Care Teams Sole Blacker Relationship Specialty Start Date End Date Ronny Belle MD [address] [place], [place] [address] PCP - General Family Medicine 04/13/22
--- OUTSIDE RECORDS SUMMARY | 2024-12-19 09:53 | XMS_ITS | Encounter Summary ---
Author Organization Healthcare Address [address] [place] [address] Care Team Providers Care Wire Bender Hand Name Role Phone Ronny Belle MD Primary Care Provider [phone] Carrie James Unavailable [phone] Reason for Visit * Reason Onset Date Comments HCN Clinical Concern/Question 11/06/2024 HCN Status Update Call #1 11/06/2024 Encounter Details Date Type Department Care Team (Late st Contact Info) Description 11/06/2024 Telephone [facility] [address] [place] [address] Carrie James PA [address] [place] [address] HCN Clinical Concern/Question; HCN Status [...] drink first t herminio in the morning (EYE-MOLDER HELPER) to steady your nerves or to get [...] of the initial request. Best contact number: [phone] Optimal time of day to reach caller: [...] will receive notification of the communication/outcome via [employer]. * Telephone Encounter - Carol Briceno LPN [...] backwith info. Thank you Best contact number: [phone] (mobile) Optimal time of day to reach caller: ANYTIME Additional comments/information from caller: None Note: Please do not reply to this message. Follow-up communication and further actions as a result of this message need to be communicated with the patient directly, if the patient is not active onMyChart. If the patient is active on MyChart, they will receive notification of the communication/outcome via [employer]. documented in this encounter Plan of Treatment Upcoming Encounters Date Type Department Care Team (Late st Contact Info) Description 01/06/2025 8:30 AM EDT Office Visit [facility] [address] [place] [address] Carrie James PA [address] [place] [address] documented as of this encounter Visit Diagnoses Not on filedocumented in this encounter Additional Health Concerns Assessment Noted Time A fall risk assessment has been complete d for the patient 09/02/2024 1:40 PM EDT A Body Mass Index follow-up plan has been documented for the patient 09/02/2024 3:48 PM EDT documented as of this encounter Care Teams Wire Bender Hand Relationship Specialty Start Date End Date Ronny Belle MD [address] [place] [address] PCP - General 07/01/24 Carrie James PA [id number] [place] [address] Physician Cloth Opener Hand Urology 11/11/24 documented as of this encounter
--- OUTSIDE RECORDS SUMMARY | 2024-12-19 09:53 | XMS_ITS | Clinical Summary ---
Author Organization [facility] Address [address] [place] [address] Care Team Providers Care English Composition Instructor Name Role Phone Ronny Belle MD Primary Care Provider Carrie James Unavailable [phone] Allergies Active Allergy Reactions Criticality Noted Date [...] needed for headaches, pain or fever. Under [place] law, monthly prescriptions (30 days) can be [...] Type Department Care Team Description 12/05/2024 Telephone [facility] Urology [address] [place] [phone] Carrie James PA Confirmed Chanegs 11/14/2024 Results Follow-Up [facility] Urology [address] [place] [phone] Carrie James PA 11/14/2024 Orders Only [facility] Urology [address] [place] [phone] Carrie James PA Urinary tract infection with hematuria, site unspecified (Primary Dx) 11/13/2024 Telephone [facility] Urology [address] [place] [phone] Carrie James PA HCN Clinical Concern/Question 11/11/2024 10:30 AM EDT Office Visit [facility] Urology [address] [place] [phone] Carrie James PA Urinary retention (Primary Dx); History of UTI 11/11/2024 Travel 11/06/2024 Telephone [facility] Urology [address] [place] [phone] Carrie James PA HCN Clinical Concern/Question; [...] drink first t herminio in the morning (EYE-MIXING TECHNICIAN) to steady your nerves or to get [...] Office Visit [place] [facility] [address] [place] [address] Carrie James PA [address] [place] [address] Health Maintenance Due Date Last Done Comments [facility]-Medicare Annual Wellness (AWV) 1940 [facility]-/Child/Adol SDOH Screenings 1940 [facility]- SDOH Screenings 1958 [facility]-Adult SDOH Screenings 1958 [facility]-DTaP,Tdap,and Td Vaccines (1 - Tdap) 10/29/1959 [facility]-Pneumococcal Vaccine: 50+ Years (1 of 1 - PCV) 1990 [facility]-Zoster Vaccines (1 of 2) 1990 [facility]-RSV Vaccine: 60+ Years or (1 - 1-dose 75+ series) 10/29/2015 [facility]-BFCIO-15 Vaccine (2024- season) 2024 01/25/2022, 02/09/2021, 07/01/2020, [...] Clinic Collect (11/11/2024 10:38 AM EDT) Pathologist [facility] Culture 10,000 - 100,000 CFU/mL Enterococcus faecalis(A) DEANN 11/13/2024 11:06 AM EDT [facility] Comment:This isolate has bee n identified using the FDA Approved [employer] [place] System Urine Urine specimen obtained by [...] LAB MICROBIOLOGY - GENERAL ORDERABLES Final Result [facility] [address] [place] [address] * (ABNORMAL) POCT URINALYSIS DIPSTICK (11/11/2024 10:11 AM EDT) Pathologist [facility] POCT Urine Color Yellow 11/11/2024 10:[address] [facility] POCT Urine Clarity Cloudy 11/11/2024 10:[address] [facility] POCT Urine Glucose Negative Negative mg/dL 11/11/2024 10:[address] [facility] POCT Urine Bilirubin Negative Negative mg/dL 11/11/2024 10:[address] [facility] POCT Urine Ketones Negative Negative mg/dL 11/11/2024 10:[address] [facility] POCT Urine Specific [place] 1.025 1.005 - 1.030 11/11/2024 10:[address] [facility] POCT Urine Blood Small(A) Negative 11/11/2024 10:[address] [facility] POCT pH, Urine 5.5 5.0 - 8.0 11/11/2024 10:[address] [facility] POCT Protein, Urine 100(A) Negative mg/dL 11/11/2024 10:13 AM EDT [facility] POCT Urobilinogen, Urine 0.2 0.2, 1.0 EU/dL 11/11/2024 10:[address] [facility] POCT Nitrite, Urine Negative Negative 11/11/2024 10:[address] [facility] POCT Urine Leukocyte Esterase Moderate(A) Negative 11/11/2024 10:[address] [facility] Urine 11/11/2024 10:1 1 AM EDT 11/11/2024 10:13 AM EDT Carrie ALVAREZ LAB POINT OF CARE T EST DOCKED DEVICE UNSOLICITED RESULTS Final Result [facility] [address], [place] * POC US Bladder Volume (11/11/2024) Urine, Volume 195 mL IMAGING Anatomical Region Laterality Modality Other Urine 11/11/2024 Carrie ALVAREZ IMG POINT OF CARE ULTRASOUN D Final Result from Last [address] [place] [address] [address] [place] [address] MEDICARE Advance Directives * Full Code (Latest Code Status on File) Date Activated Date Inactivated Comments 08/22/2024 4:19 PM 08/23/2024 6:07 PM Question Answer Comments I have reviewed the capacity from the link above and, if needed, have updated to appropriate status: Yes Care Teams English Composition Instructor Relationship Specialty Start Date End Date Ronny Belle MD [facility] [place] [address] PCP - General 07/01/24 Carrie James PA [address] [facility] [address] [place] [address] Physician Car Unloader Urology 11/11/24
== END 2024-12-17 23:59 | disposition home or self-care (01) ==
LOC: LAB.DROPOF 12-19 09:50
PROVIDERS: PCP Internal Medicine; Visit Provider Internal Medicine
DX: N39.0 Urinary tract infection, site not specified (principal)
CPT/HCPCS: 87086

== ENCOUNTER 2024-12-17 10:18 | Outpatient (CLI) | payer MEDICARE, SELFPAY ==
--- OUTSIDE RECORDS SUMMARY | 2024-11-11 10:30 | XMS_ITS | Encounter Summary ---
Author Organization Healthcare Address [address] [place] [address] Care Team Providers Care Middle [employer] Science Teacher Name Role Phone Ronny Belle MD Primary Care Provider [phone] Carrie James Unavailable [phone] Reason for Visit * Reason Comments Urinary Retention UTI Encounter Details Date Type Department Care Team (Late st Contact Info) Description 11/11/2024 10:30 AM EDT Office Visit [place] [facility] [address] [place] [address] Carrie James PA [address] [place] [address] Urinary retention (Primary Dx); History [...] drink first t herminio in the morning (EYE-HALL PORTER) to steady your nerves or to get [...] Yellow POCT Urine Clarity Cloudy POCT Specific [place], Urine 1.005 - 1.030 1.025 POCT Protein, [...] is abnormal POC US Bladder Volume Order: [id number] Component Ref Range & Units 10 d [...] Office Visit [place] [facility] [address] [place] [address] Carrie James PA [address] [place] [address] documented as of this encounter [...] Enterococcus faecalis(A) DEANN 11/13/2024 11:06 AM EDT [facility] Comment:This isolate has bee n identified using the FDA Approved PrivateMarketser [place] System Urine Urine specimen obtained by [...] LAB MICROBIOLOGY - GENERAL ORDERABLES Final Result [facility] [address] [place] [address] * (ABNORMAL) POCT URINALYSIS DIPSTICK (11/11/2024 10:11 AM EDT) POCT Urine Color Yellow 11/11/2024 10:13 AM EDT [facility] POCT Urine Clarity Cloudy 11/11/2024 10:13 AM EDT [facility] POCT Urine Glucose Negative Negative mg/dL 11/11/2024 10:13 AM EDT [facility] POCT Urine Bilirubin Negative Negative mg/dL 11/11/2024 10:13 AM EDT [facility] POCT Urine Ketones Negative Negative mg/dL 11/11/2024 10:13 AM EDT [facility] POCT Urine Specific [place] 1.025 1.005 - 1.030 11/11/2024 10:13 AM EDT [facility] POCT Urine Blood Small(A) Negative 11/11/2024 10:13 AM EDT [facility] POCT pH, Urine 5.5 5.0 - 8.0 11/11/2024 10:13 AM EDT [facility] POCT Protein, Urine 100(A) Negative mg/dL 11/11/2024 10:13 AM EDT [facility] POCT Urobilinogen, Urine 0.2 0.2, 1.0 EU/dL 11/11/2024 10:13 AM EDT [facility] POCT Nitrite, Urine Negative Negative 11/11/2024 10:13 AM EDT [facility] POCT Urine Leukocyte Esterase Moderate(A) Negative 11/11/2024 10:13 AM EDT [facility] Urine 11/11/2024 10:1 1 AM EDT 11/11/2024 10:13 AM EDT Carrie ALVARE[facility] POINT OF CARE T EST DOCKED DEVICE UNSOLICITED RESULTS Final Result [facility] [address] [place], [place] * POC US Bladder Volume (11/11/2024) [...] documented as of this encounter Care Teams Middle [employer] Science Teacher Relationship Specialty Start Date End Date Ronny Belle MD [address] [place] [id number] PCP - General 07/01/24 Carrie James PA [address] [place] [address] Physician Vice President Sales Urology 11/11/24 documented as of this encounter
--- OUTSIDE RECORDS SUMMARY | 2024-12-17 10:30 | XMS_ITS | Encounter Summary ---
Author Organization Healthcare Address [address] [place] [address] Care Team Providers Care Hvac Instructor Name Role Phone Ronny Belle MD Primary Care Provider [phone] Carrie James Unavailable [phone] Reason for Visit * Reason Onset Date Comments HCN Clinical Concern/Question 11/13/2024 Encounter Details Date Type Department Care Team (Late st Contact Info) Description 11/13/2024 Telephone [place] [facility] [address] [place] [address] Carrie James PA [address] [place] [address] HCN Clinical Concern/Question Social History [...] drink first t herminio in the morning (EYE-RIVER CROSSING SUPERVISOR) to steady your nerves or to [...] of the initial request. Best contact number: [phone] (mobile) Optimal time of day to reach [...] will receive notification of the communication/outcome via [employer]. * Telephone Encounter - David Novak - 11/13/2024 3:04 PM EDT Pt and pt daughter are wanting results from 11/11. Urine cx * Telephone Encounter - Tara Corral - 11/13/2024 3:01 PM EDT Clinical Concern/Question Reason for Call: pt daughter asking for lab results for patient Best contact number: Other: [phone] Optimal time of day to reach caller: [...] Description 01/06/2025 8:30 AM EDT Office Visit [facility] Urology [address] [place] [address] Carrie James PA [address] [place] [address] documented as of this encounter Visit Diagnoses Not on filedocumented in this encounter Additional Health Concerns Assessment Noted Time A fall risk assessment has been complete d for the patient 11/11/2024 10:02 AM EDT A Body Mass Index follow-up plan has been documented for the patient 11/21/2024 3:27 PM EDT documented as of this encounter Care Teams Hvac Instructor Relationship Specialty Start Date End Date Ronny Belle MD [address] [place] [address] PCP - General 07/01/24 Carrie James PA [address] [place] [address] Physician Line And Frame Poler Urology 11/11/24 documented as of this encounter
--- OUTSIDE RECORDS SUMMARY | 2024-12-17 10:30 | XMS_ITS | Clinical Summary ---
Author Organization [facility] [place] [address] Care Team Providers Care Doctor Of Veterinary Medicine Name Role Phone Unavailable Primary Care Provider [...]
--- OUTSIDE RECORDS SUMMARY | 2024-12-17 10:30 | XMS_ITS | Clinical Summary ---
Author Organization [facility] Address [address] [place] [address] Care Team Providers Care Mental Health Professional Name Role Phone Ronny Belle MD Primary Care Provider [phone] Allergies No known active allergies Social History [...] Vaccination (#1) 2024 Insurance MEDICARE Care Teams Mental Health Professional Relationship Specialty Start Date End Date Ronny Belle MD [address] [place], [place] [id number] PCP - General Family Medicine 04/13/22
--- OUTSIDE RECORDS SUMMARY | 2024-12-17 10:30 | XMS_ITS | Encounter Summary ---
Author Organization [facility] Address [address] [place] [address] Care Team Providers Care Montessori Program Director Name Role Phone Ronny Belle MD Primary Care Provider [phone] Carrie James Unavailable [phone] Encounter Details Date Type Department Care Team (Latest Contact Info) Description 11/11/2024 Travel Social History Tobacco Use Types Packs/Day Years Used Date Smoking Tobacco: Former Cigarettes 3 67 1 632 - 2021 Smokeless Tobacco: Never Alcohol Use [...] drink first t herminio in the morning (EYE-OSTOMY NURSE) to steady your nerves or to get [...] Description 01/06/2025 8:30 AM EDT Office Visit [facility] Urology [address] [place] [address] Carrie James PA [id number] [place] [address] documented as of this encounter Visit Diagnoses Not on filedocumented in this encounter Additional Health Concerns Assessment Noted Time A fall risk assessment has been complete d for the patient 11/11/2024 10:02 AM EDT A Body Mass Index follow-up plan has been documented for the patient 11/21/2024 3:27 PM EDT documented as of this encounter Care Teams Montessori Program Director Relationship Specialty Start Date End Date Ronny Belle MD [facility] [place] [address] PCP - General 07/01/24 Carrie James PA [address] [place] [address] Physician Geospatial Extractor Analysis Urology 11/11/24 documented as of this encounter
--- OUTSIDE RECORDS SUMMARY | 2024-12-17 10:30 | XMS_ITS | Clinical Summary ---
Author Organization [facility] Address [address] [place] [address] Care Team Providers Care Medical Record Clerk Name Role Phone Ronny Belle MD Primary Care Provider [phone] Carrie James Unavailable [phone] Allergies Active Allergy Reactions Criticality Noted Date [...] needed for headaches, pain or fever. Under [place] law, monthly prescriptions (30 days) can be [...] Type Department Care Team Description 12/05/2024 Telephone [facility] Urology [address] [place] [address] Carrie James PA Confirmed Chanegs 11/14/2024 Results Follow-Up [facility] Urology [address] [place] [address] Carrie James PA 11/14/2024 Orders Only [facility] Urology [address] [place] [address] Carrie James PA Urinary tract infection with hematuria, site unspecified (Primary Dx) 11/13/2024 Telephone [facility] Urology [address] [place] [address] Carrie James PA HCN Clinical Concern/Question 11/11/2024 10:30 AM EDT Office Visit [facility] Urology [address] [place] [address] Carrie James PA Urinary retention (Primary Dx); History of UTI 11/11/2024 Travel 11/06/2024 Telephone [facility] Urology [address] [place] [address] Carrie James PA HCN Clinical Concern/Question; [...] drink first t herminio in the morning (EYE-SOLUTIONS CONSULTANT) to steady your nerves or to get [...] Description 01/06/2025 8:30 AM EDT Office [facility] [address] [place] [address] Carrie James PA [address] [place] [address] Health Maintenance Due Date Last Done Comments [facility]-Medicare Annual Wellness (AWV) 1940 [facility]-/Child/Adol SDOH Screenings 1940 [facility]- SDOH Screenings 1958 [facility]-Adult SDOH Screenings 1958 [facility]-DTaP,Tdap,and Td Vaccines (1 - Tdap) 10/29/1959 [facility]-Pneumococcal Vaccine: 50+ Years (1 of 1 - PCV) 1990 [facility]-Zoster Vaccines (1 of 2) 1990 [facility]-RSV Vaccine: 60+ Years or (1 - 1-dose 75+ series) 10/29/2015 [id number] Vaccine (2024- season) 2024 01/25/2022, 02/09/2021, 07/01/2020, [...] Collect (11/11/2024 10:38 AM EDT) Pathologist [facility] Culture 10,000 - 100,000 CFU/mL Enterococcus faecalis(A) DEANN 11/13/2024 11:[address] [facility] Comment:This isolate has bee n identified using the FDA Approved xAder CA System Urine Urine specimen obtained by [...] LAB MICROBIOLOGY - GENERAL ORDERABLES Final Result [facility] [address] [place] [address] * (ABNORMAL) POCT URINALYSIS DIPSTICK (11/11/2024 10:11 AM EDT) Pathologist [facility] POCT Urine Color Yellow 11/11/2024 10:13 AM EDT [facility] POCT Urine Clarity Cloudy 11/11/2024 10:13 AM EDT [facility] POCT Urine Glucose Negative Negative mg/dL 11/11/2024 10:13 AM EDT [facility] POCT Urine Bilirubin Negative Negative mg/dL 11/11/2024 10:13 AM EDT [facility] POCT Urine Ketones Negative Negative mg/dL 11/11/2024 10:13 AM EDT [facility] POCT Urine Specific [place] 1.025 1.005 - 1.030 11/11/2024 10:13 AM EDT [facility] POCT Urine Blood Small(A) Negative 11/11/2024 10:13 AM EDT [facility] POCT pH, Urine 5.5 5.0 - 8.0 11/11/2024 10:13 AM EDT [facility] POCT Protein, Urine 100(A) Negative mg/dL 11/11/2024 10:13 AM EDT [facility] POCT Urobilinogen, Urine 0.2 0.2, 1.0 EU/dL 11/11/2024 10:13 AM EDT [facility] POCT Nitrite, Urine Negative Negative 11/11/2024 10:13 AM EDT [facility] POCT Urine Leukocyte Esterase Moderate(A) Negative 11/11/2024 10:13 AM EDT [facility] Urine 11/11/2024 10:1 1 AM EDT 11/11/2024 10:13 AM EDT Carrie ALVAREZ LAB POINT OF CARE T EST DOCKED DEVICE UNSOLICITED RESULTS Final Result [facility] [address], [place] * POC US Bladder Volume (11/11/2024) Urine, Volume 195 mL IMAGING Anatomical Region Laterality Modality Other Urine 11/11/2024 Carrie ALVAREZ IMG POINT OF CARE ULTRASOUN D Final Result from Last [address] [place] [address] MEDICARE Advance Directives * Full Code (Latest Code Status on File) Date Activated Date Inactivated Comments 08/22/2024 4:19 PM 08/23/2024 6:07 PM Question Answer Comments I have reviewed the capacity from the link above and, if needed, have updated to appropriate status: Yes Care Teams Medical Record Clerk Relationship Specialty Start Date End Date Ronny Belle MD [facility] [place] [address] PCP - General 07/01/24 Carrie James PA [address] [facility] [address] [place] [address] Physician Reading Professor Urology 11/11/24
--- OUTSIDE RECORDS SUMMARY | 2024-12-17 10:30 | XMS_ITS | Encounter Summary ---
Author Organization Healthcare Address [address] [place] [address] Care Team Providers Care Footwear Production Machine Operator Name Role Phone Ronny Belle MD Primary Care Provider [phone] Carrie James Unavailable [phone] Reason for Visit * Reason Onset Date Comments HCN Clinical Concern/Question 11/06/2024 HCN Status Update Call #1 11/06/2024 Encounter Details Date Type Department Care Team (Late st Contact Info) Description 11/06/2024 Telephone [facility] [address], [address] [place] [address] Carrie James PA [address] [place] [address] HCN Clinical Concern/Question; HCN Status [...] drink first t herminio in the morning (EYE-CABLE ARMORER) to steady your nerves or to get [...] of the initial request. Best contact number: [phone] Optimal time of day to reach caller: [...] will receive notification of the communication/outcome via [employer] Inchart. * Telephone Encounter - Carol Briceno LPN [...] backwith info. Thank you Best contact number: [phone] (mobile) Optimal time of day to reach caller: ANYTIME Additional comments/information from caller: None Note: Please do not reply to this message. Follow-up communication and further actions as a result of this message need to be communicated with the patient directly, if the patient is not active onMyChart. If the patient is active on MyChart, they will receive notification of the communication/outcome via [employer]. documented in this encounter Plan of Treatment Upcoming Encounters Date Type Department Care Team (Late st Contact Info) Description 01/06/2025 8:30 AM EDT Office Visit [facility] [address] [place] [address] Carrie James PA [address] [place] [address] documented as of this encounter Visit Diagnoses Not on filedocumented in this encounter Additional Health Concerns Assessment Noted Time A fall risk assessment has been complete d for the patient 09/02/2024 1:40 PM EDT A Body Mass Index follow-up plan has been documented for the patient 09/02/2024 3:48 PM EDT documented as of this encounter Care Teams Footwear Production Machine Operator Relationship Specialty Start Date End Date Ronny Belle MD [address] [place] [address] PCP - General 07/01/24 Carrie James PA [id number] [place] [address] Physician Fuel Cell Technician Urology 11/11/24 documented as of this encounter
--- OUTSIDE RECORDS SUMMARY | 2024-12-17 10:30 | XMS_ITS | Encounter Summary ---
Author Organization Healthcare Address [address] [place] [address] Care Team Providers Care Smasher Hand Name Role Phone Ronny Belle MD Primary Care Provider [phone] Carrie James Unavailable [phone] Encounter Details Date Type Department Care Team (Late st Contact Info) Description 11/14/2024 Orders Only [facility] Urology [address], [address] [place] [address] Carrie James PA [address] [place] [address] Urinary tract infection with hematuria, site unspecified (Primary Dx) Social History Tobacco Use Types Packs/Day Years Used Date Smoking Tobacco: Former Cigarettes 3 67 1 055 - 202 Smokeless Tobacco: Never Alcohol Use [...] drink first t herminio in the morning (EYE-SUPERVISOR TUBING) to steady your nerves or to get [...] Office Visit [facility] [address] [place] [address] Carrie James PA [address] [place] [address] documented as of this encounter Visit Diagnoses [...] documented as of this encounter Care Teams Smasher Hand Relationship Specialty Start Date End Date Ronny Belle MD [address] [place] [address] PCP - General 07/01/24 Carrie James PA [address] [facility] [address] [place] [address] Physician Hot Baller Urology 11/11/24 documented as of this encounter
--- OUTSIDE RECORDS SUMMARY | 2024-12-17 10:30 | XMS_ITS | Clinical Summary ---
Author Organization [facility] Address [address] [place] [address], [address] [place] [address] Care Team Providers Care Sealer Dry Cell Name Role Phone Ronny Belle MD Primary Care Provider [phone] Allergies Active Allergy Reactions Criticality Noted Date [...] complete this topic Insurance MEDICARE Care Teams Sealer Dry Cell Relationship Specialty Start Date End Date Ronny Belle MD [address] [place] [address] PCP - General Family Medicine 04/27/22
--- OUTSIDE RECORDS SUMMARY | 2024-12-17 10:30 | XMS_ITS | Encounter Summary ---
Author Organization Healthcare Address [address] [place] [address] Care Team Providers Care Accreditation Manager Name Role Phone Ronny Belle MD Primary Care Provider [phone] Carrie James Unavailable [phone] Reason for Visit * Reason Onset Date Comments Confirmed Chanegs 12/05/2024 Encounter Details Date Type Department Care Team (Late st Contact Info) Description 12/05/2024 Telephone [facility] [address], [address] [place] [address] Carrie James PA [address] [place] [address] Confirmed Baylee Social History Tobacco Use Types Packs/Day Years Used Date Smoking Tobacco: Former Cigarettes 3 67 1 013 - 2022 Smokeless Tobacco: Never Alcohol Use [...] drink first t herminio in the morning (EYE-POLITICAL RESEARCHER) to steady your nerves or to get [...] at 8:30 am with ES in the [facility] at 0 [facility], , [facility] [address] documented in this encounter Plan of Treatment Upcoming Encounters Date Type Department Care Team (Late st Contact Info) Description 01/06/2025 8:30 AM EDT Office Visit [facility] Urology [address] [place] [address] Carrie James PA [facility] [address] [address] documented as of this encounter Visit Diagnoses Not on filedocumented in this encounter Additional Health Concerns Assessment Noted Time A fall risk assessment has been complete d for the patient 11/11/2024 10:02 AM EDT A Body Mass Index follow-up plan has been documented for the patient 11/21/2024 3:27 PM EDT documented as of this encounter Care Teams Accreditation Manager Relationship Specialty Start Date End Date Ronny Belle MD [address] [place] [address] PCP - General 07/01/24 Carrie James PA [address] [place] [address] Physician Non Profit Financial Controller Urology 11/11/24 documented as of this encounter
--- OUTSIDE RECORDS SUMMARY | 2024-12-17 10:30 | XMS_ITS | Encounter Summary ---
Author Organization Healthcare Address [address] [place] [address] Care Team Providers Care Ophthalmic Assistant Name Role Phone Ronny Belle MD Primary Care Provider [phone] Carrie James Unavailable [phone] Encounter Details Date Type Department Care Team (Late st Contact Info) Description 06/09/2024 Orders Only External Location [address] [place] [address] Provider, External Social History Tobacco Use Types [...] Description 01/06/2025 8:30 AM EDT Office Visit [facility] [address] [place] [address] Carrie James PA [address] [place] [address] documented as of this encounter Procedures Procedure [...] on filedocumented in this encounter Care Teams Ophthalmic Assistant Relationship Specialty Start Date End Date Ronny Belle MD [address] [place] [address] PCP - General 07/01/24 Carrie James PA [address] [facility] [address] [place] [address] Physician Varnish Cooker Urology 11/11/24 documented as of this encounter
--- OUTSIDE RECORDS SUMMARY | 2024-12-17 10:30 | XMS_ITS | Encounter Summary ---
Author Organization Healthcare Address [address] [place] [address] Care Team Providers Care Field Account Director Name Role Phone Ronny Belle MD Primary Care Provider [phone] Carrie James Unavailable [phone] Encounter Details Date Type Department Care Team (Late st Contact Info) Description 11/14/2024 Results Follow-Up [facility] Urology [address] [place] [address] Carrie James PA [address] [place] [address] Social History Tobacco Use Types [...] drink first t herminio in the morning (EYE-FINISHED STOCK INSPECTOR) to steady your nerves or to [...] Description 01/06/2025 8:30 AM EDT Office Visit [facility] [address] [place] [address] Carrie James PA [address] [place] [address] documented as of this encounter Visit Diagnoses Not on filedocumented in this encounter Additional Health Concerns Assessment Noted Time A fall risk assessment has been complete d for the patient 11/11/2024 10:02 AM EDT A Body Mass Index follow-up plan has been documented for the patient 11/21/2024 3:27 PM EDT documented as of this encounter Care Teams Field Account Director Relationship Specialty Start Date End Date Ronny Belle MD [address] [place] [address] PCP - General 07/01/24 Carrie James PA [address] [place] [address] Physician Lead Generator Urology 11/11/24 documented as of this encounter
[2024-12-17 11:08] VITALS: BP 111/61; PULSE 84; RESP 18; O2SAT 93
[2024-12-17] MEDS: DAPTOmycin 500 MG in 0.9 % SODIUM CHLORIDE 50 ML 100 MG IV (11:08)
[2024-12-17 12:00] VITALS: BP 123/65; PULSE 82; RESP 18; O2SAT 93
== END 2024-12-17 12:00 | disposition home or self-care (01) ==
LOC: INF 10:18
PROVIDERS: PCP Family Medicine
DX: N39.0 Urinary tract infection, site not specified (principal)
CPT/HCPCS: 87086; 96365; J0878

== ENCOUNTER 2025-01-08 10:25 | Outpatient (CLI) | payer MEDICARE, SELFPAY ==
--- OUTSIDE RECORDS SUMMARY | 2024-11-11 10:30 | XMS_ITS | Encounter Summary ---
Author Organization Healthcare Address [address] [place] [address] Care Team Providers Care Kalsominer Name Role Phone Ronny Belle MD Primary Care Provider [phone] Carrie James Unavailable [phone] Reason for Visit * Reason Comments Urinary Retention UTI Encounter Details Date Type Department Care Team (Late st Contact Info) Description 11/11/2024 10:30 AM EDT Office Visit [place] [facility] [address] [place] [address] Carrie James PA [address] [place] [address] Urinary retention (Primary Dx); History [...] drink first t herminio in the morning (EYE-JANITORIAL TECH) to steady your nerves or to [...] Yellow POCT Urine Clarity Cloudy POCT Specific [place], Urine 1.005 - 1.030 1.025 POCT Protein, [...] is abnormal POC US Bladder Volume Order: [id number] Component Ref Range & Units 10 d [...] Care Team (Late st Contact Info) Description 07/13/2025 10:45 AM EDT Appointment [facility]trasound [address] [place] [address] 07/13/2025 12:40 PM EDT Office Visit [facility] Urology [address] [place] [address] Carrie James, KIM [address] [place] [address] documented as of this encounter [...] Enterococcus faecalis(A) DEANN 11/13/2024 11:06 AM EDT [facility] Comment:This isolate has bee n identified using the FDA Approved MALDI Huddleyper [place] System Urine Urine specimen obtained by [...] LAB MICROBIOLOGY - GENERAL ORDERABLES Final Result [facility] [address] [place] [address] * (ABNORMAL) POCT URINALYSIS DIPSTICK (11/11/2024 10:11 AM EDT) POCT Urine Color Yellow 11/11/2024 10:13 AM EDT [facility] POCT Urine Clarity Cloudy 11/11/2024 10:13 AM EDT [facility] PO[facility] Urine Glucose Negative Negative mg/dL 11/11/2024 10:13 AM EDT [facility] POCT Urine Bilirubin Negative Negative mg/dL 11/11/2024 10:13 AM EDT [facility] POCT Urine Ketones Negative Negative mg/dL 11/11/2024 10:13 AM EDT [facility] POCT Urine Specific [place] 1.025 1.005 - 1.030 11/11/2024 10:13 AM EDT [facility] POCT Urine Blood Small(A) Negative 11/11/2024 10:13 AM EDT [facility] POCT pH, Urine 5.5 5.0 - 8.0 11/11/2024 10:13 AM EDT [facility] POCT Protein, Urine 100(A) Negative mg/dL 11/11/2024 10:13 AM EDT [facility] POCT Urobilinogen, Urine 0.2 0.2, 1.0 EU/dL 11/11/2024 10:13 AM EDT [facility] POCT Nitrite, Urine Negative Negative 11/11/2024 10:13 AM EDT [facility] POCT Urine Leukocyte Esterase Moderate(A) Negative 11/11/2024 10:13 AM EDT [facility] Urine 11/11/2024 10:1 1 AM EDT 11/11/2024 10:13 AM EDT [facility] POINT OF CARE T EST DOCKED DEVICE UNSOLICITED RESULTS Final Result [facility] [address] [place], [place] * POC US Bladder Volume (11/11/2024) [...] documented as of this encounter Care Teams Kalsominer Relationship Specialty Start Date End Date Ronny Belle MD [address] [place] [id number] PCP - General 07/01/24 Carrie James PA [address] [place] [address] Physician Registered Client Associate Urology 11/11/24 documented as of this encounter
--- OUTSIDE RECORDS SUMMARY | 2025-01-06 08:30 | XMS_ITS | Encounter Summary ---
Author Organization [facility] Address [address] [place] [address] Care Team Providers Care Education Nurse Name Role Phone Ronny Belle MD Primary Care Provider [phone] Carrie James Unavailable [phone] Reason for Referral * Imaging (Routine) - Authorized Specialty Diagnoses / Procedures Referred By Contac t Referred To Contact Radiology Diagnoses Urinary retention Procedures US Renal Complete Carrie James PA [address] [address] Phone: tel: fax: Referral ID Status Reason Start Date Expiration Date V isits Requested Visits Authorized [id number] Authorized 01/06/2025 07/08/2026 1 1 Reason for Visit * Reason Comments Follow-up UTI UTI Encounter Details Date Type Department Care Team (Late st Contact Info) Description 01/06/2025 8:30 AM EDT Office Visit [facility] [address] [place] [address] Carrie James PA [address] [address] Benign prostatic hyperplasia with incomplete [...] drink first t herminio in the morning (EYE-DENTAL FLOSS PACKER) to steady your nerves or to get [...] Info) Description 07/13/2025 10:45 AM EDT Appointment [facility] Ultrasound [address] [place] [address] 07/13/2025 12:40 PM EDT Office Visit [facility] Urology [address] [place] [address] Carrie James PA [address] [place] [address] Scheduled Orders Name Type Priority [...] Color Yellow 01/06/2025 8:53 AM EDT [facility] POCT Urine Clarity Clear 01/06/2025 8:53 AM EDT [facility] POCT Urine Glucose Negative Negative mg/dL 01/06/2025 8:53 AM EDT [facility] POCT Urine Bilirubin Negative Negative mg/dL 01/06/2025 8:53 AM EDT [facility] POCT Urine Ketones Negative Negative mg/dL 01/06/2025 8:53 AM EDT [facility] POCT Urine Specific [place] 1.010 1.005 - 1.030 01/06/2025 8:53 AM EDT [facility] POCT Urine Blood Negative Negative 01/06/2025 8:53 AM EDT [facility] POCT pH, Urine 5.5 5.0 - 8.0 01/06/2025 8:53 AM EDT [facility] POCT Protein, Urine Negative Negative mg/dL 01/06/2025 8:53 AM EDT [facility] POCT Urobilinogen, Urine 0.2 0.2, 1.0 EU/dL 01/06/2025 8:53 AM EDT [facility] POCT Nitrite, Urine Negative Negative 01/06/2025 8:53 AM EDT [facility] POCT Urine Leukocyte Esterase Trace(A) Negative 01/06/2025 8:53 AM EDT [facility] Urine 01/06/2025 8:52 AM EDT 01/06/2025 8:53 AM EDT Carrie ALVAREZ LAB POINT OF CARE T EST DOCKED DEVICE UNSOLICITED RESULTS Final Result Performing Organization Address City/State/[facility] Co de Phone Number [facility] [address] [place], [place] * POC US Bladder Volume (01/06/2025) [...] documented as of this encounter Care Teams Education Nurse Relationship Specialty Start Date End Date Ronny Belle MD [address] [place] [address] PCP - General 07/01/24 Carrie James PA [id number] [place] [phone] Physician Workday Financials Consultant Urology 11/11/24 documented as of this encounter
[2025-01-08 15:18] LABS: Hematocrit 29.4 % (42.0-52.0); Hemoglobin 8.5 g/dL (14.1-18.0); Immature Granulocytes % 0.5 %; Mean Corpuscular HGB Conc 28.9 g/dL (31.8-35.4); Mean Corpuscular Hemoglobin 23.9 pg (27.0-31.2); Mean Corpuscular Volume 82.8 fl (80-94); Nucleated Red Blood Cells % 0 %; Platelet Count 622 K/mm3 (142-424); Red Blood Count 3.55 M/mm3 (4.60-6.20); Red Cell Distribution Width-SD 56.4 fL; White Blood Count 11.0 K/mm3 (4.8-10.8)
[2025-01-08 15:37] LABS: Alanine Aminotransferase 25 U/L (12-78); Albumin Level 3.1 g/dl (3.5-5.0); Albumin/Globulin Ratio 1.0 (1.1-1.8); Alkaline Phosphatase 122 U/L (38-126); Anion Gap 16.8 mEq/L (5-15); Aspartate Amino Transferase 24 U/L (17-59); Bilirubin,Total 0.4 mg/dl (0.2-1.3); Blood Urea Nitrogen 20 mg/dl (9-20); Calcium 8.8 mg/dl (8.4-10.2); Carbon Dioxide 26 mmol/L (22.0-30.0); Chloride 99 mmol/L (98-107); Creatinine,Serum 1.00 mg/dl (0.66-1.25); Estimated Glomerular Filt Rate 71 ml/min (>60); GFR (African American) 86 ML/MIN (>60); Globulin 3.0 g/dL (1.3-3.2); Glucose 70 mg/dl (74-100); Potassium 5.8 mmoL/L (3.5-5.1); Sodium 136 mmol/L (136-145); Total Protein,Serum 6.1 g/dl (6.3-8.2); Uric Acid 6.2 mg/dl (3.5-8.5)
[2025-01-08 15:42] LABS: C-Reactive Protein 80.5 mg/L (0-4)
[2025-01-08 17:27] LABS: Iron 30 ug/dL (49-181)
[2025-01-08 17:39] LABS: Total Iron Binding Capacity 304 ug/dL (261-462)
--- OUTSIDE RECORDS SUMMARY | 2025-01-09 12:01 | XMS_ITS | Clinical Summary ---
Author Organization [facility] Address [address] [place] [address] Care Team Providers Care Formula Technician Name Role Phone Ronny Belle MD Primary Care Provider [phone] Carrie James Unavailable [phone] Allergies Active Allergy Reactions Criticality Noted Date [...] shortness of breath or wheezing. 4 Active furosemide (Lasix) 40 MG tablet Take 1 tablet by mouth daily. 5 Active levoFLOXacin (Levaquin) 750 MG tablet Take 1 tablet by mouth daily. Active FeroSul 325 (65 Fe) MG tablet Take 1 tablet by mouth daily. Active Active Problems Problem Noted Date Diagnosed Date Gross hematuria 08/22/2024 Hematuria 08/21/2024 Urinary retention 08/21/2024 Prostate mass 08/11/2024 Encounters Date Type Department Care Team Description 01/06/2025 8:30 AM EDT Office Visit [facility] [address] [place] [phone] Carrie James PA Benign prostatic hyperplasia with incomplete bladder emptying (Primary Dx) 01/06/2025 Telephone [facility] [address] [place] [phone] Carrie James PA Records/Image Request 01/06/2025 Travel 12/08/2024 Orders Only External Location [address] [place] [address] Provider, External 12/05/2024 Telephone [facility] [address] [phone] Carrie James PA Confirmed Chanegs 11/14/2024 Results Follow-Up [facility] [address] [place] [phone] Carrie James PA 11/14/2024 Orders Only [facility] [address] [place] [phone] Carrie James PA Urinary tract infection with hematuria, site unspecified (Primary Dx) 11/13/2024 Telephone [facility] [address] [place] [phone] Carrie James PA HCN Clinical Concern/Question 11/11/2024 10:30 AM EDT Office Visit [facility] [address] [place] [phone] Carrie James PA Urinary retention (Primary Dx); History of UTI 11/11/2024 Travel 11/06/2024 Telephone [facility] [address] [place] [address] Carrie James PA HCN Clinical Concern/Question; HCN Status Update Call #1 10/16/2024 Orders Only External Location [address] [place] [address] Provider, External 10/16/2024 Orders Only External Location [address] [place] [address] Provider, External 10/16/2024 Orders Only External Location [address] [place] [address] Provider, External 10/13/2024 Orders Only External Location [address] [place] [address] Provider, External from Last 3 Months Social History Tobacco Use Types Packs/Day Years Used Date Smoking Tobacco: Former Cigarettes 3 67 1 995 - 2021 Smokeless Tobacco: Never Tobacco Cessation:Counseling [...] drink first t herminio in the morning (EYE-PARTS AND SERVICE MANAGER) to steady your nerves or to [...] Pulse 87 01/06/2025 8:53 AM EDT Temperature 36.6 C (97.8 F) 09/02/2024 1:36 PM EDT Respiratory Rate 14 01/06/2025 8:53 AM EDT Oxygen Saturation 94% 01/06/2025 8:53 AM EDT Inhaled Oxygen Concentration - - Weight 97.2 kg (214 lb 4.6 oz) 01/06/2025 8:53 A M EDT Height 175.3 cm (5' 9 ) 01/06/2025 8:53 AM EDT Body Mass Index 31.64 01/06/2025 8:53 AM EDT Plan of Treatment Upcoming Encounters Date Type Department Care Team (Late st Contact Info) Description 07/13/2025 10:45 AM EDT Appointment [facility] Ultrasound [address] [place] [address] 07/13/2025 12:40 PM EDT Office Visit [facility] [address] [place] [address] Carrie James PA [address] [place] [address] Health Maintenance Due Date Last Done Comments [facility]-Medicare Annual Wellness (AWV) 1940 [facility]-/Child/Adol SDOH Screenings 1940 [facility]- SDOH Screenings 1958 [facility]-Adult SDOH Screenings 1958 [facility]-DTaP,Tdap,and Td Vaccines (1 - Tdap) 10/29/1959 [facility]-Pneumococcal Vaccine: 50+ Years (1 of 1 - PCV) 1990 [facility]-Zoster Vaccines (1 of 2) 1990 [facility]-RSV Vaccine: 60+ Years or (1 - 1-dose 75+ series) 10/29/2015 [id number] Vaccine ( - season) 2024 01/25/2022, 02/09/2021, 07/01/2020, Additional history exists [facility]-Influenza Vaccine (#1) 2024 [facility]-Depression Screening 01/06/2026 01/06/2025 [facility]-Obesity Intervention Completed 025, 11/11/2024, 09/02/2024, Additional history exists HPV Vaccines Aged Out [...] US BLADDER SCAN FOR VOLUME Routine 01/06/2025 XR OUTSIDE IMAGES 12/08/2024 12: 48 PM EDT URINE CULTURE Routine 11/11/2024 10:38 AM EDT Urinary retention POCT URINALYSIS DIPSTICK Routine 11/11/2024 10:11 AM EDT POC US BLADDER SCAN FOR VOLUME Routine 11/11/[address] MSK OUTSIDE IMAGES 10/16/2024 10:[address] THORACIC OUTSIDE IMAGES 10/16/2024 10:50 AM EDT US OUTSIDE IMAGES 10/16/2024 9:1 4 AM EDT XR OUTSIDE IMAGES 10/13/2024 1:2 6 PM EDT from Last 3 Months Results * (ABNORMAL) POCT URINALYSIS DIPSTICK (01/06/2025 8:52 AM EDT) Only the most recent of2 resultswithin the time period is included. POCT Urine Color Yellow 01/06/2025 8:53 AM EDT [facility] POCT Urine Clarity Clear 01/06/2025 8:53 AM EDT [facility] POCT Urine Glucose Negative Negative mg/dL 01/06/2025 8:53 AM EDT [facility] POCT Urine Bilirubin Negative Negative mg/dL 01/06/2025 8:53 AM EDT [facility] POCT Urine Ketones Negative Negative mg/dL 01/06/2025 8:53 AM EDT [facility] POCT Urine Specific Ross 1.010 1.005 - 1.030 01/06/2025 8:53 AM EDT [facility] POCT Urine Blood Negative Negative 01/06/2025 8:53 AM EDT [facility] POCT pH, Urine 5.5 5.0 - 8.0 01/06/2025 8:53 AM EDT [facility] POCT Protein, Urine Negative Negative mg/dL 01/06/2025 8:53 AM EDT [facility] POCT Urobilinogen, Urine 0.2 0.2, 1.0 EU/dL 01/06/2025 8:53 AM EDT [facility] POCT Nitrite, Urine Negative Negative 01/06/2025 8:53 AM EDT [facility] POCT Urine Leukocyte Esterase Trace(A) Negative 01/06/2025 8:53 AM EDT [facility] Urine 01/06/2025 8:52 AM EDT 01/06/2025 8:53 AM EDT Carrie ALVAREZ LAB POINT OF CARE T EST DOCKED DEVICE UNSOLICITED RESULTS Final Result [facility] [address] [place], [place] * POC US Bladder Volume (01/06/2025) Only the most recent of2 resultswithin the time period is included. Urine, Volume 165 mL IMAGING Anatomical Region Laterality Modality Other Urine 01/06/2025 Carrie ALVAREZ IMG POINT OF CARE ULTRASOUN D Final Result * XR OUTSIDE IMAGES (12/08/2024 12:48 PM EDT) Only the most recent of2 resultswithin the time period is included. Anatomical Region Laterality Modality Radiographic Piper ging 12/08/2024 12:4 8 PM EDT us External Provider IMG XR PROCEDURES Final Result * (ABNORMAL) Urine Culture - Clinic Collect (11/11/2024 10:38 AM EDT) Culture 10,000 - 100,000 CFU/mL Enterococcus faecalis(A) DEANN 11/13/2024 11:[address] [facility] Comment:This isolate has bee n identified using the FDA Approved [place] System Urine Urine specimen obtained by clean [...] MICROBIOLOGY - GENERAL ORDERABLES Final Result [facility] [address] [place] [address] * CT THORACIC OUTSIDE IMAGES (10/16/2024 10:50 AM EDT) Anatomical Region Laterality Modality Computed Tomogra phy 10/16/2024 10:5 0 AM EDT us External Provider IMG CT PROCEDURES Final Result * CT MSK OUTSIDE IMAGES (10/16/2024 10:50 AM EDT) Anatomical Region Laterality Modality Computed Tomogra phy 10/16/2024 10:5 0 AM EDT us External Provider IMG CT PROCEDURES Final Result * US OUTSIDE IMAGES (10/16/2024 9:14 AM EDT) Anatomical Region Laterality Modality Ultrasound 10/16/2024 9:14 AM EDT us External Provider IMG US PROCEDURES Final Result from Last 3 Months Insurance [employer] MEDICARE Advance Directives * Full Code (Latest Code Status on File) Date Activated Date Inactivated Comments 08/22/2024 4:19 PM 08/23/2024 6:07 PM Question Answer Comments I have reviewed the capacity from the link above and, if needed, have updated to appropriate status: Yes Care Teams Formula Technician Relationship Specialty Start Date End Date Ronny Belle MD [facility] [place] [address] PCP - General 07/01/24 Carrie James PA [address] [facility] [address] [place] [address] Physician Prestressed Concrete Laborer Urology 11/11/24
--- OUTSIDE RECORDS SUMMARY | 2025-01-09 12:01 | XMS_ITS | Encounter Summary ---
Author Organization Healthcare Address [address] [place] [address] Care Team Providers Care Superintendent Name Role Phone Ronny Belle MD Primary Care Provider [phone] Carrie James Unavailable [phone] Encounter Details Date Type Department Care Team (Late st Contact Info) Description 10/16/2024 Orders Only External Location [address] [place] [phone] Provider, External Social History Tobacco Use Types Packs/Day Years Used Date Smoking Tobacco: Former Cigarettes 3 67 1 555 - 2021 Smokeless Tobacco: Never Alcohol Use [...] drink first t herminio in the morning (EYE-SCHOOL LUNCH MONITOR) to steady your nerves or to [...] Info) Description 07/13/2025 10:45 AM EDT Appointment [facility] Ultrasound [address] [place] [address] 07/13/2025 12:40 PM EDT Office Visit [facility] [address] [place] [address] Carrie James PA [address] [place] [address] documented as of this encounter Procedures Procedure Name Priority Date/Time Associated Diagnosis Comments CT MSK OUTSIDE IMAGES 10/16/2024 10:50 AM EDT documented in this encounter Results * CT MSK OUTSIDE IMAGES (10/16/2024 10:50 [...] documented as of this encounter Care Teams Superintendent Relationship Specialty Start Date End Date Ronny Belle MD [address] [place] [address] PCP - General 07/01/24 Carrie James PA [address] [place] [address] Physician Guest Services Coordinator Urology 11/11/24 documented as of this encounter
--- OUTSIDE RECORDS SUMMARY | 2025-01-09 12:01 | XMS_ITS | Encounter Summary ---
Author Organization Healthcare Address [address] [place] [address] Care Team Providers Care Heel Attacher Wood Name Role Phone Ronny Belle MD Primary Care Provider Carrie James Unavailable [phone] Encounter Details Date Type Department Care Team (Late st Contact Info) Description 12/08/2024 Orders Only External Location [address] [place] [phone] Provider, External Social History Tobacco Use Types Packs/Day Years Used Date Smoking Tobacco: Former Cigarettes 3 67 1 125 - 2021 Smokeless Tobacco: Never Alcohol Use [...] drink first t herminio in the morning (EYE-REPORTING PROCESS CONSULTANT) to steady your nerves or to [...] Info) Description 07/13/2025 10:45 AM EDT Appointment [facility] Ultrasound [address] [place] [address] 07/13/2025 12:40 PM EDT Office Visit [facility] [address] [place] [address] Carrie James PA [address] [place] [address] documented as of this encounter Procedures Procedure Name Priority Date/Time Associated Diagnosis Comments XR OUTSIDE IMAGES 12/08/2024 12:48 PM EDT documented in this encounter Results * XR OUTSIDE IMAGES (12/08/2024 12:48 PM EDT) Anatomical Region Laterality Modality Radiographic Piper ging 12/08/2024 12:4 8 PM EDT us External Provider IMG XR PROCEDURES Final Result documented in this encounter Visit Diagnoses Not on filedocumented in this encounter Additional Health Concerns Assessment Noted Time A fall risk assessment has been complete d for the patient 11/11/2024 10:02 AM EDT A Body Mass Index follow-up plan has been documented for the patient 11/21/2024 3:27 PM EDT documented as of this encounter Care Teams Heel Attacher Wood Relationship Specialty Start Date End Date Ronny Belle MD [address] [place] [address] PCP - General 07/01/24 Carrie James PA [address] [place] [address] Physician Payloader Machine Operator Urology 11/11/24 documented as of this encounter
--- OUTSIDE RECORDS SUMMARY | 2025-01-09 12:01 | XMS_ITS | Encounter Summary ---
Author Organization Healthcare Address [address] [place] [address] Care Team Providers Care Electric Truck Crane Operator Name Role Phone Ronny Belle MD Primary Care Provider [phone] Carrie James Unavailable [phone] Encounter Details Date Type Department Care Team (Late st Contact Info) Description 11/14/2024 Results Follow-Up [facility] [address] [place] [address] Carrie James PA [address] [place] [address] Social History Tobacco Use Types [...] drink first t herminio in the morning (EYE-WAREHOUSE ASSISTANT) to steady your nerves or to [...] Info) Description 07/13/2025 10:45 AM EDT Appointment [facility] Ultrasound [address] [place] [address] 07/13/2025 12:40 PM EDT Office Visit [facility] [address] [place] [address] Carrie James PA [address] [place] [address] documented as of this encounter Visit Diagnoses Not on filedocumented in this encounter Additional Health Concerns Assessment Noted Time A fall risk assessment has been complete d for the patient 11/11/2024 10:02 AM EDT A Body Mass Index follow-up plan has been documented for the patient 11/21/2024 3:27 PM EDT documented as of this encounter Care Teams Electric Truck Crane Operator Relationship Specialty Start Date End Date Ronny Belle MD [facility] [place] [address] PCP - General 07/01/24 Carrie James PA [address] [place] [address] Physician Household Refrigeration Mechanic Urology 11/11/24 documented as of this encounter
--- OUTSIDE RECORDS SUMMARY | 2025-01-09 12:01 | XMS_ITS | Clinical Summary ---
Author Organization [facility] [place] [address] Care Team Providers Care Waste Water Or Water Plant Operator Name Role Phone Unavailable Primary Care Provider [...]
--- OUTSIDE RECORDS SUMMARY | 2025-01-09 12:01 | XMS_ITS | Encounter Summary ---
Author Organization [facility] Address [address] [place] [address] Care Team Providers Care Hair Salon Manager Name Role Phone Ronny Belle MD Primary Care Provider [phone] Carrie James Unavailable [phone] Encounter Details Date Type Department Care Team (Latest Contact Info) Description 11/11/2024 Travel Social History Tobacco Use Types Packs/Day Years Used Date Smoking Tobacco: Former Cigarettes 3 67 9 505 - 2021 Smokeless Tobacco: Never Alcohol Use [...] drink first t herminio in the morning (EYE-DRUM SPRAYER) to steady your nerves or to get [...] Info) Description 07/13/2025 10:45 AM EDT Appointment [facility] Ultrasound [address] [place] [address] 07/13/2025 12:40 PM EDT Office Visit [facility] [address] [place] [address] Carrie James PA [address] [place] [address] documented as of this encounter Visit Diagnoses Not on filedocumented in this encounter Additional Health Concerns Assessment Noted Time A fall risk assessment has been complete d for the patient 11/11/2024 10:02 AM EDT A Body Mass Index follow-up plan has been documented for the patient 11/21/2024 3:27 PM EDT documented as of this encounter Care Teams Hair Salon Manager Relationship Specialty Start Date End Date Ronny Belle MD [facility] [place] [address] PCP - General 07/01/24 Carrie James PA [address] [place] [address] Physician Marble Coper Urology 11/11/24 documented as of this encounter
--- OUTSIDE RECORDS SUMMARY | 2025-01-09 12:01 | XMS_ITS | Encounter Summary ---
Author Organization Healthcare Address [address] [place] [address] Care Team Providers Care Forestry Contractor Name Role Phone Ronny Belle MD Primary Care Provider [phone] Carrie James Unavailable [phone] Encounter Details Date Type Department Care Team (Late st Contact Info) Description 11/14/2024 Orders Only [facility] Urology [address] [place] [address] Carrie James PA [address] [place] [address] Urinary tract infection with hematuria, site unspecified (Primary Dx) Social History Tobacco Use Types Packs/Day Years Used Date Smoking Tobacco: Former Cigarettes 3 67 1 575 - 2021 Smokeless Tobacco: Never Alcohol Use [...] drink first t herminio in the morning (EYE-CLERK ENTRY LEVEL) to steady your nerves or to get [...] Info) Description 07/13/2025 10:45 AM EDT Appointment [facility] Ultrasound [address] [place] [address] 07/13/2025 12:40 PM EDT Office Visit [facility] [address] [place] [address] Carrie James PA [address] [address] documented as of this encounter [...] documented as of this encounter Care Teams Forestry Contractor Relationship Specialty Start Date End Date Ronny Belle MD [address] [place] [address] PCP - General 07/01/24 Carrie James PA [address] [place] [address] Physician Director Volunteer Services Urology 11/11/24 documented as of this encounter
--- OUTSIDE RECORDS SUMMARY | 2025-01-09 12:01 | XMS_ITS | Encounter Summary ---
Author Organization Healthcare Address [address] [place] [address] Care Team Providers Care Co Teacher Name Role Phone Ronny Belle MD Primary Care Provider [phone] Carrie James Unavailable [phone] Reason for Visit * Reason Onset Date Comments Confirmed Chanegs 12/05/2024 Encounter Details Date Type Department Care Team (Late st Contact Info) Description 12/05/2024 Telephone [facility] [address] [place] [address] Carrie James PA [address] [place] [address] Confirmed [place] Social History Tobacco Use Types Packs/Day Years Used Date Smoking Tobacco: Former Cigarettes 3 67 1 663 - 202 Smokeless Tobacco: Never Alcohol Use [...] drink first t herminio in the morning (EYE-HEAD BATCHER) to steady your nerves or to get [...] at 8:30 am with ES in the [facility] at [address] [facility], [address] documented in this encounter Plan of Treatment Upcoming Encounters Date Type Department Care Team (Late st Contact Info) Description 07/13/2025 10:45 AM EDT Appointment [facility] Ultrasound [address] [place] [address] 07/13/2025 12:40 PM EDT Office Visit [facility] Urology [address] [place] [address] Carrie James PA [address] [place] [address] documented as of this encounter Visit Diagnoses Not on filedocumented in this encounter Additional Health Concerns Assessment Noted Time A fall risk assessment has been complete d for the patient 11/11/2024 10:02 AM EDT A Body Mass Index follow-up plan has been documented for the patient 11/21/2024 3:27 PM EDT documented as of this encounter Care Teams Co Teacher Relationship Specialty Start Date End Date Ronny Belle MD [facility] [place] [address] PCP - General 07/01/24 Carrie James PA [address] [facility] [address] [place] [address] Physician Optometrist Urology 11/11/24 documented as of this encounter
--- OUTSIDE RECORDS SUMMARY | 2025-01-09 12:01 | XMS_ITS | Encounter Summary ---
Author Organization [facility] Address [address] [place] [address] Care Team Providers Care Pmo Lead Name Role Phone Ronny Belle MD Primary Care Provider [phone] Carrie James Unavailable [phone] Encounter Details Date Type Department Care Team (Latest Contact Info) Description 01/06/2025 Travel Social History Tobacco Use Types Packs/Day Years Used Date Smoking Tobacco: Former Cigarettes 3 67 6 930 - 2021 Smokeless Tobacco: Never Alcohol Use [...] drink first t herminio in the morning (EYE-ROVING CAN TENDER) to steady your nerves or to [...] Garcia LPN documented as of this encounter Plan of Treatment Upcoming Encounters Date Type Department Care Team (Late st Contact Info) Description 07/13/2025 10:45 AM EDT Appointment [facility] Ultrasound [address] [place] [address] 07/13/2025 12:40 PM EDT Office Visit [facility] [address] [place] [address] Carrie James PA [address] [place] [address] documented as of this encounter Visit Diagnoses Not on filedocumented in this encounter Additional Health Concerns Assessment Noted Time A fall risk assessment has been complete d for the patient 01/06/2025 9:00 AM EDT A Body Mass Index follow-up plan has been documented for the patient 01/06/2025 9:31 AM EDT documented as of this encounter Care Teams Pmo Lead Relationship Specialty Start Date End Date Ronny Belle MD [facility] [place] [address] PCP - General 07/01/24 Carrie James PA [address] [place] [address] Physician Alliances Consultant Urology 11/11/24 documented as of this encounter
--- OUTSIDE RECORDS SUMMARY | 2025-01-09 12:01 | XMS_ITS | Encounter Summary ---
Author Organization Healthcare Address [address] [place] [address] Care Team Providers Care Adventure Challenge Instructor Name Role Phone Ronny Belle MD Primary Care Provider [phone] Carrie James Unavailable [phone] Reason for Visit * Reason Onset Date Comments HCN Clinical Concern/Question 11/13/2024 Encounter Details Date Type Department Care Team (Late st Contact Info) Description 11/13/2024 Telephone [facility] [address] [place] [address] Carrie James PA [address] [place] [address] HCN Clinical Concern/Question Social History [...] drink first t herminio in the morning (EYE-FISCAL SERVICES DIRECTOR) to steady your nerves or to [...] of the initial request. Best contact number: [phone] (mobile) Optimal time of day to reach [...] will receive notification of the communication/outcome via [employer]. * Telephone Encounter - David Novak - 11/13/2024 3:04 PM EDT Pt and pt daughter are wanting results from 11/11. Urine cx * Telephone Encounter - Tara Corral - 11/13/2024 3:01 PM EDT Clinical Concern/Question Reason for Call: pt daughter asking for lab results for patient Best contact number: Other: [phone] Optimal time of day to reach caller: [...] Info) Description 07/13/2025 10:45 AM EDT Appointment [facility] Ultrasound [address] [place] [address] 07/13/2025 12:40 PM EDT Office Visit [facility] [address] [place] [address] Carrie James PA [address] [address] documented as of this encounter Visit Diagnoses Not on filedocumented in this encounter Additional Health Concerns Assessment Noted Time A fall risk assessment has been complete d for the patient 11/11/2024 10:02 AM EDT A Body Mass Index follow-up plan has been documented for the patient 11/21/2024 3:27 PM EDT documented as of this encounter Care Teams Adventure Challenge Instructor Relationship Specialty Start Date End Date Ronny Belle MD [address] [place] [address] PCP - General 07/01/24 Carrie James PA [address] [place] [address] Physician Clinical Marketing Manager Urology 11/11/24 documented as of this encounter
--- OUTSIDE RECORDS SUMMARY | 2025-01-09 12:01 | XMS_ITS | Clinical Summary ---
Author Organization [facility] Address [address] [place] [address], [address] [place] [address] Care Team Providers Care Transportation Clerk Name Role Phone Ronny Belle MD Primary Care Provider [phone] Allergies Active Allergy Reactions Criticality Noted Date [...] complete this topic Insurance MEDICARE Care Teams Transportation Clerk Relationship Specialty Start Date End Date Ronny Belle MD [address] [place] [address] PCP - General Family Medicine 04/27/22
--- OUTSIDE RECORDS SUMMARY | 2025-01-09 12:01 | XMS_ITS | Encounter Summary ---
Author Organization Healthcare Address [address] [place] [address] Care Team Providers Care Sail Repair Person Name Role Phone Ronny Belle MD Primary Care Provider Carrie James Unavailable Encounter Details Date Type Department Care Team (Late st Contact Info) Description 10/16/2024 Orders Only External Location [address] [place] [id number] Provider, External Social History Tobacco Use Types Packs/Day Years Used Date Smoking Tobacco: Former Cigarettes 3 67 1 445 - 2021 Smokeless Tobacco: Never Alcohol Use [...] drink first t herminio in the morning (EYE-CLEANING CUSTODIAN) to steady your nerves or to get [...] Info) Description 07/13/2025 10:45 AM EDT Appointment [facility] Ultrasound [address], [address] [place] [address] 07/13/2025 12:40 PM EDT Office Visit [facility] [address], [address] [place] [address] Carrie James PA [address] [place] [address] documented as of this encounter Procedures Procedure Name Priority Date/Time Associated Diagnosis Comments US OUTSIDE IMAGES 10/16/2024 9:14 AM EDT documented in this encounter Results * US OUTSIDE IMAGES (10/16/2024 9:14 AM EDT) Anatomical Region Laterality Modality Ultrasound 10/16/2024 9:14 AM EDT us External Provider IMG US PROCEDURES Final Result documented in this encounter Visit Diagnoses Not on filedocumented in this encounter Additional Health Concerns Assessment Noted Time A fall risk assessment has been complete d for the patient 09/02/2024 1:40 PM EDT A Body Mass Index follow-up plan has been documented for the patient 09/02/2024 3:48 PM EDT documented as of this encounter Care Teams Sail Repair Person Relationship Specialty Start Date End Date Ronny Belle MD [address] [place] [address] PCP - General 07/01/24 Carrie James PA [address] [place] [address] Physician Partnership Manager Urology 11/11/24 documented as of this encounter
--- OUTSIDE RECORDS SUMMARY | 2025-01-09 12:01 | XMS_ITS | Encounter Summary ---
Author Organization Healthcare Address [address] [place] [address] Care Team Providers Care Composition Roll Maker And Cutter Name Role Phone Ronny Belle MD Primary Care Provider [phone] Carrie James Unavailable [phone] Reason for Visit * Reason Onset Date Comments Records/Image Request 01/06/2025 Encounter Details Date Type Department Care Team (Late st Contact Info) Description 01/06/2025 Telephone [facility] [address], [address] [place] [address] Carrie James PA [address] [place] [address] Records/Image Request Social History Tobacco Use Types Packs/Day Years Used Date Smoking Tobacco: Former Cigarettes 3 67 1 582 - 2022 Smokeless Tobacco: Never Alcohol Use [...] drink first t herminio in the morning (EYE-EDUCATION PROGRAM COORDINATOR) to steady your nerves or to [...] encounter Miscellaneous Notes * Telephone Encounter - Angy Vinson - 01/06/2025 2:57 PM EDT Discharge summary received and uploaded to media. 12/08/24 XR has been shared. * Telephone Encounter - Naila Hoff - 01/06/2025 9:49 AM EDT ----- Message from KIM Pisano sent at 01/06/2025 9:23 AM EDT ----- [facility] in this encounter Plan of Treatment Upcoming Encounters Date Type Department Care Team (Late st Contact Info) Description 07/13/2025 10:45 AM EDT Appointment [facility] Ultrasound [address], [address] [place] [address] 07/13/2025 12:40 PM EDT Office Visit [facility] [address], [address] [place] [address] Carrie James PA [address] [place] [address] documented as of this encounter Visit Diagnoses Not on filedocumented in this encounter Additional Health Concerns Assessment Noted Time A fall risk assessment has been complete d for the patient 01/06/2025 9:00 AM EDT A Body Mass Index follow-up plan has been documented for the patient 01/06/2025 9:31 AM EDT documented as of this encounter Care Teams Composition Roll Maker And Cutter Relationship Specialty Start Date End Date Ronny Belle MD [address] [place] [address] PCP - General 07/01/24 Carrie James PA [address] [facility] [place] [address] Physician Family Assistant Urology 11/11/24 documented as of this encounter
--- OUTSIDE RECORDS SUMMARY | 2025-01-09 12:01 | XMS_ITS | Clinical Summary ---
Author Organization [facility] Address [address] [place] [address] Care Team Providers Care Interior Design Instructor Name Role Phone Ronny Belle MD Primary Care Provider [phone] Allergies No known active allergies Social History [...] Vaccination (#1) 2024 Insurance MEDICARE Care Teams Interior Design Instructor Relationship Specialty Start Date End Date Ronny Belle MD [address] [place], [place] [id number] PCP - General Family Medicine 04/13/22
--- OUTSIDE RECORDS SUMMARY | 2025-01-09 12:01 | XMS_ITS | Encounter Summary ---
Author Organization Healthcare Address [address] [place] [address] Care Team Providers Care Treasury Manager Name Role Phone Ronny Belle MD Primary Care Provider [phone] Carrie James Unavailable [phone] Reason for Visit * Reason Onset Date Comments HCN Clinical Concern/Question 11/06/2024 HCN Status Update Call #1 11/06/2024 Encounter Details Date Type Department Care Team (Late st Contact Info) Description 11/06/2024 Telephone [facility] [address], [address] [place] [address] Carrie James PA [address] [place] [address] HCN Clinical Concern/Question; HCN Status [...] drink first t herminio in the morning (EYE-INTERNET MANAGER) to steady your nerves or to [...] of the initial request. Best contact number: [phone] Optimal time of day to reach caller: [...] will receive notification of the communication/outcome via [employer]. * Telephone Encounter - Carol Briceno LPN [...] backwith info. Thank you Best contact number: [phone] (mobile) Optimal time of day to reach caller: ANYTIME Additional comments/information from caller: None Note: Please do not reply to this message. Follow-up communication and further actions as a result of this message need to be communicated with the patient directly, if the patient is not active onMyChart. If the patient is active on MyChart, they will receive notification of the communication/outcome via [employer]. documented in this encounter Plan of Treatment Upcoming Encounters Date Type Department Care Team (Late st Contact Info) Description 07/13/2025 10:45 AM EDT Appointment [facility] Ultrasound [address], [address] [place] [address] 07/13/2025 12:40 PM EDT Office Visit [facility] [address], [address] [place] [address] Carrie James PA [address] [place] [address] documented as of this encounter Visit Diagnoses Not on filedocumented in this encounter Additional Health Concerns Assessment Noted Time A fall risk assessment has been complete d for the patient 09/02/2024 1:40 PM EDT A Body Mass Index follow-up plan has been documented for the patient 09/02/2024 3:48 PM EDT documented as of this encounter Care Teams Treasury Manager Relationship Specialty Start Date End Date Ronny Belle MD [facility] [place] [address] PCP - General 07/01/24 Carrie James PA [id number] [place] [address] Physician Batch Weigher Urology 11/11/24 documented as of this encounter
--- OUTSIDE RECORDS SUMMARY | 2025-01-09 12:02 | XMS_ITS | Encounter Summary ---
Author Organization Healthcare Address [address] [place] [address] Care Team Providers Care Morning News Producer Name Role Phone Ronny Belle MD Primary Care Provider [phone] Carrie James Unavailable [phone] Encounter Details Date Type Department Care Team (Late st Contact Info) Description 06/09/2024 Orders Only External Location [address] [place] [address] Provider, External Social History Tobacco Use Types [...] Info) Description 07/13/2025 10:45 AM EDT Appointment [facility] Ultrasound [address], [address] [place] [address] 07/13/2025 12:40 PM EDT Office Visit [place] [facility] [address], [address] [place] [address] Carrie James PA [address] [place] [address] documented as of this encounter Procedures Procedure [...] on filedocumented in this encounter Care Teams Morning News Producer Relationship Specialty Start Date End Date Ronny Belle MD [facility]2 [place] [address] PCP - General 07/01/24 Carrie James PA [address] [facility] [address] [place] [address] Physician House Painter Urology 11/11/24 documented as of this encounter
--- OUTSIDE RECORDS SUMMARY | 2025-01-09 12:02 | XMS_ITS | Encounter Summary ---
Author Organization Healthcare Address [address] [place] [address] Care Team Providers Care Demolition Specialist Name Role Phone Ronny Belle MD Primary Care Provider [phone] Carrie James Unavailable [phone] Encounter Details Date Type Department Care Team (Late st Contact Info) Description 10/13/2024 Orders Only External Location [address] [place] [phone] Provider, External Social History Tobacco Use Types Packs/Day Years Used Date Smoking Tobacco: Former Cigarettes 3 67 1 075 - 2021 Smokeless Tobacco: Never Alcohol Use [...] first t herminio in the morning (EYE-SALES RESEARCH ANALYST) to steady your nerves or to [...] Info) Description 07/13/2025 10:45 AM EDT Appointment [facility] Ultrasound [address], [address] [place] [address] 07/13/2025 12:40 PM EDT [facility] [address], [address] [place] [address] Carrie James PA [address] [place] [address] documented as of this encounter Procedures Procedure Name Priority Date/Time Associated Diagnosis Comments XR OUTSIDE IMAGES 10/13/2024 1:26 PM EDT documented in this encounter Results * XR OUTSIDE IMAGES (10/13/2024 1:26 PM EDT) Anatomical Region Laterality Modality Radiographic Piper ging 10/13/2024 1:26 PM EDT us External Provider IMG XR [...] documented as of this encounter Care Teams Demolition Specialist Relationship Specialty Start Date End Date Ronny Belle MD [address] [place] [address] PCP - General 07/01/24 Carrie James PA [address] [place] [address] Physician Clarifying Plant Operator Urology 11/11/24 documented as of this encounter
--- OUTSIDE RECORDS SUMMARY | 2025-01-09 12:02 | XMS_ITS | Encounter Summary ---
Author Organization Healthcare Address [address] [place] [address] Care Team Providers Care Ice Cream Freezer Helper Name Role Phone Ronny Belle MD Primary Care Provider [phone] Carrie James Unavailable [phone] Encounter Details Date Type Department Care Team (Late st Contact Info) Description 05/20/2024 Orders Only External Location [address] [place] [address] Provider, External Social History Tobacco Use Types [...] Info) Description 07/13/2025 10:45 AM EDT Appointment [facility] Ultrasound [address], [address] [place] [address] 07/13/2025 12:40 PM EDT Office Visit [facility] [address], [address] [place] [address] Carrie James PA [address] [place] [address] documented as of this encounter Procedures Procedure Name Priority Date/Time Associated Diagnosis Comments CT OUTSIDE IMAGES 05/20/2024 9:05 AM EST documented in this encounter Results * CT OUTSIDE IMAGES (05/20/2024 9:05 AM EST) Anatomical Region Laterality Modality Computed Tomogra phy 05/20/2024 9:05 AM EST us External Provider IMG CT PROCEDURES Final Result documented in this encounter Visit Diagnoses Not on filedocumented in this encounter Care Teams Ice Cream Freezer Helper Relationship Specialty Start Date End Date Ronny Belle MD [facility]2 [place] [address] PCP - General 07/01/24 Carrie James PA [address] [facility] [address] [place] [address] Physician Bank Representative Urology 11/11/24 documented as of this encounter
--- OUTSIDE RECORDS SUMMARY | 2025-01-09 12:02 | XMS_ITS | Encounter Summary ---
Author Organization Healthcare Address [address] [place] [address] Care Team Providers Care Accountant Budget Name Role Phone Ronny Belle MD Primary Care Provider [phone] Carrie James Unavailable [phone] Encounter Details Date Type Department Care Team (Late st Contact Info) Description 10/16/2024 Orders Only External Location [address] [place] [address] Provider, External Social History Tobacco Use Types Packs/Day Years Used Date Smoking Tobacco: Former Cigarettes 3 67 1 705 - 2021 Smokeless Tobacco: Never Alcohol Use [...] drink first t herminio in the morning (EYE-CHURCH WARDEN) to steady your nerves or to get [...] Info) Description 07/13/2025 10:[address] [facility] Ultrasound [address], [address]nd [place] [address] 07/13/2025 12:40 PM EDT Office Visit [facility] [address], [address] [place] [address] Carrie James PA [address] [place] [address] documented as of this encounter Procedures Procedure Name Priority Date/Time Associated Diagnosis Comments CT THORACIC OUTSIDE IMAGES 10/16/2024 10:50 AM EDT documented in this encounter Results * CT THORACIC OUTSIDE IMAGES (10/16/2024 10:50 [...] documented as of this encounter Care Teams Accountant Budget Relationship Specialty Start Date End Date Ronny Belle MD [address] [place] [address] PCP - General 07/01/24 Carrie James PA [address] [place] [address] Physician Lift Electrician Urology 11/11/24 documented as of this encounter
--- OUTSIDE RECORDS SUMMARY | 2025-01-09 12:02 | XMS_ITS | Encounter Summary ---
Author Organization Healthcare Address [address] [place] [address] Care Team Providers Care Differential Tester Name Role Phone Ronny Belle MD Primary Care Provider [phone] Carrie James Unavailable [phone] Encounter Details Date Type Department Care Team (Late st Contact Info) Description 05/20/2024 Orders Only External Location [address] [place] [address] Provider, External Social History Tobacco Use Types [...] 07/13/2025 10:45 AM EDT Appointment [facility] Ultrasound [address], [address] [place] [address] 07/13/2025 12:40 PM EDT [facility] [address], [address] [place] [address] Carrie James PA [address] [place] [address] documented as of this encounter Procedures Procedure Name Priority Date/Time Associated Diagnosis Comments XR OUTSIDE IMAGES 05/20/2024 9:41 AM EST documented in this encounter Results * XR OUTSIDE IMAGES (05/20/2024 9:41 AM EST) Anatomical Region Laterality Modality Radiographic Piper ging 05/20/2024 9:41 AM EST us External Provider IMG XR PROCEDURES Final Result documented in this encounter Visit Diagnoses Not on filedocumented in this encounter Care Teams Differential Tester Relationship Specialty Start Date End Date Ronny Belle MD [facility] [place] [address] PCP - General 07/01/24 Carrie James PA [address] [facility] [address] [place] [address] Physician Sr. Manager Corporate Communications Urology 11/11/24 documented as of this encounter
--- OUTSIDE RECORDS SUMMARY | 2025-01-09 12:02 | XMS_ITS | Encounter Summary ---
Author Organization Healthcare Address [address] [place] [address] Care Team Providers Care Investigator Fraud Name Role Phone Ronny Belle MD Primary Care Provider [phone] Carrie James Unavailable [phone] Encounter Details Date Type Department Care Team (Late st Contact Info) Description 05/20/2024 Orders Only External Location [address] [place] [address] Provider, External Social History Tobacco Use Types [...] Info) Description 07/13/2025 10:45 AM EDT Appointment [facility] Ultrasound [address], [address] [place] [address] 07/13/2025 12:40 PM EDT Office Visit [facility] [address], [address] [place] [address] Carrie James PA [address] [place] [address] documented as of this encounter Procedures Procedure Name Priority Date/Time Associated Diagnosis Comments XR OUTSIDE IMAGES 05/20/2024 11:30 AM EST documented in this encounter Results * XR OUTSIDE IMAGES (05/20/2024 11:30 AM EST) Anatomical Region Laterality Modality Radiographic Piper ging 05/20/2024 11:3 0 AM EST us External Provider IMG XR PROCEDURES Final Result documented in this encounter Visit Diagnoses Not on filedocumented in this encounter Care Teams Investigator Fraud Relationship Specialty Start Date End Date Ronny Belle MD [facility] [id number] PCP - General 07/01/24 Carrie James PA [address] [facility] [address] [place] [address] Physician Elementary School Professional Urology 11/11/24 documented as of this encounter
--- OUTSIDE RECORDS SUMMARY | 2025-01-09 12:02 | XMS_ITS | Encounter Summary ---
Author Organization Healthcare Address [address] [place] [address] Care Team Providers Care Automatic Pattern Edger Name Role Phone Ronny Belle MD Primary Care Provider [phone] Carrie James Unavailable [phone] Encounter Details Date Type Department Care Team (Late st Contact Info) Description 08/19/2024 Orders Only External Location [address] [place] [phone] Provider, External Social History Tobacco Use Types [...] first t herminio in the morning (EYE-SUPERVISOR COIN MACHINE) to steady your nerves or to get [...] Info) Description 07/13/2025 10:45 AM EDT Appointment [facility] Ultrasound [address], [address]nd [place] [address] 07/13/2025 12:40 PM EDT Office Visit [facility] [address], [address] [place] [address] Carrie James PA [address] [place] [address] documented as of this encounter Procedures Procedure Name Priority Date/Time Associated Diagnosis Comments CT THORACIC OUTSIDE IMAGES 08/19/2024 10:44 AM EDT documented in this encounter Results * CT THORACIC OUTSIDE IMAGES (08/19/2024 10:44 AM EDT) Anatomical Region Laterality Modality Computed Tomogra phy 08/19/2024 10:4 4 AM EDT us External Provider IMG CT [...] documented as of this encounter Care Teams Automatic Pattern Edger Relationship Specialty Start Date End Date Ronny Belle MD [address] [place] [address] PCP - General 07/01/24 Carrie James PA [address] [facility] [address] [place] [address] Physician Fur Nailer Urology 11/11/24 documented as of this encounter
--- OUTSIDE RECORDS SUMMARY | 2025-01-09 12:02 | XMS_ITS | Encounter Summary ---
Author Organization Healthcare Address [address] [place] [address] Care Team Providers Care Patient Safety Sitter Name Role Phone Ronny Belle MD Primary Care Provider [phone] Carrie James Unavailable [phone] Encounter Details Date Type Department Care Team (Late st Contact Info) Description 05/08/2024 Orders Only External Location [address] [place] [address] Provider, External Social History Tobacco Use Types [...] 07/13/2025 10:45 AM EDT Appointment [facility] Ultrasound [address], [address] [place] [address] 07/13/2025 12:40 PM EDT Office Visit [facility] [address], [address] [place] [address] Carrie James PA [address] [place] [address] documented as of this encounter Procedures Procedure Name Priority Date/Time Associated Diagnosis Comments XR OUTSIDE IMAGES 05/08/2024 11:22 AM EST documented in this encounter Results * XR OUTSIDE IMAGES (05/08/2024 11:22 AM EST) Anatomical Region Laterality Modality Radiographic Piper ging 05/08/2024 11:2 2 AM EST us External Provider IMG XR PROCEDURES Final Result documented in this encounter Visit Diagnoses Not on filedocumented in this encounter Care Teams Patient Safety Sitter Relationship Specialty Start Date End Date Ronny Belle MD [facility] [id number] PCP - General 07/01/24 Carrie James PA [address] [facility] [address] [place] [address] Physician Complex Director Urology 11/11/24 documented as of this encounter
[2025-01-10 09:44] LABS: RA Latex Turbid. 15.9 IU/mL (<14.0)
== END 2025-01-08 23:59 | disposition home or self-care (01) ==
LOC: LAB.DROPOF 01-09 11:59
PROVIDERS: PCP Family Medicine; Visit Provider Family Medicine
DX: D50.9 Iron deficiency anemia, unspecified (principal); I10 Essential (primary) hypertension; M79.89 Other specified soft tissue disorders
CPT/HCPCS: 80053; 83540; 83550; 84550; 85025; 85651; 86038; 86140; 86431

== ENCOUNTER 2025-02-16 10:36 | Outpatient (CLI) | payer MEDICARE, SELFPAY ==
--- OUTSIDE RECORDS SUMMARY | 2025-01-06 07:30 | XMS_ITS | Encounter Summary ---
Author Organization [facility] Address [address] [place] [address] Care Team Providers Care Material Control Specialist Name Role Phone Ronny Belle MD Primary Care Provider [phone] Carrie James Unavailable [phone] Reason for Referral * Imaging (Routine) - Authorized Specialty Diagnoses / Procedures Referred By Contac t Referred To Contact Radiology Diagnoses Urinary retention Procedures US Renal Complete Carrie James PA [address] [address] Phone: tel: fax: Referral ID Status Reason Start Date Expiration Date V isits Requested Visits Authorized [id number] Authorized 01/06/2025 07/08/2026 1 1 Reason for Visit * Reason Comments Follow-up UTI UTI Encounter Details Date Type Department Care Team (Late st Contact Info) Description 01/06/2025 8:30 AM EDT Office Visit [place] [facility] [address] [place] [address] Carrie James PA [address] [address] Benign prostatic hyperplasia with incomplete [...] drink first t herminio in the morning (EYE-TIRE MAN) to steady your nerves or to get [...] Info) Description 07/13/2025 10:45 AM EDT Appointment [facility] Ultrasound [address] [place] [address] 07/13/2025 12:40 PM EDT Office Visit [facility] Urology [address] [place] [address] Carrie James PA [address] [place] [address] Scheduled Orders Name Type Priority [...] Urine Color Yellow 01/06/2025 8:[address] [facility] POCT Urine Clarity Clear 01/06/2025 8:[address] [facility] POCT Urine Glucose Negative Negative mg/dL 01/06/2025 8:[address] [facility] POCT Urine Bilirubin Negative Negative mg/dL 01/06/2025 8:[address] [facility] POCT Urine Ketones Negative Negative mg/dL 01/06/2025 8:[address] [facility] POCT Urine Specific [place] 1.010 1.005 - 1.030 01/06/2025 8:[address] [facility] POCT Urine Blood Negative Negative 01/06/2025 8:[address] [facility] POCT pH, Urine 5.5 5.0 - 8.0 01/06/2025 8:[address] [facility] POCT Protein, Urine Negative Negative mg/dL 01/06/2025 8:[address] [facility] POCT Urobilinogen, Urine 0.2 0.2, 1.0 EU/dL 01/06/2025 8:[address] [facility] POCT Nitrite, Urine Negative Negative 01/06/2025 8:[address] [facility] POCT Urine Leukocyte Esterase Trace(A) Negative 01/06/2025 8:[address] [facility] Urine 01/06/2025 8:52 AM EDT 01/06/2025 8:53 AM EDT Carrie ALVAREZ LAB POINT OF CARE T EST DOCKED DEVICE UNSOLICITED RESULTS Final Result Performing Organization Address City/State/[facility] Co de Phone Number [facility] [address], [place] * POC US Bladder Volume (01/06/2025) [...] documented as of this encounter Care Teams Material Control Specialist Relationship Specialty Start Date End Date Ronny Belle MD [address] [place] [address] PCP - General 07/01/24 Carrie James PA [id number] [place] [phone] Physician Seafood Preparer Urology 11/11/24 documented as of this encounter
[2025-02-16] MEDS: IRON SUCROSE COMPLEX 200 MG in 0.9 % SODIUM CHLORIDE 100 ML 220 MG IV (10:45)
[2025-02-16 10:49] VITALS: BP 111/58; PULSE 79; RESP 19; O2SAT 95
--- OUTSIDE RECORDS SUMMARY | 2025-02-16 10:56 | XMS_ITS | Clinical Summary ---
Author Organization [facility] Address [address] [place] [address] Care Team Providers Care Chemical Waste Management Technician Name Role Phone Ronny Belle MD Primary Care Provider [phone] Allergies No known active allergies Social History [...] Planning 04/09/2024 Depression Screening 04/09/2024 COVID-19 Vaccine (2024- season) 2024 Influenza Vaccination (#1) 2024 Insurance MEDICARE Care Teams Chemical Waste Management Technician Relationship Specialty Start Date End Date Ronny Belle MD [address] [place], [place] [id number] PCP - General Family Medicine 04/13/22
--- OUTSIDE RECORDS SUMMARY | 2025-02-16 10:56 | XMS_ITS | Clinical Summary ---
Author Organization [facility] Address [address] [place] [address], [address] [place] [address] Care Team Providers Care Caddy/Caddie Supervisor Name Role Phone Ronny Belle MD Primary Care Provider [phone] Allergies Active Allergy Reactions Criticality Noted Date [...] complete this topic Insurance MEDICARE Care Teams Caddy/Caddie Supervisor Relationship Specialty Start Date End Date Ronny Belle MD [address] [place] [address] PCP - General Family Medicine 04/27/22
--- OUTSIDE RECORDS SUMMARY | 2025-02-16 10:57 | XMS_ITS | Clinical Summary ---
Author Organization [facility] [place] [address] Care Team Providers Care Director Loan Name Role Phone Unavailable Primary Care Provider [...] 75+ series) 10/29/2015 COVID-19 Vaccine ( - 2024-2 6 season) 2024 Influenza Vaccine (#1) 2024 Hepatitis B Vaccine Aged Out No longe r eligible based on patient's age to complete this topic Meningococcal B Vaccine Aged Out No l onger eligible based on patient's age to complete this topic
--- OUTSIDE RECORDS SUMMARY | 2025-02-16 10:57 | XMS_ITS | Encounter Summary ---
Author Organization Healthcare Address [address] [place] [address] Care Team Providers Care Dolphin Researcher Name Role Phone Ronny Belle MD Primary Care Provider [phone] Carrie James Unavailable [phone] Reason for Visit * Reason Onset Date Comments Records/Image Request 01/06/2025 Encounter Details Date Type Department Care Team (Late st Contact Info) Description 01/06/2025 [facility]phone [facility] [address] [place] [address] Carrie James PA [address] [place] [address] Records/Image Request Social History Tobacco Use Types Packs/Day Years Used Date Smoking Tobacco: Former Cigarettes 3 67 1 348 - 2022 Smokeless Tobacco: Never Alcohol Use [...] drink first t herminio in the morning (EYE-DISPLAY AND BANNER DESIGNER) to steady your nerves or to [...] [facility] Plan of Treatment Upcoming Encounters Date Type Department Care Team (Late st Contact Info) Description 07/13/2025 10:45 AM EDT Appointment [facility] Ultrasound [address] [place] [address] 07/13/2025 12:40 PM EDT Office [facility] [address] [place] [address] Carrie James PA [address] [place] [address] documented as of this encounter Visit Diagnoses Not on filedocumented in this encounter Additional Health Concerns Assessment Noted Time A fall risk assessment has been complete d for the patient 01/06/2025 9:00 AM EDT A Body Mass Index follow-up plan has been documented for the patient 01/06/2025 9:31 AM EDT documented as of this encounter Care Teams Dolphin Researcher Relationship Specialty Start Date End Date Ronny Belle MD [address] [place] [address] PCP - General 07/01/24 Carrie James PA [address] [facility] [place] [address] Physician Assurance Sourcing Manager Urology 11/11/24 documented as of this encounter
--- OUTSIDE RECORDS SUMMARY | 2025-02-16 10:57 | XMS_ITS | Encounter Summary ---
Author Organization [facility] Address [address] [place] [address] Care Team Providers Care Dealership Manager Name Role Phone Ronny Belle MD Primary Care Provider [phone] Carrie James Unavailable [phone] Encounter Details Date Type Department Care Team (Latest Contact Info) Description 01/06/2025 Travel Social History Tobacco Use Types Packs/Day Years Used Date Smoking Tobacco: Former Cigarettes 3 67 7 974 - 2021 Smokeless Tobacco: Never Alcohol Use [...] drink first t herminio in the morning (EYE-DIE TECHNICIAN) to steady your nerves or to [...] Info) Description 07/13/2025 10:45 AM EDT Appointment [facility] Ultrasound [address] [place] [id number] 07/13/2025 12:40 PM EDT Office Visit [facility] [address] [place] [address] Carrie James PA [address] [place] [address] documented as of this encounter Visit Diagnoses Not on filedocumented in this encounter Additional Health Concerns Assessment Noted Time A fall risk assessment has been complete d for the patient 01/06/2025 9:00 AM EDT A Body Mass Index follow-up plan has been documented for the patient 01/06/2025 9:31 AM EDT documented as of this encounter Care Teams Dealership Manager Relationship Specialty Start Date End Date Ronny Belle MD [facility] [place] [address] PCP - General 07/01/24 Carrie James PA [address] [place] [address] Physician Commissary Manager Urology 11/11/24 documented as of this encounter
--- OUTSIDE RECORDS SUMMARY | 2025-02-16 10:57 | XMS_ITS | Encounter Summary ---
Author Organization Healthcare Address [address] [place] [address] Care Team Providers Care Plant And Maintenance Technician Name Role Phone Ronny Belle MD Primary Care Provider [phone] Carrie James Unavailable [phone] Encounter Details Date Type Department Care Team (Late st Contact Info) Description 10/16/2024 Orders Only External Location [address] [place] [id number] Provider, External Social History Tobacco Use Types Packs/Day Years Used Date Smoking Tobacco: Former Cigarettes 3 67 1 425 - 2021 Smokeless Tobacco: Never Alcohol Use [...] drink first t herminio in the morning (EYE-ASSOCIATE SOFTWARE DEVELOPER) to steady your nerves or to [...] Info) Description 07/13/2025 10:45 AM EDT Appointment [facility] Ultrasound [address] [place] [address] 07/13/2025 12:40 PM EDT [facility] Visit [facility] [address] [place] [address] Carrie James PA [address] [place] [address] documented as of this encounter [...] documented as of this encounter Care Teams Plant And Maintenance Technician Relationship Specialty Start Date End Date Ronny Belle MD [address] [place] [address] PCP - General 07/01/24 Carrie James PA [address] [place] [phone] Physician Marketing Compliance Manager Urology 11/11/24 documented as of this encounter
--- OUTSIDE RECORDS SUMMARY | 2025-02-16 10:57 | XMS_ITS | Data Portability ---
Author Organization [facility] Address [address] [place] [address] Assessment Encounter Date Assessment Date Assessment LastModified by Organization Details LastModified Time 05/07/2017 05/07/2017 Nicotine Dependence ,smoking cessation discussed at length Patient has smoked since age 15 BPH Rx Leslye Discontinue Finasteride due to on going nocturia [email or web address] Not available 05/07/2017 17:37:51 04/18/2021 04/18/2021 F/U as needed [email or web address] [id number] Not available 04/18/2021 15:56:26 Plan of Treatment Reminders Order Date Submit Date Provider Last Modified By Organization Details Last Modified Time Details Appointments None recorde d. Lab rapid SARS CoV + SARS CoV 2 Ag, QL IA, respira tory specime n 2021 022 [email or web address] [facility], [address] [place], [address], 2 15:56:27 PSA, serum or plasma 2017 018 ZAK [facility], [address], Mario Alberto F, [place], [address], 8 08:42:46 PSA, serum or plasma 2016 017 sneus [facility], [address], Mario Alberto F, [place], [address], 7 12:58:35 lipid panel, serum 2016 017 sneus [facility], [address], Mario Alberto F, [place], [address], 7 12:58:35 CMP, serum or plasma 2016 017 sneus [facility], [address], Mario Alberto F, [place], [address], 7 12:58:35 Referral None recorde d. Procedures None recorde d. Surgeries None recorde d. Imaging None recorde d. Medication Orders Lotrel 10 mg-20 mg capsule [address], [address], 8 20:31:03 Lipitor 20 mg tablet [address], [address], 8 20:31:03 Zetia 10 mg tablet [address], [address], 8 20:31:03 Leslye 0.5 mg-0.4 mg capsule , extende d release [address], [address], 8 20:31:03 finaste ride 5 mg tablet [address], [address], 8 17:04:32 Lotrel 10 mg-20 mg capsule [address], [address], 7 12:58:35 Zetia 10 mg tablet [email or web address], [address], 7 12:58:35 Lipitor 20 mg tablet [email or web address], [address], 7 12:58:35 Lincoci n 300 mg/mL injecti on solutio n 2015 [address], [address], 7 17:45:41 dexamet hasone sodium phospha te 10 mg/mL injecti on solutio n 2015 [address], [address], 7 17:45:48 Patient TargetsNo targets recorded. Patient Instructions Encounter Date Encounter Id Patient Instructions Last Modified By Organization Details Last Modified Time 01/27/2016 [id number] keep well hydrated, cool mist humidifer, no smoking [email or web address] Not available 01/27/2016 13:54:18 05/07/2017 [id number] Quitting Tobacco : Care Instructions [email or web address] Not available 05/07/2017 20:31:03 smoking cessatio n counseling, greater than 3 minutes up to 10 minutes* [email or web address] Not available 05/14/2017 08:25:34 high blood pressure: care instructions sneus Not available 05/07/2017 20:31:03 learning about high blood pressure sneus Not available 05/07/2017 20:31:03 high cholesterol : care instructions sneus Not available 05/07/2017 20:31:03 benign prostatic hyperplasia: care instructions sneus Not available 05/07/2017 20:31:03 Reason for Referral None Reported. Results Created Date Observation Date Name Description Value Unit Range Abnormal Flag Note LastModifiedBy Organization Detail LastModifiedTime 05/04/19 17 05/04/2016 CMP, serum or plasm a glucose, serum 77 mg/dL 65-99 SPECI MEN RECEI LEE IN CONTA CT WITH CELLS . NO VISIB LE HEMOL YSIS PRESE NT. HOWEV ER GLUC MAY BE DECRE ASED AND K INCRE ASED. CLINI [facility]AK[facility] CORRE LATIO N INDIC ATED. Not Available [facility] ([facility]) [address] [place], [address], 05/04/2016 08:45:29 05/04/19 17 05/04/2016 CMP, serum or plasm a BUN 13 mg/dL 8-27 Not Available [facility] ([facility]) [address] [place], [address], 05/04/2016 08:45:29 05/04/19 17 05/04/2016 CMP, serum or plasm a creatinine, serum 1.12 mg/dL 0.76-1 .27 Not Available [facility] ([facility]) [address] [facility], [place], [address], 05/04/2016 08:45:29 05/04/19 17 05/04/2016 CMP, serum or plasm a eGFR if nonafricn AM 64 mL/mi n/1.7 3 >59 Not Available [facility] ([facility]) [address] [facility], [place], [address], 05/04/2016 08:45:29 05/04/19 17 05/04/2016 CMP, serum or plasm a eGFR if africn AM 74 mL/mi n/1.7 3 >59 Not Available [facility] ([facility]) [address] [place], [address], 05/04/2016 08:45:29 05/04/19 17 05/04/2016 CMP, serum or plasm a BUN/creatini ne ratio 12 10-22 Not Available [facility] ([facility]) [address] [place], [address], 05/04/2016 08:45:29 05/04/19 17 05/04/2016 CMP, serum or plasm a sodium, serum 142 mmol/ L 134-14 4 Not Available [facility] ([facility]) [address] [place], [address], 05/04/2016 08:45:29 05/04/19 17 05/04/2016 CMP, serum or plasm a potassium, serum 4.7 mmol/ L 3.5-5. 2 Not Available [facility] ([facility]) [address] [place], [address], 05/04/2016 08:45:29 05/04/1905/04/2016 CMP, serum or plasm a chloride, serum 100 mmol/ L 96-106 Not Available [facility] ([facility]) [address] [place] [address], [address], 05/04/2016 08:45:29 05/04/19 17 05/04/2016 CMP, serum or plasm a carbon dioxide, total 22 mmol/ L 18-29 Not Available [facility] ([facility]) [address] [place] [address], [address], 05/04/2016 08:45:29 05/04/19 17 05/04/2016 CMP, serum or plasm a calcium, serum 9.2 mg/dL 8.6-10 .2 Not Available [facility] ([facility]) [address] [place], [address], 05/04/2016 08:45:29 05/04/1905/04/2016 CMP, serum or plasm a protein, total, serum 6.8 g/dL 6.0-8. 5 Not Available [facility] ([facility]) [address] [place] [address], [address], 05/04/2016 08:45:29 05/04/1905/04/2016 CMP, serum or plasm a albumin, serum 4.4 g/dL 3.5-4. 8 Not Available [facility] ([facility]) [address] [facility] [place], [address], 05/04/2016 08:45:29 05/04/19 17 05/04/2016 CMP, serum or plasm a globulin, total 2.4 g/dL 1.5-4. 5 Not Available [facility] ([facility]) [address] [facility] [place], [address], 05/04/2016 08:45:29 05/04/19 17 05/04/2016 CMP, serum or plasm a A/G ratio 1.8 1.1-2. 5 Not Available [facility] ([facility]) [address] [facility] [place], [address], 05/04/2016 08:45:29 05/04/19 17 05/04/2016 CMP, serum or plasm a bilirubin, total 0.4 mg/dL 0.0-1. 2 Not Available [facility] ([facility]) [address] [place], [address], 05/04/2016 08:45:29 05/04/1905/04/2016 CMP, serum or plasm a alkaline phosphatase, S 84 IU/L 39-117 Not Available [facility] ([facility]) [address] [place], [address], 05/04/2016 08:45:29 05/04/19 17 05/04/2016 CMP, serum or plasm a AST (SGOT) 19 IU/L 0-40 Not Available [facility] ([facility]) [address] [place], [address], 05/04/2016 08:45:29 05/04/1905/04/2016 CMP, serum or plasm a ALT (SGPT) 15 IU/L 0-44 Not Available [facility] ([facility]) [address] [facility], [address], 05/04/2016 08:45:29 05/04/1905/04/2016 lipid panel , serum cholesterol, total 143 mg/dL 100-19 9 Not Available [facility] ([facility]) [address] [place], [address], 05/04/2016 08:45:30 05/04/19 17 05/04/2016 lipid panel , serum triglyceride s 161 mg/dL 0-149 above high normal Not Available [facility] ([facility]) [address] [place], [address], 05/04/2016 08:45:30 05/04/19 17 05/04/2016 lipid panel , serum HDL cholesterol 48 mg/dL >39 Not Available [facility] ([facility]) [address] [place], [address], 05/04/2016 08:45:30 05/04/19 17 05/04/2016 lipid panel , serum VLDL cholesterol nakia 32 mg/dL 5-40 Not Available [facility] ([facility]) [address] [place], [address], 05/04/2016 08:45:30 05/04/1905/04/2016 lipid panel , serum LDL cholesterol calc 63 mg/dL 0-99 Not Available [facility] ([facility]) [address] [place], [address], 05/04/2016 08:45:30 05/04/1905/04/2016 lipid panel , serum comment: ARTIST COLOR SEPARATION Not Available [facility] ([facility]) [address] [place], [address], 05/04/2016 08:45:30 05/04/1905/04/2016 PSA, serum or plasm a prostate specific Ag, serum 3.1 NG/mL 0.0-4. 0 SAURAV ECLIA METHO DOLOG Y. ACCOR BALA TO THE AMERI CAN UROLO GICAL ASSOC IATIO N, SERUM PSA SHOUL D DECRE ASE AND REMAI N AT UNDET ECTAB LE LEVEL S AFTER RADIC AL PROST ATECT TUAN. THE AUA DEFIN ES BIOCH EMICA L RECUR RENCE AN INITI AL PSA VALUE 0.2 NG/ML OR GREAT ER FOLLO WED BY A SUBSE QUENT CONFI RMATO RY PSA VALUE 0.2 NG/ML OR GREAT ER. VALUE S OBTAI RYAN WITH DIFFE RENT ASSAY METHO DS OR KITS CANNO T BE USED INTER [facility] . RESUL TS CANNO T BE INTER PRETE D ABSOL HOLY [place]OSS EVIDE NCE OF THE PRESE NCE OR ABSEN CE OF [facility] SE. Not Available [facility] ([facility]) [address] [facility], [place], [address], 05/04/2016 08:45:31 05/04/19 17 05/04/2016 parminder e note please note COMMEN T THE DATE AND/O R TIME OF COLLE CTION WAS NOT INDIC ATED ON THE REQUI SITIO N REQUI RED BY STATE AND [place] LAW. THE DATE OF RECEI PT OF THE SPECI MEN WAS USED THE COLLE CTION DATE IF NOT SUPPL IED. Not Available [facility] ([facility]) [address] [facility], [place], [address], 05/04/2016 08:45:31 05/07/19 18 05/08/2017 PSA, serum or plasm a prostate specific Ag, serum 2.7 NG/mL 0.0-4. 0 Saurav ECLIA metho dolog y. Accor ding to the Ameri can Urolo gical Assoc iatio n, Serum PSA shoul d decre ase and remai n at undet ectab le level s after radic al prost atect tuan. The AUA defin es bioch emica l recur rence as an initi al PSA value 0.2 ng/mL or great er follo wed by a subse quent confi rmato ry PSA value 0.2 ng/mL or great er. Value s obtai ryan with diffe rent assay metho ds or kits canno t be used inter [facility] . Resul ts canno t be inter prete d as absol hoopa evide nce of the prese nce or absen ce of [facility] dise se. Not Available [facility] ([facility]) [address], [place], [address], 05/08/2017 08:42:46 04/18/1904/18/2021 rapid SARS CoV + SARS CoV 2 Ag, QL IA, respi rator y speci men SARS CoV antigen Negati ve Not Available [facility] [address] [place], [address], 04/18/2021 13:07:32 Result Notes None recorded. Problems Name Problem SNOMED Code Status Onset Date Resolution Date Notes Provider Name and Address Organization Details Recorded Time Hyperlipidemia 96697729 Active 2015 Crystal Bibi [place], [place] - [facility] 6 12:56:25 Essential hypertension 60480194 Active 2015 Crystal Bibi [place], [place] - [facility] 6 12:56:31 Benign prostatic hyperplasia 664810909 Active 2015 Crystal Bibi [place], [place] - [facility] 6 12:56:57 Slowing of urinary stream 58775320 Active 2015 Crystal Bibi [place], [place] - [facility] 6 12:57:10 Nicotine dependence 74623339 Active 2017 Rosa Deleon in [place], [place] - [facility] 8 16:53:50 Problem Notes Documentation Provider Name and Address Organization Details Recorded Time Hospital Consult Note : [facility] REPORT #: [id number] REPORT STATUS: Signed DATE: 07/06/21 TIME: 1533 PATIENT: MANOJ ONTIVEROS UNIT #: [id number] ROOM/BED: 319-A AGE: 80 SEX: M ATTEND: Maria G KMA,Bryce Deluna ADM AUTHOR: Ru Dietrich APRN * ALL edits or amendments must be made on the electronic/computer document * History of Present Illness Date of Service: 07/06/21 Requesting Clinician: Dr. Maria G MD. Reason for consult: Ventricular Tachycardia. Dizziness. HFpEF Chief complaint: Dizziness HPI: Manoj is an 80-year-old male who we have been consulted with in regard to ventricular tachycardia, dizziness, and congestive heart failure. The patient has a history significant for hypertension, hyperlipidemia, tobacco abuse, and benign prostatic hyperplasia. The patient presented today to the [facility] Emergency Department after a one day history of dizziness with trouble walking. The patient is a 60 year history of smoking. The patient has associated shortness of breath. The patient reports that his symptoms are worse when standing, and improved when sitting or lying down. The patient had difficulty walking and felt weak. The patient arrived to the emergency department and was found to have nonsustained episodes of ventricular tachycardia with frequent PVCs, and a BNP of 298. The patient's initial troponin was negative. The patient was admitted for dizziness, congestive heart failure, and ventricular tachycardia. Initially, the patient's echocardiogram was relatively unremarkable with normal LV ejection fraction. Results are pending for carotid studies and a CT of the brain. Echocardiogram: 06/2021 revealed normal LVEF of 65% to 70% with mild-to- moderate concentric hypertrophy of left ventricle and impaired relaxation consistent with diastolic dysfunction. Aortic valve not well visualized. Coronary angiography: None prior, patient denies prior testing. Medications: Home Medications: Medication Dose/Rte/Freq Days Qty Entered Last Max Daily Dose Reviewed Ezetimibe (Zetia) 10 MG PO DAILY 07/06/21 07/06/21 Strength: 10 MG TABLET 1405 1407 amLODIPine 1 CAP PO DAILY 07/06/21 07/06/21 BESYLATE/BENAZEPRIL 1406 1407 (LOTREL 10-20 MG ) Strength: 10 MG/20 MG CAP ATORVASTATIN CALCIUM 20 MG PO DAILY 07/06/21 07/06/21 (LIPITOR) 1406 1407 Strength: 20 MG TABLET DUTASTERIDE/TAMSULOSIN 1 CAP PO DAILY 07/06/21 07/06/21 HCL 1407 1407 (LESLYE 0.5-0.4 MG) Strength: 1 EACH CAPSULE Current Hospital Medications: Sig/Brenda Start time Last Medication Dose Route Stop Time Status Admin Lisinopril 20 MG DAILY 07/07 0900 AC PO Tamsulosin HCl 0.4 MG HS 07/06 2100 AC PO Amiodarone HCl 200 ML UD 07/06 1600 UNVr IV Amiodarone HCl 100 ML X1 STA 07/06 1530 UNVr IV 07/06 1544 Clopidogrel Bisulfate 75 MG DAILY 07/06 1400 AC 07/06 PO 1446 Acetaminophen 650 MG Q6HP PRN 07/06 1200 AC PO Al Hydrox/Mg Hydrox/ 30 ML Q4HP PRN 07/06 1200 AC Simethicone PO Docusate Sodium 100 MG BIDP PRN 07/06 1200 AC PO Magnesium Hydroxide 30 ML DP PRN 07/06 1200 AC PO Ondansetron HCl 4 MG Q8HP PRN 07/06 1200 AC IV Sodium Chloride 10 ML PRN PRN 07/06 1200 AC IV Aspirin 81 MG DAILY 07/06 1141 AC 07/06 PO 1447 Furosemide 40 MG BID 07/06 1141 DC IV Magnesium Sulfate 50 ML .STK-MED ONE 07/06 0938 DC IV Lidocaine HCl 0 .STK-MED ONE 07/06 0937 DC .ROUTE Allergies: Coded Allergies: Penicillins (Intermediate, SWELLING OF HANDS 07/06/21) Review of Systems Constitutional: generalized weakness, malaise, Denies chills, Denies fatigue, Denies fever, Denies lethargy Respiratory: Reports: BELLA (dyspnea on exertion), SOB. Denies: hemoptysis, non productive cough, parox nocturnal dyspnea, pleurisy, pleuritic pain, productive cough ( sputum), wheezing. Cardiovascular: Reports: dyspnea on exertion. Denies: chest pain, edema, orthopnea, palpitations, parox nocturnal dyspnea, unstable angina. Neuro: dizziness, gait problem, lightheaded, weakness. Denies: bladder dysfunction, bowel dysfunction, change in LOC, confusion, numbness, seizure, slurred speech, spinning sensation, syncope, vision change. Systems reviewed negative: Allergy/Immun, Endocrine, ENT, Eyes, GI, , Heme, Musculoskeletal, Psych, Skin Objective Physical Exam VS/I O: Vital Signs Result Date Time Pulse Ox 94 07/06 1320 B/P 125/56 07/06 1320 O2 Delivery ROOM AIR 07/06 1320 Temp 97.8 07/06 1320 Pulse 67 07/06 1320 Resp 24 07/06 1320 General appearance: alert, awake, no acute distress, conversant, face symmetrical, MS normal, oriented Head/Eyes: atraumatic, normocephalic ENT: normal pharynx, moist mucosal membranes Neck: non-tender, no bruit/NL carotids, no JVD, supple/no meningismus Cardiovascular: normal capillary refill, normal heart sounds, no heave, no murmur, no rub, irregular rate and rhythm, irregularly irregular Respiratory: clear to auscultation, no distress, symmetric expansion, decreased breath sounds Abdomen: soft, non-tender, no guarding, no rebound, no distention Abdomen quadrants: LLQ normal bowel sounds, LUQ normal bowel sounds, RLQ normal bowel sounds, RUQ normal bowel sounds Extremities: moves all, no edema, normal capillary refill, no calf tenderness, no clubbing, no cyanosis Neuro/TOOL DESIGN CHECKER: alert, oriented X 3, normal speech Skin: dry, warm Psychiatry: normal affect, normal judgment/insight, normal mood Results Findings/Data: Laboratory Tests: 07/06 07/06 07/06 07/06 1050 0942 0940 UNK Chemistry Sodium (136 - 145 mmol/L) 139 Potassium (3.5 - 5.1 mmol/L) 4.7 Chloride (98 - 107 mmol/L) 104 Carbon Dioxide (24 - 33 mmol/L) 26 Anion Gap (10 - 20 mmol/L) 13.7 BUN (7 - 18 mg/dL) 26 *H Creatinine (0.70 - 1.30 mg/dl) 1.46 *H Estimated GFR (>60 mL/min) 46 *L Est GFR ( Amer) (>60 mL/min) 56 *L BUN/Creatinine Ratio (12 - 20) 17 Glucose (70 - 99 mg/dL) 96 Calculated Osmolality (272 - 288 mOSM/kg) 282 Calcium (8.5 - 10.1 mg/dL) 8.4 *L Magnesium (1.8 - 2.4 mg/dL) 3.2 *H Total Bilirubin (0.2 - 1.0 mg/dL) 0.4 AST (15 - 37 U/L) 17 ALT (16 - 63 U/L) 34 Total Alk Phosphatase (46 - 116 U/L) 73 Troponin I (0 - 0.056 ng/ml) <0.017 B-Natriuretic Peptide (0 - 100 pg/mL) 298 *H Total Protein (6.4 - 8.2 g/dL) 6.1 *L Albumin (3.4 - 5.0 g/dL) 3.1 *L Globulin (1.5 - 4.0 g/dL) 3.0 Albumin/Globulin Ratio (0.5 - 2.0) 1.0 TSH (0.36 - 3.74 uIU/ml) 1.38 Coagulation D-Dimer (0 - 400 DDUng/mL) <100 Hematology WBC (4.5 - 13.0 10e3/uL) 10.3 RBC (4.10 - 5.70 10e6/uL) 4.49 Hgb (12.0 - 16.9 g/dl) 13.8 Hct (36.0 - 49.0 %) 41.3 MCV (78.0 - 98.0 fL) 92 MCH (25.0 - 35.0 Pg) 30.7 MCHC (31.0 - 36.0 g/dL) 33.4 RDW (11.0 - 15.0 %) 13.0 Plt Count (150 - 400 10e3/uL) 258 Neut % (Auto) (35 - 75 %) 65 Knox % (Auto) (0 - 15 %) 9 Nucleat RBC Rel Count (/100 WBC) 0.0 Neut # (Auto) (1.50 - 8.00 x1000/uL) 6.68 Immature Gran % (0 - 1) 0 Lymphocytes % (10 - 50 %) 23 Eosinophils % (0 - 5 %) 2 Basophils % (0 - 5 %) 0 Immature Gran # (0 - 0.05 x1000/uL) 0.01 Lymphocytes # (1.20 - 5.20 x1000/uL) 2.37 Monocytes # (0.30 - 0.90 x1000/uL) 0.96 *H Eosinophils # (0.00 - 0.50 x1000/uL) 0.25 Basophils # (0.00 - 0.30 x1000/uL) 0.03 Serology SARS-CoV-2 Ag (Rapid) (NEGATIVE) NEGATIVE Recent Impressions: RADIOLOGY - CHEST PORTABLE 07/06 1000 Report Impression - Status: SIGNED Entered: 07/06/2021 1212 IMPRESSION: 1. No evidence of acute cardiopulmonary disease. Impression By: DR.HAGJE Oli MONTERROSO MD ECHOCARDIOGRAPHY - ECHO W/SPEC/COLOR FLOW 07/06 1200 Report Impression - Status: SIGNED Entered: 07/06/2021 1521 Impression: 1. Technically difficult study, with Limited ultrasound windows obtained. Left ventricular chamber appears to be within normal limits with normal left ventricular systolic function at 65-70%. There is mild to moderate concentric hypertrophy of the left ventricle. There is Doppler evidence for impaired relaxation of the left ventricle 2. Endocardium not well visualized in some views, but no apparent segmental wall motion abnormalities 3. Mild right atrial enlargement, with normal left atrial size 4. Mild right ventricular chamber dilatation with normal right ventricular systolic function 5. Mild mitral annular calcification with normal mitral valve leaflet mobility and function. There is no apparent mitral insufficiency 6. Aortic valve not well visualized 7. No pericardial effusion 8. Normal aortic root 9. Normal tricuspid valve with tricuspid regurgitant jet velocity less than 2.0 m/s implying normal right ventricular systolic pressure Impression By: DR.LOHER Oli SILVA MD Results: labs reviewed, EKG personally reviewed, rhythm personally rev'd Telemetry Interpretation: Telemetry: NSR with frequent PVCs, rate between 80 and 100 BPM. 1 run of nonsustained VT for 7 beats. EKG: NSR with a rate of 82 BPM, frequent PVCs, 2 PVC couplets, Ventricular Bigeminy, PRWP, nonspecific TWA. Diagnosis, Assessment Plan Dx/Assessment/Plan: Impression: 1. Ventricular tachycardia, nonsustained. 2. Ventricular bigeminy. 3. Premature ventricular contractions. 4. Diastolic dysfunction. 5. Essential hypertension. 6. Hyperlipidemia. 7. Bradycardia. 8. Tobacco abuse. 9. Heart failure with preserved ejection fraction, acute on chronic. Plan: 1. Start amiodarone. 2. Rule out acute coronary syndrome. 3. Consider left heart catheterization tomorrow. 4. Defer remaining care to the hospitalist team at this time. As always, we appreciate the opportunity to provide consultation on your patients. Portions of this note were transcribed by Ru [email or web address] APRN. I, Dr. Liang Silva, personally performed the history, physical exam, and medical decision making, and confirmed the accuracy of the information in the transcribed note. Plan discussed with: patient at 3081 at 7809 RPT #: [id number] END OF REPORT CC'ed Logic: Attending Provider: MARIA G GRAY Referring Provider: PHYSICIAN NO Consulting Provider: SHALINI Hewitt Admitting Provider: MARIA G Espinal, ROOFER APPRENTICE [address], [place], [address], [place] - [facility] 07/11/2021 13:39:19 Procedures Surgical History Date Name Laterality Status Provider Name and Address Organization Details Recorded Time Prostate Surgery completed Crystal Bibi [place] - [facility] 6 12:58:00 Imaging Results None recorded. Procedure Notes None recorded. Medical Equipment None Reported. Allergies Allergen ID Allergen Name Allergen Category Reaction Reaction Severity Criticality Documentation Date Start Date Code Code System Note Provider Name and Address Organization Details Recorded Time 57774 Product containin g penicilli n (product) medicatio n Not available Not available Not available 01/14/20162008 85405 8001 SNOMED Not Available [facility] 6 10:04:02 Medications Name Sig Start Date Stop Date Status Note LastModified by Organization Details LastModified Time atorvasta tin 20 mg tablet TAKE ONE (1) TABLET BY MOUTH EVERY DAY active Not Available Not Available No t Available lisinopri l 20 mg-hydroc hlorothia zide 12.5 mg tablet take 1 tablet by oral route once daily for 30 days 08/29 completed lisinopr il-hydro chloroth iazide 20-12.5 mg oral tablet;R ecorded Status: Recorded on: 06/26/19 12 10:32AM; Disconti nued Status: Disconti nued on: 08/30/19 12 3:37PM;U ser: gored;Es t. Completi on: 09/24/19 12;Indic ation: Hyperten demetrius - (4019 00);Prin germán: 06/26/19 12 Not Available Not Available Not Available Zithromax Z-Duane 250 mg tablet Take 2 tablets the first day (500 mg) followed by 1 tablet (250 mg) days 2-5. for 5 days 02/13 completed Zithroma x Z-Duane 250 mg oral tablet;R ecorded Status: Recorded on: 02/09/20 15 1:46PM;U ser: gored;Es t. Completi on: 02/14/20 15;Print ed: 02/09/20 15 Not Available Not Available Not Available Zocor 10 mg tablet take 1 tablet (10 mg) by oral route once daily in the evening for 30 days 02/25 completed Zocor 10 mg oral tablet;R ecorded Status: Recorded on: 02/20/20 12 4:11PM;D iscontin ued Status: Disconti nued on: 02/26/20 14 10:51AM; User: neuss;Es t. Completi on: 03/21/20 12;Print ed: 02/20/20 12 Not Available Not Available Not Available tamsulosi n 0.4 mg capsule TAKE 1 CAPSULE BY MOUTH EVERY DAY IN PLACE OF [facility] FOR PROSTATE active Not Available Not Available No t Available Cipro 500 mg tablet take 1 tablet (500 mg) by oral route 2 times per day for 10 days 05/19 completed Cipro 500 mg oral tablet;R ecorded Status: Recorded on: 02/26/20 14 10:12AM; Disconti nued Status: Disconti nued on: 05/19/19 15 9:12AM;U ser: gored;Es t. Completi on: 03/07/20 14;Print ed: 02/26/20 14 Not Available Not Available Not Available Lincocin 300 mg/mL injection solution Take 1 mL by injectio n route. 05/03 completed Not Available Not Available Not Available dexametha sone sodium phosphate 10 mg/mL injection solution Take 0.4 mL by injectio n route. 05/03 completed Not Available Not Available Not Available finasteri de 5 mg tablet TAKE 1 TABLET DAILY 05/07 completed Not Available Not Available Not Available Bactrim DS 800 mg-160 mg tablet take 1 tablet by oral route 2 times per day for 10 days 06/27 completed Bactrim DS 800-160 mg oral tablet;R ecorded Status: Recorded on: 06/28/19 12 5:29PM;D iscontin ued Status: Disconti nued on: 06/28/19 12 5:29PM;U ser: neuss Not Available Not Available Not Available amlodipin e 10 mg-benaze pril 20 mg capsule TAKE 1 CAPSULE BY MOUTH EVERY DAY active Not Available Not Available No t Available ezetimibe 10 mg tablet TAKE 1 TABLET BY MOUTH EVERY DAY active Not Available Not Available No t Available guaifenes in 400 mg tablet take 2 tablets by oral route 3 times a day for 7 days 06/25 completed guaifene sin 400 mg oral tablet;R ecorded Status: Recorded on: 03/24/20 11 11:27AM; Disconti nued Status: Disconti nued on: 06/26/19 12 10:17AM; User: Stanford Tavera on: 03/31/20 11;Print ed: 03/24/20 11 Not Available Not Available Not Available Lyrica 100 mg capsule take 1 capsule (100 mg) by oral route 3 times per day for 30 days 03/06 completed Lyrica 100 mg oral capsule; Recorded Status: Recorded on: 07/26/19 12 3:54PM;D iscontin ued Status: Disconti nued on: 03/06/20 12 10:34AM; User: cleo;Eloisa Tavera on: 11/23/19 12;Indic ation: Postherp etic Neuralgi a - (01.0531 90) Not Available Not Available Not Available lisinopri l-hydroch lorothiaz haider qd 02/25 completed prinizid e ; Recorded Status: Recorded on: 03/06/20 12 11:45AM; Disconti nued Status: Disconti nued on: 02/26/20 14 10:51AM; User: Remigio Tavera on: 07/05/19 13;Indic ation: htn - (-5) Not Available Not Available Not Available Chantix Starting Month Duane 0.5 mg (11)-1 mg (42) tablets in dose pack take as directed for 30 days 03/24 completed Chantix Starting Month Duane 0.5 mg (11)- 1 mg (42) oral tablets, dose pack;Rec orded Status: Recorded on: 07/22/19 09 4:24PM;D iscontin ued Status: Disconti nued on: 03/24/20 11 11:10AM; User: cleo;Eloisa agrawalMonie Completi on: 11/19/19 09;Indic ation: Smoking Cessatio n - (7380 04) Not Available Not Available Not Available dutasteri de 0.5 mg-tamsul osin ER 0.4 mg capsule ext.relea se 24hr mphas TAKE 1 CAPSULE BY MOUTH EVERY DAY active Not Available Not Available No t Available Vitals Date Recorded Body temperature Heart rate Oxygen saturation Oxygen saturation in Arterial blood by Pulse oximetry Respiratory rate Provider Name and Address Organization Details Last Updated DateTime 2 99.8 [degF] 89 /min 93 % 93 % 20 /min Dasha Hall [facility] 2 15:19:49 Date Recorded Body height Body weight Body mass index (BMI) Heart rate Respiratory rate Systolic And Diastolic Provider Name and Address Organization Details Last Updated DateTime 7 180.34 cm 77704.8 4 g 28.5 kg/m2 72 /min 18 /min 118/66 mm[Hg] Jenny Woodward [facility] 7 17:16:12 Date Recorded Body height Body mass index (BMI) Body weight Heart rate Respiratory rate Systolic And Diastolic Provider Name and Address Organization Details Last Updated DateTime 8 180.34 cm 28.6 kg/m2 87845.4 4 g 80 /min 18 /min 120/80 mm[Hg] Jenny Woodward [facility] 8 16:29:45 Date Recorded Body height Body weight Body mass index (BMI) Heart rate Oxygen saturation Oxygen saturation in Arterial blood by Pulse oximetry Body temperature Systolic And Diastolic Provider Name and Address Organization Details Last Updated DateTime 6 175.26 cm 93784.1 7 g 31.5 kg/m2 79 /min 90 % 90 % 98.3 [degF] 112/72 mm[Hg] Jeannette Mtz [place] - [facility] 6 13:02:04 Social History Question Answer Notes LastModified by Organizat ion Details LastModified Time Tobacco Smoking Status Current Every Day Smoker Jeannette Dislarod [place], [place] - [facility] 01/27/2016 12:57:45 Which Illicit Or Recreational Drugs Have You Used? Never [email or web address] Information not available 04/28/2016 Legally Blind In One Or Both Eyes? No [email or web address] Information no t available 04/28/2016 What Was The Date Of Your Most Recent Tobacco Screening? 05/07/2017 Information not available 10/30/2018 What Is Your Relationship Status? [email or web address] Information not available 04/28/2016 Smoke Alarm In Home Yes [email or web address] Information not available 04/28/2016 How Much Tobacco Do You Smoke? 1 PPD [email or web address] Information not available 01/27/2016 Sex: Unknown Functional Status Question Answer Note LastModified by Organizat ion Details LastModified Time Are you currently employed? No [email or web address] Information not available 04/28/2016 Are you able to care for yourself independently? Yes [email or web address] Information not available 04/28/2016 What is your occupation? retired [email or web address] Information not available 04/28/2016 What is your exercise level? Occasional Information not available 04/28/2016 Mental Status None recorded. Family History Relationship Description Onset Age of this Age Resolved Age Notes LastModified by Organization Details LastModified Time Unspecified Relation Neoplasm of lung [email or web address] Not available 2015 12:57:33 Unspecified Relation Type 2 diabetes mellitus [email or web address] Not available 2015 12:57:40 Medical History Condition Response Hyperlipidemia Y Hypertension Y Past Encounters Encounter ID Performer Location Encounter Start Date Encounter Closed Date Diagnosis/Indication Diagnosis SNOMED-CT Code Diagnosis ICD10 Code Diagnosis IMO Codes Diagnosis Note [id number] Joanne IraMARCELINO [place] [address] [place] [address] 01/27/2016 12:42:56 01/27/2016 14:26:23 Upper respiratory infection 30435776 J06.9 [id number] Ronny Belle MD [facility] [address] [place] [address] 05/03/2016 14:53:22 05/04/2016 10:45:20 Hyperlipidemia 52947586 E78.5 Delay when starting to pass urine 2012004 R39.11 Renewal of prescription 840914935 Z76.0 [id number] Ronny Belle MD [facility] [address] [place] [address] 05/07/2017 14:44:15 05/07/2017 17:29:27 Benign prostatic hyperplasia 259548734 N40.0 Essential hypertension 13846828 I10 Nicotine dependence 5629 4008 F17.200 Delay when starting to pass urine 5427944 R39.11 Hyperlipidemia 02487276 E78.5 [id number] Elissa Espinal APRN [facility] [address] [place] [address] 04/18/2021 15:02:10 04/18/2021 15:58:59 Viral screening 390698347 Z11.52 Health Concerns Section Related Observation LastModified by Organization Detai ls LastModified Time None Recorded Concern Status LastModified by Organization Details LastModified Time None Recorded Advance Directives Directive None Recorded Payers Insurance Date Sequence Insurance Name Policy Number Policy Baron Covered Member ID Baron Member ID Guarantor Name 06/23/2021 1 [employer] (MEDICARE REPLACEMENT/A DVANTAGE - PPO) Manoj Ontiveros [id number] Manoj Ontiveros Notes Date Note Type Note Provider Name and Address Organization Details Recorded Time 6 text/html Upper Respiratory SymptomsReported by Patientcough, runny nose, sore throat. Started 1 week ago.ROS as noted in the HPI Joanne PINEDA Berg [facility] 01/27/2016 13:54:37 7 text/html Care Management - HyperlipidemiaReported by PatientHPIFor prognosis, patient reportsexpected outcome: improveandprognosis: good. For self care, patient reportsrecent hospitalization/er visit? no. For control, patient reportsimproving. For complications, patient reportsno coronary artery disease,no heart attack,no cardiovascular disease,no pancreatitis, andno stroke. PINEDA Perez [facility] 05/09/2016 13:53:09 8 text/html Care Management - HypertensionReported by PatientHPIFor prognosis, patient reportsexpected outcome: no changeandprognosis: good. For severity, patient reportsno change since last visit. For associated symptoms, patient reportsno dizziness,no lightheadedness,no chest pain,no shortness of breath,no palpitations,no edema,no calf muscle cramps,no blurred vision,no confusion,no headaches, andno fatigue. For self care, (calcium channel you). Care Management - HyperlipidemiaReported by PatientHPIFor control, patient reportsnot at goalbut reportsimproving. For prognosis, patient reportsexpected outcome: improveandprognosis: guarded. For complications, patient reportsno coronary artery disease,no heart attack,no cardiovascular disease,no pancreatitis, andno stroke. For self care, (calcium channel you). elevated psa Ronny Belle [facility], [place] - [facility] 05/09/2017 09:18:35 2 text/html Patient presents for rapid COVID test. Denies known exposure. Currently asymptomatic. Elissa Espinal, ROOFER APPRENTICE [address], [place], [address], [facility] - [facility] 04/18/2021 15:56:58
--- OUTSIDE RECORDS SUMMARY | 2025-02-16 10:57 | XMS_ITS | Encounter Summary ---
Author Organization Healthcare Address [address] [place] [address] Care Team Providers Care Residential Energy Auditor Name Role Phone Ronny Belle MD Primary Care Provider [phone] Carrie James Unavailable [phone] Encounter Details Date Type Department Care Team (Late st Contact Info) Description 10/13/2024 Orders Only External Location [address] [place] [address] Provider, External Social History Tobacco Use Types Packs/Day Years Used Date Smoking Tobacco: Former Cigarettes 3 67 1 665 - 2021 Smokeless Tobacco: Never Alcohol Use [...] drink first t herminio in the morning (EYE-TILE MOLDER) to steady your nerves or to get [...] Info) Description 07/13/2025 10:45 AM EDT Appointment [facility] Ultrasound [address] [place] [address] 07/13/2025 12:40 PM EDT Office Visit [place] [facility] [address], [address] [place] [address] Carrie James PA [address] [place] [address] documented as of this encounter [...] documented as of this encounter Care Teams Residential Energy Auditor Relationship Specialty Start Date End Date Ronny Belle MD [address] [place] [address] PCP - General 07/01/24 Carrie James PA [address] [place] [address] Physician Shower Maid Urology 11/11/24 documented as of this encounter
--- OUTSIDE RECORDS SUMMARY | 2025-02-16 10:57 | XMS_ITS | Encounter Summary ---
Author Organization Healthcare Address [address] [place] [address] Care Team Providers Care Willow Specialists Name Role Phone Ronny Belle MD Primary Care Provider [phone] Carrie James Unavailable [phone] Encounter Details Date Type Department Care Team (Late st Contact Info) Description 10/16/2024 Orders Only External Location [address] [place] [phone] Provider, External Social History Tobacco Use Types Packs/Day Years Used Date Smoking Tobacco: Former Cigarettes 3 67 1 165 - 2021 Smokeless Tobacco: Never Alcohol [...] drink first t herminio in the morning (EYE-TOP COATER) to steady your nerves or to get [...] Center Ultrasound [address], [address] [place] [address] 07/13/2025 12:40 PM EDT Office Visit [place] [facility] [address], [address] [place] [address] Carrie James PA [address] [place] [address] documented as of this encounter [...] documented as of this encounter Care Teams Willow Specialists Relationship Specialty Start Date End Date Ronny Belle MD [address] [place] [address] PCP - General 07/01/24 Carrie James PA [address] [place] [address] Physician Advertising Sales Representative Urology 11/11/24 documented as of this encounter
--- OUTSIDE RECORDS SUMMARY | 2025-02-16 10:57 | XMS_ITS | Encounter Summary ---
Author Organization Healthcare Address [address] [place] [address] Care Team Providers Care State Farm Agent Team Member Name Role Phone Ronny Belle MD Primary Care Provider [phone] Carrie James Unavailable [phone] Encounter Details Date Type Department Care Team (Late st Contact Info) Description 05/08/2024 Orders Only External Location [address] [place] [address] Provider, External Social History Tobacco Use Types [...] Info) Description 07/13/2025 10:45 AM EDT Appointment [facility] Ultrasound [address] [place] [address] 07/13/2025 12:40 PM EDT Office Visit [place] [facility] [address], [address] [place] [address] Carrie James PA [address] [place] [address] documented as of this encounter Procedures Procedure [...] on filedocumented in this encounter Care Teams State Farm Agent Team Member Relationship Specialty Start Date End Date Ronny Belle MD [facility] [place] [id number] PCP - General 07/01/24 Carrie James PA [address] [facility] [address] [place] [address] Physician Forest Pathology Teacher Urology 11/11/24 documented as of this encounter
--- OUTSIDE RECORDS SUMMARY | 2025-02-16 10:57 | XMS_ITS | Clinical Summary ---
Author Organization [facility] Address [address] [place] [address] Care Team Providers Care Cardiovascular Surgeon Name Role Phone Ronny Belle MD Primary Care Provider [phone] Carrie James Unavailable [phone] Allergies Active Allergy Reactions Criticality Noted Date [...] Description 01/06/2025 8:30 AM EDT Office Visit [facility] Urology [address], [address] [place] [address] Carrie James PA Benign prostatic hyperplasia with incomplete bladder emptying (Primary Dx) 01/06/2025 Telephone [facility] Urology [address], [address] [place] [address] Carrie James PA Records/Image Request 01/06/2025 Travel 12/08/2024 Orders Only External Location [address] [place] [address] Provider, External 12/05/2024 Telephone [facility] Urology [address], [address] [place] [address] Carrie James PA Confirmed Chanegs from Last 3 Months Social History Tobacco [...] drink first t herminio in the morning (EYE-GLOBAL PROCESS OWNER) to steady your nerves or to get [...] Info) Description 07/13/2025 10:45 AM EDT Appointment [facility] Ultrasound [address], [address] [place] [address] 07/13/2025 12:40 PM EDT Office Visit [place] [facility] [address], [address] [place] [address] Carrie James, PA [address] [place] [address] Health Maintenance Due Date Last Done Comments [facility]-Medicare Annual Wellness (AWV) 1940 [facility]-/Child/Adol SDOH Screenings 1940 [facility]- SDOH Screenings 1958 [facility]-Adult SDOH Screenings 1958 [facility]-DTaP,Tdap,and Td Vaccines (1 - Tdap) 10/29/1959 [facility]-Pneumococcal Vaccine: 50+ Years (1 of 1 - PCV) 1990 [facility]-Zoster Vaccines (1 of 2) 1990 [facility]-RSV Vaccine: 60+ Years or (1 - 1-dose 75+ series) 10/29/2015 [facility]-YNLOG-15 Vaccine (2024- season) 2024 01/25/2022, 02/09/2021, 07/01/2020, [...] OUTSIDE IMAGES 12/08/2024 12: 48 PM EDT from Last 3 Months Results * (ABNORMAL) POCT URINALYSIS DIPSTICK (01/06/2025 8:52 AM EDT) POCT Urine Color Yellow 01/06/2025 8:53 AM EDT [facility] POCT Urine Clarity Clear 01/06/2025 8:53 AM EDT [facility] POCT Urine Glucose Negative Negative mg/dL 01/06/2025 8:53 AM EDT [facility] POCT Urine Bilirubin Negative Negative mg/dL 01/06/2025 8:53 AM EDT [facility] POCT Urine Ketones Negative Negative mg/dL 01/06/2025 8:53 AM EDT [facility] POCT Urine Specific Aubrey 1.010 1.005 - 1.030 01/06/2025 8:53 AM EDT [facility] POCT Urine Blood Negative Negative 01/06/2025 8:53 AM EDT [facility] POCT pH, Urine 5.5 5.0 - 8.0 01/06/2025 8:53 AM EDT [facility] POCT Protein, Urine Negative Negative mg/dL 01/06/2025 8:53 AM EDT [facility] POCT Urobilinogen, Urine 0.2 0.2, 1.0 EU/dL 01/06/2025 8:53 AM EDT [facility] POCT Nitrite, Urine Negative Negative 01/06/2025 8:53 AM EDT [facility] POCT Urine Leukocyte Esterase Trace(A) Negative 01/06/2025 8:53 AM EDT [facility] Urine 01/06/2025 8:52 AM EDT 01/06/2025 8:53 AM EDT Carrie ALVAREZ LAB POINT OF CARE T EST DOCKED DEVICE UNSOLICITED RESULTS Final Result Performing Organization Address City/State/[facility] Co de Phone Number [facility] [address] [place], [place] * POC US Bladder Volume (01/06/2025) Urine, Volume 165 mL IMAGING Anatomical Region Laterality Modality Other Urine 01/06/2025 Carrie ALVAREZ IMG POINT OF CARE ULTRASOUN D Final Result * XR OUTSIDE IMAGES (12/08/2024 12:48 PM EDT) Anatomical Region Laterality Modality Radiographic Piper ging 12/08/2024 12:4 8 PM EDT us External Provider IMG XR PROCEDURES Final Result from Last [address] [place] [id number] [employer] MEDICARE Advance Directives * Full Code (Latest Code Status on File) Date Activated Date Inactivated Comments 08/22/2024 4:19 PM 08/23/2024 6:07 PM Question Answer Comments I have reviewed the capacity from the link above and, if needed, have updated to appropriate status: Yes Care Teams Cardiovascular Surgeon Relationship Specialty Start Date End Date Ronny Belle MD [facility] [place] [address] PCP - General 07/01/24 Carrie James PA [address] [facility] [address] [place] [address] Physician Manager Park Urology 11/11/24
--- OUTSIDE RECORDS SUMMARY | 2025-02-16 10:57 | XMS_ITS | Encounter Summary ---
Author Organization Healthcare Address [address] [place] [address] Care Team Providers Care E Learning Designer Name Role Phone Ronny Belle MD Primary Care Provider [phone] Carrie James Unavailable [phone] Encounter Details Date Type Department Care Team (Late st Contact Info) Description 06/09/2024 Orders Only External Location [address] [place] [address] Provider, External Social History Tobacco Use Types [...] 07/13/2025 10:45 AM EDT Appointment [facility] Ultrasound [address], [address] [place] [address] 07/13/2025 12:40 PM EDT [facility] [address], [address] [place] [address] Carrie James PA [address] [place] [address] documented as of this encounter Procedures Procedure [...] on filedocumented in this encounter Care Teams E Learning Designer Relationship Specialty Start Date End Date Ronny Belle MD [facility] [place] [address] PCP - General 07/01/24 Carrie James PA [address] [facility] [address] [place] [address] Physician Bean Snipper Urology 11/11/24 documented as of this encounter
--- OUTSIDE RECORDS SUMMARY | 2025-02-16 10:57 | XMS_ITS | Encounter Summary ---
Author Organization Healthcare Address [address] [place] [address] Care Team Providers Care Lime Kiln Tender Name Role Phone Ronny Belle MD Primary Care Provider [phone] Carrie James Unavailable [phone] Encounter Details Date Type Department Care Team (Late st Contact Info) Description 05/20/2024 Orders Only External Location [address] [place] [address] Provider, External Social History Tobacco Use Types [...] Info) Description 07/13/2025 10:45 AM EDT Appointment [facility] Ultrasound [address], [address] [place] [address] 07/13/2025 12:40 PM EDT Office Visit [facility] [address], [address] [place] [address] Carrie James PA [address] [place] [address] documented as of this encounter Procedures Procedure [...] on filedocumented in this encounter Care Teams Lime Kiln Tender Relationship Specialty Start Date End Date Ronny Belle MD [facility] [place] [address] PCP - General 07/01/24 Carrie James PA [address] [facility] [address] [place] [address] Physician Doormaker Urology 11/11/24 documented as of this encounter
--- OUTSIDE RECORDS SUMMARY | 2025-02-16 10:57 | XMS_ITS | Encounter Summary ---
Author Organization Healthcare Address [address] [place] [address] Care Team Providers Care Tub Chucker Name Role Phone Ronny Belle MD Primary Care Provider [phone] Carrie James Unavailable [phone] Encounter Details Date Type Department Care Team (Late st Contact Info) Description 12/08/2024 Orders Only External Location [address] [place] [address] Provider, External Social History Tobacco Use Types Packs/Day Years Used Date Smoking Tobacco: Former Cigarettes 3 67 1 945 - 2021 Smokeless Tobacco: Never Alcohol Use [...] drink first t herminio in the morning (EYE-ORE DRESSING ENGINEER) to steady your nerves or to [...] Description 07/13/2025 10:45 AM EDT Appointment [facility] Ultrasound [address], [address] [place] [address] 07/13/2025 12:40 PM EDT Office Visit [place] [facility] [address], [address] [place] [address] Carrie James PA [address] [place] [address] documented as of this encounter [...] documented as of this encounter Care Teams Tub Chucker Relationship Specialty Start Date End Date Ronny Belle MD [address] [place] [address] PCP - General 07/01/24 Carrie James PA [address] [place] [address] Physician Founder & Ceo Urology 11/11/24 documented as of this encounter
--- OUTSIDE RECORDS SUMMARY | 2025-02-16 10:57 | XMS_ITS | Encounter Summary ---
Author Organization Healthcare Address [address] [place] [address] Care Team Providers Care Nursing Officer Name Role Phone Ronny Belle MD Primary Care Provider [phone] Carrie James Unavailable [phone] Encounter Details Date Type Department Care Team (Late st Contact Info) Description 05/20/2024 Orders Only External Location [address] [place] [address] Provider, External Social History Tobacco Use Types [...] Info) Description 07/13/2025 10:45 AM EDT Appointment [facility] Ultrasound [address], [address] [place] [address] 07/13/2025 12:40 PM EDT Office Visit [place] [facility] [address], [address] [place] [address] Carrie James PA [address] [place] [address] documented as of this encounter Procedures Procedure [...] on filedocumented in this encounter Care Teams Nursing Officer Relationship Specialty Start Date End Date Ronny Belle MD [facility] [place] [address] PCP - General 07/01/24 Carrie James PA [address] [facility] [address] [place] [address] Physician Help Desk Manager Urology 11/11/24 documented as of this encounter
--- OUTSIDE RECORDS SUMMARY | 2025-02-16 10:57 | XMS_ITS | Encounter Summary ---
Author Organization Healthcare Address [address] [place] [address] Care Team Providers Care Contact Lens Molder Name Role Phone Ronny Belle MD Primary Care Provider [phone] Carrie James Unavailable [phone] Encounter Details Date Type Department Care Team (Late st Contact Info) Description 08/19/2024 Orders Only External Location [address] [place] [phone] Provider, External Social History Tobacco Use Types [...] drink first t herminio in the morning (EYE-SLAG MIXER) to steady your nerves or to get [...] 07/13/2025 10:45 AM EDT Appointment [facility] Ultrasound [address], [address] [place] [address] 07/13/2025 12:40 PM EDT Office Visit [place] [facility] [address], [address] [place] [address] Carrie James PA [address] [place] [address] documented as of this encounter [...] documented as of this encounter Care Teams Contact Lens Molder Relationship Specialty Start Date End Date Ronny Belle MD [address] [place] [address] PCP - General 07/01/24 Carrie James PA [address] [facility] [address] [place] [address] Physician Engineering Systems Analyst Urology 11/11/24 documented as of this encounter
--- OUTSIDE RECORDS SUMMARY | 2025-02-16 10:57 | XMS_ITS | Data Portability ---
Author Organization MD - [facility] - [facility] Address [address] [place] [address] Assessment Encounter Date Assessment Date Assessment LastModified [...] would like to be seen by a belt buckle maker for document review attorney . EKG at follow-up. Follow-up in 3 to 4 months. . -Continue other current medications. -Continue aggressive risk factor modification. -Recommend LDL less than 70. -Encouraged regular exercise and activity. . . . . This note was dictated using [employer] software. If something is unclear, or does not make sense, please do not hesitate to contact our office at [phone] for clarification. . Not available 02/01/2022 14:30:18 [...] . . This note was dictated using [employer] software. If something is unclear, or does not make sense, please do not hesitate to contact our office at [phone] for clarification. . Not available 05/29/2022 15:52:26 Plan of Treatment Reminders Order Date Submit Date Provider Last Modified By Organization Details Last Modified Time Details Appointments None recorded. Lab T4, free, serum 2021 022 [email or web address] 1 [facility] (Centralized Scheduling), [address], [place], [address], 2 10:48:15 TSH, serum or plasma 2021 022 [email or web address] 1 [facility] (Centralized Scheduling), [address], [place], [address], 10:48:16 CMP, serum or plasma 2021 ZAK Jenkins (Centralized Scheduling), [address] [place] [address] , [place], [address], 15:37:51 Referral None recorded. Procedures None recorded. Surgeries None recorded. Imaging electrocard iogram 2022 023 [email or web address] [facility], [address] [place] [address] [address], [place], [address], 3 14:29:09 PFT, complete 2021 022 [email or web address] [address] [place] [address] , [place], [address], 10:48:28 CT, chest, w/o contrast 2021 022 [email or web address] 1 [facility] (Centralized Scheduling), [address] [place] [address] , [place], [address], 10:48:28 [facility]card iogram 2021 [email or web address], [address] [place] [address] [address], [place], [address], 2 13:55:51 Medication Orders amiodarone 200 mg tablet 2021 022 [email or web address] [facility], [address] [place] [address], [address], 2 11:11:21 Patient TargetsNo targets recorded. Patient InstructionsNo instructions recorded. Reason for Referral None Reported. Results Created Date Observation Date Name Description Value Unit Range Abnormal Flag Note LastModifiedBy Organization Detail LastModifiedTime 01/10/2001/09/2022 COMP METAB OLIC PANEL note See Note Order ing Provi amy: Delbert Padilla is PHYSICAL THERAPY INSTRUCTOR Not Available [address], [place], [address], 01/09/2022 15:37:51 01/10/20 22 01/09/2022 COMP METAB OLIC PANEL sodium 138 mmol/ L 136-14 5 normal Not Available [address], [place], [address], 01/09/2022 15:37:51 01/10/20 22 01/09/2022 COMP METAB OLIC PANEL potassium 4.8 mmol/ L 3.5-5. 1 normal Not Available [address], [place], [address], 01/09/2022 15:37:51 01/10/20 22 01/09/2022 COMP METAB OLIC PANEL chloride 104 mmol/ L 98-107 normal Not Available [address], [place], [address], 01/09/2022 15:37:51 01/10/20 22 01/09/2022 COMP METAB OLIC PANEL carbon dioxide 25 mmol/ L 24-33 normal Not Available [address], [place], [address], 01/09/2022 15:37:51 01/10/20 22 01/09/2022 COMP METAB OLIC PANEL anion gap 13.8 mmol/ L 10-20 normal Not Available [address], [place], [address], 01/09/2022 15:37:51 01/10/20 22 01/09/2022 COMP METAB OLIC PANEL glucose 86 mg/dL 70-99 normal Not Available [address], [place], [address], 01/09/2022 15:37:51 01/10/20 22 01/09/2022 COMP METAB OLIC PANEL blood urea nitrogen 21 mg/dL 7-18 high Not Available [address] , [place], [address], 01/09/2022 15:37:51 01/10/20 22 01/09/2022 COMP METAB OLIC PANEL creatinine 1.19 mg/dL 0.70-1 .30 normal Not Available [address] , [place], [address], 01/09/2022 15:37:51 01/10/20 22 01/09/2022 COMP METAB OLIC PANEL BUN/creatini ne ratio 17 12-20 normal Not Available [address] , [place], [address], 01/09/2022 15:37:51 01/10/20 22 01/09/2022 COMP METAB OLIC PANEL total protein 6.3 g/dL 6.4-8. 2 low Not Available [address], [place], [address], 01/09/2022 15:37:51 01/10/20 22 01/09/2022 COMP METAB OLIC PANEL albumin 3.0 g/dL 3.4-5. 0 low Not Available [address], [place], [address], 01/09/2022 15:37:51 01/10/20 22 01/09/2022 COMP METAB OLIC PANEL globulin 3.3 g/dL 1.5-4. 0 normal Not Available [address], [place], [address], 01/09/2022 15:37:51 01/10/20 22 01/09/2022 COMP METAB OLIC PANEL albumin/glob ulin ratio 0.9 0.5-2. 0 normal Not Available [address], [place], [address], 01/09/2022 15:37:51 01/10/20 22 01/09/2022 COMP METAB OLIC PANEL calcium 8.3 mg/dL 8.5-10 .1 low Not Available [address] , [place], [address], 01/09/2022 15:37:51 01/10/20 22 01/09/2022 COMP METAB OLIC PANEL osmolality serum calculated 277 mOsm/ kg 272-28 8 normal Not Available [address] [place], [address], 01/09/2022 15:37:51 01/10/20 22 01/09/2022 COMP METAB OLIC PANEL glom filtr rate (estimated) 59 mL/mi n >60 low Not Available [address] [place], [address], 01/09/2022 15:37:51 01/10/20 22 01/09/2022 COMP METAB OLIC PANEL GFR est (if -amer ican) > 60 mL/mi n >60 normal Not Available [address] , [place], [address], 01/09/2022 15:37:51 01/10/20 22 01/09/2022 COMP METAB OLIC PANEL bilirubin total 0.2 mg/dL 0.2-1. 0 normal Use of this assay is not recom charlee d for patie nts under going treat ment with Eltro mbopa g due to the poten tial for false ly eleva germán resul ts. Not Available [address] [place], [address], 01/09/2022 15:37:51 01/10/20 22 01/09/2022 COMP METAB OLIC PANEL SGOT/AST 15 U/L 15-37 normal Not Available [address] [place], [address], 01/09/2022 15:37:51 01/10/20 22 01/09/2022 COMP METAB OLIC PANEL SGPT/ALT 25 U/L 16-63 normal Not Available [address] , [place], [address], 01/09/2022 15:37:51 01/10/20 22 01/09/2022 COMP METAB OLIC PANEL alkaline phosphatase total 108 U/L 46-116 normal Not Available [address] , [place], [address], 01/09/2022 15:37:51 01/10/20 22 01/09/2022 COMP METAB OLIC PANEL performing lab see note - [facility] [address] [facility] [address] Not Available [address] , [place], [address], 01/09/2022 15:37:51 01/10/20 22 01/09/2022 THYRO ID PANEL W/TSH note See Note Order ing Provi amy: Delbert Padilla is PHYSICAL THERAPY INSTRUCTOR Not Available [address] , [place], [address], 01/09/2022 15:37:51 01/10/20 22 01/09/2022 THYRO ID PANEL W/TSH T4 free 1.24 NG/dL 0.76-1 .46 normal This test may be affec germán by high level s of bioti n, found in some presc ripti on and over- the-c ounte r suppl ement s. [place], patie nts glenys luna disco ntinu e bioti n 3 days befor e testi ng. Resul ts obtai ryan after recen t bioti n inges tion glenys luna be inter prete d with cauti on. Not Available [address] , [place], [address], 01/09/2022 15:37:51 01/10/20 22 01/09/2022 THYRO ID PANEL W/TSH thyroid stimulating hormone 2.02 uIU/m L 0.36-3 .74 normal This test may be affec germán by high level s of bioti n, found in some [facility] ripti on and over- the-c ounte r suppl ement s. [place], patie nts shoul d disco ntinu e bioti n 3 days befor e testi ng. Resul ts obtai ryan after recen t bioti n inges tion shoul d be inter prete d with cauti on. Not Available [address] , [place], [address], 01/09/2022 15:37:51 01/10/2001/09/2022 THYRO ID PANEL W/TSH performing lab see note [facility] R [address] [facility] [address] Not Available [address] , [place], [address], 01/09/2022 15:37:51 12/29/19 elect rocar diogr am No observ ation record ed. [address], [place], [address], 12/28/2021 10:08:38 05/29/19 elect rocar diogr am No observ ation record ed. [email or web address] [address], [place], [address], 05/29/2022 12:55:00 05/29/19 23 05/29/2022 elect rocar diogr am No observ ation record ed. [email or web address] Not Available 2022 12:56:00 Result Notes None recorded. Problems Name Problem SNOMED Code Status Onset Date Resolution Date Notes Provider Name and Address Organization Details Recorded Time Essential hypertension 24258665 Active 2021 Ester young, [place] - [facility] - [place] & [place] 2 10:21:35 Coronary atherosclerosi s 459480284 Active 2021 Ester Samara lynn null, [place] - [facility] [place] 2 10:21:35 Ventricular tachycardia 60217205 Active 2021 Ester Deanmilton lynn null, [place] [facility] [place] 2 10:21:35 Bilateral stenosis of carotid arteries 291296932 Active 2021 Ester Samara lynn null, [place] [facility] [place] 2 10:21:35 Hyperlipidemia 24234037 Active 2021 Ester Deanmilton lynn null, [place] [facility] [place] 2 10:21:35 Problem Notes None recorded. Procedures Surgical History Date Name Laterality Status Provider Name and Address Organization Details Recorded Time 022 Cardiac Catheterization completed Beverley Salinas [place] - [facility] [place] 09/26/2022 10:54:11 Colonoscopy completed Talya Blunt [place] - [place] [facility] [place] 05/29/2022 12:54:29 prostatectomy completed Ester Valentin [place] - [facility] [place] 12/28/2021 10:22:14 Imaging Results None recorded. Procedure Notes None recorded. Medical Equipment None Reported. Allergies Allergen ID Allergen Name Allergen Category Reaction Reaction Severity Criticality Documentation Date Start Date Code Code System Note Provider Name and Address Organization Details Recorded Time 08491 Product containin g penicilli n (product) medicatio n Not available Not available Not available 05/28/2022 80342 8001 SNOMED Ester Pascual leah null, [place] - [facility] [place] 3 19:00:46 Medications Name Sig Start Date [...] Available Vitals Date Recorded Body height Body mass index (BMI) Body weight Oxygen saturation Oxygen saturation in Arterial blood by Pulse oximetry Heart rate Systolic And Diastolic Provider Name and Address Organization Details Last Updated DateTime 3 175.26 cm 32.9 kg/m2 733675. 1 g 93 % 93 % 71 /min 130/62 mm[Hg] Talya SUNG - [facility] & [place] 3 12:53:19 Date Recorded Body height Body weight Oxygen saturation Oxygen saturation in Arterial blood by Pulse oximetry Heart rate Systolic And Diastolic Provider Name and Address Organization Details Last Updated DateTime 2 162.56 cm 76801.4 4 g 92 % 92 % 61 /min 122/82 mm[Hg] Ester lynn [place] - [facility] & [place] 2 10:19:12 Date Recorded Body height Body mass index (BMI) Body weight Oxygen saturation Oxygen saturation in Arterial blood by Pulse oximetry Heart rate Systolic And Diastolic Provider Name and Address Organization Details Last Updated DateTime 2 162.56 cm 36.3 kg/m2 46213.1 5 g 93 % 93 % 59 /min 108/60 mm[Hg] Ester lynn [facility] & [place] 15:44:18 Social History Question Answer Notes LastModified by Organizat ion Details LastModified Time Tobacco Smoking Status Former Smoker Talya young, [facility] & [place] 05/29/2022 12:54:17 What Is Your Level Of Caffeine Consumption? None [email or web address] Information not available 12/28/2021 Sex: Unknown Functional Status Question Answer Note LastModified by Organizat ion Details LastModified Time Do you use any illicit or recreational drugs? No [email or web address] Information not available 12/28/2021 What is your level of alcohol consumption? None [email or web address] Information not available 12/28/2021 Mental Status None recorded. Family History Relationship Description Onset Age of this Age Resolved Age Notes LastModified by Organization Details LastModified Time Father No current problems or disability [email or web address] Not available 0 12/28/2021 10:21:47 Mother No current problems or disability [email or web address] Not available 0 12/28/2021 10:21:47 Medical History Condition Response Coronary Artery Disease Y Hyperlipidemia Y Hypertension Y High Cholesterol Y Past Encounters Encounter ID Performer Location Encounter Start Date Encounter Closed Date Diagnosis/Indication Diagnosis SNOMED-CT Code Diagnosis ICD10 Code Diagnosis IMO Codes Diagnosis Note [id number] Liang Vidal MD [address] [place] [address] 12/28/2021 09:14:51 12/28/2021 09:48:17 Coronary atherosclerosis 311681180 I25.10 Essential hypertension 28894127 I10 Patient Education was printed, I have [...] than 70.-Encour aged regular exercise and activity.. .IRu APRN, am scribing for, and in the presence of, Liang Vidal MD...I, Liang Vidal M.D. performed the services as described in this documentat ion, as scribed by Ru Younger APRN in my presence, and it is both accurate and complete.. .This note was dictated using [employer] software. If something is unclear, or does not make sense, please do not hesitate to contact our office at [phone] for clarificat ion.. 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 [id number] RU YOUNGER NP, S [address] LLANES [address] [place] [address] 02/01/2022 13:14:50 02/01/2022 14:24:29 Coronary atherosclerosis 644077370 I25.10 Essential hypertension 72131098 I10 Hyperlipidemia 51089634 E78.5 Ventricula r tachycardia 72312660 I47.20 Bilateral stenosis of carotid arteries 733057637 I65.23 Long-term current use of amiodarone 9894799151 40172 Z79.899 Dyspnea on exertion 6084 5006 R06.09 Tobacco de pendence syndrome 51225187 F17.200 [id number] Liang Vidal MD [address] [place] [address] 05/29/2022 08:20:08 05/29/2022 09:16:37 Coronary atherosclerosis 235937419 I25.10 Essential hypertension 17666124 I10 Hyperlipidemia 19525952 E78.5 Ventricula r tachycardia 08897820 I47.20 Bilateral stenosis of carotid arteries 826681900 I65.23 Long-term current use of amiodarone 4449913372 31200 Z79.899 Dyspnea on exertion 6084 5006 R06.09 Tobacco de pendence syndrome 39393151 F17.200 Health Concerns Section Related Observation LastModified by Organization Detai ls LastModified Time None Recorded Concern Status LastModified by Organization Details LastModified Time None Recorded Advance Directives Directive None Recorded Payers Insurance Date Sequence Insurance Name Policy Number Policy Baron Covered Member ID Baron Member ID Guarantor Name 09/26/2022 1 [employer] (MEDICARE REPLACEMENT/A DVANTAGE - PPO) Celestino Lundy [id number] Celestino Lundy Notes Date Note Type Note Provider Name and Address Organization Details Recorded Time 12/28/2021 text/html Celestino is an 81-year-old male who is seen today in follow-up. [...] or cardiopulmonary complaints. RU YOUNGER NP, S [address] [place] [address],[address], [place], [address], [place] - [facility] 12/28/2021 13:10:44 02/01/2022 text/html Celestino is an 81-year-old male who is seen today in follow-up. [...] earlier this year. RU YOUNGER NP, S [address] [place] [address],[address], [place], [address], [facility] - [facility] & [place] 02/01/2022 16:05:31 05/29/2022 text/html Celestino is an 81-year-old male who is seen today in follow-up. [...] aspirin. The patient was told by his gold reclaimer that he can start Plavix again today. The patient has no cardiovascular or cardiopulmonary complaints. RU YOUNGER NP, S [address] [place] [address],[address], [place], [address], [facility] - [facility] & [place] 05/29/2022 15:53:27
--- OUTSIDE RECORDS SUMMARY | 2025-02-16 10:57 | XMS_ITS | Encounter Summary ---
Author Organization Healthcare Address [address] [place] [address] Care Team Providers Care Dormitory Maid Name Role Phone Ronny Belle MD Primary Care Provider [phone] Carrie James Unavailable [phone] Encounter Details Date Type Department Care Team (Late st Contact Info) Description 10/16/2024 Orders Only External Location [address] [place] [id number] Provider, External Social History Tobacco Use Types Packs/Day Years Used Date Smoking Tobacco: Former Cigarettes 3 67 1 795 - 2021 Smokeless Tobacco: Never Alcohol Use [...] first t herminio in the morning (EYE-RUBBER PRODUCTION MACHINE OPERATOR) to steady your nerves or [...] 07/13/2025 10:45 AM EDT Appointment [facility] Ultrasound [address] [place] [address] 07/13/2025 12:40 PM EDT Office Visit [facility] [address], [address] [place] [address] Carrie James PA [address] [place] [address] [...] documented as of this encounter Care Teams Dormitory Maid Relationship Specialty Start Date End Date Ronny Belle MD [address] [place] [address] PCP - General 07/01/24 Carrie James PA [address] [place] [address] Physician Automotive Service Writer Urology 11/11/24 documented as of this encounter
--- OUTSIDE RECORDS SUMMARY | 2025-02-16 10:57 | XMS_ITS | Encounter Summary ---
Author Organization Healthcare Address [address] [place] [address] Care Team Providers Care Mesh Cutter Name Role Phone Ronny Belle MD Primary Care Provider [phone] Carrie James Unavailable [phone] Encounter Details Date Type Department Care Team (Late st Contact Info) Description 05/20/2024 Orders Only External Location [address] [place] [address] Provider, External Social History Tobacco Use Types [...] Info) Description 07/13/2025 10:45 AM EDT Appointment [facility] Ultrasound [address] [place] [address] 07/13/2025 12:40 PM EDT Office Visit [facility] [address] [place] [address] Carrie James PA [address] [place] [address] documented as of this encounter Procedures Procedure [...] on filedocumented in this encounter Care Teams Mesh Cutter Relationship Specialty Start Date End Date Ronny Belle MD [facility] [place] [id number] PCP - General 07/01/24 Carrie James PA [address] [facility] [address] [place] [address] Physician Vending Machine Technician Urology 11/11/24 documented as of this encounter
--- OUTSIDE RECORDS SUMMARY | 2025-02-16 10:57 | XMS_ITS | Encounter Summary ---
Author Organization Healthcare Address [address] [place] [address] Care Team Providers Care Coil Winding Machines Set Up Mechanic Name Role Phone Ronny Belle MD Primary Care Provider [phone] Carrie James Unavailable [phone] Encounter Details Date Type Department Care Team (Late st Contact Info) Description 11/14/2024 Results Follow-Up [facility] Urology [address] [place] [address] Carrie James PA [address] [place] [address] Social History Tobacco Use Types [...] drink first t herminio in the morning (EYE-MANAGER OF INTERNATIONAL) to steady your nerves or to get [...] Description 07/13/2025 10:45 AM EDT Appointment [facility] Ul[facility]ound [address] [place] [address] 07/13/2025 12:40 PM EDT Office Visit [facility] [address] [place] [address] Carrie James PA [address] [place] [address] documented as of this encounter Visit Diagnoses Not on filedocumented in this encounter Additional Health Concerns Assessment Noted Time A fall risk assessment has been complete d for the patient 11/11/2024 10:02 AM EDT A Body Mass Index follow-up plan has been documented for the patient 11/21/2024 3:27 PM EDT documented as of this encounter Care Teams Coil Winding Machines Set Up Mechanic Relationship Specialty Start Date End Date Ronny Belle MD [address] [place] [address] PCP - General 07/01/24 Carrie James PA [address] [facility] [address] [place] [address] Physician Tripper Urology 11/11/24 documented as of this encounter
[2025-02-16 11:25] VITALS: BP 101/65; PULSE 65; O2SAT 95
== END 2025-02-16 23:59 | disposition home or self-care (01) ==
LOC: INF 10:37
PROVIDERS: PCP Family Medicine; Visit Provider Family Medicine
DX: D50.9 Iron deficiency anemia, unspecified (principal)
CPT/HCPCS: 96365; J1756

== ENCOUNTER 2025-02-23 09:32 | Outpatient (CLI) | payer MEDICARE, SELFPAY ==
[2025-02-23 10:00] VITALS: BP 121/65; PULSE 64; RESP 18; O2SAT 94
[2025-02-23] MEDS: IRON SUCROSE COMPLEX 200 MG in 0.9 % SODIUM CHLORIDE 100 ML 220 MG IV (10:34)
[2025-02-23 10:40] VITALS: BP 122/63; PULSE 61; RESP 18; O2SAT 94
== END 2025-02-23 23:59 | disposition home or self-care (01) ==
PROVIDERS: PCP Family Medicine; Visit Provider Family Medicine
DX: D50.9 Iron deficiency anemia, unspecified (principal)
CPT/HCPCS: 96365; J1756

== ENCOUNTER 2025-03-02 09:53 | Outpatient (CLI) | payer MEDICARE, SELFPAY ==
--- OUTSIDE RECORDS SUMMARY | 2025-01-06 07:30 | XMS_ITS | Encounter Summary ---
Author Organization [facility] Address [address] [place] [address] Care Team Providers Care Journalist Name Role Phone Ronny Belle MD Primary Care Provider Carrie James Unavailable [phone] Reason for Referral * Imaging (Routine) - Authorized Specialty Diagnoses / Procedures Referred By Contac t Referred To Contact Radiology Diagnoses Urinary retention Procedures US Renal Complete Carrie James PA [address] [address] Phone: tel: fax: Referral ID Status Reason Start Date Expiration Date V isits Requested Visits Authorized [id number] Authorized 01/06/2025 07/08/2026 1 1 Reason for Visit * Reason Comments Follow-up UTI UTI Encounter Details Date Type Department Care Team (Late st Contact Info) Description 01/06/2025 8:30 AM EDT Office Visit [place] [facility] [address] [place] [address] Carrie James PA [address] [address] Benign prostatic hyperplasia with incomplete bladder emptying (Primary Dx) Social History Tobacco Use Types Packs/Day Years Used Date Smoking Tobacco: Former Cigarettes 3 67 1 955 - 2021 Smokeless Tobacco: Never Tobacco Cessation:Counseling Given: Not Answered Alcohol Use Standard Drinks/Week Comments Never 0 (1 standard drink = 0.6 oz pur e alcohol) PHQ-2 Answer Date Recorded Patient Health Questionnaire-2 Score 0 01/06/2025 CAGE ASSESSMENT Answer Date Recorded Cage unable [...] drink first t herminio in the morning (EYE-RESEARCH AND DEVELOPMENT SCIENTIST) to steady your nerves or to get [...] Sign Reading Time Taken Comments Blood Pressure 101/62 01/06/2025 8:53 AM EDT Pulse 87 01/06/2025 8:53 AM EDT Temperature - - Respiratory Rate 14 01/06/2025 8:53 AM EDT Oxygen Saturation 94% 01/06/2025 8:53 AM EDT Inhaled Oxygen Concentration - - Weight 97.2 kg (214 lb 4.6 oz) 01/06/2025 8:53 A M EDT Height 175.3 cm (5' 9 ) 01/06/2025 8:53 AM EDT Body Mass Index 31.64 01/06/2025 8:53 AM EDT documented in this encounter Functional Status * Over the past 2 weeks, how often have you been bothered by any of the following problems? Question Answer Date of Assessment Author Little interest or pleasure in doing things Not at all 01/06/2025 8:59 AM EDT Carol Briceno LPN Feeling down, depressed, or hopeless Not at all 01/06/2025 8:59 AM EDT Carol Briceno LPN Patient Health Questionnaire-2 Score 0 01/06/2025 8:59 AM EDT Carol Briceno LPN * How difficult have these problems made it for you to do your work, take care of things at home, or get along with other people? Answer Date of Assessment Author Not difficult at all 01/06/2025 8:59 AM EDT Carol Garcia LPN documented as of this encounter Miscellaneous Notes * Progress Notes - Carrie James PA - 01/06/2025 8:30 AM EDT Subjective Patient ID: Celestino Lundy is a 84 y.o. male. HPI 84yoM with history of BPH and gross hematuria who underwent TURP with Dr Harman 08/22/24. Patient developed urinary retention after removing catheter at home as instructed on 08/25/24. Catheter was reinserted in the clinic 08/26/24. He then had a successful voiding trial 09/02/24 - Patient was last seen 11/11/24 at which time he reported recent hospitalization at [facility]SH with malaise, weakness and UTI. He has completed course of oral abx and was concerned he may still have infection. Culture grew low colony count enterococcus for which he was treated. -Patient follows up today, reports another hospitalization but unsure of details or specific diagnosis. I do not have any outside records at the time of this encounter. He has not had any flank pain or fevers, reports urine to be clear. He has good flow and generally feels empty. UA today is bland. PVR is acceptable, 165ml. ( Prev >600). Objective Physical Exam Vitals reviewed. Pulmonary: Effort: Pulmonary effort is normal. Neurological: Mental Status: He is alert and oriented to person, place, and time. Mental status is at baseline. Psychiatric: Mood and Affect: Mood normal. Behavior: Behavior normal. Celestino was seen today for follow-up and uti. Diagnoses and all orders for this visit: Benign prostatic hyperplasia with incomplete bladder emptying (Primary) Comments: s/p TURP . benign pathology - no infection today and PVR is significantly improved. Symptoms stable. Other orders - POCT URINALYSIS DIPSTICK - POC US Bladder Volume - US Renal Complete; Future -requested discharge summary and any imaging from recent hospital admit. -recommend continuing med mgmt for BPH at this time. - will reassess in 6m with MIRTA. documented in this encounter Plan of Treatment Upcoming Encounters Date Type Department Care Team (Late st Contact Info) Description 07/13/2025 10:45 AM EDT Appointment [facility] Ultrasound [address] [place] [address] 07/13/2025 12:40 PM EDT Office Visit [facility] [address] [place] [address] Carrie James PA [address] [place] [address] Scheduled Orders Name Type Priority Associated Diagnoses Orde r Schedule US Renal Complete Imaging Routine Expecte d: 07/06/2025 (Approximate), Expires: 07/10/2026 documented as of this encounter Procedures Procedure Name Priority Date/Time Associated Diagnosis Comments POCT URINALYSIS DIPSTICK Routine 01/06/2025 8:52 AM EDT POC US BLADDER SCAN FOR VOLUME Routine 01/06/2025 documented in this encounter Results * (ABNORMAL) POCT URINALYSIS DIPSTICK (01/06/2025 8:52 AM EDT) POCT Urine Color Yellow 01/06/2025 8:53 AM EDT [facility] POCT Urine Clarity Clear 01/06/2025 8:53 AM EDT [facility] POCT Urine Glucose Negative Negative mg/dL 01/06/2025 8:53 AM EDT [facility] POCT Urine Bilirubin Negative Negative mg/dL 01/06/2025 8:53 AM EDT [facility] POCT Urine Ketones Negative Negative mg/dL 01/06/2025 8:53 AM EDT [facility] POCT Urine Specific [place] 1.010 1.005 - 1.030 01/06/2025 8:53 AM EDT [facility] POCT Urine Blood Negative Negative 01/06/2025 8:53 AM EDT [facility] POCT pH, Urine 5.5 5.0 - 8.0 01/06/2025 8:53 AM EDT [facility] POCT Protein, Urine Negative Negative mg/dL 01/06/2025 8:53 AM EDT [facility] POCT Urobilinogen, Urine 0.2 0.2, 1.0 EU/dL 01/06/2025 8:53 AM EDT [facility] POCT Nitrite, Urine Negative Negative 01/06/2025 8:53 AM EDT [facility] POCT Urine Leukocyte Esterase Trace(A) Negative 01/06/2025 8:53 AM EDT [facility] Urine 01/06/2025 8:52 AM EDT 01/06/2025 8:53 AM EDT Carrie ALVAREZ LAB POINT OF CARE T EST DOCKED DEVICE UNSOLICITED RESULTS Final Result Performing Organization Address City/State/[facility] Co de Phone Number [facility] [address], [place] * POC US Bladder Volume (01/06/2025) Urine, Volume 165 mL IMAGING Anatomical Region Laterality Modality Other Urine 01/06/2025 Carrie ALVAREZ IMG POINT OF CARE ULTRASOUN D Final Result documented in this encounter Visit Diagnoses Diagnosis Benign prostatic hyperplasia with incomplete bladder emptying- Primary documented in this encounter Additional Health Concerns Assessment Noted Time A fall risk assessment has been complete d for the patient 01/06/2025 9:00 AM EDT A Body Mass Index follow-up plan has been documented for the patient 01/06/2025 9:31 AM EDT documented as of this encounter Care Teams Journalist Relationship Specialty Start Date End Date Ronny Belle MD [address] [place] [address] PCP - General 07/01/24 Carrie James PA [id number] [place] [phone] Physician Product Ambassador Urology 11/11/24 documented as of this encounter
--- OUTSIDE RECORDS SUMMARY | 2025-03-02 09:58 | XMS_ITS | Encounter Summary ---
Author Organization [facility] Address [address] [place] [address] Care Team Providers Care Overhauler Name Role Phone Ronny Belle MD Primary Care Provider [phone] Carrie James Unavailable Encounter Details Date Type Department Care Team (Latest Contact Info) Description 01/06/2025 Travel Social History Tobacco Use Types Packs/Day Years Used Date Smoking Tobacco: Former Cigarettes 3 67 6 694 - 2021 Smokeless Tobacco: Never Alcohol Use [...] drink first t herminio in the morning (EYE-BIOLOGICAL TECHNICAL OFFICER) to steady your nerves or to [...] Info) Description 07/13/2025 10:45 AM EDT Appointment [facility] Ultrasound [address] [place] [address] 07/13/2025 12:40 PM EDT Office Visit [facility] [address] [place] [address] Carrie James PA [address] [place] [address] documented as of this encounter Visit Diagnoses Not on filedocumented in this encounter Additional Health Concerns Assessment Noted Time A fall risk assessment has been complete d for the patient 01/06/2025 9:00 AM EDT A Body Mass Index follow-up plan has been documented for the patient 01/06/2025 9:31 AM EDT documented as of this encounter Care Teams Overhauler Relationship Specialty Start Date End Date Ronny Belle MD [facility] [place] [address] PCP - General 07/01/24 Carrie James PA [address] [place] [address] Physician Test Grader Urology 11/11/24 documented as of this encounter
--- OUTSIDE RECORDS SUMMARY | 2025-03-02 09:58 | XMS_ITS | Encounter Summary ---
Author Organization Healthcare Address [address] [place] [address] Care Team Providers Care Games Dealer Name Role Phone Rnony Belle MD Primary Care Provider [phone] Carrie James Unavailable [phone] Encounter Details Date Type Department Care Team (Late st Contact Info) Description 10/16/2024 Orders Only External Location [address] [place] [address] Provider, External Social History Tobacco Use Types Packs/Day Years Used Date Smoking Tobacco: Former Cigarettes 3 67 1 325 - 2021 Smokeless Tobacco: Never Alcohol Use [...] drink first t herminio in the morning (EYE-CONCRETE PILE DRIVER OPERATOR) to steady your nerves or to [...] Info) Description 07/13/2025 10:45 AM EDT Appointment [facility] Ultrasound [address] [place] [address] 07/13/2025 12:40 PM EDT Office Visit [facility] [address], [address] [place] [address] Carrie James PA [address] [place] [address] documented as of this encounter [...] documented as of this encounter Care Teams Games Dealer Relationship Specialty Start Date End Date Ronny Belle MD [address] [place] [address] PCP - General 07/01/24 Carrie James PA [address] [place] [address] Physician It Generalist Urology 11/11/24 documented as of this encounter
--- OUTSIDE RECORDS SUMMARY | 2025-03-02 09:58 | XMS_ITS | Encounter Summary ---
Author Organization Healthcare Address [address] [place] [address] Care Team Providers Care Size Cutter Name Role Phone Ronny Belle MD Primary Care Provider [phone] Carrie James Unavailable [phone] Encounter Details Date Type Department Care Team (Late st Contact Info) Description 08/19/2024 Orders Only External Location [address] [place] [id number] Provider, External Social History Tobacco Use Types [...] drink first t herminio in the morning (EYE-SEPARATIONS SCIENTIST) to steady your nerves or to [...] EDT Appointment [facility] Ultrasound [address], [address] [place] [address] 07/13/2025 12:40 PM EDT Office Visit [facility] [address], [address] [place] [address] Carrie James PA [address] [place] [address] documented as of this encounter [...] documented as of this encounter Care Teams Size Cutter Relationship Specialty Start Date End Date Ronny Belle MD [address] [place] [address] PCP - General 07/01/24 Carrie James PA [address] [facility] [address] [place] [address] Physician Biosecurity Officer Urology 11/11/24 documented as of this encounter
--- OUTSIDE RECORDS SUMMARY | 2025-03-02 09:58 | XMS_ITS | Encounter Summary ---
Author Organization Healthcare Address [address] [place] [address] Care Team Providers Care Shower Maid Name Role Phone Ronny Belle MD Primary Care Provider [phone] Carrie James Unavailable [phone] Encounter Details Date Type Department Care Team (Late st Contact Info) Description 05/20/2024 Orders Only External Location [address] [place] [address] Provider, External Social History Tobacco Use Types [...] 07/13/2025 10:45 AM EDT Appointment [facility] Ultrasound [address], [address] [place] [address] 07/13/2025 12:40 PM EDT Office Visit [facility] [address], [address] [place] [address] Carrie James PA [address] [place] [address] documented as of this encounter Procedures Procedure [...] on filedocumented in this encounter Care Teams Shower Maid Relationship Specialty Start Date End Date Ronny Belle MD [facility] [place] [address] PCP - General 07/01/24 Carrie James PA [address] [facility] [address] [place] [address] Physician Journeyman Wireman Urology 11/11/24 documented as of this encounter
--- OUTSIDE RECORDS SUMMARY | 2025-03-02 09:58 | XMS_ITS | Encounter Summary ---
Author Organization Healthcare Address [address] [place] [address] Care Team Providers Care Outbound Sales Professional Name Role Phone Ronny Belle MD Primary Care Provider [phone] Carrie James Unavailable [phone] Encounter Details Date Type Department Care Team (Late st Contact Info) Description 10/16/2024 Orders Only External Location [address] [place] [phone] Provider, External Social History Tobacco Use Types Packs/Day Years Used Date Smoking Tobacco: Former Cigarettes 3 67 1 755 - 2021 Smokeless Tobacco: Never Alcohol Use [...] first t herminio in the morning (EYE-HEARING IMPAIRED TEACHER) to steady your nerves or to [...] Info) Description 07/13/2025 10:45 AM EDT Appointment [facility] Ultrasound [address], [address] [place] [address] 07/13/2025 12:40 PM EDT Office Visit [facility] [address], [address] [place] [address] Carrie James PA [address] [place] [address] documented as of this encounter [...] as of this encounter Care Teams Outbound Sales Professional Relationship Specialty Start Date End Date Ronny Belle MD [address] [place] [address] PCP - General 07/01/24 Carrie James PA [address] [place] [address] Physician Enterprise Application Developer Urology 11/11/24 documented as of this encounter
--- OUTSIDE RECORDS SUMMARY | 2025-03-02 09:58 | XMS_ITS | Clinical Summary ---
Author Organization [facility] Address [address] [place] [address] Care Team Providers Care Recreational Therapy Technician Name Role Phone Ronny Belle MD Primary Care Provider [phone] Carrie James Unavailable [phone] Allergies Active Allergy Reactions Criticality Noted Date [...] Description 01/06/2025 8:30 AM EDT Office Visit [facility] Urology [address], [address] [place] [address] Carrie James PA Benign prostatic hyperplasia with incomplete bladder emptying (Primary Dx) 01/06/2025 Telephone [facility] Urology [address], [address] [place] [address] Carrie James PA Records/Image Request 01/06/2025 Travel 12/08/2024 Orders Only External Location [address] [place] [address] Provider, External 12/05/2024 Telephone [facility] Urology [address], [address] [place] [address] Carrie James PA Confirmed Chanegs from Last [...] drink first t herminio in the morning (EYE-PRIVACY ANALYST) to steady your nerves or to [...] Info) Description 07/13/2025 10:45 AM EDT Appointment [facility] Ultrasound [address], [address] [place] [address] 07/13/2025 12:40 PM EDT [facility] [address], [address] [place] [address] Carrie James, PA [address] [place] [address] Health Maintenance Due Date Last Done Comments [facility]-Medicare Annual Wellness (AWV) 1940 [facility]-/Child/Adol SDOH Screenings 1940 [facility]- SDOH Screenings 1958 [facility]-Adult SDOH Screenings 1958 [facility]-DTaP,Tdap,and Td Vaccines (1 - Tdap) 10/29/1959 [facility]-Pneumococcal Vaccine: 50+ Years (1 of 1 - PCV) 1990 [facility]-Zoster Vaccines (1 of 2) 1990 [facility]-RSV Vaccine: 60+ Years or (1 - 1-dose 75+ series) 10/29/2015 [id number] Vaccine (2024- season) 2024 01/25/2022, 02/09/2021, 07/01/2020, [...] Urine Color Yellow 01/06/2025 8:53 AM EDT [facility] UROLOGY POCT Urine Clarity Clear 01/06/2025 8:53 AM EDT [facility] UROLOGY POCT Urine Glucose Negative Negative mg/dL 01/06/2025 8:53 AM EDT [facility] UROLOGY POCT Urine Bilirubin Negative Negative mg/dL 01/06/2025 8:53 AM EDT [facility] UROLOGY POCT Urine Ketones Negative Negative mg/dL 01/06/2025 8:53 AM EDT [facility] UROLOGY POCT Urine Specific Gary 1.010 1.005 - 1.030 01/06/2025 8:53 AM EDT [facility] UROLOGY POCT Urine Blood Negative Negative 01/06/2025 8:53 AM EDT [facility] UROLOGY POCT pH, Urine 5.5 5.0 - 8.0 01/06/2025 8:53 AM EDT [facility] UROLOGY POCT Protein, Urine Negative Negative mg/dL 01/06/2025 8:53 AM EDT [facility] UROLOGY POCT Urobilinogen, Urine 0.2 0.2, 1.0 EU/dL 01/06/2025 8:53 AM EDT [facility] UROLOGY POCT Nitrite, Urine Negative Negative 01/06/2025 8:53 AM EDT [facility] UROLOGY POCT Urine Leukocyte Esterase Trace(A) Negative 01/06/2025 8:53 AM EDT [facility] UROLOGY Urine 01/06/2025 8:52 AM EDT 01/06/2025 8:53 AM EDT Carrie ALVAREZ LAB POINT OF CARE T EST DOCKED DEVICE UNSOLICITED RESULTS Final Result Performing Organization Address City/State[facility] Co de Phone Number [facility] UROLOGY [address], [place] * POC US Bladder Volume (01/06/2025) [...] Last [address] [place] [id number] [employer] MEDICARE Advance Directives * Full Code (Latest Code Status on File) Date Activated Date Inactivated Comments 08/22/2024 4:19 PM 08/23/2024 6:07 PM Question Answer Comments I have reviewed the capacity from the link above and, if needed, have updated to appropriate status: Yes Care Teams Recreational Therapy Technician Relationship Specialty Start Date End Date Ronny Belle MD [facility] [place] [address] PCP - General 07/01/24 Carrie James PA [address] [facility] [address] [place] [phone] Physician Tailoring Teacher Urology 11/11/24
--- OUTSIDE RECORDS SUMMARY | 2025-03-02 09:58 | XMS_ITS | Clinical Summary ---
Author Organization [facility] [place] [address] Care Team Providers Care Retail Customer Service Specialist Name Role Phone Unavailable Primary Care [...]
--- OUTSIDE RECORDS SUMMARY | 2025-03-02 09:58 | XMS_ITS | Encounter Summary ---
Author Organization Healthcare Address [address] [place] [address] Care Team Providers Care Decorating Machine Tender Name Role Phone Ronny Belle MD Primary Care Provider [phone] Carrie James Unavailable [phone] Reason for Visit * Reason Onset Date Comments Records/Image Request 01/06/2025 Encounter Details Date Type Department Care Team (Late st Contact Info) Description 01/06/2025 Telephone [facility] [address] [place] [address] Carrie James PA [address] [place] [address] Records/Image Request Social History Tobacco Use Types Packs/Day Years Used Date Smoking Tobacco: Former Cigarettes 3 67 1 628 - 2022 Smokeless Tobacco: Never Alcohol Use [...] drink first t herminio in the morning (EYE-DAY CARE TEACHER) to steady your nerves or to [...] [facility] this encounter Plan of Treatment Upcoming Encounters Date Type Department Care Team (Late st Contact Info) Description 07/13/2025 10:45 AM EDT Appointment [facility] Ultrasound [address], [address] [place] [address] 07/13/2025 12:40 PM EDT Office Visit [facility] [address], [address] [place] [address] Carrie James PA [address] [place] [address] documented as of this encounter Visit Diagnoses Not on filedocumented in this encounter Additional Health Concerns Assessment Noted Time A fall risk assessment has been complete d for the patient 01/06/2025 9:00 AM EDT A Body Mass Index follow-up plan has been documented for the patient 01/06/2025 9:31 AM EDT documented as of this encounter Care Teams Decorating Machine Tender Relationship Specialty Start Date End Date Ronny Belle MD [address] [place] [address] PCP - General 07/01/24 Carrie James PA [address] [facility] [place] [address] Physician Injection Molding Operator Urology 11/11/24 documented as of this encounter
--- OUTSIDE RECORDS SUMMARY | 2025-03-02 09:58 | XMS_ITS | Encounter Summary ---
Author Organization Healthcare Address [address] [place] [address] Care Team Providers Care Medical Assistant Instructor Name Role Phone Ronny Belle MD Primary Care Provider [phone] Carrie James Unavailable [phone] Encounter Details Date Type Department Care Team (Late st Contact Info) Description 12/08/2024 Orders Only External Location [address] [place] [phone] Provider, External Social History Tobacco Use Types [...] drink first t herminio in the morning (EYE-BRAKE PRESS OPERATOR) to steady your nerves or to [...] 07/13/2025 10:45 AM EDT Appointment [facility] Ultrasound [address], [address] [place] [address] 07/13/2025 12:40 PM EDT Office Visit [place] [facility] [address], [address] [place] [address] Carrie James PA [address] [place] [address] documented as of this encounter [...] documented as of this encounter Care Teams Medical Assistant Instructor Relationship Specialty Start Date End Date Ronny Belle MD [address] [place] [address] PCP - General 07/01/24 Carrie James PA [address] [place] [address] Physician Spectrographer Urology 11/11/24 documented as of this encounter
--- OUTSIDE RECORDS SUMMARY | 2025-03-02 09:58 | XMS_ITS | Encounter Summary ---
Author Organization Healthcare Address [address] [place] [address] Care Team Providers Care Accessories Repairer Name Role Phone Ronny Belle MD Primary Care Provider [phone] Carrie James Unavailable [phone] Encounter Details Date Type Department Care Team (Late st Contact Info) Description 10/13/2024 Orders Only External Location [address] [place] [phone] Provider, External Social History Tobacco Use Types [...] drink first t herminio in the morning (EYE-PROJECT SCIENTIST) to steady your nerves or to [...] Description 07/13/2025 10:45 AM EDT Appointment [facility] Ultrasound [address], [address] [place] [address] 07/13/2025 12:40 PM EDT [facility] [address], [address] [place] [address] Carrie James PA [address] [place] [address] documented as of this encounter [...] documented as of this encounter Care Teams Accessories Repairer Relationship Specialty Start Date End Date Ronny Belle MD [address] [place] [address] PCP - General 07/01/24 Carrie James PA [address] [place] [address] Physician Welding Machine Operator Gas Urology 11/11/24 documented as of this encounter
--- OUTSIDE RECORDS SUMMARY | 2025-03-02 09:58 | XMS_ITS | Encounter Summary ---
Author Organization Healthcare Address [address] [place] [address] Care Team Providers Care Tread Builder Name Role Phone Ronny Belle MD Primary Care Provider [phone] Carrie James Unavailable [phone] Encounter Details Date Type Department Care Team (Late st Contact Info) Description 05/20/2024 Orders Only External Location [address] [place] [address] Provider, External Social History Tobacco Use Types [...] Description 07/13/2025 10:45 AM EDT Appointment [facility] Ultrasound [address], [address] [place] [address] 07/13/2025 12:40 PM EDT Office Visit [facility] [address], [address] [place] [address] Carrie James PA [address] [place] [address] documented as of this encounter Procedures Procedure [...] on filedocumented in this encounter Care Teams Tread Builder Relationship Specialty Start Date End Date Ronny Belle MD [facility] [place] [address] PCP - General 07/01/24 Carrie James PA [address] [facility] [address] [place] [address] Physician Plant Protection Officer Urology 11/11/24 documented as of this encounter
--- OUTSIDE RECORDS SUMMARY | 2025-03-02 09:58 | XMS_ITS | Clinical Summary ---
Author Organization [facility] Address [address] [place] [address], [address] [place] [address] Care Team Providers Care Perlite Grinder Name Role Phone Ronny Belle MD Primary Care Provider [phone] Allergies Active Allergy Reactions Criticality Noted Date [...] complete this topic Insurance MEDICARE Care Teams Perlite Grinder Relationship Specialty Start Date End Date Ronny Belle MD [address] [place] [address] PCP - General Family Medicine 04/27/22
--- OUTSIDE RECORDS SUMMARY | 2025-03-02 09:58 | XMS_ITS | Encounter Summary ---
Author Organization Healthcare Address [address] [place] [address] Care Team Providers Care In Store Marketing Associate Name Role Phone Ronny Belle MD Primary Care Provider [phone] Carrie James Unavailable [phone] Encounter Details Date Type Department Care Team (Late st Contact Info) Description 06/09/2024 Orders Only External Location [address] [place] [address] Provider, External Social History Tobacco Use Types [...] Info) Description 07/13/2025 10:45 AM EDT Appointment [facility] Ultrasound [address] [place] [address] 07/13/2025 12:40 PM EDT Office Visit [place] [facility] [address], [address] [place] [address] Carrie James PA [address] [place] [address] documented as of this encounter Procedures Procedure [...] on filedocumented in this encounter Care Teams In Store Marketing Associate Relationship Specialty Start Date End Date Ronny Belle MD [facility] [place] [address] PCP - General 07/01/24 Carrie James PA [address] [facility] [address] [place] [address] Physician Solar Project Coordination Specialist Urology 11/11/24 documented as of this encounter
--- OUTSIDE RECORDS SUMMARY | 2025-03-02 09:58 | XMS_ITS | Data Portability ---
Author Organization [facility] Address [address] [place] [address] Assessment Encounter Date Assessment Date Assessment LastModified by Organization Details LastModified Time 05/07/2017 05/07/2017 Nicotine Dependence ,smoking cessation discussed at length Patient has smoked since age 15 BPH Rx Leslye Discontinue Finasteride due to on going nocturia [email or web address] Not available 05/07/2017 17:37:51 04/18/2021 04/18/2021 F/U as needed [place] [id number] Not available 04/18/2021 15:56:26 Plan of Treatment Reminders Order Date Submit Date Provider Last Modified By Organization Details Last Modified Time Details Appointments None recorde d. Lab rapid SARS CoV + SARS CoV 2 Ag, QL IA, respira tory specime n 2021 022 [email or web address] [facility], [address] [place], [address], 2 15:56:27 PSA, serum or plasma 2017 018 ZAK [facility], [address], Mario Alberto F, [place], [address], 8 08:42:46 PSA, serum or plasma 2016 017 sneus [facility], [address], Mario [address] F, [place], [address], 7 12:58:35 lipid panel, serum 2016 017 sneus [facility], [address], Mario [address], [place], [address], 7 12:58:35 CMP, serum or plasma 2016 017 sneus [facility], [address], Mario Alberto F, [place], [address], 7 12:58:35 Referral None recorde d. Procedures None recorde d. Surgeries None recorde d. Imaging None recorde d. Medication Orders Lotrel 10 mg-20 mg capsule [address], [address], 8 20:31:03 Lipitor 20 mg tablet [address], [address], 8 20:31:03 Zetia 10 mg tablet [address], [address], 8 20:31:03 Leslye 0.5 mg-0.4 mg capsule , extende d release [address], [address], 8 20:31:03 finaste ride 5 mg tablet [address], [address], 8 17:04:32 Lotrel 10 mg-20 mg capsule [address], [address], 7 12:58:35 Zetia 10 mg tablet [email or web address], [address], 7 12:58:35 Lipitor 20 mg tablet [email or web address], [address], 7 12:58:35 Lincoci n 300 mg/mL injecti on solutio n 2015 [address], [address], 7 17:45:41 dexamet hasone sodium phospha te 10 mg/mL injecti on solutio n 2015 [address], [address], 7 17:45:48 Patient TargetsNo targets recorded. Patient Instructions Encounter Date Encounter Id Patient Instructions Last Modified By Organization Details Last Modified Time 01/27/2016 [id number] keep well hydrated, cool mist humidifer, no smoking [email or web address] Not available 01/27/2016 13:54:18 05/07/2017 [id number] Quitting Tobacco : Care Instructions [email or web address] Not available 05/07/2017 20:31:03 smoking cessatio n counseling, greater than 3 minutes up to 10 minutes* [email or web address] Not available 05/14/2017 08:25:34 high blood pressure: [...] LATIO N INDIC ATED. Not Available [facility] ([facility]) [address] [place], [address], 05/04/2016 08:45:29 05/04/19 17 05/04/2016 CMP, serum or plasm a BUN 13 mg/dL 8-27 Not Available [facility] ([facility]) [address] [place], [address], 05/04/2016 08:45:29 05/04/19 17 05/04/2016 CMP, serum or plasm a creatinine, serum 1.12 mg/dL 0.76-1 .27 Not Available [facility] ([facility]) [address] [facility], [place], [address], 05/04/2016 08:45:29 05/04/19 17 05/04/2016 CMP, serum or plasm a eGFR if nonafricn AM 64 mL/mi n/1.7 3 >59 Not Available [facility] ([facility]) [address] [facility], [place], [address], 05/04/2016 08:45:29 05/04/19 17 05/04/2016 CMP, serum or plasm a eGFR if africn AM 74 mL/mi n/1.7 3 >59 Not Available [facility] ([facility]) [address] [place], [address], 05/04/2016 08:45:29 05/04/19 17 05/04/2016 CMP, serum or plasm a BUN/creatini ne ratio 12 10-22 Not Available [facility] ([facility]) [address] [place], [address], 05/04/2016 08:45:29 05/04/19 17 05/04/2016 CMP, serum or plasm a sodium, serum 142 mmol/ L 134-14 4 Not Available [facility] ([facility]) [address] [place], [address], 05/04/2016 08:45:29 05/04/19 17 05/04/2016 CMP, serum or plasm a potassium, serum 4.7 mmol/ L 3.5-5. 2 Not Available [facility] ([facility]) [address] [place], [address], 05/04/2016 08:45:29 05/04/1905/04/2016 CMP, serum or plasm a chloride, serum 100 mmol/ L 96-106 Not Available [facility] ([facility]) [address] [place] [address], [address], 05/04/2016 08:45:29 05/04/19 17 05/04/2016 CMP, serum or plasm a carbon dioxide, total 22 mmol/ L 18-29 Not Available [facility] ([facility]) [address] [place] [address], [address], 05/04/2016 08:45:29 05/04/19 17 05/04/2016 CMP, serum or plasm a calcium, serum 9.2 mg/dL 8.6-10 .2 Not Available [facility] ([facility]) [address] [place], [address], 05/04/2016 08:45:29 05/04/1905/04/2016 CMP, serum or plasm a protein, total, serum 6.8 g/dL 6.0-8. 5 Not Available [facility] ([facility]) [address] [place] [address], [address], 05/04/2016 08:45:29 05/04/1905/04/2016 CMP, serum or plasm a albumin, serum 4.4 g/dL 3.5-4. 8 Not Available [facility] ([facility]) [address] [facility] [place], [address], 05/04/2016 08:45:29 05/04/19 17 05/04/2016 CMP, serum or plasm a globulin, total 2.4 g/dL 1.5-4. 5 Not Available [facility] ([facility]) [address] [facility] [place], [address], 05/04/2016 08:45:29 05/04/19 17 05/04/2016 CMP, serum or plasm a A/G ratio 1.8 1.1-2. 5 Not Available [facility] ([facility]) [address] [facility] [place], [address], 05/04/2016 08:45:29 05/04/19 17 05/04/2016 CMP, serum or plasm a bilirubin, total 0.4 mg/dL 0.0-1. 2 Not Available [facility] ([facility]) [address] [place], [address], 05/04/2016 08:45:29 05/04/1905/04/2016 CMP, serum or plasm a alkaline phosphatase, S 84 IU/L 39-117 Not Available [facility] ([facility]) [address] [place], [address], 05/04/2016 08:45:29 05/04/19 17 05/04/2016 CMP, serum or plasm a AST (SGOT) 19 IU/L 0-40 Not Available [facility] ([facility]) [address] [place], [address], 05/04/2016 08:45:29 05/04/1905/04/2016 CMP, serum or plasm a ALT (SGPT) 15 IU/L 0-44 Not Available [facility] ([facility]) [address] [facility] [place], [address], 05/04/2016 08:45:29 05/04/1905/04/2016 lipid panel , serum cholesterol, total 143 mg/dL 100-19 9 Not Available [facility] ([facility]) [address] [place], [address], 05/04/2016 08:45:30 05/04/19 17 05/04/2016 lipid panel , serum triglyceride s 161 mg/dL 0-149 above high normal Not Available [facility] ([facility]) [address] [place], [address], 05/04/2016 08:45:30 05/04/19 17 05/04/2016 lipid panel , serum HDL cholesterol 48 mg/dL >39 Not Available [facility]) [address] [place], [address], 05/04/2016 08:45:30 05/04/19 17 05/04/2016 lipid panel , serum VLDL cholesterol nakia 32 mg/dL 5-40 Not Available [facility] ([facility]) [address] [place], [address], 05/04/2016 08:45:30 05/04/1905/04/2016 lipid panel , serum LDL cholesterol calc 63 mg/dL 0-99 Not Available [facility] ([facility]) [address] [place], [address], 05/04/2016 08:45:30 05/04/1905/04/2016 lipid panel , serum comment: FAMILY COURT REGISTRAR Not Available [facility] ([facility]) [address] [place], [address], 05/04/2016 08:45:30 05/04/1905/04/2016 PSA, serum or plasm [...] OR KITS CANNO T BE USED INTER [facility] . RESUL TS CANNO T BE INTER PRETE D ABSOL [place] EVIDE NCE OF THE PRESE NCE OR ABSEN CE OF [facility] SE. Not Available [facility] ([facility]) [address] [facility], [place], [address], 05/04/2016 08:45:31 05/04/19 17 05/04/2016 parminder e note please note COMMEN T THE DATE AND/O R TIME OF COLLE CTION WAS NOT INDIC ATED ON THE REQUI SITIO N REQUI RED BY STATE AND [place] LAW. THE DATE OF RECEI PT OF THE SPECI MEN WAS USED THE COLLE CTION DATE IF NOT SUPPL IED. Not Available [facility] ([facility]) [address] [facility], [place], [address], 05/04/2016 08:45:31 05/07/19 18 05/08/2017 PSA, serum [...] or kits canno t be used [facility] . Resul ts canno t be inter prete d as absol [place] evide nce of the prese nce or absen ce of [facility] dise se. Not Available [facility] ([facility]) [address], [place], [address], 05/08/2017 08:42:46 04/18/1904/18/2021 rapid SARS CoV + SARS CoV 2 Ag, QL IA, respi rator y speci men SARS CoV antigen Negati ve Not Available [facility] [address] [place], [address], 04/18/2021 13:07:32 Result Notes None recorded. Problems Name Problem SNOMED Code Status Onset Date Resolution Date Notes Provider Name and Address Organization Details Recorded Time Hyperlipidemia 19521795 Active 2015 Crystal Bibi [place], [place] - [facility] 6 12:56:25 Essential hypertension 69644869 Active 2015 Crystal Bibi [place], [place] - [facility] 6 12:56:31 Benign prostatic hyperplasia 850358225 Active 2015 Crystal Bibi [place], [place] - [facility] 6 12:56:57 Slowing of urinary stream 17541763 Active 2015 Crystal Bibi [place], [place] - [facility] 6 12:57:10 Nicotine dependence 60438263 Active 2017 Rosa Deleon in [place], [place] - [facility] 8 16:53:50 Problem Notes Documentation Provider Name and Address Organization Details Recorded Time Hospital Consult Note : [facility] Cardiology Consultation REPORT #: [id number] REPORT STATUS: Signed DATE: 07/06/21 TIME: 1533 PATIENT: MANOJ ONTIVEROS UNIT #: [id number] ROOM/BED: 319-A AGE: 80 SEX: M ATTEND: Maria G KAM,Bryce Deluna ADM AUTHOR: Ru Dietrich APRN * [...] hyperplasia. The patient presented today to the [facility] Emergency Department after a one day [...] no calf tenderness, no clubbing, no cyanosis Neuro/SALES REPRESENTATIVE CASH REGISTERS: alert, oriented X 3, normal speech Skin: [...] % (Auto) (35 - 75 %) 65 [place] % (Auto) (0 - 15 %) 9 [...] transcribed note. Plan discussed with: patient at 8492 at 5397 RPT #: [id number] END OF REPORT CC'ed Logic: Attending Provider: MARIA G GRAY Referring Provider: PHYSICIAN NO Consulting Provider: SHLAINI Hewitt Admitting Provider: MARIA G Espinal, ANESTHESIOLOGY FELLOW [address], [place], [address], [place] - [facility] 07/11/2021 13:39:19 Procedures Surgical [...] Name and Address Organization Details Recorded Time 97155 Product containin g penicilli n (product) medicatio n Not available Not available Not available 01/14/20162008 90091 8001 SNOMED Not Available [facility] [...] nued on: 03/24/20 11 11:10AM; User: [email or web address];Eloisa tanjaMonie Completi on: 11/19/19 09;Indic ation: Smoking Cessatio n - (30504 12) Not Available Not Available Not Available dutasteri de 0.5 mg-tamsul osin ER 0.4 mg capsule ext.relea se 24hr mphas TAKE 1 CAPSULE BY MOUTH EVERY DAY active Not Available Not Available No t Available Vitals Date Recorded Body temperature Heart rate Oxygen saturation Respiratory rate Provider Name and Address Organization Details Last Updated DateTime 04/18/2021 99.8 [degF] 89 /min 93 % 20 /min Anu floyd Sgwillis [facility] 2 15:19:49 Date Recorded Body height Body weight Body mass index (BMI) Heart rate Respiratory rate Systolic And Diastolic Provider Name and Address Organization Details Last Updated DateTime 7 180.34 cm 26682.8 4 g 28.5 kg/m2 72 /min 18 /min 118/66 mm[Hg] [facility] 7 17:16:12 Date Recorded Body height Body mass index (BMI) Body weight Heart rate Respiratory rate Systolic And Diastolic Provider Name and Address Organization Details Last Updated DateTime 8 180.34 cm 28.6 kg/m2 82875.4 4 g 80 /min 18 /min 120/80 mm[Hg] [facility] 8 16:29:45 Date Recorded Body height Body weight Body mass index (BMI) Heart rate Oxygen saturation Body temperature Systolic And Diastolic Provider Name and Address Organization Details Last Updated DateTime 6 175.26 cm 94026.1 7 g 31.5 kg/m2 79 /min 90 % 98.3 [degF] 112/72 mm[Hg] Jeannette Mtz [facility] 6 13:02:04 Social History Question Answer Notes LastModified by Organizat ion Details LastModified Time Tobacco Smoking Status Current Every Day Smoker Jeannette Mtz [facility], [place] - [facility] 01/27/2016 12:57:45 Which Illicit Or Recreational Drugs Have You Used? Never [email or web address] Information not available 04/28/2016 Legally Blind In One Or Both Eyes? No Information no t available 04/28/2016 What Was The Date Of Your Most Recent Tobacco Screening? 05/07/2017 Information not available 10/30/2018 What Is Your Relationship Status? [email or web address] Information not available 04/28/2016 Smoke Alarm In Home Yes [email or web address] Information not available 04/28/2016 How Much Tobacco Do You Smoke? 1 PPD [email or web address] Information not available 01/27/2016 Sex: Unknown Functional Status Question Answer Note LastModified by Organizat ion Details LastModified Time Are you currently employed? No [email or web address] Information not available 04/28/2016 Are you able to care for yourself independently? Yes [email or web address] Information not available 04/28/2016 What is your occupation? retired [email or web address] Information not available 04/28/2016 What is your exercise level? Occasional [email or web address] Information not available 04/28/2016 Mental Status None [...] ICD10 Code Diagnosis IMO Codes Diagnosis Note [id number] Joanne Sparks [place] [facility] [address] [address] 01/27/2016 12:42:56 01/27/2016 14:26:23 Upper respiratory infection 21987238 J06.9 [id number] Ronny Belle MD [facility] [address] [address] 05/03/2016 14:53:22 05/04/2016 10:45:20 Hyperlipidemia 71300636 E78.5 Delay when starting to pass urine 7895599 R39.11 Renewal of prescription 136762098 Z76.0 [id number] Ronny Belle MD [facility] [address] [address] 05/07/2017 14:44:15 05/07/2017 17:29:27 Benign prostatic hyperplasia 303409771 N40.0 Essential hypertension 63484361 I10 Nicotine dependence 5629 4008 F17.200 Delay when starting to pass urine 0641728 R39.11 Hyperlipidemia 90679826 E78.5 [id number] Elissa Espinal APRN [facility] [address] [place] [address] 04/18/2021 15:02:10 04/18/2021 15:58:59 Viral screening 737611424 Z11.52 Health Concerns Section Related Observation LastModified by Organization Detai ls LastModified Time None Recorded Concern Status LastModified by Organization Details LastModified Time None Recorded Advance Directives Directive None Recorded Payers Insurance Date Sequence Insurance Name Policy Number Policy Baron Covered Member ID Baron Member ID Guarantor Name 06/23/2021 1 [employer] (MEDICARE REPLACEMENT/A DVANTAGE - PPO) Manoj Ontiveros [id number] Manoj Ontiveros Notes Date Note Type Note Provider Name and Address Organization Details Recorded Time 6 text/html Upper Respiratory SymptomsReported by Patientcough, runny nose, sore throat. Started 1 week ago.ROS as noted in the HPI Joanne Rere young [facility] 01/27/2016 13:54:37 7 text/html Care Management - HyperlipidemiaReported by PatientHPIFor prognosis, patient reportsexpected outcome: improveandprognosis: good. For self care, patient reportsrecent hospitalization/er visit? no. For control, patient reportsimproving. For complications, patient reportsno coronary artery disease,no heart attack,no cardiovascular disease,no pancreatitis, andno stroke. Ronny young [facility] 05/09/2016 13:53:09 8 text/html Care Management [...] (calcium channel you). elevated psa Ronny Belle [facility], [place] - [facility] 05/09/2017 09:18:35 2 text/html Patient presents for rapid COVID test. Denies known exposure. Currently asymptomatic. Elissa Espinal, ANESTHESIOLOGY FELLOW [address], [place], [address], [place] - [facility] 04/18/2021 15:56:58
--- OUTSIDE RECORDS SUMMARY | 2025-03-02 09:58 | XMS_ITS | Encounter Summary ---
Author Organization Healthcare Address [address] [place] [address] Care Team Providers Care Atomic Process Engineer Name Role Phone Ronny Belle MD Primary Care Provider [phone] Carrie James Unavailable [phone] Encounter Details Date Type Department Care Team (Late st Contact Info) Description 05/20/2024 Orders Only External Location [address] [place] [address] Provider, External Social History Tobacco Use Types [...] Info) Description 07/13/2025 10:45 AM EDT Appointment [facility] Ultrasound [address], [address] [place] [address] 07/13/2025 12:40 PM EDT Office Visit [place] [facility] [address], [address] [place] [address] Carrie James PA [address] [place] [address] documented as of this encounter Procedures Procedure [...] on filedocumented in this encounter Care Teams Atomic Process Engineer Relationship Specialty Start Date End Date Ronny Belle MD [facility] [place] [id number] PCP - General 07/01/24 Carrie James PA [address] [facility] [address] [place] [address] Physician Plumbing Hardware Assembler Urology 11/11/24 documented as of this encounter
--- OUTSIDE RECORDS SUMMARY | 2025-03-02 09:58 | XMS_ITS | Clinical Summary ---
Author Organization [facility] Address [address] [place] [address] Care Team Providers Care Unit Leader Name Role Phone Ronny Belle MD Primary Care Provider [phone] Allergies No known active allergies Social History [...] Vaccination (#1) 2024 Insurance MEDICARE Care Teams Unit Leader Relationship Specialty Start Date End Date Ronny Belle MD [address] [place], [place] [phone] PCP - General Family Medicine 04/13/22
--- OUTSIDE RECORDS SUMMARY | 2025-03-02 09:58 | XMS_ITS | Encounter Summary ---
Author Organization Healthcare Address [address] [place] [address] Care Team Providers Care Mercerizing Range Controller Name Role Phone Ronny Belle MD Primary Care Provider [phone] Carrie James Unavailable [phone] Encounter Details Date Type Department Care Team (Late st Contact Info) Description 10/16/2024 Orders Only External Location [address] [place] [address] Provider, External Social History Tobacco Use Types Packs/Day Years Used Date Smoking Tobacco: Former Cigarettes 3 67 1 385 - 2021 Smokeless Tobacco: Never Alcohol Use [...] drink first t herminio in the morning (EYE-HOP SEPARATOR) to steady your nerves or to get [...] EDT Appointment [facility] Ultrasound [address], [address] [place] [address] 07/13/2025 12:40 PM EDT Office Visit [place] [facility] [address] [place] [address] Carrie James PA [address] [place] [address] documented as of this encounter [...] documented as of this encounter Care Teams Mercerizing Range Controller Relationship Specialty Start Date End Date Ronny Belle MD [address] [place] [address] PCP - General 07/01/24 Carrie James PA [address] [place] [address] Physician Appliance Repair Technician Urology 11/11/24 documented as of this encounter
--- OUTSIDE RECORDS SUMMARY | 2025-03-02 09:58 | XMS_ITS | Encounter Summary ---
Author Organization Healthcare Address [address] [place] [address] Care Team Providers Care Tenter Frame Back Tender Name Role Phone Ronny Belle MD Primary Care Provider [phone] Carrie James Unavailable [phone] Encounter Details Date Type Department Care Team (Late st Contact Info) Description 11/14/2024 Results Follow-Up [facility] Urology [address] [place] [address] Carrie James PA [address] [place] [address] Social History Tobacco Use Types [...] drink first t herminio in the morning (EYE-WORKFORCE SERVICES REPRESENTATIVE) to steady your nerves or to get [...] Info) Description 07/13/2025 10:45 AM EDT Appointment [facility] Ultrasound [address] [place] [address] 07/13/2025 12:40 PM EDT Office Visit [place] [facility] [address] [place] [address] Carrie James PA [address] [place] [address] documented as of this encounter Visit Diagnoses Not on filedocumented in this encounter Additional Health Concerns Assessment Noted Time A fall risk assessment has been complete d for the patient 11/11/2024 10:02 AM EDT A Body Mass Index follow-up plan has been documented for the patient 11/21/2024 3:27 PM EDT documented as of this encounter Care Teams Tenter Frame Back Tender Relationship Specialty Start Date End Date Ronny Belle MD [address] [place] [address] PCP - General 07/01/24 Carrie James PA [address] [facility] [address] [place] [address] Physician Interchange Agent Urology 11/11/24 documented as of this encounter
--- OUTSIDE RECORDS SUMMARY | 2025-03-02 09:58 | XMS_ITS | Encounter Summary ---
Author Organization Healthcare Address [address] [place] [address] Care Team Providers Care Senior Data Integration Developer Name Role Phone Ronny Belle MD Primary Care Provider [phone] Carrie James Unavailable [phone] Encounter Details Date Type Department Care Team (Late st Contact Info) Description 05/08/2024 Orders Only External Location [address] [place] [address] Provider, External Social History Tobacco Use Types [...] Description 07/13/2025 10:[address] [facility] Ultrasound [address] [place] [address] 07/13/2025 12:40 PM EDT Office Visit [place] [facility] [address] [place] [address] Carrie James PA [address] [place] [address] documented as of this encounter Procedures Procedure [...] on filedocumented in this encounter Care Teams Senior Data Integration Developer Relationship Specialty Start Date End Date Ronny Belle MD [facility] [place] [id number] PCP - General 07/01/24 Carrie James PA [address] [facility] [address] [place] [address] Physician Real Estate Leasing Agent Urology 11/11/24 documented as of this encounter
[2025-03-02 10:25] VITALS: BP 137/70; PULSE 68; RESP 20; TEMP 36.2; O2SAT 94
[2025-03-02] MEDS: SODIUM CHLORIDE 0.9% 10ML FLUSH SYRINGE 10 ML IV (10:25)
[2025-03-02] MEDS: IRON SUCROSE COMPLEX 200 MG in 0.9 % SODIUM CHLORIDE 100 ML 220 MG IV (10:25)
[2025-03-02 11:10] VITALS: BP 135/78; PULSE 68
== END 2025-03-02 23:59 | disposition home or self-care (01) ==
LOC: INF 09:54
PROVIDERS: PCP Family Medicine; Visit Provider Family Medicine
DX: D50.9 Iron deficiency anemia, unspecified (principal)
CPT/HCPCS: 96365; J1756

== ENCOUNTER 2025-03-09 09:51 | Outpatient (CLI) | payer MEDICARE, SELFPAY ==
--- OUTSIDE RECORDS SUMMARY | 2025-03-09 09:59 | XMS_ITS | Encounter Summary ---
Author Organization Healthcare Address [address] [place] [address] Care Team Providers Care Travel Nurse Name Role Phone Ronny eBlle MD Primary Care Provider [phone] Carrie James Unavailable [phone] Encounter Details Date Type Department Care Team (Late st Contact Info) Description 08/19/2024 Orders Only External Location [address] [place] [address] Provider, External Social History Tobacco Use Types [...] drink first t herminio in the morning (EYE-GRADING MACHINE FEEDER) to steady your nerves or to get [...] Appointment [facility] Ultrasound [address] [place] [address] 07/13/2025 12:40 PM EDT Office Visit [place] [facility] [address] [place] [address] Carrie James PA [address] [place] [address] documented as of this encounter [...] documented as of this encounter Care Teams Travel Nurse Relationship Specialty Start Date End Date Ronny Belle MD [address] [place] [address] PCP - General 07/01/24 Carrie James PA [address] [facility] [address] [place] [address] Physician Backside Grinder Urology 11/11/24 documented as of this encounter
--- OUTSIDE RECORDS SUMMARY | 2025-03-09 09:59 | XMS_ITS | Clinical Summary ---
Author Organization [facility] Address [address] [place] [address], [address] [place] [address] Care Team Providers Care Access Service Representative Name Role Phone Ronny Belle MD Primary Care Provider [phone] Allergies Active Allergy Reactions Criticality Noted Date [...] complete this topic Insurance MEDICARE Care Teams Access Service Representative Relationship Specialty Start Date End Date Ronny Belle MD [address] [place] [address] PCP - General Family Medicine 04/27/22
--- OUTSIDE RECORDS SUMMARY | 2025-03-09 09:59 | XMS_ITS | Clinical Summary ---
Author Organization [facility] Address [address] [place] [address] Care Team Providers Care Life Assurance Representative Name Role Phone Ronny Belle MD Primary Care Provider [phone] Carrie James Unavailable [phone] Allergies Active Allergy Reactions Criticality Noted Date [...] Visit [facility] [address] [place] [address] Carrie James PA Benign prostatic hyperplasia with incomplete bladder emptying (Primary Dx) 01/06/2025 Telephone [facility] [address] [place] [address] Carrie James PA Records/Image Request 01/06/2025 Travel 12/08/2024 Orders Only External Location [address] [place] [address] Provider, External from Last 3 Months Social [...] drink first t herminio in the morning (EYE-HOSPITAL RECRUITER) to steady your nerves or to get [...] Info) Description 07/13/2025 10:45 AM EDT Appointment [facility] Ul[facility]ound [address] [place] [address] 07/13/2025 12:40 PM EDT Office Visit [place] [facility] [address], [address] [place] [address] Carrie James PA [address] [place] [address] Health Maintenance Due Date Last Done Comments [facility]-Medicare Annual Wellness (AWV) 1940 [facility]-/Child/Adol SDOH Screenings 1940 [facility]- SDOH Screenings 1958 [facility]-Adult SDOH Screenings 1958 [facility]-DTaP,Tdap,and Td Vaccines (1 - Tdap) 10/29/1959 [facility]-Pneumococcal Vaccine: 50+ Years (1 of 1 - PCV) 1990 [facility]-Zoster Vaccines (1 of 2) 1990 [facility]-RSV Vaccine: 60+ Years or (1 - 1-dose 75+ series) 10/29/2015 [id number] Vaccine ( - season) 2024 01/25/2022, 02/09/2021, [...] Urine Color Yellow 01/06/2025 8:53 AM EDT [facility] POCT Urine Clarity Clear 01/06/2025 8:53 AM EDT [facility] Urine Glucose Negative Negative mg/dL 01/06/2025 8:53 AM EDT [facility] Urine Bilirubin Negative Negative mg/dL 01/06/2025 8:53 AM EDT [facility] Urine Ketones Negative Negative mg/dL 01/06/2025 8:53 AM EDT [facility] Urine Specific [place] 1.010 1.005 - 1.030 01/06/2025 8:53 AM EDT [facility] Urine Blood Negative Negative 01/06/2025 8:53 AM EDT [facility] pH, Urine 5.5 5.0 - 8.0 01/06/2025 8:53 AM EDT [facility] Protein, Urine Negative Negative mg/dL 01/06/2025 8:53 AM EDT [facility] Urobilinogen, Urine 0.2 0.2, 1.0 EU/dL 01/06/2025 8:53 AM EDT [facility] Nitrite, Urine Negative Negative 01/06/2025 8:53 AM EDT [facility] Urine Leukocyte Esterase Trace(A) Negative 01/06/2025 8:53 AM EDT [facility] Urine 01/06/2025 8:52 AM EDT 01/06/2025 8:53 AM EDT Carrie ALVAREZ LAB POINT OF CARE T EST DOCKED DEVICE UNSOLICITED RESULTS Final Result Performing Organization Address City/State/[facility] Co de Phone Number [facility] [address], [place] * POC US Bladder Volume (01/06/2025) Urine, Volume 165 mL IMAGING Anatomical Region Laterality Modality Other Urine 01/06/2025 Carrie ALVAREZ IMG POINT OF CARE ULTRASOUN D Final Result * XR OUTSIDE IMAGES (12/08/2024 12:48 PM EDT) Anatomical Region Laterality Modality Radiographic Piper ging 12/08/2024 12:4 8 PM EDT us External Provider IMG XR PROCEDURES Final Result from Last [address] [place] [address] [place] [address] MEDICARE Advance Directives * Full Code (Latest Code Status on File) Date Activated Date Inactivated Comments 08/22/2024 4:19 PM 08/23/2024 6:07 PM Question Answer Comments I have reviewed the capacity from the link above and, if needed, have updated to appropriate status: Yes Care Teams Life Assurance Representative Relationship Specialty Start Date End Date Ronny Belle MD [facility] [place] [address] PCP - General 07/01/24 Carrie James PA [address] [facility] [address] [place] [address] Physician Pullman Clerk Urology 11/11/24
--- OUTSIDE RECORDS SUMMARY | 2025-03-09 09:59 | XMS_ITS | Encounter Summary ---
Author Organization Healthcare Address [address] [place] [address] Care Team Providers Care Tool Checker Name Role Phone Ronny Belle MD Primary Care Provider [phone] Carrie James Unavailable [phone] Encounter Details Date Type Department Care Team (Late st Contact Info) Description 05/20/2024 Orders Only External Location [address] [place] [address] Provider, External Social History Tobacco Use Types [...] 07/13/2025 10:45 AM EDT Appointment [facility] Ultrasound [address] [place] [address] 07/13/2025 12:40 PM EDT Office Visit [place] [facility] [address], [address] [place] [address] Carrie James PA [address] [place] [address] documented as of this encounter Procedures Procedure [...] on filedocumented in this encounter Care Teams Tool Checker Relationship Specialty Start Date End Date Ronny Belle MD [facility] [place] [address] PCP - General 07/01/24 Carrie James PA [address] [facility] [address] [place] [address] Physician Product Craftsman Urology 11/11/24 documented as of this encounter
--- OUTSIDE RECORDS SUMMARY | 2025-03-09 09:59 | XMS_ITS | Data Portability ---
Author Organization [facility] Address [address] [place] [address] Assessment Encounter Date Assessment Date Assessment LastModified by Organization Details LastModified Time 05/07/2017 05/07/2017 Nicotine Dependence ,smoking cessation discussed at length Patient has smoked since age 15 BPH Rx Leslye Discontinue Finasteride due to on going nocturia [email or web address] Not available 05/07/2017 17:37:51 04/18/2021 04/18/2021 F/U as needed [place] [address] Not available 04/18/2021 15:56:26 Plan of Treatment Reminders Order Date Submit Date Provider Last Modified By Organization Details Last Modified Time Details Appointments None recorde d. Lab rapid SARS CoV + SARS CoV 2 Ag, QL IA, respira tory specime n 2021 022 [email or web address] [facility], [address] , [address], 2 15:56:27 PSA, serum or plasma 2017 018 ZAK [facility], [address], [address], [place], [address], 8 08:42:46 PSA, serum or plasma 2016 017 sneus [facility], [address], [address], [place], [address], 7 12:58:35 lipid panel, serum 2016 017 sneus [facility], [address], [address], [place], [address], 7 12:58:35 CMP, serum or plasma 2016 017 sneus [facility], [address], [address], [place], [address], 7 12:58:35 Referral None recorde d. Procedures None recorde d. Surgeries None recorde d. Imaging None recorde d. Medication Orders Lotrel 10 mg-20 mg capsule [address], [address], 8 20:31:03 Lipitor 20 mg tablet [address], [address], 8 20:31:03 Zetia 10 mg tablet [address], [address], 8 20:31:03 Leslye 0.5 mg-0.4 mg capsule , extende d release [address], [address], 8 20:31:03 finaste ride 5 mg tablet [address], [address], 8 17:04:32 Lotrel 10 mg-20 mg capsule [address], [address], 7 12:58:35 Zetia 10 mg tablet [email or web address], [address], 7 12:58:35 Lipitor 20 mg tablet [email or web address], [address], 7 12:58:35 Lincoci n 300 mg/mL injecti on solutio n 2015 [address], [address], 7 17:45:41 dexamet hasone sodium phospha te 10 mg/mL injecti on solutio n 2015 [address], [address], 7 17:45:48 Patient TargetsNo targets recorded. Patient Instructions Encounter Date Encounter Id Patient Instructions Last Modified By Organization Details Last Modified Time 01/27/2016 [id number] keep well hydrated, cool mist humidifer, no smoking [email or web address] Not available 01/27/2016 13:54:18 05/07/2017 [id number] Quitting Tobacco : Care Instructions [email or web address] Not available 05/07/2017 20:31:03 smoking cessatio n counseling, greater than 3 minutes up to 10 minutes* [email or web address] Not available 05/14/2017 08:25:34 high blood pressure: [...] LATIO N INDIC ATED. Not Available [facility] ([facility]) [address] [place], [address], 05/04/2016 08:45:29 05/04/19 17 05/04/2016 CMP, serum or plasm a BUN 13 mg/dL 8-27 Not Available [facility] ([facility]) [address] [place], [address], 05/04/2016 08:45:29 05/04/19 17 05/04/2016 CMP, serum or plasm a creatinine, serum 1.12 mg/dL 0.76-1 .27 Not Available [facility] ([facility]) [address] [facility], [place], [address], 05/04/2016 08:45:29 05/04/19 17 05/04/2016 CMP, serum or plasm a eGFR if nonafricn AM 64 mL/mi n/1.7 3 >59 Not Available [facility] ([facility]) [address] [facility], [place], [address], 05/04/2016 08:45:29 05/04/19 17 05/04/2016 CMP, serum or plasm a eGFR if africn AM 74 mL/mi n/1.7 3 >59 Not Available [facility] ([facility]) [address] [place], [address], 05/04/2016 08:45:29 05/04/19 17 05/04/2016 CMP, serum or plasm a BUN/creatini ne ratio 12 10-22 Not Available [facility] ([facility]) [address] [place], [address], 05/04/2016 08:45:29 05/04/19 17 05/04/2016 CMP, serum or plasm a sodium, serum 142 mmol/ L 134-14 4 Not Available [facility] ([facility]) [address] [place], [address], 05/04/2016 08:45:29 05/04/19 17 05/04/2016 CMP, serum or plasm a potassium, serum 4.7 mmol/ L 3.5-5. 2 Not Available [facility] ([facility]) [address] [place], [address], 05/04/2016 08:45:29 05/04/1905/04/2016 CMP, serum or plasm a chloride, serum 100 mmol/ L 96-106 Not Available [facility] ([facility]) [address] [place] [address], [address], 05/04/2016 08:45:29 05/04/19 17 05/04/2016 CMP, serum or plasm a carbon dioxide, total 22 mmol/ L 18-29 Not Available [facility] ([facility]) [address] [place] [address], [address], 05/04/2016 08:45:29 05/04/19 17 05/04/2016 CMP, serum or plasm a calcium, serum 9.2 mg/dL 8.6-10 .2 Not Available [facility] ([facility]) [address] [place], [address], 05/04/2016 08:45:29 05/04/1905/04/2016 CMP, serum or plasm a protein, total, serum 6.8 g/dL 6.0-8. 5 Not Available [facility] ([facility]) [address] [place] [address], [address], 05/04/2016 08:45:29 05/04/1905/04/2016 CMP, serum or plasm a albumin, serum 4.4 g/dL 3.5-4. 8 Not Available [facility] ([facility]) [address] [facility] [place], [address], 05/04/2016 08:45:29 05/04/19 17 05/04/2016 CMP, serum or plasm a globulin, total 2.4 g/dL 1.5-4. 5 Not Available [facility] ([facility]) [address] [facility] [place], [address], 05/04/2016 08:45:29 05/04/19 17 05/04/2016 CMP, serum or plasm a A/G ratio 1.8 1.1-2. 5 Not Available [facility] ([facility]) [address] [facility] [place], [address], 05/04/2016 08:45:29 05/04/19 17 05/04/2016 CMP, serum or plasm a bilirubin, total 0.4 mg/dL 0.0-1. 2 Not Available [facility] ([facility]) [address] [place], [address], 05/04/2016 08:45:29 05/04/1905/04/2016 CMP, serum or plasm a alkaline phosphatase, S 84 IU/L 39-117 Not Available [facility] ([facility]) [address] [place], [address], 05/04/2016 08:45:29 05/04/19 17 05/04/2016 CMP, serum or plasm a AST (SGOT) 19 IU/L 0-40 Not Available [facility] ([facility]) [address] [place], [address], 05/04/2016 08:45:29 05/04/1905/04/2016 CMP, serum or plasm a ALT (SGPT) 15 IU/L 0-44 Not Available [facility] ([facility]) [address] [facility] [place], [address], 05/04/2016 08:45:29 05/04/1905/04/2016 lipid panel , serum cholesterol, total 143 mg/dL 100-19 9 Not Available [facility] ([facility]) [address] [place], [address], 05/04/2016 08:45:30 05/04/19 17 05/04/2016 lipid panel , serum triglyceride s 161 mg/dL 0-149 above high normal Not Available [facility] ([facility]) [address] [place], [address], 05/04/2016 08:45:30 05/04/19 17 05/04/2016 lipid panel , serum HDL cholesterol 48 mg/dL >39 Not Available [facility]) [address] [place], [address], 05/04/2016 08:45:30 05/04/19 17 05/04/2016 lipid panel , serum VLDL cholesterol nakia 32 mg/dL 5-40 Not Available [facility] ([facility]) [address] [place], [address], 05/04/2016 08:45:30 05/04/1905/04/2016 lipid panel , serum LDL cholesterol calc 63 mg/dL 0-99 Not Available [facility] ([facility]) [address] [place], [address], 05/04/2016 08:45:30 05/04/1905/04/2016 lipid panel , serum comment: COORDINATE MEASURING MACHINE TECHNICIAN Not Available [facility] ([facility]) [address] [place], [address], 05/04/2016 08:45:30 05/04/1905/04/2016 PSA, serum or plasm [...] OR KITS CANNO T BE USED INTER [facility] . RESUL TS CANNO T BE INTER PRETE D ABSOL AKIACHAK EVIDE NCE OF THE PRESE NCE OR ABSEN CE OF [facility] SE. Not Available [facility] ([facility]) [address] [facility], [place], [address], 05/04/2016 08:45:31 05/04/19 17 05/04/2016 parminder e note please note COMMEN T THE DATE AND/O R TIME OF COLLE CTION WAS NOT INDIC ATED ON THE REQUI SITIO N REQUI RED BY STATE AND [place] LAW. THE DATE OF RECEI PT OF THE SPECI MEN WAS USED THE COLLE CTION DATE IF NOT SUPPL IED. Not Available [facility] ([facility]) [address] [facility], [place], [address], 05/04/2016 08:45:31 05/07/19 18 05/08/2017 PSA, serum [...] or kits canno t be [facility] . Resul ts canno t be inter prete d as absol ekwok evide nce of the prese nce or absen ce of [facility] dise se. Not Available [facility] ([facility]) [address], [place], [address], 05/08/2017 08:42:46 04/18/1904/18/2021 rapid SARS CoV + SARS CoV 2 Ag, QL IA, respi rator y speci men SARS CoV antigen Negati ve Not Available [facility] [address] , [address], 04/18/2021 13:07:32 Result Notes None recorded. Problems Name Problem SNOMED Code Status Onset Date Resolution Date Notes Provider Name and Address Organization Details Recorded Time Hyperlipidemia 84696292 Active 2015 Crystal Bibi [place], [place] - [facility] 6 12:56:25 Essential hypertension 10543351 Active 2015 Crystal Bibi [place], [place] - [facility] 6 12:56:31 Benign prostatic hyperplasia 482697499 Active 2015 Crystal Bibi [place], [place] - [facility] 6 12:56:57 Slowing of urinary stream 93628732 Active 2015 Crystal Bibi [place], [place] - [facility] 6 12:57:10 Nicotine dependence 99624411 Active 2017 Rosa Deleon in [place], [place] - [facility] 8 16:53:50 Problem Notes Documentation Provider Name and Address Organization Details Recorded Time Hospital Consult Note : [facility] Consultation REPORT #: [id number] REPORT STATUS: Signed DATE: 07/06/21 TIME: 1533 PATIENT: MANOJ ONTIVEROS UNIT #: [id number] ROOM/BED: 319-A AGE: 80 SEX: M ATTEND: [...] hyperplasia. The patient presented today to the [facility] Emergency Department after a one day history [...] no calf tenderness, no clubbing, no cyanosis Neuro/ETCHER APPRENTICE: alert, oriented X 3, normal speech Skin: [...] % (Auto) (35 - 75 %) 65 [place] % (Auto) (0 - 15 %) 9 [...] transcribed note. Plan discussed with: patient at 0710 at 8046 RPT #: [id number] END OF REPORT CC'ed Logic: Attending Provider: MARIA G GRAY Referring Provider: PHYSICIAN NO Consulting Provider: SHALINI Hewitt Admitting Provider: MARIA G Espinal, IT CONSULTING DIRECTOR [address], [place], [address], [place] - [facility] 07/11/2021 13:39:19 Procedures Surgical [...] Name and Address Organization Details Recorded Time 28823 Product containin g penicilli n (product) medicatio n Not available Not available Not available 01/14/20162008 32388 8001 SNOMED Not Available [facility] 6 10:04:02 Medications Name Sig Start Date [...] 93 % 20 /min Anu floyd Sgwillis [facility] 2 15:19:49 Date Recorded Body height Body weight Body mass index (BMI) Heart rate Respiratory rate Systolic And Diastolic Provider Name and Address Organization Details Last Updated DateTime 7 180.34 cm 58493.8 4 g 28.5 kg/m2 72 /min 18 /min 118/66 mm[Hg] [facility] 7 17:16:12 Date Recorded Body height Body mass index (BMI) Body weight Heart rate Respiratory rate Systolic And Diastolic Provider Name and Address Organization Details Last Updated DateTime 8 180.34 cm 28.6 kg/m2 63179.4 4 g 80 /min 18 /min 120/80 mm[Hg] [facility] 8 16:29:45 Date Recorded Body height Body weight Body mass index (BMI) Heart rate Oxygen saturation Body temperature Systolic And Diastolic Provider Name and Address Organization Details Last Updated DateTime 6 175.26 cm 48598.1 7 g 31.5 kg/m2 79 /min 90 % 98.3 [degF] 112/72 mm[Hg] Jeannette Mtz [facility] 6 13:02:04 Social History Question Answer Notes LastModified by Organizat ion Details LastModified Time Tobacco Smoking Status Current Every Day Smoker Jeannette Mtz [facility], [place] - [facility] 01/27/2016 12:57:45 Which Illicit Or Recreational Drugs Have You Used? Never Information not available 04/28/2016 Legally Blind In One Or Both Eyes? No [email or web address] Information no t available 04/28/2016 What Was The Date Of Your Most Recent Tobacco Screening? 05/07/2017 Information not available 10/30/2018 What Is Your Relationship Status? [email or web address] Information not available 04/28/2016 Smoke Alarm In Home Yes [email or web address] Information not available 04/28/2016 How Much Tobacco Do You Smoke? 1 PPD [email or web address] Information not available 01/27/2016 Sex: Unknown Functional Status Question Answer Note LastModified by Organizat ion Details LastModified Time Are you currently employed? No [email or web address] Information not available 04/28/2016 Are you able to care for yourself independently? Yes [email or web address] Information not available 04/28/2016 What is your occupation? retired [email or web address] Information not available 04/28/2016 What is your exercise level? Occasional [email or web address] Information not available 04/28/2016 Mental Status None [...] ICD10 Code Diagnosis IMO Codes Diagnosis Note [id number] Joanne BengeMARCELINO [facility] [address] [address] 01/27/2016 12:42:56 01/27/2016 14:26:23 Upper respiratory infection 12545804 J06.9 [id number] Ronny Belle MD [facility] [address] [address] 05/03/2016 14:53:22 05/04/2016 10:45:20 Hyperlipidemia 10508305 E78.5 Delay when starting to pass urine 8585575 R39.11 Renewal of prescription 432607969 Z76.0 [id number] Ronny Belle MD [facility] [address] [address] 05/07/2017 14:44:15 05/07/2017 17:29:27 Benign prostatic hyperplasia 079201506 N40.0 Essential hypertension 58753199 I10 Nicotine dependence 5629 4008 F17.200 Delay when starting to pass urine 7431138 R39.11 Hyperlipidemia 81756476 E78.5 [id number] Elissa Espinal APRN [facility] [address] [place] [address] 04/18/2021 15:02:10 04/18/2021 15:58:59 Viral screening 286514503 Z11.52 Health Concerns Section Related Observation LastModified by Organization Detai ls LastModified Time None Recorded Concern Status LastModified by Organization Details LastModified Time None Recorded Advance Directives Directive None Recorded Payers Insurance Date Sequence Insurance Name Policy Number Policy Baron Covered Member ID Baron Member ID Guarantor Name 06/23/2021 1 [employer] (MEDICARE REPLACEMENT/A DVANTAGE - PPO) Manoj Ontiveros [id number] Manoj Ontiveros Notes Date Note Type Note Provider Name and Address Organization Details Recorded Time 6 text/html Upper Respiratory SymptomsReported by Patientcough, runny nose, sore throat. Started 1 week ago.ROS as noted in the HPI Joanne Rere young [facility] 01/27/2016 13:54:37 7 text/html Care Management - HyperlipidemiaReported by PatientHPIFor prognosis, patient reportsexpected outcome: improveandprognosis: good. For self care, patient reportsrecent hospitalization/er visit? no. For control, patient reportsimproving. For complications, patient reportsno coronary artery disease,no heart attack,no cardiovascular disease,no pancreatitis, andno stroke. Ronny young [facility] 05/09/2016 13:53:09 8 text/html Care [...] (calcium channel you). elevated psa Ronny Belle [facility], [place] - [facility] 05/09/2017 09:18:35 2 text/html Patient presents for rapid COVID test. Denies known exposure. Currently asymptomatic. Elissa Espinal, IT CONSULTING DIRECTOR [address], [place], [address], [place] - [facility] 04/18/2021 15:56:58
--- OUTSIDE RECORDS SUMMARY | 2025-03-09 09:59 | XMS_ITS | Encounter Summary ---
Author Organization Healthcare Address [address] [place] [address] Care Team Providers Care Music Library Assistant Name Role Phone Ronny Belle MD Primary Care Provider [phone] Carrie James Unavailable [phone] Encounter Details Date Type Department Care Team (Late st Contact Info) Description 10/16/2024 Orders Only External Location [address] [place] [address] Provider, External Social History Tobacco Use Types Packs/Day Years Used Date Smoking Tobacco: Former Cigarettes 3 67 1 525 - 2021 Smokeless Tobacco: Never Alcohol Use [...] drink first t herminio in the morning (EYE-ELECTROCARDIOGRAPH OPERATOR) to steady your nerves or to [...] Info) Description 07/13/2025 10:45 AM EDT Appointment [facility] Ultrasound [address] [place] [address] 07/13/2025 12:40 PM EDT Office Visit [facility] [address] [place] [address] Carrie James PA [address] [place] [address] documented as of this encounter [...] documented as of this encounter Care Teams Music Library Assistant Relationship Specialty Start Date End Date Ronny Belle MD [address] [place] [address] PCP - General 07/01/24 Carrie James PA [address] [place] [address] Physician Licensed Prosthetist/Orthotist Urology 11/11/24 documented as of this encounter
--- OUTSIDE RECORDS SUMMARY | 2025-03-09 09:59 | XMS_ITS | Encounter Summary ---
Author Organization Healthcare Address [address] [place] [address] Care Team Providers Care Nurse Specialist Name Role Phone Ronny Belle MD Primary Care Provider [phone] Carrie James Unavailable [phone] Encounter Details Date Type Department Care Team (Late st Contact Info) Description 06/09/2024 Orders Only External Location [address] [place] [address] Provider, External Social History Tobacco Use Types [...] Info) Description 07/13/2025 10:45 AM EDT Appointment [facility] Ultrasound [address] [place] [address] 07/13/2025 12:40 PM EDT Office Visit [facility] [address], [address] [place] [address] Carrie James PA [address] [place] [address] documented as of this encounter Procedures Procedure [...] on filedocumented in this encounter Care Teams Nurse Specialist Relationship Specialty Start Date End Date Ronny Belle MD [facility]2 [place] [address] PCP - General 07/01/24 Carrie James PA [address] [facility] [address] [place] [address] Physician Upholstered Goods Crafter Urology 11/11/24 documented as of this encounter
--- OUTSIDE RECORDS SUMMARY | 2025-03-09 09:59 | XMS_ITS | Encounter Summary ---
Author Organization Healthcare Address [address] [place] [address] Care Team Providers Care Program Host Name Role Phone Ronny Belle MD Primary Care Provider [phone] Carrie James Unavailable [phone] Encounter Details Date Type Department Care Team (Late st Contact Info) Description 10/16/2024 Orders Only External Location [address] [place] [id number] Provider, External Social History Tobacco Use Types [...] drink first t herminio in the morning (EYE-PUBLICITY WRITER) to steady your nerves or to get [...] AM EDT Appointment [facility] Ultrasound [address] [place] [address] 07/13/2025 12:40 PM EDT Office Visit [facility] [address], [address] [place] [address] Carrie James PA [address] [place] [address] documented as of this encounter [...] documented as of this encounter Care Teams Program Host Relationship Specialty Start Date End Date Ronny Belle MD [address] [place] [address] PCP - General 07/01/24 Carrie James PA [address] [place] [address] Physician Installation Service Representative Urology 11/11/24 documented as of this encounter
--- OUTSIDE RECORDS SUMMARY | 2025-03-09 09:59 | XMS_ITS | Clinical Summary ---
Author Organization [facility] [place] [address] Care Team Providers Care Recreation Supervisor Name Role Phone Unavailable Primary Care Provider [...]
--- OUTSIDE RECORDS SUMMARY | 2025-03-09 09:59 | XMS_ITS | Encounter Summary ---
Author Organization Healthcare Address [address] [place] [address] Care Team Providers Care Control System Computer Scientist Name Role Phone Ronny Belle MD Primary Care Provider [phone] Carrie James Unavailable [phone] Encounter Details Date Type Department Care Team (Late st Contact Info) Description 05/20/2024 Orders Only External Location [address] [place] [address] Provider, External Social History Tobacco Use Types [...] Info) Description 07/13/2025 10:45 AM EDT Appointment [facility] Ultrasound [address] [place] [address] 07/13/2025 12:40 PM EDT Office Visit [facility] [address], [address] [place] [address] Carrie James PA [address] [place] [address] documented as of this encounter Procedures Procedure [...] on filedocumented in this encounter Care Teams Control System Computer Scientist Relationship Specialty Start Date End Date Ronny Belle MD [facility] [place] [id number] PCP - General 07/01/24 Carrie James PA [address] [facility] [address] [place] [address] Physician Shoe Reconditioner Urology 11/11/24 documented as of this encounter
--- OUTSIDE RECORDS SUMMARY | 2025-03-09 09:59 | XMS_ITS | Clinical Summary ---
Author Organization [facility] Address [address] [place] [address] Care Team Providers Care Passenger Attendant Name Role Phone Ronny Belle MD Primary Care Provider [phone] Allergies No known active allergies Social History [...] Vaccination (#1) 2024 Insurance MEDICARE Care Teams Passenger Attendant Relationship Specialty Start Date End Date Ronny Belle MD [address] [place], [place] [id number] PCP - General Family Medicine 04/13/22
--- OUTSIDE RECORDS SUMMARY | 2025-03-09 09:59 | XMS_ITS | Encounter Summary ---
Author Organization Healthcare Address [address] [place] [address] Care Team Providers Care Supplemental Manager Name Role Phone Ronny Belle MD Primary Care Provider [phone] Carrie James Unavailable [phone] Encounter Details Date Type Department Care Team (Late st Contact Info) Description 12/08/2024 Orders Only External Location [address] [place] [id number] Provider, External Social History Tobacco Use Types Packs/Day Years Used Date Smoking Tobacco: Former Cigarettes 3 67 1 025 - 2021 Smokeless Tobacco: Never Alcohol Use [...] drink first t herminio in the morning (EYE-VP DESIGN) to steady your nerves or to get [...] Appointment [facility] Ultrasound [address] [place] [address] 07/13/2025 12:40 PM EDT Office Visit [facility] [address], [address] [place] [address] Carrie James PA [address] [place] [address] documented as of this encounter [...] documented as of this encounter Care Teams Supplemental Manager Relationship Specialty Start Date End Date Ronny Belle MD [address] [place] [address] PCP - General 07/01/24 Carrie James PA [address] [place] [address] Physician Hairspring Studder Urology 11/11/24 documented as of this encounter
--- OUTSIDE RECORDS SUMMARY | 2025-03-09 09:59 | XMS_ITS | Encounter Summary ---
Author Organization Healthcare Address [address] [place] [address] Care Team Providers Care Wire Mill Operator Name Role Phone Ronny Belle MD Primary Care Provider [phone] Carrie James Unavailable [phone] Encounter Details Date Type Department Care Team (Late st Contact Info) Description 05/20/2024 Orders Only External Location [address] [place] [address] Provider, External Social History Tobacco Use Types [...] EDT Appointment [facility] Ultrasound [address] [place] [address] 07/13/2025 12:40 PM EDT Office Visit [place] [facility] [address], [address] [place] [address] Carrie James PA [address] [place] [address] documented as of this encounter Procedures Procedure [...] on filedocumented in this encounter Care Teams Wire Mill Operator Relationship Specialty Start Date End Date Ronny Belle MD [facility]2 [place] [address] PCP - General 07/01/24 Carrie James PA [address] [facility] [address] [place] [address] Physician Log Operations Coordinator Urology 11/11/24 documented as of this encounter
--- OUTSIDE RECORDS SUMMARY | 2025-03-09 09:59 | XMS_ITS | Encounter Summary ---
Author Organization Healthcare Address [address] [place] [address] Care Team Providers Care Child Care Specialist Name Role Phone Ronny Belle MD Primary Care Provider [phone] Carrie James Unavailable [phone] Encounter Details Date Type Department Care Team (Late st Contact Info) Description 10/13/2024 Orders Only External Location [address] [place] [id number] Provider, External Social History Tobacco Use Types Packs/Day Years Used Date Smoking Tobacco: Former Cigarettes 3 67 1 845 - 2021 Smokeless Tobacco: Never Alcohol Use [...] first t herminio in the morning (EYE-SCHOOL ATTENDANCE SECRETARY) to steady your nerves or to get [...] 07/13/2025 10:45 AM EDT Appointment [facility] Ultrasound [address] [place] [address] 07/13/2025 12:40 PM EDT [facility] [address], [address] [place] [address] Carrie James PA [address] [place] [address] documented as of this [...] documented as of this encounter Care Teams Child Care Specialist Relationship Specialty Start Date End Date Ronny Belle MD [address] [place] [address] PCP - General 07/01/24 Carrie James PA [address] [place] [address] Physician Drapery Hand Urology 11/11/24 documented as of this encounter
--- OUTSIDE RECORDS SUMMARY | 2025-03-09 09:59 | XMS_ITS | Encounter Summary ---
Author Organization Healthcare Address [address] [place] [address] Care Team Providers Care Exhauster Name Role Phone Ronny Belle MD Primary Care Provider [phone] Carrie James Unavailable [phone] Encounter Details Date Type Department Care Team (Late st Contact Info) Description 11/14/2024 Results Follow-Up [facility] Urology [address] [place] [address] Carrie James PA [address] [place] [address] Social History Tobacco Use Types [...] drink first t herminio in the morning (EYE-CYLINDER DIE MACHINE HELPER) to steady your nerves or to [...] Info) Description 07/13/2025 10:45 AM EDT Appointment [facility] Ultrasound [address] [place] [address] 07/13/2025 12:40 PM EDT Office Visit [facility] [address], [address] [place] [address] Carrie James PA [address] [place] [address] documented as of this encounter Visit Diagnoses Not on filedocumented in this encounter Additional Health Concerns Assessment Noted Time A fall risk assessment has been complete d for the patient 11/11/2024 10:02 AM EDT A Body Mass Index follow-up plan has been documented for the patient 11/21/2024 3:27 PM EDT documented as of this encounter Care Teams Exhauster Relationship Specialty Start Date End Date Ronny Belle MD [address] [place] [address] PCP - General 07/01/24 Carrie James PA [address] [facility] [address] [place] [address] Physician Histology Teacher Urology 11/11/24 documented as of this encounter
--- OUTSIDE RECORDS SUMMARY | 2025-03-09 09:59 | XMS_ITS | Encounter Summary ---
Author Organization Healthcare Address [address] [place] [address] Care Team Providers Care Table Games Dealer Name Role Phone Ronny Belle MD Primary Care Provider [phone] Carrie James Unavailable [phone] Encounter Details Date Type Department Care Team (Late st Contact Info) Description 10/16/2024 Orders Only External Location [address] [place] [phone] Provider, External Social History Tobacco Use Types Packs/Day Years Used Date Smoking Tobacco: Former Cigarettes 3 67 1 435 - 2021 Smokeless Tobacco: Never Alcohol Use [...] drink first t herminio in the morning (EYE-MEDICAL LEAD) to steady your nerves or to [...] Info) Description 07/13/2025 10:45 AM EDT Appointment [facility] Ultrasound [address] [place] [address] 07/13/2025 12:40 PM EDT Office Visit [place] [facility] [address] [place] [address] Carrie James PA [address] [place] [address] documented as of this encounter [...] documented as of this encounter Care Teams Table Games Dealer Relationship Specialty Start Date End Date Ronny Belle MD [address] [place] [address] PCP - General 07/01/24 Carrie James PA [address] [place] [address] Physician Eyelet Machine Operator Urology 11/11/24 documented as of this encounter
--- OUTSIDE RECORDS SUMMARY | 2025-03-09 09:59 | XMS_ITS | Encounter Summary ---
Author Organization Healthcare Address [address] [place] [address] Care Team Providers Care Mandarin Tutor Name Role Phone Ronny Belle MD Primary Care Provider [phone] Crarie James Unavailable [phone] Encounter Details Date Type Department Care Team (Late st Contact Info) Description 05/08/2024 Orders Only External Location [address] [place] [address] Provider, External Social History Tobacco Use Types [...] Info) Description 07/13/2025 10:45 AM EDT Appointment [facility] Ultrasound [address] [place] [address] 07/13/2025 12:40 PM EDT Office Visit [place] [facility] [address] [place] [address] Carrie James PA [address] [place] [address] documented as of this encounter Procedures Procedure [...] on filedocumented in this encounter Care Teams Mandarin Tutor Relationship Specialty Start Date End Date Ronny Belle MD [facility] [place] [id number] PCP - General 07/01/24 Carrie James PA [address] [facility] [address] [place] [address] Physician Reserve Operator Urology 11/11/24 documented as of this encounter
[2025-03-09 10:05] VITALS: BP 101/49; PULSE 66; RESP 14; TEMP 36.6; O2SAT 95
[2025-03-09] MEDS: IRON SUCROSE COMPLEX 200 MG in 0.9 % SODIUM CHLORIDE 100 ML 220 MG IV (10:05)
[2025-03-09 10:40] VITALS: BP 103/52; PULSE 70; RESP 14; O2SAT 95
== END 2025-03-09 23:59 | disposition home or self-care (01) ==
LOC: INF 09:52
PROVIDERS: PCP Family Medicine; Visit Provider Family Medicine
DX: D50.9 Iron deficiency anemia, unspecified (principal)
CPT/HCPCS: 96365; J1756

== ENCOUNTER 2025-03-18 11:01 | Outpatient (CLI) | payer MEDICARE, SELFPAY ==
[2025-03-18] MEDS: IRON SUCROSE COMPLEX 200 MG in 0.9 % SODIUM CHLORIDE 100 ML 220 MG IV (11:18)
[2025-03-18 11:22] VITALS: BP 99/55; PULSE 86; RESP 18; O2SAT 93
[2025-03-18 12:05] VITALS: BP 115/61; PULSE 59; RESP 18; O2SAT 94
== END 2025-03-18 23:59 | disposition home or self-care (01) ==
PROVIDERS: PCP Family Medicine; Visit Provider Family Medicine
DX: D50.9 Iron deficiency anemia, unspecified (principal)
CPT/HCPCS: 96365; J1756